=== PATIENT | male | born 1950 ===

== ENCOUNTER 2021-07-20 12:05 | Inpatient (IN) | payer MEDICARE ==
[~2021-07-20] VITALS: Ht 172.7 cm; Wt 62.9 kg
[2021-07-20] MEDS ORDERED: MELATONIN 3 MG TABLET PO PRN (14:00)
[2021-07-20] MEDS ORDERED: guaiFENesin/CODEINE (ROBITUSSIN AC) 10ML UDC PO PRN (14:00)
[2021-07-20] MEDS ORDERED: LOPERAMIDE 2 MG (IMODIUM) TABLET PO PRN (14:00)
[2021-07-20] MEDS ORDERED: ONDANSETRON 4 MG (ZOFRAN) ORAL DISSOLVE TAB PO PRN ×2 (14:00→18:30)
[2021-07-20] MEDS ORDERED: BISACODYL 10 MG SUPP (DULCOLAX) PR PRN (14:00)
[2021-07-20] MEDS ORDERED: DOCUSATE SODIUM 100 MG (COLACE) CAP PO PRN (14:00)
[2021-07-20] MEDS ORDERED: ALPRAZolam 0.25 MG (XANAX) TAB PO PRN (14:00)
[2021-07-20] MEDS ORDERED: LACTULOSE SYRUP 10GM/15ML (ENULOSE) 30ML UDC PO PRN (14:00)
[2021-07-20] MEDS ORDERED: ACETAMINOPHEN 325 MG TABLET PO PRN (14:00)
[2021-07-20] MEDS ORDERED: diphenhydrAMINE 25 MG TAB (BENADRYL) PO PRN (14:00)
[2021-07-20] MEDS ORDERED: FLEET ENEMA ADULT 1 EA BTL PR PRN (14:00)
[2021-07-20] MEDS ORDERED: ACET-2267 PO (14:21)
[2021-07-20] MEDS ORDERED: OMEG-154 PO (14:21)
[2021-07-20] MEDS ORDERED: ONDA-106 PO (14:21)
[2021-07-20] MEDS ORDERED: ASPI-1238 PO (14:21)
[2021-07-20] MEDS ORDERED: TRAM50TA3 PO (14:21)
[2021-07-20] MEDS ORDERED: ACET325C7 PO (14:21)
[2021-07-20] MEDS ORDERED: CETI10TA17 PO (14:21)
[2021-07-20] MEDS ORDERED: VIT1CAPS44 PO (14:21)
[2021-07-20] MEDS ORDERED: FAMO-119 PO (14:21)
[2021-07-20] MEDS ORDERED: LATA2.5D19 OD (14:21)
[2021-07-20] MEDS ORDERED: ATOR40TA70 PO (14:21)
[2021-07-20] MEDS ORDERED: SENN-109 PO (14:21)
[2021-07-20] MEDS ORDERED: BRIM5DRO12 OD (14:21)
[2021-07-20] MEDS ORDERED: POLY17PO6 PO (14:21)
[2021-07-20] MEDS ORDERED: ATEN50TA PO (14:21)
[2021-07-20] MEDS ORDERED: DEXA4TAB PO (14:21)
[2021-07-20] MEDS ORDERED: DORZ10DR22 OD (15:01)
[2021-07-20] MEDS ORDERED: DICY10CA12 PO (15:01)
[2021-07-20] MEDS ORDERED: PRED5DRO17 OD (15:01)
[2021-07-20] MEDS ORDERED: KETO5DRO OD (15:01)
[2021-07-20] MEDS ORDERED: NETA2.5D OU (15:04)
--- OUTSIDE RECORDS SUMMARY | 2021-07-20 15:41 | XMS REPORT | Clinical Summary ---
Author Author [facility] Organization [facility] Address Unknown Phone Unavailable Care Team Providers Care Parts Counter Representative Name Role Phone Angelo Gordon MD PCP Bartolo Cornejo MD Unavailable Source Comments Some departments are not documenting in the electronic medical record. If you d o not see the information that you expected, contact Release of Information in [facility] [employer] Information Management department at [phone] for further assistan ce in locating additional records.[facility] Allergies Comments Active Allergy Reactions Severity Noted Date Erythromycin RASH Medium 05/27/2020 Chlorhexidine Gluconate RASH Medium 2020 Tegaderm BLISTERS High 11/02/2020 Medications End Date Status Medication Sig Dispensed Refills Start Date Active atenoloL (TENORMIN) 50 mg Take 50 mg by 0 tablet mouth every 0 morning. Active brimonidine (ALPHAGAN) INSTILL 1 0 04/03/ 02 0.2 % ophthalmic solution DROP INTO 0 RIGHT EYE TWICE DAILY Active dorzolamide-timoloL INSTILL 1 0 (COSOPT) 2-0.5 % DROP INTO 0 ophthalmic solution RIGHT EYE TWICE DAILY Active latanoprost (XALATAN) INSTILL 1 0 04/29/20 2 0.005 % ophthalmic DROP INTO 0 solution RIGHT EYE AT BEDTIME Active RHOPRESSA 0.02 % drop INSTILL 1 0 04/28/20 2 INTO RIGHT 0 EYE AT BEDTIME Active aspirin EC 81 mg tablet Take 81 mg by 0 mouth at bedtime daily. Take with food. Active Miscellaneous Medical Urostomy 20 each 06/08/20 2 Supply misc supplies and 0 accessories Dispense one month of supplies Dx Bladder Cancer C67.9 Active cetirizine (ZYRTEC) 10 mg Take 5 mg by 0 tablet mouth daily as needed. Active Vit A,C,Z-Gaxg-Ozwvcn Take 2 0 (PRESERVISION AREDS) capsules by [phone] mouth daily. lbdx-zi-[id number] cap Active fish oil /omega-3 fatty Take 1 0 acids (SEA-OMEGA) capsule by 340/1000 mg capsule mouth daily. Active famotidine (PEPCID) 20 mg Take 20 mg by 0 tablet mouth twice daily as needed. Active polyethylene glycol 3350 Take one 12 each 1 1 (MIRALAX) 17 g packet packet by 1 mouth daily as needed. Active senna/docusate Take one 90 tablet 0 (SENOKOT-S) 8.6/50 mg tablet by 1 tablet mouth daily as needed. Active ketorolac (ACULAR) 0.5 % 0 ophthalmic solution 2 Active dicyclomine (BENTYL) 10 0 mg capsule 2 Active dexAMETHasone (DECADRON) Take two 30 tablet 0 0 4 mg tabletIndications: tablets by 2 Malignant neoplasm of mouth daily. overlapping sites of On Days 2-4 bladder (HCC) of each cycle. Active ondansetron HCL (ZOFRAN) Take one 30 tablet 0 0 8 mg tabletIndications: tablet by 2 Malignant neoplasm of mouth every 8 overlapping sites of hours as bladder (HCC) needed (nausea and vomiting). Active prednisoLONE (PRELONE) 15 0 mg/5 mL oral syrup Active acetaminophen (TYLENOL) Take three 40 tablet 0 325 mg tablet tablets by 2 mouth every 8 hours as needed for Pain. Active atorvastatin (LIPITOR) 40 Take one 90 tablet 3 mg tablet tablet by 2 mouth daily. Active traMADoL (ULTRAM) 50 mg Take one 20 tablet 0 tablet tablet by 2 mouth every 8 hours as needed for Pain. 07/20/2021 Discontinued acetaminophen (TYLENOL) Take one 20 tablet 0 500 mg tablet tablet by 1 mouth every 6 hours as needed for Pain. Max of 4,000 mg of acetaminophen in 24 hours. 07/13/2021 Discontinued (Removed from [facility] Med List) oxyCODONE (ROXICODONE) 5 Take one 15 tablet 0 1 mg tablet tablet by 1 mouth every 6 hours as needed for Pain 07/13/2021 Discontinued (Removed from [facility] Med List) ondansetron (ZOFRAN ODT) Dissolve one 30 tablet 1 4 mg rapid dissolve tablet by 1 tablet mouth every 6 hours as needed for Nausea or Vomiting. Place on tongue to dissolve. 07/13/2021 Discontinued (Removed from [facility] Med List) colestipoL (COLESTID) 1 0 gram tablet 2 07/13/2021 Discontinued (Removed from [facility] Med List) hydrocortisone acetate Insert or 0 (ANUSOL-HC) 25 mg rectal Apply 25 mg suppository to rectal area as directed every 12 hours. 07/20/2021 Discontinued atorvastatin (LIPITOR) 40 Take one 90 tablet 3 mg tablet tablet by 2 mouth daily. 07/20/2021 Discontinued (Reorder) acetaminophen (TYLENOL) Take three 40 tablet 0 325 mg tablet tablets by 2 mouth every 8 hours as needed for Pain. 07/20/2021 Discontinued (Reorder) traMADoL (ULTRAM) 50 mg Take one 20 tablet 0 tablet tablet by 2 mouth every 8 hours as needed for Pain. 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 From stroke Moderate malnutrition 07/15/2021 Acute ischemic stroke 07/14/2021 Overview: Formatting of this note might be differ ent from the original. 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 71 yo male with bladder cancer s/p RC/I C with newly diagnosed metastatic bladder cancer to the rectum returns fo r discussion of stone disease. Patient has not had any issues with sto thaddeus since surgery. Recent CT shows small lower pole, non-obstucting stones . Given other health challenges at this time, recommended observation of s tone with follow-up in 9 months. PLAN: - follow-up in clinic in 9 months Bladder cancer 06/04/2020 Malignant neoplasm of lateral wall of urinary bladder 05/20/2020 Overview: Formatting of this note is different fr om the original. History of Present Illness: History of kidney stones was found to h ave microscopic hematuria. Cystoscopy was completed mid Mar 2020 r evealed a 2 cm bladder tumor right lateral wall. CT scan of abd and pelvis was completed Mar 2020 and right sided bladder wall thickening was noted. 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 He denies a smoking his tory, but states he was exposed to second hand smoke quite frequently. - 04/08/2020 CT UROGRAM - Continued n onobstructive bilateral renal calculi. Suspected hepatic and right r enal cyst. There is right sided bladder wall thickening and a neoplasm cannot be excluded with follow up discussed above. No evidence of bladde r stone or ureterovesicular junction abnormality. - 04/21/2020 PATHOLOGY - Transurethral resection, bladder tumor: High grade papillary urothelial carcinoma wi th glandular differentiation, with invasion into subepithelial connective tissue and smooth muscle. - 05/04/2020 [facility] READ ON OUTSIDE PATH S LIDES: Final Diagnosis: A. Outside case "[id number]" (date radha ected 04/21/2020). 1. Transurethral resection, bladder tumor (Slide L2): P apillary urothelial carcinoma, high-grade, with micropapillary feature s, invasive into muscularis propria. No definitive lymphovascular invasion i dentified. 05/19/2020. CHEST: 1. No thoracic lymphadenopathy. 2. Small right upper lobe perifissura l favored to represent a benign lymph node or scar. A follow-up CT ches t in 3-6 months could be obtained to assess for stability. ABDOMEN AND PELVIS: 1. Persistent, asymmetric, irregular right lateral bladder wall thickening with nonvisualization of a p revious noted nodule projecting into the bladder lumen status post repo rted TURBT. The bladder wall thickening may be reactive or represent residual/infiltrative tumor. Continued attention on follow-up imagin g or cystoscopy is suggested. 2. No abdominopelvic lymphadenopathy. 3. Nonobstructive bilateral nephrolit hiasis without hydronephrosis. 06/04/2020: RC/IC: Ta+CIS N0 06/22/2020: Hgb 13.5; Cr 1.14 08/2020: Hgb 14; Cr 1.2; K/Cl wnl 05/2021: Rectal biopsy with metastatic cancer (urothelial ROXANA-3) L ast Assessment & Plan: Formatting of this note might be differ ent from the original. Continue treatment with med-onc Encounters Care Team Description Date Type Specialty 07/12/2021 Hospital Radiology Encounter 07/12/2021 Hospital Radiology Encounter Maurice Cao DO EXPLORATORY LAPAROTOMY, DIVERTING LOOP C OLOSTOMY 07/12/2021 Surgery Dallas Gaxiola MD Pozek, John-Paul J, MD 07/12/2021 Anesthesia Event Maurice Cao DO Colon obstruction (HCC) 07/12/2021 [facility] Hematology and Onco logy - Encounter 07/20/2021 07/12/2021 Travel Cody Louie MD 07/09/2021 Hospital Oncology Encounter Laina Cheney, ANTENNA SPECIALIST-COMPUTER ENGINEER Malignant neoplasm of overlapping sites of bladder (HCC) (Primary Dx) 07/09/2021 Office Visit Oncology Cody Louie MD 07/09/2021 Office Visit Oncology Cody Louie MD 07/09/2021 Hospital Lab Encounter Maurice Cao DO Malignant neoplasm of urinary bladder, u nspecified site (HCC) (Primary Dx); COVID-19 vaccine series completed 07/09/2021 Prep for Case Oncology 07/09/2021 Travel Cody Louie MD 07/07/2021 Orders Only Oncology Kvng Rm MD Nephrolithiasis 06/30/2021 Office Visit Urology Telehealth Cody Louie MD Malignant neoplasm of lateral wall of ur inary bladder (HCC) (Primary Dx); Encounter for screening laboratory testing for COVID-19 virus in asymptomatic patient 06/30/2021 Orders Only Oncology Keith Trinidad MD Malignant neoplasm of lateral wall of ur inary bladder (HCC) (Primary Dx) 06/29/2021 Office Visit Urology Telehealth Cody Louie MD Diarrhea 06/29/2021 Telephone Oncology Cynthia Villela, ADRIANA 06/29/2021 Orders Only Oncology Cody Louie MD Malignant neoplasm of overlapping sites of bladder (HCC) (Primary Dx) 06/29/2021 Orders Only Oncology Cody Louie MD Malignant neoplasm of overlapping sites of bladder (HCC) (Primary Dx) 06/25/2021 Office Visit Oncology Telehealth Cody Louie MD Appointment Request 06/25/2021 Telephone Oncology Cody Louie MD 06/25/2021 Orders Only Oncology Arrived 06/24/2021 Hospital Radiology Encounter Arrived 06/24/2021 Hospital Radiology Encounter Keith Trinidad MD Malignant neoplasm of lateral wall of ur inary bladder (HCC) (Primary Dx) 06/23/2021 Orders Only Urology Keith Trinidad MD General Question 06/22/2021 Telephone Urology Keith Trinidad MD Scheduling 06/21/2021 Telephone Urology Cody Louie MD Navigation Assessment 06/15/2021 Telephone Oncology Keith Trinidad MD Appointment (Patient calling for update) 06/14/2021 Telephone Urology Kvng Rm MD Nephrolithiasis 05/05/2021 Office Visit Urology 05/05/2021 Travel Kvng Rm MD PERCUTANEOUS NEPHROSTOLITHOTOMY/ PYELOST OLITHOTOMY - GREATER THAN 2 CM 04/29/2021 Surgery Chuyita Arroyo MD 04/29/2021 Anesthesia Event Kvng Rm MD Nephrolithiasis (Primary Dx) 04/29/2021 Orders Only Urology 04/29/2021 Travel Kvng Rm MD Kruse, Courtney, Danny Coon, RT(R)(CV),LRT Shawn Hall MD Nephrolithiasis 04/28/2021 Hospital - Encounter 04/30/2021 04/28/2021 Travel Miguel William MD 04/21/2021 Hosp Radiology Documentation Only Kvng Rm MD Follow-up Phone Call 04/21/2021 Telephone Urology Kvng Rm MD Kidney stone (Primary Dx); Anticoagulated 04/21/2021 Orders Only Urology from Last 3 Months Immunizations Name Administration Dates Next Due COVID-19 (MODERNA), mRNA 09/10/2020, 08/13/2020 vacc, 100 mcg/0.5 mL (PF) Surgical History Surgery Date Site/Laterality Comments HX APPENDECTOMY 06/19/1969 - 06/18/1970 HX VASECTOMY 06/19/1979 - 06/18/1980 CATARACT REMOVAL 06/19/2017 - Bilateral 06/18/2018 CYSTOSCOPY 03/19/2020 - 04/18/2020 TUMOR EXCISION 04/19/2020 bladder tumor excis ed - 05/18/2020 GLAUCOMA SURGERY 06/19/2017 - Bilateral 06/18/2018 LASER EYE SURGERY 06/19/2019 - Right 06/18/2020 CYSTECTOMY 06/04/2020 Abdomen/N/A Radical Cystect khoa/Prostatectomy with Ileal Conduit; BPLND performed by Radha Trinidad MD at [facility] OR KIDNEY STONE SURGERY 11/12/2020 Back/Right PERCUTANE OUS NEPHROSTOLITHOTOMY/ PYELOSTOLITHOTOMY - 2 CM OR LESS performed by Dominguez Bowman MD at [facility] OR Medical devices from this surgery are i n the Implants section. CYSTOURETHROSCOPY 02/15/2021 Ureter/Right URETEROSCOPY WITH URETERAL STENT EXCHANGE performed by Tristan Bowman MD at [facility] OR Medical devices from this surgery are i n the Implants section. KIDNEY STONE SURGERY 04/29/2021 Left PERCUTANE OUS NEPHROSTOLITHOTOMY/ PYELOSTOLITHOTOMY - GREATER THAN 2 CM performed by Kvng Rm MD at [facility] OR NEPHROSTOMY 04/29/[address] ACEMENT NEPHROSTOMY CATHETER WITH NEPHROSTOGRAM/ URETEROGRAM/ IMAGE-CHINMAY NCE performed by Kvng Rm MD at [facility] OR CYSTOURETHROSCOPY 04/29/2021 Left CYSTOURETHRO SCOPY WITH URETEROSCOPY AND/ OR PYELOSCOPY - WITH REMOVAL/ MANIPULATION CALCULUS performed by Kvng Rm MD at [facility] OR COLOSTOMY 07/12/2021 Abdomen/N/A EXPLORATORY LAP AROTOMY, DIVERTING LOOP COLOSTOMY performed by Maurice Cao DO at [facility] Medical History Medical History Date Comments Arthritis Hypertension Kidney stones Urothelial carcinoma (HCC) Arrhythmia PAF Cancer (HCC) skin Acid reflux did tx with zantac, now chemo vates pillows Social History Date Tobacco Use Types Packs/Day Years Used Never Smoker Smokeless Tobacco: Never Used Comments Alcohol Use Standard Drinks/Week Not Currently 0 (1 standard drink = 0.6 o z pure alcohol) Sex Assigned at Date Recorded Male 05/18/2020 12:22 PM CIRCULAR CLERK Date Recorded COVID-19 Exposure Response 07/12/2021 11:38 AM CIRCULAR CLERK In the last month, have you been in contact with No / Unsure someone who was confirmed or suspected to have Coronavirus / COVID-19? Last Filed Vital Signs Reading Time Taken Comments Vital Sign 128/79 07/20/2021 11:44 AM CIRCULAR CLERK Blood Pressure 80 07/20/2021 11:44 AM CIRCULAR CLERK Pulse 36.5 C (97.7 F) 07/20/2021 11:44 AM CIRCULAR CLERK Temperature 16 07/09/2021 10:06 AM CIRCULAR CLERK Respiratory Rate 93% 07/20/2021 11:44 AM CIRCULAR CLERK Oxygen Saturation - - Inhaled Oxygen Concentration 64.8 kg (142 lb 13.7 oz) 07/15/2021 9:04 AM CIRCULAR CLERK Weight 172.7 cm (5' 8") 07/15/2021 9:04 AM CIRCULAR CLERK Height 21.72 07/15/2021 9:04 AM CIRCULAR CLERK Body Mass Index Plan of Treatment Health Maintenance Due Date Last Done Comments MEDICARE ANNUAL WELLNESS 1950 VISIT DTAP/TDAP VACCINES (1 - 02/27/1966 Tdap) HEPATITIS C SCREENING 02/27/1966 PHYSICAL (COMPREHENSIVE) 02/27/1966 EXAM COLORECTAL CANCER 02/27/1998 SCREENING SHINGLES RECOMBINANT 02/27/1998 VACCINE (1 of 2) PNEUMONIA (PPSV23) 02/27/2013 VACCINE (1 of 1 - PPSV23) INFLUENZA VACCINE 01/17/2021 COVID-19 VACCINE Completed 04/22/2021, 09/10/2020, 08/13/2020, Additional history exists Goals Goal Patient Associated Recent Progress Patient-Stat Aut hor Goal Type Problems ed? Resume normal activities Hospital Yes Aracelis Schaeffer, RN Note: To become as active as I can and get use to this thing on my side and return to normal activity. Recover from illness Hospital On track (07/12/2021 Yes April Marie, 6:07 PM CIRCULAR CLERK) RN Note: "To heal and recover, and get stronger, be as healthy as I can" Implants Device Identifier Shelf Expiration Date Model / Serial / L ot Implanted Type Area Manufactur er 10/30/2023 [id number] / [id number] / [id number] Stent Ureteral 6fr 28cm Soft Tria - Right: Kidney B OSTON [id number] SCIENTIFIC Implanted: Qty: 1 on 02/15/2021 at [facility] Device Identifier Shelf Expiration Date Model / Serial / L ot Explanted Type Area Manufactur er 04/03/2023 [id number] / NA / [id number] Stent Ureteral 6fr 30cm Pigtail Right: Kidney BOSTO N Curve Taper Tip Bladder - S Na SCIENT[employer] Implanted: Qty: 1 on 11/12/2020 by UROLOGY Tristan Bowman MD at [facility] Explanted: Qty: 1 on 02/15/2021 at [facility] Procedures Comments Procedure Name Priority Date/Time Associated Diag nosis CBC Routine 07/20/2021 8:17 AM CIRCULAR CLERK HC PHOSPHOROUS, SERUM Routine 07/19/2021 2:42 AM CIRCULAR CLERK HC MAGNESIUM Routine 07/19/2021 2:42 AM CIRCULAR CLERK HC BASIC METABOLIC PANEL Routine 07/19/2021 2:42 AM CIRCULAR CLERK HC PHOSPHOROUS, SERUM Routine 07/17/2021 3:35 AM CIRCULAR CLERK HC MAGNESIUM Routine 07/17/2021 3:35 AM CIRCULAR CLERK HC BASIC METABOLIC PANEL Routine 07/17/2021 3:35 AM CIRCULAR CLERK HC PHOSPHOROUS, SERUM Routine 07/16/2021 4:40 AM CIRCULAR CLERK HC MAGNESIUM Routine 07/16/2021 4:40 AM CIRCULAR CLERK HC BASIC METABOLIC PANEL Routine 07/16/2021 4:40 AM CIRCULAR CLERK HC CBC,AUTOMATED Routine 07/16/2021 4:40 AM CIRCULAR CLERK PV CAROTID ARTERY DUPLEX Routine 07/15/2021 SCAN 9:04 AM CIRCULAR CLERK HC PHOSPHOROUS, SERUM Routine 07/15/2021 2:55 AM CIRCULAR CLERK HC MAGNESIUM Routine 07/15/2021 2:55 AM CIRCULAR CLERK HC BASIC METABOLIC PANEL Routine 07/15/2021 2:55 AM CIRCULAR CLERK HC CBC,AUTOMATED Routine 07/15/2021 2:55 AM CIRCULAR CLERK POC GLUCOSE 07/14/2021 11:04 AM CIRCULAR CLERK HC HEMOGLOBIN A1C STAT 07/14/2021 6:45 AM CIRCULAR CLERK HC STAT 07/14/2021 LIPID-5:CHOL/TRG/HDL/LDL+ 6:45 AM CIRCULAR CLERK VLDL HC TROPONIN-I Routine 07/14/2021 5:56 AM CIRCULAR CLERK HC PHOSPHOROUS, SERUM Routine 07/14/2021 3:11 AM CIRCULAR CLERK HC MAGNESIUM Routine 07/14/2021 3:11 AM CIRCULAR CLERK HC BASIC METABOLIC PANEL Routine 07/14/2021 3:11 AM CIRCULAR CLERK HC CBC,AUTOMATED Routine 07/14/2021 3:11 AM CIRCULAR CLERK TRANSFUSE RBC'S STAT 07/14/2021 12:45 AM CIRCULAR CLERK TROPONIN-I Routine 07/14/2021 12:20 AM CIRCULAR CLERK MRA HEAD WO CONTRAST STAT 07/13/2021 10:54 PM CIRCULAR CLERK MRI HEAD WO CONTRAST STAT 07/13/2021 10:35 PM CIRCULAR CLERK HC BLOOD STAT 07/13/2021 GASES;(CALCULATED 02) 9:21 PM CIRCULAR CLERK HC LACTIC ACID(LACTATE) STAT 07/13/2021 9:21 PM CIRCULAR CLERK HC CALCIUM IONIZED STAT 07/13/2021 9:21 PM CIRCULAR CLERK HC PHOSPHOROUS, SERUM STAT 07/13/2021 9:21 PM CIRCULAR CLERK HC MAGNESIUM STAT 07/13/2021 9:21 PM CIRCULAR CLERK BASIC METABOLIC PANEL STAT 07/13/2021 9:21 PM CIRCULAR CLERK HC CBC,AUTOMATED STAT 07/13/2021 9:21 PM CIRCULAR CLERK TROPONIN-I 07/13/2021 6:01 PM CIRCULAR CLERK HC TROPONIN-I Routine 07/13/2021 12:[address] HEAD WO CONTRAST STAT 07/13/2021 11:54 AM CIRCULAR CLERK 2D + DOPPLER ECHO W/ GILDA 07/13/2021 CONTRAST 8:00 AM CIRCULAR CLERK CHEST SINGLE VIEW GILDA 07/13/2021 7:13 AM CIRCULAR CLERK TROPONIN-I Routine 07/13/2021 5:52 AM CIRCULAR CLERK CHEST SINGLE VIEW STAT 07/13/2021 3:33 AM CIRCULAR CLERK HC AMMONIA Routine 07/13/2021 3:00 AM CIRCULAR CLERK CBC Routine 07/13/2021 2:42 AM CIRCULAR CLERK HC BLOOD STAT 07/13/2021 GASES;(CALCULATED 02) 2:32 AM CIRCULAR CLERK TRANSFUSE PLASMA (FFP) STAT 07/13/2021 2:18 AM CIRCULAR CLERK HC TEG W KAOLIN R Routine 07/13/2021 ACTIVATED CLOTTING TIME 1:15 AM CIRCULAR CLERK HC TROPONIN-I Add on 07/13/2021 1:15 AM CIRCULAR CLERK HC LACTIC ACID(LACTATE) GILDA 07/13/2021 1:15 AM CIRCULAR CLERK HC CALCIUM IONIZED Routine 07/13/2021 1:15 AM CIRCULAR CLERK HC PHOSPHOROUS, SERUM Routine 07/13/2021 1:15 AM CIRCULAR CLERK HC MAGNESIUM Routine 07/13/2021 1:15 AM CIRCULAR CLERK HC CBC,AUTOMATED Routine 07/13/2021 1:15 AM CIRCULAR CLERK HC BASIC METABOLIC PANEL Routine 07/13/2021 1:15 AM CIRCULAR CLERK TRANSFUSE PLASMA (FFP) STAT 07/13/2021 12:23 AM CIRCULAR CLERK PREPARE PLASMA (FFP) STAT 07/13/2021 12:11 AM CIRCULAR CLERK TRANSFUSE CRYOPRECIPITATE STAT 07/12/2021 11:18 PM CIRCULAR CLERK TRANSFUSE APHERESIS STAT 07/12/2021 PLATELETS 11:17 PM CIRCULAR CLERK TRANSFUSE RBC'S STAT 07/12/2021 11:04 PM CIRCULAR CLERK CBC STAT 07/12/2021 10:50 PM CIRCULAR CLERK PREPARE APHERESIS Routine 07/12/2021 PLATELETS 10:20 PM CIRCULAR CLERK PREPARE CRYOPRECIPITATE STAT 07/12/2021 9:55 PM CIRCULAR CLERK TRANSFUSE RBC'S STAT 07/12/2021 9:40 PM CIRCULAR CLERK HC TEG W KAOLIN R STAT 07/12/2021 ACTIVATED CLOTTING TIME 9:15 PM CIRCULAR CLERK HC CALCIUM IONIZED STAT 07/12/2021 9:15 PM CIRCULAR CLERK HC PHOSPHOROUS, SERUM STAT 07/12/2021 9:15 PM CIRCULAR CLERK HC MAGNESIUM STAT 07/12/2021 9:15 PM CIRCULAR CLERK HC COMPREHENSIVE STAT 07/12/2021 METABOLIC PANEL 9:15 PM CIRCULAR CLERK HC CBC,AUTOMATED STAT 07/12/2021 9:15 PM CIRCULAR CLERK POC GLUCOSE 07/12/2021 8:51 PM CIRCULAR CLERK HC SODIUM, POC 07/12/2021 8:50 PM CIRCULAR CLERK HC POTASSIUM, POC 07/12/2021 8:50 PM CIRCULAR CLERK HC HEMATOCRIT POC 07/12/2021 8:50 PM CIRCULAR CLERK HC BLOOD GAS, POC 07/12/2021 8:50 PM CIRCULAR CLERK COLOSTOMY/ SKIN LEVEL 07/12/2021 Malignant neopl asm of CECOSTOMY 12:29 PM CIRCULAR CLERK urinary bladder, unspecified site (HCC) HC ABO GROUP STAT 07/12/2021 11:45 AM CIRCULAR CLERK TELEMETRY STRIPS-SCAN 07/12/2021 12:00 AM CIRCULAR CLERK ECG-SCAN 07/12/2021 12:00 AM CIRCULAR CLERK ECG-SCAN 07/12/2021 12:00 AM CIRCULAR CLERK HC COMPREHENSIVE Routine 07/09/2021 Malignant barney plasm of METABOLIC PANEL 9:19 AM CIRCULAR CLERK overlapping sites o f bladder (HCC) HC CBC W/ AUTOMATED DIFF Routine 07/09/2021 Malig nant neoplasm of 9:19 AM CIRCULAR CLERK overlapping sites of bladder (HCC) CT CHEST EXTERNAL IMAGING Routine 06/24/2021 12:[address] ABD/PEL EXTERNAL Routine 06/24/2021 IMAGING 12:00 AM CIRCULAR CLERK HC MAGNESIUM Routine 04/30/2021 5:31 AM CIRCULAR CLERK HC PHOSPHOROUS, SERUM Routine 04/30/2021 5:31 AM CIRCULAR CLERK HC BASIC METABOLIC PANEL Routine 04/30/2021 5:31 AM CIRCULAR CLERK HC CBC,AUTOMATED Routine 04/30/2021 5:[address] ABD/PELV WO CONTRAST Routine 04/30/2021 3:52 AM CIRCULAR CLERK FLUORO MOBILE IN OR Routine 04/29/2021 9:33 AM CIRCULAR CLERK HC STONE ANALYSIS Routine 04/29/2021 Kidney stone (INFRARED) 9:15 AM CIRCULAR CLERK CYSTOURETHROSCOPY WITH 04/29/2021 Kidney stone URETEROSCOPY AND/ OR 7:28 AM CIRCULAR CLERK PYELOSCOPY - WITH REMOVAL/ MANIPULATION CALCULUS PERCUTANEOUS PLACEMENT 04/29/2021 Kidney stone NEPHROSTOMY CATHETER WITH 7:28 AM CIRCULAR CLERK NEPHROSTOGRAM/ URETEROGRAM/ IMAGE-GUIDANCE PERCUTANEOUS 04/29/2021 Kidney stone NEPHROSTOLITHOTOMY/ 7:28 AM CIRCULAR CLERK PYELOSTOLITHOTOMY - GREATER THAN 2 CM HC MAGNESIUM Routine 04/29/2021 3:55 AM CIRCULAR CLERK HC PHOSPHOROUS, SERUM Routine 04/29/2021 3:55 AM CIRCULAR CLERK HC BASIC METABOLIC PANEL Routine 04/29/2021 3:55 AM CIRCULAR CLERK HC CBC,AUTOMATED Routine 04/29/2021 3:55 AM CIRCULAR CLERK CULTURE-URINE STAT 04/28/2021 W/SENSITIVITY 5:40 PM CIRCULAR CLERK TYPE & CROSSMATCH Routine 04/28/2021 3:58 PM CIRCULAR CLERK HC COMPREHENSIVE STAT 04/28/2021 METABOLIC PANEL 3:58 PM CIRCULAR CLERK HC CBC W/ AUTOMATED DIFF STAT 04/28/2021 3:58 PM CIRCULAR CLERK IR NEPHROSTOMY TUBE Routine 04/28/2021 Kidney sto ne PLACEMENT 12:46 PM CIRCULAR CLERK TELEMETRY STRIPS-SCAN 04/28/2021 12:00 AM CIRCULAR CLERK TELEMETRY STRIPS-SCAN 04/28/2021 12:00 AM CIRCULAR CLERK from Last 3 Months Results * (ABNORMAL) CBC (07/20/2021 8:17 AM CIRCULAR CLERK) Only the most recent of 11 results within the time period is included. White Blood 11.0 4.5 - 11.0 [facility] Cells RBC 3.82 (L) 4.4 - 5.5 M/UL [facility] Hemoglobin 11.3 (L) 13.5 - 16.5 GM/DL [facility] Hematocrit 34.8 (L) 40 - 50 % [facility] MCV 91.1 80 - 100 FL [facility] MCH 29.5 26 - 34 PG [facility] MCHC 32.4 32.0 - 36.0 G/DL [facility] RDW 15.0 11 - 15 % [facility] Platelet Count 297 150 - 400 [facility] MPV 8.0 7 - 11 FL [facility] Specimen Blood (substance) Performing Organization Address City/[facility] Code P dg Number [facility] [address] [place] [address] * PHOSPHORUS (07/19/2021 2:42 AM CIRCULAR CLERK) Only the most recent of 10 results within the time period is included. Pathologist [facility] Phosphorus 3.4 2.0 - 4.5 MG/DL MAIN LAB Specimen Blood (substance) Performing Organization Address [facility] P dg Number [facility] [address] [place] [address] * MAGNESIUM (07/19/2021 2:42 AM CIRCULAR CLERK) Only the most recent of 10 results within the time period is included. Magnesium 1.9 1.6 - 2.6 mg/dL MAIN LAB Specimen Blood (substance) Performing Organization Address [facility] P dg Number [facility] [address] [place] [address] * (ABNORMAL) BASIC METABOLIC PANEL (07/19/2021 2:42 AM CIRCULAR CLERK) Only the most recent of 9 results within the time period is included. Pathologist [facility] Sodium 137 137 - 147 MMOL/L [facility] Potassium 4.7 3.5 - 5.1 MMOL/L [facility] Chloride 101 98 - 110 MMOL/L [facility] CO2 23 21 - 30 MMOL/L [facility] Anion Gap 13 (H) 3 - 12 [facility] Glucose 86 70 - 100 MG/DL [facility] Blood Urea 26 (H) 7 - 25 MG/DL [facility] Nitrogen Creatinine 0.96 0.4 - 1.24 MG/DL [facility] Calcium 8.3 (L) 8.5 - 10.6 MG/DL [facility] eGFR >60Comment: eGFR calculated >60 mL/min [facility] using the CKD-EPIcr_R equation Specimen Blood (substance) Performing Organization Address City/State/ZIP Code P dg Number [facility] [address] [place] [address] * PV CAROTID ARTERY DUPLEX SCAN (07/15/2021 9:04 AM CIRCULAR CLERK) LEFT CCA DIST 0.83 m/s OTHER OUTSIDE SYS LAB LEFT CCA DIST 0.21 m/s OTHER OUTSIDE ENGLE LAB LEFT CCA PROX 0.84 m/s OTHER OUTSIDE SYS LAB LEFT CCA PROX 0.14 m/s OTHER OUTSIDE ENGLE LAB LEFT ICA DIST 0.76 m/s OTHER OUTSIDE SYS LAB LEFT ICA DIST 0.26 m/s OTHER OUTSIDE ENGLE LAB LEFT ICA MID 0.58 m/s OTHER OUTSIDE SYS LAB LEFT ICA MID 0.22 m/s OTHER OUTSIDE ENGLE LAB LEFT ICA PROX 0.48 m/s OTHER OUTSIDE SYS LAB LEFT ICA PROX 0.19 m/s OTHER OUTSIDE ENGLE LAB LEFT ECA SYS 1.45 m/s OTHER OUTSIDE LAB LEFT SUBCLAVIAN 1.26 m/s OTHER OUTSIDE SYS LAB LEFT VERTEBRAL 0.47 m/s OTHER OUTSIDE SYS LAB RIGHT CCA DIST 0.85 m/s OTHER OUTSIDE SYS LAB RIGHT CCA DIST 0.24 m/s OTHER OUTSIDE ENGLE LAB RIGHT CCA PROX 0.90 m/s OTHER OUTSIDE SYS LAB RIGHT CCA PROX 0.22 m/s OTHER OUTSIDE ENGLE LAB RIGHT ICA DIST 0.81 m/s OTHER OUTSIDE SYS LAB RIGHT ICA DIST 0.28 m/s OTHER OUTSIDE ENGLE LAB RIGHT ICA MID 0.63 m/s OTHER OUTSIDE SYS LAB RIGHT ICA MID 0.19 m/s OTHER OUTSIDE ENGLE LAB RIGHT ICA PROX 0.52 m/s OTHER OUTSIDE SYS LAB RIGHT ICA PROX 0.21 m/s OTHER OUTSIDE ENGLE LAB RIGHT ECA SYS 1.06 m/s OTHER OUTSIDE LAB RIGHT 1.24 m/s OTHER OUTSIDE SUBCLAVIAN SYS LAB RIGHT VERTEBRAL 0.32 m/s OTHER OUTSIDE SYS LAB CV ECHO PV Leisa Frias, Student OTHER OUTSIDE [facility] Cardiology Sherri [employer] OTHER OUTSIDE Ultrasound LAB Machine RIGHT ICA/CCA 0.95 m/s OTHER OUTSIDE SYS LAB LEFT ICA/CCA 0.92 m/s OTHER OUTSIDE SYS LAB Modality Anatomical Region Laterality Ultrasound Specimen Narrative OTHER OUTSIDE LAB - 07/15/2021 10:14 AM CIRCULAR CLERK 1. Minimal atheromatous changes visualized in bilateral common and internal carotid arteries without hemodynamically significant (>50%) stenosis. 2. There is normal antegrade flow in tahmina ateral vertebral arteries 3. No evidence of proximal subclavian st enosis bilaterally No prior studies available for comparison. Performing Organization Address City/[facility] Code P dg Number OTHER OUTSIDE LAB * (ABNORMAL) POC GLUCOSE (07/14/2021 11:04 AM CIRCULAR CLERK) Only the most recent of 2 results within the time period is included. Glucose, POC 118 (H) 70 - 100 MG/DL [facility] Specimen Performing Organization Address City/[facility] P dg Number [facility] [address] [phone] * HEMOGLOBIN A1C (07/14/2021 6:45 AM CIRCULAR CLERK) Hemoglobin A1C 5.6 4.0 - 6.0 % [facility] Comment: The ADA recommends that most patients with type 1 and type 2 diabetes maintain an A1c level <7%. Specimen Blood (substance) Performing Organization Address [facility] P dg Number [facility] [address] [phone] * (ABNORMAL) LIPID PROFILE (07/14/2021 6:45 AM CIRCULAR CLERK) Cholesterol 87 <200 MG/DL [facility] Triglycerides 101 <150 MG/DL [facility] HDL 31 (L) >40 MG/DL [facility] LDL 34 <100 mg/dL [facility] VLDL 20 MG/DL [facility] Non HDL 56 MG/DL [facility] Cholesterol Comment: Calculated non-HDL Cholesterol (non-HDL-C) indirectly measures LDL-C, Lp(a), IDL-C, and VLDL-C. It is a surrogate marker for Apoprotein B. Goal should be less than 130 mg/dL. Specimen Blood (substance) Performing Organization Address City/State/ZIP Code P dg Number [facility] [address] [place] [address] * (ABNORMAL) TROPONIN-I (07/14/2021 5:56 AM CIRCULAR CLERK) Only the most recent of 6 results within the time period is included. Troponin-I 0.60 (H) 0.0 - 0.05 NG/ML MAIN LAB Specimen Blood (substance) Performing Organization Address City/State/ZIP Code P dg Number [facility] [address] [place] [address] * TRANSFUSE RBC'S (07/14/2021 2:52 AM CIRCULAR CLERK) Only the most recent of 3 results within the time period is included. Specimen Blood (substance) * MRA HEAD WO CONTRAST (07/13/2021 10:54 PM CIRCULAR CLERK) Modality Anatomical Region Laterality Magnetic Resonance Head Specimen Addenda Addendum by Maurice Parks MD on 07/14/2021 4:55 AM CIRCULAR CLERK Finalized by Maurice Parks M.D. on 07/14/2021 12:32 AM. Dictated by Maurice Hicks M.D. on 07/14/2021 12:08 AM.Addendum: Dr. Hicks discussed these findings with the patient's nurse Priti by telephone at 12:36 AM 07/14/2021 Approved by Maurice Hicks M.D. on 07/14/2021 12:36 AM By my electronic signature, I attest that I have personally reviewed the images for this examination and formulated the interpretations and opinions expressed in this report Finalized by Maurice Parks M.D. on 07/14/2021 4:52 AM. Dictated by Maurice Hicks M.D. on 07/14/2021 12:35 AM. Impressions [facility] RESULTS - 07/14/2021 12:32 AM CIRCULAR CLERK MR brain: 1. Redemonstration of recent multifoca l cerebral and cerebellar infarcts with a dominant large left [employer]FORMATION TECH[employer]OLOGY INSTRUCTOR territory infarct. This appears represent a combination of embolic and watershed infarcts. Gradient susceptibility within the right caudate, left parietal lobe, and left greater than right occipital lobes, compatible with petechial hemorrhagic conversion. 2. No midline shift or herniation. 3. Mild supratentorial white matter di sease that is likely related to chronic microvascular ischemic changes in a patient this age. MRA head: 1. Occlusion of the left INFORMATION TECHNOLOGY INSTRUCTOR at the leve l of the mid to distal P2 segment (corresponding to the large left [employer]FORMATION TECH[employer]OLOGY INSTRUCTOR territory infarct). 2. Otherwise patent major intracranial a rteries without focal stenosis. By my electronic signature, I attest that I have personally reviewed the images for this examination and formulated the interpretations and opinions expressed in this report Narrative [facility] RESULTS - 07/14/2021 12:32 AM CIRCULAR CLERK EXAM: MRI AND MRA BRAIN HISTORY: left INFORMATION TECH[employer]OLOGY INSTRUCTOR infarct, TECHNIQUE: Multiplanar and multisequence MR imaging of the head was performed. This was done without contrast. 3D [id number]-il-[id number] images of the [place] was performed without contrast. MRA maximum intensity projection images were obtained of the brain with image postprocessing. COMPARISON: CT head 07/13/2021 FINDINGS: Dr. Maurice Parks M.D. has personally reviewed these images and formulated the interpretations and opinions expressed in this report. MR brain: Mild generalized cerebral volume loss and prominence of the ventricles and subarachnoid spaces. There is no midline shift or mass effect. The major vascular flow-voids of the [place] and dural venous sinuses are unremarkable. Redemonstration of recent large left [employer]FORMATION TECH[employer]OLOGY IN[employer]CTOR territory infarct. There are additional multifocal smaller infarcts involving the bilateral cerebral and cerebellar hemispheres, most notably the right caudate, left thalamus, and posterior right occipital lobe and within the watershed zones of the bilateral frontal and parietal lobes. There is a subcentimeter focus of susceptibility at the left parietal lobe (series 12, image 53), corresponding to a tiny hyperdensity on CT, likely intravascular thrombus rather than hemorrhage as it is located at the anterior margin of a left parietal small area of acute infarct. 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 Some of the left occipital foci and the right caudate focus of susceptibility also show some minimal high T1 signal. There are additional small scattered foci of white matter FLAIR hyperintensity in the bilateral cerebral hemispheres without associated diffusion abnormality, favored for chronic hypervascular ischemic changes. Trace right mastoid effusion. Bilateral ocular lens replacements. MRA head: The distal internal carotid, vertebral, and basilar arteries are patent without focal narrowing or occlusion. There is occlusion/loss of flow void within the left [employer]FORMATION TECH[employer]OLOGY INSTRUCTOR at the level of the mid to distal P2 segment. Portions of the left P3 and P4 segments also show absent flow voids. The anterior, middle, and right posterior cerebral arteries are patent without focal narrowing. No aneurysm or arteriovenous malformation is identified. Procedure Note Maurice Parks MD - 07/14/2021 EXAM: MRI AND MRA BRAIN HISTORY: left INFORMATION TECH[employer]OLOGY INSTRUCTOR infarct, TECHNIQUE: Multiplanar and multisequence MR imaging of the head was performed. This was done without contrast. 3D [id number] images of the [place] was performed without contrast. MRA maximum intensity projection images were obtained of the brain with image postprocessing. COMPARISON: CT head 07/13/2021 FINDINGS: Dr. Maurice Parks M.D. has personally reviewed these images and formulated the interpretations and opinions expressed in this report. MR brain: Mild generalized cerebral volume loss and prominence of the ventricles and subarachnoid spaces. There is no midline shift or mass effect. The major vascular flow-voids of the [place] and dural venous sinuses are unremarkable. Redemonstration of recent large left INFORMATION TECH[employer]OLOGY INSTRUCTOR territory infarct. There are additional multifocal smaller infarcts involving the bilateral cerebral and cerebellar hemispheres, most notably the right caudate, left thalamus, and posterior right occipital lobe and within the watershed zones of the bilateral frontal and parietal lobes. There is a subcentimeter focus of susceptibility at the left parietal lobe (series 12, image 53), corresponding to a tiny hyperdensity on CT, likely intravascular thrombus rather than hemorrhage as it is located at the anterior margin of a left parietal small area of acute infarct. 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 Some of the left occipital foci and the right caudate focus of susceptibility also show some minimal high T1 signal. There are additional small scattered foci of white matter FLAIR hyperintensity in the bilateral cerebral hemispheres without associated diffusion abnormality, favored for chronic hypervascular ischemic changes. Trace right mastoid effusion. Bilateral ocular lens replacements. MRA head: The distal internal carotid, vertebral, and basilar arteries are patent without focal narrowing or occlusion. There is occlusion/loss of flow void within the left [employer]FORMATION TECH[employer]OLOGY INSTRUCTOR at the level of the mid to distal P2 segment. Portions of the left P3 and P4 segments also show absent flow voids. The anterior, middle, and right posterior cerebral arteries are patent without focal narrowing. No aneurysm or arteriovenous malformation is identified. IMPRESSION MR brain: 1. Redemonstration of recent multifocal cerebral and cerebellar infarcts with a dominant large left [employer]FORMATION TECH[employer]OLOGY INSTRUCTOR territory infarct. This appears represent a combination of embolic and watershed infarcts. Gradient susceptibility within the right caudate, left parietal lobe, and left greater than right occipital lobes, compatible with petechial hemorrhagic conversion. 2. No midline shift or herniation. 3. Mild supratentorial white matter dis ease that is likely related to chronic microvascular ischemic changes in a patient this age. MRA head: 1. Occlusion of the left INFORMATION TECHNOLOGY INSTRUCTOR at the leve l of the mid to distal P2 segment (corresponding to the large left [employer]FORMATION TECH[employer]OLOGY INSTRUCTOR territory infarct). 2. Otherwise patent major intracranial a rteries without focal stenosis. By my electronic signature, I attest that I have personally reviewed the images for this examination and formulated the interpretations and opinions expressed in this report Performing Organization Address City/State/ZIP Code P dg Number [facility] * MRI HEAD WO CONTRAST (07/13/2021 10:35 PM CIRCULAR CLERK) Modality Anatomical Region Laterality Magnetic Resonance Head Specimen Addenda Addendum by Maurice Parks MD on 07/14/2021 4:55 AM CIRCULAR CLERK Finalized by Maurice Parks M.D. on 07/14/2021 12:32 AM. Dictated by Maurice Hicks M.D. on 07/14/2021 12:08 AM.Addendum: Dr. Hicsk discussed these findings with the patient's nurse Priti by telephone at 12:36 AM 07/14/2021 Approved by Maurice Hicks M.D. on 07/14/2021 12:36 AM By my electronic signature, I attest that I have personally reviewed the images for this examination and formulated the interpretations and opinions expressed in this report Finalized by Maurice Parks M.D. on 07/14/2021 4:52 AM. Dictated by Maurice Hicks M.D. on 07/14/2021 12:35 AM. Impressions [facility] RESULTS - 07/14/2021 12:32 AM CIRCULAR CLERK MR brain: 1. Redemonstration of recent multifoca l cerebral and cerebellar infarcts with a dominant large left [employer]FORMATION TECH[employer]OLOGY IN[employer]CTOR territory infarct. This appears represent a combination of embolic and watershed infarcts. Gradient susceptibility within the right caudate, left parietal lobe, and left greater than right occipital lobes, compatible with petechial hemorrhagic conversion. 2. No midline shift or herniation. 3. Mild supratentorial white matter di sease that is likely related to chronic microvascular ischemic changes in a patient this age. MRA head: 1. Occlusion of the left INFORMATION TECHNOLOGY INSTRUCTOR at the leve l of the mid to distal P2 segment (corresponding to the large left INFORMATION TECHNOLOGY INSTRUCTOR territory infarct). 2. Otherwise patent major intracranial a rteries without focal stenosis. By my electronic signature, I attest that I have personally reviewed the images for this examination and formulated the interpretations and opinions expressed in this report Narrative [facility] RESULTS - 07/14/2021 12:32 AM CIRCULAR CLERK EXAM: MRI AND MRA BRAIN HISTORY: left INFORMATION TECHNOLOGY INSTRUCTOR infarct, TECHNIQUE: Multiplanar and multisequence MR imaging of the head was performed. This was done without contrast. 3D [id number] images of the [place] was performed without contrast. MRA maximum intensity projection images were obtained of the brain with image postprocessing. COMPARISON: CT head 07/13/2021 FINDINGS: Dr. Maurice Parks M.D. has personally reviewed these images and formulated the interpretations and opinions expressed in this report. MR brain: Mild generalized cerebral volume loss and prominence of the ventricles and subarachnoid spaces. There is no midline shift or mass effect. The major vascular flow-voids of the [place] and dural venous sinuses are unremarkable. Redemonstration of recent large left INFORMATION TECHNOLOGY INSTRUCTOR territory infarct. There are additional multifocal smaller infarcts involving the bilateral cerebral and cerebellar hemispheres, most notably the right caudate, left thalamus, and posterior right occipital lobe and within the watershed zones of the bilateral frontal and parietal lobes. There is a subcentimeter focus of susceptibility at the left parietal lobe (series 12, image 53), corresponding to a tiny hyperdensity on CT, likely intravascular thrombus rather than hemorrhage as it is located at the anterior margin of a left parietal small area of acute infarct. 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 Some of the left occipital foci and the right caudate focus of susceptibility also show some minimal high T1 signal. There are additional small scattered foci of white matter FLAIR hyperintensity in the bilateral cerebral hemispheres without associated diffusion abnormality, favored for chronic hypervascular ischemic changes. Trace right mastoid effusion. Bilateral ocular lens replacements. MRA head: The distal internal carotid, vertebral, and basilar arteries are patent without focal narrowing or occlusion. There is occlusion/loss of flow void within the left INFORMATION TECHNOLOGY INSTRUCTOR at the level of the mid to distal P2 segment. Portions of the left P3 and P4 segments also show absent flow voids. The anterior, middle, and right posterior cerebral arteries are patent without focal narrowing. No aneurysm or arteriovenous malformation is identified. Procedure Note Maurice Parks MD - 07/14/2021 EXAM: MRI AND MRA BRAIN HISTORY: left INFORMATION TECHNOLOGY INSTRUCTOR infarct, TECHNIQUE: Multiplanar and multisequence MR imaging of the head was performed. This was done without contrast. 3D maqf-ed-tcusvo images of the [place] was performed without contrast. MRA maximum intensity projection images were obtained of the brain with image postprocessing. COMPARISON: CT head 07/13/2021 FINDINGS: Dr. Maurice Parks M.D. has personally reviewed these images and formulated the interpretations and opinions expressed in this report. MR brain: Mild generalized cerebral volume loss and prominence of the ventricles and subarachnoid spaces. There is no midline shift or mass effect. The major vascular flow-voids of the [place] and dural venous sinuses are unremarkable. Redemonstration of recent large left INFORMATION TECHNOLOGY INSTRUCTOR territory infarct. There are additional multifocal smaller infarcts involving the bilateral cerebral and cerebellar hemispheres, most notably the right caudate, left thalamus, and posterior right occipital lobe and within the watershed zones of the bilateral frontal and parietal lobes. There is a subcentimeter focus of susceptibility at the left parietal lobe (series 12, image 53), corresponding to a tiny hyperdensity on CT, likely intravascular thrombus rather than hemorrhage as it is located at the anterior margin of a left parietal small area of acute infarct. 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 Some of the left occipital foci and the right caudate focus of susceptibility also show some minimal high T1 signal. There are additional small scattered foci of white matter FLAIR hyperintensity in the bilateral cerebral hemispheres without associated diffusion abnormality, favored for chronic hypervascular ischemic changes. Trace right mastoid effusion. Bilateral ocular lens replacements. MRA head: The distal internal carotid, vertebral, and basilar arteries are patent without focal narrowing or occlusion. There is occlusion/loss of flow void within the left INFORMATION TECHNOLOGY INSTRUCTOR at the level of the mid to distal P2 segment. Portions of the left P3 and P4 segments also show absent flow voids. The anterior, middle, and right posterior cerebral arteries are patent without focal narrowing. No aneurysm or arteriovenous malformation is identified. IMPRESSION MR brain: 1. Redemonstration of recent multifocal cerebral and cerebellar infarcts with a dominant large left INFORMATION TECHNOLOGY INSTRUCTOR territory infarct. This appears represent a combination of embolic and watershed infarcts. Gradient susceptibility within the right caudate, left parietal lobe, and left greater than right occipital lobes, compatible with petechial hemorrhagic conversion. 2. No midline shift or herniation. 3. Mild supratentorial white matter dis ease that is likely related to chronic microvascular ischemic changes in a patient this age. MRA head: 1. Occlusion of the left INFORMATION TECHNOLOGY INSTRUCTOR at the leve l of the mid to distal P2 segment (corresponding to the large left INFORMATION TECHNOLOGY INSTRUCTOR territory infarct). 2. Otherwise patent major intracranial a rteries without focal stenosis. By my electronic signature, I attest that I have personally reviewed the images for this examination and formulated the interpretations and opinions expressed in this report Performing Organization Address City/State/ZIP Code P dg Number RAD RESULTS * LACTIC ACID(LACTATE) (07/13/2021 9:21 PM CIRCULAR CLERK) Only the most recent of 2 results within the time period is included. Pathologist [facility] Lactic Acid 0.9 0.5 - 2.0 MMOL/L MAIN LAB Specimen Blood (substance) Performing Organization Address City/State/ZIP Code P dg Number MAIN LAB [address] [place] [address] * BLOOD GASES, ARTERIAL (07/13/2021 9:21 PM CIRCULAR CLERK) Only the most recent of 2 results within the time period is included. Pathologist [facility] pH-Arterial 7.43 7.35 - 7.45 [facility] pCO2-Arterial 40 35 - 45 MMHG [facility] pO2-Arterial 89 80 - 100 MMHG [facility] Base 2.1 MMOL/L [facility] Excess-Arterial O2 Sat-Arterial 97.3 95 - 99 % [facility] Bicarbonate-ART 26.3 21 - 28 MMOL/L [facility] -Daniel Specimen Blood, arterial - Blood (substance) Performing Organization Address City/State/ZIP Code P dg Number [facility] [address] [place] [address] * IONIZED CALCIUM (07/13/2021 9:21 PM CIRCULAR CLERK) Only the most recent of 3 results within the time period is included. Ionized Calcium 1.17 1.0 - 1.3 MMOL/L [facility] Specimen Blood (substance) Performing Organization Address City/State/ZIP Code P dg Number [facility] [address] [place] [address] * CT HEAD WO CONTRAST (07/13/2021 11:54 AM CIRCULAR CLERK) Modality Anatomical Region Laterality Computed Tomography Head Specimen Impressions [facility] RESULTS - 07/13/2021 12:16 PM CIRCULAR CLERK 1. Multifocal acute to subacute appear ing bilateral cerebral and cerebellar infarcts (presumably embolic in etiology) with a dominant moderate to large left INFORMATION TECHNOLOGY INSTRUCTOR territory infarct. 2. No evidence of hemorrhagic conversi on, midline shift, or herniation. Findings were discussed with Dr. Garcia by myself via telephone at 12:13 PM on 07/13/2021. Finalized by Dwaine Vo DO on 07/13/2021 12:16 PM. Dictated by Dwaine Vo DO on 07/13/2021 12:04 PM. Narrative [facility] RESULTS - 07/13/2021 12:16 PM CIRCULAR CLERK EXAM: CT HEAD HISTORY: Rule out stroke, visual difficulties. TECHNIQUE: Multiple contiguous axial images were obtained of the brain without intravenous contrast. COMPARISON: None. FINDINGS: Moderate to large focal area of parenchymal hypodensity, pardo-white matter dedifferentiation, and sulcal compression in the left posterior mesial temporal- occipital INFORMATION TECHNOLOGY INSTRUCTOR territory with additional smaller foci of parenchymal hypodensity throughout the bilateral cerebral hemispheres (notably the right caudate, left frontal and parietal cortices, and posterior right occipital lobe), compatible with acute to subacute infarcts. There are also several small age-indeterminate bilateral cerebellar infarcts, the majority of which appear recent. Localize cerebral mass effect associated with the dominant left INFORMATION TECHNOLOGY INSTRUCTOR territory infarct. No evidence of acute intracranial hemorrhage, herniation, or hydrocephalus. There is age-appropriate prominence of the ventricles and subarachnoid spaces. The basal cisterns are patent. The mastoid air cells and visualized paranasal sinuses are well-aerated. Previous ocular lens replacements are noted. Procedure Note Dwaine Vo DO - 07/13/2021 EXAM: CT HEAD HISTORY: Rule out stroke, visual difficulties. TECHNIQUE: Multiple contiguous axial images were obtained of the brain without intravenous contrast. COMPARISON: None. FINDINGS: Moderate to large focal area of parenchymal hypodensity, pardo-white matter dedifferentiation, and sulcal compression in the left posterior mesial temporal- occipital [employer] territory with additional smaller foci of parenchymal hypodensity throughout the bilateral cerebral hemispheres (notably the right caudate, left frontal and parietal cortices, and posterior right occipital lobe), compatible with acute to subacute infarcts. There are also several small age-indeterminate bilateral cerebellar infarcts, the majority of which appear recent. Localize cerebral mass effect associated with the dominant left [employer] territory infarct. No evidence of acute intracranial hemorrhage, herniation, or hydrocephalus. There is age-appropriate prominence of the ventricles and subarachnoid spaces. The basal cisterns are patent. The mastoid air cells and visualized paranasal sinuses are well-aerated. Previous ocular lens replacements are noted. IMPRESSION 1. 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 2. No evidence of hemorrhagic conversio n, midline shift, or herniation. Findings were discussed with Dr. Garcia by myself via telephone at 12:13 PM on 07/13/2021. Finalized by Dwaine Vo DO on 07/13/2021 12:16 PM. Dictated by Dwaine Vo DO on 07/13/2021 12:04 PM. Performing Organization Address City/State/ZIP Code P dg Number [facility] * 2D + DOPPLER ECHO W/ CONTRAST (07/13/2021 8:00 AM CIRCULAR CLERK) IVS 0.85 0.6 - 1.0 cm OTHER OUTSIDE LAB LVIDD 3.02 4.2 - 5.8 cm OTHER OUTSIDE LAB LVIDS 2.26 2.5 - 4.0 cm OTHER OUTSIDE LAB PW 0.81 0.6 - 1.0 cm OTHER OUTSIDE LAB Left Ventricle 105.00 62 - 150 mL OTHER OUTSIDE Diastolic LAB Volume Left Ventricle 60 34 - 74 mL OTHER OUTSIDE Diastolic LAB Volume Index Left Ventricle 30.00 21 - 61 mL OTHER OUTSIDE Systolic Volume LAB Left Ventricle 17 11 - 31 mL OTHER OUTSIDE Systolic Volume LAB Index TDI lateral e' 0.13 m/s OTHER OUTSIDE LAB Right 2.66 1.9 - 3.5 cm OTHER OUTSIDE Ventricular Mid LAB Diameter LA size 3.26 3.0 - 4.0 cm OTHER OUTSIDE LAB LA volume 47.00 18 - 58 mL OTHER OUTSIDE LAB Right Atrial 12.08 <18 cm2 OTHER OUTSIDE Area LAB Right Atrial 4.67 2.1 - 2.7 cm OTHER OUTSIDE Major Dimension LAB AV peak 1.23 m/s OTHER OUTSIDE velocity LAB MV Peak A Deshawn 0.98 m/s OTHER OUTSIDE LAB MV Peak E Deshawn 1.26 m/s OTHER OUTSIDE PW LAB Right 3.47 2.5 - 4.1 cm OTHER OUTSIDE Ventricular LAB Basal Diameter Right Heart 0.20 m/s OTHER OUTSIDE Systolic TDI S' LAB Right Heart 2.42 >1.7 cm OTHER OUTSIDE Systolic Mmode LAB TAPSE Sinus 2.88 2.8 - 4.0 cm OTHER OUTSIDE LAB BSA 1.76 m2 OTHER OUTSIDE LAB FS 25.17 28 - 44 % OTHER OUTSIDE LAB EF 42.78 % OTHER OUTSIDE LAB Proximal aorta 3.0 2.6 - 3.8 cm OTHER OUTSIDE LAB LV mass 63 88 - 224 g OTHER OUTSIDE LAB RWT 0.54 <=0.42 OTHER OUTSIDE LAB E/A ratio 1.29 OTHER OUTSIDE LAB Lateral E/E' 9.69 OTHER OUTSIDE ratio LAB Left Atrium 26.70 16 - 34 OTHER OUTSIDE Index LAB Cardiology Siemens [id number] OTHER OUTSIDE Ultrasound LAB Machine Left Ventricle 36 49 - 115 g/m2 OTHER OUTSIDE Mass Index LAB TDI Medial e' 0.090 m/s OTHER OUTSIDE LAB Medial E/E' 14.00 OTHER OUTSIDE ratio LAB TR PEAK 2.9 m/s OTHER OUTSIDE VELOCITY LAB RV SYSTOLIC 34 OTHER OUTSIDE PRESSURE LAB PUGH'S 70 % OTHER OUTSIDE BIPLANE EF LAB Modality Anatomical Region Laterality Ultrasound Specimen Narrative OTHER OUTSIDE LAB - 07/13/2021 8:28 AM CIRCULAR CLERK Left Ventricle: The left ventricular size is normal. Concentric remodeling. The left ventricular systolic function is normal. The ejection fraction by Pugh's biplane method is 70%. There are no segmental wall motion abnormalities. Normal left ventricular diastolic function. Right Ventricle: The right ventricular size is normal. The right ventricular systolic function is normal. Left Atrium: Normal size. Right Atrium: Normal size. No hemodynamically significant valvular abnormalities. The estimated pulmonary artery systolic pressure is 34mmHg + right atrial pressure. Performing Organization Address City/State/ZIP Code P dg Number OTHER OUTSIDE LAB * CHEST SINGLE VIEW (07/13/2021 7:13 AM CIRCULAR CLERK) Only the most recent of 2 results within the time period is included. Modality Anatomical Region Laterality Computed Radiography Chest Specimen Impressions [facility] RES[facility] - 07/13/2021 9:23 AM CIRCULAR CLERK 1. Persistent tiny lucency within the ri ght lung apex that is suggestive of a tiny pneumothorax. Follow-up inspiration and expiration chest x-ray 2. Unchanged small right pleural effusio n and right lung base consolidation. Finalized by Bernard Sheikh M.D. on 07/13/2021 9:23 AM. Dictated by Bernard Sheikh M.D. on 07/13/2021 9:18 AM. Narrative [facility] RES[facility] - 07/13/2021 9:23 AM CIRCULAR CLERK CHEST SINGLE VIEW Clinical Indication: R/o PTX. Comparison: Chest x-ray July 13, 2021 at 03:27 Findings: Persistent tiny lucency in the right lung apex. Unchanged small right pleural effusion and adjacent consolidation. Left lung remains clear. Heart size is normal. Procedure Note Bernard Sheikh MD - 07/13/2021 CHEST SINGLE VIEW Clinical Indication: R/o PTX. Comparison: Chest x-ray July 13, 2021 at 03:27 Findings: Persistent tiny lucency in the right lung apex. Unchanged small right pleural effusion and adjacent consolidation. Left lung remains clear. Heart size is normal. IMPRESSION 1. Persistent tiny lucency within the ri ght lung apex that is suggestive of a tiny pneumothorax. Follow-up inspiration and expiration chest x-ray 2. Unchanged small right pleural effusio n and right lung base consolidation. Finalized by Bernard Sheikh M.D. on 07/13/2021 9:23 AM. Dictated by Bernard Sheikh M.D. on 07/13/2021 9:18 AM. Performing Organization Address City/State/ZIP Code P dg Number [facility] * TRANSFUSE PLASMA (FFP) (07/13/2021 3:12 AM CIRCULAR CLERK) Only the most recent of 2 results within the time period is included. * AMMONIA (07/13/2021 3:00 AM CIRCULAR CLERK) Ammonia 34 9 - 35 MCMOL/L [facility] Specimen Blood (substance) Performing Organization Address City/[facility]/ZIP Code P dg Number [facility] [address] [phone] * TEG WITH KAOLIN (07/13/2021 1:15 AM CIRCULAR CLERK) Only the most recent of 2 results within the time period is included. MA Kaolin 60.6 >49.9 MM REFERENCE LAB R Kaolin 3.1 <9.1 MIN REFERENCE LAB RK Kaolin 4.5 <12.1 MIN REFERENCE LAB K Kaolin 1.4 <3.1 MIN REFERENCE LAB Angle Kaolin 70.2 >54.9 DEG REFERENCE LAB Lysis30 0.0 <8.1 % REFERENCE LAB Specimen Blood (substance) Performing Organization Address City/[facility]/ZIP Code P dg Number REFERENCE LAB REFERENCE LAB See results for address. * TRANSFUSE CRYOPRECIPITATE (07/13/2021 12:34 AM CIRCULAR CLERK) * PREPARE PLASMA (FFP) (07/13/2021 12:11 AM CIRCULAR CLERK) Units Ordered 2 [facility] Unit Number [id number] MAIN LAB Blood Component THAWED PLASMA [facility] Type Unit Division 00 [facility] Status OF Unit TRANSFUSED [facility] ISSUE DATE TIME [facility] PRODUCT CODE [id number] MAIN LAB BLOOD TYPE B POS MAIN LAB CODING STATUS 7300 [facility]IN LAB BLOOD [id number] [facility] EXPIRATION DATE Transfusion OK TO TRANSFUSE [facility] Status Unit Number [id number] MAIN LAB Blood Component APHERESIS PLASMA THAWED [facility] Type Unit Division 00 [facility]IN [facility] Status OF Unit TRANSFUSED [facility] MAIN LAB ISSUE DATE TIME [facility] PRODUCT CODE [id number] [facility] MAIN LAB BLOOD TYPE B POS MAIN LAB CODING STATUS 7300 [facility] BLOOD [id number] [facility] EXPIRATION DATE Transfusion OK TO TRANSFUSE [facility] Status Specimen Other (Specify) Performing Organization Address [facility]/ZIP Code P dg Number [facility] [address] [place] [address] * TRANSFUSE APHERESIS PLATELETS (07/13/2021 12:07 AM CIRCULAR CLERK) * PREPARE APHERESIS PLATELETS (07/12/2021 10:20 PM CIRCULAR CLERK) Units Ordered 1 [facility] Unit Number [id number] [facility] Blood Component APHERESIS PLT,LEUKO REDUCED, MAIN LAB Type BACTERIAL MONITOR 7D, IRRADIATED,2ND CONT Unit Division 00 [facility] Status OF Unit TRANSFUSED [facility] ISSUE DATE TIME [facility] PRODUCT CODE [id number] [facility]IN [facility] BLOOD TYPE A NEG [facility] CODING STATUS 0600 [facility] BLOOD [id number] [facility] EXPIRATION DATE Transfusion OK TO TRANSFUSE [facility] Status Specimen Other (Specify) Performing Organization Address City/[facility]/ZIP Code P dg Number [facility] [address] [place] [address] * PREPARE CRYOPRECIPITATE (07/12/2021 9:55 PM CIRCULAR CLERK) Units Ordered 1 MAIN LAB Unit Number [id number] [facility] Blood Component CRY 5 POOLED [facility] Type Unit Division 00 [facility] Status OF Unit TRANSFUSED [facility] ISSUE DATE TIME [facility] PRODUCT CODE [id number] MAIN LAB BLOOD TYPE O POS MAIN LAB CODING STATUS 5100 MAIN LAB BLOOD [id number] MAIN LAB EXPIRATION DATE Transfusion OK TO TRANSFUSE MAIN LAB Status Specimen Other (Specify) Performing Organization Address City/[facility] P dg Number [facility] [address] [place] [address] * (ABNORMAL) COMPREHENSIVE METABOLIC PANEL (07/12/2021 9:15 PM CIRCULAR CLERK) Only the most recent of 3 results within the time period is included. Sodium 141 137 - 147 MMOL/L [facility] Potassium 5.5 (H) 3.5 - 5.1 MMOL/L [facility] Chloride 106 98 - 110 MMOL/L [facility] Glucose 115 (H) 70 - 100 MG/DL [facility] Blood Urea 33 (H) 7 - 25 MG/DL [facility] Nitrogen Creatinine 1.74 (H) 0.4 - 1.24 MG/DL [facility] Calcium 8.3 (L) 8.5 - 10.6 MG/DL [facility] Total Protein 5.1 (L) 6.0 - 8.0 G/DL [facility] Total Bilirubin 0.8 0.3 - 1.2 MG/DL [facility] Albumin 2.8 (L) 3.5 - 5.0 G/DL MAIN LAB Alk Phosphatase 55 25 - 110 U/L [facility] AST (SGOT) 23 7 - 40 U/L [facility] CO2 20 (L) 21 - 30 MMOL/L MAIN LAB ALT (SGPT) 8 7 - 56 U/L [facility] Anion Gap 15 (H) 3 - 12 MAIN LAB eGFR 41 (L)Comment: eGFR calculated >60 mL/min MAIN LAB using the CKD-EPIcr_R equation Specimen Blood (substance) Performing Organization Address [facility]/ZIP Code P dg Number MAIN LAB [address] [place] [address] * (ABNORMAL) POC BLOOD GAS ARTERIAL (07/12/2021 8:50 PM CIRCULAR CLERK) PH-ART-POC 7.39 7.35 - 7.45 MAIN LAB YNA5-TEU-QDF 32 (L) 35 - 45 MMHG [facility] PO2-ART-POC 103 (H) 80 - 100 MMHG [facility]IN LAB Base 6.0 MMOL/L MAIN LAB Def-ART-POC O2 Sat-ART-POC 98.0 95 - 99 % MAIN LAB Bicarbonate-ART 19.1 (L) 21 - 28 MMOL/L MAIN LAB -POC Specimen Performing Organization Address [facility] P dg Number [facility] [address] [phone] * (ABNORMAL) POC SODIUM (07/12/2021 8:50 PM CIRCULAR CLERK) Sodium-POC 136 (L) 137 - 147 MMOL/L [facility] Specimen Performing Organization Address City/[facility]/ZIP Code P dg Number [facility] [address] [place] [address] * POC POTASSIUM (07/12/2021 8:50 PM CIRCULAR CLERK) Potassium-POC 5.0 3.5 - 5.1 MMOL/L [facility] Specimen Performing Organization Address [facility]/ZIP [facility] P dg Number [facility] [address] [place] [address] * (ABNORMAL) POC HEMATOCRIT (07/12/2021 8:50 PM CIRCULAR CLERK) Hemoglobin POC 7.8 (L) 13.5 - 16.5 GM/DL [facility] Hematocrit POC 23.0 (L) 40 - 50 % [facility] Specimen Performing Organization Address City/State/ZIP Code P dg Number [facility] [address] [place] [address] * TYPE & CROSSMATCH (07/12/2021 11:45 AM CIRCULAR CLERK) Only the most recent of 2 results within the time period is included. Units Ordered 3 [facility] Crossmatch 07/15/2021,2359 [facility] Expires Record Check FOUND [facility] ABO/RH(D) O NEG [facility] Antibody Screen NEG [facility] Electronic YES [facility] Crossmatch Unit Number [id number] [facility] Blood Component RBC,ADSOL,LEUKO REDUCED,2ND [facility] MAIN L AB Type CONT. Unit Division 00 [facility]IN LAB Status OF Unit TRANSFUSED [facility] ISSUE DATE TIME [facility]IN [facility] PRODUCT CODE [id number] [facility] MAIN LAB BLOOD TYPE O NEG [facility] CODING STATUS 9500 [facility] MAIN LAB BLOOD [id number] [facility] LAB EXPIRATION DATE Transfusion OK TO TRANSFUSE [facility] Status Crossmatch COMPATIBLE,ELECTRONIC [facility] Result Unit Number [id number] [facility] Blood Component RBC,ADSOL,LEUKO REDUCED,2ND [facility] MAIN L AB Type CONT. Unit Division 00 [facility] Status OF Unit TRANSFUSED [facility] ISSUE DATE TIME [facility] PRODUCT CODE [id number] [facility]IN [facility] BLOOD TYPE O NEG [facility] CODING STATUS 9500 [facility] BLOOD [id number] [facility] EXPIRATION DATE Transfusion OK TO TRANSFUSE [facility] Status Crossmatch COMPATIBLE,ELECTRONIC [facility] Result Unit Number [id number] [facility] Blood Component RBC,ADSOL,LEUKO REDUCED,2ND [facility] MAIN L AB Type CONT. Unit Division 00 [facility] Status OF Unit TRANSFUSED [facility] ISSUE DATE TIME [facility] PRODUCT CODE [id number] [facility] BLOOD TYPE O NEG [facility] CODING STATUS 9500 [facility] BLOOD [id number] [facility] EXPIRATION DATE Transfusion OK TO TRANSFUSE [facility] Status Crossmatch COMPATIBLE,ELECTRONIC [facility] Result Specimen Performing Organization Address City/State/ZIP Code P dg Number [facility] [address] [place] [address] * TELEMETRY STRIPS-SCAN (07/12/2021 12:00 AM CIRCULAR CLERK) Narrative 07/12/2021 12:00 AM CIRCULAR CLERK Ordered by an unspecified provider. * ECG-SCAN (07/12/2021 12:00 AM CIRCULAR CLERK) Narrative 07/12/2021 12:00 AM CIRCULAR CLERK Ordered by an unspecified provider. * ECG-SCAN (07/12/2021 12:00 AM CIRCULAR CLERK) Narrative 07/12/2021 12:00 AM CIRCULAR CLERK Ordered by an unspecified provider. * (ABNORMAL) CBC AND DIFF (07/09/2021 9:19 AM CIRCULAR CLERK) Only the most recent of 2 results within the time period is included. White Blood 9.6 4.5 - 11.0 K/UL [facility] Cells RBC 4.41 4.4 - 5.5 M/UL [facility] Hemoglobin 13.3 (L) 13.5 - 16.5 GM/DL [facility] Hematocrit 39.9 (L) 40 - 50 % [facility] MCV 90.6 80 - 100 FL [facility] MCH 30.1 26 - 34 PG [facility] MCHC 33.2 32.0 - 36.0 G/DL [facility] RDW 13.9 11 - 15 % [facility] Platelet Count 208 150 - 400 K/UL [facility] MPV 7.8 7 - 11 FL [facility] Neutrophils 85 (H) 41 - 77 % [facility] Lymphocytes 4 (L) 24 - 44 % [facility] Monocytes 9 4 - 12 % [facility] Eosinophils 1 0 - 5 % [facility] Basophils 1 0 - 2 % [facility] Absolute 8.20 (H) 1.8 - 7.0 K/UL [facility] Neutrophil Count Absolute Lymph 0.40 (L) 1.0 - 4.8 K/UL [facility] Count Absolute 0.90 (H) 0 - 0.80 K/UL [facility] Monocyte Count Absolute 0.10 0 - 0.45 K/UL [facility] Eosinophil Count Absolute 0.10 0 - 0.20 K/UL [facility] Basophil Count Specimen Blood (substance) Performing Organization Address City/State/ZIP Code P dg Number [facility] [address] [place] [address] * CT CHEST EXTERNAL IMAGING (06/24/2021 12:05 AM CIRCULAR CLERK) Modality Anatomical Region Laterality Computed Radiography Specimen Narrative Scheduling, Silent - 07/20/2021 12:35 PM CIRCULAR CLERK This order has been auto finalized and does not contain a result. * CT ABD/PEL EXTERNAL IMAGING (06/24/2021 12:00 AM CIRCULAR CLERK) Modality Anatomical Region Laterality Computed Radiography Specimen Narrative Scheduling, Silent - 07/20/2021 12:35 PM CIRCULAR CLERK This order has been auto finalized and does not contain a result. * CT ABD/PELV WO CONTRAST (04/30/2021 3:52 AM CIRCULAR CLERK) Modality Anatomical Region Laterality Computed Tomography Abdomen, Pelvis Specimen Impressions [facility] RESULTS - 04/30/2021 10:35 AM CIRCULAR CLERK 1. Development of moderate to severe pro ctitis and mild dilation of the more proximal large bowel. 2. Interval left percutaneous nephrolith otomy and percutaneous nephrostomy tube. A couple tiny residual calculi persist. 3. Removal of the right nephroureteral s tent and slight increase in mild hydronephrosis. 4. Development of a small parastomal her michelle. CRITICAL FINDINGS: The above impressions were verbally communicated by telephone to Dr. Rm by Jostin Alexander MD at 04/30/2021 10:00 AM. Approved by Neeraj Alexander MD on 04/30/2021 10:01 AM By my electronic signature, I attest that I have personally reviewed the images for this examination and formulated the interpretations and opinions expressed in this report Finalized by Bernard Sheikh M.D. on 04/30/2021 10:35 AM. Dictated by Neeraj Alexander MD on 04/30/2021 8:02 AM. Narrative [facility] RESULTS - 04/30/2021 10:[address] ABDOMEN AND PELVIS Clinical Indication: Assess for left kidney stones status post PCNL Technique: Multiple contiguous axial CT images were obtained through the abdomen and pelvis without IV contrast. Post processing coronal and sagittal reconstruction images were made from the axial images. IV contrast: None. Bowel contrast: None Comparison: CT chest abdomen pelvis December 29, 2020; CT abdomen pelvis November 12, 2020; other priors FINDINGS: Limited evaluation without the use of IV contrast which includes the viscera and vasculature. Lower Thorax: Mild coronary artery calcifications. Bibasilar scarring. Stable right upper lobe 4 mm chetan-fissural pulmonary nodule (series 3 image 1). Liver and Biliary system: Left hepatic lobe is absent. Scattered hepatic cysts and other hypodensities that are too small to characterize. No biliary ductal dilatation. No radiopaque gallstones. Spleen: Unremarkable. Adrenal Glands and Kidneys: * Adrenal glands unremarkable. * Kidneys are mildly atrophic with bilateral renal cysts. There is contrast opacification of a left renal cyst from recent intervention. * Interval left percutaneous nephrostomy tube placement with scattered foci of air in the perinephric space and minimal hematoma. Significant improvement in left renal calculi burden with a punctate residual calculus in the lower pole as well as in the renal pelvis. No hydronephrosis. * There has been removal of the right indwelling nephroureteral stent with slightly worsened mild hydroureteronephrosis. There are several tiny right nonobstructive renal calculi. Pancreas and Retroperitoneum: Pancreas is unremarkable. No retroperitoneal lymphadenopathy. Aorta and Major Vessels: Abdominal aorta is normal in caliber with minimal calcific atherosclerosis. Bowel, Mesentery and Peritoneal space: Development of moderate to severe rectal wall thickening and surrounding fat stranding. The large bowel proximal to this is gaseous, distended, and dilated up to 6 cm. Small bowel is normal in caliber. Small bowel bowel anastomosis in the central abdomen. No ascites or pneumoperitoneum. Pelvis: Prior cystoproctectomy and pelvic lymph node dissection. No recurrent mass within the resection bed. No pelvic lymphadenopathy. Abdominal wall and Osseous Structures: Right abdominal wall ostomy with development of a small bowel containing parastomal hernia. Small fat-containing left inguinal and umbilical hernias. Thoracolumbar spondylosis. Procedure Note Bernard Sheikh MD - 04/30/2021 CT ABDOMEN AND PELVIS Clinical Indication: Assess for left kidney stones status post PCNL Technique: Multiple contiguous axial CT images were obtained through the abdomen and pelvis without IV contrast. Post processing coronal and sagittal reconstruction images were made from the axial images. IV contrast: None. Bowel contrast: None Comparison: CT chest abdomen pelvis December 29, 2020; CT abdomen pelvis November 12, 2020; other priors FINDINGS: Limited evaluation without the use of IV contrast which includes the viscera and vasculature. Lower Thorax: Mild coronary artery calcifications. Bibasilar scarring. Stable right upper lobe 4 mm chetan-fissural pulmonary nodule (series 3 image 1). Liver and Biliary system: Left hepatic lobe is absent. Scattered hepatic cysts and other hypodensities that are too small to characterize. No biliary ductal dilatation. No radiopaque gallstones. Spleen: Unremarkable. Adrenal Glands and Kidneys: * Adrenal glands unremarkable. * Kidneys are mildly atrophic with bilateral renal cysts. There is contrast opacification of a left renal cyst from recent intervention. * Interval left percutaneous nephrostomy tube placement with scattered foci of air in the perinephric space and minimal hematoma. Significant improvement in left renal calculi burden with a punctate residual calculus in the lower pole as well as in the renal pelvis. No hydronephrosis. * There has been removal of the right indwelling nephroureteral stent with slightly worsened mild hydroureteronephrosis. There are several tiny right nonobstructive renal calculi. Pancreas and Retroperitoneum: Pancreas is unremarkable. No retroperitoneal lymphadenopathy. Aorta and Major Vessels: Abdominal aorta is normal in caliber with minimal calcific atherosclerosis. Bowel, Mesentery and Peritoneal space: Development of moderate to severe rectal wall thickening and surrounding fat stranding. The large bowel proximal to this is gaseous, distended, and dilated up to 6 cm. Small bowel is normal in caliber. Small bowel bowel anastomosis in the central abdomen. No ascites or pneumoperitoneum. Pelvis: Prior cystoproctectomy and pelvic lymph node dissection. No recurrent mass within the resection bed. No pelvic lymphadenopathy. Abdominal wall and Osseous Structures: Right abdominal wall ostomy with development of a small bowel containing parastomal hernia. Small fat-containing left inguinal and umbilical hernias. Thoracolumbar spondylosis. IMPRESSION 1. Development of moderate to severe pro ctitis and mild dilation of the more proximal large bowel. 2. Interval left percutaneous nephrolith otomy and percutaneous nephrostomy tube. A couple tiny residual calculi persist. 3. Removal of the right nephroureteral s tent and slight increase in mild hydronephrosis. 4. Development of a small parastomal her michelle. CRITICAL FINDINGS: The above impressions were verbally communicated by telephone to Dr. Rm by Jostin Alexander MD at 04/30/2021 10:00 AM. Approved by Neeraj Alexander MD on 04/30/2021 10:01 AM By my electronic signature, I attest that I have personally reviewed the images for this examination and formulated the interpretations and opinions expressed in this report Finalized by Bernard Sheikh M.D. on 04/30/2021 10:35 AM. Dictated by Neeraj Alexander MD on 04/30/2021 8:02 AM. Performing Organization Address City/State/ZIP Code P dg Number [facility] RESULTS * FLUORO MOBILE IN OR (04/29/2021 9:33 AM CIRCULAR CLERK) Modality Anatomical Region Laterality Radio Fluoroscopy Specimen Narrative [facility] - 04/29/2021 9:34 AM CIRCULAR CLERK This order has been auto finalized and does not contain a result. Performing Organization Address City/State/ZIP Code P dg Number [facility] * STONE ANALYSIS (04/29/2021 9:15 AM CIRCULAR CLERK) Stone Source Passed Stone REFERENCE LAB [facility], [address] [place] [address] Interpretation 90% Calcium oxalate REFERENCE LAB monohydrate 10% Calcium phosphate (apatite) [facility], [address] [place] [address] Specimen Tissue specimen (specimen) - Kidney, Left Performing Organization Address City/[facility]/ZIP [facility] P dg Number REFERENCE LAB REFERENCE LAB See results for address. * CULTURE-URINE W/SENSITIVITY (04/28/2021 5:40 PM CIRCULAR CLERK) Battery Name URINE CULTURE [facility] Report Status FINAL 04/29/2021 [facility] Specimen URINE NEPHROSTOMY [facility] Description Special No special requests [facility] Requests Culture <10,000 CFU/ml [facility] mixed contaminants Specimen Urine Performing Organization Address City/[facility]/ZIP Code P dg Number [facility] [address] [place] [address] * IR NEPHROSTOMY TUBE PLACEMENT (04/28/2021 12:46 PM CIRCULAR CLERK) Modality Anatomical Region Laterality X-Ray Angiography Specimen Impressions [facility] RESULTS - 04/28/2021 3:12 PM CIRCULAR CLERK Successful placement of left percutaneous nephrostomy tube with access to the mid pole. I, Shawn Hall M.D, the attending radiologist, was present for the critical and campo portions of the procedure with a midlevel, resident, and/or fellow participating. Overlapping portions were non campo and I was immediately available. I interpret the critical and campo portion of this procedure. @TT Approved by Martin Llanes M.D. on 04/28/2021 2:14 PM By my electronic signature, I attest that I have personally reviewed the images for this examination and formulated the interpretations and opinions expressed in this report Finalized by Shawn Hall M.D. on 04/28/2021 3:12 PM. Dictated by Martin Llanes M.D. on 04/28/2021 2:09 PM. Narrative [facility] - 04/28/2021 3:12 PM CIRCULAR CLERK 1. PERCUTANEOUS NEPHROSTOMY TUBE PLACEMENT UNDER ULTRASOUND AND FLUOROSCOPIC GUIDANCE 2. ANTEGRADE NEPHROSTOGRAM INDICATION: Needing percutaneous access to left renal collecting system for lithotripsy HITCHER: Martin Llanes M.D. and Shawn Hall M.D. MEDICATIONS: Fentanyl and Versed CATHETER: 8 Martiniquais Percuteneous Nephrostomy Tube TECHNIQUE/FINDINGS: The risks, benefits, and alternatives to the procedure and sedation were explained. The specific risks of infection and damage to the kidney were detailed and accepted. Written informed consent was obtained. The patient was placed prone on the angiography table and the left flank was prepped and draped in sterile fashion. Ultrasonographic evaluation of the left renal collecting system was carried out. Hardcopy images were stored to PACS. Lidocaine was injected at the access site. Under direct ultrasound guidance a middle and upper pole calyx were attempted to be accessed which were nondilated and ultimately was unsuccessful. At this time a 22-gauge Chiba needle was advanced into the lower pole of the kidney and stomach into the lower pole calyx renal stone. Contrast was injected with a small amount of air to delineate the collecting system and posterior calyces. The filling defect in the lower pole was noted consistent with the known calculus. Lidocaine was then injected slightly cephalad to the previous access site. A second 22-gauge Chiba needle was then advanced into the left posterior middle pole contrast injection confirmed location within the middle pole calyx. A 0.018-inch wire was placed, and the needle exchanged for a 6 Martiniquais transitional dilator which was advanced into the mid ureter. The inner portion of the dilator and wire were removed and an Amplatz wire was advanced through the catheter into the mid ureter. The catheter was removed over the wire. An 8 Martiniquais nephrostomy tube was advanced over the wire and positioned using fluoroscopy. The Monroe loop was formed and locked in the renal pelvis. Contrast was injected to confirm location. The catheter was sutured with 2-0 Ethilon to the flank and attached to gravity drainage. The procedure was well tolerated, and the patient discharged to the recovery area in satisfactory condition.. Procedure Note Shawn Hall MD - 04/28/2021 1. PERCUTANEOUS NEPHROSTOMY TUBE PLACEME NT UNDER ULTRASOUND AND FLUOROSCOPIC GUIDANCE 2. ANTEGRADE NEPHROSTOGRAM INDICATION: Needing percutaneous access to left renal collecting system for lithotripsy HITCHER: Martin Llanes M.D. and Shawn Hall M.D. MEDICATIONS: Fentanyl and Versed CATHETER: 8 Martin[place] Percuteneous Nephrostomy Tube TECHNIQUE/FINDINGS: The risks, benefits, and alternatives to the procedure and sedation were explained. The specific risks of infection and damage to the kidney were detailed and accepted. Written informed consent was obtained. The patient was placed prone on the angiography table and the left flank was prepped and draped in sterile fashion. Ultrasonographic evaluation of the left renal collecting system was carried out. Hardcopy images were stored to PACS. Lidocaine was injected at the access site. Under direct ultrasound guidance a middle and upper pole calyx were attempted to be accessed which were nondilated and ultimately was unsuccessful. At this time a 22-gauge Chiba needle was advanced into the lower pole of the kidney and stomach into the lower pole calyx renal stone. Contrast was injected with a small amount of air to delineate the collecting system and posterior calyces. The filling defect in the lower pole was noted consistent with the known calculus. Lidocaine was then injected slightly cephalad to the previous access site. A second 22-gauge Chiba needle was then advanced into the left posterior middle pole contrast injection confirmed location within the middle pole calyx. A 0.018-inch wire was placed, and the needle exchanged for a 6 Martiniqu[place] transitional dilator which was advanced into the mid ureter. The inner portion of the dilator and wire were removed and an Amplatz wire was advanced through the catheter into the mid ureter. The catheter was removed over the wire. An 8 Martiniquais nephrostomy tube was advanced over the wire and positioned using fluoroscopy. The Monroe loop was formed and locked in the renal pelvis. Contrast was injected to confirm location. The catheter was sutured with 2-0 Ethilon to the flank and attached to gravity drainage. The procedure was well tolerated, and the patient discharged to the recovery area in satisfactory condition.. IMPRESSION Successful placement of left percutaneous nephrostomy tube with access to the mid pole. I, Shawn Hall M.D, the attending radiologist, was present for the critical and campo portions of the procedure with a midlevel, resident, and/or fellow participating. Overlapping portions were non campo and I was immediately available. I interpret the critical and campo portion of this procedure. @TT Approved by Martin Llanes M.D. on 04/28/2021 2:14 PM By my electronic signature, I attest that I have personally reviewed the images for this examination and formulated the interpretations and opinions expressed in this report Finalized by Shawn Hall M.D. on 04/28/2021 3:12 PM. Dictated by Martin Llanes M.D. on 04/28/2021 2:09 PM. Performing Organization Address City/State/ZIP Code P dg Number [facility] * TELEMETRY STRIPS-SCAN (04/28/2021 12:00 AM CIRCULAR CLERK) Narrative 04/28/2021 12:00 AM CIRCULAR CLERK Ordered by an unspecified provider. * TELEMETRY STRIPS-SCAN (04/28/2021 12:00 AM CIRCULAR CLERK) Narrative 04/28/2021 12:00 AM CIRCULAR CLERK Ordered by an unspecified provider. 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 07/12/2021 10:42 PM Full Code 07/12/2021 4:38 PM Provider has discussed Code Status No, more discussi on w/Patient or Family? needed 04/30/2021 2:15 PM Full Code 04/28/2021 11:42 AM Provider has discussed Code Status No, discussion no t w/Patient or Family? necessary based on Dx 04/28/2021 11:42 AM Full Code 04/28/2021 11:37 AM Provider has discussed Code Status Yes w/Patient or Family? 04/28/2021 11:37 AM Full Code 04/28/2021 10:54 AM Provider has discussed Code Status No, discussion no t w/Patient or Family? 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
--- NOTE | 2021-07-20 15:42 | Occupational Therapy Eval ---
OT Evaluation-General/PLF Medical Diagnosis Admission Date Medical Diagnosis: CVA Onset Date: Aug 13, 2021 Therapy Diagnosis Therapy Diagnosis: decreased ADL status. Referral Physician: Lillian Referral Reason: Evaluation/Treatment Medical History Additional Medical History tumor excision, kidney stone surgery, bladder cancer 03/2020 s/p TURP, cystectomy/prostatectomy with ileal conduit 05/2020 Current History metastatic bladder cancer with invasion into rectum with colonic obstruction. exp lap 07/12 with colostomy, stroke activation 07/13 for vision changes and R side weakness. Imaging revealed CVA. Social History Home: Single Level Current Living Status: Spouse Entry Into Home: Stairs Without Railing Steps Into Home: 4 Family indicates the hallways are narrow. ADL-Prior Level of Function SCALE: Activities may be completed with or without assistive devices. 3-Sghjfyzcqm-rufzrkv completes the activity by him/herself with no assistance from a helper. 5-Set-up or Clean-up Assistance-helper sets up or cleans up; patient completes activity. [place] assists only prior to or following the activity. 4-Supervision or Touching Assistance-helper provides verbal cues and/or touching/steadying and/or contact guard assistance as patient completes activity. Assistance may be provided throughout the activity or intermittently. 3-Partial/Moderate Assistance-helper does LESS THAN HALF the effort. [place] lifts, holds or supports trunk or limbs, but provides less than half the effort. 2-Substantial/Maximal Assistance-helper does MORE THAN HALF the effort. [place] lifts or holds trunk or limbs and provides more than half the effort. 5-Hqjwxpnlw-yfiyeq does ALL the effort. Patient does none of the effort to complete the activity. Or, the assistance of 2 or more helpers is required for the patient to complete the activity. If activity was not attempted, code reason: 7-Patient Refused. 9-Not Applicable-not attempted and the patient did not perform the activity before the current illness, exacerbation or injury. 10-Not Attempted due to Environmental Limitations-(lack of equipment, weather restraints, etc.). 88-Not Attempted due to Medical Conditions or Safety Concerns. ADL PLOF Comments Pt IND with ADLs and functional mobility at PLOF, no AD/AE. He has a small walk in shower (3', unable to hold a SC). Another bathroom has a tub/shower, family able to obtain a tub transfer bench. Self Care: Independent Functional Cognition: Independent DME/Equipment: Shower, Tub/Shower OT Current Status Subjective Pt agreeable to OT tx, upon arrival to ARU, incision was bleeding, nurse present to assess incision. Mental Status/Objective Patient Orientation: Person, Confused Attachments: Colostomy/Ileostomy, Other-See Comments (urostomy) Current Upper Extremity ROM WFL, BUE shoulder flexion to approx 150. Upper Extremity Coordination Decreased R hand coordination. Upper Extremity Sensation WFL, pt reports he is able to feel light touch. When questioned, he states his R arm is "little tingly" Upper Extremity Strength RUE grossly 3+/5, LUE grossly 4/5. ADL-Treatment Eating (QC): 7 Oral Hygiene (QC): 7 Shower/Bathe Self (QC): 7 Upper Body Dressing (QC): 3 (Min A with threading RUE into shirt, assist down his back. ) Lower Body Dressing (QC): 2 (Max A with threading BLEs into pants, assist with pant hike.) On/Off Footwear (QC): 7 Toileting Hygiene (QC): 1 (total assist changing ostomy bags) Other Treatments Pt arrived to ARU via transport. Pt transferred from w/c to recliner, then recliner to bed. Pt and his family provided information about PLOF and home set up, and pt participated in UE screen. OT/PT cotreat due to skill of 2 clinicians reuqired which a rehabilitation aide/scheduler could not perform in order to coordinate UE/LEs, decrease fall risk, and due to pt's limitations in vision, strength, activity tolerance, mobility/transfers, and cues for sequencing/safety. OT focused on UE placement, cues for sequencing and ADLs, PT focused on LE placement, mobility and transfers. Pt's abdominal incision bleeding upon arrival, pt nurse present to clean up incision and change colostomy and urostomy bags. Pt transferred supine to sit EOB, then donned clothes. Pt had decreased coordination in RUE, having difficulty holding pants open, this could also be due to decreased vision in R field. Pt then used FWW to go to car transfer simulation, completing transfer, then up step, and over uneven surface. Pt required assistance guiding walker in order to locate obstacles. Pt sat on therapy mat in gym. OT tx focused on visual scanning into R field. Pt completed x3 rounds of visual scanning into R field in order to locate rings with RUE, then crossed midline to place ring on L side. Pt required frequent cues to turn head in order to scan into R field, once pt turned his head his accuracy of locating the rings increased. Pt attempted to place 1" pegs into pegboard, difficulty locating holes. OT then placed pegs into pegboard, encouraged pt to locate pegs, remove the pegs and place in bin on R side. Pt required max verbal cues for sequencing and visual scanning, only able to complete a few pegs. Pt completed ring arc, locating rings on L side and crossing midline to the R, pt required cues to visually track rings. Pt completed ring arc from R to L side, increased difficulty locating rings. Pt performed functional mobility back to his room, transferring to recliner. Post tx, pt in recliner, call light in reach and all needs met, chair alarm activated. Max cues for sequencing and visual scanning throughout tx. Rolling and supine <- > sit independent, CGA sit to stnad, min A transfers. Pt requires a lot of assistance with guiding walker and verbal and tactile cues for direction. Education OT Patient Education: Correct positioning, Energy conservation, Modified ADL techniques, Progress toward Goal/Update tx plan, Purpose of tx/functional activities, Rehab process Teaching Recipient: Patient Teaching Methods: Discussion Response to Teaching: Reinforcement Needed OT Short Term Goals Short Term Goals Time Frame: Aug 04, 2021 Toileting hygiene: 3 Shower/bathe self: 3 Lower body dressin OT Retirement Goals Hazmat Cdl Driver Goals Time Frame: Aug 20, 2021 Eating (QC): 5 Oral Hygiene (QC): 5 Toileting Hygiene (QC): 4 Shower/Bathe Self (QC): 4 Upper Body Dressing (QC): 5 Lower Body Dressing (QC): 4 On/Off Footwear (QC): 4 Additional Goals: 1-Demonstrate ADL Tasks, 2-Verbalize Understanding, 3- ImproveStrength/Stella 1=Demonstrate adherence to instructed precautions during ADL tasks. 2=Patient will verbalize/demonstrate understanding of assistive devices/modifications for ADL. 3=Patient will improve strength/tolerance for activity to enable patient to perform ADL's. OT Education/Plan Problem List/Assessment Assessment: Decreased Activ Tolerance, Decreased Safety Aware, Decreased UE Strength, Impaired Cognition, Impaired Coordination, Impaired Funct Balance, Impaired I ADL's, Impaired Self-Care Skills, Visual-Perceptual Deficit Discharge Recommendations Plan/Recommendations: Continue POC Treatment Plan/Plan of Care Patient would benefit from OT for education, treatment and training to promote independence in ADL's, mobility, safety and/or upper extremity function for ADL's. Plan of Care: ADL Retraining, Functional Mobility, Group Exercise/Act as Ind, UE Funct Exercise/Act Treatment Duration: Aug 20, 2021 Frequency: At least 5 of 7 days/Wk (IRF) Estimated Hrs Per Day: 1.5 hours per day Agreement: Yes Rehab Potential: Fair Time/GCodes Start Time: 14:40 Stop Time: 16:20 Total Time Billed (hr/min): 90 Billed Treatment Time 7187-5779 OT eval, 6429-2919 PT eval (not billed), [id number] Cotreat. 1, EVM (10'), ADL 3 (45'), FA 2 (35') PETR SAINI OT Jul 20, 2021 15:42
--- OUTSIDE RECORDS SUMMARY | 2021-07-20 15:42 | XMS REPORT | Encounter Summary ---
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. [place], [place] Oncology Referral ID Status Reason Start Date Expiration Visits Vi sits Date Requested Authorized [id number] New Request 07/20/2021 07/20/2022 1 1 PMENT SERVICE TECHNICIAN Reason for Visit * Auth/Cert Diagnoses / Procedures Referred By Contact [facility] Malignant neoplasm of urinary bladder, unspecified site (HCC) Malignant neoplasm of urinary bladder, unspecified site (HCC) [C67.9] Procedures CA COLOSTOMY/SKIN LEVEL CECOSTOMY COLOSTOMY/ SKIN LEVEL CECOSTOMY Referral ID Status Reason Start Date Expiration Visits Vi sits Date Requested Authorized [id number] 1 1 Encounter Details Care Team Description Date Type Department Maurice Cao DO [address] [employer] [place], [place] Colon obstruction (HCC) 07/12/2021 Hospital Oncology: [facility] - Encounter A 07/20/2021 [address] [facility] [address] [place] [address] Social History Date Tobacco Use Types Packs/Day Years Used Never Smoker Smokeless Tobacco: Never Used Comments Alcohol Use Standard Drinks/Week Not Currently 0 (1 standard drink = 0.6 o z pure alcohol) Sex Assigned at Date Recorded Male 05/18/2020 12:22 PM EQUIPMENT SERVICE TECHNICIAN Date Recorded COVID-19 Exposure Response 07/12/2021 11:38 AM EQUIPMENT SERVICE TECHNICIAN In the last month, have you been in contact with No / Unsure someone who was confirmed or suspected to have Coronavirus / COVID-19? documented as of this encounter Last Filed Vital Signs Reading Time Taken Comments Vital Sign 128/79 07/20/2021 11:44 AM EQUIPMENT SERVICE TECHNICIAN Blood Pressure 80 07/20/2021 11:44 AM EQUIPMENT SERVICE TECHNICIAN Pulse 36.5 C (97.7 F) 07/20/2021 11:44 AM EQUIPMENT SERVICE TECHNICIAN Temperature - - Respiratory Rate 93% 07/20/2021 11:44 AM EQUIPMENT SERVICE TECHNICIAN Oxygen Saturation - - Inhaled Oxygen Concentration 64.8 kg (142 lb 13.7 oz) 07/15/2021 9:04 AM EQUIPMENT SERVICE TECHNICIAN Weight 172.7 cm (5' 8") 07/15/2021 9:04 AM EQUIPMENT SERVICE TECHNICIAN Height 21.72 07/15/2021 9:04 AM EQUIPMENT SERVICE TECHNICIAN Body Mass Index documented in this encounter Functional Status Date of Assessment Functional Status Response 07/12/2021 Does the patient have a hearing impairment: No 04/30/2021 Does the patient have a visual impairment: Yes 04/30/2021 Does the patient have impaired ambulation: No 04/30/2021 Does the patient have an activity of daily living No (ADL) impairment: 04/30/2021 Does the patient have an instrumental activity of No daily living (IADL) impairment: Date of Assessment Cognitive Status Response 04/30/2021 Does the patient have a cognitive impairment: No documented as of this encounter Discharge Summaries * Chemo Ely - 07/20/2021 12:22 PM EQUIPMENT SERVICE TECHNICIAN Case Management Progress Note NAME:Chemo Jenkins DO B:1950 AGE: 71 y.o. ADMISSION DATE: 07/12/2021 DAYS ADMITTED: LOS: 8 days Todays Date: 07/20/2021 Plan Patient will DC to [facility] Interventions Support Info or Referral SW submitted referral for outpatient palliative care follow up at [facility] Discharge Planning Medication Needs Financial Legal Other Disposition Expected Discharge Date 07/20/2021 12:00 PM Transportation Does the Patient Need Case Management to Arrange Discharge Transport? (ex: faci lity, ambulance, wheelchair/stretcher, Medicaid, cab, other): No Will the Patient Use Family Transport?: Yes Transportation Name, Phone and Availability #1: spouse Next Level of Care (Acute Psych discharges only) Discharge Disposition Selected Continued Care - Discharged on 07/20/2021 Admission date: 07/12/2021 - Dis charge disposition: Rehab Facility (Not [facility]) Destination Coordination complete. Service Provider Selected Services Address Phone Fax Patient Preferred [facility] Inpatient Rehabilitation [address] [place] [address] [phone] Chemo Ely LMSW Voalte Pager: [phone] Office: [phone] PMENT SERVICE TECHNICIAN * Isamar Mart LMSW - 07/20/2021 10:44 AM EQUIPMENT SERVICE TECHNICIAN Case Management Progress Note NAME:Chemo Jenkins DO B:1950 AGE: 71 y.o. ADMISSION DATE: 07/12/2021 DAYS ADMITTED: LOS: 8 days Todays Date: 07/20/2021 Plan D/C [facility] via Assisted Transportation at 12pm . Interventions Support Info or Referral Discharge Planning BRITANY updated by team that the pt is medically stable to d/c today. Pt has been accepted by [facility]. They have bed availabilit y today, however the pt would have to leave here by 12pm to be at their facility by 3pm. SW received call from Dennis at [facility] - no bed availability this week, possibly next week. SW contacted the pt's , Dorie. Discussed that [facility] could mike e the pt today. Dorie is in agreement with the pt discharging to [facility] if transport can be arranged. [facility] tasked [employer] to check on transportation to [facility]. Transportation secured 12pm with [facility] for $665. Family does not have the fi nances to cover transport. Management has agreed to pay for transportation for the patient. Team placed d/c orders. SWCM reached out to pt's and discussed d/c plan for 12pm via WC transpo rt. SW updated bedside nurse with d/c plan - nurse report [phone]. [facility] delivered transfer packet. [facility] faxed d/c orders to [facility] and notified them of transport being set for 12pm. Medication Needs Financial Legal Other Disposition Expected Discharge Date 07/20/2021 12:00 PM Transportation Does the Patient Need Case Management to Arrange Discharge Transport? (ex: faci lity, ambulance, wheelchair/stretcher, Medicaid, cab, other): No Will the Patient Use Family Transport?: Yes Transportation Name, Phone and Availability #1: spouse Next Level of Care (Acute Psych discharges only) Discharge Disposition Selected Continued Care - Admitted Since 07/12/2021 [facility] Destination Coordination complete. Service Provider Selected Services Address Phone Fax Patient Preferred [facility] Inpatient Rehabilitation [address] [facility] [address] [phone] Isamar Mart LMSW Voalte - [phone] PMENT SERVICE TECHNICIAN * Miguelina Li - 07/20/2021 10:43 AM EQUIPMENT SERVICE TECHNICIAN Patient Transportation Quote Request Received request from BRITANY Juarez to check WC transport quotes - 1 liter of 02 to [facility] [address] [place], [place]: Assisted [facility]: [phone]: $665 Available 12PM TODAY. SCHEDULED. [facility] [phone]: $670 [employer] 913- $ waiitng on quote Unavailable today [employer] [phone]: $416.98 Unavailable today [employer] [phone]: $ No availability. Miguelina Li Environmental Program Manager For further assistance please contact [facility] *[phone] PMENT SERVICE TECHNICIAN * April Calderón RN - 07/19/2021 9:27 AM EQUIPMENT SERVICE TECHNICIAN 0915: Per chart review, VSS with intermittent elevated B/P. O2 @ 1L/NC; IV zofra n will need to be switched to PO at discharge. Per Isamar (FAITH), team working on in creasing patient PO tolerance. Patient needs to work with OT; otherwise medical ly stable. 09: Notified Isamar () re: chart review. Admissions liaison to follow up per u pdates and bed availability. ELEN Wahl, RN Inpatient Rehab Admission Nurse (office: [phone] or voalte: [phone]) ELEN Levine, RN PMENT SERVICE TECHNICIAN * Siria Renteria - 07/16/2021 1:07 PM EQUIPMENT SERVICE TECHNICIAN Case Management Progress Note NAME:Chemo Jenkins DO B:1950 AGE: 71 y.o. ADMISSION DATE: 07/12/2021 DAYS ADMITTED: LOS: 4 days Todays Date: 07/16/2021 Plan [facility] updated [facility] P: [phone] on plans for pt to go IPR this weekend o r monday Interventions Support Info or Referral Discharge Planning Medication Needs Financial Legal Other Disposition Expected Discharge Date 07/19/2021 12:00 PM Transportation Does the Patient Need Case Management to Arrange Discharge Transport? (ex: faci lity, ambulance, wheelchair/stretcher, Medicaid, cab, other): No Will the Patient Use Family Transport?: Yes Transportation Name, Phone and Availability #1: spouse Next Level of Care (Acute Psych discharges only) Discharge Disposition Selected Continued Care - Admitted Since 07/12/2021 No services have been selected for the patient. Stacey Renteria RN Nurse Stiff Straw Hat Washer Available on Voalte [phone] Office hours [phone] M-F PMENT SERVICE TECHNICIAN * April Calderón, ERNST - 07/16/2021 10:55 AM EQUIPMENT SERVICE TECHNICIAN 1033: Notified by Isamar CORONADO) that the patient is anticipated to be ready for disc harge possibly Monday and would prefer to stay at 's IP rehab unit as patient' s first choice is unlikely to have a bed. Per FAITH, patient will have good family support at discharge. Will add for medical review and follow up re: bed availabi lity. 1547: Per chart review, VSS; O2 @ 1L. Per Neuro note, Palliative team consulted for goal of care discussion. Otherwise appears medically stable. Admissions team to follow up Monday re: bed availability. 1550: Notified Isamar (FAITH) re: chart review. Admissions team will plan to medicall y review and follow up Monday re: bed availability. ELEN Wahl, RN Inpatient Rehab Admission Nurse (office: [phone] or voalte: [phone]) ELEN Levine, RN PMENT SERVICE TECHNICIAN * Isamar Mart LMSW - 07/16/2021 10:33 AM EQUIPMENT SERVICE TECHNICIAN Case Management Progress Note NAME:Chemo Jenkins DO B:1950 AGE: 71 y.o. ADMISSION DATE: 07/12/2021 DAYS ADMITTED: LOS: 4 days Todays Date: 07/16/2021 Plan D/C planning ongoing - IPR Pending: [facility] - likely no bed until late next week [facility] Interventions Support Info or Referral Discharge Planning [facility] updated by team. Potential d/c dates of 07-19-21. [facility] called [facility] - will likely not have a bed until late next week, if pt qualifies SW called the pt's spouse, Dorie. She reported that she would like to cons ider IPR if they can accept him as she would have to drive to other facilitie s anyway and would like to stay in the [facility]. [facility] notified [facility] of the referral. Medication Needs Financial Legal Other Disposition Expected Discharge Date 07/19/2021 12:00 PM Transportation Does the Patient Need Case Management to Arrange Discharge Transport? (ex: faci lity, ambulance, wheelchair/stretcher, Medicaid, cab, other): No Will the Patient Use Family Transport?: Yes Transportation Name, Phone and Availability #1: spouse Next Level of Care (Acute Psych discharges only) Discharge Disposition Selected Continued Care - Admitted Since 07/12/2021 No services have been selected for the patient. Isamar Mart MANAGER OF CONSTRUCTION Voalte - [phone] PMENT SERVICE TECHNICIAN * Isamar Mart LMSW - 07/15/2021 11:23 AM EQUIPMENT SERVICE TECHNICIAN Case Management Progress Note NAME:Chemo Jenkins DO B:1950 AGE: 71 y.o. ADMISSION DATE: 07/12/2021 DAYS ADMITTED: LOS: 3 days Todays Date: 07/15/2021 Plan D/C plan ongoing - Interventions Support Info or Referral Discharge Planning [facility] updated by team. Pt to be here a few more days. Will likely need rehab . [facility] met with pt and his at bedside. Discussed that rehab consult would be completed. Provided pt and his a list of IPR facilities to review. Pt and family w ould be interested in [facility] in [place], [place] as it is close to their home. [facility] reviewed EMR - Rehab Med recommends IPR. [facility] sent referral to [facility] per family request. Medication Needs Financial Legal Other Disposition Expected Discharge Date 07/17/2021 12:00 PM Transportation Does the Patient Need Case Management to Arrange Discharge Transport? (ex: faci lity, ambulance, wheelchair/stretcher, Medicaid, cab, other): No Will the Patient Use Family Transport?: Yes Transportation Name, Phone and Availability #1: spouse Next Level of Care (Acute Psych discharges only) Discharge Disposition Selected Continued Care - Admitted Since 07/12/2021 No services have been selected for the patient. Isamar Mart MANAGER OF CONSTRUCTION Voctte - [phone] PMENT SERVICE TECHNICIAN * Isamar Mart LMSW - 07/13/2021 3:27 PM EQUIPMENT SERVICE TECHNICIAN Case Management Progress Note NAME:Chemo Jenkins DO B:1950 AGE: 71 y.o. ADMISSION DATE: 07/12/2021 DAYS ADMITTED: LOS: 1 day Todays Date: 07/13/2021 Plan D/C planning ongoing Interventions Support Info or Referral Discharge Planning BRITANY attended team huddle. HEIKE 07-17-21 BRITANY reviewed EMR - PT/OT recs for inpatient at this time. BRITANY met with pt and his spouse Dorie. Discussed inpatient recs and provided list of Medicare SNF facilities for the pt and family to have to review. FAITH will con't to follow for d/c planning needs as they arise. Medication Needs Financial Legal Other Disposition Expected Discharge Date 07/14/2021 12:00 PM Transportation Does the Patient Need Case Management to Arrange Discharge Transport? (ex: faci lity, ambulance, wheelchair/stretcher, Medicaid, cab, other): No Will the Patient Use Family Transport?: Yes Transportation Name, Phone and Availability #1: spouse Next Level of Care (Acute Psych discharges only) Discharge Disposition Selected Continued Care - Admitted Since 07/12/2021 No services have been selected for the patient. Isamar Mart LMSW Voctte - [phone] PMENT SERVICE TECHNICIAN * Siria Renteria - 07/13/2021 12:32 PM EQUIPMENT SERVICE TECHNICIAN Case Management Admission Assessment NAME:Chemo Jenkins :1950 AGE: 71 y.o. ADMISSION DATE: 07/12/2021 DAYS ADMITTED: LOS: 1 day Todays Date: 07/13/2021 Source of Information: patient/ Plan Plan: Case Management Assessment NCM disussing dc planning and dispo for pt with new ostomy post dc Pt had [facility] [place], [place]. P:[phone] Fax: [phone] F: [phone] -ACCEPTED Pt saw PCP on file in Jun 08 Pt owns no DME Pt denies having been to any sub acute facilities post hospital dc in past to transport home when medically stable Dc dispo ongoing Patient Address/Phone [address] [place] [address] (home) Emergency Contact Extended Emergency Contact Information Primary Emergency Contact: Dorie Jenkins Mobile Relation: Spouse Healthcare Directive Healthcare Directive: No, patient does not have a healthcare directive Would patient like to fill out a (a new) Healthcare Directive?: No, patient decl ined Psych Advance Directive (Psych unit only): No, patient does not have a Psych Adv ance Directive Transportation Does the Patient Need Case Management to Arrange Discharge Transport? (ex: facil ity, ambulance, wheelchair/stretcher, Medicaid, cab, other): No Will the Patient Use Family Transport?: Yes Transportation Name, Phone and Availability #1: spouse Expected Discharge Date 07/14/2021 12:00 PM Living Situation Prior to Admission Living Arrangements Type of Residence: Home, independent Living Arrangements: Spouse/significant other Bathroom Shower / Tub: Walk-in Shower How many levels in the residence?: 1 Can patient live on one level if needed?: Yes Does residence have entry and/or side stairs?: Yes (3-4) Assistance needed prior to admit or anticipated on discharge: Yes Who provides assistance or could if needed?: spouse Are they in good health?: Yes Can support system provide 24/7 care if needed?: Maybe Level of Function Prior level of function: Independent Cognitive Abilities Cognitive Abilities: Alert and Oriented Financial Resources Coverage Primary Insurance: Medicare Source of Income Source Of Income: SSI Financial Assistance Needed? na Psychosocial Needs Mental Health Substance Use History Other na Current/Previous Services PCP Angelo Gordon, , [id number] - [place] [address] [place] [address] [facility] [id number] [place] [address] [place] [address] Durable Medical Equipment Durable Medical Equipment at home: None Home Health Receiving home health: In the past Agency name: [facility] Would patient use this agency again?: Yes Hemodialysis or Peritoneal Dialysis Undergoing hemodialysis or peritoneal dialysis: No Tube/Enteral Feeds Receive tube/enteral feeds: No Infusion Receive infusions: No Private Duty Private duty help used: No Home and Community Based Services Home and community based services: No [facility] Hospice: No Outpatient Therapy Halfway Facility/Long Term SNF: No NH: No Inpatient Rehab IPR: No Long-Term Acute Care Hospital LTACH: No Acute Hospital Stay Stacey Renteria RN Nurse Stiff Straw Hat Washer Available on Voctte [phone] Office hours 8-4 M-F PMENT SERVICE TECHNICIAN documented in this encounter Medications at Time of Discharge Start Date End Date Medication Sig Dispensed Refills 07/20/2021 acetaminophen (TYLENOL) Take three 40 tablet 0 325 mg tablet tablets by mouth every 8 hours as needed for Pain. aspirin EC 81 mg tablet Take 81 mg by 0 mouth at bedtime daily. Take with food. 02/20/2020 atenoloL (TENORMIN) 50 mg Take 50 mg by 0 tablet mouth every morning. 07/21/2021 atorvastatin (LIPITOR) 40 Take one 90 tablet 3 mg tablet tablet by mouth daily. 04/03/2020 brimonidine (ALPHAGAN) INSTILL 1 0 0.2 % ophthalmic solution DROP INTO RIGHT EYE TWICE DAILY cetirizine (ZYRTEC) 10 mg Take 5 mg by 0 tablet mouth daily as needed. 06/29/2021 dexAMETHasone (DECADRON) Take two 30 tablet 0 4 mg tabletIndications: tablets by Malignant neoplasm of mouth daily. overlapping sites of On Days 2-4 bladder (HCC) of each cycle. 06/22/2021 dicyclomine (BENTYL) 10 0 mg capsule 04/27/2020 dorzolamide-timoloL INSTILL 1 0 (COSOPT) 2-0.5 % DROP INTO ophthalmic solution RIGHT EYE TWICE DAILY famotidine (PEPCID) 20 mg Take 20 mg by 0 tablet mouth twice daily as needed. fish oil /omega-3 fatty Take 1 0 acids (SEA-OMEGA) capsule by 340/1000 mg capsule mouth daily. 06/24/2021 ketorolac (ACULAR) 0.5 % 0 ophthalmic solution 04/29/2020 latanoprost (XALATAN) INSTILL 1 0 0.005 % ophthalmic DROP INTO solution RIGHT EYE AT BEDTIME 06/08/2020 Miscellaneous Medical Urostomy 20 each Supply [facility] [place] [facility] Dispense one month of supplies Dx Bladder Cancer C67.9 06/29/2021 ondansetron HCL (ZOFRAN) Take one 30 tablet 0 8 mg tabletIndications: tablet by Malignant neoplasm of mouth every 8 overlapping sites of hours as bladder (HCC) needed (nausea and vomiting). 04/30/2021 polyethylene glycol 3350 Take one 12 each 1 (MIRALAX) 17 g packet packet by mouth daily as needed. prednisoLONE (PRELONE) 15 0 mg/5 mL oral syrup 04/28/2020 RHOPRESSA 0.02 % drop INSTILL 1 0 INTO RIGHT EYE AT BEDTIME 04/30/2021 senna/docusate Take one 90 tablet 0 (SENOKOT-S) 8.6/50 mg tablet by tablet mouth daily as needed. 07/20/2021 traMADoL (ULTRAM) 50 mg Take one 20 tablet 0 tablet tablet by mouth every 8 hours as needed for Pain. Vit A,C,D-Rhxf-Iqaril Take 2 0 (PRESERVISION AREDS) capsules by 14,320-226-200 mouth daily. cyzi-ju-bqce cap documented as of this encounter Ordered Prescriptions Start Date End Date Prescription Sig Dispensed Refills 07/20/2021 traMADoL (ULTRAM) 50 mg Take one 20 tablet 0 tablet tablet by mouth every 8 hours as needed for Pain. 07/21/2021 atorvastatin (LIPITOR) 40 Take one 90 tablet 3 mg tablet tablet by mouth daily. 07/20/2021 acetaminophen (TYLENOL) Take three 40 tablet 0 325 mg tablet tablets by mouth every 8 hours as needed for Pain. 07/20/2021 07/20/2021 traMADoL (ULTRAM) 50 mg Take one 20 tablet 0 tablet tablet by mouth every 8 hours as needed for Pain. 07/20/2021 07/20/2021 acetaminophen (TYLENOL) Take three 40 tablet 0 325 mg tablet tablets by mouth every 8 hours as needed for Pain. 07/21/2021 07/20/2021 atorvastatin (LIPITOR) 40 Take one 90 tablet 3 mg tablet tablet by mouth daily. documented in this encounter Discharge Disposition Code Departure Means Destination Disposition Wheelchair Rehab Facility (Not [facility]) documented in this encounter Progress Notes * Dena Cotton RN - 07/20/2021 12:22 PM EQUIPMENT SERVICE TECHNICIAN Patient discharged via medical transport to [facility] in rehab. PIV removed. Packet se nt with family. No questions at this time. PMENT SERVICE TECHNICIAN * Judy Fitzgerald, ANIVAL - 07/20/2021 10:56 AM EQUIPMENT SERVICE TECHNICIAN OCCUPATIONAL THERAPY PROGRESS NOTE Name: Chemo Jenkins : 1950 Age: 71 y.o. 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 Precautions: Falls (colstomy/urostomy) Pain / Complaints: Patient agrees to participate in therapy;Unable to rate Objective Psychosocial Status: Willing and Cooperative to Participate Persons Present: Spouse;Son Home Living Type of Home: House Home Layout: One Level;Stairs to Enter w/o Rails (2-3 LETY) Bathroom Shower / Tub: Walk-in Shower Bathroom Toilet: Standard Home Equipment: Walker Prior Function Level Of [place]: Independent with ADLs and functional transfers;Independen t with homemaking w/ ambulation Lives With: Spouse Receives Help From: None Needed Other Function Comments: Patient poor historian, spouse provides subjective info rmation. Spouse reports patient independent without AD prior to surgery. Vision Current Vision: Wears Glasses All of the Time Visual History: Macular Degeneration Visual Screen Results: (R field cut) Comment: Pt reports vision is blurrier than normal. Does not like wearing glasse s. R visual field cut. Hand/eye coordination deficit. ADL's LE Dressing Assist: Moderate Assist LE Dressing Deficits: Increased Time To Complete;Verbal Cueing;Supervision/Safet y;Steadying;Don/Doff R Sock;Don/Doff L Sock ADL Mobility Bed Mobility: Supine to Sit: Minimal assist Transfer Type: Sit to stand Transfer: Assistance Level: Moderate assist;From;Bed;Bedside chair;Minimal edith t Transfer: Assistive Device: Roller walker End of Activity Status: Up in chair;Instructed patient to request assist with mo bility;Instructed patient to use call light;Nursing notified Transfer Comments: Maximal cueing for preparing for sit>stand, motor planning difficulties. Standing Balance: Minimal assist Gait Distance: 200 feet (+100) Gait: Assistance Level: Moderate assist;of 1st person;Safety considerations;of 2 nd person (pt's son provides chair follow) Gait: Assistive Device: Roller walker Gait Comments: Pt zig zags in hallway throughout--hitting obstacles on R despite cues and then veering to L. Frequent cues to keep RW close to body-- pt sometim es hold RW too far to R side and sometimes will catch feet on RW. Activity Tolerance Endurance: 3/5 Tolerates 25-30 Minutes Exercise w/Multiple Rests Cognition Overall Cognitive Status: Confused Expression: Increased Time for Expression;Expressive Aphasia Social Interaction: Increased Time to Adjust Problem Solving: Cueing to Sequence Task;Decreased Judgment/Safety;Direction Fol lowing Assist Memory: Unable to Recall Daily Events;Unable to Provide Accurate Prior Level of Functioning History Orientation: To Person Cognition Comment: Pt presents with motor planning and sequencing deficits throu ghout. UE AROM Coordination: Moderate Delay Grasp: R Weakened Comment: Pt favoring L hand, despite being R hand dominant. Upon exam BUE appear equal despite R hand being slightly weaker, which RN says is his baseline. Assessment Assessment: Decreased ADL Status;Decreased Cognition;Decreased Safe/Judg during ADL;Decreased Endurance;Decreased Self-Care Trans;Decreased High-Level ADLs;Decr eased Fine Motor Coordination;Visual Deficit Prognosis: Good;w/Cont OT s/p Acute Discharge Goal Formulation: Patient Comments: Patient presents with post operative pain as well as cognitive, visual , sensation, and strength deficits from stroke. Patient will benefit from contin ued therapy at time of d/c to address deficits. AM-PAC 6 Clicks Daily Activity Inpatient Putting on and taking off regular lower body clothes?: Total Bathing (Including washing, rinsing, drying): Total Toileting, which includes using toilet, bedpan, or urinal: Total Putting on and taking off regular upper body clothing: A Lot Taking care of personal grooming such as brushing teeth: A Lot Eating meals?: A Lot Daily Activity Raw Score: 9 Standardized (t-scale) score: 25.33 CMS 0-100% Score: 79.59 CMS G Code Modifier: CL Plan OT Frequency: 5x/week OT Plan for Next Visit: grooming tasks at sink; LE dressing; command following ADL Goals Patient Will Perform All ADL's: w/ Stand By Assist Functional Transfer Goals Pt Will Perform All Functional Transfers: w/ Stand By Assist OT Discharge Recommendations Recommendation: Inpatient setting Therapist: SUKUMAR Sweeney/Bhupinder [id number] Date: 07/20/2021 PMENT SERVICE TECHNICIAN * Dena Cotton RN - 07/20/2021 10:33 AM EQUIPMENT SERVICE TECHNICIAN 0850: During med pass and initial assessment, patient's and daughter kennedy amos patient was having some difficulty swallowing his food. Patient took pills o ev. 0930: Paged surg-onc team. Verbal to keep patient NPO and to place a speech ther apy consult for patient. Orders placed. Patient and family updated. 1118: Case management with Surg-onc texted and said patient will be DC to [facility] in [place] around 12 pm today. Patient and family updated. PMENT SERVICE TECHNICIAN * Dena Cotton RN - 07/20/2021 7:45 AM EQUIPMENT SERVICE TECHNICIAN Breakfast ordered for patient at this time. PMENT SERVICE TECHNICIAN * Yas Avelar MD - 07/19/2021 9:34 PM EQUIPMENT SERVICE TECHNICIAN PALLIATIVE CARE INPATIENT NOTE Name: Chemo Jenkins : 8 Age: 71 y.o. Admission Date: 07/12/2021 LOS: 7 days ASSESSMENT Chemo Jenkins is a 71 y.o. male with metastatic urothelial carcinoma s/ p radical cystectomy/prostatectomy in 2019, remote history of pAF who was admitt ed on 07/12/2021 for exploratory laparotomy and diverting loop ostomy due to symp toms from suspected proctitis. Patient underwent surgery on 07/12/21 with the fin ding of peritoneal metastasis and mesenteric tethering. Postoperatively complica tions include hypotension, acute strokes. Palliative care consulted to assist wi th support/goals of care. Advance Care Planning: Code Status: Full Code - not ready to discuss this currently Identified Health Care Decision Maker: Dorie () Potential Disposition: Too soon to determine, family hoping for rehab closer to home. PLAN #Metastatic Urothelial Cancer with peritoneal carcinomatosis - more widespread t hat thought prior to surgery. #Acute bilateral CVAs #Impaired mobility #Cognitive deficits s/p CVAs Discussion: We met with and son Ector outside of patient's room today. They feel that tor rodgers is making improvements and are very pleased with this. They are hoping to get him to rehab closer to home. RECOMMENDATIONS: Code status: Full Code Continue restorative treatments with hope that he will continue to get stron elizabeth. SUBJECTIVE CC/Reason for Visit: Follow up condition check, family support. Subjective: Patient sitting in chair during our visit. Reports feeling well today. Still wit h weakness and somewhat slowed mentation, however family feels that his is mckinley puga notable improvement. ROS: Denies pain or shortness of breath OBJECTIVE Blood pressure 129/79, pulse 66, temperature 36.7 C (98.1 F), height 172.7 c m (68"), weight 64.8 kg (142 lb 13.7 oz), SpO2 97 %. Constitutional: Appears stated age, resting in chair. Alert and interactive, in no acute distress HEENT: NC/AT, EOMI, non-icteric Lungs: No increased work of breathing Neuro: Face symmetric, no tremor or myoclonus. Generalized weakness appreciated. Skin: Warm/dry Psych: Calm Ext: No edema noted Current PPS%: 40% Lab Results: CBC Lab Results Component Value Date/Time WBC 9.1 07/16/2021 04:40 AM HGB 10.1 (L) 07/16/2021 04:40 AM PLTCT 109 (L) 07/16/2021 04:40 AM Lab Results Component Value Date/Time NEUT 85 (H) 07/09/2021 09:19 AM ANC 8.20 (H) 07/09/2021 09:19 AM Chemistries Lab Results Component Value Date/Time NA 137 07/19/2021 02:42 AM K 4.7 07/19/2021 02:42 AM BUN 26 (H) 07/19/2021 02:42 AM CR 0.96 07/19/2021 02:42 AM GLU 86 07/19/2021 02:42 AM Lab Results Component Value Date/Time CA 8.3 (L) 07/19/2021 02:42 AM PO4 3.4 07/19/2021 02:42 AM ALBUMIN 2.8 (L) 07/12/2021 09:15 PM TOTPROT 5.1 (L) 07/12/2021 09:15 PM ALKPHOS 55 07/12/2021 09:15 PM AST 23 07/12/2021 09:15 PM ALT 8 07/12/2021 09:15 PM TOTBILI 0.8 07/12/2021 09:15 PM GFR 50 (L) 04/30/2021 05:31 AM GFRAA >60 04/30/2021 05:31 AM Other Pertinent Diagnostic Results: NA Yas Avelar MD Palliative Care *[id number] Team pgr *[id number] Also on [employer] and [employer] PMENT SERVICE TECHNICIAN * Ana Rosenberg, RN - 07/19/2021 8:03 PM EQUIPMENT SERVICE TECHNICIAN Report to Lisa DUKES . Transferring patient to [place] 1130. PMENT SERVICE TECHNICIAN * Latoya Pastrana, PT - 07/19/2021 3:14 PM EQUIPMENT SERVICE TECHNICIAN PHYSICAL THERAPY PROGRESS NOTE Name: Chemo Jenkins : 1950 Age: 71 y.o. Admission Date: 07/12/2021 LOS: 7 days Mobility Patient Turn/Position: Chair Progressive Mobility Level: Walk in room Distance Walked (feet): 25 ft Level of Assistance: Assist X1 Assistive Device: Hand Held Activity Limited By: Mental Status Variability;Weakness Subjective Significant hospital events: 71M with metastatic bladder cancer s/p cystectomy a nd ileal conduit with peritoneal mets and distal obstruction s/p open loop sigmo id colostomy (07/12) Mental / Cognitive Status: Alert;Cooperative;Inconsistent with Command Following Persons Present: Family Pain: Patient has no complaint of pain Pain Interventions: Patient agrees to participate in therapy Ambulation Assist: Independent Mobility in Community with Endurance Limitations Patient Owned Equipment: None Home Situation: Lives with Family Type of Home: House Entry Stairs: 1-2 Stairs In-Home Stairs: No Stairs Bed Mobility/Transfer Bed Mobility: Supine to Sit: Moderate Assist;Assist with B LE;Assist with Trunk (requires hand over hand cueing) Transfer Type: Sit to/from Stand Transfer: Assistance Level: To/From;Bed;Minimal Assist Transfer: Assistive Device: Hand Hold Assist Transfers: Type Of Assistance: Verbal Cues;For Safety Considerations;For Balance ;For Strength Deficit (on R side) Other Transfer Type: Stand to Sit Other Transfer: Assistance Level: To;Bed Side Chair;Moderate Assist Other Transfer: Assistive Device: Hand Hold Assist Other Transfer: Type Of Assistance: Verbal Cues;For Balance;For Strength Deficit ;For Safety Considerations End Of Activity Status: Up in Chair;Nursing Notified;Instructed Patient to Reque st Assist with Mobility;Instructed Patient to Use Call Light Balance Sitting Balance: Static Sitting Balance;Dynamic Sitting Balance;2 UE Support;Mod erate Assist;Minimal Assist Standing Balance: Dynamic Standing Balance;2 UE support;Moderate Assist Gait Gait Distance: 25 feet Gait: Assistance Level: Moderate Assist;Minimal Assist Gait: Assistive Device: Hand Hold Assist Gait: Descriptors: Antalgic;Decreased foot clearance RLE;Decreased foot clearanc e LLE;Forward trunk flexion;Pace: Slow;Pathway deviations;Variable step length Comments: improved gait pattern with facilitation at trunk and hand held on R si de Activity Limited By: Weakness;Complaint of Fatigue Education Persons Educated: Patient Patient Barriers To Learning: Confusion;Cognitive Deficits;Pain Interventions: Repetition of Instructions;Family Education Teaching Methods: Verbal Instruction Patient Response: More Instruction Required Topics: Plan/Goals of PT Interventions;Use of Assistive Device/Orthosis;Mobility Progression;Up with Assist Only;Importance of Increasing Activity;Recommend Con tinued Therapy Comments: ed family on manual facilitation vs verbal cueing during session and p atient's understanding of cueing Assessment/Progress Impaired Mobility Due To: Decreased Strength;Impaired Balance;Cognitive Deficits ;Safety Concerns;Decreased Activity Tolerance;Post Surgical Changes Impaired Strength Due To: Medical Status Limitation Assessment/Progress: Should Improve w/ Continued PT AM-PAC 6 Clicks Basic Mobility Inpatient Turning from your back to your side while in a flat bed without using bed rails: A lot Moving from lying on your back to sitting on the side of a flatbed without using bedrails : A Lot Moving to and from a bed to a chair (including a wheelchair): A Lot Standing up from a chair using your arms (e.g. wheelchair, or bedside chair): A Lot To walk in hospital room: A Lot Climbing 3-5 steps with a railing: Total Raw Score: 11 Standardized (T-scale) Score: 30.25 Basic Mobility CMS 0-100%: 66.76 CMS G Code Modifier for Basic Mobility: CL AM-PAC Basic Mobility Functional Stage: -11.95-33 Limited Movement Functional Stages Basic Mobility Score Interpretation 11.95 - 33 Limited Movement: Your score suggests you may have a lot of difficult y or are unable to get out of your bed, to stand for several minutes and/or to w alk short distances. You might have some difficulty completing the most basic mobility tasks including repositioning yourself in bed. Goals Goal Formulation: With Patient/Family, Patient Unable to Participate in Goal Set ting Time For Goal Achievement: 5 days Patient Will Go Supine To/From Sit: Independently Patient Will Transfer Bed/Chair: Independently Patient Will Ambulate: Greater than 200 Feet, w/ Walker, w/ Stand By Assist Patient Will Go Up / Down Stairs: 1-2 Stairs, w/ Stand By Assist Plan Treatment Interventions: Mobility Training;Strengthening;Balance Activities;Endu jose Training Plan Frequency: 5 Days per Week PT Plan for Next Visit: increase ind with bed mob, transfers, gait and stairs PT Discharge Recommendations Recommendation: Inpatient setting Patient Currently Requires Equipment: Owns what is needed Therapist: Latoya Pastrana PT, DPT, [facility] Date: 07/19/2021 PMENT SERVICE TECHNICIAN * Yaritza La, OT - 07/19/2021 10:30 AM EQUIPMENT SERVICE TECHNICIAN OCCUPATIONAL THERAPY PROGRESS NOTE Name: Chemo Jenkins : 1950 Age: 71 y.o. Admission Date: 07/12/2021 LOS: 7 days Mobility Progressive Mobility Level: Walk in hallway Distance Walked (feet): 150 ft Level of Assistance: Assist X2 Assistive Device: Walker Activity Limited By: Mental Status Variability;Weakness Subjective Pertinent Dx per Physician: 71M with metastatic bladder cancer s/p cystectomy an d ileal conduit with peritoneal mets and distal obstruction s/p open loop sigmoi d colostomy (07/12). 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 Precautions: Falls (colstomy/urostomy) Pain / Complaints: Patient agrees to participate in therapy;Unable to rate Objective Psychosocial Status: Willing and Cooperative to Participate Persons Present: RehabTechnician;Daughter;Spouse Home Living Type of Home: House Home Layout: One Level;Stairs to Enter w/o Rails (2-3 LETY) Bathroom Shower / Tub: Walk-in Shower Bathroom Toilet: Standard Home Equipment: Walker Prior Function Level Of [place]: Independent with ADLs and functional transfers;Independen t with homemaking w/ ambulation Lives With: Spouse Receives Help From: None Needed Other Function Comments: Patient poor historian, spouse provides subjective info rmation. Spouse reports patient independent without AD prior to surgery. Vision Current Vision: Wears Glasses All of the Time Visual History: Macular Degeneration Comment: Pt reports vision is blurrier than normal. Does not like wearing glasse s. R visual field cut. Hand/eye coordination deficit. ADL's Where Assessed: Edge of Bed LE Dressing Assist: Maximum Assist LE Dressing Deficits: Thread RLE Into Underwear;Thread LLE Into Underwear;Pull U p Over Hips Comment: Pt given brief while EOB, unable to hold onto brief or process how to p ut on. Step by step sequencing cues needed throughout session. ADL Mobility Bed Mobility: Supine to Sit: Minimal assist Bed Mobility: Sit to Supine: Maximum assist;x2 people Transfer Type: Sit to stand Transfer: Assistance Level: Moderate assist;From;Bed Transfer: Assistive Device: Roller walker End of Activity Status: In bed;Instructed patient to request assist with mobilit y;Instructed patient to use call light;Nursing notified Sitting Balance: Standby assist Standing Balance: Minimal assist Gait Distance: 150 feet Gait: Assistance Level: Moderate assist;of 1st person;Minimal assist;of 2nd pers on Gait: Assistive Device: Roller walker Gait Comments: Pt needs assist guiding RW to prevent veering to the left and to avoid running into things on the right. Kicks right side of walker multiple time s without noticing. Activity Tolerance Endurance: 3/ Tolerates 25-30 Minutes Exercise w/Multiple Rests Cognition Overall Cognitive Status: Confused Expression: Increased Time for Expression;Expressive Aphasia Social Interaction: Increased Time to Adjust Problem Solving: Cueing to Sequence Task;Decreased Judgment/Safety;Direction Fol lowing Assist Memory: Unable to Recall Daily Events;Unable to Provide Accurate Prior Level of Functioning History Orientation: To Person Cognition Comment: Pt presents with motor planning and sequencing deficits durin g grooming tasks. UE AROM Overall BUE AROM WNL: Yes Coordination: Moderate Delay Grasp: R Weakened Sensory Overall Sensory: R UE Decreased/Impaired UE Strength / Tone Overall Strength / Tone: /5 Assessment Assessment: Decreased ADL Status;Decreased Cognition;Decreased Safe/Judg during ADL;Decreased Endurance;Decreased Self-Care Trans;Decreased High-Level ADLs;Decr eased Fine Motor Coordination;Visual Deficit Prognosis: Good;w/Cont OT s/p Acute Discharge Goal Formulation: Patient Comments: Patient presents with post operative pain as well as cognitive, visual , sensation, and strength deficits from stroke. Patient will benefit from contin ued therapy at time of d/c to address deficits. AM-PAC 6 Clicks Daily Activity Inpatient Putting on and taking off regular lower body clothes?: Total Bathing (Including washing, rinsing, drying): Total Toileting, which includes using toilet, bedpan, or urinal: Total Putting on and taking off regular upper body clothing: A Lot Taking care of personal grooming such as brushing teeth: A Lot Eating meals?: A Lot Daily Activity Raw Score: 9 Standardized (t-scale) score: 25.33 CMS 0-100% Score: 79.59 CMS G Code Modifier: CL Plan OT Frequency: 5x/week OT Plan for Next Visit: grooming tasks at sink; LE dressing; command following ADL Goals Patient Will Perform All ADL's: w/ Stand By Assist Functional Transfer Goals Pt Will Perform All Functional Transfers: w/ Stand By Assist OT Discharge Recommendations Recommendation: Inpatient setting Therapist: SUKUMAR Randall/Bhupinder [id number] Date: 07/19/2021 PMENT SERVICE TECHNICIAN * Liliana Choe MD - 07/18/2021 10:03 AM EQUIPMENT SERVICE TECHNICIAN Daily Progress Note Today's Date: 07/18/2021 Name: Chemo Jenkins Admission Date: 07/12/2021 (LOS: 6 days) Assessment: 71M with metastatic bladder cancer s/p cystectomy and ileal conduit with peritoneal mets and distal obstruction s/p open loop sigmoid colostomy (06/20 4) Principal Problem: Colon obstruction (HCC) Active Problems: ITA (acute kidney injury) (HCC) Acute ischemic stroke (HCC) Acute right hemiparesis (HCC) Homonymous hemianopia, right Hypovolemia Encephalopathy Moderate malnutrition (HCC) Acute ischemic left [employer]ATE stroke (HCC) Coagulopathy (HCC) Hypovolemic shock (HCC) NSTEMI, initial episode of care ([facility]) Plan: S/p open loop colostomy- ERAS, regular diet + boost shakes; ostomy team GERD - Famotidine, TUMS prn Hypotension, acute blood loss anemia- resolved Elevated cardiac enzymes, resolved- cardiology consult, no acute ischemia on EKG , echo with no ischemia, EF 70%, troponin plateaud Pain- multimodal pain control Possible small apical pneumothorax- bilateral breath sounds, hypotension resolve d, no O2 requirement Acute embolic stroke- Stroke team consulted, not a candidate for tpa; started on ASA 81mg and high intensity statin, A1C/lipid panel, carotid US with no evidenc e of flow limiting disease, neurology recommending ALIYA; we recommend that he powell s NOT undergo ALIYA given his stability and need for anesthesia with procedure. Ad ditionally our treatments will be limited regardless of the ALIYA results. Cardiol ogy agrees and will hold off on ALIYA for now. Palliative care consulted for goals of care. Lines/Drains- urostomy/colostomy PPX- SCDs, ambulating when hemodynamically safe with PT/OT, chemoppx Continue inpatient management, will need rehab on discharge Liliana Choe MD [id number] Subjective: ZOILA. Denies pain. No n/v. Tolerating full liquids, but reports some gastric refl ux overnight, improved with TUMS. Objective: BP: (148-158)/(87-97) Temp: [36.6 C (97.9 F)-37.3 C (99.2 F)] Pulse: [68-78] Respirations: [17 PER MINUTE-21 PER MINUTE] SpO2: [95 %-97 %] Lab Results Component Value Date/Time NA 133 (L) 07/17/2021 03:35 AM K 4.7 07/17/2021 03:35 AM CL 104 07/17/2021 03:35 AM CO2 24 07/17/2021 03:35 AM BUN 15 07/17/2021 03:35 AM CR 0.71 07/17/2021 03:35 AM MG 1.7 07/17/2021 03:35 AM PO4 2.0 07/17/2021 03:35 AM Lab Results Component Value Date/Time HGB 10.1 (L) 07/16/2021 04:40 AM HCT 29.9 (L) 07/16/2021 04:40 AM WBC 9.1 07/16/2021 04:40 AM PLTCT 109 (L) 07/16/2021 04:40 AM INR 1.1 03/31/2021 03:24 PM Lab Results Component Value Date/Time GLUPOC 118 (H) 07/14/2021 11:04 AM GLUPOC 116 (H) 07/12/2021 08:51 PM Physical Exam Constitutional: Appearance: He is normal weight. He is ill-appearing. HENT: Head: Normocephalic. Mouth/Throat: Mouth: Mucous membranes are moist. Eyes: General: No scleral icterus. Cardiovascular: Rate and Rhythm: Normal rate. Pulses: Normal pulses. Heart sounds: Normal heart sounds. Pulmonary: Effort: Pulmonary effort is normal. Abdominal: Comments: Midline incision CDI, RLQ urostomy in place with clear urine, LLQ c olostomy in place with stool and gas; soft, nondistended, nontender Musculoskeletal: General: Normal range of motion. Cervical back: Neck supple. Skin: General: Skin is warm and dry. Neurological: Mental Status: He is alert. Mental status is at baseline. Comments: Right upper and lower extremity weakness, visual defects in right e ye; orientation questions wax/wane Psychiatric: Mood and Affect: Mood normal. Behavior: Behavior normal. Thought Content: Thought content normal. Judgment: Judgment normal. Output by Drain (mL) 07/11/21 0701 - 07/11/21 1900 07/11/21 1901 - 07/12/21 0700 07/12/21 0701 - 07/12/21 1900 07/12/21 1901 - 07/13/21 0700 07/13/21 0701 - 0707 Colostomy 07/12/21 1354 Upper Left Quadrant 80 ICD-10 code E44: Chronic illness/Moderate non-severe malnutrition Mild loss of muscle mass, Energy intake: < 75% of estimated energy requirement for 1 month or more Loss of Subcutaneous Fat: No Muscle Wasting: Yes Moderate Rastafari, Clavicle, Deltoid (did not assess lower bod y) Edema: No Malnutrition Interventions: high-kcal high-protein shakes PMENT SERVICE TECHNICIAN Associated attestation - Angelo Danielle MD - 07/19/2021 10:44 AM EQUIPMENT SERVICE TECHNICIAN ATTESTATION I personally performed the campo portions of the E/M visit, discussed case with re sident and concur with resident documentation of history, physical exam, assessm ent, and treatment plan unless otherwise noted. Staff name: Angelo Danielle MD Date: 07/19/2021 * Benton Chopra, PT - 07/18/2021 9:40 AM EQUIPMENT SERVICE TECHNICIAN PHYSICAL THERAPY PROGRESS NOTE Name: Chemo Jenkins : 1950 Age: 71 y.o. Admission Date: 07/12/2021 LOS: 6 days Mobility Patient Turn/Position: Self Progressive Mobility Level: Walk in hallway Distance Walked (feet): 220 ft Level of Assistance: Assist X1 Assistive Device: Walker Activity Limited By: Mental Status Variability;Weakness Subjective Significant hospital events: 71M with metastatic bladder cancer s/p cystectomy a nd ileal conduit with peritoneal mets and distal obstruction s/p open loop sigmo id colostomy (07/12) Mental / Cognitive Status: Alert;Cooperative;Follows Commands Persons Present: Spouse;Son Pain: Patient has no complaint of pain Pain Interventions: Patient agrees to participate in therapy with modifications to session Bed Mobility/Transfer Bed Mobility: Supine to Sit: Moderate Assist;Head of Bed Elevated;No Rail;Verbal Cues;Requires Extra Time Transfer Type: Sit to/from Stand Transfer: Assistance Level: From;Bed;To;Bed Side Chair;Moderate Assist Transfer: Assistive Device: Roller Walker Transfers: Type Of Assistance: Verbal Cues;For Safety Considerations;For Balance ;For Strength Deficit End Of Activity Status: Up in Chair;Nursing Notified;Instructed Patient to Reque st Assist with Mobility;Instructed Patient to Use Call Light (chair alarm on) Balance Standing Balance: Dynamic Standing Balance;2 UE support;Moderate Assist Gait Gait Distance: 220 feet Gait: Assistance Level: Moderate Assist;Safety Considerations;Management of Line s Gait: Assistive Device: Roller Walker Gait: Descriptors: Antalgic;Decreased foot clearance RLE;Decreased foot clearanc e LLE;Forward trunk flexion;Pace: Slow;Pathway deviations;Variable step length Activity Limited By: Patient Choice;Weakness Education Persons Educated: Patient Patient Barriers To Learning: Confusion;Cognitive Deficits;Pain Interventions: Repetition of Instructions;Family Education Teaching Methods: Verbal Instruction Patient Response: More Instruction Required Topics: Plan/Goals of PT Interventions;Use of Assistive Device/Orthosis;Mobility Progression;Up with Assist Only;Importance of Increasing Activity;Recommend Con tinued Therapy Assessment/Progress Impaired Mobility Due To: Decreased Strength;Impaired Balance;Cognitive Deficits ;Safety Concerns;Decreased Activity Tolerance;Post Surgical Changes Impaired Strength Due To: Medical Status Limitation Assessment/Progress: Should Improve w/ Continued PT Comments: Pt required assistance to guide RW due to consistent L pathway deviati on with gait. He tolerated ambulatoin distance well and will benefit from contin ued therapy to maxmize function. AM-PAC 6 Clicks Basic Mobility Inpatient Turning from your back to your side while in a flat bed without using bed rails: A lot Moving from lying on your back to sitting on the side of a flatbed without using bedrails : A Lot Moving to and from a bed to a chair (including a wheelchair): A Lot Standing up from a chair using your arms (e.g. wheelchair, or bedside chair): A Lot To walk in hospital room: A Lot Climbing 3-5 steps with a railing: Total Raw Score: 11 Standardized (T-scale) Score: 30.25 Basic Mobility CMS 0-100%: 66.76 CMS G Code Modifier for Basic Mobility: CL AM-PAC Basic Mobility Functional Stage: -11.95-33 Limited Movement Goals Goal Formulation: With Patient/Family, Patient Unable to Participate in Goal Set ting Time For Goal Achievement: 5 days Patient Will Go Supine To/From Sit: Independently Patient Will Transfer Bed/Chair: Independently Patient Will Ambulate: Greater than 200 Feet, w/ Walker, w/ Stand By Assist Patient Will Go Up / Down Stairs: 1-2 Stairs, w/ Stand By Assist Plan Treatment Interventions: Mobility Training;Strengthening;Balance Activities;Endu jose Training Plan Frequency: 5 Days per Week PT Plan for Next Visit: increase ind with bed mob, transfers, gait and stairs PT Discharge Recommendations Recommendation: Inpatient setting Patient Currently Requires Equipment: Owns what is needed Therapist: Benton Chopra PT, DPT Date: 07/18/2021 PMENT SERVICE TECHNICIAN * Nai Cheney RN - 07/17/2021 2:40 PM EQUIPMENT SERVICE TECHNICIAN Patient has had increased nausea and bilious emesis after administration of PRN antiemetic. Patient has had sips of water and boost so far this shift. Primary t eam text paged. PMENT SERVICE TECHNICIAN * Mar William MD - 07/17/2021 1:48 PM EQUIPMENT SERVICE TECHNICIAN Daily Progress Note Today's Date: 07/17/2021 Name: Chemo Jenkins Admission Date: 07/12/2021 (LOS: 5 days) Assessment: 71M with metastatic bladder cancer s/p cystectomy and ileal conduit with peritoneal mets and distal obstruction s/p open loop sigmoid colostomy (06/20 4) Principal Problem: Colon obstruction (HCC) Active Problems: ITA (acute kidney injury) (HCC) Acute ischemic stroke (HCC) Acute right hemiparesis (HCC) Homonymous hemianopia, right Hypovolemia Encephalopathy Moderate malnutrition (HCC) Acute ischemic left WORKDAY SENIOR ASSOCIATE stroke (HCC) Coagulopathy (HCC) Hypovolemic shock (HCC) NSTEMI, initial episode of care ([facility]) Plan: S/p open loop colostomy- ERAS, full liquid diet, advance as tolerated to regular diet; ostomy team Hypotension, acute blood loss anemia- resolved Elevated cardiac enzymes, resolved- cardiology consult, no acute ischemia on EKG , echo with no ischemia, EF 70%, troponin plateaud Pain- multimodal pain control Possible small apical pneumothorax- bilateral breath sounds, hypotension resolve d, no O2 requirement Acute embolic stroke- Stroke team consulted, not a candidate for tpa; started on ASA 81mg and high intensity statin, A1C/lipid panel, carotid US with no evidence of flow limiting disease, neurology recommending ALIYA; we recommend that he does NOT undergo ALIYA given his stability and need for anesthesia with procedure. Ad ditionally our treatments will be limited regardless of the ALIYA results. Cardiol home agrees and will hold off on ALIYA for now. Palliative care consulted for goals of care. Lines/Drains- urostomy/colostomy PPX- SCDs, ambulating when hemodynamically safe with PT/OT, chemoppx Continue inpatient management, will need rehab on discharge Mar William MD [id number] Subjective: ZOILA. Denies pain. No n/v. Tolerating full liquids. Objective: BP: (136-158)/(85-98) Temp: [36.4 C (97.5 F)-37.3 C (99.1 F)] Pulse: [68-83] Respirations: [15 PER MINUTE-19 PER MINUTE] SpO2: [92 %-96 %] Lab Results Component Value Date/Time NA 133 (L) 07/17/2021 03:35 AM K 4.7 07/17/2021 03:35 AM CL 104 07/17/2021 03:35 AM CO2 24 07/17/2021 03:35 AM BUN 15 07/17/2021 03:35 AM CR 0.71 07/17/2021 03:35 AM MG 1.7 07/17/2021 03:35 AM PO4 2.0 07/17/2021 03:35 AM Lab Results Component Value Date/Time HGB 10.1 (L) 07/16/2021 04:40 AM HCT 29.9 (L) 07/16/2021 04:40 AM WBC 9.1 07/16/2021 04:40 AM PLTCT 109 (L) 07/16/2021 04:40 AM INR 1.1 03/31/2021 03:24 PM Lab Results Component Value Date/Time GLUPOC 118 (H) 07/14/2021 11:04 AM GLUPOC 116 (H) 07/12/2021 08:51 PM Physical Exam Constitutional: Appearance: He is normal weight. He is ill-appearing. HENT: Head: Normocephalic. Mouth/Throat: Mouth: Mucous membranes are moist. Eyes: General: No scleral icterus. Cardiovascular: Rate and Rhythm: Normal rate. Pulses: Normal pulses. Heart sounds: Normal heart sounds. Pulmonary: Effort: Pulmonary effort is normal. Abdominal: Comments: Midline incision CDI, RLQ urostomy in place with clear urine, LLQ c olostomy in place with stool and gas; soft, nondistended, nontender Musculoskeletal: General: Normal range of motion. Cervical back: Neck supple. Skin: General: Skin is warm and dry. Neurological: Mental Status: He is alert. Mental status is at baseline. Comments: Right upper and lower extremity weakness, visual defects in right e ye; orientation questions wax/wane Psychiatric: Mood and Affect: Mood normal. Behavior: Behavior normal. Thought Content: Thought content normal. Judgment: Judgment normal. Output by Drain (mL) 07/11/21 0701 - 07/11/21 1900 07/11/21 190 - 07/12/21 0700 07/12/21 0701 - 07/12/21 1900 07/12/21 190 - 07/13/21 0700 07/13/21 0701 - 0707 Colostomy 07/12/21 1354 Upper Left Quadrant 80 ICD-10 code E44: Chronic illness/Moderate non-severe malnutrition Mild loss of muscle mass, Energy intake: < 75% of estimated energy requirement for 1 month or more Loss of Subcutaneous Fat: No Muscle Wasting: Yes Moderate Rastafari, Clavicle, Deltoid (did not assess lower bod y) Edema: No Malnutrition Interventions: high-kcal high-protein shakes PMENT SERVICE TECHNICIAN Associated attestation - Angelo Danielle MD - 07/19/2021 10:46 AM EQUIPMENT SERVICE TECHNICIAN ATTESTATION I personally performed the campo portions of the E/M visit, discussed case with re sident and concur with resident documentation of history, physical exam, assessm ent, and treatment plan unless otherwise noted. Staff name: Angelo Danielle MD Date: 07/19/2021 * Vivi Stoddard MD - 07/16/2021 4:34 PM EQUIPMENT SERVICE TECHNICIAN Staff Cardiology Progress Note Admission Date: 07/12/2021 Today's Date: 07/16/2021 LOS: 4 days Assessment & Plan Chemo Jenkins is a 71 y.o. 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 Patient underwent surgery on 07/12/21 with the finding of peritoneal metastasisandmesenteric te thering. Postoperativelyovernight, he was noted to be lethargic and hypotensiv eBP 89/50and transferred back to ICU for monitoring andmanagement. He was stroke activated on the morning of 07/13 R visual field cut and mild R s leighann weakness. CT head completed and foundmultifocal acute to subacute appearin g bilateral cerebral and cerebellar infarcts with a large left WORKDAY SENIOR ASSOCIATE territory inf arct.MRI 07/13 showed multifocal cerebral and cerebellar infarcts with a domina nt large left WORK[employer] S[employer]IOR ASSOCIATE territory infarct. NSTEMI, type II suspected in the setting of hypotension #Coronary artery calcification Troponins are trending down Patient without active symptoms of angina. Echocardiogram initially showed normal left ventricular systolic function wit h out wall motion normalities We believe that elevation in troponin is most likely secondary to hypotension episode. Continue aspirin 81 mg daily, atorvastatin 40 mg daily for primary prevention of coronary disease given that he has coronary artery calcification. Lipid esparza el today showed an LDL of 34, triglyceride 101, HDL of 31. Recommend regadenoson MPI as an outpatient. #Acute ischemic stroke MRI revealed multifocal cerebral and cerebellar infarcts and a large left WORKDAY SENIOR ASSOCIATE territory infarct which most likely represent combination of embolic and thurman hed infarcts during his a hypotension episode. He may have a remote history of atrial fibrillation but none of that has been captured on telemetry. Given the concern for watershed infarct would recommend bilateral duplex of t he carotids. Recommend 30-day monitor after discharge, pending goals of care. #Acute blood loss anemia #Postoperative hypotension #Metastatic urothelial carcinoma No evidence of atrial fibrillation on tele. I cancelled ALIYA as I do not think i t is high yield and family is having palliative care discussions. His and daughter both discussed their concerns that he would not like to go to a nursing facility. They would like to bring him home but their home is not equipped for him yet. They wanted to discuss possible hospice therapy with his metastatic d islizz. I encouraged palliative care consult. We will follow peripherally. Pl ease call with questions. Subjective Lethargic, not communicating with us Medications Scheduled Meds:aspirin EC tablet 81 mg, 81 mg, Oral, QDAY [Held by Provider] atenoloL (TENORMIN) tablet 25 mg, 25 mg, Oral, QAM8 atorvastatin (LIPITOR) tablet 40 mg, 40 mg, Oral, QDAY brimonidine (ALPHAGAN) 0.2 % ophthalmic solution 1 drop, 1 drop, Both Eyes, BID dorzolamide (TRUSOPT) 2 % ophthalmic solution 1 drop, 1 drop, Right Eye, BID And timoloL maleate (TIMOPTIC) 0.5 % ophthalmic drops 1 drop, 1 drop, Right Eye, BID famotidine (PEPCID) tablet 20 mg, 20 mg, Oral, QDAY heparin (porcine) PF syringe 5,000 Units, 5,000 Units, Subcutaneous, Q8H ketorolac (ACULAR) 0.5 % ophthalmic solution 1 drop, 1 drop, Right Eye, QID latanoprost (XALATAN) 0.005 % ophthalmic solution 1 drop, 1 drop, Right Eye, QHS naloxegoL (MOVANTIK) tablet 25 mg, 25 mg, Oral, QDAY(07) netarsudiL (RHOPRESSA) 0.02 % soln ++patient own supply++, 1 drop, Right Eye, QH S Continuous Infusions: dextrose 5 % & 0.45% NaCl with KCl 20 mEq/L infusion 50 mL/hr at 07/16/21 0243 PRN and Respiratory Meds:[Held by Provider] cetirizine QDAY PRN, ondansetron (ZO SUGAR) IV Q6H PRN, [Held by Provider] traMADoL Q6H PRN Objective Vital Signs: Last Filed Vital Signs: 24 Kwesi r Range BP: 138/85 (07/16 1600) Temp: 36.8 C (98.2 F) (07/16 1200) Pulse: 72 (07/16 1600) Respirations: 16 PER MINUTE (07/16 1600) SpO2: 93 % (07/16 1600) SpO2 Pulse: 72 (07/16 1600) BP: (115-139)/(75-88) Temp: [36.4 C (97.5 F)-36.9 C (98.5 F)] Pulse: [72-85] Respirations: [12 PER MINUTE-16 PER MINUTE] SpO2: [90 %-97 %] Vitals: 07/12/21 1146 07/13/21 0700 07/15/21 0904 Weight: 64.8 kg (142 lb 12.8 oz) 64.8 kg (142 lb 13.7 oz) 64.8 kg (142 lb 13.7 o z) Intake/Output Summary: (Last 24 hours) Intake/Output Summary (Last 24 hours) at 07/16/2021 1635 Last data filed at 07/16/2021 1600 Gross per 24 hour Intake 1640 ml Output 1160 ml Net 480 ml Physical Exam GEN: no acute distress, lethargic HEENT: unremarkable CHEST: clear to auscultation bilaterally CV: Reg rhythm, nml rate; nml S1 & S2, no S3 or S4; no rub; no murmurs ABD: soft, nontender, BS+, no masses or bruits, no organomegaly EXT: no c/c/e, 2+ distal pulses Lab Review Results for orders placed or performed during the hospital encounter of 07/12/21 (from the past 24 hour(s)) CBC Collection Time: 07/16/21 4:40 AM Result Value Ref Range White Blood Cells 9.1 4.5 - 11.0 K/UL RBC 3.30 (L) 4.4 - 5.5 M/UL Hemoglobin 10.1 (L) 13.5 - 16.5 GM/DL Hematocrit 29.9 (L) 40 - 50 % MCV 90.6 80 - 100 FL MCH 30.6 26 - 34 PG MCHC 33.8 32.0 - 36.0 G/DL RDW 15.5 (H) 11 - 15 % Platelet Count 109 (L) 150 - 400 K/UL MPV 9.3 7 - 11 FL BASIC METABOLIC PANEL Collection Time: 07/16/21 4:40 AM Result Value Ref Range Sodium 136 (L) 137 - 147 MMOL/L Potassium 5.1 3.5 - 5.1 MMOL/L Chloride 108 98 - 110 MMOL/L CO2 24 21 - 30 MMOL/L Anion Gap 4 3 - 12 Glucose 103 (H) 70 - 100 MG/DL Blood Urea Nitrogen 19 7 - 25 MG/DL Creatinine 0.77 0.4 - 1.24 MG/DL Calcium 7.4 (L) 8.5 - 10.6 MG/DL eGFR >60 >60 mL/min MAGNESIUM Collection Time: 07/16/21 4:40 AM Result Value Ref Range Magnesium 1.9 1.6 - 2.6 mg/dL PHOSPHORUS Collection Time: 07/16/21 4:40 AM Result Value Ref Range Phosphorus 1.7 (L) 2.0 - 4.5 MG/DL Tele sinus rhythym, no atrial fibrillation Vivi Stoddard MD PMENT SERVICE TECHNICIAN * Yaritza La, OT - 07/16/2021 3:21 PM EQUIPMENT SERVICE TECHNICIAN OCCUPATIONAL THERAPY NOTE Name: Chemo Jenkins : 1950 Age: 71 y.o. Admission Date: 07/12/2021 LOS: 4 days Attempted to see patient at scheduled time with rehabilitation engineer. Patient and family c urrently meeting with Palliative team. OT will continue to follow. Therapist: SUKUMAR Randall/Bhupinder [id number] Date: 07/16/2021 PMENT SERVICE TECHNICIAN * Benton Chopra, PT - 07/16/2021 1:43 PM EQUIPMENT SERVICE TECHNICIAN PHYSICAL THERAPY PROGRESS NOTE Name: Chemo Jenkins : 1950 Age: 71 y.o. Admission Date: 07/12/2021 LOS: 4 days Mobility Patient Turn/Position: Self Progressive Mobility Level: Walk in hallway Distance Walked (feet): 160 ft Level of Assistance: Assist X2 Assistive Device: Walker Activity Limited By: Mental Status Variability;Weakness Subjective Significant hospital events: 71M with metastatic bladder cancer s/p cystectomy a nd ileal conduit with peritoneal mets and distal obstruction s/p open loop sigmo id colostomy (07/12) Mental / Cognitive Status: Alert;Disoriented;To Place;To Situation;To Time;Arous able;Withdrawn;Cooperative Persons Present: RehabTechnician;Spouse;Daughter Pain: Patient complains of pain;Patient unable to rate pain Pain Location: Post-surgical Pain Interventions: Patient agrees to participate in therapy with modifications to session Comments: pt unable to be re-oriented despite multiple attempts, tulio meza nce and R side inattention Bed Mobility/Transfer Bed Mobility: Rolling: Maximum Assist;Head of Bed Elevated;Use of Rail;Log Roll Bed Mobility: Supine to Sit: Maximum Assist;Head of Bed Elevated;Use of Rail Transfer Type: Sit to/from Stand Transfer: Assistance Level: From;Bed;To;Bed Side Chair;Moderate Assist Transfer: Assistive Device: Roller Walker Transfers: Type Of Assistance: Verbal Cues;For Safety Considerations;For Balance ;For Strength Deficit End Of Activity Status: Up in Chair;Nursing Notified;Instructed Patient to Reque st Assist with Mobility;Instructed Patient to Use Call Light (chair alarm on) Balance Standing Balance: Dynamic Standing Balance;2 UE support;Minimal Assist;x2 People Gait Gait Distance: 160 feet Gait: Assistance Level: Minimal Assist;x2 People;Safety Considerations;Managemen t of Lines Gait: Assistive Device: Roller Walker Gait: Descriptors: Antalgic;Decreased foot clearance RLE;Decreased foot clearanc e LLE;Forward trunk flexion;Pace: Slow;Pathway deviations;Variable step length Comments: Second person to assist with guiding roller walker as patient tends to deviate to L Activity Limited By: Weakness Education Persons Educated: Patient Patient Barriers To Learning: Confusion;Cognitive Deficits;Pain Interventions: Repetition of Instructions;Family Education Teaching Methods: Verbal Instruction Patient Response: More Instruction Required Topics: Plan/Goals of PT Interventions;Use of Assistive Device/Orthosis;Mobility Progression;Up with Assist Only;Importance of Increasing Activity;Recommend Con tinued Therapy Assessment/Progress Impaired Mobility Due To: Decreased Strength;Impaired Balance;Cognitive Deficits ;Safety Concerns;Decreased Activity Tolerance;Post Surgical Changes Impaired Strength Due To: Medical Status Limitation Assessment/Progress: Should Improve w/ Continued PT Comments: Patient tolerated treatment well. He required Ax2 for balance and RW m anagement. He will benefit from continued therapy to maxmize function. AM-PAC 6 Clicks Basic Mobility Inpatient Turning from your back to your side while in a flat bed without using bed rails: A lot Moving from lying on your back to sitting on the side of a flatbed without using bedrails : A Lot Moving to and from a bed to a chair (including a wheelchair): A Lot Standing up from a chair using your arms (e.g. wheelchair, or bedside chair): A Lot To walk in hospital room: Total Climbing 3-5 steps with a railing: Total Raw Score: 10 Standardized (T-scale) Score: 28.13 Basic Mobility CMS 0-100%: 71.92 CMS G Code Modifier for Basic Mobility: CL AM-PAC Basic Mobility Functional Stage: -11.95-33 Limited Movement Goals Goal Formulation: With Patient/Family, Patient Unable to Participate in Goal Set ting Time For Goal Achievement: 5 days Patient Will Go Supine To/From Sit: Independently Patient Will Transfer Bed/Chair: Independently Patient Will Ambulate: Greater than 200 Feet, w/ Walker, w/ Stand By Assist Patient Will Go Up / Down Stairs: 1-2 Stairs, w/ Stand By Assist Plan Treatment Interventions: Mobility Training;Strengthening;Balance Activities;Endu jose Training Plan Frequency: 5 Days per Week PT Plan for Next Visit: increase ind with bed mob, transfers, gait and stairs PT Discharge Recommendations Recommendation: Inpatient setting Patient Currently Requires Equipment: Owns what is needed Therapist: Benton Chopra PT, DPT Date: 07/16/2021 PMENT SERVICE TECHNICIAN * Elvie Ratliff MD - 07/16/2021 11:52 AM EQUIPMENT SERVICE TECHNICIAN Neurology Progress Note Chemo Thayerles Admission Date: 07/12/2021 LOS: 4 days Assessment/Plan: Principal Problem: Colon obstruction (HCC) Active Problems: ITA (acute kidney injury) (HCC) Acute ischemic stroke (HCC) Acute right hemiparesis (HCC) Homonymous hemianopia, right Hypovolemia Encephalopathy Moderate malnutrition (HCC) Acute ischemic left WORKDAY SENIOR ASSOCIATE stroke (HCC) Encephalopathy Pt seen and examined. Family members at bedside. Chart reviewed. relevant neuro images( MRI/MRA 07/13) and labs are reviewed. 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 Patient underwent surgery on 07/12/21 w ith the finding of peritoneal metastasisandmesenteric tethering. Postoperati velyovernight, he was noted to be lethargic and hypotensiveBP 89/50and tra nsferred back to ICU for monitoring andmanagement. He was stroke activated on the morning of 07/13 R visual field cut and mild R s leighann weakness. CT head completed and foundmultifocal acute to subacute appearin g bilateral cerebral and cerebellar infarcts with a large left WORKDAY SENIOR ASSOCIATE territory inf arct.MRI 07/13 showed multifocal cerebral and cerebellar infarcts with a domina nt large left WORKDAY SENIOR ASSOCIATE territory infarct. Exam this am: Pt is awake, alert. Does not know his age. Poor short term memory. Unable to rec all I just had conversation with him. Family reported that pt was paranoid from time to time. assessment and plan; WORKDAY SENIOR ASSOCIATE and other territory stroke: d/w pt family, ALIYA will not change overall manag ement pic. Will not pursue aggressive work up. Metastatic urothelial carcinoma: on palliative tumor management. Confusion and poor short term memory: multiple factorial. Java Spring Developer stroke involving h is left temporal lobe contribute his poor short term memory and confusion signif icantly. In consideration of his over all clinical pic, recommended palliative team consu lt for goal of care discussion. Cont asa for now. Stroke respond team will sign off. Please call us with questions. Elvie Ratliff MD Vascular neurologist [place]. PMENT SERVICE TECHNICIAN * Bakari Stone PHARMD - 07/16/2021 10:25 AM EQUIPMENT SERVICE TECHNICIAN Pharmacy Note: Patients Own Med The following medications have been identified by pharmacy and placed in the [facility] medication room for storage: Netarsudil ( Rhopressa) 0.02% soln. rx [id number] Lot # [id number] exp 08/2023. The patient may use their own supply of these medications during this admission. All doses should be administered and documented per hospital policy. PMENT SERVICE TECHNICIAN * Scott Garcia MD - 07/16/2021 6:32 AM EQUIPMENT SERVICE TECHNICIAN Daily Progress Note Today's Date: 07/16/2021 Name: Chemo Jenkins Admission Date: 07/12/2021 (LOS: 4 days) Assessment: 71M with metastatic bladder cancer s/p cystectomy and ileal conduit with peritoneal mets and distal obstruction s/p open loop sigmoid colostomy (06/20 4) Principal Problem: Colon obstruction (HCC) Active Problems: ITA (acute kidney injury) (HCC) Acute ischemic stroke (HCC) Acute right hemiparesis (HCC) Homonymous hemianopia, right Hypovolemia Encephalopathy Moderate malnutrition (HCC) Acute ischemic left WORKDAY SENIOR ASSOCIATE stroke (HCC) Coagulopathy (HCC) Hypovolemic shock (HCC) NSTEMI, initial episode of care ([facility]) Plan: S/p open loop colostomy- ERAS, full liquid diet, advance as tolerated; ostomy te am Hypotension, acute blood loss anemia- resolved Elevated cardiac enzymes, resolved- cardiology consult, no acute ischemia on EKG , echo with no ischemia, EF 70%, troponin plateaud Pain- multimodal pain control Possible small apical pneumothorax- bilateral breath sounds, hypotension resolve d, no O2 requirement Acute embolic stroke- Stroke team consulted, not a candidate for tpa; started on ASA 81mg and high intensity statin, A1C/lipid panel, carotid US with no evidence of flow limiting disease, neurology recommending ALIYA; we recommend that he does NOT undergo ALIYA given his stability and need for anesthesia with procedure. Ad ditionally our treatments will be limited regardless of the ALIYA results. Will di scuss this with neurology staff and RECEIVING WEIGHER. Lines/Drains- urostomy/colostomy PPX- SCDs, ambulating when hemodynamically safe with PT/OT, chemoppx Continue inpatient management, will need rehab on discharge Scott Garcia MD [id number] Subjective: No acute events, normotensive, does not complain of pain, no bowel function yet, waxing/waning orietnation questions Objective: BP: (115-139)/(75-88) Temp: [36.4 C (97.5 F)-36.9 C (98.5 F)] Pulse: [72-85] Respirations: [12 PER MINUTE-16 PER MINUTE] SpO2: [92 %-97 %] Lab Results Component Value Date/Time NA 136 (L) 07/16/2021 04:40 AM K 5.1 07/16/2021 04:40 AM CL 108 07/16/2021 04:40 AM CO2 24 07/16/2021 04:40 AM BUN 19 07/16/2021 04:40 AM CR 0.77 07/16/2021 04:40 AM MG 1.9 07/16/2021 04:40 AM PO4 1.7 (L) 07/16/2021 04:40 AM Lab Results Component Value Date/Time HGB 10.1 (L) 07/16/2021 04:40 AM HCT 29.9 (L) 07/16/2021 04:40 AM WBC 9.1 07/16/2021 04:40 AM PLTCT 109 (L) 07/16/2021 04:40 AM INR 1.1 03/31/2021 03:24 PM Lab Results Component Value Date/Time GLUPOC 118 (H) 07/14/2021 11:04 AM GLUPOC 116 (H) 07/12/2021 08:51 PM Physical Exam Constitutional: Appearance: He is normal weight. He is ill-appearing. HENT: Head: Normocephalic. Mouth/Throat: Mouth: Mucous membranes are moist. Eyes: General: No scleral icterus. Cardiovascular: Rate and Rhythm: Normal rate. Pulses: Normal pulses. Heart sounds: Normal heart sounds. Pulmonary: Effort: Pulmonary effort is normal. Abdominal: Comments: Midline incision CDI with dressing in place, RLQ urostomy in place with clear urine, LLQ colostomy in place with mild amount of bowel sweat; soft, nondistended, nontender Musculoskeletal: General: Normal range of motion. Cervical back: Neck supple. Skin: General: Skin is warm and dry. Neurological: Mental Status: He is alert. Mental status is at baseline. Comments: Right upper and lower extremity weakness, visual defects in right e ye; orientation questions wax/wane Psychiatric: Mood and Affect: Mood normal. Behavior: Behavior normal. Thought Content: Thought content normal. Judgment: Judgment normal. Output by Drain (mL) 07/11/21 0701 - 07/11/21 1900 07/11/21 1901 - 07/12/21 0700 07/12/21 0701 - 07/12/21 1900 07/12/21 1901 - 07/13/21 0700 07/13/21 0701 - 0707 Colostomy 07/12/21 1354 Upper Left Quadrant 80 ICD-10 code E44: Chronic illness/Moderate non-severe malnutrition Mild loss of muscle mass, Energy intake: < 75% of estimated energy requirement for 1 month or more Loss of Subcutaneous Fat: No Muscle Wasting: Yes Moderate Rastafari, Clavicle, Deltoid (did not assess lower bod y) Edema: No Malnutrition Interventions: high-kcal high-protein shakes PMENT SERVICE TECHNICIAN * Laura Damon RN - 07/15/2021 3:57 PM EQUIPMENT SERVICE TECHNICIAN 1535: Surg-onc team notified of bleeding around site of colostomy. Per team, tod t is expected. No new orders at this time. Colostomy bag changed. PMENT SERVICE TECHNICIAN * Elvie Ratliff MD - 07/15/2021 3:14 PM EQUIPMENT SERVICE TECHNICIAN Images from the original note were not included. Vascular Neurology Progress Note Admission Date: 07/12/2021 LOS: 3 days Principal Problem: Colon obstruction (HCC) Active Problems: ITA (acute kidney injury) (HCC) Acute ischemic stroke (HCC) Acute right hemiparesis (HCC) Homonymous hemianopia, right Hypovolemia Encephalopathy Moderate malnutrition (HCC) Assessment: Chemo Jenkins is a 71 y.o. male with metastatic urothelial carcinoma s/p radical cystectomy/prostatectomy, remote history of pAF who was admitted on 06/20 for exploratory laparotomy and diverting loop ostomy. Patient underwent s urgery on 07/12/21 with the finding of peritoneal metastasis and mesenteric tethe ring. Postoperatively overnight, he was noted to be lethargic and hypotensive BP 89/50 and transferred back to ICU for monitoring and management. He was originally stroke activated on the morning of 07/13 R visual field cut and mild R side weakness found by primary team/therapies. CT head completed and fou nd multifocal acute to subacute appearing bilateral cerebral and cerebellar infa rcts with a large left WORKDAY S[employer]IOR [employer]OCIATE territory infarct. At that time the stroke team was a ctivated on 07/13 the NIHSS was 7 for disorientation, R side drift, R homonymous hemianopia and L side extinction deficit. Elevated Creatinine prevented us from getting CTA head and neck. 07/13 MRI head: Revealed multifocal cerebral and cerebellar infarcts with a large left WORK[employer]ATE territory infarct. This may represent a combination of embolic and ashely ershed infarcts. There is mild petechial hemorrhage within the left occipital in farct bed. Suspected Stroke Etiology: Possibly a combination of embolic and cerebral hypope rfusion in setting of hypotension. Current Exam: Alert, disoriented to time and place. He follows commands well. He has a flat affect. Gaze is midline, no nystagmus. R homonymous hemianopia. Mild L facial asymmetry. RUE 4/5 strength and RLE 4/5. LUE/LLE is 5/5. Questionable left side extinction deficit in lower extremity although this seems to fluctuate . He denies numbness at this time. 07/15 Recommendations: > Bilateral Carotid Duplex, w/ 50% stenosis in bilateral ICA's > No clear evidence to start anticoagulation at this time, however if primary team feels hypercoagulable state in setting of malignancy, may start AC as needed. > Consider ALIYA to better visualize intracardiac structures > Please discuss with Cardiology the possibility of placing an implantable cardiac loop recorder prior to discharge to monitor for arrhythmia/Afib > Stroke service to follow along Secondary Stroke Risk Optimization: - Blood Pressure Goal: <140/90 - Current BP meds: None - Echocardiogram on 07/13 was unremarkable, no intracardiac thrombus or valvular vegetation - Antiplatelet: 81mg ASA daily - Lipids: LDL is 34, at goal of <70, no indication for statin at this time - Blood Glucose: Hgb A1c is 5.6, and at goal of <7 - Tobacco abstinence - PT/OT following - Follow up appointment with Neurology clinic will be requested Otf Vines APRN-ANN Vascular Neurology Subjective: No overnight events. Patient's exam appears stable. Scheduled Meds:acetaminophen (TYLENOL EXTRA STRENGTH) tablet 1,000 mg, 1,000 mg, Oral, Q8H aspirin EC tablet 81 mg, 81 mg, Oral, QDAY [Held by Provider] atenoloL (TENORMIN) tablet 25 mg, 25 mg, Oral, QAM8 atorvastatin (LIPITOR) tablet 40 mg, 40 mg, Oral, QDAY brimonidine (ALPHAGAN) 0.2 % ophthalmic solution 1 drop, 1 drop, Both Eyes, BID dorzolamide (TRUSOPT) 2 % ophthalmic solution 1 drop, 1 drop, Right Eye, BID And timoloL maleate (TIMOPTIC) 0.5 % ophthalmic drops 1 drop, 1 drop, Right Eye, BID famotidine (PEPCID) tablet 20 mg, 20 mg, Oral, QDAY HELP MEDICATION, , Right Eye, QHS heparin (porcine) PF syringe 5,000 Units, 5,000 Units, Subcutaneous, Q8H ketorolac (ACULAR) 0.5 % ophthalmic solution 1 drop, 1 drop, Right Eye, QID latanoprost (XALATAN) 0.005 % ophthalmic solution 1 drop, 1 drop, Right Eye, QHS naloxegoL (MOVANTIK) tablet 25 mg, 25 mg, Oral, QDAY(07) Continuous Infusions: dextrose 5 % & 0.45% NaCl with KCl 20 mEq/L infusion 50 mL/hr at 07/15/21 0636 PRN and Respiratory Meds:[Held by Provider] cetirizine QDAY PRN, ondansetron (ZO SUGAR) IV Q6H PRN, [Held by Provider] traMADoL Q6H PRN Vital Signs: Last Filed in 24 hours Vital Signs: 24 hour Range BP: 105/75 (07/15 1200) Temp: 36.4 C (97.5 F) (07/15 1200) Pulse: 92 (07/15 1300) Respirations: 12 PER MINUTE (07/15 1300) SpO2: 93 % (07/15 1300) SpO2 Pulse: 96 (07/15 1200) Height: 172.7 cm (68") (07/15 0904) BP: (105-144)/(68-75) ABP: (93-143)/(44-63) Temp: [36.3 C (97.3 F)-36.7 C (98 F)] Pulse: [72-96] Respirations: [11 PER MINUTE-19 PER MINUTE] SpO2: [93 %-96 %] General physical exam: HEENT: normocephalic, eyes open with no discharge, nares patent, oropharynx is c lear with no lesions, palate intact CV: regular rate, distal pulses palpable, no dependent edema Chest: normal configuration, equal chest rise bilaterally Ab: soft, non-tender, no masses, no organomegaly Skin: no rashes or lesions Extended Neuro exam: MS: alert, flat affect, but disoriented to place/time Speech: fluent and clear CN II-XII intact, mild left lower face weakness Cerebellar exam: no ataxia, dysmetria, or nystagmus Strength: moves all 4 limbs spontaneously, 4/5 RUE/RLE and 5/5 in LUE/LLE Sensation: Reportedly intact to touch but possible extinction deficit LLE DTRs: 2/4 throughout, toes downgoing NIH Stroke Scale Item Scoring Definition Score 1a. LOC 0=alert and responsive 1=arousable to minor stimulation 2=arousable only to painful stimulation 3=reflex responses or unrousable 0 1b. LOC questions-as patients age and month. Must be exact. 0=both correct 1=one correct (or dysarthria, intubated, foreign language) 2=neither correct 2 1c. 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, hand packer and release non-paretic hand (other 1 step co mmands or mimic OK) 0=both correct (ok if impaired by weakness) 1=one correct 2=neither correct 0 2. Best Gaze-horizontal EOM by voluntary or Dolls 0=normal 1=partial gaze palsy (abnormal gaze in one or both eyes) 2=forced eye deviation or total paresis which cannot be overcome by Dolls 0 3. Visual Field-use visual threat if necessary. If monocular, score field of goo d eye 0=no visual loss 1=partial hemianopia, quadrantanopia, extinction 2=complete hemianopia 3=bilateral hemianopia or blindness 2 (R) 4. Facial Palsy-if stuporous, check symmetry of grimace to pain 0=normal 1=minor paralysis, flat NLF, asymm smile 2=partial paralysis (lower face=UMN) 3=complete paralysis (upper and lower face) 1 5. Motor Arm-arms outstretched 90 deg (sitting) or 45 deg (supine) for 10 second s. Encourage best effort. 0=no drift x 10 seconds 1=drift but doesnt hit bed 2=some antigravity effort, but cant sustain 3=no antigravity effort, but even minimal mvt counts 4=no movement at all X=unable to assess due to amputation, fusion, etc L/R 0/1 6. Motor Leg-raise leg to 30 degrees supine x 5 seconds 0=no drift x 5 seconds 1=drift but doesnt hit bed 2=some antigravity effort, but cant sustain 3=no antigravity effort, but even minimal mvt counts 4=no movement at all X=unable to assess due to amputation, fusion, etc L/R 0/1 7. Limb Ataxia-check finger-nose- finger; heel-johnson; and score only if out of pr oportion to paralysis 0=no ataxia (or aphasic, hemiplegic) 1=ataxia in upper or lower extremity 2=ataxia in upper AND lower extremity X=unable to assess due to amputation, fusion, etc L/R 0/0 8. Sensory-use safety pin. Check grimace or withdrawal if stuporous. Score only stroke- related losses 0=normal 1=mild-mod unilateral loss but patient aware of touch 9or aphasic, confused) 2=total loss, pt unaware of touch. Coma, bilateral loss 0 9. Best Language-describe cookie jar picture, name objects, read sentences. May use repeating, writing, stereognosis 0=normal 1=mild-mod aphasia (diff but partly comprehensible) 2=severe aphasia (almost no info exchanged) 3=mute, global aphasia, coma. No 1 step commands 0 10. Dysarthria-read list of words 0=normal 1=mild-mod; slurred but intelligible 2=severe; unintelligible or mute 1 11. Extinction/Neglect- simultaneously touch patient on both hands, show fingers in both visual shoemaker, ask about deficit, left hand 0=normal, none detected. ( visual loss alone) 1=neglects or extinguishes to double simult stimulation in any modality 2=profound neglect in more than one modality 0 Score 8 Lab/Radiology/Other Diagnostic Tests: Hematology: Lab Results Component Value Date HGB 9.6 07/15/2021 HCT 28.7 07/15/2021 PLTCT 100 07/15/2021 WBC 9.5 07/15/2021 NEUT 85 07/09/2021 ANC 8.20 07/09/2021 ALC 0.40 07/09/2021 MARIBELL 9 07/09/2021 AMC 0.90 07/09/2021 ABC 0.10 07/09/2021 MCV 89.3 07/15/2021 MCHC 33.4 07/15/2021 MPV 9.3 07/15/2021 RDW 15.3 07/15/2021 and General Chemistry: Lab Results Component Value Date NA 140 07/15/2021 K 4.9 07/15/2021 CL 107 07/15/2021 GAP 9 07/15/2021 BUN 30 07/15/2021 CR 0.95 07/15/2021 GLU 108 07/15/2021 CA 7.7 07/15/2021 ALBUMIN 2.8 07/12/2021 LACTIC 0.9 07/13/2021 OBSCA 1.17 07/13/2021 MG 2.3 07/15/2021 TOTBILI 0.8 07/12/2021 Pertinent radiological imaging has been reviewed by the Vascular Neurology team. MR brain: 1. 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 This appears represent a combination of embolic and watershed infarcts. Gradient susceptibility within the right cau date, left parietal lobe, and left greater than right occipital lobes, compatibl e with petechial hemorrhagic conversion. 2. No midline shift or herniation. 3. Mild supratentorial white matter disease that is likely related to chronic m icrovascular ischemic changes in a patient this age. MRA head: 1. Occlusion of the left WORK[employer] S[employer]IOR [employer]OCIATE at the level of the mid to distal P2 segment (corre sponding to the large left WORK[employer] S[employer]IOR [employer]OCIATE territory infarct). 2. Otherwise patent major intracranial arteries without focal stenosis. Otf Vines APRN-ANN Vascular Neurology [id number] or Voalte PMENT SERVICE TECHNICIAN * Vivi Stoddard MD - 07/15/2021 2:52 PM EQUIPMENT SERVICE TECHNICIAN CARDIOLOGY CONSULT PROGRESS NOTE Patient Name: Chemo Jenkins Age: 71 y.o. Sex: male Subjective: No new complaints today. There were no acute events overnight. Reviewed telemetry: NSR Review of Systems Cardiovascular: Denies chest pain, palpitations Respiratory: Denies cough or shortness of breath. Objective: Vital Signs: Most Recent Vital Signs: 24 Ho ur Range BP: 105/75 (07/15 1200) Temp: 36.4 C (97.5 F) (07/15 1200) Pulse: 92 (07/15 1300) Respirations: 12 PER MINUTE (07/15 1300) SpO2: 93 % (07/15 1300) SpO2 Pulse: 96 (07/15 1200) Height: 172.7 cm (5' 8") (07/15 0904) BP: (105-144)/(66-75) ABP: (93-143)/(44-63) Temp: [36.3 C (97.3 F)-36.7 C (98 F)] Pulse: [72-96] Respirations: [11 PER MINUTE-19 PER MINUTE] SpO2: [93 %-96 %] Vitals: 07/12/21 1146 07/13/21 0700 07/15/21 0904 Weight: 64.8 kg (142 lb 12.8 oz) 64.8 kg (142 lb 13.7 oz) 64.8 kg (142 lb 13.7 o z) Intake/Output Summary (Last 24 hours) at 07/15/2021 1452 Last data filed at 07/15/2021 1400 Gross per 24 hour Intake 1200 ml Output 1225 ml Net -25 ml Stool Occurrence: 0 Physical Exam BP 105/75 (BP Source: Arm, Right Upper) | Pulse 92 | Temp 36.4 C (97.5 F) | Ht 1.727 m (5' 8") | Wt 64.8 kg (142 lb 13.7 oz) | SpO2 93% | BMI 21.72 kg /m Physical Exam General Appearance: well developed, well nourished Neck Veins: neck veins are not distended Auscultation/Percussion: lungs clear to auscultation, no rales or rhonchi, no wh eezing Cardiac Auscultation: S1, S2 normal, no rub, no gallop, murmurs Carotid Arteries: no bruits Lower Extremity : no lower extremity edema Neurologic Exam: RUE 4/5 strength Medications Scheduled Meds:acetaminophen (TYLENOL EXTRA STRENGTH) tablet 1,000 mg, 1,000 mg, Oral, Q8H aspirin EC tablet 81 mg, 81 mg, Oral, QDAY [Held by Provider] atenoloL (TENORMIN) tablet 25 mg, 25 mg, Oral, QAM8 atorvastatin (LIPITOR) tablet 40 mg, 40 mg, Oral, QDAY brimonidine (ALPHAGAN) 0.2 % ophthalmic solution 1 drop, 1 drop, Both Eyes, BID dorzolamide (TRUSOPT) 2 % ophthalmic solution 1 drop, 1 drop, Right Eye, BID And timoloL maleate (TIMOPTIC) 0.5 % ophthalmic drops 1 drop, 1 drop, Right Eye, BID famotidine (PEPCID) tablet 20 mg, 20 mg, Oral, QDAY gabapentin (NEURONTIN) capsule 300 mg, 300 mg, Oral, TID HELP MEDICATION, , Right Eye, QHS heparin (porcine) PF syringe 5,000 Units, 5,000 Units, Subcutaneous, Q8H ketorolac (ACULAR) 0.5 % ophthalmic solution 1 drop, 1 drop, Right Eye, QID latanoprost (XALATAN) 0.005 % ophthalmic solution 1 drop, 1 drop, Right Eye, QHS naloxegoL (MOVANTIK) tablet 25 mg, 25 mg, Oral, QDAY(07) Continuous Infusions: dextrose 5 % & 0.45% NaCl with KCl 20 mEq/L infusion 50 mL/hr at 07/15/21 0636 PRN and Respiratory Meds:[Held by Provider] cetirizine QDAY PRN, ondansetron (ZO SUGAR) IV Q6H PRN, [Held by Provider] traMADoL Q6H PRN Lab/Radiology/Other Diagnostic Tests: Pertinent labs, imaging and telemetry reviewed. 24-hour labs: Hematology: Lab Results Component Value Date HGB 9.6 07/15/2021 HCT 28.7 07/15/2021 PLTCT 100 07/15/2021 WBC 9.5 07/15/2021 NEUT 85 07/09/2021 ANC 8.20 07/09/2021 ALC 0.40 07/09/2021 MARIBELL 9 07/09/2021 AMC 0.90 07/09/2021 ABC 0.10 07/09/2021 MCV 89.3 07/15/2021 MCHC 33.4 07/15/2021 MPV 9.3 07/15/2021 RDW 15.3 07/15/2021 , Coagulation: Lab Results Component Value Date INR 1.1 03/31/2021 , General Chemistry: Lab Results Component Value Date NA 140 07/15/2021 K 4.9 07/15/2021 CL 107 07/15/2021 GAP 9 07/15/2021 BUN 30 07/15/2021 CR 0.95 07/15/2021 GLU 108 07/15/2021 CA 7.7 07/15/2021 ALBUMIN 2.8 07/12/2021 LACTIC 0.9 07/13/2021 OBSCA 1.17 07/13/2021 MG 2.3 07/15/2021 TOTBILI 0.8 07/12/2021 , Enzymes: Lab Results Component Value Date AST 23 07/12/2021 ALT 8 07/12/2021 ALKPHOS 55 07/12/2021 , Cardiac markers: Lab Results Component Value Date TNI 0.60 07/14/2021 and Mg and PO4: Lab Results Component Value Date MG 2.3 07/15/2021 Assessment & Recs Principal Problem: Colon obstruction (HCC) Active Problems: ITA (acute kidney injury) (HCC) Acute ischemic stroke (HCC) Acute right hemiparesis (HCC) Homonymous hemianopia, right Hypovolemia Encephalopathy Moderate malnutrition (HCC) #NSTEMI, type II suspected in the setting of hypotension #Coronary artery calcification Troponins are trending down Patient without active symptoms of angina. Echocardiogram initially showed normal left ventricular systolic function with o ut wall motion normalities We believe that elevation in troponin is most likely secondary to hypotension ep isode. Continue aspirin 81 mg daily, atorvastatin 40 mg daily for primary prevention of coronary disease given that he has coronary artery calcification. Lipid panel today showed an LDL of 34, triglyceride 101, HDL of 31. Recommend regadenoson MPI as an outpatient. #Acute ischemic stroke MRI revealed multifocal cerebral and cerebellar infarcts and a large left WORKDAY SENIOR ASSOCIATE te rritory infarct which most likely represent combination of embolic and watershed infarcts during his a hypotension episode. He may have a remote history of atrial fibrillation but none of that has been ca ptured on telemetry. Given the concern for watershed infarct would recommend bilateral duplex of the carotids. Recommend 30-day monitor after discharge. Okay to pursue ALIYA if cardio-embolic etiology is highly suspected. #Acute blood loss anemia #Postoperative hypotension #Metastatic urothelial carcinoma Loc Trevino, Fellow, Cardiology Pager: [phone] I personally took the history, examined the patient and formulated the treatment plan. I discussed the above with the fellow. PMENT SERVICE TECHNICIAN * Yaritza La, OT - 07/15/2021 2:50 PM EQUIPMENT SERVICE TECHNICIAN OCCUPATIONAL THERAPY PROGRESS NOTE Name: Chemo Jenkins : 1950 Age: 71 y.o. Admission Date: 07/12/2021 LOS: 3 days Mobility Patient Turn/Position: Right Progressive Mobility Level: Walk in hallway Distance Walked (feet): 250 ft Level of Assistance: Assist X2 Assistive Device: Walker Activity Limited By: Mental Status Variability;Weakness Subjective Pertinent Dx per Physician: 71M with metastatic bladder cancer s/p cystectomy an d ileal conduit with peritoneal mets and distal obstruction s/p open loop sigmoi d colostomy (07/12). 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 Precautions: Falls (colstomy/urostomy) Pain / Complaints: Patient agrees to participate in therapy;Unable to rate Pain Location: Abdomen Objective Psychosocial Status: Willing and Cooperative to Participate Persons Present: RehabTechnician;Spouse;Daughter Home Living Type of Home: House Home Layout: One Level;Stairs to Enter w/o Rails (2-3 LETY) Bathroom Shower / Tub: Walk-in Shower Bathroom Toilet: Standard Home Equipment: Walker Prior Function Level Of [place]: Independent with ADLs and functional transfers;Independen t with homemaking w/ ambulation Lives With: Spouse Receives Help From: None Needed Other Function Comments: Patient poor historian, spouse provides subjective info rmation. Spouse reports patient independent without AD prior to surgery. Vision Current Vision: Wears Glasses All of the Time Visual History: Macular Degeneration Comment: Pt reports vision is blurrier than normal. R visual field cut. Hand/eye coordination deficit. ADL's Where Assessed: Edge of Bed UE Dressing Assist: Maximum Assist UE Dressing Deficits: Thread RUE;Thread LUE LE Dressing Assist: Maximum Assist LE Dressing Deficits: Thread RLE Into Underwear;Thread LLE Into Underwear;Pull U p Over Hips Toileting Assist: Total Assist Toileting Deficits: Perineal Hygiene Comment: Pt noted to have loose stool on chux and gown upon standing. Pt stands for chetan care. Sits on bed for gown change and to don brief. Pt able to follow s imple commands (kick out L foot) on every extremity, however unable to motor ariel n complex commands (put on brief). Pt ambulates lap around unit, blood dripping onto floor coming from ostomy pouch. RN notified at end of session. ADL Mobility Bed Mobility: Supine to Sit: Minimal assist Bed Mobility: Sit to Supine: Moderate assist Transfer Type: Sit to stand Transfer: Assistance Level: Minimal assist;From;Bed Transfer: Assistive Device: Roller walker End of Activity Status: In bed;Instructed patient to request assist with mobilit y;Instructed patient to use call light;Nursing notified Transfer Comments: Pt veering towards left, not safe using RW. Sitting Balance: Standby assist Standing Balance: Minimal assist Gait Distance: 250 feet Gait: Assistance Level: Moderate assist;of 1st person;Minimal assist;of 2nd pers on Gait: Assistive Device: Roller walker Activity Tolerance Endurance: 3/5 Tolerates 25-30 Minutes Exercise w/Multiple Rests Cognition Overall Cognitive Status: Confused Expression: Increased Time for Expression;Expressive Aphasia Social Interaction: Increased Time to Adjust Problem Solving: Cueing to Sequence Task;Decreased Judgment/Safety;Direction Fol lowing Assist Memory: Unable to Recall Daily Events;Unable to Provide Accurate Prior Level of Functioning History Orientation: To Person Cognition Comment: Pt presents with motor planning and sequencing deficits durin g grooming tasks. Pt still unable to remember that he had surgery despite severa l reminders throughout session. UE AROM Overall BUE AROM WNL: Yes Coordination: Moderate Delay Grasp: R Weakened Comment: Pt favoring L hand, despite being R hand dominant. Upon exam BUE appear equal despite R hand being slightly weaker, which RN says is his baseline. Assessment Assessment: Decreased ADL Status;Decreased Cognition;Decreased Safe/Judg during ADL;Decreased Endurance;Decreased Self-Care Trans;Decreased High-Level ADLs;Decr eased Fine Motor Coordination;Visual Deficit Prognosis: Good;w/Cont OT s/p Acute Discharge Goal Formulation: Patient Comments: Patient presents with post operative pain as well as cognitive, visual , sensation, and strength deficits from stroke. Patient will benefit from contin ued therapy at time of d/c to address deficits. AM-PAC 6 Clicks Daily Activity Inpatient Putting on and taking off regular lower body clothes?: Total Bathing (Including washing, rinsing, drying): Total Toileting, which includes using toilet, bedpan, or urinal: Total Putting on and taking off regular upper body clothing: A Lot Taking care of personal grooming such as brushing teeth: A Lot Eating meals?: Total Daily Activity Raw Score: 8 Standardized (t-scale) score: 22.86 CMS 0-100% Score: 85.69 CMS G Code Modifier: CM Plan OT Frequency: 5x/week OT Plan for Next Visit: grooming tasks at sink; LE dressing; command following ADL Goals Patient Will Perform All ADL's: w/ Stand By Assist Functional Transfer Goals Pt Will Perform All Functional Transfers: w/ Stand By Assist OT Discharge Recommendations Recommendation: Inpatient setting;Recommend rehab medicine consult Therapist: SUKUMAR Randall/Bhupinder [id number] Date: 07/15/2021 PMENT SERVICE TECHNICIAN * Kely Hernandez, RD - 07/15/2021 1:23 PM EQUIPMENT SERVICE TECHNICIAN CLINICAL NUTRITION Clinical Nutrition Follow-Up Assessment Name: Chemo Jenkins : 1950 Age: 71 y.o. Admission Date: 07/12/2021 LOS: 3 days Recommendation: ADAT to goal regular diet. Please encourage high-kcal high-protein unit shakes: High Protein Shake Ideas ? Vanilla 1 vanilla [place] Instant Breakfast + 2 vanilla ice creams + 1 vanil la Boost ? Very Chocolate 1 chocolate [place] Instant Breakfast + 2 chocolate ice cream s + 1 chocolate Boost ? Chocolate Raspberry 3 pkg Beneprotein + 1 raspberry sherbet + 1 chocolate Dipesh t ? Chocolate Peanut Butter 2 pkg Beneprotein + 1 chocolate milk + 2 chocolate ic e creams + 2 pkg peanut butter ? [place] Shake 3 pkg Beneprotein + 1 vanilla ice cream + 1 peach Boost Breeze ? [place] Socrates 3 pkg Beneprotein + 2 orange sherbet + 1 vanilla Boost ? Chocolate Banana 3 pkg Beneprotein+ 1 chocolate milk + 2 chocolate ice creams + 1/2 banana ? Vanilla Peanut Butter Banana 3 pkg Beneprotein + 2 vanilla ice creams + 1 pkg peanut butter + 1/2 banana + 1 vanilla Boost ? [place] 1 strawberry [place]ene Instant Breakfast + 2 vanilla ice creams + 1 strawberry Boost ? Chocolate Peanut Butter Banana 3 pkg Beneprotein + 2 chocolate ice creams + 1 pkg peanut butter + 1/2 banana + 1 chocolate Boost ? Lemon Cream 2 pkg Beneprotein + 2 [place] ice lemon (partially melted) + 1 van illa ice cream + 1 whole milk ? [place] Slush 1 pkg Prosource + 1 pkg Beneprotein + 2 [place] ice gonzalez (parti ally melted) Comments: Mr. Jenkins is a 71yoM with PMH notable for metastatic urothelial carcinoma s/p r adical cystectomy/prostatectomy with ileal conduit (06/04/20) now with distal ob struction s/p loop colostomy (07/12). Followed up with pt and family members at [facility] today. Advanced to clear liquids 07/13 PM and full liquids 07/14 AM. They r eport pt has mainly been eating ice cream, already had 2 cups today and asking f or more. No N/V, no ostomy output yet. Encouraged continued good PO intake effor ts, however suggested protein drinks/shakes, milk, or cream-based soups to incre ase protein intake. Unsure of pt comprehension as he continued to ask for ice cr eam but family members verbalized understanding and will continue to assist with meals. Will continue to follow. Nutrition Assessment of Patient: Admit Weight: 64.8 kg (07/12 standing scale); Weight Change Since Admit: no new w eights BMI (Calculated): 21.72; BMI Categories Adult: Acceptable: 18.5-24.9 Pertinent Allergies/Intolerances: none noted Pertinent Labs: Ca 7.7; Pertinent Meds: famotidine, D5-1/2NS-KCl at 50 mL/hr Unintentional Weight Loss: down 6% x2 months, 15% x1 year Oral Diet Order: Full liquid Current Oral Intake: Inadequate Estimated Calorie Needs: 1771-0693 (30-35 kcal/kg) Estimated Protein Needs: 97 (1.5 g/kg) Malnutrition Assessment: Malnutrition present on admission ICD-10 code E44: Chronic illness/Moderate non-severe malnutrition Mild loss of muscle mass, Energy intake: < 75% of estimated energy requirement for 1 month or more Malnutrition Interventions: high-kcal high-protein shakes Nutrition Focused Physical Assessment: Loss of Subcutaneous Fat: No Muscle Wasting: Yes; Severity: Moderate; Location: Rastafari, Clavicle, Deltoid (di d not assess lower body) Edema: No Pressure Injury: No Nutrition Diagnosis: Inadequate oral intake Etiology: low appetite in setting of metastatic urothelial cancer Signs & Symptoms: weight loss 6% x2 months, diet recall Intervention / Plan: Monitor PO intakes, weights, labs, meds Reviewed small frequent meals and oral supplements Goals: Prevent further weight loss Time Frame: Throughout stay Status: Ongoing Avoid prolonged NPO status Time Frame: Within 72 hours Status: Met;New goal established Patient to consume >75% of meals/supplements Time Frame: Throughout stay Kely Hernandez, , RDN, LD, CNSC Available via [employer] [id number] PMENT SERVICE TECHNICIAN * Scott Garcia MD - 07/15/2021 1:16 PM EQUIPMENT SERVICE TECHNICIAN Daily Progress Note Today's Date: 07/15/2021 Name: Chemo Jenkins Admission Date: 07/12/2021 (LOS: 3 days) Assessment: 71M with metastatic bladder cancer s/p cystectomy and ileal conduit with peritoneal mets and distal obstruction s/p open loop sigmoid colostomy (1/2 4) Principal Problem: Colon obstruction (HCC) Active Problems: ITA (acute kidney injury) (HCC) Acute ischemic stroke (HCC) Acute right hemiparesis (HCC) Homonymous hemianopia, right Hypovolemia Encephalopathy Plan: S/p open loop colostomy- ERAS, full liquid diet, advance as tolerated Hypotension, acute blood loss anemia- resolved, s/p pRBC overnight Elevated cardiac enzymes- cardiology consult, no acute ischemia on EKG, echo wit h no ischemia, EF 70%, troponin plateaud Pain- multimodal pain control Possible small apical pneumothorax- bilateral breath sounds, hypotension resolve d, no O2 requirement Acute embolic stroke- Stroke team consulted, not a candidate for tpa; started on ASA 81mg and high intensity statin, A1C/lipid panel, carotid US, potential ALIYA in future Lines/Drains- No gonzalez (urostomy bag); arterial line discontinued; urostomy/colo stomy PPX- SCDs, ambulating when hemodynamically safe with PT/OT, chemoppx Transition to med/surg status Scott Garcia MD [id number] Subjective: No acute events, normotensive, does not complain of pain, no bowel function yet Objective: BP: (92-144)/(56-75) ABP: (93-143)/(42-63) Temp: [36.3 C (97.3 F)-36.7 C (98 F)] Pulse: [72-96] Respirations: [11 PER MINUTE-19 PER MINUTE] SpO2: [93 %-97 %] Lab Results Component Value Date/Time NA 140 07/15/2021 02:55 AM K 4.9 07/15/2021 02:55 AM CL 107 07/15/2021 02:55 AM CO2 24 07/15/2021 02:55 AM BUN 30 (H) 07/15/2021 02:55 AM CR 0.95 07/15/2021 02:55 AM MG 2.3 07/15/2021 02:55 AM PO4 2.0 07/15/2021 02:55 AM Lab Results Component Value Date/Time HGB 9.6 (L) 07/15/2021 02:55 AM HCT 28.7 (L) 07/15/2021 02:55 AM WBC 9.5 07/15/2021 02:55 AM PLTCT 100 (L) 07/15/2021 02:55 AM INR 1.1 03/31/2021 03:24 PM Lab Results Component Value Date/Time GLUPOC 118 (H) 07/14/2021 11:04 AM GLUPOC 116 (H) 07/12/2021 08:51 PM Physical Exam Constitutional: Appearance: He is normal weight. He is ill-appearing. HENT: Head: Normocephalic. Mouth/Throat: Mouth: Mucous membranes are moist. Eyes: General: No scleral icterus. Cardiovascular: Rate and Rhythm: Normal rate. Pulses: Normal pulses. Heart sounds: Normal heart sounds. Pulmonary: Effort: Pulmonary effort is normal. Abdominal: Comments: Midline incision CDI with dressing in place, RLQ urostomy in place with clear urine, LLQ colostomy in place with mild amount of bowel sweat; soft, nondistended, nontender Musculoskeletal: General: Normal range of motion. Cervical back: Neck supple. Skin: General: Skin is warm and dry. Neurological: General: No focal deficit present. Mental Status: He is alert and oriented to person, place, and time. Mental st atus is at baseline. Psychiatric: Mood and Affect: Mood normal. Behavior: Behavior normal. Thought Content: Thought content normal. Judgment: Judgment normal. Output by Drain (mL) 07/11/21 0701 - 07/11/21 1900 07/11/21 1901 - 07/12/21 0700 07/12/21 0701 - 07/12/21 1900 07/12/21 190 - 07/13/21 0700 07/13/21 0701 - 0707 Colostomy 07/12/21 1354 Upper Left Quadrant 80 Edema: No PMENT SERVICE TECHNICIAN * Latoya Pastrana, PT - 07/15/2021 12:00 PM EQUIPMENT SERVICE TECHNICIAN PHYSICAL THERAPY PROGRESS NOTE Name: Chemo Jenkins : 1950 Age: 71 y.o. Admission Date: 07/12/2021 LOS: 3 days Mobility Patient Turn/Position: Chair Progressive Mobility Level: Walk in hallway Distance Walked (feet): 25 ft Level of Assistance: Assist X2 Assistive Device: Walker Activity Limited By: Weakness;Dizziness;Fatigue;Mental Status Variability;Pain Subjective Significant hospital events: 71M with metastatic bladder cancer s/p cystectomy a nd ileal conduit with peritoneal mets and distal obstruction s/p open loop sigmo id colostomy (07/12) Mental / Cognitive Status: Alert;Disoriented;To Place;To Situation;To Time;Arous able;Withdrawn;Cooperative (flat affect, follows simple one step commands) Persons Present: Daughter;Spouse;RehabTechnician;Nursing Staff Pain: Patient complains of pain;Patient unable to rate pain Pain Location: Post-surgical Pain Interventions: Patient agrees to participate in therapy with modifications to session Comments: pt unable to be re-oriented despite multiple attempts, demos L prefere nce and R side inattention Ambulation Assist: Independent Mobility in Community with Endurance Limitations Patient Owned Equipment: None Home Situation: Lives with Family Type of Home: House Entry Stairs: 1-2 Stairs In-Home Stairs: No Stairs Comments: to note- patient unable to give his home setup and had to give in formation of home setup at the bedside as pt confused and stating wrong informat ion per his 07/14 Strength Strength Comment: increase in R side weakness today and R side inattenention' Bed Mobility/Transfer Bed Mobility: Rolling: Maximum Assist;x2 People Bed Mobility: Supine to Sit: Maximum Assist;x2 People Transfer Type: Sit to/from Stand Transfer: Assistance Level: To/From;Maximal Assist;x2 People Transfer: Assistive Device: Hand Hold Assist Transfers: Type Of Assistance: For Balance;For Strength Deficit;For Safety Consi derations Other Transfer Type: Stand to Sit Other Transfer: Assistance Level: To;Bed Side Chair;Moderate Assist Other Transfer: Assistive Device: Hand Hold Assist Other Transfer: Type Of Assistance: Verbal Cues;For Balance;For Strength Deficit ;For Safety Considerations End Of Activity Status: In Bed;Nursing Notified;Instructed Patient to Request As sist with Mobility;Instructed Patient to Use Call Light Balance Sitting Balance: Static Sitting Balance;Dynamic Sitting Balance;2 UE Support;Min imal Assist;Moderate Assist Standing Balance: Static Standing Balance;Dynamic Standing Balance;2 UE support; Moderate Assist;x2 People Gait Gait Distance: 25 feet Gait: Assistance Level: Maximal Assist Gait: Assistive Device: Roller Walker Gait: Descriptors: Antalgic;Decreased foot clearance RLE;Decreased foot clearanc e LLE;Forward trunk flexion;Pace: Slow;Pathway deviations;Loss of balance;Variab le step length Comments: pt falling to the right throughout gait, unable to correct his midline orientation with facilitation, UE support or auditory cueing Comments: pt incontient of stool through rectum Education Persons Educated: Patient Patient Barriers To Learning: Confusion;Cognitive Deficits;Pain Interventions: Repetition of Instructions;Family Education Teaching Methods: Verbal Instruction Patient Response: More Instruction Required Topics: Plan/Goals of PT Interventions;Use of Assistive Device/Orthosis;Mobility Progression;Up with Assist Only;Importance of Increasing Activity;Recommend Con tinued Therapy Assessment/Progress Impaired Mobility Due To: Decreased Strength;Impaired Balance;Cognitive Deficits ;Safety Concerns;Decreased Activity Tolerance;Post Surgical Changes Assessment/Progress: Should Improve w/ Continued PT AM-PAC 6 Clicks Basic Mobility Inpatient Turning from your back to your side while in a flat bed without using bed rails: A lot Moving from lying on your back to sitting on the side of a flatbed without using bedrails : A Lot Moving to and from a bed to a chair (including a wheelchair): A Lot Standing up from a chair using your arms (e.g. wheelchair, or bedside chair): A Lot To walk in hospital room: Total Climbing 3-5 steps with a railing: Total Raw Score: 10 Standardized (T-scale) Score: 28.13 Basic Mobility CMS 0-100%: 71.92 CMS G Code Modifier for Basic Mobility: CL Functional Stages Basic Mobility Score Interpretation 34-51 Limited Mobility Indoors: Your score suggests significant difficulty in mo ving about independently and the need for assistance. You may be able to move a bout in a small area of your home that has been adapted to eliminate safety haza rds. You may have difficulty moving from a sitting to standing position, climbi ng stairs and you may have a great deal of difficulty moving about outdoors and in the community. Goals Goal Formulation: With Patient/Family, Patient Unable to Participate in Goal Set ting Time For Goal Achievement: 5 days Patient Will Go Supine To/From Sit: Independently Patient Will Transfer Bed/Chair: Independently Patient Will Ambulate: Greater than 200 Feet, w/ Walker, w/ Stand By Assist Patient Will Go Up / Down Stairs: 1-2 Stairs, w/ Stand By Assist Plan Treatment Interventions: Mobility Training;Strengthening;Balance Activities;Endu jose Training Plan Frequency: 5 Days per Week PT Plan for Next Visit: increase ind with bed mob, transfers, gait and stairs PT Discharge Recommendations Recommendation: Inpatient setting Patient Currently Requires Equipment: Owns what is needed Therapist: Latoya Pastrana PT, DPT, MHAM Date: 07/15/2021 PMENT SERVICE TECHNICIAN * Marisol Sky RN - 07/15/2021 10:00 AM EQUIPMENT SERVICE TECHNICIAN Wound Ostomy Note NAME:Chemo Jenkins :1950 AGE: 71 y.o. ADMISSION DATE: 07/12/2021 DAYS ADMITTED: LOS: 3 days Reason for Consult/Visit: ostomy education Assessment/Plan: Principal Problem: Colon obstruction (HCC) Active Problems: ITA (acute kidney injury) (HCC) Acute ischemic stroke (HCC) Acute right hemiparesis (HCC) Homonymous hemianopia, right Hypovolemia Encephalopathy Education: Pt's and daughter at bedside. Pt became tearful because he didn 't understand that he had surgery and there is a new ostomy. Pt's was trang bauer for his ostomy at home. She doesn't have any questions at this time. Pt has been enrolled in [employer]. Ostomy Care: Suggested Pouching Supplies: Urostomy - 2 piece 13895, 68395 Colostomy - 1 piece Jhoana colostomy pouch 46487 or 5048 1. Change pouch with any sign of leaking 2. Clean skin with water only - no soap or wipes 3. If skin is broken down surrounding stoma, sprinkle stoma powder and wipe away the excess. 4. [place] no sting skin prep on powdered skin and let dry completely 5. Cut new pouch leaving 1/8"-1/4" of skin showing between the stoma and pouch 6. Warm new pouch in palm of hands 7. Ensure skin is dry and apply new pouch 8. Lay warm hand over pouch once it's applied Marisol Sky RN, BSN, CWON Wound Ostomy Nursing Consult Service Available via [employer] or [employer] [facility] 4219-4659 Office number [phone] Contact Team "Emt I/85" after 4:00pm -/weekends/holidays PMENT SERVICE TECHNICIAN * Myra Heredia RN - 07/14/2021 7:00 PM EQUIPMENT SERVICE TECHNICIAN I have reviewed the notes, assessments, and/or procedures performed by Murali pacheco, and concur with her/his documentation unless otherwise noted. PMENT SERVICE TECHNICIAN * Scott Garcia MD - 07/14/2021 4:18 PM EQUIPMENT SERVICE TECHNICIAN Daily Progress Note Today's Date: 07/14/2021 Name: Chemo Jenkins Admission Date: 07/12/2021 (LOS: 2 days) Assessment: 71M with metastatic bladder cancer s/p cystectomy and ileal conduit with peritoneal mets and distal obstruction s/p open loop sigmoid colostomy (06/20 4) Principal Problem: Colon obstruction (HCC) Active Problems: Acute ischemic stroke (HCC) Acute right hemiparesis (HCC) Homonymous hemianopia, right Plan: S/p open loop colostomy- ERAS, full liquid diet, bedside speech with no aspirati on Hypotension, acute blood loss anemia- resolved, s/p pRBC overnight Elevated cardiac enzymes- cardiology consult, no acute ischemia on EKG, echo wit h no ischemia, EF 70% Pain- multimodal pain control, currently not requiring pain medication Possible small apical pneumothorax- bilateral breath sounds, hypotension resolve d, no O2 requirement Acute embolic stroke- Stroke team consulted, not a candidate for tpa; started on ASA 81mg and high intensity statin, A1C/Lipid panel drawn; potentially from car otid or aortic arch, carotid US ordered by stroke team, recommend ALIYA but unsure he would tolerate that at this time Lines/Drains- No gonzalez (urostomy bag); arterial line (keep for HD monitoring); u rostomy/colostomy PPX- SCDs, ambulating when hemodynamically safe with PT/OT, restart chemoppx Continue inpatient management in surgical ICU for close hemodynamic monitoring Scott Garcia MD [id number] Subjective: Yesterday with acute stroke given weakness on right side and visual changes, unc hanged today Objective: BP: (78-113)/(42-66) ABP: (96-125)/(36-55) Temp: [36.2 C (97.2 F)-36.7 C (98 F)] Pulse: [58-78] Respirations: [9 PER MINUTE-18 PER MINUTE] SpO2: [93 %-97 %] Lab Results Component Value Date/Time NA 139 07/14/2021 03:11 AM K 4.7 07/14/2021 03:11 AM CL 107 07/14/2021 03:11 AM CO2 24 07/14/2021 03:11 AM BUN 41 (H) 07/14/2021 03:11 AM CR 1.31 (H) 07/14/2021 03:11 AM MG 2.5 07/14/2021 03:11 AM PO4 3.0 07/14/2021 03:11 AM Lab Results Component Value Date/Time HGB 8.5 (L) 07/14/2021 03:11 AM HCT 25.3 (L) 07/14/2021 03:11 AM WBC 10.6 07/14/2021 03:11 AM PLTCT 91 (L) 07/14/2021 03:11 AM INR 1.1 03/31/2021 03:24 PM Lab Results Component Value Date/Time GLUPOC 118 (H) 07/14/2021 11:04 AM GLUPOC 116 (H) 07/12/2021 08:51 PM Physical Exam Constitutional: Appearance: He is normal weight. He is ill-appearing. HENT: Head: Normocephalic. Mouth/Throat: Mouth: Mucous membranes are moist. Eyes: General: No scleral icterus. Cardiovascular: Rate and Rhythm: Normal rate. Pulses: Normal pulses. Heart sounds: Normal heart sounds. Pulmonary: Effort: Pulmonary effort is normal. Abdominal: Comments: Midline incision CDI with dressing in place, RLQ urostomy in place with clear urine, LLQ colostomy in place with mild amount of bowel sweat; soft, nondistended, nontender Musculoskeletal: General: Normal range of motion. Cervical back: Neck supple. Skin: General: Skin is warm and dry. Neurological: General: No focal deficit present. Mental Status: He is alert and oriented to person, place, and time. Mental st atus is at baseline. Psychiatric: Mood and Affect: Mood normal. Behavior: Behavior normal. Thought Content: Thought content normal. Judgment: Judgment normal. Output by Drain (mL) 07/11/21 0701 - 07/11/21 1900 07/11/21 190 - 07/12/21 0700 07/12/21 0701 - 07/12/21 1900 07/12/21 1901 - 07/13/21 0700 07/13/21 0701 - 0707 Colostomy 07/12/21 1354 Upper Left Quadrant 80 Edema: No PMENT SERVICE TECHNICIAN Associated attestation - Maurice Cao DO - 07/15/2021 10:32 AM EQUIPMENT SERVICE TECHNICIAN ATTESTATION I personally performed the campo portions of the E/M visit, discussed case with re sident and concur with resident documentation of history, physical exam, assessm ent, and treatment plan unless otherwise noted. Staff name: Maurice Cao DO Date: 07/15/2021 Ct shows embolic stroke Will ask stroke team to eval Cannot anticoagulate with recent surgery and bleeding * Vivi Stoddard MD - 07/14/2021 3:29 PM EQUIPMENT SERVICE TECHNICIAN CARDIOLOGY CONSULT PROGRESS NOTE Patient Name: Chemo Jenkins Age: 71 y.o. Sex: male Subjective: No acute events overnight. Pt denies new complaints today. Reviewed telemetry which showed normal sinus rhythm Review of Systems Cardiovascular: denies chest pain, palpitations Respiratory:denies cough, shortness of breath GI: denies nausea, vomiting, diarrhea, constipation Musculoskeletal: denies joint pain, weakness Objective: Vital Signs: Most Recent Vital Signs: 24 Ho ur Range BP: 113/66 (07/14 1500) Temp: 36.4 C (97.5 F) (07/14 1200) Pulse: 77 (07/14 1500) Respirations: 14 PER MINUTE (07/14 1500) SpO2: 95 % (07/14 1500) SpO2 Pulse: 77 (07/14 1500) BP: (78-113)/(42-66) ABP: (96-125)/(36-55) Temp: [36.2 C (97.2 F)-36.7 C (98 F)] Pulse: [58-78] Respirations: [9 PER MINUTE-18 PER MINUTE] SpO2: [93 %-99 %] Vitals: 07/12/21 1146 07/13/21 0700 Weight: 64.8 kg (142 lb 12.8 oz) 64.8 kg (142 lb 13.7 oz) Intake/Output Summary (Last 24 hours) at 07/14/2021 1529 Last data filed at 07/14/2021 1500 Gross per 24 hour Intake 3383.33 ml Output 1000 ml Net 2383.33 ml Stool Occurrence: 0 Physical Exam BP 113/66 (BP Source: Arm, Right Upper) | Pulse 77 | Temp 36.4 C (97.5 F) | Ht 1.727 m (5' 8") | Wt 64.8 kg (142 lb 13.7 oz) | SpO2 95% | BMI 21.72 kg /m General Appearance: no acute distress, full alert and oriented Neck Veins: neck veins are flat, neck veins are not distended Chest: lungs clear to auscultation, no rales, rhonchi, or wheezing Cardiac Rhythm: regular rhythm and normal rate Cardiac Auscultation: Normal S1 & S2, no S3 or S4, no rub Murmurs: no cardiac murmurs Extremities: no lower extremity edema Abdominal Exam: soft, non-tender, no masses, bowel sounds normal Medications Scheduled Meds:acetaminophen (TYLENOL EXTRA STRENGTH) tablet 1,000 mg, 1,000 mg, Oral, Q8H aspirin EC tablet 81 mg, 81 mg, Oral, QDAY [Held by Provider] atenoloL (TENORMIN) tablet 25 mg, 25 mg, Oral, QAM8 atorvastatin (LIPITOR) tablet 40 mg, 40 mg, Oral, QDAY famotidine (PEPCID) tablet 20 mg, 20 mg, Oral, QDAY gabapentin (NEURONTIN) capsule 300 mg, 300 mg, Oral, TID heparin (porcine) PF syringe 5,000 Units, 5,000 Units, Subcutaneous, Q8H naloxegoL (MOVANTIK) tablet 25 mg, 25 mg, Oral, QDAY(07) Continuous Infusions: dextrose 5 % & 0.45% NaCl with KCl 20 mEq/L infusion 50 mL/hr at 07/14/21 1409 PRN and Respiratory Meds:[Held by Provider] cetirizine QDAY PRN, ondansetron (ZO SUGAR) IV Q6H PRN, [Held by Provider] traMADoL Q6H PRN Lab/Radiology/Other Diagnostic Tests: Pertinent labs, imaging and telemetry reviewed. 24-hour labs: Hematology: Lab Results Component Value Date HGB 8.5 07/14/2021 HCT 25.3 07/14/2021 PLTCT 91 07/14/2021 WBC 10.6 07/14/2021 NEUT 85 07/09/2021 ANC 8.20 07/09/2021 ALC 0.40 07/09/2021 MARIBELL 9 07/09/2021 AMC 0.90 07/09/2021 ABC 0.10 07/09/2021 MCV 88.5 07/14/2021 MCHC 33.6 07/14/2021 MPV 9.2 07/14/2021 RDW 15.3 07/14/2021 , Coagulation: Lab Results Component Value Date INR 1.1 03/31/2021 , General Chemistry: Lab Results Component Value Date NA 139 07/14/2021 K 4.7 07/14/2021 CL 107 07/14/2021 GAP 8 07/14/2021 BUN 41 07/14/2021 CR 1.31 07/14/2021 GLU 105 07/14/2021 CA 7.5 07/14/2021 ALBUMIN 2.8 07/12/2021 LACTIC 0.9 07/13/2021 OBSCA 1.17 07/13/2021 MG 2.5 07/14/2021 TOTBILI 0.8 07/12/2021 , Enzymes: Lab Results Component Value Date AST 23 07/12/2021 ALT 8 07/12/2021 ALKPHOS 55 07/12/2021 , Cardiac markers: Lab Results Component Value Date TNI 0.60 07/14/2021 and Mg and PO4: Lab Results Component Value Date MG 2.5 07/14/2021 Assessment & Recs Principal Problem: Colon obstruction (HCC) Active Problems: Acute ischemic stroke (HCC) Acute right hemiparesis (HCC) Homonymous hemianopia, right #NSTEMI, type II suspected in the setting of hypotension #Coronary artery calcification Troponins are trending down Patient without active symptoms of angina. Echocardiogram initially showed normal left ventricular systolic function with o ut wall motion normalities We believe that elevation in troponin is most likely secondary to hypotension ep isode. Continue aspirin 81 mg daily, atorvastatin 40 mg daily for primary prevention of coronary disease given that he has coronary artery calcification. Lipid panel today showed an LDL of 34, triglyceride 101, HDL of 31. Recommend regadenoson MPI as an outpatient. #Acute ischemic stroke MRI revealed multifocal cerebral and cerebellar infarcts and a large left [employer] te rritory infarct which most likely represent combination of embolic and watershed infarcts during his a hypotension episode. He may have a remote history of atrial fibrillation but none of that has been ca ptured on telemetry Given the concern for watershed infarct would recommend bilateral duplex of the carotids. Recommend 30-day monitor after discharge. #Acute blood loss anemia #Postoperative hypotension #Metastatic urothelial carcinoma Loc [facility], Fellow, Cardiology Pager: [phone] I personally took the history, examined the patient and formulated the treatment plan. I discussed the above with the fellow. Rec outpatient reg thall. Carotid duplex in hospital and a 30 day event monitor at discharge. Will sign off, ple ase call with questions. PMENT SERVICE TECHNICIAN * Yaritza La, OT - 07/14/2021 3:00 PM EQUIPMENT SERVICE TECHNICIAN OCCUPATIONAL THERAPY PROGRESS NOTE Name: Chemo Jenkins : 1950 Age: 71 y.o. Admission Date: 07/12/2021 LOS: 2 days Mobility Patient Turn/Position: Weight shifted (Bed);Left Progressive Mobility Level: Walk in hallway Distance Walked (feet): 80 ft Level of Assistance: Assist X2 Assistive Device: Hand Held Activity Limited By: Mental Status Variability;Weakness Subjective Pertinent Dx per Physician: 71M with metastatic bladder cancer s/p cystectomy an d ileal conduit with peritoneal mets and distal obstruction s/p open loop sigmoi d colostomy (07/12). 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 Precautions: Falls (colstomy/urostomy) Pain / Complaints: Patient agrees to participate in therapy;Unable to rate Pain Location: Abdomen Objective Psychosocial Status: Willing and Cooperative to Participate Persons Present: RehabTechnician;Spouse;Son Home Living Type of Home: House Home Layout: One Level;Stairs to Enter w/o Rails (2-3 LETY) Bathroom Shower / Tub: Walk-in Shower Bathroom Toilet: Standard Home Equipment: Walker Prior Function Level Of [place]: Independent with ADLs and functional transfers;Independen t with homemaking w/ ambulation Lives With: Spouse Receives Help From: None Needed Other Function Comments: Patient poor historian, spouse provides subjective info rmation. Spouse reports patient independent without AD prior to surgery. Vision Current Vision: Wears Glasses All of the Time Visual History: Macular Degeneration Comment: Pt reports vision blurrier than normal. Dififcult to determine if defic its are visual vs. cognition. R side visual cut observed. Pt unable to state wha t color OT's gloves are. Hand/eye coordination significantly impaired. ADL's Where Assessed: Edge of Bed Grooming Assist: Maximum Assist Grooming Deficits: Teeth Care LE Dressing Assist: Maximum Assist LE Dressing Deficits: Don/Doff L Sock;Don/Doff R Sock Toileting Assist: Total Assist Toileting Deficits: (colostomy/urostomy) Comment: Pt requires step by step cueing to sequence teeth brushing, as well as hand over hand assist to grasp tooth brush and bring to mouth. Pt demonstrates s trength to bring hand to mouth but unable to feel the tooth brush in his R hand. After brushing hand, held toothpaste tube ~12 inches away at visual midline and cued pt to grab it with R hand. Pt reaches up to touch face instead. Multiple t rials with same result, pt able to state what the command is and says he can see it. Pt also unable to reach out with his L hand on command. ADL Mobility Bed Mobility: Supine to Sit: Moderate assist;x2 people Bed Mobility: Sit to Supine: Moderate assist;x2 people Transfer Type: Sit to stand Transfer: Assistance Level: Moderate assist;From;Bed Transfer: Assistive Device: Hand hold assist End of Activity Status: In bed;Instructed patient to request assist with mobilit y;Instructed patient to use call light;Nursing notified Standing Balance: Moderate assist;x2 people Gait Distance: 80 feet Gait: Assistance Level: Moderate assist;x2 people Gait: Assistive Device: Hand hold assist Gait Comments: Pt falling to right side, scissoring and shuffling feet. Pt has t rouble following auditory directions, navigates by following his . Activity Tolerance Endurance: 3/5 Tolerates 25-30 Minutes Exercise w/Multiple Rests Cognition Overall Cognitive Status: Confused Expression: Increased Time for Expression;Expressive Aphasia Social Interaction: Increased Time to Adjust Problem Solving: Cueing to Sequence Task;Decreased Judgment/Safety;Direction Fol lowing Assist Memory: Unable to Recall Daily Events;Unable to Provide Accurate Prior Level of Functioning History Orientation: To Person Cognition Comment: Pt presents with motor planning and sequencing deficits durin g grooming tasks. Pt still unable to remember that he had surgery despite severa l reminders throughout session. UE AROM Overall BUE AROM WNL: Yes Coordination: Moderate Delay Grasp: R Weakened Edema R Hand Edema: Mild Edema Sensory Overall Sensory: R UE Decreased/Impaired UE Strength / Tone Overall Strength / Tone: 4/5 Assessment Assessment: Decreased ADL Status;Decreased Cognition;Decreased Safe/Judg during ADL;Decreased Endurance;Decreased Self-Care Trans;Decreased High-Level ADLs;Decr eased Fine Motor Coordination;Visual Deficit Prognosis: Good;w/Cont OT s/p Acute Discharge Goal Formulation: Patient Comments: Patient presents with post operative pain as well as cognitive, visual , sensation, and strength deficits from stroke. Patient will benefit from contin ued therapy at time of d/c to address deficits. AM-PAC 6 Clicks Daily Activity Inpatient Putting on and taking off regular lower body clothes?: Total Bathing (Including washing, rinsing, drying): Total Toileting, which includes using toilet, bedpan, or urinal: Total Putting on and taking off regular upper body clothing: A Lot Taking care of personal grooming such as brushing teeth: A Lot Eating meals?: Total Daily Activity Raw Score: 8 Standardized (t-scale) score: 22.86 CMS 0-100% Score: 85.69 CMS G Code Modifier: CM Plan OT Frequency: 5x/week OT Plan for Next Visit: progress mobility/ADLs when cognition improves; further assess vision ADL Goals Patient Will Perform All ADL's: w/ Stand By Assist Functional Transfer Goals Pt Will Perform All Functional Transfers: w/ Stand By Assist OT Discharge Recommendations Recommendation: Inpatient setting;Recommend rehab medicine consult Therapist: Yaritza PATINO/Bhupinder [id number] Date: 07/14/2021 PMENT SERVICE TECHNICIAN * Baylee Sherman M.Div, [facility] - 07/14/2021 12:10 PM EQUIPMENT SERVICE TECHNICIAN Interior Design Director Note: Admit Date: 07/12/2021 I received an update on patient from his RN. Interior Design Director met with patient and his family (spouse Dorie & son Ector) per request for a solder making supervisor visit. I introduced spiritual care and offered supportive presence. Pt was not sure what had happened and notes he couldn't remember the surgery. Spouse and I offered words of support to pt. I confirmed that pt is Judaism. Pt asked me to pray for him. Family and I gath ered around pt and we prayed. Pt was tearful after the prayer. We continued to offer support noting that pt will be well cared for while at [facility]. Guillotine Trimmer will remain available as neede. The spiritual care team is available as needed, 09/01, through the amboy switchb oard ([phone]). For a response within 24 hours, please submit an order in O2 fo r a solder making supervisor consult. Date/Time: User: 07/14/2021 12:10 PM Baylee Sherman M.Div, [facility] PCU 3 PCU PMENT SERVICE TECHNICIAN * Otf Vines, RECEIVING WEIGHER-APPRENTICE INSTRUMENT TECHNICIAN - 07/14/2021 8:54 AM EQUIPMENT SERVICE TECHNICIAN Images from the original note were not included. Vascular Neurology Progress Note Admission Date: 07/12/2021 LOS: 2 days Principal Problem: Colon obstruction (HCC) Active Problems: Acute ischemic stroke (HCC) Acute right hemiparesis (HCC) Homonymous hemianopia, right Assessment: Chemo Jenkins is a 71 y.o. male with metastatic urothelial carcinoma s/p radical cystectomy/prostatectomy, remote history of pAFwho was admittedon for exploratory laparotomyand diverting loopostomy. Patient underw ent surgery on 07/12/21 with the finding of peritoneal metastasisandmesenteri c tethering. Postoperatively overnight, he was noted to be lethargic and hypoten siveBP 89/50 and transferred back to ICU for monitoring and management. He was originally stroke activated on the morning of 07/13 R visual field cut and mild R side weakness found by primary team/therapies. CT head completed and fou nd multifocal acute to subacute appearing bilateral cerebral and cerebellar infa rcts with a large left WORKDAY SENIOR ASSOCIATE territory infarct. At that time the stroke team was a ctivated on 07/13 the NIHSS was 7 for disorientation, R side drift, R homonymous hemianopia and L side extinction deficit. Elevated Creatinine prevented us from getting CTA head and neck. 07/13 MRI head: Revealed multifocal cerebral and cerebellar infarcts with a large left WORKDAY SENIOR ASSOCIATE territory infarct. This may represent a combination of embolic and ashely ershed infarcts. There is mild petechial hemorrhage within the left occipital in farct bed. Suspected Stroke Etiology: Possibly a combination of embolic and cerebral hypope rfusion in setting of hypotension. Current Exam: Alert, disoriented to time and place. He follows commands well. He has a flat affect. Gaze is midline, no nystagmus. R homonymous hemianopia. Mild L facial asymmetry. RUE 4/5 strength and RLE 4/5. LUE/LLE is 5/5. Questionable left side extinction deficit in lower extremity although this seems to fluctuate . He denies numbness at this time. 07/14 Recommendations: > Please obtain Bilateral Carotid Duplex, we have concern for carotid stenosis in setting of bilateral watershed infarcts. > Avoid hypotension, maintain SBP >110 if possible > If anticoagulation is indicated from cardiology standpoint, we would recommend holding anticoagulation for 14 days due to stroke burden and petechial hemorrhag e. > Please consult Rehab Medicine to evaluate for post-stroke rehab needs > Please discuss with Cardiology the possibility of placing an implantable cardiac loop recorder prior to discharge to monitor for arrhythmia/Afib > Stroke service to follow along Secondary Stroke Risk Optimization: - Blood Pressure Goal: <140/90 - Current BP meds: None - Echocardiogram on 07/13 was unremarkable, no intracardiac thrombus or valvular vegetation - Antiplatelet: 81mg ASA daily - Lipids: LDL is 34, at goal of <70, no indication for statin at this time - Blood Glucose: Hgb A1c is pending, with goal of <7 - Tobacco abstinence - PT/OT following - Follow up appointment with Neurology clinic will be requested Patient was seen and examined by myself and Dr. Lewis who agrees with the plan. Otf Vines APRN-ANN Vascular Neurology Subjective: No overnight events. Patient's exam appears stable. Discussed plan with primary RN and Voalted primary team on request for carotid duplex. Scheduled Meds:acetaminophen (TYLENOL EXTRA STRENGTH) tablet 1,000 mg, 1,000 mg, Oral, Q8H aspirin EC tablet 81 mg, 81 mg, Oral, QDAY [Held by Provider] atenoloL (TENORMIN) tablet 25 mg, 25 mg, Oral, QAM8 atorvastatin (LIPITOR) tablet 40 mg, 40 mg, Oral, QDAY famotidine (PEPCID) tablet 20 mg, 20 mg, Oral, QDAY gabapentin (NEURONTIN) capsule 300 mg, 300 mg, Oral, TID heparin (porcine) PF syringe 5,000 Units, 5,000 Units, Subcutaneous, Q8H naloxegoL (MOVANTIK) tablet 25 mg, 25 mg, Oral, QDAY(07) Continuous Infusions: dextrose 5 % & 0.45% NaCl with KCl 20 mEq/L infusion 50 mL/hr at 07/14/21 1109 lactated ringers infusion 1,000 mL (07/13/21 0836) PRN and Respiratory Meds:[Held by Provider] cetirizine QDAY PRN, ondansetron (ZO SUGAR) IV Q6H PRN, [Held by Provider] traMADoL Q6H PRN Vital Signs: Last Filed in 24 hours Vital Signs: 24 hour Range BP: 100/62 (07/14 1100) Temp: 36.4 C (97.5 F) (07/14 0800) Pulse: 67 (07/14 1100) Respirations: 14 PER MINUTE (07/14 1100) SpO2: 94 % (07/14 1100) SpO2 Pulse: 62 (07/14 1000) BP: (78-114)/(42-74) ABP: (96-124)/(36-53) Temp: [36.2 C (97.2 F)-36.7 C (98 F)] Pulse: [58-77] Respirations: [9 PER MINUTE-18 PER MINUTE] SpO2: [93 %-99 %] General physical exam: HEENT: normocephalic, eyes open with no discharge, nares patent, oropharynx is c lear with no lesions, palate intact CV: regular rate, distal pulses palpable, no dependent edema Chest: normal configuration, equal chest rise bilaterally Ab: soft, non-tender, no masses, no organomegaly Skin: no rashes or lesions Extended Neuro exam: MS: alert, flat affect, but disoriented to place/time Speech: fluent and clear CN II-XII intact, mild left lower face weakness Cerebellar exam: no ataxia, dysmetria, or nystagmus Strength: moves all 4 limbs spontaneously, 4/5 RUE/RLE and 5/5 in LUE/LLE Sensation: Reportedly intact to touch but possible extinction deficit LLE DTRs: 2/4 throughout, toes downgoing NIH Stroke Scale Item Scoring Definition Score 1a. LOC 0=alert and responsive 1=arousable to minor stimulation 2=arousable only to painful stimulation 3=reflex responses or unrousable 0 1b. LOC questions-as patients age and month. Must be exact. 0=both correct 1=one correct (or dysarthria, intubated, foreign language) 2=neither correct 2 1c. 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, hand packer and release non-paretic hand (other 1 step co mmands or mimic OK) 0=both correct (ok if impaired by weakness) 1=one correct 2=neither correct 0 2. Best Gaze-horizontal EOM by voluntary or Dolls 0=normal 1=partial gaze palsy (abnormal gaze in one or both eyes) 2=forced eye deviation or total paresis which cannot be overcome by Dolls 0 3. Visual Field-use visual threat if necessary. If monocular, score field of goo d eye 0=no visual loss 1=partial hemianopia, quadrantanopia, extinction 2=complete hemianopia 3=bilateral hemianopia or blindness 2 (R) 4. Facial Palsy-if stuporous, check symmetry of grimace to pain 0=normal 1=minor paralysis, flat NLF, asymm smile 2=partial paralysis (lower face=UMN) 3=complete paralysis (upper and lower face) 1 5. Motor Arm-arms outstretched 90 deg (sitting) or 45 deg (supine) for 10 second s. Encourage best effort. 0=no drift x 10 seconds 1=drift but doesnt hit bed 2=some antigravity effort, but cant sustain 3=no antigravity effort, but even minimal mvt counts 4=no movement at all X=unable to assess due to amputation, fusion, etc L/R 0/1 6. Motor Leg-raise leg to 30 degrees supine x 5 seconds 0=no drift x 5 seconds 1=drift but doesnt hit bed 2=some antigravity effort, but cant sustain 3=no antigravity effort, but even minimal mvt counts 4=no movement at all X=unable to assess due to amputation, fusion, etc L/R 0/1 7. Limb Ataxia-check finger-nose- finger; heel-johnson; and score only if out of pr oportion to paralysis 0=no ataxia (or aphasic, hemiplegic) 1=ataxia in upper or lower extremity 2=ataxia in upper AND lower extremity X=unable to assess due to amputation, fusion, etc L/R 0/0 8. Sensory-use safety pin. Check grimace or withdrawal if stuporous. Score only stroke- related losses 0=normal 1=mild-mod unilateral loss but patient aware of touch 9or aphasic, confused) 2=total loss, pt unaware of touch. Coma, bilateral loss 0 9. Best Language-describe cookie jar picture, name objects, read sentences. May use repeating, writing, stereognosis 0=normal 1=mild-mod aphasia (diff but partly comprehensible) 2=severe aphasia (almost no info exchanged) 3=mute, global aphasia, coma. No 1 step commands 0 10. Dysarthria-read list of words 0=normal 1=mild-mod; slurred but intelligible 2=severe; unintelligible or mute 1 11. Extinction/Neglect- simultaneously touch patient on both hands, show fingers in both visual shoemaker, ask about deficit, left hand 0=normal, none detected. ( visual loss alone) 1=neglects or extinguishes to double simult stimulation in any modality 2=profound neglect in more than one modality 0 Score 8 Lab/Radiology/Other Diagnostic Tests: Hematology: Lab Results Component Value Date HGB 8.5 07/14/2021 HCT 25.3 07/14/2021 PLTCT 91 07/14/2021 WBC 10.6 07/14/2021 NEUT 85 07/09/2021 ANC 8.20 07/09/2021 ALC 0.40 07/09/2021 MARIBELL 9 07/09/2021 AMC 0.90 07/09/2021 ABC 0.10 07/09/2021 MCV 88.5 07/14/2021 MCHC 33.6 07/14/2021 MPV 9.2 07/14/2021 RDW 15.3 07/14/2021 and General Chemistry: Lab Results Component Value Date NA 139 07/14/2021 K 4.7 07/14/2021 CL 107 07/14/2021 GAP 8 07/14/2021 BUN 41 07/14/2021 CR 1.31 07/14/2021 GLU 105 07/14/2021 CA 7.5 07/14/2021 ALBUMIN 2.8 07/12/2021 LACTIC 0.9 07/13/2021 OBSCA 1.17 07/13/2021 MG 2.5 07/14/2021 TOTBILI 0.8 07/12/2021 Pertinent radiological imaging has been reviewed by the Vascular Neurology team. MR brain: 1. 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 This appears represent a combinatio n of embolic and watershed infarcts. Gradient susceptibility within the right ca udate, left parietal lobe, and left greater than right occipital lobes, compatib le with petechial hemorrhagic conversion. 2. No midline shift or herniation. 3. Mild supratentorial white matter disease that is likely related to chronic microvascular ischemic changes in a patient this age. MRA head: 1. Occlusion of the left WORKDAY SENIOR ASSOCIATE at the level of the mid to distal P2 segment (corre sponding to the large left WORKDAY SENIOR ASSOCIATE territory infarct). 2. Otherwise patent major intracranial arteries without focal stenosis. Otf Vines APRN-APPRENTICE INSTRUMENT TECHNICIAN Vascular Neurology [id number] or Voalte PMENT SERVICE TECHNICIAN Associated attestation - Angela Lewis MD - 07/14/2021 12:08 PM EQUIPMENT SERVICE TECHNICIAN ATTESTATION I personally interviewed and examined the patient. I have reviewed the history, physical, impression and plan outlined by the Nurse Practitioner. Exam unchanged from yesterday, although he is more alert and interactive. He has right homonomous hemianopia, drift RUE and RLE. -MRI/MRA reviewed: MRI shows multifocal cerebral and cerebellar infarcts with a dominant left WORKDAY SENIOR ASSOCIATE infarct. Pattern looks both embolic and watershed. Gradient susceptibility in right caudate, left parietal, occipital lobes consistent with petechial hemorrhage. MRA iwht occluded left WORKDAY SENIOR ASSOCIATE at P2 segment. -Echo: technically difficult study, LVH, normal EF, no segmental wall abnormalit ies, normal size LA and RA My impression is embolic and watershed strokes. He has had periods of hypotensi on during this hospitalization. Remote hx of a fib but none on tele. He may be hypercoagulable from cancer. -order carotid dopplers to assess for stenosis since he has bilateral watershed infarcts. -aspirin -ALIYA when stable to look for embolic source. ALIYA was poor quality -avoid hypotension -would hold on anticoagulation for now if that is planned since he has petechial hemorrhage. He may benefit from anticoagulation in future if he is hypercoagul able from cancer. -consider loop recorder on dc. Staff name: Angela Lewis MD Date: 07/14/2021 * Latoya Pastrana, PT - 07/14/2021 8:20 AM EQUIPMENT SERVICE TECHNICIAN PHYSICAL THERAPY NOTE Name: Chemo Jenkins : 1950 Age: 71 y.o. Admission Date: 07/12/2021 LOS: 2 days Patient seen at the bedside. Demonstrates increased R side weakness from yester day, now with RLE weakness, R side sensory changes, RUE drift, R side tongue dev iation and ongoing aphasia and confusion. RN present, discussed concerns and fi ndings. RN discussing care and management with primary team. Will hold PT at t his time. Therapist: Latoya Pastrana PT, DPT, MHAM Date: 07/14/2021 PMENT SERVICE TECHNICIAN * Dwaine Lanier, RT - 07/13/2021 10:21 PM EQUIPMENT SERVICE TECHNICIAN RT Adult Assessment Note NAME:Chemo Jenkins :1950 AGE: 71 y.o. ADMISSION DATE: 07/12/2021 DAYS ADMITTED: LOS: 1 day RT Treatment Plan: Protocol Plan: Procedures PEP Therapy: Q4h while awake & PRN (lobar infiltrates on CXR) PAP: Q4h while awake & PRN Oxygen/Humidity: O2 to keep SpO2 > 92%, if not on any RT modality, D/C protocol if greater than 24 hours on room air SpO2: BID & PRN Vital Signs: Pulse: 77 RR: 16 PER MINUTE SpO2: 97 % O2 Device: Liter Flow: 1 Lpm O2%: Breath Sounds: clear and diminished Respiratory Effort: non labored PMENT SERVICE TECHNICIAN * Lilian Haque RN - 07/13/2021 9:52 PM EQUIPMENT SERVICE TECHNICIAN 2100: Dr. Shepherd notified of hypotension. BP sustained 80/30. 500cc bolus of LR given. Labs drawn. 2144: BP marked improvement. Pt to MRI with resource nurse x2. 2299: Pt returned to floor with RNx2, no acute events while in MRI, VSS. 0030: Dr. Shepherd notified of persistent hypotension. 1u PRBC ordered. 0215: 1u PRBC completed without any adverse events. BP improved PMENT SERVICE TECHNICIAN * Jenifer Flores RN - 07/13/2021 9:44 PM EQUIPMENT SERVICE TECHNICIAN Patient taken to MRI via bed on monitor with 2 Rn's. Patient monitored by Kiya leavitt RN during scan. PMENT SERVICE TECHNICIAN * Keanu Shepherd DO - 07/13/2021 9:26 PM EQUIPMENT SERVICE TECHNICIAN Brief Surgical Oncology Note Discussed elevated troponin with cardiology. Will continue to trend. No hep gtt at this time especially in the setting of an acute CVA. Will continue with ASA 8 1 mg. Atorvastatin added per cardiology recommendations Keanu Shepherd DO [id number] PMENT SERVICE TECHNICIAN * Lavern Lucas RN - 07/13/2021 12:59 PM EQUIPMENT SERVICE TECHNICIAN 0800: initial assessment, no acute changes from throughout the night. Patient pope d no complaint of pain, vision changes, or abnormal feeling in any extremities. 1100: at bedside verbally reported to PT and OT that her had a rosa ge in strength and vision. I went in to reassess the patient to check for any ch anges in extremity strength and the patient seemed to be better about moving arm s and legs. 1130: primary team paged to come and assess the patient at the bedside. 1830: MD notified of increasing size of colostomy PMENT SERVICE TECHNICIAN * Latoya Pastrana, PT - 07/13/2021 12:12 PM EQUIPMENT SERVICE TECHNICIAN PHYSICAL THERAPY ASSESSMENT Name: Chemo Jenkins : 1950 Age: 71 y.o. Admission Date: 07/12/2021 LOS: 1 day Mobility Patient Turn/Position: Supine Progressive Mobility Level: Walk in hallway Distance Walked (feet): 60 ft Level of Assistance: Assist X2 Assistive Device: Hand Held Activity Limited By: Lethargy;Mental Status Variability;Weakness Subjective Significant hospital events: 71M with metastatic bladder cancer s/p cystectomy a nd ileal conduit with peritoneal mets and distal obstruction s/p open loop sigmo id colostomy (07/12) Mental / Cognitive Status: Alert;Disoriented;To Place;To Situation;To Time;Coope rative;Inconsistent with Command Following;Confused (unable to re-orient) Persons Present: Spouse;Son;Occupational Therapist Pain: Patient complains of pain;Patient unable to rate pain Pain Location: Post-surgical Pain Interventions: Patient agrees to participate in therapy with modifications to session Comments: pt unable to be re-oriented despite multiple attempts, pt demos diffic ulty understanding simple one step commands and automatic commands inconsistentl y and demonstrates increased confusion today since sx from his baseline per his and son. The patient also states that his vision is worse, and demonstrate s L side preference when he is R handed. Shared information with bedside RN who relayed to the team. Ambulation Assist: Independent Mobility in Community with Endurance Limitations Patient Owned Equipment: None ( has a walker) Home Situation: Lives with Family Type of Home: House Entry Stairs: 1-2 Stairs In-Home Stairs: No Stairs Comments: to note- patient unable to give his home setup and had to give in formation of home setup at the bedside as pt confused and stating wrong informat ion per his ROM UE ROM WFL: Yes LE ROM WFL: Yes Strength Overall Strength: Generalized Weakness (R side hand packer weaker than the L) Posture/Neurological Posture/Neuro Comments: pt reports equal sensation and denies numbness or tingli ng Bed Mobility/Transfer Bed Mobility: Supine to Sit: Moderate Assist;x2 People Bed Mobility: Sit to Supine: Maximum Assist;x2 People Transfer Type: Sit to/from Stand Transfer: Assistance Level: To/From;Bed;Minimal Assist;x2 People Transfer: Assistive Device: Hand Hold Assist Transfers: Type Of Assistance: For Balance;For Strength Deficit;For Safety Consi derations End Of Activity Status: In Bed;Nursing Notified;Instructed Patient to Request As sist with Mobility;Instructed Patient to Use Call Light Balance Sitting Balance: Static Sitting Balance;Dynamic Sitting Balance;2 UE Support;Min imal Assist;Moderate Assist Standing Balance: Static Standing Balance;Dynamic Standing Balance;2 UE support; Moderate Assist;x2 People Gait Gait Distance: 60 feet Gait: Assistance Level: Moderate Assist;x2 People Gait: Assistive Device: Hand Hold Assist Gait: Descriptors: Antalgic;Decreased foot clearance RLE;Decreased foot clearanc e LLE;Forward trunk flexion;Pace: Slow;Pathway deviations;Loss of balance;Variab le step length Comments: pt falling to the right throughout gait, unable to correct his midline orientation with facilitation, UE support or auditory cueing Education Persons Educated: Patient Patient Barriers To Learning: Confusion;Cognitive Deficits;Pain Interventions: Repetition of Instructions;Family Education Teaching Methods: Verbal Instruction Patient Response: More Instruction Required Topics: Plan/Goals of PT Interventions;Use of Assistive Device/Orthosis;Mobility Progression;Up with Assist Only;Importance of Increasing Activity;Recommend Con tinued Therapy Assessment/Progress Impaired Mobility Due To: Decreased Strength;Impaired Balance;Cognitive Deficits ;Safety Concerns;Decreased Activity Tolerance;Post Surgical Changes Assessment/Progress: Should Improve w/ Continued PT AM-PAC 6 Clicks Basic Mobility Inpatient Turning from your back to your side while in a flat bed without using bed rails: A lot Moving from lying on your back to sitting on the side of a flatbed without using bedrails : A Lot Moving to and from a bed to a chair (including a wheelchair): A Lot Standing up from a chair using your arms (e.g. wheelchair, or bedside chair): A Lot To walk in hospital room: Total Climbing 3-5 steps with a railing: Total Raw Score: 10 Standardized (T-scale) Score: 28.13 Basic Mobility CMS 0-100%: 71.92 CMS G Code Modifier for Basic Mobility: CL Functional Stages Basic Mobility Score Interpretation 11.95 - 33 Limited Movement: Your score suggests you may have a lot of difficult y or are unable to get out of your bed, to stand for several minutes and/or to w alk short distances. You might have some difficulty completing the most basic mobility tasks including repositioning yourself in bed. Goals Goal Formulation: With Patient/Family, Patient Unable to Participate in Goal Set ting Time For Goal Achievement: 5 days Patient Will Go Supine To/From Sit: Independently Patient Will Transfer Bed/Chair: Independently Patient Will Ambulate: Greater than 200 Feet, w/ Walker, w/ Stand By Assist Patient Will Go Up / Down Stairs: 1-2 Stairs, w/ Stand By Assist Plan Treatment Interventions: Mobility Training;Strengthening;Balance Activities;Endu jose Training Plan Frequency: 5 Days per Week PT Plan for Next Visit: increase ind with bed mob, transfers, gait and stairs PT Discharge Recommendations Recommendation: Inpatient setting Patient Currently Requires Equipment: Owns what is needed Comments: if mentation improves back to baseline, pt may be able to progress to home Therapist Latoya Pastrana PT, DPT, [facility] Date 07/13/2021 PMENT SERVICE TECHNICIAN * Yaritza La, ANIVAL - 07/13/2021 10:33 AM EQUIPMENT SERVICE TECHNICIAN OCCUPATIONAL THERAPY ASSESSMENT NOTE Name: Cheom Jenkins : 1950 Age: 71 y.o. Admission Date: 07/12/2021 LOS: 1 day Mobility Patient Turn/Position: Supine Progressive Mobility Level: Walk in hallway Distance Walked (feet): 60 ft Level of Assistance: Assist X2 Assistive Device: Hand Held Activity Limited By: Lethargy;Mental Status Variability;Weakness Subjective Pertinent Dx per Physician: 71M with metastatic bladder cancer s/p cystectomy an d ileal conduit with peritoneal mets and distal obstruction s/p open loop sigmoi d colostomy (07/12) Precautions: Falls (colstomy/urostomy) Pain / Complaints: Patient agrees to participate in therapy;Unable to rate Objective Psychosocial Status: Willing and Cooperative to Participate Persons Present: Physical Therapist;Spouse;Son Home Living Type of Home: House Home Layout: One Level;Stairs to Enter w/o Rails (2-3 LETY) Bathroom Shower / Tub: Walk-in Shower Bathroom Toilet: Standard Home Equipment: Walker Prior Function Level Of [place]: Independent with ADLs and functional transfers;Independen t with homemaking w/ ambulation Lives With: Spouse Receives Help From: None Needed Other Function Comments: Patient poor historian, spouse provides subjective info rmation. Spouse reports patient independent without AD prior to surgery. Vision Current Vision: Wears Glasses Only for Reading Comment: Spouse reports patient has macular degeneration and wears glasses for r eading. Patient reports his vision appears worse today, however his confusion li mits his vision assessment. Spouse reports she feels like patient has only been able to follow her voice today instead of visually scanning, which is new. ADL's Where Assessed: Edge of Bed Eating Deficits: NPO LE Dressing Assist: Total Assist LE Dressing Deficits: Don/Doff R Sock;Don/Doff L Sock Toileting Assist: Total Assist Toileting Deficits: (colsotomy/urostomy) Comment: Pt with command following and processing deficits. Pt has trouble follo wing one step commands (touch therapist hand, take your glasses off). Pt does no t remember that he had surgery despite multiple reminders, keeps asking why his stomach hurts. ADL Mobility Bed Mobility: Supine to Sit: Moderate assist;x2 people Bed Mobility: Sit to Supine: Maximum assist;x2 people Transfer Type: Sit to stand Transfer: Assistance Level: Minimal assist;x2 people;From;Bed Transfer: Assistive Device: Hand hold assist End of Activity Status: In bed;Instructed patient to request assist with mobilit y;Instructed patient to use call light;Nursing notified Standing Balance: Moderate assist;x2 people Gait Distance: 60 feet Gait: Assistance Level: Moderate assist;x2 people Gait: Assistive Device: Hand hold assist Gait Comments: Pt falling to right side, scissoring and shuffling feet. Activity Tolerance Endurance: 3/5 Tolerates 25-30 Minutes Exercise w/Multiple Rests Cognition Overall Cognitive Status: Confused Expression: Increased Time for Expression Social Interaction: Increased Time to Adjust Problem Solving: Cueing to Sequence Task;Decreased Judgment/Safety;Direction Fol lowing Assist Memory: Unable to Recall Daily Events;Unable to Provide Accurate Prior Level of Functioning History Orientation: To Person;To Place (Thinks it's March of 1983) UE AROM Coordination: Moderate Delay Grasp: R Weakened Comment: Pt favoring L hand, despite being R hand dominant. Upon exam BUE appear equal despite R hand being slightly weaker, which RN says is his baseline. UE Strength / Tone Overall Strength / Tone: 4/5 Education Persons Educated: Patient/Family Topics: Role of OT, Goals for Therapy Goal Formulation: With Patient/Family;Patient Unable to Participate in Goal Sett ing Assessment Assessment: Decreased ADL Status;Decreased Cognition;Decreased Safe/Judg during ADL;Decreased Endurance;Decreased Self-Care Trans;Decreased High-Level ADLs;Decr eased Fine Motor Coordination;Visual Deficit Prognosis: Good;w/Cont OT s/p Acute Discharge Goal Formulation: Patient AM-PAC 6 Clicks Daily Activity Inpatient Putting on and taking off regular lower body clothes?: Total Bathing (Including washing, rinsing, drying): Total Toileting, which includes using toilet, bedpan, or urinal: Total Putting on and taking off regular upper body clothing: A Lot Taking care of personal grooming such as brushing teeth: A Lot Eating meals?: Total Daily Activity Raw Score: 8 Standardized (t-scale) score: 22.86 CMS 0-100% Score: 85.69 CMS G Code Modifier: CM Plan OT Frequency: 5x/week OT Plan for Next Visit: progress mobility/ADLs when cognition improves; further assess vision ADL Goals Patient Will Perform All ADL's: w/ Stand By Assist Functional Transfer Goals Pt Will Perform All Functional Transfers: w/ Stand By Assist OT Discharge Recommendations Recommendation: Inpatient setting Therapist: SUKUMAR Randall/Bhupinder [id number] Date: 07/13/2021 PMENT SERVICE TECHNICIAN * Indu Garcia MD - 07/13/2021 8:33 AM EQUIPMENT SERVICE TECHNICIAN Anesthesia Follow-Up Evaluation: Post-Procedure Day One Name: Chemo Jenkins : 1950 Age: 71 y.o. Sex: male Procedure Date: 07/12/2021 Procedure: Procedure(s) with comments: EXPLORATORY LAPAROTOMY, DIVERTING LOOP COLOSTOMY - 1 hr, REQUEST 1300 START Physical Assessment Height: 172.7 cm (68") Weight: 64.8 kg (142 lb 13.7 oz) Vital Signs (Last Filed in 24 hours) BP: 101/40 (07/13 699) Temp: 36.4 C (97.6 F) (07/13 0400) Pulse: 67 (07/13 699) Respirations: 12 PER MINUTE (07/13 699) SpO2: 99 % (07/13 699) SpO2 Pulse: 67 (07/13 699) Height: 172.7 cm (68") (07/13 699) Patient History Allergies Allergies Allergen Reactions Tegaderm BLISTERS Erythromycin RASH Readyprep Chg [Chlorhexidine Gluconate] RASH Medications Scheduled Meds:acetaminophen (TYLENOL EXTRA STRENGTH) tablet 1,000 mg, 1,000 mg, Oral, Q8H [Held by Provider] atenoloL (TENORMIN) tablet 25 mg, 25 mg, Oral, QAM8 ceFAZolin (ANCEF) IVP 2 g, 2 g, Intravenous, Q8H* famotidine (PEPCID) tablet 20 mg, 20 mg, Oral, QDAY gabapentin (NEURONTIN) capsule 300 mg, 300 mg, Oral, TID naloxegoL (MOVANTIK) tablet 25 mg, 25 mg, Oral, QDAY(07) Continuous Infusions: dextrose 5 % & 0.45% NaCl with KCl 20 mEq/L infusion lactated ringers infusion 1,000 mL (07/13/21 0551) PRN and Respiratory Meds:[Held by Provider] cetirizine QDAY PRN, ondansetron (ZO SUGAR) IV Q6H PRN, [Held by Provider] traMADoL Q6H PRN Diagnostic Tests Hematology: Lab Results Component Value Date HGB 8.6 07/13/2021 HCT 25.3 07/13/2021 PLTCT 122 07/13/2021 WBC 16.1 07/13/2021 NEUT 85 07/09/2021 ANC 8.20 07/09/2021 ALC 0.40 07/09/2021 MARIBELL 9 07/09/2021 AMC 0.90 07/09/2021 EOSA 1 07/09/2021 ABC 0.10 07/09/2021 MCV 88.9 07/13/2021 MCH 30.2 07/13/2021 MCHC 34.0 07/13/2021 MPV 8.5 07/13/2021 RDW 14.2 07/13/2021 General Chemistry: Lab Results Component Value Date NA 141 07/13/2021 K 4.9 07/13/2021 CL 105 07/13/2021 CO2 22 07/13/2021 GAP 14 07/13/2021 BUN 36 07/13/2021 CR 1.81 07/13/2021 GLU 126 07/13/2021 CA 8.4 07/13/2021 ALBUMIN 2.8 07/12/2021 LACTIC 1.3 07/13/2021 OBSCA 1.09 07/13/2021 MG 2.5 07/13/2021 TOTBILI 0.8 07/12/2021 PO4 5.7 07/13/2021 Coagulation: Lab Results Component Value Date INR 1.1 03/31/2021 Follow-Up Assessment Patient location during evaluation: floor Anesthetic Complications: Anesthetic complications: The patient did not experience any anesthestic complic ations. Pain: Score: 0 Management:adequate Level of Consciousness: sleepy but conscious Hydration:acceptable Airway Patency: patent Respiratory Status: acceptable and room air Cardiovascular Status:acceptable Regional/Neuroaxial: PMENT SERVICE TECHNICIAN * Scott Garcia MD - 07/13/2021 7:07 AM EQUIPMENT SERVICE TECHNICIAN Daily Progress Note Today's Date: 07/13/2021 Name: Chemo Jenkins Admission Date: 07/12/2021 (LOS: 1 day) Assessment: 71M with metastatic bladder cancer s/p cystectomy and ileal conduit with peritoneal mets and distal obstruction s/p open loop sigmoid colostomy (06/20 4) Principal Problem: Colon obstruction (HCC) Plan: S/p open loop colostomy- will continue NPO during resuscitation, sips w/ meds an d ice chips OK; ERAS protocol aside from diet; ostomy nursing for pouching; mova ntik until better ostomy output Hypotension, acute blood loss anemia- s/p TEG based blood product resuscitation overnight with , hypotension resolved this AM, arterial line monitoring i n place, strict I/O with urostomy bag, abdomen soft, nontender, nondistended, NC VF Elevated cardiac enzymes- cardiology consult, no acute ischemia on EKG, will obt ain troponin levels q6 to plateau, echo this AM; potential need for heparin gtt if believed to be from cardiac ischemia Pain- multimodal pain control, currently not requiring pain medication Possible small apical pneumothorax- bilateral breath sounds, hypotension resolve d, only 2L O2 requirement, will get follow up CXR this AM Lines/Drains- No gonzalez (urostomy bag); arterial line (keep for HD monitoring); u rostomy/colostomy PPX- SCDs, ambulating when hemodynamically safe with PT/OT, will hold chemoppx g iven blood loss anemia Continue inpatient management in surgical ICU for close hemodynamic monitoring Scott Garcia MD [id number] Subjective: Hypotensive and lethargic overnight, workup consistent with anemia and elevated cardiac enzymes, transferred to SICU for close HD monitoring via arteria line, T EG based product resuscitation (hypotension resolved), cardiology consult for en zymes; lethargy resolved this AM Objective: BP: (70-155)/(43-91) ABP: (84-118)/(38-49) Temp: [36.3 C (97.4 F)-37.1 C (98.8 F)] Pulse: [57-85] Respirations: [10 PER MINUTE-27 PER MINUTE] SpO2: [84 %-100 %] Lab Results Component Value Date/Time NA 141 07/13/2021 01:15 AM K 4.9 07/13/2021 01:15 AM CL 105 07/13/2021 01:15 AM CO2 22 07/13/2021 01:15 AM BUN 36 (H) 07/13/2021 01:15 AM CR 1.81 (H) 07/13/2021 01:15 AM MG 2.5 07/13/2021 01:15 AM PO4 5.7 (H) 07/13/2021 01:15 AM Lab Results Component Value Date/Time HGB 8.6 (L) 07/13/2021 02:42 AM HCT 25.3 (L) 07/13/2021 02:42 AM WBC 16.1 (H) 07/13/2021 02:42 AM PLTCT 122 (L) 07/13/2021 02:42 AM INR 1.1 03/31/2021 03:24 PM Lab Results Component Value Date/Time GLUPOC 116 (H) 07/12/2021 08:51 PM Physical Exam Constitutional: Appearance: He is normal weight. He is ill-appearing. HENT: Head: Normocephalic. Mouth/Throat: Mouth: Mucous membranes are moist. Eyes: General: No scleral icterus. Cardiovascular: Rate and Rhythm: Normal rate. Pulses: Normal pulses. Heart sounds: Normal heart sounds. Pulmonary: Effort: Pulmonary effort is normal. Abdominal: Comments: Midline incision CDI with dressing in place, RLQ urostomy in place with clear urine, LLQ colostomy in place with mild amount of bowel sweat; soft, nondistended, nontender Musculoskeletal: General: Normal range of motion. Cervical back: Neck supple. Skin: General: Skin is warm and dry. Neurological: General: No focal deficit present. Mental Status: He is alert and oriented to person, place, and time. Mental st atus is at baseline. Psychiatric: Mood and Affect: Mood normal. Behavior: Behavior normal. Thought Content: Thought content normal. Judgment: Judgment normal. Output by Drain (mL) 07/11/21 0701 - 07/11/21 1900 07/11/21 1901 - 07/12/21 0700 07/12/21 0701 - 07/12/21 1900 07/12/21 190 - 07/13/21 0700 07/13/21 0701 - 0707 Colostomy 07/12/21 1354 Upper Left Quadrant 80 PMENT SERVICE TECHNICIAN Associated attestation - Maurice Cao DO - 07/15/2021 10:32 AM EQUIPMENT SERVICE TECHNICIAN ATTESTATION I personally performed the campo portions of the E/M visit, discussed case with re sident and concur with resident documentation of history, physical exam, assessm ent, and treatment plan unless otherwise noted. Staff name: Maurice Cao DO Date: 07/15/2021 Bleeding overnight Given units * Lilian Haque, ERNST - 07/13/2021 1:27 AM EQUIPMENT SERVICE TECHNICIAN 2242: pt arrived on unit. LR infusing. Orders placed for cryo, 1u PRBC & platelets. CBC sent. Pt lethargic upon arrival, disoriented x3. Art line placed. 0000: pt hypotensive after products infused, orders placed for 1u FFP. Low UOP. Dr. Shepherd notified. 0100 labs placed. 0130: Dr. Shepherd notified of sustained hypotension. Orders placed for albumin. 0200: Sustained hypotension. Orders placed for 1u FFP. 0330: BP improved. Pt denies pain overnight. 2L NC placed after occasional desat episodes. Pt very lethargic overnight. Disoriented x3-4. Sleeping between cares PMENT SERVICE TECHNICIAN * Mae Mishra, ERNST - 07/12/2021 10:32 PM EQUIPMENT SERVICE TECHNICIAN Rapid Response called to transfer pt to SICU per Dr Shepherd .BP's remain to range 80-88/49-56. HR mid 70's-lower 80's. Pt just completed 1 unit of PRBC's. PMENT SERVICE TECHNICIAN * Mae Mishra RN - 07/12/2021 8:35 PM EQUIPMENT SERVICE TECHNICIAN Pt's BP at 2023 89/54, HR 80, RR 14, O2 sat [address] Bradford paged and upd ate on vitals. Pt lethargic, difficult to arouse. Stated that she would be up to see pt. At this time, BP 81/50. Rapid response was called. Dr Bradford at [facility]. PMENT SERVICE TECHNICIAN * Leny Bradford MD - 07/12/2021 8:30 PM EQUIPMENT SERVICE TECHNICIAN Brief Surgery Note: Patient seen and examined at 2033 for lethargy and hypotension. Surgery was notified at 2028 that patient was lethargic with BP 89/50 HR 75, O2 Sat 95% on RA. Patient seen and examined and found to be responsive with verbal stimuli and oriented to self but would only open eyes to painful stimuli. Denied pain, N/V, dizziness, headache. A rapid response had been called and arrived af ter surgery team to assist. Labs were drawn, POC glucose was 116, 1L LR bolus wa s administered and iStat ABG and Hgb were drawn. ABG was normal and iStat Hgb wa s 7.8. 1 URBC was administered without improvement in patient's mental status or BP. A TEG was drawn and the decision was made to move the patient to the SICU f or close monitoring and administration of further blood products. Physical Exam Constitutional: General: He is not in acute distress. Appearance: Normal appearance. HENT: Head: Normocephalic. Nose: Nose normal. Eyes: General: No scleral icterus. Cardiovascular: Rate and Rhythm: Normal rate and regular rhythm. Pulmonary: Effort: Pulmonary effort is normal. No respiratory distress. Abdominal: General: Abdomen is flat. There is no distension. Palpations: Abdomen is soft. Tenderness: There is no abdominal tenderness. There is no guarding or rebound . Comments: Ostomy appliance with stool and minimal blood. Ostomy patent, mucos a red with minimal mucosal bleeding. Incision with postop dressing in place, no strike through. Abdomen non distended. Musculoskeletal: General: Normal range of motion. Cervical back: Normal range of motion. Skin: General: Skin is warm and dry. Coloration: Skin is not jaundiced. Neurological: General: No focal deficit present. Mental Status: He is alert. Comments: Patient lethargic but arousable and opens eyes to verbal and painfu l stimuli. Oriented to self. Follows commands. Plan: Patient transported to SICU for invasive BP monitoring and administration of fur ther blood products. Patient with significant drop in Hgb from 13.3 to 7.8 on iS tat Hgb draw. 2 URBCs, 1FFP, 1 Platelets, 1 Cryoprecipitate administered to caleb ect TEG, 1.5 L LR, and 25g @ 25% albumin administered. EKG, CXR ordered. No foca l neurological deficit to warrant head CT. Abdomen soft, incisions without drain age, no sign of ongoing bleeding on exam. Patient continues to have 95% Sat O2 o n RA. Will CTM. Leny Bradford MD General Surgery Resident, PGY1 PMENT SERVICE TECHNICIAN * Tamika Ramires RN - 07/12/2021 6:40 PM EQUIPMENT SERVICE TECHNICIAN Pt colostomy bag is found to be erupting stool from the edge of the wafer onto t he incision dressing down the abdomen at approximately 1755, colostomy stoma is noted to have a bridge in place, fecal matter had saturated the dressing and loo sened the wafer for both the colostomy and urostomy at this time. Carefully rem rekha the secured portion of the colostomy ensuring not to damage, pull or dislod ge the bridge device, cleansed the skin, removed the gauze and tape from the dominick gical incision under the dressing a pool of liquid fecal matter is noted, cleans ed with mild soap and water, to remove all fecal matter, then cleansed with CHG wipes, trimmed the edge of a new colostomy wafer to prevent it from being over t he top of the incision site and adrianna. Secured colostomy and applied to outer bag portion of the appliance. Fecal matter had saturated the pt brief as well as the urostomy appliance, removed the urostomy and cleansed the area, reapplied a 2 piece urostomy appliance after trimmed to fit the stoma. Covered the incision with guaze and secured with hypafix tape, carefully to not occlude any part of the appliance to allow for changing and removal when needed. Pt denies pain at t his time, rates pain 0/10. PMENT SERVICE TECHNICIAN * Mike Avila RN - 07/12/2021 12:05 PM EQUIPMENT SERVICE TECHNICIAN Wound Ostomy Note NAME:Chemo Jenkins :1950 AGE: 71 y.o. ADMISSION DATE: 07/12/2021 DAYS ADMITTED: LOS: 0 days Reason for Consult/Visit: ostomy marking Assessment/Plan: Active Problems: * No active hospital problems. * Planned Procedure: Colostomy Surgeon: Nash Abdomen remains smooth in supine and seated positions. Sites x 1 marking with " * " in LUQ quadrant. Urostomy at RUQ Stoma red moist protrudes. [place] two piece flat #[id number] on no w. Our service will plan to follow up with patient post operatively and implement o stomy education if warranted. Brief discussion with patient about stoma and futu re inpatient stoma/pouch care. All questions from patient answered at this time. Will continue to follow. Mike Avila RN, BSN Wound/ Ostomy Nursing Consult Service Office: [phone] Pager: [phone] Wound/ Ostomy Team pager (after hours/ weekends): [phone] PMENT SERVICE TECHNICIAN documented in this encounter H&P Notes * Scott Garcia MD - 07/12/2021 12:12 PM EQUIPMENT SERVICE TECHNICIAN History and Physical Update Note Allergies: Tegaderm, Erythromycin, and Readyprep chg [chlorhexidine gluconate] Lab/Radiology/Other Diagnostic Tests: No pertinent labs Point of Care Testing: (Last 24 hours): Nutrition: No Dietitian Consult Wound: No Wound Consult Only change to plan is operative exposure. Will proceed with exploratory laparot khoa, colostomy creation, possible bowel resection Scott Garcia MD Pager [phone] PMENT SERVICE TECHNICIAN * Laina Cheney APRN-APPRENTICE INSTRUMENT TECHNICIAN - 07/09/2021 9:30 AM EQUIPMENT SERVICE TECHNICIAN Images from the original note were not included. Name: Chemo Jenkins : 1950 AGE: 71 y.o. DATE OF SERVICE: 07/09/2021 Subjective: Reason for Visit: New CA Pt Chemo Jenkins is a 71 y.o. male. Cancer Staging No matching staging information was found for the patient. History of Present Illness Chemo is a 71-year-old gentleman who was found to have bladder cancer in March 2020. 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 He underwent a rad ical cystectomy/prostatectomy with ileal conduit on 06/04/2020. He was followed with surveillance after this. He presented to an outside emergency room in mid March with abdominal pain and constipation. He underwent a CT scan at that time which showed severe rectal w all thickening with severe proctitis likely. He followed this up with a flexibl e sigmoidoscopy on 05/21/2021. The distal 10 cm of the rectum was very nodular, hard, and inflammatory but it did not look like true proctitis. This was biops ied and returned consistent with metastatic urothelial carcinoma. He met with m edical oncology here and plan to start chemotherapy. Unfortunately, over the 2 months he has had worsening ability to control bowel movements. He reports sudden urgency to go and very frequently he is unable to control this. On bad days this can occur all day. When he has bowel movements he sometimes can be sc reaming in pain. There are also days when he hardly has any bowel movements and he feels like he is backed up. For example, today he feels like he "ate a cow." When he does have bowel movements there are goo-like. He has avoided eating foods as this increases the frequency of having bowel movements. He has been us ing A&D or Vaseline on his perianal skin to help with the burning and pain. He does have some perianal bleeding. He has lost approximately 14 pounds in the last 2 months. Albumin from today was 4.2. His prior colonoscopy was "very clean" and this was in January 2021. He does very well with his urostomy. He has been unable to start chemotherapy due to continued fecal leakage and incontinence as this is worsening his weakness. Abnormal surgical history is an appendectomy. They live in [facility]. They have a daughter coming into town on . They will be here for 9 days as he was planning on getting chemotherapy today. 06/24/2021 - CT Chest: Small right pleural effusion associated with consolidation in the right lower lo be and underlying 7 mm subpleural nodule. Differential diagnosis includes infec tious and neoplastic etiologies. Please correlate clinically. Consider diagnos tic thoracentesis, PET/CT scan or follow-up in 3 months. 06/24/2021 - CT abd/pelv: 1. Postoperative radical cystectomy with ileal conduit urinary diversion surger y. The anatomy of the ureters is not well seen by this examination. 2. Thickening of the rectal wall consistent with documented metastasis. 3. Mild pelvic fluid in the pelvis. 4. Prominent 1 cm right deep pelvic lymph node. 05/21/2021 - Colonoscopy: A digital examination was performed which showed a thickened abnormal area in th e rectum. The scope was introduced and advanced to 60 cm and withdrawn. The di stal 10 cm of the rectum was very nodular, hard, and inflammatory, did not look like a true proctitis. It was more of an endoscopic appearance to be in my opin ion of an infiltrative mass. I will be concerned about the infiltrative prostat e or bladder cancer. The patient does have a history of bladder cancer just 1 y ear ago. In my opinion, this is a metastatic bladder cancer until proven otherw ise. Pathology: Interpretation: Metastatic carcinoma, staining suggesting urothelial carcinoma. 06/04/2020 - Radical Cystectomy/Prostatectomy with Ileal Conduit; BPLND Findings: 1. Bladder and prostate removed en bloc. Bilateral pelvic lymph node dissection 2. Watertight ureteroenteric anastomoses Pathology: A. Bladder and prostate, cystoprostatectomy: Residual high-grade papillary urothelial carcinoma, non-invasive. Adjacent urothelial carcinoma in-situ. Prostate and margins uninvolved. B. Lymph nodes (9), "Right pelvic lymph node", dissection: Negative for malignancy in 9 lymph nodes (0/9) C. Lymph nodes(11), "Left pelvic lymph node", dissection: Negative for malignancy in 11 lymph nodes (0/11) D. Lymph nodes (9), "Common lymph node", dissection: Negative for malignancy in 9 lymph nodes (0/9) Comment: URINARY BLADDER: Cystectomy and Anterior Exenteration CAP Version: 4.0.1.1 Procedure Radical cystoprostatectomy Tumor Site Right lateral wall, per clinical history Tumor Size Greatest dimension: 0.2 cm Histologic Type Papillary urothelial carcinoma, noninvasive Associated Epithelial Lesions None identified Histologic Grade Urothelial carcinoma, other variants, or divergent differentiation High-grade Tumor Configuration Papillary Tumor Extension Noninvasive papillary carcinoma Urothelial carcinoma in situ Margins Uninvolved by invasive carcinoma and carcinoma in situ/ noninvasive urothelial carcinoma Lymph-Vascular Invasion Not identified Pathologic Staging (pTNM) Primary Tumor (pT) pT2: Tumor invades muscularis propria (detrusor muscle) (based on prior biopsy [id number]) Regional Lymph Nodes (pN) pN0: No lymph node metastasis Number of Lymph Nodes Examined Specify: 29 Number of Lymph Nodes Involved (any size) Specify: 0 Extranodal Extension Not identified Distant Metastasis (pM) Not applicable Additional Pathologic Findings (select all that apply) Inflammation/regenerative changes The pathologic stage assigned here should be regarded as provisional, as it reflects only current pathologic data and does not incorporate full knowledge of the patient's clinical status and/or prior pathology. Medical History: Diagnosis Date Acid reflux did tx with zantac, now elevates pillows Arrhythmia PAF Arthritis Cancer (HCC) skin Hypertension Kidney stones Urothelial carcinoma (HCC) Surgical History: Procedure Laterality Date HX APPENDECTOMY 1970 HX VASECTOMY 1980 CATARACT REMOVAL Bilateral 2018 GLAUCOMA SURGERY Bilateral 2018 LASER EYE SURGERY Right 2020 CYSTOSCOPY 03/2020 TUMOR EXCISION 04/2020 bladder tumor excised Radical Cystectomy/Prostatectomy with Ileal Conduit; BPLND N/A 06/04/2020 Performed by Keith Trinidad MD at [facility] OR PERCUTANEOUS NEPHROSTOLITHOTOMY/ PYELOSTOLITHOTOMY - 2 CM OR LESS Right 11/12 Performed by Tristan Bowman MD at [facility] OR URETEROSCOPY WITH URETERAL STENT EXCHANGE Right 02/15/2021 Performed by Tristan Bowman MD at [facility] OR PERCUTANEOUS NEPHROSTOLITHOTOMY/ PYELOSTOLITHOTOMY - GREATER THAN 2 CM Left 04/29/2021 Performed by Kvng Rm MD at [facility] OR PERCUTANEOUS PLACEMENT NEPHROSTOMY CATHETER WITH NEPHROSTOGRAM/ URETEROGRAM/ IMAGE-GUIDANCE Left 04/29/2021 Performed by Kvng Rm MD at [facility] OR CYSTOURETHROSCOPY WITH URETEROSCOPY AND/ OR PYELOSCOPY - WITH REMOVAL/ MANIP ULATION CALCULUS Left 04/29/2021 Performed by Kvng Rm MD at [facility] OR No family history on file. Social History Socioeconomic History Marital status: Spouse name: Not on file Number of children: Not on file Years of education: Not on file Highest education level: Not on file Occupational History Not on file Tobacco Use Smoking status: Never Smoker Smokeless tobacco: Never Used Vaping Use Vaping Use: Never used Substance and Sexual Activity Alcohol use: Not Currently Drug use: Not Currently Sexual activity: Not on file Other Topics Concern Not on file Social History Narrative Not on file Vaping/E-liquid Use Vaping Use Never User Vaping/E-liquid Substances CBD No Nicotine No Flavored No THC No Review of Systems Constitutional: Negative for activity change, chills, fatigue, fever and unexpec donnell weight change. Gastrointestinal: Positive for constipation, diarrhea and rectal pain. Negative for abdominal distention, abdominal pain, anal bleeding, blood in stool, nausea and vomiting. Skin: Negative for color change. Neurological: Positive for weakness. Negative for dizziness and headaches. Psychiatric/Behavioral: Negative for agitation, behavioral problems and confusio n. The patient is not nervous/anxious. All other systems reviewed and are negative. Objective: acetaminophen (TYLENOL) 500 mg tablet Take one tablet by mouth every 6 hours as needed for Pain. Max of 4,000 mg of acetaminophen in 24 hours. (Patient shayy bauer differently: Take 500-1,000 mg by mouth every 6 hours as needed for Pain. Max of 4,000 mg of acetaminophen in 24 hours.) aspirin EC 81 mg tablet Take 81 mg by mouth at bedtime daily. Take with food . atenoloL (TENORMIN) 50 mg tablet Take 50 mg by mouth every morning. brimonidine (ALPHAGAN) 0.2 % ophthalmic solution INSTILL 1 DROP INTO RIGHT E YE TWICE DAILY cetirizine (ZYRTEC) 10 mg tablet Take 5 mg by mouth daily as needed. colestipoL (COLESTID) 1 gram tablet dexAMETHasone (DECADRON) 4 mg tablet Take two tablets by mouth daily. On Day s 2-4 of each cycle. dicyclomine (BENTYL) 10 mg capsule dorzolamide-timoloL (COSOPT) 2-0.5 % ophthalmic solution INSTILL 1 DROP INTO RIGHT EYE TWICE DAILY famotidine (PEPCID) 20 mg tablet Take 20 mg by mouth twice daily as needed. fish oil /omega-3 fatty acids (SEA-OMEGA) 340/1000 mg capsule Take 1 capsule by mouth daily. hydrocortisone acetate (ANUSOL-HC) 25 mg rectal suppository Insert or Apply 25 mg to rectal area as directed every 12 hours. ketorolac (ACULAR) 0.5 % ophthalmic solution latanoprost (XALATAN) 0.005 % ophthalmic solution INSTILL 1 DROP INTO RIGHT EYE AT BEDTIME [employer] [facility] [place] Dispense one month of supplies Dx Bladder Cancer C67.9 ondansetron (ZOFRAN ODT) 4 mg rapid dissolve tablet Dissolve one tablet by m outh every 6 hours as needed for Nausea or Vomiting. Place on tongue to dissolve . ondansetron HCL (ZOFRAN) 8 mg tablet Take one tablet by mouth every 8 hours as needed (nausea and vomiting). oxyCODONE (ROXICODONE) 5 mg tablet Take one tablet by mouth every 6 hours as needed for Pain polyethylene glycol 3350 (MIRALAX) 17 g packet Take one packet by mouth ky y as needed. prednisoLONE (PRELONE) 15 mg/5 mL oral syrup RHOPRESSA 0.02 % drop INSTILL 1 INTO RIGHT EYE AT BEDTIME senna/docusate (SENOKOT-S) 8.6/50 mg tablet Take one tablet by mouth daily a s needed. Vit A,C,G-Edbn-Kscivc (PRESERVISION AREDS) 14,320226-200 [id number] cap Take 2 capsules by mouth daily. Vitals: 07/09/21 1006 07/09/21 1007 BP: 132/75 Pulse: 63 Resp: 16 Temp: 36.4 C (97.5 F) SpO2: 99% Weight: 62.8 kg (138 lb 6.4 oz) PainSc: Zero Body mass index is 21.04 kg/m. Pain Score: Zero Fatigue Scale: 4 Pain Addressed: N/A Patient Evaluated for a Clinical Trial: No treatment clinical trial available fo r this patient. Eastern Cooperative Oncology Group performance status is 1, Restricted in physic ally strenuous activity but ambulatory and able to carry out work of a light or sedentary nature, e.g., light house work, office work. Physical Exam Vitals reviewed. Constitutional: General: He is not in acute distress. Appearance: He is well-developed. HENT: Head: Normocephalic and atraumatic. Nose: Nose normal. Eyes: General: Lids are normal. Conjunctiva/sclera: Conjunctivae normal. Pulmonary: Effort: Pulmonary effort is normal. No respiratory distress. Abdominal: Musculoskeletal: Cervical back: Normal range of motion. Neurological: Mental Status: He is alert and oriented to person, place, and time. Psychiatric: Speech: Speech normal. Behavior: Behavior normal. Thought Content: Thought content normal. Judgment: Judgment normal. Assessment and Plan: 71yo male with metastatic bladder cancer with invasion into the rectum causing f ecal incontinence, perianal excoriation, with mild obstructive symptoms. Metastatic Bladder Cancer with Invasion into the Rectum: - Discussed proceeding with a diverting colostomy. - We reviewed that this would not solve all of his symptoms but would drasticall y improve his symptoms. - We discussed that this area of invasion is likely driving his leakage, liquid stools, and feeling backed up. - Advised he use Calmoseptine/Desitin on his perianal skin. - His prior surgeries will complicate this. Will plan for LLQ or LUQ for ostomy creation. - Plan to proceed with laparoscopic colostomy. Dr. Cao discussed this with the patient today. - CONSENT DAY OF SURGERY. Weight Loss: - He is frail however, his Albumin is normal. - We are hopeful that a colostomy will allow him to eat more and regain strength . Plan: - RTC post operatively. The patient and family were allowed to ask questions and voice concerns; these w ere addressed to the best of our ability. They expressed understanding of what w as explained to them, and they agreed with the present plan. Patient has the frieda ne numbers for the [facility] and was instructed on how to contact us with an y questions or concerns. This patient was seen and dicussed with my collaborating provider Dr. Maurice Díaz aft DO. Laina Cheney MSN, RECEIVING WEIGHER, AGCNS-, AGPCNP- Advanced Practice Provider Colon and Rectal Surgery Surgical Oncology [place] for Dr. Cao, Dr. Morel and Dr. Danielle Pager: [phone] Available via [email or web address] Electronically signed by Laina Cheney, RECEIVING WEIGHER-APPRENTICE INSTRUMENT TECHNICIAN at 07/09/2021 11:59 AM EQUIPMENT SERVICE TECHNICIAN documented in this encounter Procedure Notes * Simba Gonzalez MD - 07/12/2021 11:14 PM EQUIPMENT SERVICE TECHNICIAN Brief Procedure Note Date: 07/12/20 Procedure: radial arterial line insertion Primary Surgeon: Dr. Cao Pressure Control Supervisor: Simba Gonzalez MD Indications: Need for hemodynamic monitoring and/or frequent arterial blood elieser bethel Description: The patient's left wrist and hand were prepped with chloroprep. A 1 6 Gauge arterial catheter was inserted into the radial artery. One needle stick was required. Appropriate position was confirmed with the presence of pulsatile, bright red blood return and appropriate wave form on the monitor. A sterile liset ssing was placed over the arterial line and the procedure was concluded. MD Simba Pope MD Department of Emergency Medicine Voalte preferred | Callback [phone] PMENT SERVICE TECHNICIAN * Scott Garcia MD - 07/12/2021 2:10 PM EQUIPMENT SERVICE TECHNICIAN Brief Operative Note Name: Chemo Jenkins is a 71 y.o. 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] Procedure(s): EXPLORATORY LAPAROTOMY, DIVERTING LOOP COLOSTOMY Surgeon(s) and Role: * Maurice Cao DO - Primary * Scott Garcia MD - Resident - Assisting Findings: Peritoneal metastasis, mesenteric tethering Estimated Blood Loss: 20ml Specimen(s) Removed/Disposition: * No specimens in log * Complications: None Implants: ostomy bridge Drains: colostomy, urostomy Disposition: PACU - stable Scott Garcia MD Pager [phone] PMENT SERVICE TECHNICIAN documented in this encounter Consult Notes * Anju Mcgowan MD - 07/16/2021 3:26 PM EQUIPMENT SERVICE TECHNICIAN Associated Order(s): CONSULT ADULT PALLIATIVE CARE PROVIDER PALLIATIVE CARE INPATIENT NOTE Name: Chemo Jenkins : Age: 71 y.o. Admission Date: 07/12/2021 LOS: 4 days ASSESSMENT Chemo Jenkins is a 71 y.o. male with metastatic urothelial carcinoma s/ p radical cystectomy/prostatectomy in 2019, remote history of pAF who was admitt ed on 07/12/2021 for exploratory laparotomy and diverting loop ostomy due to symp toms from suspected proctitis, to try to help patient feel better/control bowel function/improve appetite and energy level in order to try to do better with eva atment.. Patient underwent surgery on 07/12/21 with the finding of peritoneal met astasis and mesenteric tethering. Postoperatively overnight, he was noted to be lethargic and hypotensive BP 89/50 and transferred back to ICU for monitoring an d management. He was stroke activated on the morning of 07/13 R visual field cut and mild R side weakness. CT head completed and found multifocal acute to subac graciela appearing bilateral cerebral and cerebellar infarcts with a large left WORKDAY SENIOR ASSOCIATE t erritory infarct. MRI 07/13 showed multifocal cerebral and cerebellar infarcts wi th a dominant large left WORKDAY SENIOR ASSOCIATE territory infarct. He sees Dr Louie as his oncologist and was discussing treatment with chemothera py just prior to his admission. Advance Care Planning: Code Status: Full Code - tried to discuss, Dorie stopped me in the middle o f the sentence when she realized what I was about to ask and told us she does no t wish to discuss code status at this time-- "Im not ready to go there yet. Im n ot ready to give up." tried to reframe but it was clear that was going to be too stressful to try to handle right now. This will need to be sensitively and comp assionately readdressed as able, patient would be highly likely to in the nd dst of the trauma of a code- we dont want to do anything that would contribute t o such suffering, but also dont want to traumatize the family with these discuss ions when they are not ready for them. Identified Health Care Decision Maker: Dorie () Potential Disposition: Too soon to determine PLAN #Metastatic Urothelial Cancer with peritoneal carcinomatosis- the cancer has pro gressed more than oncology had understood it to be prior to the surgery #Acute bilateral CVAs #Impaired mobility #Cognitive deficits s/p CVAs - poor short term memory, discussed not repeatedly telling patient about his condition and prognosis as he wont remember and will s uffer it as new information each time we tell him. Discussion: We met with Chemo, his Dorie, and his son Ector at the bedside. We introdu evelyn the concept of palliative care and the role that we will play in his care te am. We discussed that we will help with symptoms as well as facilitate communic ation with his physicians to assist with creating a plan of care that fits his g oals. Chemo has gone through some significant changes over the past couple of m onths since the proctitis which turned out to be metastatic urothelial cancer an d now peritoneal carcinomatosis and surgery complicated by multiple CVAs. Just a couple of weeks ago, they saw Dr. Louie and were planning for chemotherapy. He had the diverting colostomy to help with symptoms. Dr. Louie called while w e were in the room so we could discuss the situation all together-- We discussed possible treatment options including rehab, possibly further chemotherapy IF he is able to regain functional status, or focusing our efforts on his comfort if treatment options would shorten his life or cause him to be more ill with what t abel he has left. Need more time to see if patient is able to make functional imp rovements, they would like the rehab assessment to continue, to see if he would be a candidate for that, to see how much improvement he may be able to make. The y understand that may not be possible but need his body to tell us over the comi ng several days to few weeks. /son appreciative of Liban's call and our sup port in the communication We offered our support and will continue to assist Chemo and his family during t his hospitalization. RECOMMENDATIONS: Code status: Full Code Continue current ICU level of care pending further input from oncology team regarding treatment options SUBJECTIVE CC/Reason for Visit: Goals of Care History of Present Illness: Chemo Jenkins is a 71 y.o. male with a history of urothelial cancer s/p resection with recent recurrence and peritoneal carcinomatosis that was diagnose d this hospitalization. He initially presented for a scheduled exploratory lapa roscopy with plan for diverting colostomy secondary to what was thought to be pr octitis but was found to be metastatic urothelial cancer. Postoperatively he nixon ffered multiple strokes including a sizable WORKDAY SENIOR ASSOCIATE stroke. Chemo denies any curren t symptoms including abdominal pain, chest pain, shortness of air, nausea, or vo miting. He is resting during most of our visit with his family but did wake up briefly. He is able to answer simple questions with short answers. His family states that he has poor memory at this time after the strokes. We spoke with Dr Miguelina Louie on speaker phone with the patient's family members regarding treatment options that would be remaining. Given the patient's current debility and statu s, it is unlikely that he will be a candidate for further treatment for his urot helial cancer. Medical History: Diagnosis Date Acid reflux did tx with zantac, now elevates pillows Arrhythmia PAF Arthritis Cancer (HCC) skin Hypertension Kidney stones Urothelial carcinoma (HCC) Surgical History: Procedure Laterality Date HX APPENDECTOMY 1970 HX VASECTOMY 1980 CATARACT REMOVAL Bilateral 2018 GLAUCOMA SURGERY Bilateral 2018 LASER EYE SURGERY Right 2020 CYSTOSCOPY 03/2020 TUMOR EXCISION 04/2020 bladder tumor excised Radical Cystectomy/Prostatectomy with Ileal Conduit; BPLND N/A 06/04/2020 Performed by Keith Trinidad MD at [facility] OR PERCUTANEOUS NEPHROSTOLITHOTOMY/ PYELOSTOLITHOTOMY - 2 CM OR LESS Right 11/12 Performed by Tristan Bowman MD at [facility] OR URETEROSCOPY WITH URETERAL STENT EXCHANGE Right 02/15/2021 Performed by Tristan Bowman MD at [facility] OR PERCUTANEOUS NEPHROSTOLITHOTOMY/ PYELOSTOLITHOTOMY - GREATER THAN 2 CM Left 04/29/2021 Performed by Kvng Rm MD at [facility] OR PERCUTANEOUS PLACEMENT NEPHROSTOMY CATHETER WITH NEPHROSTOGRAM/ URETEROGRAM/ IMAGE-GUIDANCE Left 04/29/2021 Performed by Kvng Rm MD at [facility] OR CYSTOURETHROSCOPY WITH URETEROSCOPY AND/ OR PYELOSCOPY - WITH REMOVAL/ MANIP ULATION CALCULUS Left 04/29/2021 Performed by Kvng Rm MD at [facility] OR EXPLORATORY LAPAROTOMY, DIVERTING LOOP COLOSTOMY N/A 07/12/2021 Performed by Maurice Cao DO at [facility] OR Social History Tobacco Use Smoking status: Never Smoker Smokeless tobacco: Never Used Vaping Use Vaping Use: Never used Substance Use Topics Alcohol use: Not Currently Drug use: Not Currently Social History Social History Narrative Not on file 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 No pertinent family history. No family status information on file. No family history of malignancies ROS: Review of Systems Cardiovascular: Negative for chest pain. Gastrointestinal: Negative for abdominal pain, nausea and vomiting. Musculoskeletal: Negative for back pain. All 12 systems otherwise negative. OBJECTIVE Blood pressure 130/88, pulse 78, temperature 36.8 C (98.2 F), height 172.7 c m (68"), weight 64.8 kg (142 lb 13.7 oz), SpO2 95 %. Physical Exam Constitutional: General: He is not in acute distress. Appearance: He is ill-appearing. HENT: Head: Normocephalic and atraumatic. Nose: Nose normal. Mouth/Throat: Mouth: Mucous membranes are dry. Eyes: General: No scleral icterus. Conjunctiva/sclera: Conjunctivae normal. Cardiovascular: Rate and Rhythm: Normal rate and regular rhythm. Pulses: Normal pulses. Pulmonary: Effort: Pulmonary effort is normal. Breath sounds: Normal breath sounds. Abdominal: General: Abdomen is flat. Palpations: Abdomen is soft. Comments: Urostomy and colostomy in place Surgical site C/D/I Musculoskeletal: Right lower leg: No edema. Left lower leg: No edema. Skin: General: Skin is warm and dry. Capillary Refill: Capillary refill takes less than 2 seconds. Neurological: Mental Status: He is alert. Comments: Alert, slowed speech, answers simple questions appopriately Psychiatric: Mood and Affect: Mood normal. Behavior: Behavior normal. Current PPS%: 50% Lab Results: CBC Lab Results Component Value Date/Time WBC 9.1 07/16/2021 04:40 AM HGB 10.1 (L) 07/16/2021 04:40 AM PLTCT 109 (L) 07/16/2021 04:40 AM Lab Results Component Value Date/Time NEUT 85 (H) 07/09/2021 09:19 AM ANC 8.20 (H) 07/09/2021 09:19 AM Chemistries Lab Results Component Value Date/Time NA 136 (L) 07/16/2021 04:40 AM K 5.1 07/16/2021 04:40 AM BUN 19 07/16/2021 04:40 AM CR 0.77 07/16/2021 04:40 AM GLU 103 (H) 07/16/2021 04:40 AM Lab Results Component Value Date/Time CA 7.4 (L) 07/16/2021 04:40 AM PO4 1.7 (L) 07/16/2021 04:40 AM ALBUMIN 2.8 (L) 07/12/2021 09:15 PM TOTPROT 5.1 (L) 07/12/2021 09:15 PM ALKPHOS 55 07/12/2021 09:15 PM AST 23 07/12/2021 09:15 PM ALT 8 07/12/2021 09:15 PM TOTBILI 0.8 07/12/2021 09:15 PM GFR 50 (L) 04/30/2021 05:31 AM GFRAA >60 04/30/2021 05:31 AM Other Pertinent Diagnostic Results: MRI/MRA Head WO Contrast 07/13/21 IMPRESSION MR brain: 1. 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 This appears represent a combination of embolic and watershed infarcts. Gradient susceptibility within the right caudate, left parietal lobe, and left greater than right occipital lobes, compatible with petechial hemorrhagic conversion. 2. No midline shift or herniation. 3. Mild supratentorial white matter disease that is likely related to chronic microvascular ischemic changes in a patient this age. MRA head: 1. Occlusion of the left WORKDAY SENIOR ASSOCIATE at the level of the mid to distal P2 segment (corresponding to the large left WORKDAY SENIOR ASSOCIATE territory infarct). 2. Otherwise patent major intracranial arteries without focal stenosis. By my electronic signature, I attest that I have personally reviewed the images for this examination and formulated the interpretations and opinions expressed in this report Vivi Pisano HPM Fellow Available on [employer] ATTESTATION I personally performed the campo portions of the E/M visit, discussed case with re sident and concur with resident documentation of history, physical exam, assessm ent, and treatment plan unless otherwise noted. total time in pt assessment, dis cussion and coordination with surg onc team, patient//son, Dr. Louie re: pt condition, goals of care and treatment options 70 minutes >50% enrollment counselor and coordination of care Staff name: Anju Mcgowan MD Date: 07/16/2021 C Danyel Guerin MD - 07/15/2021 9:45 AM EQUIPMENT SERVICE TECHNICIAN Associated Order(s): CONSULT REHABILITATION MEDICINE PHYSICIAN Physical Medicine & Rehabilitation Consult Service Date of Service: 07/15/2021 Chemo Jenkins is a 71 y.o.. : 1950 Financial Class: Payor: MEDICARE / Plan: MEDICARE PART A AND B / Product Type: M edicare / Date of Admission: 07/12/2021 Referring Physician: Muarice Cao DO Reason for Consult: evaluate for Post-Acute Rehab/Placement Precautions: Fall Assessment & Plan: Principal Problem: Colon obstruction (HCC) Active Problems: ITA (acute kidney injury) (HCC) Acute ischemic stroke (HCC) Acute right hemiparesis (HCC) Homonymous hemianopia, right Hypovolemia Encephalopathy Multifocal embolic strokes Left WORKDAY SENIOR ASSOCIATE stroke Gait abnormality Impaired mobility/ADLs Impaired transfers Cognitive Deficits Chemo Jenkins is a 71 y.o. year old male admitted to [facility] on 07/12/2021 with the following issues: Multifocal embolic and left WORKDAY SENIOR ASSOCIATE strokes with right hemiparesis, cognitive defici ts Impairments: aphasia, cognitive impairments, communication deficits, dysphagia, sensory loss and weakness Activity Limitations: eating, grooming, bathing, dressing - upper, dressing - l ower, toileting, transfers and ambulation Participation Restrictions: unable to return home safely Family / Patient Dispositional Goals: return home with family assistance Overall Functional Goals Gait and mobility supervision to standby assist Transfers standby assist to assist of 1 Upper body dressing standby assist Lower body dressing standby assist assist of 1 Toileting standby assist Bathing standby assist Cognition / Communication Overall goal is Setup or clean-up assistance and Speec h therapy will evaluate and treat cognition and communication deficits and asses s for safe swallow Recommendations: Post-acute care rehabilitation needs: acute inpatient rehabilitation Patient s medical complexity warrants daily physician oversight and functional goals con sistent with intensive rehabilitation in acute inpatient rehabilitation. The patient certainly has significant medical complexity in the setting of multi focal embolic and left WORKDAY SENIOR ASSOCIATE stroke with associated aphasia, cognitive deficits, d ysphagia, right-sided hemiparesis to warrant specialized stroke rehabilitation a t an acute inpatient rehab facility. Barriers/Facilitators: Barriers: High burden of care Facilitators: good family / social support, patient motivation and improving str ength / endurance Rehabilitation Prognosis: Good Tolerance for three hours of therapy a day: Good Impaired gait/mobility/transfers: The patient will benefit from continued work with PT to address mobility deficit s Impaired ADLs: The patient will benefit from ongoing OT to address functional deficits Thank you for this consultation. Please contact the Rehab Medicine consultation service with questions or concerns. Danyel Sosa MD History of Present Illness: Hospital Course: Mr. Jenkins is a 71 y.o. male with PMH of bladder cancer diagnos ed in March 2020 status post TURP, status post radical cystectomy/prostatectom y with ileal conduit in May 2020, complicating metastatic bladder cancer wi th invasion into the rectum with colonic obstruction presenting to [facility] on 07/12 for scheduled exploratory laparotomy with diverting loo p colostomy with findings of peritoneal metastasis and mesenteric tethering. Pa sloan had complicating postoperative hypotension and cardiology was consulted fo r concern for NSTEMI ACS versus demand ischemia with elevated cardiac enzymes. Patient was stroke activated in 07/13 for vision changes and right-sided weakness , CT and MRI head performed revealing multifocal acute to subacute bilateral cer ebellar and cerebral infarcts with large left WORKDAY SENIOR ASSOCIATE territory infarct likely embol ic in nature and complicating cerebral hyperperfusion in the setting of postoper ative hypotension. The primary team has consulted PT and OT, and will continue working with therapi es to address functional and mobility deficits, rehab is now consulted for post- acute rehab/placement recommendations. The patient's family/social support consists of: Patient was previously independ ent for commute distance mobility and self-cares though with endurance limitatio ns, living in a home with 3 steps to enter and 1 level thereafter. He lives wit h a spouse who can provide consistent supervision, however limited functional as sistance. Medical History: Diagnosis Date Acid reflux did tx with zantac, now elevates pillows Arrhythmia PAF Arthritis Cancer (HCC) skin Hypertension Kidney stones Urothelial carcinoma (HCC) Surgical History: Procedure Laterality Date HX APPENDECTOMY 1970 HX VASECTOMY 1979 CATARACT REMOVAL Bilateral 2018 GLAUCOMA SURGERY Bilateral 2018 LASER EYE SURGERY Right 2020 CYSTOSCOPY 03/2020 TUMOR EXCISION 04/2020 bladder tumor excised Radical Cystectomy/Prostatectomy with Ileal Conduit; BPLND N/A 06/04/2020 Performed by Keith Trinidad MD at [facility] OR PERCUTANEOUS NEPHROSTOLITHOTOMY/ PYELOSTOLITHOTOMY - 2 CM OR LESS Right 11/12 Performed by Tristan Bowman MD at [facility] OR URETEROSCOPY WITH URETERAL STENT EXCHANGE Right 02/15/2021 Performed by Tristan Bowman MD at [facility] OR PERCUTANEOUS NEPHROSTOLITHOTOMY/ PYELOSTOLITHOTOMY - GREATER THAN 2 CM Left 04/29/2021 Performed by Kvng Rm MD at [facility] OR PERCUTANEOUS PLACEMENT NEPHROSTOMY CATHETER WITH NEPHROSTOGRAM/ URETEROGRAM/ IMAGE-GUIDANCE Left 04/29/2021 Performed by Kvng Rm MD at [facility] OR CYSTOURETHROSCOPY WITH URETEROSCOPY AND/ OR PYELOSCOPY - WITH REMOVAL/ MANIP ULATION CALCULUS Left 04/29/2021 Performed by Kvng Rm MD at [facility] OR EXPLORATORY LAPAROTOMY, DIVERTING LOOP COLOSTOMY N/A 07/12/2021 Performed by Maurice Cao DO at [facility] OR Social History Socioeconomic History Marital status: Spouse name: Not on file Number of children: Not on file Years of education: Not on file Highest education level: Not on file Occupational History Not on file Tobacco Use Smoking status: Never Smoker Smokeless tobacco: Never Used Vaping Use Vaping Use: Never used Substance and Sexual Activity Alcohol use: Not Currently Drug use: Not Currently Sexual activity: Not on file Other Topics Concern Not on file Social History Narrative Not on file History reviewed. No pertinent family history. Scheduled Meds:acetaminophen (TYLENOL EXTRA STRENGTH) tablet 1,000 mg, 1,000 mg, Oral, Q8H aspirin EC tablet 81 mg, 81 mg, Oral, QDAY [Held by Provider] atenoloL (TENORMIN) tablet 25 mg, 25 mg, Oral, QAM8 atorvastatin (LIPITOR) tablet 40 mg, 40 mg, Oral, QDAY famotidine (PEPCID) tablet 20 mg, 20 mg, Oral, QDAY gabapentin (NEURONTIN) capsule 300 mg, 300 mg, Oral, TID heparin (porcine) PF syringe 5,000 Units, 5,000 Units, Subcutaneous, Q8H naloxegoL (MOVANTIK) tablet 25 mg, 25 mg, Oral, QDAY(07) Continuous Infusions: dextrose 5 % & 0.45% NaCl with KCl 20 mEq/L infusion 50 mL/hr at 07/15/21 0636 PRN and Respiratory Meds:[Held by Provider] cetirizine QDAY PRN, ondansetron (ZO SUGAR) IV Q6H PRN, [Held by Provider] traMADoL Q6H PRN Allergies Allergen Reactions Tegaderm BLISTERS Erythromycin RASH Readyprep Chg [Chlorhexidine Gluconate] RASH Home Environment: Home Situation: Lives with Family (07/13/2021 12:00 PM) Patient Owned Equipment: None ( has a walker) (07/13/2021 12:00 PM) Type of Home: House (07/14/2021 4:00 PM) Entry Stairs: 1-2 Stairs (07/13/2021 12:00 PM) In-Home Stairs: No Stairs (07/13/2021 12:00 PM) Comments: to note- patient unable to give his home setup and had to give in formation of home setup at the bedside as pt confused and stating wrong informat ion per his (07/13/2021 12:00 PM) No data recorded @ADDRESSFULL@ Current Level Of Function: PT Gait:Gait Distance: 60 feet Gait: Assistance Level: Moderate Assist, x2 Peopl e Gait: Assistive Device: Hand Hold Assist Bed Mobility/Transfers Bed Mobility: Supine to Sit: Moderate Assist, x2 People Bed Mobility: Sit to Supine: Maximum Assist, x2 People Transfer Type: Sit to/from Stand Transfer: Assistance Level: To/From, Bed, Minimal Assist, x2 People Transfer: Assistive Device: Hand Hold Assist Transfers: Type Of Assistance: For Balance, For Strength Deficit, For Safety Con siderations End Of Activity Status: In Bed, Nursing Notified, Instructed Patient to Request Assist with Mobility, Instructed Patient to Use Call Light OT ADL's Where Assessed: Edge of Bed Eating Deficits: NPO Grooming Assist: Maximum Assist Grooming Deficits: Teeth Care LE Dressing Assist: Maximum Assist LE Dressing Deficits: Don/Doff L Sock, Don/Doff R Sock Toileting Assist: Total Assist Toileting Deficits: (colostomy/urostomy) Comment: Pt requires step by step cueing to sequence teeth brushing, as well as hand over hand assist to grasp tooth brush and bring to mouth. Pt demonstrates s trength to bring hand to mouth but unable to feel the tooth brush in his R hand. After brushing hand, held toothpaste tube ~12 inches away at visual midline and cued pt to grab it with R hand. Pt reaches up to touch face instead. Multiple t rials with same result, pt able to state what the command is and says he can see it. Pt also unable to reach out with his L hand on command. SENIOR ADMINISTRATIVE SERVICES OFFICER COGNITIVE EVALUATION SUMMARY PRAGMATICS: BEHAVIOR: AUDITORY COMPREHENSION: ORIENTATION: AUDITORY ATTENTION/WORKING MEMORY: AUDITORY MEMORY/SUSTAINED ATTENTION: NEW LEARNING: SEQUENCING/ORGANIZATION: PROBLEM SOLVING: REASONING: MATH/MONEY SKILLS: VISUAL PERCEPTUAL: SWALLOW EVALUATION SUMMARY Review of Systems: A 14 point review of systems was negative except for: that noted in the HPI Physical Exam: BP: 144/68 (07/15 903) Temp: 36.7 C (98 F) (07/15 799) Pulse: 76 (07/15 799) Respirations: 11 PER MINUTE (07/15 799) SpO2: 94 % (07/15 799) SpO2 Pulse: 76 (07/15 799) Height: 172.7 cm (68") (07/15 903) Body mass index is 21.72 kg/m. Gen: Alert & Oriented X 1 HEENT: EOMI Neck: Supple, Heart: Extremities well perfused Lungs: non labored breathing Abdomen: Soft, non-tender, non-distended Skin: no gross lesions appreciated Ext: No significant BLE edema MS: Root Right Left Shoulder Abduction C5 4 5 Elbow Flexion C5 4+ 5 Elbow Extension C7 4+ 5 Wrist Extension C6 5 5 Finger Flexion C8 5 5 Finger Abduction T1 4 5 Hip Flexion L2 4 4+ Knee Flexion L5/S1 4+ 5 Knee Extension L3 4+ 5 Dorsiflexion L4 5 5 Plantarflexion S1 5 5 Neuro: Cranial Nerves Cranial Nerves 2-12 are grossly intact DTR's 1+ throughout Babinski Plantar Reflex is Downgoing Bilaterally Upper Extremity Tone Normal Lower Extremity Tone Normal Upper Extremity Sensation Intact to light touch bilaterally Lower Extremity Sensation Intact to light touch bilaterally Clonus Negative Bilaterally Memory/Cognition/Speech Alert to person, not place or date. participative in con versation and follows commands with repetition. Intake/Output Summary (Last 24 hours) at 07/15/2021 0945 Last data filed at 07/15/2021 0900 Gross per 24 hour Intake 1812.5 ml Output 1225 ml Net 587.5 ml Hematology: Lab Results Component Value Date HGB 9.6 07/15/2021 HCT 28.7 07/15/2021 PLTCT 100 07/15/2021 WBC 9.5 07/15/2021 NEUT 85 07/09/2021 ANC 8.20 07/09/2021 ALC 0.40 07/09/2021 MARIBELL 9 07/09/2021 AMC 0.90 07/09/2021 ABC 0.10 07/09/2021 MCV 89.3 07/15/2021 MCHC 33.4 07/15/2021 MPV 9.3 07/15/2021 RDW 15.3 07/15/2021 , Coagulation: Lab Results Component Value Date INR 1.1 03/31/2021 and General Chemistry: Lab Results Component Value Date NA 140 07/15/2021 K 4.9 07/15/2021 CL 107 07/15/2021 GAP 9 07/15/2021 BUN 30 07/15/2021 CR 0.95 07/15/2021 GLU 108 07/15/2021 CA 7.7 07/15/2021 ALBUMIN 2.8 07/12/2021 LACTIC 0.9 07/13/2021 OBSCA 1.17 07/13/2021 MG 2.3 07/15/2021 TOTBILI 0.8 07/12/2021 Radiology: Reviewed Danyel Sosa MD PMENT SERVICE TECHNICIAN * Kely Hernandez, RD - 07/13/2021 1:33 PM EQUIPMENT SERVICE TECHNICIAN Associated Order(s): CONSULT DIETITIAN CLINICAL NUTRITION Clinical Nutrition Initial Assessment Name: Chemo Jenkins : 1950 Age: 71 y.o. Admission Date: 07/12/2021 LOS: 1 day Recommendation: ADAT to goal regular diet. Please encourage high-kcal high-protein unit shakes: High Protein Shake Ideas ? Vanilla 1 vanilla [place] Instant Breakfast + 2 vanilla ice creams + 1 vanil la Boost ? Very Chocolate 1 chocolate [place] Instant Breakfast + 2 chocolate ice cream s + 1 chocolate Boost ? Chocolate Raspberry 3 pkg Beneprotein + 1 raspberry sherbet + 1 chocolate Dipesh t ? Chocolate Peanut Butter 2 pkg Beneprotein + 1 chocolate milk + 2 chocolate ic e creams + 2 pkg peanut butter ? [place] Shake 3 pkg Beneprotein + 1 vanilla ice cream + 1 peach Boost Breeze ? [place] Socrates 3 pkg Beneprotein + 2 orange sherbet + 1 vanilla Boost ? Chocolate Banana 3 pkg Beneprotein+ 1 chocolate milk + 2 chocolate ice creams + 1/2 banana ? Vanilla Peanut Butter Banana 3 pkg Beneprotein + 2 vanilla ice creams + 1 pkg peanut butter + 1/2 banana + 1 vanilla Boost ? [place] 1 strawberry Keene Instant Breakfast + 2 vanilla ice creams + 1 strawberry Boost ? Chocolate Peanut Butter Banana 3 pkg Beneprotein + 2 chocolate ice creams + 1 pkg peanut butter + 1/2 banana + 1 chocolate Boost ? Lemon Cream 2 pkg Beneprotein + 2 [place] ice lemon (partially melted) + 1 van illa ice cream + 1 whole milk ? Gonzalez Slush 1 pkg Prosource + 1 pkg Beneprotein + 2 [place] ice gonzalez (parti ally melted) Comments: Mr. Jenkins is a 71yoM with PMH notable for metastatic urothelial carcinoma s/p r adical cystectomy/prostatectomy with ileal conduit (06/04/20) now with distal ob struction s/p loop colostomy (07/12). Currently NPO. RN reports pt had sips with meds this morning and tolerated well. He was sleeping at time of visit but spoke with and son at bedside. They report pt has had low appetite for past 3 mo nths at least due to painful bowel function and fear around eating. reports that he tolerates PO alright and has no issues feeding himself, but he avoids e ating in order to avoid pain. Sometimes will go an entire day without eating. Wh en he is willing to have something, usually only eats once/day or has Ensure dri nk. Did not complete ERAS pre-op Impact drinks. estimates 15lb weight loss x2 months- corroborated by 152lb (04/29/21) to mel 138lb (07/09/21). Using admi t weight, is down 6% x2 months and 15% x1 year from UBW (168lb prior to cystecto my). Son asks how to encourage pt to eat more when diet advances. Discussed stra tegies to optimize intake in setting of low appetite, encouraged small frequent meals including preferred foods for appetite stimulation. As pt likes ice cream, encouraged use of homemade shakes, potentially using oral supplement as base wi th additions of ice cream, nut butter, coconut oil, avocado, fruit, protein powd er, etc. Suggested using timer or cues to remind pt to attempt eating q2-3hr, pr esenting variety of options in small portions sizes, and maximizing intake when appetite is present. Discussed started with soft foods with new ostomy but overa ll goal to return to regular diet. Will set short follow-up to monitor diet adva ncement and complete malnutrition assessment. Nutrition Assessment of Patient: Admit Weight: 64.8 kg (07/12 standing scale); Usual Weight: 76.2 kg (06/04/20) BMI (Calculated): 21.72; BMI Categories Adult: Acceptable: 18.5-24.9; Appearance : Thin Pertinent Allergies/Intolerances: none noted Pertinent Labs: BUN 36/Cr 1.81, phos 5.7; Pertinent Meds: famotidine, zofran Unintentional Weight Loss: down 6% x2 months, 15% x1 year Oral Diet Order: Regular Current Oral Intake: NPO Estimated Calorie Needs: 4353-8097 (30-35 kcal/kg) Estimated Protein Needs: 97 (1.5 g/kg) Malnutrition Assessment: Evaluation pending (physical exam) Nutrition Focused Physical Assessment: Deferred evaluation of muscle/fat wasting while pt asleep Edema: No Pressure Injury: No Nutrition Diagnosis: Inadequate oral intake Etiology: low appetite in setting of metastatic urothelial cancer Signs & Symptoms: weight loss 6% x2 months, diet recall Intervention / Plan: Monitor PO intakes, weights, labs, meds Reviewed small frequent meals and oral supplements Goals: Prevent further weight loss Time Frame: Throughout stay Avoid prolonged NPO status Time Frame: Within 72 hours Kely Hernandez, MS, RDN, LD, CNSC Available via Voalte [id number] PMENT SERVICE TECHNICIAN * Marisol Sky RN - 07/13/2021 10:00 AM EQUIPMENT SERVICE TECHNICIAN Associated Order(s): CONSULT WOUND/OSTOMY TEAM NURSE Images from the original note were not included. Wound Ostomy Note NAME:Chemo Jenkins :1950 AGE: 71 y.o. ADMISSION DATE: 07/12/2021 DAYS ADMITTED: LOS: 1 day Reason for Consult/Visit: ostomy education Assessment/Plan: Principal Problem: Colon obstruction (HCC) s/p: EXPLORATORY LAPAROTOMY, DIVERTING LOOP COLOSTOMY on 07/12/20 Education: Pt's at bedside. Pt has a urostomy that his cares for at h ome. He gets adequate wear time. The current colostomy pouch was leaking so I demonstrated how to change it. Demonstrated how to empty/change pouch. Topics d iscussed: frequency of emptying/changing pouch, how to empty/change pouch, stoma /peristomal skin care, pouch options, how to cut pouch, how to obtain pouches. Q uestions answered. Ostomy Care: Suggested Pouching Supplies: Urostomy - 2 piece 06545, 63422 Colostomy - 1 piece Jhoana colostomy pouch 65009 or 8901 1. Change pouch with any sign of leaking 2. Clean skin with water only - no soap or wipes 3. If skin is broken down surrounding stoma, sprinkle stoma powder and wipe aw ay the excess. 4. [place] no sting skin prep on powdered skin and let dry completely 5. Cut new pouch leaving 1/8"-1/4" of skin showing between the stoma and pouch 6. Warm new pouch in palm of hands 7. Ensure skin is dry and apply new pouch 8. Lay warm hand over pouch once it's applied Ileal Conduit 06/04/20 0550 Lower Right Quadrant (Active) 06/04/20 0550 Lower Right Quadrant Agree With My Assessment? 07/13/21 1200 Stoma Assessment [place] Ii, round, protruding 07/13/21 1000 Peristomal Skin Assessment Unable to Assess 07/13/21 1000 Dressing Status Intact 07/13/21 1000 Urine Color Yellow 07/13/21 1000 Urine Appearance Mucous 07/13/21 1000 Urine Output (ml) 30 milliliters 07/13/21 1200 Colostomy 07/12/21 1354 Upper Left Quadrant (Active) 07/12/21 1354 Upper Left Quadrant Wound Image 07/13/21 1000 Agree With My Assessment? 07/13/21 1200 Stoma Assessment Red, swollen, protruding 07/13/21 1000 Drainage Description Brown 07/13/21 1000 Peristomal Skin Assessment Intact 07/13/21 1000 Dressing Status Changed/New 07/13/21 1000 Stoma Miscellaneous Bridge in Place 07/13/21 1000 Drain Output (ml) 50 ml 07/13/21 0800 Marisol Sky RN, BSN, CWON Wound Ostomy Nursing Consult Service Available via VoalSuperb Text or [employer] [facility] 4422-2824 Office number [phone] Contact Team "Emt I/85" after 4:00pm M-F/weekends/holidays PMENT SERVICE TECHNICIAN * Vivi Stoddard MD - 07/13/2021 5:00 AM EQUIPMENT SERVICE TECHNICIAN Associated Order(s): CONSULT CARDIOLOGY PHYSICIAN CARDIOLOGY CONSULT NOTE Reason for Consult: "Troponemia in the setting of hypotension" History of Present Illness Chmeo Jenkins is a 71 y.o. male with PMH significant for metastatic urot helial carcinoma s/p radical cystectomy/prostatectomy, remote history of pAF who was admitted 07/12/2021 for exploratory laparotomy and diverting loop ostomy. Harrison lisa underwent surgery on 07/12/21 with the finding of peritoneal metastasis and mesenteric tethering. Postoperatively, he was noted to be lethargic and hypoten sive BP 89/50 HR 75, O2 Sat 95% on RA. He was given IVFs and blood products. EKG sinus rhythm with PACs, HR 65 bpm. Troponin 0.37. Cardiology consulted for r ecommendations. Patient seen and examined at bedside. Somnolent but easily arousable. Oriented o nly to person. Denies any complaints at this time including chest pain, shortnes s of breath, palpitations, lower extremity edema. Reports some lightheadedness. Denies tobacco, alcohol or recreational drug use. Stress echocardiogram 12/03/2019: Final impressions/recommendations 1. Normal left ventricular systolic function at rest with an ejection fraction of 56% with global increase in left ventricular systolic function after exercise . 2. Total exercise time 4:00 and stage I METS 4.6 3. Target heart rate 126 bpm. 4. Max heart rate achieved 105 bpm = 70% of target. 5. Normal EKG response to exercise without evidence of ischemia. 6. Normal blood pressure response to exercise. 7. Patient did not experience chest pain during the test. 8. Negative stress echo achieved level of exercise and heart rate which did not meet minimum criteria of 85% of maximum predicted heart rate. The submaximal n ature of this test reduces the overall sensitivity of the findings. 9. Mild mitral and tricuspid regurgitation. 10. Mitral inflow Doppler and tissue Doppler indicated stage I diastolic dysfunc tion. Most recent left heart catheterization: N/A Telemetry findings: sinus rhythm Chest X-Ray 07/13/21 IMPRESSION 1. Mildly low right lung volume with right mid to lower lung opacities, which may represent pneumonia and/or atelectasis. A small right pleural effusion is also suspected. 2. Suspected small right apical pneumothorax. A short-term follow-up exam in 2 to 4 hours (or sooner if clinically indicated) is recommended to see if this persists or worsens. Assessment & Recs Chemo Perkins Liam Jenkins is a 71 y.o. patient with the following problems: Principal Problem: Colon obstruction (HCC) NSTEMI - ACS vs demand ischemia Acute anemia Postoperative hypotension Metastatic urothelial carcinoma H/O pAF - Stress echocardiogram 11/2019 was submaximal and is thus, inconclusive - Trend troponin x 3 or until downtrends - Obtain formal echocardiogram in the am - Resume aspirin: 324 mg x 1 -> 81 mg daily - Will need to discuss anticoagulation with heparin gtt if troponin continues to trend up significantly - Avoid stressors such as hypotension, anemia, hypoxia - Recommend goals of care discussion with family Thank you for allowing us to participate in the care of this patient. Discussed with Dr. Connolly who agrees with plan above. After 5PM please call Cardiology deb hicks superintendent recreation. Monday - Monday 8AM-5PM please call Cardiology consult pager. Valentina Venegas Fellow, Cardiovascular Medicine Pager: [phone] I personally took the history, examined the patient and formulated the treatment plan. I discussed the above with the fellow. Mr. Jenkins is a 71 year old male with a PMH of PAF, who presented with peritoneal metastasis and underwent a expl oratory laparotomy and diverting loop ostomy. Postoperatively he developed hypo tension and mildly elevated troponin. Overnight, no atrial fibrillation was not ed by anesthesia staff or fellows or on telemetry. Today, when I saw him, he wa s confused, lethargic, had left sided hemianopsia, and right arm and leg weaknes s all of which were new according to his and son. We discussed with madhav puga staff to ask for stat neuro evaluation for possible CVA . Echocardiogram today showed normal LVEF. Hypotension was likely hypovolemic and responded to fluids and blood. ?watershed CVA due to hypotension vs cardioembo lic CVA. Please continue tele monitoring. Add atorvastatin. Check Carotid dupl ex study. He has evidence of coronary arter calcification on CT - with elevated troponin due to supply demand mismatch, rec reg thall MPI prior to discharge. If he develops atrial fibrillation over night, start amiodarone. Home Medications Medications Prior to Admission Medication Sig acetaminophen (TYLENOL) 500 mg tablet Take one tablet by mouth every 6 hours as needed for Pain. Max of 4,000 mg of acetaminophen in 24 hours. (Patient shayy ng differently: Take 500-1,000 mg by mouth every 6 hours as needed for Pain. Max of 4,000 mg of acetaminophen in 24 hours.) aspirin EC 81 mg tablet Take 81 mg by mouth at bedtime daily. Take with food . atenoloL (TENORMIN) 50 mg tablet Take 50 mg by mouth every morning. brimonidine (ALPHAGAN) 0.2 % ophthalmic solution INSTILL 1 DROP INTO RIGHT E YE TWICE DAILY cetirizine (ZYRTEC) 10 mg tablet Take 5 mg by mouth daily as needed. colestipoL (COLESTID) 1 gram tablet dexAMETHasone (DECADRON) 4 mg tablet Take two tablets by mouth daily. On Day s 2-4 of each cycle. dicyclomine (BENTYL) 10 mg capsule dorzolamide-timoloL (COSOPT) 2-0.5 % ophthalmic solution INSTILL 1 DROP INTO RIGHT EYE TWICE DAILY famotidine (PEPCID) 20 mg tablet Take 20 mg by mouth twice daily as needed. fish oil /omega-3 fatty acids (SEA-OMEGA) 340/1000 mg capsule Take 1 capsule by mouth daily. hydrocortisone acetate (ANUSOL-HC) 25 mg rectal suppository Insert or Apply 25 mg to rectal area as directed every 12 hours. ketorolac (ACULAR) 0.5 % ophthalmic solution latanoprost (XALATAN) 0.005 % ophthalmic solution INSTILL 1 DROP INTO RIGHT EYE AT BEDTIME [facility] [place] Dispense one month of supplies Dx Bladder Cancer C67.9 ondansetron (ZOFRAN ODT) 4 mg rapid dissolve tablet Dissolve one tablet by m outh every 6 hours as needed for Nausea or Vomiting. Place on tongue to dissolve . ondansetron HCL (ZOFRAN) 8 mg tablet Take one tablet by mouth every 8 hours as needed (nausea and vomiting). oxyCODONE (ROXICODONE) 5 mg tablet Take one tablet by mouth every 6 hours as needed for Pain polyethylene glycol 3350 (MIRALAX) 17 g packet Take one packet by mouth ky y as needed. prednisoLONE (PRELONE) 15 mg/5 mL oral syrup RHOPRESSA 0.02 % drop INSTILL 1 INTO RIGHT EYE AT BEDTIME senna/docusate (SENOKOT-S) 8.6/50 mg tablet Take one tablet by mouth daily a s needed. Vit A,C,X-Saqo-Jthnjf (PRESERVISION AREDS) 14,320-226-200 naum-ca-nazp cap Take 2 capsules by mouth daily. Current Medications Scheduled Meds:acetaminophen (TYLENOL EXTRA STRENGTH) tablet 1,000 mg, 1,000 mg, Oral, Q8H [Held by Provider] atenoloL (TENORMIN) tablet 25 mg, 25 mg, Oral, QAM8 ceFAZolin (ANCEF) IVP 2 g, 2 g, Intravenous, Q8H* famotidine (PEPCID) tablet 20 mg, 20 mg, Oral, QDAY gabapentin (NEURONTIN) capsule 300 mg, 300 mg, Oral, TID naloxegoL (MOVANTIK) tablet 25 mg, 25 mg, Oral, QDAY(07) Continuous Infusions: dextrose 5 % & 0.45% NaCl with KCl 20 mEq/L infusion PRN and Respiratory Meds:[Held by Provider] cetirizine QDAY PRN, ondansetron (ZO SUGAR) IV Q6H PRN, [Held by Provider] traMADoL Q6H PRN Allergies Allergies Allergen Reactions Tegaderm BLISTERS Erythromycin RASH Readyprep Chg [Chlorhexidine Gluconate] RASH Past Medical History Medical History: Diagnosis Date Acid reflux did tx with zantac, now elevates pillows Arrhythmia PAF Arthritis Cancer (HCC) skin Hypertension Kidney stones Urothelial carcinoma (HCC) Past Surgical History Surgical History: Procedure Laterality Date HX APPENDECTOMY 1970 HX VASECTOMY 1980 CATARACT REMOVAL Bilateral 2018 GLAUCOMA SURGERY Bilateral 2018 LASER EYE SURGERY Right 2020 CYSTOSCOPY 03/2020 TUMOR EXCISION 04/2020 bladder tumor excised Radical Cystectomy/Prostatectomy with Ileal Conduit; BPLND N/A 06/04/2020 Performed by Keith Trinidad MD at [facility] OR PERCUTANEOUS NEPHROSTOLITHOTOMY/ PYELOSTOLITHOTOMY - 2 CM OR LESS Right 11/12 Performed by Tristan Bowman MD at [facility] OR URETEROSCOPY WITH URETERAL STENT EXCHANGE Right 02/15/2021 Performed by Tristan Bowman MD at [facility] OR PERCUTANEOUS NEPHROSTOLITHOTOMY/ PYELOSTOLITHOTOMY - GREATER THAN 2 CM Left 04/29/2021 Performed by Kvng Rm MD at [facility] OR PERCUTANEOUS PLACEMENT NEPHROSTOMY CATHETER WITH NEPHROSTOGRAM/ URETEROGRAM/ IMAGE-GUIDANCE Left 04/29/2021 Performed by Kvng Rm MD at [facility] OR CYSTOURETHROSCOPY WITH URETEROSCOPY AND/ OR PYELOSCOPY - WITH REMOVAL/ MANIP ULATION CALCULUS Left 04/29/2021 Performed by Kvng Rm MD at [facility] OR Social History Social History Socioeconomic History Marital status: Spouse name: Not on file Number of children: Not on file Years of education: Not on file Highest education level: Not on file Occupational History Not on file Tobacco Use Smoking status: Never Smoker Smokeless tobacco: Never Used Vaping Use Vaping Use: Never used Substance and Sexual Activity Alcohol use: Not Currently Drug use: Not Currently Sexual activity: Not on file Other Topics Concern Not on file Social History Narrative Not on file Family History Patient denies FH of cardiac disease Review of Systems 10 point ROS completed and negative except as noted per HPI. Vital Signs: Most Recent Vital Signs: 24 Ho ur Range BP: 99/43 (07/13 0218) Temp: 36.4 C (97.6 F) (07/13 0400) Pulse: 69 (07/13 0416) Respirations: 12 PER MINUTE (07/13 041) SpO2: 99 % (07/13 0416) SpO2 Pulse: 69 (07/13 0416) Height: 172.7 cm (5' 8") (07/12 1146) BP: (70-155)/(43-91) ABP: (84-118)/(38-49) Temp: [36.3 C (97.4 F)-37.1 C (98.8 F)] Pulse: [57-85] Respirations: [10 PER MINUTE-27 PER MINUTE] SpO2: [84 %-100 %] Vitals: 07/12/21 1146 Weight: 64.8 kg (142 lb 12.8 oz) Intake/Output Summary (Last 24 hours) at 07/13/2021 0500 Last data filed at 07/13/2021 0400 Gross per 24 hour Intake 2278.6 ml Output 230 ml Net 2048.6 ml Stool Occurrence: 0 Physical Exam General Appearance: thin male, calm, no acute distress Eyes: conjunctivae and lids normal, EOMI Neck: no JVP, no thyromegaly Cardiovascular system: regular, S1 S2 heard, systolic murmur+ Respiratory system: CTAB, unlabored breathing, on RA Extremities: no peripheral edema, peripheral pulses intact Abdomen: soft, ostomy+ Neurologic: somnolent but easily arousable, oriented only to person, no focal de ficits noted Lab/Radiology/Other Diagnostic Tests: 24-hour labs: Results for orders placed or performed during the hospital encounter of 07/12/21 (from the past 24 hour(s)) TYPE & CROSSMATCH Collection Time: 07/12/21 11:45 AM Result Value Ref Range Units Ordered 3 Crossmatch Expires 07/15/2021,2359 Record Check FOUND ABO/RH(D) O NEG Antibody Screen NEG Electronic Crossmatch YES Unit Number [id number] Blood Component Type RBC,ADSOL,LEUKO REDUCED,2ND CONT. Unit Division 00 Status OF Unit TRANSFUSED ISSUE DATE TIME PRODUCT CODE R4975I09 BLOOD TYPE O NEG CODING STATUS 9500 BLOOD EXPIRATION DATE Transfusion Status OK TO TRANSFUSE Crossmatch Result COMPATIBLE,ELECTRONIC Unit Number [id number] Blood Component Type RBC,ADSOL,LEUKO REDUCED,2ND CONT. Unit Division 00 Status OF Unit TRANSFUSED ISSUE DATE TIME PRODUCT CODE [id number] BLOOD TYPE O NEG CODING STATUS 9500 BLOOD EXPIRATION DATE Transfusion Status OK TO TRANSFUSE Crossmatch Result COMPATIBLE,ELECTRONIC POC BLOOD GAS ARTERIAL Collection Time: 07/12/21 8:50 PM Result Value Ref Range PH-ART-POC 7.39 7.35 - 7.45 JFH8-DIW-PYM 32 (L) 35 - 45 MMHG PO2-ART-POC 103 (H) 80 - 100 MMHG Base Def-ART-POC 6.0 MMOL/L O2 Sat-ART-POC 98.0 95 - 99 % Bkbidqcpsei-NLO-RYU 19.1 (L) 21 - 28 MMOL/L POC HEMATOCRIT Collection Time: 07/12/21 8:50 PM Result Value Ref Range Hemoglobin POC 7.8 (L) 13.5 - 16.5 GM/DL Hematocrit POC 23.0 (L) 40 - 50 % POC POTASSIUM Collection Time: 07/12/21 8:50 PM Result Value Ref Range Potassium-POC 5.0 3.5 - 5.1 MMOL/L POC SODIUM Collection Time: 07/12/21 8:50 PM Result Value Ref Range Sodium-POC 136 (L) 137 - 147 MMOL/L POC GLUCOSE Collection Time: 07/12/21 8:51 PM Result Value Ref Range Glucose, POC 116 (H) 70 - 100 MG/DL CBC Collection Time: 07/12/21 9:15 PM Result Value Ref Range White Blood Cells 21.4 (H) 4.5 - 11.0 K/UL RBC 3.01 (L) 4.4 - 5.5 M/UL Hemoglobin 9.0 (L) 13.5 - 16.5 GM/DL Hematocrit 27.5 (L) 40 - 50 % MCV 91.4 80 - 100 FL MCH 29.8 26 - 34 PG MCHC 32.6 32.0 - 36.0 G/DL RDW 14.2 11 - 15 % Platelet Count 135 (L) 150 - 400 K/UL MPV 9.2 7 - 11 FL COMPREHENSIVE METABOLIC PANEL Collection Time: 07/12/21 9:15 PM Result Value Ref Range Sodium 141 137 - 147 MMOL/L Potassium 5.5 (H) 3.5 - 5.1 MMOL/L Chloride 106 98 - 110 MMOL/L Glucose 115 (H) 70 - 100 MG/DL Blood Urea Nitrogen 33 (H) 7 - 25 MG/DL Creatinine 1.74 (H) 0.4 - 1.24 MG/DL Calcium 8.3 (L) 8.5 - 10.6 MG/DL Total Protein 5.1 (L) 6.0 - 8.0 G/DL Total Bilirubin 0.8 0.3 - 1.2 MG/DL Albumin 2.8 (L) 3.5 - 5.0 G/DL Alk Phosphatase 55 25 - 110 U/L AST (SGOT) 23 7 - 40 U/L CO2 20 (L) 21 - 30 MMOL/L ALT (SGPT) 8 7 - 56 U/L Anion Gap 15 (H) 3 - 12 eGFR 41 (L) >60 mL/min MAGNESIUM Collection Time: 07/12/21 9:15 PM Result Value Ref Range Magnesium 2.5 1.6 - 2.6 mg/dL PHOSPHORUS Collection Time: 07/12/21 9:15 PM Result Value Ref Range Phosphorus 5.6 (H) 2.0 - 4.5 MG/DL IONIZED CALCIUM Collection Time: 07/12/21 9:15 PM Result Value Ref Range Ionized Calcium 1.02 1.0 - 1.3 MMOL/L TEG WITH KAOLIN Collection Time: 07/12/21 9:15 PM Result Value Ref Range MA Kaolin 44.2 (L) >49.9 MM R Kaolin 3.2 <9.1 MIN RK Kaolin 7.4 <12.1 MIN K Kaolin 4.2 (H) <3.1 MIN Angle Kaolin 48.0 (L) >54.9 DEG Lysis30 0.0 <8.1 % PREPARE CRYOPRECIPITATE Collection Time: 07/12/21 9:55 PM Result Value Ref Range Units Ordered 1 Unit Number [id number] Blood Component Type CRY 5 POOLED Unit Division 00 Status OF Unit TRANSFUSED ISSUE DATE TIME PRODUCT CODE [id number] BLOOD TYPE O POS CODING STATUS 5100 BLOOD EXPIRATION DATE Transfusion Status OK TO TRANSFUSE PREPARE APHERESIS PLATELETS Collection Time: 07/12/21 10:20 PM Result Value Ref Range Units Ordered 1 Unit Number [id number] Blood Component Type APHERESIS PLT,LEUKO REDUCED, BACTERIAL MONITOR 7D, IRRADIATED,2ND CONT Unit Division 00 Status OF Unit TRANSFUSED ISSUE DATE TIME PRODUCT CODE [id number] BLOOD TYPE A NEG CODING STATUS 0600 BLOOD EXPIRATION DATE Transfusion Status OK TO TRANSFUSE CBC Collection Time: 07/12/21 10:50 PM Result Value Ref Range White Blood Cells 22.2 (H) 4.5 - 11.0 K/UL RBC 3.34 (L) 4.4 - 5.5 M/UL Hemoglobin 10.2 (L) 13.5 - 16.5 GM/DL Hematocrit 30.3 (L) 40 - 50 % MCV 90.5 80 - 100 FL MCH 30.4 26 - 34 PG MCHC 33.6 32.0 - 36.0 G/DL RDW 14.0 11 - 15 % Platelet Count 111 (L) 150 - 400 K/UL MPV 8.5 7 - 11 FL PREPARE PLASMA (FFP) Collection Time: 07/13/21 12:11 AM Result Value Ref Range Units Ordered 2 Unit Number [id number] Blood Component Type THAWED PLASMA Unit Division 00 Status OF Unit ISSUED ISSUE DATE TIME [id number] PRODUCT CODE [id number] BLOOD TYPE B POS CODING STATUS 7300 BLOOD EXPIRATION DATE Transfusion Status OK TO TRANSFUSE Unit Number [id number] Blood Component Type APHERESIS PLASMA THAWED Unit Division 00 Status OF Unit ISSUED ISSUE DATE TIME [id number] PRODUCT CODE [id number] BLOOD TYPE B POS CODING STATUS 7300 BLOOD EXPIRATION DATE Transfusion Status OK TO TRANSFUSE BASIC METABOLIC PANEL Collection Time: 07/13/21 1:15 AM Result Value Ref Range Sodium 141 137 - 147 MMOL/L Potassium 4.9 3.5 - 5.1 MMOL/L Chloride 105 98 - 110 MMOL/L CO2 22 21 - 30 MMOL/L Anion Gap 14 (H) 3 - 12 Glucose 126 (H) 70 - 100 MG/DL Blood Urea Nitrogen 36 (H) 7 - 25 MG/DL Creatinine 1.81 (H) 0.4 - 1.24 MG/DL Calcium 8.4 (L) 8.5 - 10.6 MG/DL eGFR 39 (L) >60 mL/min CBC Collection Time: 07/13/21 1:15 AM Result Value Ref Range White Blood Cells 18.3 (H) 4.5 - 11.0 K/UL RBC 3.16 (L) 4.4 - 5.5 M/UL Hemoglobin 9.4 (L) 13.5 - 16.5 GM/DL Hematocrit 28.3 (L) 40 - 50 % MCV 89.6 80 - 100 FL MCH 29.8 26 - 34 PG MCHC 33.3 32.0 - 36.0 G/DL RDW 14.2 11 - 15 % Platelet Count 143 (L) 150 - 400 K/UL MPV 9.1 7 - 11 FL MAGNESIUM Collection Time: 07/13/21 1:15 AM Result Value Ref Range Magnesium 2.5 1.6 - 2.6 mg/dL PHOSPHORUS Collection Time: 07/13/21 1:15 AM Result Value Ref Range Phosphorus 5.7 (H) 2.0 - 4.5 MG/DL IONIZED CALCIUM Collection Time: 07/13/21 1:15 AM Result Value Ref Range Ionized Calcium 1.09 1.0 - 1.3 MMOL/L TEG WITH KAOLIN Collection Time: 07/13/21 1:15 AM Result Value Ref Range MA Kaolin 60.6 >49.9 MM R Kaolin 3.1 <9.1 MIN RK Kaolin 4.5 <12.1 MIN K Kaolin 1.4 <3.1 MIN Angle Kaolin 70.2 >54.9 DEG Lysis30 0.0 <8.1 % LACTIC ACID(LACTATE) Collection Time: 07/13/21 1:15 AM Result Value Ref Range Lactic Acid 1.3 0.5 - 2.0 MMOL/L TROPONIN-I Collection Time: 07/13/21 1:15 AM Result Value Ref Range Troponin-I 0.37 (H) 0.0 - 0.05 NG/ML BLOOD GASES, ARTERIAL Collection Time: 07/13/21 2:32 AM Result Value Ref Range pH-Arterial 7.40 7.35 - 7.45 pCO2-Arterial 38 35 - 45 MMHG pO2-Arterial 72 (L) 80 - 100 MMHG Base Deficit-Arterial 0.6 MMOL/L O2 Sat-Arterial 94.9 (L) 95 - 99 % Cjjgpeduvdu-YBJ-Uup 23.9 21 - 28 MMOL/L CBC Collection Time: 07/13/21 2:42 AM Result Value Ref Range White Blood Cells 16.1 (H) 4.5 - 11.0 K/UL RBC 2.85 (L) 4.4 - 5.5 M/UL Hemoglobin 8.6 (L) 13.5 - 16.5 GM/DL Hematocrit 25.3 (L) 40 - 50 % MCV 88.9 80 - 100 FL MCH 30.2 26 - 34 PG MCHC 34.0 32.0 - 36.0 G/DL RDW 14.2 11 - 15 % Platelet Count 122 (L) 150 - 400 K/UL MPV 8.5 7 - 11 FL AMMONIA Collection Time: 07/13/21 3:00 AM Result Value Ref Range Ammonia 34 9 - 35 MCMOL/L Glucose: (!) 126 (07/13/21 011) POC Glucose (Download): (!) 116 (07/12/212050) PMENT SERVICE TECHNICIAN documented in this encounter OR Notes * Operative Report (Direct Entry) - Maurice Cao DO - 07/12/2021 12:53 PM EQUIPMENT SERVICE TECHNICIAN OPERATIVE REPORT Name: Chemo Jenkins is a 71 y.o. male : 1950 DATE OF OPERATION: 07/12/2021 Surgeon(s) and Role: * Maurice Cao DO - Primary * Scott Garcia MD - Resident - Assisting Preoperative Diagnosis: Malignant neoplasm of urinary bladder, unspecified site (HCC) [C67.9] Post-op Diagnosis * Malignant neoplasm of urinary bladder, unspecified site (HCC) [C67.9] Procedure(s): EXPLORATORY LAPAROTOMY, DIVERTING LOOP COLOSTOMY 22 modifier for abnormal anatomy, obliteration of planes and carcinomatosis Indication: 71 year old male with metastatic bladder cancer with rectal invasion causing obstructive symptoms. Findings: peritoneal metastases with mesenteric tethering, distal sigmoid obstru ction. Operative Procedure: Informed consent was obtained. Patient was taken from the preoperative holding area to the operating room and underwent general anesthesia without complication. Patient was placed in the supine position. The abdomen was prepped and draped in the typical sterile fashion. Perioperative antibiotic s were given and SCDs were on and functioning prior to induction. Preoperative timeout was performed indicating the correct patient, procedure, staff, and equi pment. An upper midline laparotomy incision was created in dissected down to the level of the fascia. The abdomen was entered without complication the fascia was open ed the length of the incision. Immediately there was noted to be a large amount of malignant ascites. There was peritoneal metastasis to the colon, pelvis, an d small bowel. This caused a significant amount of mesenteric tethering and the re was difficulty mobilizing the sigmoid colon. The sigmoid colon was identifie d and mobilized in a lateral to medial fashion. It was densely adhered to the l eft colon via adhesions from the metastases. Once adequately mobilized attentio n was turned to the loop colostomy creation. A circular defect was created in t he left upper quadrant of the skin and dissected down the level of the fascia. The fascia was incised in a cruciate fashion and a muscle splitting technique wa s used to enter the abdomen from the colostomy site. The loop colostomy was bro ught up through the defect using a [place] drain. The midline fascia was then c losed using a #1 looped PDS in a bidirectional fashion. The subcutaneous tissue s were irrigated and the skin was closed with adrianna. The loop colostomy was t hen matured using interrupted 3-0 Vicryl in a brooked fashion. A bridge was ariel evelyn under the loop. Sterile dressing was placed over the incision and ostomy ap pliance was replaced to the newly formed colostomy and old urostomy. Overall, patient tolerated the procedure well. All instrument, needle, sponge c ounts were correct at the end of the case. Dr. Cao was present for the ent robert case. Patient was awoken from anesthesia and taken to the postanesthesia ca re unit in stable condition. Estimated Blood Loss: 20mL Specimen(s) Removed/Disposition: * No specimens in log * Complications: None Implants: ostomy bridge Drains: colostomy, urostomy Disposition: PACU - stable Scott Garcia MD Pager [phone] ATTESTATION I performed this procedure with a resident. and I was present for the entire pro cedure. Staff name: Maurice Cao DO Date: 07/14/2021 PMENT SERVICE TECHNICIAN documented in this encounter Miscellaneous Notes * Care Plan - Joseph Hawkins RN - 07/17/2021 6:42 PM EQUIPMENT SERVICE TECHNICIAN Problem: Skin Integrity Goal: Skin integrity intact Flowsheets (Taken 07/17/2021 1840) Skin integrity intact: Monitor skin integrity Assure position change Promote nutrition Assess nutrition Provide skin care interventions Goal: Healing of skin (Wound & Incision) Flowsheets (Taken 07/17/2021 1840) Healing of wound (wounds and Incisions): Implement wound/incision care as ordered Assess wound site healing Goal: Healing of skin (Pressure Injury) Flowsheets (Taken 07/17/2021 1840) Healing of skin (Pressure Injury): Assess pressure injury Use the National Pressure Injury Advisory Panel Staging System for grading pres sure injuries Assess for signs and symptoms of pressure injury infection Problem: Mobility/Activity Intolerance Goal: Maximize functional ADL's and mobility outcomes Flowsheets (Taken 07/17/2021 1840) Maximize functional ADLs and mobility outcomes: Maintain body position Physical thrapy evaluation and treatment Consider consult for mobility/activity intolerance Manage energy conservation for mobility/activity intolerance Occupational therapy evaulation and treatment Problem: Neurological Status, Impaired/Altered Goal: Cognitive status restored to baseline Flowsheets (Taken 07/17/2021 1840) Cognitive status restored to baseline: Home patient to reality Promote rest Complete delirium assessment scale Assess patient history Reduce delirium risk Problem: Nutrition Deficit Goal: Adequate nutritional intake Flowsheets (Taken 07/17/2021 1840) Adequate nutritional intake: Promote oral fluid intake Assess dietary preferences PMENT SERVICE TECHNICIAN * Response Teams - Farzana Ambriz RN - 07/14/2021 10:23 AM EQUIPMENT SERVICE TECHNICIAN Patient stroke activated for increased right sided weakness, deviation and extin ction. On arrival with neuro team, patient improved from yesterday. Stroke activ ation cancelled per Otf Vines APRN. PMENT SERVICE TECHNICIAN * Acute Stroke Response - Liliana Low RN - 07/13/2021 1:13 PM EQUIPMENT SERVICE TECHNICIAN RN Stroke Activation Summary Date of Service: 07/13/2021 Chemo Jenkins is a 71 y.o. male. : 1950 MR N#: [id number] Allergies: Tegaderm, Erythromycin, and Readyprep chg [chlorhexidine gluconate] ASRT Arrival: 1232 Location of Response : 5057 Page Received: 1220 Clinical Presentation: Ataxia, Right sided weakness, Visual changes Total Stroke Scale Score: 8 Signs & Symptoms: Unknown Dysphagia screen: Did Patient Pass The Swallow Screen Part I?: Yes Did Patient Pass The Swallow Screen Part II: Yes Did Patient Pass The Swallow Screen: Yes Assessment & Plan Summary: Patient noted to be experiencing right sided weakness and a right sided visual field cut while working with therapy. CTH obtained by primary team where a left WORKDAY SENIOR ASSOCIATE infarct was found. Patient had surgery yesterday and is not a candid ate for acute stroke intervention at this time per stroke team. Due to patient's current ITA, stroke team will order a routine MRI head instead of a CTA. Radiology/Interventional Delay N/A Plan: routine MRI head Call Completion: 1256 RN handoff: ERNST Puckett History of Present Illness Medical History: Diagnosis Date Acid reflux did tx with zantac, now elevates pillows Arrhythmia PAF Arthritis Cancer (HCC) skin Hypertension Kidney stones Urothelial carcinoma (HCC) Surgical History: Procedure Laterality Date HX APPENDECTOMY 1970 HX VASECTOMY 1980 CATARACT REMOVAL Bilateral 2018 GLAUCOMA SURGERY Bilateral 2018 LASER EYE SURGERY Right 2020 CYSTOSCOPY 03/2020 TUMOR EXCISION 04/2020 bladder tumor excised Radical Cystectomy/Prostatectomy with Ileal Conduit; BPLND N/A 06/04/2020 Performed by Keith Trinidad MD at [facility] OR PERCUTANEOUS NEPHROSTOLITHOTOMY/ PYELOSTOLITHOTOMY - 2 CM OR LESS Right 11/12 Performed by Tristan Bowman MD at [facility] OR URETEROSCOPY WITH URETERAL STENT EXCHANGE Right 02/15/2021 Performed by Tristan Bowman MD at [facility] OR PERCUTANEOUS NEPHROSTOLITHOTOMY/ PYELOSTOLITHOTOMY - GREATER THAN 2 CM Left 04/29/2021 Performed by Kvng Rm MD at [facility] OR PERCUTANEOUS PLACEMENT NEPHROSTOMY CATHETER WITH NEPHROSTOGRAM/ URETEROGRAM/ IMAGE-GUIDANCE Left 04/29/2021 Performed by Kvng Rm MD at [facility] OR CYSTOURETHROSCOPY WITH URETEROSCOPY AND/ OR PYELOSCOPY - WITH REMOVAL/ MANIP ULATION CALCULUS Left 04/29/2021 Performed by Kvng Rm MD at [facility] OR Social History Socioeconomic History Marital status: Spouse name: Not on file Number of children: Not on file Years of education: Not on file Highest education level: Not on file Occupational History Not on file Tobacco Use Smoking status: Never Smoker Smokeless tobacco: Never Used Vaping Use Vaping Use: Never used Substance and Sexual Activity Alcohol use: Not Currently Drug use: Not Currently Sexual activity: Not on file Other Topics Concern Not on file Social History Narrative Not on file Liliana Low RN PMENT SERVICE TECHNICIAN * Acute Stroke Response - Otf Vines APRN-APPRENTICE INSTRUMENT TECHNICIAN - 07/13/2021 1:07 PM EQUIPMENT SERVICE TECHNICIAN NAME:Chemo Jenkins :1950 AGE: 71 y.o. ADMISSION DATE: 07/12/2021 DAYS ADMITTED: LOS: 1 day Date of Service: 07/13/2021 Allergies: Tegaderm, Erythromycin, and Readyprep chg [chlorhexidine gluconate] Type of Acute Stroke Response Team note: Consult Stroke Activation Tier: Tier 1 Assessment & Plan Chief Complaint: R side vision loss Assessment: Chemo Jenkins is a 71 y.o. male with metastatic urothelial c arcinoma s/p radical cystectomy/prostatectomy, remote history of pAF who was adm itted on 07/12/2021 for exploratory laparotomy and diverting loop ostomy. Patient underwent surgery on 07/12/21 with the finding of peritoneal metastasis and mese nteric tethering. Postoperatively overnight, he was noted to be lethargic and hy potensive BP 89/50 and transferred back to ICU for monitoring and management. The morning of 07/13 R visual field cut and mild R side weakness found by primary team/therapies. CT head completed and found Multifocal acute to subacute appea ring bilateral cerebral and cerebellar infarcts with a dominant moderate to larg e left WORKDAY SENIOR ASSOCIATE territory infarct. At that time the stroke team was activated. NIHSS on arrival was 7 for disorientation, R side drift, R homonymous hemianopia and L side extinction deficit. Elevated Creatinine prevented us from getting CTA head and neck. Impression: Likely Subacute ischemic stroke, likely embolic due to multiple vasc ular territory involvement Suspected localization of Stroke Sx: Left WORKDAY SENIOR ASSOCIATE territory Suspected etiology: Cardio Embolism Pre-event mRS: 0 - No symptoms at all Plan: - No acute stroke intervention - MRI head without contrast - Stroke risk factor assessment Labs to include FLP, A1c Echocardiogram completed in AM of 07/13 and was unremarkable Vascular Imaging: Obtain MRA head and neck w/o Telemetry to monitor for arrhythmia Evaluation of smoking history and smoking cessation consult if tobaccoism prese nt Antiplt therapy: We recommend 81mg ASA daily - CBC, BMP routine - PT/OT/SENIOR ADMINISTRATIVE SERVICES OFFICER consult eval and treat - Rehab consult for assessment of post stroke care The patient was seen and discussed with Dr. Joshua Vines, RECEIVING WEIGHER-APPRENTICE INSTRUMENT TECHNICIAN Vascular Neurology History of Present Ilness History of Present Illness: Mr. Jenkins is a 71 y.o. male with metastatic urothelial carcinoma s/p radical cy stectomy/prostatectomy, remote history of pAF who was admitted on 07/12/2021 for exploratory laparotomy and diverting loop ostomy. Patient underwent surgery on with the finding of peritoneal metastasis and mesenteric tethering. Posto peratively overnight, he was noted to be lethargic and hypotensive BP 89/50 and transferred back to ICU for monitoring and management. On the morning of 07/13 he was found to have R sided vision disturbance as report ed by the . Later in the morning therapies noted right side weakness. The pr imary team obtained a CT head and found scattered acute to subacute infarcts tahmina aterally with the largest infarct being in the L occipital lobe. His last known well was the evening of 07/12. The patients review of systems was negative with e xception of current neurological complaints. Review of Systems A 14 point review of systems was negative except for: Neurological: positive for weakness Eyes: positive for vision disturbance Constitutional: negative Ears, nose, mouth, throat, and face: negative Respiratory: negative Cardiovascular: negative Gastrointestinal: negative Genitourinary: negative Integument/breast: negative Hematologic/lymphatic: negative Musculoskeletal: negative Behavioral/Psych: negative Endocrine: negative Allergic/Immunologic: negative Stroke Activation Summary ASRT Arrival: 1232 Location of Response : 5664 Page Received: 0699 CT/CTP/CTA: BP: 108/65 (07/13 1200) Temp: 36.6 C (97.8 F) (07/13 1200) Pulse: 70 (07/13 1232) Respirations: 13 PER MINUTE (07/13 1232) SpO2: 98 % (07/13 1232) SpO2 Pulse: 68 (07/13 1200) Height: 172.7 cm (68") (01/25 0700) NIHSS Completed at: 1240 NIH Stroke Scale Item Scoring Definition Score 1a. LOC 0=alert and responsive 1=arousable to minor stimulation 2=arousable only to painful stimulation 3=reflex responses or unrousable 0 1b. LOC questions-as patients age and month. Must be exact. 0=both correct 1=one correct (or dysarthria, intubated, foreign language) 2=neither correct 2 1c. 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, hand packer and release non-paretic hand (other 1 step co mmands or mimic OK) 0=both correct (ok if impaired by weakness) 1=one correct 2=neither correct 0 2. Best Gaze-horizontal EOM by voluntary or Dolls 0=normal 1=partial gaze palsy (abnormal gaze in one or both eyes) 2=forced eye deviation or total paresis which cannot be overcome by Dolls 0 3. Visual Field-use visual threat if necessary. If monocular, score field of goo d eye 0=no visual loss 1=partial hemianopia, quadrantanopia, extinction 2=complete hemianopia 3=bilateral hemianopia or blindness 2 4. Facial Palsy-if stuporous, check symmetry of grimace to pain 0=normal 1=minor paralysis, flat NLF, asymm smile 2=partial paralysis (lower face=UMN) 3=complete paralysis (upper and lower face) 0 5. Motor Arm-arms outstretched 90 deg (sitting) or 45 deg (supine) for 10 second s. Encourage best effort. 0=no drift x 10 seconds 1=drift but doesnt hit bed 2=some antigravity effort, but cant sustain 3=no antigravity effort, but even minimal mvt counts 4=no movement at all X=unable to assess due to amputation, fusion, etc L/R 0/1 6. Motor Leg-raise leg to 30 degrees supine x 5 seconds 0=no drift x 5 seconds 1=drift but doesnt hit bed 2=some antigravity effort, but cant sustain 3=no antigravity effort, but even minimal mvt counts 4=no movement at all X=unable to assess due to amputation, fusion, etc L/R 0/1 7. Limb Ataxia-check finger-nose- finger; heel-johnson; and score only if out of pr oportion to paralysis 0=no ataxia (or aphasic, hemiplegic) 1=ataxia in upper or lower extremity 2=ataxia in upper AND lower extremity X=unable to assess due to amputation, fusion, etc 0 8. Sensory-use safety pin. Check grimace or withdrawal if stuporous. Score only stroke- related losses 0=normal 1=mild-mod unilateral loss but patient aware of touch 9or aphasic, confused) 2=total loss, pt unaware of touch. Coma, bilateral loss 0 9. Best Language-describe cookie jar picture, name objects, read sentences. May use repeating, writing, stereognosis 0=normal 1=mild-mod aphasia (diff but partly comprehensible) 2=severe aphasia (almost no info exchanged) 3=mute, global aphasia, coma. No 1 step commands 0 10. Dysarthria-read list of words 0=normal 1=mild-mod; slurred but intelligible 2=severe; unintelligible or mute 0 11. Extinction/Neglect- simultaneously touch patient on both hands, show fingers in both visual shoemaker, ask about deficit, left hand 0=normal, none detected. ( visual loss alone) 1=neglects or extinguishes to double simult stimulation in any modality 2=profound neglect in more than one modality 1 extinction Score 7 Was IV tPA given? No The patient was not a tPA candidate due to recent abdominal surgery Dysphagia screen: Performed by nursing staff and passed Cardiac rhythm on presentation: SR Health History Medical History: Diagnosis Date Acid reflux did tx with zantac, now elevates pillows Arrhythmia PAF Arthritis Cancer (HCC) skin Hypertension Kidney stones Urothelial carcinoma (HCC) Surgical History: Procedure Laterality Date HX APPENDECTOMY 1969 HX VASECTOMY 1980 CATARACT REMOVAL Bilateral 2018 GLAUCOMA SURGERY Bilateral 2018 LASER EYE SURGERY Right 2019 CYSTOSCOPY 03/2020 TUMOR EXCISION 04/2020 bladder tumor excised Radical Cystectomy/Prostatectomy with Ileal Conduit; BPLND N/A 06/04/2020 Performed by Keith Trinidad MD at [facility] OR PERCUTANEOUS NEPHROSTOLITHOTOMY/ PYELOSTOLITHOTOMY - 2 CM OR LESS Right 11/12 Performed by Tristan Bowman MD at [facility] OR URETEROSCOPY WITH URETERAL STENT EXCHANGE Right 02/15/2021 Performed by Tristan Bowman MD at [facility] OR PERCUTANEOUS NEPHROSTOLITHOTOMY/ PYELOSTOLITHOTOMY - GREATER THAN 2 CM Left 04/29/2021 Performed by Kvng Rm MD at [facility] OR PERCUTANEOUS PLACEMENT NEPHROSTOMY CATHETER WITH NEPHROSTOGRAM/ URETEROGRAM/ IMAGE-GUIDANCE Left 04/29/2021 Performed by Kvng Rm MD at [facility] OR CYSTOURETHROSCOPY WITH URETEROSCOPY AND/ OR PYELOSCOPY - WITH REMOVAL/ MANIP ULATION CALCULUS Left 04/29/2021 Performed by Kvng Rm MD at [facility] OR History reviewed. No pertinent family history. Social History Socioeconomic History Marital status: Spouse name: Not on file Number of children: Not on file Years of education: Not on file Highest education level: Not on file Occupational History Not on file Tobacco Use Smoking status: Never Smoker Smokeless tobacco: Never Used Vaping Use Vaping Use: Never used Substance and Sexual Activity Alcohol use: Not Currently Drug use: Not Currently Sexual activity: Not on file Other Topics Concern Not on file Social History Narrative Not on file Medications: acetaminophen (TYLENOL EXTRA STRENGTH) tablet 1,000 mg, 1,000 mg, Oral, Q8H [Held by Provider] atenoloL (TENORMIN) tablet 25 mg, 25 mg, Oral, QAM8 famotidine (PEPCID) tablet 20 mg, 20 mg, Oral, QDAY gabapentin (NEURONTIN) capsule 300 mg, 300 mg, Oral, TID naloxegoL (MOVANTIK) tablet 25 mg, 25 mg, Oral, QDAY(07) PRN Medications: [Held by Provider] cetirizine QDAY PRN, ondansetron (ZOFRAN) IV Q6H PRN, [Held b y Provider] traMADoL Q6H PRN Physical Exam HEENT: normocephalic, eyes open with no discharge, nares patent, oropharynx is c lear with no lesions, palate intact CV: regular rate, distal pulses palpable Chest: normal configuration, equal chest rise bilaterally Ab: soft, non-tender, no masses, no organomegaly Skin: no rashes or lesions Extended Neuro Exam: Mental status: alert, disoriented to place/time Speech: Normal Abnormal Fluency x Comprehension x Articulation x Repetition x Naming x Cranial Nerves: Normal Abnormal II x III, IV, x V x VII x VIII x IX, X x XI x XII x Muscle/motor: Tone: nml Bulk: nml Fasciculations: none Pronator drift: RUE NF NE SA EF EE WE WF FF FE FA TA HF POPE HE KF KE DF PF R 4 4 4 4 4 4+ 4+ 4+ 4+ 4+ L 5 5 5 5 5 5 5 5 5 5 Sensation: Normal RUE LUE RLE LLE Light Touch x Pin Prick x Temperature x Vibration Proprioception Coordination: Normal Abnormal Right Abnormal Left Finger to Nose x Rapid alternating x Heel to Johnson x Finger tap Foot tap Gait and Sation: Deferred due to hypotension Reflexes: Right Left Triceps Biceps 2 2 Brachioradialis 2 2 Patella 2 2 Ankle 2 2 Plantar down down Lab/Radiology/Other Diagnostic Tests: Hematology: Lab Results Component Value Date HGB 8.5 07/14/2021 HCT 25.3 07/14/2021 PLTCT 91 07/14/2021 WBC 10.6 07/14/2021 NEUT 85 07/09/2021 ANC 8.20 07/09/2021 ALC 0.40 07/09/2021 MARIBELL 9 07/09/2021 AMC 0.90 07/09/2021 ABC 0.10 07/09/2021 MCV 88.5 07/14/2021 MCHC 33.6 07/14/2021 MPV 9.2 07/14/2021 RDW 15.3 07/14/2021 and General Chemistry: Lab Results Component Value Date NA 139 07/14/2021 K 4.7 07/14/2021 CL 107 07/14/2021 GAP 8 07/14/2021 BUN 41 07/14/2021 CR 1.31 07/14/2021 GLU 105 07/14/2021 CA 7.5 07/14/2021 ALBUMIN 2.8 07/12/2021 LACTIC 0.9 07/13/2021 OBSCA 1.17 07/13/2021 MG 2.5 07/14/2021 TOTBILI 0.8 07/12/2021 Glucose: (!) 126 (07/13/21114) POC Glucose (Download): (!) 116 (07/12/212050) Pertinent radiology reviewed. PMENT SERVICE TECHNICIAN Associated attestation - Angela Lewis MD - 07/14/2021 10:35 AM EQUIPMENT SERVICE TECHNICIAN ATTESTATION I personally interviewed and examined the patient. I have reviewed the history, physical, impression and plan outlined by the Nurse Practitioner. The patient was stroke activated for visual alteration. 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 On examination there is lethargy, right homonomous hemianopia, drift RUE and RLE . My impression is embolic strokes. Remote hx of a fib but none on tele My plan is MRI head, mra head, carotid dopplers, continue aspirin. Staff name: Angela Lewis MD Date: 07/14/2021 * Response Teams - Dacia Yusuf RN - 07/12/2021 8:52 PM EQUIPMENT SERVICE TECHNICIAN Rapid Response Team Progress Note Date: 07/12/2021 Time: 9:22 PM Patient: Chemo Jenkins Attending: Maurice Cao DO Service: Surgery-Oncology - 72 Admission Date: 07/12/2021 LOS: 0 days A Code/Rapid Response Timeline Event Report has been created for this patient on 07/12 at 2033 for AMS. ABG & labs obtained, Narcan administered. LR bolus ordered and administered. Surgery team at bedside for evaluation.VSS stabilized. TABLET MAKING MACHINE OPERATOR HELPER dismissed. TABLET MAKING MACHINE OPERATOR HELPER to follow up per protocol. Dacia Yusuf RN PMENT SERVICE TECHNICIAN * Care Plan - Alec Franklin RT - 07/12/2021 6:05 PM EQUIPMENT SERVICE TECHNICIAN RT Adult Assessment Note NAME:Chemo Jenkins :1950 AGE: 71 y.o. ADMISSION DATE: 07/12/2021 DAYS ADMITTED: LOS: 0 days RT Treatment Plan: Protocol Plan: Procedures PAP: Place a nursing order for "IS Q1h While Awake" for any of Lung Expansion in dicators Oxygen/Humidity: O2 to keep SpO2 > 95%, if less than 24 hours post op, then keep SpO2 greater than 92%;Colorectal SSI prevention bundle SpO2: BID & PRN Additional Comments: Impressions of the patient: no resp distress Vital Signs: Pulse: 77 RR: 16 PER MINUTE SpO2: 92 % O2 Device: Liter Flow: Other (Comment) (RA) O2%: Breath Sounds: Clear (Implies normal) Respiratory Effort: Non-Labored PMENT SERVICE TECHNICIAN documented in this encounter Plan of Treatment Date/Time Name Type Priority Associated Diag noses 07/12/2021 2:03 PM EQUIPMENT SERVICE TECHNICIAN POC ANES US GUIDED NERVE Imaging Routine BLOCK 07/12/2021 2:05 PM EQUIPMENT SERVICE TECHNICIAN POC ANES US GUIDED NERVE Imaging Routine BLOCK documented as of this encounter Goals Goal Patient Associated Recent Progress Patient-Stat Aut hor Goal Type Problems ed? Resume normal activities Hospital Yes Aracelis Schaeffer, RN Note: To become as active as I can and get use to this thing on my side and return to normal activity. Recover from illness Hospital On track (07/12/2021 Yes April Marie, 6:07 PM EQUIPMENT SERVICE TECHNICIAN) RN Note: "To heal and recover, and get stronger, be as healthy as I can" documented as of this encounter Procedures Comments Procedure Name Priority Date/Time Associated Diag nosis CBC Routine 07/20/2021 8:17 AM EQUIPMENT SERVICE TECHNICIAN HC PHOSPHOROUS, SERUM Routine 07/19/2021 2:42 AM EQUIPMENT SERVICE TECHNICIAN HC MAGNESIUM Routine 07/19/2021 2:42 AM EQUIPMENT SERVICE TECHNICIAN HC BASIC METABOLIC PANEL Routine 07/19/2021 2:42 AM EQUIPMENT SERVICE TECHNICIAN HC PHOSPHOROUS, SERUM Routine 07/17/2021 3:35 AM EQUIPMENT SERVICE TECHNICIAN HC MAGNESIUM Routine 07/17/2021 3:35 AM EQUIPMENT SERVICE TECHNICIAN HC BASIC METABOLIC PANEL Routine 07/17/2021 3:35 AM EQUIPMENT SERVICE TECHNICIAN HC CBC,AUTOMATED Routine 07/16/2021 4:40 AM EQUIPMENT SERVICE TECHNICIAN HC PHOSPHOROUS, SERUM Routine 07/16/2021 4:40 AM EQUIPMENT SERVICE TECHNICIAN HC MAGNESIUM Routine 07/16/2021 4:40 AM EQUIPMENT SERVICE TECHNICIAN HC BASIC METABOLIC PANEL Routine 07/16/2021 4:40 AM EQUIPMENT SERVICE TECHNICIAN PV CAROTID ARTERY DUPLEX Routine 07/15/2021 SCAN 9:04 AM EQUIPMENT SERVICE TECHNICIAN HC CBC,AUTOMATED Routine 07/15/2021 2:55 AM EQUIPMENT SERVICE TECHNICIAN HC PHOSPHOROUS, SERUM Routine 07/15/2021 2:55 AM EQUIPMENT SERVICE TECHNICIAN HC MAGNESIUM Routine 07/15/2021 2:55 AM EQUIPMENT SERVICE TECHNICIAN HC BASIC METABOLIC PANEL Routine 07/15/2021 2:55 AM EQUIPMENT SERVICE TECHNICIAN POC GLUCOSE 07/14/2021 11:04 AM EQUIPMENT SERVICE TECHNICIAN HC HEMOGLOBIN A1C STAT 07/14/2021 6:45 AM EQUIPMENT SERVICE TECHNICIAN HC STAT 07/14/2021 LIPID-5:CHOL/TRG/HDL/LDL+ 6:45 AM EQUIPMENT SERVICE TECHNICIAN VLDL HC TROPONIN-I Routine 07/14/2021 5:56 AM EQUIPMENT SERVICE TECHNICIAN HC CBC,AUTOMATED Routine 07/14/2021 3:11 AM EQUIPMENT SERVICE TECHNICIAN HC PHOSPHOROUS, SERUM Routine 07/14/2021 3:11 AM EQUIPMENT SERVICE TECHNICIAN HC MAGNESIUM Routine 07/14/2021 3:11 AM EQUIPMENT SERVICE TECHNICIAN HC BASIC METABOLIC PANEL Routine 07/14/2021 3:11 AM EQUIPMENT SERVICE TECHNICIAN TRANSFUSE RBC'S STAT 07/14/2021 12:45 AM EQUIPMENT SERVICE TECHNICIAN TROPONIN-I Routine 07/14/2021 12:20 AM EQUIPMENT SERVICE TECHNICIAN MRA HEAD WO CONTRAST STAT 07/13/2021 10:54 PM EQUIPMENT SERVICE TECHNICIAN MRI HEAD WO CONTRAST STAT 07/13/2021 10:35 PM EQUIPMENT SERVICE TECHNICIAN HC CBC,AUTOMATED STAT 07/13/2021 9:21 PM EQUIPMENT SERVICE TECHNICIAN HC PHOSPHOROUS, SERUM STAT 07/13/2021 9:21 PM EQUIPMENT SERVICE TECHNICIAN HC MAGNESIUM STAT 07/13/2021 9:21 PM EQUIPMENT SERVICE TECHNICIAN HC LACTIC ACID(LACTATE) STAT 07/13/2021 9:21 PM EQUIPMENT SERVICE TECHNICIAN HC BLOOD STAT 07/13/2021 GASES;(CALCULATED 02) 9:21 PM EQUIPMENT SERVICE TECHNICIAN HC CALCIUM IONIZED STAT 07/13/2021 9:21 PM EQUIPMENT SERVICE TECHNICIAN BASIC METABOLIC PANEL STAT 07/13/2021 9:21 PM EQUIPMENT SERVICE TECHNICIAN TROPONIN-I 07/13/2021 6:01 PM EQUIPMENT SERVICE TECHNICIAN HC TROPONIN-I Routine 07/13/2021 12:17 PM EQUIPMENT SERVICE TECHNICIAN CT HEAD WO CONTRAST STAT 07/13/2021 11:54 AM EQUIPMENT SERVICE TECHNICIAN 2D + DOPPLER ECHO W/ GILDA 07/13/2021 CONTRAST 8:00 AM EQUIPMENT SERVICE TECHNICIAN CHEST SINGLE VIEW GILDA 07/13/2021 7:13 AM EQUIPMENT SERVICE TECHNICIAN TROPONIN-I Routine 07/13/2021 5:52 AM EQUIPMENT SERVICE TECHNICIAN CHEST SINGLE VIEW STAT 07/13/2021 3:33 AM EQUIPMENT SERVICE TECHNICIAN HC AMMONIA Routine 07/13/2021 3:00 AM EQUIPMENT SERVICE TECHNICIAN CBC Routine 07/13/2021 2:42 AM EQUIPMENT SERVICE TECHNICIAN HC BLOOD STAT 07/13/2021 GASES;(CALCULATED 02) 2:32 AM EQUIPMENT SERVICE TECHNICIAN TRANSFUSE PLASMA (FFP) STAT 07/13/2021 2:18 AM EQUIPMENT SERVICE TECHNICIAN HC TEG W KAOLIN R Routine 07/13/2021 ACTIVATED CLOTTING TIME 1:15 AM EQUIPMENT SERVICE TECHNICIAN HC TROPONIN-I Add on 07/13/2021 1:15 AM EQUIPMENT SERVICE TECHNICIAN HC CBC,AUTOMATED Routine 07/13/2021 1:15 AM EQUIPMENT SERVICE TECHNICIAN HC PHOSPHOROUS, SERUM Routine 07/13/2021 1:15 AM EQUIPMENT SERVICE TECHNICIAN HC MAGNESIUM Routine 07/13/2021 1:15 AM EQUIPMENT SERVICE TECHNICIAN HC LACTIC ACID(LACTATE) GILDA 07/13/2021 1:15 AM EQUIPMENT SERVICE TECHNICIAN HC CALCIUM IONIZED Routine 07/13/2021 1:15 AM EQUIPMENT SERVICE TECHNICIAN HC BASIC METABOLIC PANEL Routine 07/13/2021 1:15 AM EQUIPMENT SERVICE TECHNICIAN TRANSFUSE PLASMA (FFP) STAT 07/13/2021 12:23 AM EQUIPMENT SERVICE TECHNICIAN PREPARE PLASMA (FFP) STAT 07/13/2021 12:11 AM EQUIPMENT SERVICE TECHNICIAN TRANSFUSE CRYOPRECIPITATE STAT 07/12/2021 11:18 PM EQUIPMENT SERVICE TECHNICIAN TRANSFUSE APHERESIS STAT 07/12/2021 PLATELETS 11:17 PM EQUIPMENT SERVICE TECHNICIAN TRANSFUSE RBC'S STAT 07/12/2021 11:04 PM EQUIPMENT SERVICE TECHNICIAN CBC STAT 07/12/2021 10:50 PM EQUIPMENT SERVICE TECHNICIAN PREPARE APHERESIS Routine 07/12/2021 PLATELETS 10:20 PM EQUIPMENT SERVICE TECHNICIAN PREPARE CRYOPRECIPITATE STAT 07/12/2021 9:55 PM EQUIPMENT SERVICE TECHNICIAN TRANSFUSE RBC'S STAT 07/12/2021 9:40 PM EQUIPMENT SERVICE TECHNICIAN HC TEG W KAOLIN R STAT 07/12/2021 ACTIVATED CLOTTING TIME 9:15 PM EQUIPMENT SERVICE TECHNICIAN HC CBC,AUTOMATED STAT 07/12/2021 9:15 PM EQUIPMENT SERVICE TECHNICIAN HC PHOSPHOROUS, SERUM STAT 07/12/2021 9:15 PM EQUIPMENT SERVICE TECHNICIAN HC MAGNESIUM STAT 07/12/2021 9:15 PM EQUIPMENT SERVICE TECHNICIAN HC CALCIUM IONIZED STAT 07/12/2021 9:15 PM EQUIPMENT SERVICE TECHNICIAN HC COMPREHENSIVE STAT 07/12/2021 METABOLIC PANEL 9:15 PM EQUIPMENT SERVICE TECHNICIAN POC GLUCOSE 07/12/2021 8:51 PM EQUIPMENT SERVICE TECHNICIAN HC BLOOD GAS, POC 07/12/2021 8:50 PM EQUIPMENT SERVICE TECHNICIAN HC SODIUM, POC 07/12/2021 8:50 PM EQUIPMENT SERVICE TECHNICIAN HC POTASSIUM, POC 07/12/2021 8:50 PM EQUIPMENT SERVICE TECHNICIAN HC HEMATOCRIT POC 07/12/2021 8:50 PM EQUIPMENT SERVICE TECHNICIAN COLOSTOMY/ SKIN LEVEL 07/12/2021 Malignant neopl asm of CECOSTOMY 12:29 PM EQUIPMENT SERVICE TECHNICIAN urinary bladder, unspecified site (HCC) HC ABO GROUP STAT 07/12/2021 11:45 AM EQUIPMENT SERVICE TECHNICIAN TELEMETRY STRIPS-SCAN 07/12/2021 12:00 AM EQUIPMENT SERVICE TECHNICIAN ECG-SCAN 07/12/2021 12:00 AM EQUIPMENT SERVICE TECHNICIAN ECG-SCAN 07/12/2021 12:00 AM EQUIPMENT SERVICE TECHNICIAN documented in this encounter Results * (ABNORMAL) CBC (07/20/2021 8:17 AM EQUIPMENT SERVICE TECHNICIAN) White Blood 11.0 4.5 - 11.0 K/UL [facility] Cells RBC 3.82 (L) 4.4 [...] Platelet Count 297 150 - 400 K/UL [facility] MPV 8.0 7 - 11 FL [facility] Specimen Blood (substance) Performing Organization Address City/State/ZIP Code P dg Number [facility] [address] [place] [address] * PHOSPHORUS (07/19/2021 2:42 AM EQUIPMENT SERVICE TECHNICIAN) Phosphorus 3.4 2.0 - 4.5 MG/DL [facility] Specimen Blood (substance) Performing Organization Address [facility] P dg Number [facility] [address] [place] [address] * MAGNESIUM (07/19/2021 2:42 AM EQUIPMENT SERVICE TECHNICIAN) Magnesium 1.9 1.6 - 2.6 mg/dL [facility] Specimen Blood (substance) Performing Organization Address [facility] P dg Number [facility] [address] [place] [address] * (ABNORMAL) BASIC METABOLIC PANEL (07/19/2021 2:42 AM EQUIPMENT SERVICE TECHNICIAN) Sodium 137 137 - 147 MMOL/L [facility] [...] equation Specimen Blood (substance) Performing Organization Address [facility] P dg Number [facility] [address] [place] [address] * PHOSPHORUS (07/17/2021 3:35 AM EQUIPMENT SERVICE TECHNICIAN) Phosphorus 2.0 2.0 - 4.5 MG/DL [facility] Specimen Blood (substance) Performing Organization Address [facility] P dg Number [facility] [address] [place] [address] * MAGNESIUM (07/17/2021 3:35 AM EQUIPMENT SERVICE TECHNICIAN) Magnesium 1.7 1.6 - 2.6 mg/dL [facility] Specimen Blood (substance) Performing Organization Address [facility] P dg Number [facility] [address] [place] [address] * (ABNORMAL) BASIC METABOLIC PANEL (07/17/2021 3:35 AM EQUIPMENT SERVICE TECHNICIAN) Sodium 133 (L) 137 - 147 MMOL/L [facility] Potassium 4.7 3.5 - 5.1 MMOL/L [facility] Chloride 104 98 - 110 MMOL/L [facility] CO2 24 21 - 30 MMOL/L [facility] Anion Gap 5 3 - 12 [facility] Glucose 111 (H) 70 - 100 MG/DL [facility] Blood Urea 15 7 - 25 MG/DL [facility] Nitrogen Creatinine 0.71 0.4 - 1.24 MG/DL [facility] Calcium 7.7 (L) 8.5 - 10.6 MG/DL [facility] eGFR >60Comment: eGFR calculated >60 mL/min [facility] using the CKD-EPIcr_R equation Specimen Blood (substance) Performing Organization Address City/[facility]/ZIP Code P dg Number [facility] [address] [place] [address] * (ABNORMAL) PHOSPHORUS (07/16/2021 4:40 AM EQUIPMENT SERVICE TECHNICIAN) Phosphorus 1.7 (L) 2.0 - 4.5 MG/DL [facility] Specimen Blood (substance) Performing Organization Address [facility]/ZIP Code P dg Number [facility] [address] [place] [address] * MAGNESIUM (07/16/2021 4:40 AM EQUIPMENT SERVICE TECHNICIAN) Magnesium 1.9 1.6 - 2.6 mg/dL [facility] Specimen Blood (substance) Performing Organization Address [facility]/ZIP Code P dg Number [facility] [address] [place] [address] * (ABNORMAL) BASIC METABOLIC PANEL (07/16/2021 4:40 AM EQUIPMENT SERVICE TECHNICIAN) Sodium 136 (L) 137 - 147 MMOL/L [facility] Potassium 5.1 3.5 - 5.1 MMOL/L [facility] Chloride 108 98 - 110 MMOL/L [facility] CO2 24 21 - 30 MMOL/L [facility] Anion Gap 4 3 - 12 [facility] Glucose 103 (H) 70 - 100 MG/DL [facility] Blood Urea 19 7 - 25 MG/DL [facility] Nitrogen Creatinine 0.77 0.4 - 1.24 MG/DL [facility] Calcium 7.4 (L) 8.5 - 10.6 MG/DL [facility] eGFR >60Comment: eGFR calculated >60 mL/min [facility] using the CKD-EPIcr_R equation Specimen Blood (substance) Performing Organization Address City/[facility]/ZIP Code P dg Number [facility] [address] [place] [address] * (ABNORMAL) CBC (07/16/2021 4:40 AM EQUIPMENT SERVICE TECHNICIAN) White Blood 9.1 4.5 - 11.0 K/UL [facility] Cells RBC 3.30 (L) 4.4 - 5.5 M/UL [facility] Hemoglobin 10.1 (L) 13.5 - 16.5 GM/DL [facility] Hematocrit 29.9 (L) 40 - 50 % [facility] MCV 90.6 80 - 100 FL [facility] MCH 30.6 26 - 34 PG [facility] MCHC 33.8 32.0 - 36.0 G/DL [facility] RDW 15.5 (H) 11 - 15 % [facility] Platelet Count 109 (L) 150 - 400 K/UL [facility] MPV 9.3 7 - 11 [facility] Specimen Blood (substance) Performing Organization Address City/[facility]/ZIP Code P dg Number [facility] [address] [place] [address] * PV CAROTID ARTERY DUPLEX SCAN (07/15/2021 9:04 AM EQUIPMENT SERVICE TECHNICIAN) LEFT CCA DIST 0.83 m/s OTHER OUTSIDE [...] ECHO PV Leisa Frias, Student OTHER OUTSIDE DOOR TO DOOR SALES REPRESENTATIVE LAB Cardiology Sherri [employer] OTHER OUTSIDE Ultrasound LAB Machine RIGHT ICA/CCA 0.95 m/s OTHER OUTSIDE SYS LAB LEFT ICA/CCA 0.92 m/s OTHER OUTSIDE SYS LAB Modality Anatomical Region Laterality Ultrasound Specimen Narrative OTHER OUTSIDE LAB - 07/15/2021 10:14 AM EQUIPMENT SERVICE TECHNICIAN 1. Minimal atheromatous changes visualized in bilateral common and internal carotid arteries without hemodynamically significant (>50%) stenosis. 2. There is normal antegrade flow in tahmina ateral vertebral arteries 3. No evidence of proximal subclavian st enosis bilaterally No prior studies available for comparison. Performing Organization Address City/[facility]/ZIP Code P dg Number OTHER OUTSIDE LAB * PHOSPHORUS (07/15/2021 2:55 AM EQUIPMENT SERVICE TECHNICIAN) Phosphorus 2.0 2.0 - 4.5 MG/DL [facility] Specimen Blood (substance) Performing Organization Address City/[facility] P dg Number [facility] [address] [place] [address] * MAGNESIUM (07/15/2021 2:55 AM EQUIPMENT SERVICE TECHNICIAN) Magnesium 2.3 1.6 - 2.6 mg/dL [facility] Specimen Blood (substance) Performing Organization Address [facility] P dg Number [facility] [address] [place] [address] * (ABNORMAL) BASIC METABOLIC PANEL (07/15/2021 2:55 AM EQUIPMENT SERVICE TECHNICIAN) Sodium 140 137 - 147 MMOL/L [facility] Potassium 4.9 3.5 - 5.1 MMOL/L [facility] Chloride 107 98 - 110 MMOL/L [facility] CO2 24 21 - 30 MMOL/L [facility] Anion Gap 9 3 - 12 [facility] Glucose 108 (H) 70 - 100 MG/DL [facility] Blood Urea 30 (H) 7 - 25 MG/DL [facility] Nitrogen Creatinine 0.95 0.4 - 1.24 MG/DL [facility] Calcium 7.7 (L) 8.5 - 10.6 MG/DL [facility] eGFR >60Comment: eGFR calculated >60 mL/min [facility] using the CKD-EPIcr_R equation Specimen Blood (substance) Performing Organization Address City/[facility] Code P dg Number [facility] [address] [place] [address] * (ABNORMAL) CBC (07/15/2021 2:55 AM EQUIPMENT SERVICE TECHNICIAN) White Blood 9.5 4.5 - 11.0 K/UL [facility] Cells RBC 3.21 (L) 4.4 - 5.5 M/UL [facility] Hemoglobin 9.6 (L) 13.5 - 16.5 GM/DL [facility] Hematocrit 28.7 (L) 40 - 50 % [facility] MCV 89.3 80 - 100 FL [facility] MCH 29.8 26 - 34 PG [facility] MCHC 33.4 32.0 - 36.0 G/DL [facility] RDW 15.3 (H) 11 - 15 % [facility] Platelet Count 100 (L) 150 - 400 K/[facility] MPV 9.3 7 - 11 FL [facility] Specimen Blood (substance) Performing Organization Address City/[facility]/ZIP Code P dg Number [facility] [address] [place] [address] * (ABNORMAL) POC GLUCOSE (07/14/2021 11:04 AM EQUIPMENT SERVICE TECHNICIAN) Glucose, POC 118 (H) 70 - 100 MG/DL [facility] Specimen Performing Organization Address City/[facility] Code P dg Number [facility] [address] [place] [address] * HEMOGLOBIN A1C (07/14/2021 6:45 AM EQUIPMENT SERVICE TECHNICIAN) Hemoglobin A1C 5.6 4.0 - 6.0 % [facility] Comment: The ADA recommends that most patients with type 1 and type 2 diabetes maintain an A1c level <7%. Specimen Blood (substance) Performing Organization Address [facility] P dg Number [facility] [address] [place] [address] * (ABNORMAL) LIPID PROFILE (07/14/2021 6:45 AM EQUIPMENT SERVICE TECHNICIAN) Cholesterol 87 <200 MG/DL [facility] [...] mg/dL. Specimen Blood (substance) Performing Organization Address [facility] P dg Number [facility] [address] [place] [address] * (ABNORMAL) TROPONIN-I (07/14/2021 5:56 AM EQUIPMENT SERVICE TECHNICIAN) Troponin-I 0.60 (H) 0.0 - 0.05 NG/ML [facility] Specimen Blood (substance) Performing Organization Address [facility] P dg Number [facility] [address] [place] [address] * PHOSPHORUS (07/14/2021 3:11 AM EQUIPMENT SERVICE TECHNICIAN) Phosphorus 3.0 2.0 - 4.5 MG/DL [facility] Specimen Blood (substance) Performing Organization Address [facility] P dg Number [facility] [address] [place] [address] * MAGNESIUM (07/14/2021 3:11 AM EQUIPMENT SERVICE TECHNICIAN) Magnesium 2.5 1.6 - 2.6 mg/dL [facility] Specimen Blood (substance) Performing Organization Address [facility] Code P dg Number [facility] [address] [place] [address] * (ABNORMAL) BASIC METABOLIC PANEL (07/14/2021 3:11 AM EQUIPMENT SERVICE TECHNICIAN) Pathologist [facility] Sodium 139 137 - 147 MMOL/L [facility] Potassium 4.7 3.5 - 5.1 MMOL/L [facility] Chloride 107 98 - 110 MMOL/L [facility] CO2 24 21 - 30 MMOL/L [facility] Anion Gap 8 3 - 12 [facility] Glucose 105 (H) 70 - 100 MG/DL [facility] Blood Urea 41 (H) 7 - 25 MG/DL [facility] Nitrogen Creatinine 1.31 (H) 0.4 - 1.24 MG/DL [facility] Calcium 7.5 (L) 8.5 - 10.6 MG/DL [facility] eGFR 57 (L)Comment: eGFR calculated >60 mL/min [facility] using the CKD-EPIcr_R equation Specimen Blood (substance) Performing Organization Address City/[facility]/ZIP Code P dg Number [facility] [address] [place] [address] * (ABNORMAL) CBC (07/14/2021 3:11 AM EQUIPMENT SERVICE TECHNICIAN) Pathologist [facility] White Blood 10.6 4.5 - 11.0 K/UL [facility] Cells RBC 2.86 (L) 4.4 - 5.5 M/UL [facility] Hemoglobin 8.5 (L) 13.5 - 16.5 GM/DL [facility] Hematocrit 25.3 (L) 40 - 50 % [facility] MCV 88.5 80 - 100 FL [facility] MCH 29.7 26 - 34 PG [facility] MCHC 33.6 32.0 - 36.0 G/DL [facility] RDW 15.3 (H) 11 - 15 % [facility] Platelet Count 91 (L) 150 - 400 K/UL [facility] MPV 9.2 7 - 11 FL [facility] Specimen Blood (substance) Performing Organization Address City/State/ZIP Code P dg Number [facility] [address] [place] [address] * TRANSFUSE RBC'S (07/14/2021 2:52 AM EQUIPMENT SERVICE TECHNICIAN) Specimen Blood (substance) * TRANSFUSE RBC'S (07/14/2021 2:52 AM EQUIPMENT SERVICE TECHNICIAN) Specimen Blood (substance) * (ABNORMAL) TROPONIN-I (07/14/2021 12:20 AM EQUIPMENT SERVICE TECHNICIAN) Troponin-I 0.73 (H) 0.0 - 0.05 NG/ML MAIN LAB Specimen Blood (substance) Performing Organization Address City/State/ZIP Code P dg Number MAIN LAB [address] [place] [address] * MRA HEAD WO CONTRAST (07/13/2021 10:54 PM EQUIPMENT SERVICE TECHNICIAN) Modality Anatomical Region Laterality Magnetic Resonance Head Specimen Addenda Addendum by Maurice Parks MD on 07/14/2021 4:55 AM EQUIPMENT SERVICE TECHNICIAN Finalized by Maurice Parks M.D. on 07/14/2021 [...] Hicks M.D. on 07/14/2021 12:35 AM. Impressions RAD RESULTS - 07/14/2021 12:32 AM EQUIPMENT SERVICE TECHNICIAN MR brain: 1. Redemonstration of recent multifoca l cerebral and cerebellar infarcts with a dominant large left [employer] territory infarct. This appears represent a combination [...] MRA head: 1. Occlusion of the left [employer] at the leve l of the mid to distal P2 segment (corresponding to the large left [employer] territory infarct). 2. Otherwise patent major intracranial a rteries without focal stenosis. By my electronic signature, I attest that I have personally reviewed the images for this examination and formulated the interpretations and opinions expressed in this report Narrative [facility] RAD RESULTS - 07/14/2021 12:32 AM EQUIPMENT SERVICE TECHNICIAN EXAM: MRI AND MRA BRAIN HISTORY: left [employer] infarct, TECHNIQUE: Multiplanar and multisequence MR imaging of the head was performed. This was done without contrast. 3D ssyu-zq-jjwsxq images of the [place] was performed without contrast. MRA [...] effect. The major vascular flow-voids of the [place] and dural venous sinuses are unremarkable. Redemonstration of recent large left [employer] territory infarct. There are additional multifocal smaller [...] occlusion/loss of flow void within the left [employer] at the level of the mid to distal P2 segment. Portions of the left P3 and P4 segments also show absent flow voids. The anterior, middle, and right posterior cerebral arteries are patent without focal narrowing. No aneurysm or arteriovenous malformation is identified. Procedure Note Maurice Parks MD - 07/14/2021 EXAM: MRI AND MRA BRAIN HISTORY: left [employer] infarct, TECHNIQUE: Multiplanar and multisequence MR imaging of the head was performed. This was done without contrast. 3D euha-qz-nyhzkq images of the [place] was performed without contrast. MRA [...] effect. The major vascular flow-voids of the [place] and dural venous sinuses are unremarkable. Redemonstration of recent large left [employer] territory infarct. There are additional multifocal smaller [...] occlusion/loss of flow void within the left [employer] at the level of the mid to distal P2 segment. Portions of the left P3 and P4 segments also show absent flow voids. The anterior, middle, and right posterior cerebral arteries are patent without focal narrowing. No aneurysm or arteriovenous malformation is identified. IMPRESSION MR brain: 1. 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 This appears represent a combination [...] MRA head: 1. Occlusion of the left [employer] at the leve l of the mid to distal P2 segment (corresponding to the large left [employer] territory infarct). 2. Otherwise patent major intracranial a rteries without focal stenosis. By my electronic signature, I attest that I have personally reviewed the images for this examination and formulated the interpretations and opinions expressed in this report Performing Organization Address City/State/ZIP Code P dg Number [facility] RAD RESULTS * MRI HEAD WO CONTRAST (07/13/2021 10:35 PM EQUIPMENT SERVICE TECHNICIAN) Modality Anatomical Region Laterality Magnetic Resonance Head Specimen Addenda Addendum by Maurice Parks MD on 07/14/2021 4:55 AM EQUIPMENT SERVICE TECHNICIAN Finalized by Maurice Parks M.D. on 07/14/2021 [...] [facility] RAD RESULTS - 07/14/2021 12:32 AM EQUIPMENT SERVICE TECHNICIAN MR brain: 1. Redemonstration of recent multifoca l cerebral and cerebellar infarcts with a dominant large left [employer] territory infarct. This appears represent a combination [...] MRA head: 1. Occlusion of the left [employer] at the leve l of the mid to distal P2 segment (corresponding to the large left [employer] territory infarct). 2. Otherwise patent major intracranial a rteries without focal stenosis. By my electronic signature, I attest that I have personally reviewed the images for this examination and formulated the interpretations and opinions expressed in this report Narrative [facility] RAD RESULTS - 07/14/2021 12:32 AM EQUIPMENT SERVICE TECHNICIAN EXAM: MRI AND MRA BRAIN HISTORY: left [employer] infarct, TECHNIQUE: Multiplanar and multisequence MR imaging of the head was performed. This was done without contrast. 3D ofyg-ev-qzyimx images of the [place] was performed without contrast. MRA [...] effect. The major vascular flow-voids of the [place] and dural venous sinuses are unremarkable. Redemonstration of recent large left [employer] territory infarct. There are additional multifocal smaller [...] occlusion/loss of flow void within the left [employer] at the level of the mid to distal P2 segment. Portions of the left P3 and P4 segments also show absent flow voids. The anterior, middle, and right posterior cerebral arteries are patent without focal narrowing. No aneurysm or arteriovenous malformation is identified. Procedure Note Maurice Parks MD - 07/14/2021 EXAM: MRI AND MRA BRAIN HISTORY: left [employer] infarct, TECHNIQUE: Multiplanar and multisequence MR imaging of the head was performed. This was done without contrast. 3D mufh-nb-qprgfn images of the [place] was performed without contrast. MRA [...] effect. The major vascular flow-voids of the [place] and dural venous sinuses are unremarkable. Redemonstration of recent large left [employer] territory infarct. There are additional multifocal smaller [...] occlusion/loss of flow void within the left [employer] at the level of the mid to distal P2 segment. Portions of the left P3 and P4 segments also show absent flow voids. The anterior, middle, and right posterior cerebral arteries are patent without focal narrowing. No aneurysm or arteriovenous malformation is identified. IMPRESSION MR brain: 1. 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 This appears represent a combination [...] MRA head: 1. Occlusion of the left [employer] at the leve l of the mid to distal P2 segment (corresponding to the large left [employer] territory infarct). 2. Otherwise patent major intracranial a rteries without focal stenosis. By my electronic signature, I attest that I have personally reviewed the images for this examination and formulated the interpretations and opinions expressed in this report Performing Organization Address [facility] P dg Number [facility] RAD RESULTS * BLOOD GASES, ARTERIAL (07/13/2021 9:21 PM EQUIPMENT SERVICE TECHNICIAN) Pathologist [facility] pH-Arterial 7.43 7.35 - 7.45 MAIN LAB pCO2-Arterial 40 35 - 45 MMHG [facility] pO2-Arterial 89 80 - 100 MMHG [facility] Base 2.1 MMOL/L [facility] Excess-Arterial O2 Sat-Arterial 97.3 95 - 99 % [facility] Bicarbonate-ART 26.3 21 - 28 MMOL/L MAIN LAB -Daniel Specimen Blood, arterial - Blood (substance) Performing Organization Address [facility] P dg Number [facility] [address] [place] [address] * LACTIC ACID(LACTATE) (07/13/2021 9:21 PM EQUIPMENT SERVICE TECHNICIAN) Pathologist [facility] Lactic Acid 0.9 0.5 - 2.0 MMOL/L MAIN LAB Specimen Blood (substance) Performing Organization Address [facility] P dg Number [facility] [address] [place] [address] * IONIZED CALCIUM (07/13/2021 9:21 PM EQUIPMENT SERVICE TECHNICIAN) Pathologist [facility] Ionized Calcium 1.17 1.0 - 1.3 MMOL/L MAIN LAB Specimen Blood (substance) Performing Organization Address [facility] P dg Number [facility] [address] [place] [address] * PHOSPHORUS (07/13/2021 9:21 PM EQUIPMENT SERVICE TECHNICIAN) Phosphorus 3.1 2.0 - 4.5 MG/DL [facility] Specimen Blood (substance) Performing Organization Address [facility] Code P dg Number [facility] [address] [place] [address] * MAGNESIUM (07/13/2021 9:21 PM EQUIPMENT SERVICE TECHNICIAN) Magnesium 2.5 1.6 - 2.6 mg/dL [facility] Specimen Blood (substance) Performing Organization Address [facility] P dg Number [facility] [address] [place] [address] * (ABNORMAL) BASIC METABOLIC PANEL (07/13/2021 9:21 PM EQUIPMENT SERVICE TECHNICIAN) Sodium 139 137 - 147 MMOL/L [facility] Potassium 4.5 3.5 - 5.1 MMOL/L [facility] Chloride 106 98 - 110 MMOL/L [facility] CO2 27 21 - 30 MMOL/L [facility] Anion Gap 6 3 - 12 [facility] Glucose 110 (H) 70 - 100 MG/DL [facility] Blood Urea 41 (H) 7 - 25 MG/DL [facility] Nitrogen Creatinine 1.43 (H) 0.4 - 1.24 MG/DL [facility] Calcium 8.0 (L) 8.5 - 10.6 MG/DL [facility] eGFR 52 (L)Comment: eGFR calculated >60 mL/min [facility] using the CKD-EPIcr_R equation Specimen Blood (substance) Performing Organization Address [facility] Code P dg Number [facility] [address] [place] [address] * (ABNORMAL) CBC (07/13/2021 9:21 PM EQUIPMENT SERVICE TECHNICIAN) White Blood 10.4 4.5 - 11.0 K/UL [facility] Cells RBC 2.46 (L) 4.4 - 5.5 M/UL [facility] Hemoglobin 7.6 (L) 13.5 - 16.5 GM/DL [facility] Hematocrit 21.7 (L) 40 - 50 % [facility] MCV 88.3 80 - 100 FL [facility] MCH 30.7 26 - 34 PG [facility] MCHC 34.8 32.0 - 36.0 G/DL [facility] RDW 14.7 11 - 15 % [facility] Platelet Count 87 (L) 150 - 400 K/UL [facility] MPV 9.0 7 - 11 FL [facility] Specimen Blood (substance) Performing Organization Address City/[facility]/ZIP Code P dg Number [facility] [address] [place] [address] * (ABNORMAL) TROPONIN-I (07/13/2021 6:01 PM EQUIPMENT SERVICE TECHNICIAN) Troponin-I 0.84 (H) 0.0 - 0.05 NG/ML [facility] Specimen Performing Organization Address City/[facility]/ZIP Code P dg Number [facility] [address] [place] [address] * (ABNORMAL) TROPONIN-I (07/13/2021 12:17 PM EQUIPMENT SERVICE TECHNICIAN) Troponin-I 0.67 (H) 0.0 - 0.05 NG/ML [facility] Specimen Blood (substance) Performing Organization Address City/[facility] P dg Number [facility] [address] [place] [address] * CT HEAD WO CONTRAST (07/13/2021 11:54 AM EQUIPMENT SERVICE TECHNICIAN) Modality Anatomical Region Laterality Computed Tomography Head Specimen Impressions [facility] RAD RESULTS - 07/13/2021 12:16 PM EQUIPMENT SERVICE TECHNICIAN 1. 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 2. No evidence of hemorrhagic conversi on, midline shift, or herniation. Findings were discussed with Dr. Garcia by myself via telephone at 12:13 PM on 07/13/2021. Finalized by Dwaine Vo DO on 07/13/2021 12:16 PM. Dictated by Dwaine Vo DO on 07/13/2021 12:04 PM. Narrative [facility] RAD RESULTS - 07/13/2021 12:16 PM EQUIPMENT SERVICE TECHNICIAN EXAM: CT HEAD HISTORY: Rule out stroke, visual difficulties. TECHNIQUE: Multiple contiguous axial images were obtained of the brain without intravenous contrast. COMPARISON: None. FINDINGS: Moderate to large focal area of parenchymal hypodensity, pardo-white matter dedifferentiation, and sulcal compression in the left posterior mesial temporal- occipital [employer] territory with additional smaller foci of parenchymal hypodensity throughout the bilateral cerebral hemispheres (notably the right caudate, left frontal and parietal cortices, and posterior right occipital lobe), compatible with acute to subacute infarcts. There are also several small age-indeterminate bilateral cerebellar infarcts, the majority of which appear recent. Localize cerebral mass effect associated with the dominant left [employer] territory infarct. No evidence of acute intracranial [...] in the left posterior mesial temporal- occipital [employer] territory with additional smaller foci of parenchymal hypodensity throughout the bilateral cerebral hemispheres (notably the right caudate, left frontal and parietal cortices, and posterior right occipital lobe), compatible with acute to subacute infarcts. There are also several small age-indeterminate bilateral cerebellar infarcts, the majority of which appear recent. Localize cerebral mass effect associated with the dominant left [employer] territory infarct. No evidence of acute intracranial [...] with a dominant moderate to large left [employer] territory infarct. 2. No evidence of hemorrhagic [...] DOPPLER ECHO W/ CONTRAST (07/13/2021 8:00 AM EQUIPMENT SERVICE TECHNICIAN) IVS 0.85 0.6 - 1.0 cm OTHER [...] 34 OTHER OUTSIDE Index LAB Cardiology Siemens [id number] OTHER OUTSIDE Ultrasound LAB Machine Left Ventricle 36 49 - 115 g/m2 OTHER OUTSIDE Mass Index LAB TDI Medial e' 0.090 m/s OTHER OUTSIDE LAB Medial E/E' 14.00 OTHER OUTSIDE ratio LAB TR PEAK 2.9 m/s OTHER OUTSIDE VELOCITY LAB RV SYSTOLIC 34 OTHER OUTSIDE PRESSURE LAB BECKER'S 70 % OTHER OUTSIDE BIPLANE EF LAB Modality Anatomical Region Laterality Ultrasound Specimen Narrative OTHER OUTSIDE LAB - 07/13/2021 8:28 AM EQUIPMENT SERVICE TECHNICIAN Left Ventricle: The left ventricular size is normal. Concentric remodeling. The left ventricular systolic function is normal. The ejection fraction by Becker's biplane method is 70%. There are no [...] * CHEST SINGLE VIEW (07/13/2021 7:13 AM EQUIPMENT SERVICE TECHNICIAN) Modality Anatomical Region Laterality Computed Radiography Chest Specimen Impressions [facility] RAD RESULTS - 07/13/2021 9:23 AM EQUIPMENT SERVICE TECHNICIAN 1. Persistent tiny lucency within the ri ght lung apex that is suggestive of a tiny pneumothorax. Follow-up inspiration and expiration chest x-ray 2. Unchanged small right pleural effusio n and right lung base consolidation. Finalized by Bernard Sheikh M.D. on 07/13/2021 9:23 AM. Dictated by Bernard Sheihk M.D. on 07/13/2021 9:18 AM. Narrative [facility] RAD RESULTS - 07/13/2021 9:23 AM EQUIPMENT SERVICE TECHNICIAN CHEST SINGLE VIEW Clinical Indication: R/o PTX. [...] P dg Number [facility] RAD RESULTS * (ABNORMAL) TROPONIN-I (07/13/2021 5:52 AM EQUIPMENT SERVICE TECHNICIAN) Troponin-I 0.49 (H) 0.0 - 0.05 NG/ML [facility] Specimen Blood (substance) Performing Organization Address City/State/ZIP Code P dg Number [facility]IN [facility] [address] [address] * CHEST SINGLE VIEW (07/13/2021 3:33 AM EQUIPMENT SERVICE TECHNICIAN) Modality Anatomical Region Laterality Computed Radiography Chest Specimen Addenda Addendum by Maurice Parks MD on 07/13/2021 5:18 AM EQUIPMENT SERVICE TECHNICIAN Finalized by Maurice Parks M.D. on 07/13/2021 4:25 AM. Dictated by Maurice Hicks M.D. on 07/13/2021 4:07 AM.Addendum: Dr. Hicks discussed these findings with the patient's nurse Priti by telephone at 4:27 AM 07/13/2021 Approved by Maurice Hicks M.D. on 07/13/2021 4:28 AM By my electronic signature, I attest that I have personally reviewed the images for this examination and formulated the interpretations and opinions expressed in this report Finalized by Maurice Parks M.D. on 07/13/2021 5:15 AM. Dictated by Maurice Hicks M.D. on 07/13/2021 4:26 AM. Impressions [facility] RAD RESULTS - 07/13/2021 4:25 AM EQUIPMENT SERVICE TECHNICIAN 1. Mildly low right lung volume with r ight mid to lower lung opacities, which may represent pneumonia and/or atelectasis. A small right pleural effusion is also suspected. 2. Suspected small right apical pneumo thorax. A short-term follow-up exam in 2 to 4 hours (or sooner if clinically indicated) is recommended to see if this persists or worsens. By my electronic signature, I attest that I have personally reviewed the images for this examination and formulated the interpretations and opinions expressed in this report Narrative [facility] RAD RESULTS - 07/13/2021 4:25 AM EQUIPMENT SERVICE TECHNICIAN CHEST SINGLE VIEW INDICATION: Altered mental status. COMPARISON STUDY: CT chest 12/29/2020 FINDINGS: Lungs/Pleura: Mildly low right lung volume with hazy right midlung opacity and more dense right lower lung opacity with obscuration of the right diaphragm. Suspected small right apical pneumothorax with possible pleural line between the right third and fourth posterior ribs. Poor delineation of the right costophrenic angle, suspect for a small right pleural effusion. No pulmonary venous congestion. Heart and Mediastinum: Heart size is normal with unremarkable mediastinal contours. Procedure Note Maurice Parks MD - 07/13/2021 CHEST SINGLE VIEW INDICATION: Altered mental status. COMPARISON STUDY: CT chest 12/29/2020 FINDINGS: Lungs/Pleura: Mildly low right lung volume with hazy right midlung opacity and more dense right lower lung opacity with obscuration of the right diaphragm. Suspected small right apical pneumothorax with possible pleural line between the right third and fourth posterior ribs. Poor delineation of the right costophrenic angle, suspect for a small right pleural effusion. No pulmonary venous congestion. Heart and Mediastinum: Heart size is normal with unremarkable mediastinal contours. IMPRESSION 1. Mildly low right lung volume with ri ght mid to lower lung opacities, which may represent pneumonia and/or atelectasis. A small right pleural effusion is also suspected. 2. Suspected small right apical pneumot horax. A short-term follow-up exam in 2 to 4 hours (or sooner if clinically indicated) is recommended to see if this persists or worsens. By my electronic signature, I attest that I have personally reviewed the images for this examination and formulated the interpretations and opinions expressed in this report Performing Organization Address City/State/ZIP Code P dg Number [facility] RAD RESULTS * TRANSFUSE PLASMA (FFP) (07/13/2021 3:12 AM EQUIPMENT SERVICE TECHNICIAN) * TRANSFUSE PLASMA (FFP) (07/13/2021 3:12 AM EQUIPMENT SERVICE TECHNICIAN) * AMMONIA (07/13/2021 3:00 AM EQUIPMENT SERVICE TECHNICIAN) Ammonia 34 9 - 35 MCMOL/L [facility] Specimen Blood (substance) Performing Organization Address City/State/ZIP Code P dg Number [facility] [address] [address] * (ABNORMAL) CBC (07/13/2021 2:42 AM EQUIPMENT SERVICE TECHNICIAN) White Blood 16.1 (H) 4.5 - 11.0 K/UL MAIN LAB Cells RBC 2.85 (L) 4.4 - 5.5 M/UL MAIN LAB Hemoglobin 8.6 (L) 13.5 - 16.5 GM/DL MAIN LAB Hematocrit 25.3 (L) 40 - 50 % MAIN LAB MCV 88.9 80 - 100 FL MAIN LAB MCH 30.2 26 - 34 PG MAIN LAB MCHC 34.0 32.0 - 36.0 G/DL MAIN LAB RDW 14.2 11 - 15 % [facility]IN [facility] Platelet Count 122 (L) 150 - 400 K/UL MAIN LAB MPV 8.5 7 - 11 FL MAIN LAB Specimen Blood (substance) Performing Organization Address [facility] P dg Number MAIN LAB [address] [place] [address] * (ABNORMAL) BLOOD GASES, ARTERIAL (07/13/2021 2:32 AM EQUIPMENT SERVICE TECHNICIAN) pH-Arterial 7.40 7.35 - 7.45 MAIN LAB pCO2-Arterial 38 35 - 45 MMHG MAIN LAB pO2-Arterial 72 (L) 80 - 100 MMHG MAIN LAB Base 0.6 MMOL/L MAIN LAB Deficit-Arteria l O2 Sat-Arterial 94.9 (L) 95 - 99 % [facility]IN [facility] Bicarbonate-ART 23.9 21 - 28 MMOL/L MAIN LAB -Daniel Specimen Blood, arterial - Blood (substance) Performing Organization Address [facility] Code P dg Number MAIN LAB [address] [place] [address] * (ABNORMAL) TROPONIN-I (07/13/2021 1:15 AM EQUIPMENT SERVICE TECHNICIAN) Pathologist [facility] Troponin-I 0.37 (H) 0.0 - 0.05 NG/ML MAIN LAB Specimen Performing Organization Address [facility] Code P dg Number MAIN LAB [address] [place] [address] * LACTIC ACID(LACTATE) (07/13/2021 1:15 AM EQUIPMENT SERVICE TECHNICIAN) Pathologist [facility] Lactic Acid 1.3 0.5 - 2.0 MMOL/L [facility] MAIN [facility] Specimen Blood (substance) Performing Organization Address [facility] Code P dg Number [facility] MAIN [facility] [address] [place] [phone] * (ABNORMAL) PHOSPHORUS (07/13/2021 1:15 AM EQUIPMENT SERVICE TECHNICIAN) Phosphorus 5.7 (H) 2.0 - 4.5 MG/DL [facility] MAIN [facility] Specimen Blood (substance) Performing Organization Address [facility] P dg Number [facility]IN [facility] [address] [place] [address] * MAGNESIUM (07/13/2021 1:15 AM EQUIPMENT SERVICE TECHNICIAN) Magnesium 2.5 1.6 - 2.6 mg/dL [facility]IN [facility] Specimen Blood (substance) Performing Organization Address [facility] P dg Number [facility]IN [facility] [address] [place] [phone] * (ABNORMAL) CBC (07/13/2021 1:15 AM EQUIPMENT SERVICE TECHNICIAN) White Blood 18.3 (H) 4.5 - 11.0 K/UL [facility] MAIN [facility] Cells RBC 3.16 (L) 4.4 - 5.5 M/UL [facility]IN [facility] Hemoglobin 9.4 (L) 13.5 - 16.5 GM/DL [facility] MAIN LAB Hematocrit 28.3 (L) 40 - 50 % [facility] MAIN LAB MCV 89.6 80 - 100 FL [facility] MAIN LAB MCH 29.8 26 - 34 PG [facility] MAIN LAB MCHC 33.3 32.0 - 36.0 G/DL [facility] MAIN LAB RDW 14.2 11 - 15 % [facility] MAIN LAB Platelet Count 143 (L) 150 - 400 K/UL [facility]IN [facility] MPV 9.1 7 - 11 FL [facility] MAIN [facility] Specimen Blood (substance) Performing Organization Address [facility] P dg Number [facility] MAIN [facility] [address] [place] [phone] * (ABNORMAL) BASIC METABOLIC PANEL (07/13/2021 1:15 AM EQUIPMENT SERVICE TECHNICIAN) Sodium 141 137 - 147 MMOL/L [facility] MAIN LAB Potassium 4.9 3.5 - 5.1 MMOL/L [facility] MAIN [facility] Chloride 105 98 - 110 MMOL/L [facility] MAIN [facility] CO2 22 21 - 30 MMOL/L [facility]IN [facility] Anion Gap 14 (H) 3 - 12 [facility] MAIN [facility] Glucose 126 (H) 70 - 100 MG/DL [facility] MAIN [facility] Blood Urea 36 (H) 7 - 25 MG/DL [facility] MAIN [facility] Nitrogen Creatinine 1.81 (H) 0.4 - 1.24 MG/DL [facility] MAIN [facility] Calcium 8.4 (L) 8.5 - 10.6 MG/DL [facility] MAIN [facility] eGFR 39 (L)Comment: eGFR calculated >60 mL/min [facility] MAIN [facility] using the CKD-EPIcr_R equation Specimen Blood (substance) Performing Organization Address [facility]/ZIP [facility] P dg Number [facility] MAIN [facility] [address] [place] [phone] * TEG WITH KAOLIN (07/13/2021 1:15 AM EQUIPMENT SERVICE TECHNICIAN) MA Kaolin 60.6 >49.9 MM REFERENCE LAB R Kaolin 3.1 <9.1 MIN REFERENCE LAB RK Kaolin 4.5 <12.1 MIN REFERENCE LAB K Kaolin 1.4 <3.1 MIN REFERENCE LAB Angle Kaolin 70.2 >54.9 DEG REFERENCE LAB Lysis30 0.0 <8.1 % REFERENCE LAB Specimen Blood (substance) Performing Organization Address [facility] P dg Number REFERENCE LAB REFERENCE LAB See results for address. * IONIZED CALCIUM (07/13/2021 1:15 AM EQUIPMENT SERVICE TECHNICIAN) Ionized Calcium 1.09 1.0 - 1.3 MMOL/L MAIN LAB Specimen Blood (substance) Performing Organization Address [facility] P dg Number KU MAIN LAB [address] [place] [address] * TRANSFUSE PLASMA (FFP) (07/13/2021 12:51 AM EQUIPMENT SERVICE TECHNICIAN) * TRANSFUSE PLASMA (FFP) (07/13/2021 12:51 AM EQUIPMENT SERVICE TECHNICIAN) * TRANSFUSE CRYOPRECIPITATE (07/13/2021 12:34 AM EQUIPMENT SERVICE TECHNICIAN) * TRANSFUSE CRYOPRECIPITATE (07/13/2021 12:34 AM EQUIPMENT SERVICE TECHNICIAN) * PREPARE PLASMA (FFP) (07/13/2021 12:11 AM EQUIPMENT SERVICE TECHNICIAN) Units Ordered 2 KU MAIN LAB Unit Number [id number] KU MAIN LAB Blood Component THAWED PLASMA KU MAIN LAB Type Unit Division 00 KU MAIN LAB Status OF Unit TRANSFUSED KU MAIN LAB ISSUE DATE TIME KU MAIN LAB PRODUCT CODE Y2859R87 KU MAIN LAB BLOOD TYPE B POS KU MAIN LAB CODING STATUS 7300 KU MAIN LAB BLOOD KU MAIN LAB EXPIRATION DATE Transfusion OK TO TRANSFUSE KU MAIN LAB Status Unit Number [id number] KU MAIN LAB Blood Component APHERESIS PLASMA THAWED KU MAIN LAB Type Unit Division 00 KU MAIN LAB Status OF Unit TRANSFUSED KU MAIN LAB ISSUE DATE TIME KU MAIN LAB PRODUCT CODE S4449P78 KU MAIN LAB BLOOD TYPE B POS KU MAIN LAB CODING STATUS 7300 KU MAIN LAB BLOOD KU MAIN LAB EXPIRATION DATE Transfusion OK TO TRANSFUSE KU MAIN LAB Status Specimen Other (Specify) Performing Organization Address City/State/[facility] Code P dg Number MAIN LAB [address] [place] [address] * TRANSFUSE APHERESIS PLATELETS (07/13/2021 12:07 AM EQUIPMENT SERVICE TECHNICIAN) * TRANSFUSE APHERESIS PLATELETS (07/13/2021 12:07 AM EQUIPMENT SERVICE TECHNICIAN) * TRANSFUSE RBC'S (07/12/2021 11:29 PM EQUIPMENT SERVICE TECHNICIAN) Specimen Blood (substance) * TRANSFUSE RBC'S (07/12/2021 11:29 PM EQUIPMENT SERVICE TECHNICIAN) Specimen Blood (substance) * TRANSFUSE RBC'S (07/12/2021 11:28 PM EQUIPMENT SERVICE TECHNICIAN) Specimen Blood (substance) * TRANSFUSE RBC'S (07/12/2021 11:28 PM EQUIPMENT SERVICE TECHNICIAN) Specimen Blood (substance) * (ABNORMAL) CBC (07/12/2021 10:50 PM EQUIPMENT SERVICE TECHNICIAN) White Blood 22.2 (H) 4.5 - 11.0 K/UL KU MAIN LAB Cells RBC 3.34 (L) 4.4 - 5.5 M/UL KU MAIN LAB Hemoglobin 10.2 (L) 13.5 - 16.5 GM/DL KU MAIN LAB Hematocrit 30.3 (L) 40 - 50 % KU MAIN LAB MCV 90.5 80 - 100 FL KU MAIN LAB MCH 30.4 26 - 34 PG KU MAIN LAB MCHC 33.6 32.0 - 36.0 G/DL KU MAIN LAB RDW 14.0 11 - 15 % KU MAIN LAB Platelet Count 111 (L) 150 - 400 K/UL KU MAIN LAB MPV 8.5 7 - 11 FL KU MAIN LAB Specimen Blood (substance) Performing Organization Address City/State/ZIP Code P dg Number KU MAIN LAB [address] [place] [address] * PREPARE APHERESIS PLATELETS (07/12/2021 10:20 PM EQUIPMENT SERVICE TECHNICIAN) Units Ordered 1 KU MAIN LAB Unit Number [id number] KU MAIN LAB Blood Component APHERESIS PLT,LEUKO REDUCED, KU MAIN LAB Type BACTERIAL MONITOR 7D, IRRADIATED,2ND CONT Unit Division 00 KU MAIN LAB Status OF Unit TRANSFUSED KU MAIN LAB ISSUE DATE TIME KU MAIN LAB PRODUCT CODE [id number] KU MAIN LAB BLOOD TYPE A NEG KU MAIN LAB CODING STATUS 0600 KU MAIN LAB BLOOD [id number] KU MAIN LAB EXPIRATION DATE Transfusion OK TO TRANSFUSE KU MAIN LAB Status Specimen Other (Specify) Performing Organization Address [facility] P dg Number KU MAIN LAB [address] [place] [address] * PREPARE CRYOPRECIPITATE (07/12/2021 9:55 PM EQUIPMENT SERVICE TECHNICIAN) Units Ordered 1 MAIN LAB Unit Number [id number] KU MAIN LAB Blood Component CRY 5 POOLED KU MAIN LAB Type Unit Division 00 KU MAIN LAB Status OF Unit TRANSFUSED KU MAIN LAB ISSUE DATE TIME KU MAIN LAB PRODUCT CODE [id number] KU MAIN LAB BLOOD TYPE O POS MAIN LAB CODING STATUS 5100 KU MAIN LAB BLOOD [id number] MAIN LAB EXPIRATION DATE Transfusion OK TO TRANSFUSE KU MAIN LAB Status Specimen Other (Specify) Performing Organization Address [facility]/ZIP [facility] P dg Number KU MAIN LAB [address] [place] [address] * (ABNORMAL) TEG WITH KAOLIN (07/12/2021 9:15 PM EQUIPMENT SERVICE TECHNICIAN) MA Kaolin 44.2 (L) >49.9 MM REFERENCE LAB R Kaolin 3.2 <9.1 MIN REFERENCE LAB RK Kaolin 7.4 <12.1 MIN REFERENCE LAB K Kaolin 4.2 (H) <3.1 MIN REFERENCE LAB Angle Kaolin 48.0 (L) >54.9 DEG REFERENCE LAB Lysis30 0.0 <8.1 % REFERENCE LAB Specimen Blood (substance) Performing Organization Address City/[facility]/ZIP Code P dg Number REFERENCE LAB REFERENCE LAB See results for address. * IONIZED CALCIUM (07/12/2021 9:15 PM EQUIPMENT SERVICE TECHNICIAN) Ionized Calcium 1.02 1.0 - 1.3 MMOL/L KU MAIN LAB Specimen Blood (substance) Performing Organization Address [facility] P dg Number KU MAIN LAB [address] [place] [address] * (ABNORMAL) PHOSPHORUS (07/12/2021 9:15 PM EQUIPMENT SERVICE TECHNICIAN) Phosphorus 5.6 (H) 2.0 - 4.5 MG/DL KU MAIN LAB Specimen Blood (substance) Performing Organization Address [facility] P dg Number KU MAIN LAB [address] [place] [address] * MAGNESIUM (07/12/2021 9:15 PM EQUIPMENT SERVICE TECHNICIAN) Magnesium 2.5 1.6 - 2.6 mg/dL KU MAIN LAB Specimen Blood (substance) Performing Organization Address [facility] P dg Number KU MAIN LAB [address] [place] [address] * (ABNORMAL) COMPREHENSIVE METABOLIC PANEL (07/12/2021 9:15 PM EQUIPMENT SERVICE TECHNICIAN) Sodium 141 137 - 147 MMOL/L KU [...] Albumin 2.8 (L) 3.5 - 5.0 G/DL KU MAIN LAB Alk Phosphatase 55 25 - 110 U/L KU MAIN LAB AST (SGOT) 23 7 - 40 U/L KU MAIN LAB CO2 20 (L) 21 - 30 MMOL/L KU MAIN LAB ALT (SGPT) 8 7 - 56 U/L KU MAIN LAB Anion Gap 15 (H) 3 - 12 KU MAIN LAB eGFR 41 (L)Comment: eGFR calculated >60 mL/min MAIN LAB using the CKD-EPIcr_R equation Specimen Blood (substance) Performing Organization Address [facility] Code P dg Number MAIN LAB [address] [place] [address] * (ABNORMAL) CBC (07/12/2021 9:15 PM EQUIPMENT SERVICE TECHNICIAN) [facility] White Blood 21.4 (H) 4.5 - 11.0 K/UL MAIN LAB Cells RBC 3.01 (L) 4.4 - 5.5 M/UL MAIN LAB Hemoglobin 9.0 (L) 13.5 - 16.5 GM/DL MAIN LAB Hematocrit 27.5 (L) 40 - 50 % MAIN LAB MCV 91.4 80 - 100 FL MAIN LAB MCH 29.8 26 - 34 PG MAIN LAB MCHC 32.6 32.0 - 36.0 G/DL MAIN LAB RDW 14.2 11 - 15 % MAIN LAB Platelet Count 135 (L) 150 - 400 K/UL MAIN LAB MPV 9.2 7 - 11 FL MAIN LAB Specimen Blood (substance) Performing Organization Address [facility] P dg Number MAIN LAB [address] [place] [address] * (ABNORMAL) POC GLUCOSE (07/12/2021 8:51 PM EQUIPMENT SERVICE TECHNICIAN) [facility] Glucose, POC 116 (H) 70 - 100 MG/DL MAIN LAB Specimen Performing Organization Address [facility] Code P dg Number MAIN LAB [address] [place] [address] * (ABNORMAL) POC SODIUM (07/12/2021 8:50 PM EQUIPMENT SERVICE TECHNICIAN) [facility] Sodium-POC 136 (L) 137 - 147 MMOL/L MAIN LAB Specimen Performing Organization Address [facility]/ZIP Code P dg Number MAIN LAB [address] [place] [address] * POC POTASSIUM (07/12/2021 8:50 PM EQUIPMENT SERVICE TECHNICIAN) [facility] Potassium-POC 5.0 3.5 - 5.1 MMOL/L MAIN LAB Specimen Performing Organization Address [facility] Code P dg Number MAIN LAB [address] [place] [address] * (ABNORMAL) POC HEMATOCRIT (07/12/2021 8:50 PM EQUIPMENT SERVICE TECHNICIAN) Hemoglobin POC 7.8 (L) 13.5 - 16.5 GM/DL KU MAIN LAB Hematocrit POC 23.0 (L) 40 - 50 % KU MAIN LAB Specimen Performing Organization Address City/State/ZIP Code P dg Number KU MAIN LAB [address] [place] [address] * (ABNORMAL) POC BLOOD GAS ARTERIAL (07/12/2021 8:50 PM EQUIPMENT SERVICE TECHNICIAN) PH-ART-POC 7.39 7.35 - 7.45 KU MAIN LAB YAU7-YKC-DEV 32 (L) 35 - 45 MMHG KU MAIN LAB PO2-ART-POC 103 (H) 80 - 100 MMHG KU MAIN LAB Base 6.0 MMOL/L KU MAIN LAB Def-ART-POC O2 Sat-ART-POC 98.0 95 - 99 % KU MAIN LAB Bicarbonate-ART 19.1 (L) 21 - 28 MMOL/L KU MAIN LAB -POC Specimen Performing Organization Address City/[facility] P dg Number MAIN LAB [address] [place] [address] * TYPE & CROSSMATCH (07/12/2021 11:45 AM EQUIPMENT SERVICE TECHNICIAN) Pathologist [facility] Units Ordered 3 KU MAIN LAB Crossmatch 07/15/2021,2359 KU MAIN LAB Expires Record Check FOUND KU MAIN LAB ABO/RH(D) O NEG MAIN LAB Antibody Screen NEG MAIN LAB Electronic YES MAIN LAB Crossmatch Unit Number [id number] MAIN LAB Blood Component RBC,ADSOL,LEUKO REDUCED,2ND KU MAIN L AB Type CONT. Unit Division 00 KU MAIN LAB Status OF Unit TRANSFUSED KU MAIN LAB ISSUE DATE TIME KU MAIN LAB PRODUCT CODE [id number] KU MAIN LAB BLOOD TYPE O NEG MAIN LAB CODING STATUS 9500 KU MAIN LAB BLOOD [id number] KU MAIN LAB EXPIRATION DATE Transfusion OK TO TRANSFUSE KU MAIN LAB Status Crossmatch COMPATIBLE,ELECTRONIC KU MAIN LAB Result Unit Number [id number] MAIN LAB Blood Component RBC,ADSOL,LEUKO REDUCED,2ND KU MAIN L AB Type CONT. Unit Division 00 MAIN LAB Status OF Unit TRANSFUSED KU MAIN LAB ISSUE DATE TIME MAIN LAB PRODUCT CODE [id number] KU MAIN LAB BLOOD TYPE O NEG KU MAIN LAB CODING STATUS 9500 KU MAIN LAB BLOOD [id number] KU MAIN LAB EXPIRATION DATE Transfusion OK TO TRANSFUSE KU MAIN LAB Status Crossmatch COMPATIBLE,ELECTRONIC KU MAIN LAB Result Unit Number [id number] KU MAIN LAB Blood Component RBC,ADSOL,LEUKO REDUCED,2ND KU MAIN L AB Type CONT. Unit Division 00 KU MAIN LAB Status OF Unit TRANSFUSED KU MAIN LAB ISSUE DATE TIME KU MAIN LAB PRODUCT CODE [id number] KU MAIN LAB BLOOD TYPE O NEG KU MAIN LAB CODING STATUS 9500 KU MAIN LAB BLOOD [id number] KU MAIN LAB EXPIRATION DATE Transfusion OK TO TRANSFUSE KU MAIN LAB Status Crossmatch COMPATIBLE,ELECTRONIC KU MAIN LAB Result Specimen Performing Organization Address City/State/ZIP Code P dg Number MAIN LAB [address] [place] [address] * TELEMETRY STRIPS-SCAN (07/12/2021 12:00 AM EQUIPMENT SERVICE TECHNICIAN) Narrative 07/12/2021 12:00 AM EQUIPMENT SERVICE TECHNICIAN Ordered by an unspecified provider. * ECG-SCAN (07/12/2021 12:00 AM EQUIPMENT SERVICE TECHNICIAN) Narrative 07/12/2021 12:00 AM EQUIPMENT SERVICE TECHNICIAN Ordered by an unspecified provider. * ECG-SCAN (07/12/2021 12:00 AM EQUIPMENT SERVICE TECHNICIAN) Narrative 07/12/2021 12:00 AM EQUIPMENT SERVICE TECHNICIAN Ordered by an unspecified provider. 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 Acute ischemic stroke (HCC) Unspecified cerebral artery occlusion w ith cerebral infarction Acute right hemiparesis (HCC) Hemiplegia, unspecified, affecting unsp ecified side Homonymous hemianopia, right ITA (acute kidney injury) (HCC) Acute kidney failure, unspecified Hypovolemia Encephalopathy Encephalopathy, unspecified Moderate malnutrition (HCC) Malnutrition of moderate degree Acute ischemic left [employer] stroke (HCC) Unspecified cerebral artery occlusion w ith cerebral infarction Coagulopathy (HCC) Other and unspecified coagulation defec ts Hypovolemic shock (HCC) Other shock without mention of trauma NSTEMI, initial episode of care (HCC) Acute myocardial infarction, subendocar dial infarction, initial episode of care * Advanced Care Planning/Resuscitation Status - Keanu Shepherd DO - 07/12/2021 10:40 PM EQUIPMENT SERVICE TECHNICIAN Advance Care Planning/Resuscitation Status Conversation Individuals present for advance care planning conversation: resident/fellow [place] child Pertinent details of conversation (including direct quotes from patient or surro gate): Discussed case with patient's . She expressed that Chemo would want everythi ng done to safe his life including chest compressions Outcome of conversation: Full Code Documents completed as a result of this conversation: None Other documents present, which outline patient/surrogate wishes: None Keanu Shepherd DO [id number] PMENT SERVICE TECHNICIAN documented in this encounter Admitting Diagnoses Diagnosis Colon obstruction (HCC) Unspecified intestinal obstruction documented in this encounter Administered Medications Action Date Dose Rate Site Medication Order MAR Action 07/12/2021 12:00 PM EQUIPMENT SERVICE TECHNICIAN 1,000 mg acetaminophen (TYLENOL EXTRA STRENGTH) Given tablet 1,000 mg 1,000 mg, Oral, ONCE, 1 dose, On Mon07/12/21 at 1130, TOTAL ACETAMINOPHEN DOSE NOT TO EXCEED 4GM DAILY, Pre-Op 07/15/2021 1:49 PM EQUIPMENT SERVICE TECHNICIAN 1,000 mg acetaminophen (TYLENOL EXTRA STRENGTH) Given tablet 1,000 mg 1,000 mg, Oral, EVERY 8 HOURS, 9 doses , First dose on Mon07/12/21 at 2000, Last dose on Mon07/15/21 at 1400, Total acetaminophen dose not to exceed 4 gm/day 1,000 mg Given 07/15/2021 6:38 AM EQUIPMENT SERVICE TECHNICIAN 1,000 mg Given 07/14/2021 9:00 PM EQUIPMENT SERVICE TECHNICIAN 1,000 mg Given 07/14/2021 2:06 PM EQUIPMENT SERVICE TECHNICIAN 1,000 mg Given 07/14/2021 5:47 AM EQUIPMENT SERVICE TECHNICIAN 1,000 mg Given 07/13/2021 9:23 PM EQUIPMENT SERVICE TECHNICIAN 1,000 mg Given 07/13/2021 1:59 PM EQUIPMENT SERVICE TECHNICIAN 07/13/2021 1:45 AM EQUIPMENT SERVICE TECHNICIAN 25 g 120 mL/hr albumin 25% injection 25 g Given - New 100 mL, 25 g, Intravenous, at 120 mL/hr, Bag ONCE, 1 dose, On Mon07/13/21 at 0230 07/20/2021 8:53 AM EQUIPMENT SERVICE TECHNICIAN 81 mg aspirin EC tablet 81 mg Given 81 mg, Oral, DAILY, First dose on Mon07/13/21 at 1845, Until Discontinued 81 mg Given 07/19/2021 8:07 AM EQUIPMENT SERVICE TECHNICIAN 81 mg Given 07/18/2021 8:25 AM EQUIPMENT SERVICE TECHNICIAN 81 mg Given 07/17/2021 9:12 AM EQUIPMENT SERVICE TECHNICIAN 81 mg Given 07/16/2021 8:00 AM EQUIPMENT SERVICE TECHNICIAN 81 mg Given 07/15/2021 8:19 AM EQUIPMENT SERVICE TECHNICIAN 81 mg Given 07/14/2021 8:49 AM EQUIPMENT SERVICE TECHNICIAN 81 mg Given 07/13/2021 6:12 PM EQUIPMENT SERVICE TECHNICIAN 07/20/2021 8:50 AM EQUIPMENT SERVICE TECHNICIAN 25 mg atenoloL (TENORMIN) tablet 25 mg Given 25 mg, Oral, EVERY MORNING, First dose on Mon07/13/21 at 0800, Until Discontinued, Hold for heart rate < 60 bpm or SBP <100 25 mg Given 07/19/2021 8:07 AM EQUIPMENT SERVICE TECHNICIAN 25 mg Given 07/18/2021 8:25 AM EQUIPMENT SERVICE TECHNICIAN 07/20/2021 8:50 AM EQUIPMENT SERVICE TECHNICIAN 40 mg atorvastatin (LIPITOR) tablet 40 mg Given 40 mg, Oral, DAILY, First dose on Mon07/13/21 at 2130, Until Discontinued 40 mg Given 07/19/2021 8:07 AM EQUIPMENT SERVICE TECHNICIAN 40 mg Given 07/18/2021 8:25 AM EQUIPMENT SERVICE TECHNICIAN 40 mg Given 07/17/2021 9:12 AM EQUIPMENT SERVICE TECHNICIAN 40 mg Given 07/16/2021 8:00 AM EQUIPMENT SERVICE TECHNICIAN 40 mg Given 07/15/2021 8:19 AM EQUIPMENT SERVICE TECHNICIAN 40 mg Given 07/14/2021 8:49 AM EQUIPMENT SERVICE TECHNICIAN 40 mg Given 07/13/2021 9:37 PM EQUIPMENT SERVICE TECHNICIAN 07/20/2021 8:52 AM EQUIPMENT SERVICE TECHNICIAN 1 drop brimonidine (ALPHAGAN) 0.2 % ophthalmic Given solution 1 drop 1 drop, Both Eyes, TWICE DAILY, First dose on Mon07/15/21 at 1100, Until Discontinued 1 drop Given 07/19/2021 9:28 PM EQUIPMENT SERVICE TECHNICIAN 1 drop Given 07/19/2021 8:08 AM EQUIPMENT SERVICE TECHNICIAN 1 drop Given 07/18/2021 8:43 PM EQUIPMENT SERVICE TECHNICIAN 1 drop Given 07/18/2021 8:31 AM EQUIPMENT SERVICE TECHNICIAN 1 drop Given 07/17/2021 9:18 PM EQUIPMENT SERVICE TECHNICIAN 1 drop Given 07/17/2021 9:13 AM EQUIPMENT SERVICE TECHNICIAN 1 drop Given 07/16/2021 8:22 PM EQUIPMENT SERVICE TECHNICIAN 1 drop Given 07/16/2021 8:00 AM EQUIPMENT SERVICE TECHNICIAN 1 drop Given 07/15/2021 9:10 PM EQUIPMENT SERVICE TECHNICIAN 1 drop Given 07/15/2021 11:10 AM EQUIPMENT SERVICE TECHNICIAN 07/20/2021 11:33 AM EQUIPMENT SERVICE TECHNICIAN 500 mg calcium carbonate (TUMS) chew tablet 500 Given mg 500 mg, Oral, EVERY 4 HOURS PRN, Starting on 07/17/21 at 2055, Until Mon07/20/21 at 1235, Indigestion/Heartburn, Each 500 mg tab delivers 200 mg elemental calcium 500 mg Given 07/19/2021 3:37 PM EQUIPMENT SERVICE TECHNICIAN 500 mg Given 07/18/2021 2:34 PM EQUIPMENT SERVICE TECHNICIAN 500 mg Given 07/18/2021 10:37 AM EQUIPMENT SERVICE TECHNICIAN 500 mg Given 07/18/2021 3:12 AM EQUIPMENT SERVICE TECHNICIAN 500 mg Given 07/17/2021 9:16 PM EQUIPMENT SERVICE TECHNICIAN 07/13/2021 12:09 PM EQUIPMENT SERVICE TECHNICIAN 2 g ceFAZolin (ANCEF) IVP 2 g Given 2 g, Intravenous, EVERY 8 HOURS, 3 doses, First dose on Mon07/12/21 at 2030, Last dose on Mon07/13/21 at 1230, IV PUSH -- RECONSTITUTE each 1 g vial b y adding 10 mLs of STERILE WATER (SW), fo r patients < 120 kg 2 g Given 07/13/2021 3:30 AM EQUIPMENT SERVICE TECHNICIAN 2 g Given 07/12/2021 9:55 PM EQUIPMENT SERVICE TECHNICIAN 07/12/2021 12:00 PM EQUIPMENT SERVICE TECHNICIAN 200 mg celecoxib (CeleBREX) capsule 200 mg Given 200 mg, Oral, ONCE, 1 dose, On Mon07/12/21 at 1130, Pre-Op 07/16/2021 10:31 PM EQUIPMENT SERVICE TECHNICIAN 50 mL/hr dextrose 5 % & 0.45% NaCl with KCl 20 Given - New mEq/L infusion Bag 1,000 mL, Intravenous, at 50 mL/hr, CONTINUOUS, Starting on Mon07/13/21 at 1415, Until Mon07/17/21 at 0938, May discontinue when PO intake is adequate. 50 mL/hr Given - New Bag 07/16/2021 2:43 AM EQUIPMENT SERVICE TECHNICIAN 50 mL/hr Given - New Bag 07/15/2021 6:36 AM EQUIPMENT SERVICE TECHNICIAN 50 mL/hr Given - New Bag 07/14/2021 2:09 PM EQUIPMENT SERVICE TECHNICIAN 50 mL/hr Infusion Restarted 07/14/2021 11:09 AM EQUIPMENT SERVICE TECHNICIAN 50 mL/hr Given - New Bag 07/13/2021 1:59 PM EQUIPMENT SERVICE TECHNICIAN 07/20/2021 8:53 AM EQUIPMENT SERVICE TECHNICIAN 1 drop dorzolamide (TRUSOPT) 2 % ophthalmic Given solution 1 drop 1 drop, Right Eye, TWICE DAILY, First dose on Mon07/15/21 at 1115, Until Discontinued, Give with timolol to equa l Cosopt. 1 drop Given 07/19/2021 9:29 PM EQUIPMENT SERVICE TECHNICIAN 1 drop Given 07/19/2021 8:08 AM EQUIPMENT SERVICE TECHNICIAN 1 drop Given 07/18/2021 8:45 PM EQUIPMENT SERVICE TECHNICIAN 1 drop Given 07/18/2021 8:31 AM EQUIPMENT SERVICE TECHNICIAN 1 drop Given 07/17/2021 9:18 PM EQUIPMENT SERVICE TECHNICIAN 1 drop Given 07/17/2021 9:13 AM EQUIPMENT SERVICE TECHNICIAN 1 drop Given 07/16/2021 8:22 PM EQUIPMENT SERVICE TECHNICIAN 1 drop Given 07/16/2021 8:00 AM EQUIPMENT SERVICE TECHNICIAN 1 drop Given 07/15/2021 9:10 PM EQUIPMENT SERVICE TECHNICIAN 1 drop Given 07/15/2021 11:16 AM EQUIPMENT SERVICE TECHNICIAN 07/20/2021 8:49 AM EQUIPMENT SERVICE TECHNICIAN 20 mg famotidine (PEPCID) tablet 20 mg Given 20 mg, Oral, DAILY, First dose on Mon07/12/21 at 1645, Until Discontinued 20 mg Given 07/19/2021 8:07 AM EQUIPMENT SERVICE TECHNICIAN 20 mg Given 07/18/2021 8:25 AM EQUIPMENT SERVICE TECHNICIAN 20 mg Given 07/17/2021 9:12 AM EQUIPMENT SERVICE TECHNICIAN 20 mg Given 07/16/2021 8:00 AM EQUIPMENT SERVICE TECHNICIAN 20 mg Given 07/15/2021 8:19 AM EQUIPMENT SERVICE TECHNICIAN 20 mg Given 07/14/2021 8:50 AM EQUIPMENT SERVICE TECHNICIAN 20 mg Given 07/13/2021 8:32 AM EQUIPMENT SERVICE TECHNICIAN 07/15/2021 8:19 AM EQUIPMENT SERVICE TECHNICIAN 300 mg gabapentin (NEURONTIN) capsule 300 mg Given 300 mg, Oral, THREE TIMES DAILY, 9 doses, First dose on Mon07/12/21 at 1645, Last dose on Mon07/15/21 at 0900 300 mg Given 07/14/2021 9:00 PM EQUIPMENT SERVICE TECHNICIAN 300 mg Given 07/14/2021 2:06 PM EQUIPMENT SERVICE TECHNICIAN 300 mg Given 07/14/2021 8:49 AM EQUIPMENT SERVICE TECHNICIAN 300 mg Given 07/13/2021 8:28 PM EQUIPMENT SERVICE TECHNICIAN 300 mg Given 07/13/2021 2:00 PM EQUIPMENT SERVICE TECHNICIAN 300 mg Given 07/13/2021 8:32 AM EQUIPMENT SERVICE TECHNICIAN 07/12/2021 12:01 PM EQUIPMENT SERVICE TECHNICIAN 600 mg gabapentin (NEURONTIN) capsule 600 mg Given 600 mg, Oral, ONCE, 1 dose, On Mon07/12/21 at 1130, Pre-Op 07/20/2021 6:07 AM EQUIPMENT SERVICE TECHNICIAN 5,000 Units Abdomina l Tissue heparin (porcine) PF syringe 5,000 Units Given 5,000 Units, Subcutaneous, EVERY 8 HOURS, First dose on Mon07/13/21 at 1745, Until Discontinued, NOTE: This is a HIGH ALERT Medication. 5,000 Units Abdomen:LLQ Given 07/19/2021 9:32 PM EQUIPMENT SERVICE TECHNICIAN 5,000 Units Arm, Right Given 07/19/2021 2:08 PM EQUIPMENT SERVICE TECHNICIAN 5,000 Units Abdominal Tissue Given 07/19/2021 6:30 AM EQUIPMENT SERVICE TECHNICIAN 5,000 Units Arm, Right Given 07/18/2021 8:48 PM EQUIPMENT SERVICE TECHNICIAN 5,000 Units Arm, Right Given 07/18/2021 2:34 PM EQUIPMENT SERVICE TECHNICIAN 5,000 Units Arm, Right Given 07/18/2021 6:53 AM EQUIPMENT SERVICE TECHNICIAN 5,000 Units Arm, Right Given 07/17/2021 9:16 PM EQUIPMENT SERVICE TECHNICIAN 5,000 Units Abdominal Tissue Given 07/17/2021 1:14 PM EQUIPMENT SERVICE TECHNICIAN 5,000 Units Abdomen:RLQ Given 07/17/2021 6:34 AM EQUIPMENT SERVICE TECHNICIAN 5,000 Units Arm, Left Given 07/16/2021 9:28 PM EQUIPMENT SERVICE TECHNICIAN 5,000 Units Abdominal Tissue Given 07/16/2021 1:59 PM EQUIPMENT SERVICE TECHNICIAN 5,000 Units Abdomen:RLQ Given 07/16/2021 6:22 AM EQUIPMENT SERVICE TECHNICIAN 5,000 Units Abdomen:RLQ Given 07/15/2021 9:10 PM EQUIPMENT SERVICE TECHNICIAN 5,000 Units Abdominal Tissue Given 07/15/2021 1:49 PM EQUIPMENT SERVICE TECHNICIAN 5,000 Units Abdominal Tissue Given 07/15/2021 6:38 AM EQUIPMENT SERVICE TECHNICIAN 5,000 Units Abdominal Tissue Given 07/14/2021 9:00 PM EQUIPMENT SERVICE TECHNICIAN 5,000 Units Abdomen:RLQ Given 07/14/2021 2:07 PM EQUIPMENT SERVICE TECHNICIAN 5,000 Units Arm, Left Given 07/14/2021 5:47 AM EQUIPMENT SERVICE TECHNICIAN 5,000 Units Abdominal Tissue Given 07/13/2021 9:26 PM EQUIPMENT SERVICE TECHNICIAN 5,000 Units Abdominal Tissue Given 07/13/2021 6:12 PM EQUIPMENT SERVICE TECHNICIAN 07/12/2021 3:09 PM EQUIPMENT SERVICE TECHNICIAN 0.5 mg HYDROmorphone injection (DILAUDID) 0.5 Given mg 0.5 mg, Intravenous, EVERY 10 MIN PRN, Starting on 07/12/21 at 1404, Until Mon07/12/21 at 1637, Pain Injectable, For Pain Score 4-6, For Pain Score 4-6 Maximum total dose of 2 mg Hold for RR < 10, PACU (only) 07/20/2021 8:53 AM EQUIPMENT SERVICE TECHNICIAN 1 drop ketorolac (ACULAR) 0.5 % ophthalmic Given solution 1 drop 1 drop, Right Eye, FOUR TIMES DAILY, First dose on Kim 07/15/21 at 1300, Unti l Discontinued 1 drop Given 07/19/2021 9:00 PM EQUIPMENT SERVICE TECHNICIAN 1 drop Given 07/19/2021 4:52 PM EQUIPMENT SERVICE TECHNICIAN 1 drop Given 07/19/2021 12:38 PM EQUIPMENT SERVICE TECHNICIAN 1 drop Given 07/19/2021 8:40 AM EQUIPMENT SERVICE TECHNICIAN 1 drop Given 07/18/2021 8:42 PM EQUIPMENT SERVICE TECHNICIAN 1 drop Given 07/18/2021 5:00 PM EQUIPMENT SERVICE TECHNICIAN 1 drop Given 07/18/2021 2:34 PM EQUIPMENT SERVICE TECHNICIAN 1 drop Given 07/18/2021 8:41 AM EQUIPMENT SERVICE TECHNICIAN 1 drop Given 07/17/2021 9:17 PM EQUIPMENT SERVICE TECHNICIAN 1 drop Given 07/17/2021 6:00 PM EQUIPMENT SERVICE TECHNICIAN 1 drop Given 07/17/2021 1:13 PM EQUIPMENT SERVICE TECHNICIAN 1 drop Given 07/17/2021 9:15 AM EQUIPMENT SERVICE TECHNICIAN 1 drop Given 07/16/2021 8:23 PM EQUIPMENT SERVICE TECHNICIAN 1 drop Given 07/16/2021 4:48 PM EQUIPMENT SERVICE TECHNICIAN 1 drop Given 07/16/2021 12:25 PM EQUIPMENT SERVICE TECHNICIAN 1 drop Given 07/16/2021 8:00 AM EQUIPMENT SERVICE TECHNICIAN 1 drop Given 07/15/2021 9:10 PM EQUIPMENT SERVICE TECHNICIAN 1 drop Given 07/15/2021 4:02 PM EQUIPMENT SERVICE TECHNICIAN 1 drop Given 07/15/2021 1:49 PM EQUIPMENT SERVICE TECHNICIAN 07/12/2021 10:06 PM EQUIPMENT SERVICE TECHNICIAN 100 mL/hr lactated ringers infusion Dose/Rate 1,000 mL, Intravenous, at 100 mL/hr, Change CONTINUOUS, Starting on Mon07/12/21 at 1430, Until Mon07/13/21 at 0258 500 mL/hr Given - New Bag 07/12/2021 8:50 PM EQUIPMENT SERVICE TECHNICIAN 100 mL/hr Given - New Bag 07/12/2021 2:37 PM EQUIPMENT SERVICE TECHNICIAN 07/12/2021 8:40 PM EQUIPMENT SERVICE TECHNICIAN 500 mL 3000 mL/hr lactated ringers infusion Given - New 1,000 mL, 500 mL, Intravenous, at 3,000 Bag mL/hr, BOLUS, 1 dose, On Mon07/12/21 at 2100 07/13/2021 8:36 AM EQUIPMENT SERVICE TECHNICIAN 1,000 mL 100 mL/hr lactated ringers infusion Given - New 1,000 mL, 1,000 mL, Intravenous, at 100 Bag mL/hr, CONTINUOUS, Starting on Mon07/13/21 at 0545, Until Mon07/14/21 at 1112 1,000 mL 100 mL/hr Given - New Bag 07/13/2021 5:51 AM EQUIPMENT SERVICE TECHNICIAN 07/13/2021 9:20 PM EQUIPMENT SERVICE TECHNICIAN 500 mL 999 mL/hr lactated ringers infusion Given - New 500 mL, 500 mL, Intravenous, at 999 Bag mL/hr, BOLUS, 1 dose, On Mon07/13/21 at 2115 07/19/2021 9:30 PM EQUIPMENT SERVICE TECHNICIAN 1 drop latanoprost (XALATAN) 0.005 % ophthalmic Given solution 1 drop 1 drop, Right Eye, AT BEDTIME DAILY, First dose on Mon07/15/21 at 2100, Unti l Discontinued, AFTER BREAKING TAMPER EVIDENT SEAL [CLEAR LID], THROW AWAY TH E CLEAR LID LEAVING THE COLORED LID. DO NOT PUT THE CLEAR LID BACK OVER THE COLORED LID. 1 drop Given 07/18/2021 8:44 PM EQUIPMENT SERVICE TECHNICIAN 1 drop Given 07/17/2021 9:20 PM EQUIPMENT SERVICE TECHNICIAN 1 drop Given 07/16/2021 8:23 PM EQUIPMENT SERVICE TECHNICIAN 1 drop Given 07/15/2021 9:10 PM EQUIPMENT SERVICE TECHNICIAN 07/20/2021 8:56 AM EQUIPMENT SERVICE TECHNICIAN 200 mg megestroL (MEGACE) oral suspension 200 Given mg 200 mg, Oral, DAILY, First dose on Mon07/19/21 at 0915, Until Discontinued, NOTE: This is a HIGH ALERT Medication. 200 mg Given 07/19/2021 10:08 AM EQUIPMENT SERVICE TECHNICIAN 07/12/2021 12:01 PM EQUIPMENT SERVICE TECHNICIAN 500 mg metroNIDAZOLE (FLAGYL) 500 mg IVPB 100 Given - New mL Bag 500 mg, Intravenous, 100 mL, Administer over 30 Minutes, ONCE, 1 dose, On Mon07/12/21 at 1130, Administer upon arriva l to Pre/Post., Pre-Op 07/13/2021 3:28 AM EQUIPMENT SERVICE TECHNICIAN 500 mg metroNIDAZOLE (FLAGYL) 500 mg IVPB 100 Given - New mL Bag 500 mg, 100 mL, Intravenous, Administer over 60 Minutes, EVERY 8 HOURS, 2 doses, First dose on Mon07/12/21 at 2000, Last dose on Mon07/13/21 at 0400 500 mg Given - New Bag 07/12/2021 10:00 PM EQUIPMENT SERVICE TECHNICIAN 07/18/2021 6:58 AM EQUIPMENT SERVICE TECHNICIAN 25 mg naloxegoL (MOVANTIK) tablet 25 mg Given 25 mg, Oral, DAILY, First dose on Mon07/13/21 at 0700, Until Discontinued, Give once daily until return of bowel flatus. 25 mg Given 07/16/2021 6:22 AM EQUIPMENT SERVICE TECHNICIAN 25 mg Given 07/15/2021 6:38 AM EQUIPMENT SERVICE TECHNICIAN 25 mg Given 07/14/2021 6:21 AM EQUIPMENT SERVICE TECHNICIAN 25 mg Given 07/13/2021 8:32 AM EQUIPMENT SERVICE TECHNICIAN 07/12/2021 8:49 PM EQUIPMENT SERVICE TECHNICIAN 0.4 mg nalOXone (NARCAN) injection 0.4 mg Given 0.4 mg, Intravenous, ONCE, 1 dose, On Mon07/12/21 at 2145, Dilute one ampule of naloxone 0.4 mg (1mL) with 9 mL NS for injection (for a total of 10 mL of dilution). PROTECT FROM LIGHT 07/19/2021 9:28 PM EQUIPMENT SERVICE TECHNICIAN 1 drop netarsudiL (RHOPRESSA) 0.02 % soln Given ++patient own supply++ 1 drop, Right Eye, AT BEDTIME DAILY, First dose on Mon07/16/21 at 2100, Unti l Discontinued, ++patient own supply++ 1 drop Given 07/18/2021 8:45 PM EQUIPMENT SERVICE TECHNICIAN 1 drop Given 07/17/2021 9:17 PM EQUIPMENT SERVICE TECHNICIAN 1 drop Given 07/16/2021 8:22 PM EQUIPMENT SERVICE TECHNICIAN 07/19/2021 9:32 PM EQUIPMENT SERVICE TECHNICIAN 8 mg ondansetron (ZOFRAN) injection 8 mg Given 8 mg, Intravenous, EVERY 6 HOURS PRN, Starting on Mon07/14/21 at 1111, Until Mon07/20/21 at 1235, Nausea/Vomiting Injectable 8 mg Given 07/19/2021 8:17 AM EQUIPMENT SERVICE TECHNICIAN 8 mg Given 07/18/2021 7:29 PM EQUIPMENT SERVICE TECHNICIAN 8 mg Given 07/17/2021 10:58 AM EQUIPMENT SERVICE TECHNICIAN 07/13/2021 8:00 AM EQUIPMENT SERVICE TECHNICIAN 2 Diluted mL perflutren lipid microspheres (DEFINITY) Given injection 1-20 Diluted mL 1-20 Diluted mL, Intravenous, ONCE PRN, 1 dose, Starting on Mon07/13/21 at 0640 , Until Mon07/13/21 at 0800, For Procedure, A cigarette maker may only administer Definity through a saline lock. If IV is in use or a port, PICC, or central line is being used a nurse must administer. NOTE: This is a HIGH ALERT Medication., MAC Procedure Area Only - Medications 07/12/2021 1:05 PM EQUIPMENT SERVICE TECHNICIAN sodium chloride 0.9 % infusion Given - New 250 mL, 250 mL, Intravenous, at 10 Bag mL/hr, CONTINUOUS, Starting on Mon07/12/21 at 1130, Until Mon07/12/21 at 2318, Hang bag in Preop 250 mL 10 mL/hr Given - New Bag 07/12/2021 12:02 PM EQUIPMENT SERVICE TECHNICIAN SODIUM CHLORIDE 0.9 % IV SOLP (Cabinet Override) NOW, 1 dose, On Mon07/12/21 at 1130, Created by cabinet override, Created by cabinet override 07/16/2021 7:59 AM EQUIPMENT SERVICE TECHNICIAN 15 mmol 63 mL/hr sodium phosphate 15 mmol in dextrose 5% Given - New (D5W) 250 mL IVPB Bag 15 mmol, Intravenous, 250 mL, Administe r over 4 Hours, ONCE, 1 dose, On Mon07/16/21 at 0730 07/20/2021 8:52 AM EQUIPMENT SERVICE TECHNICIAN 1 drop timoloL maleate (TIMOPTIC) 0.5 % Given ophthalmic drops 1 drop 1 drop, Right Eye, TWICE DAILY, First dose on Kim 07/15/21 at 1115, Until Discontinued, Give with dorzolamide to equal Cosopt 1 drop Given 07/19/2021 9:30 PM EQUIPMENT SERVICE TECHNICIAN 1 drop Given 07/19/2021 8:08 AM EQUIPMENT SERVICE TECHNICIAN 1 drop Given 07/18/2021 8:44 PM EQUIPMENT SERVICE TECHNICIAN 1 drop Given 07/18/2021 8:31 AM EQUIPMENT SERVICE TECHNICIAN 1 drop Given 07/17/2021 9:18 PM EQUIPMENT SERVICE TECHNICIAN 1 drop Given 07/17/2021 9:13 AM EQUIPMENT SERVICE TECHNICIAN 1 drop Given 07/16/2021 8:23 PM EQUIPMENT SERVICE TECHNICIAN 1 drop Given 07/16/2021 8:00 AM EQUIPMENT SERVICE TECHNICIAN 1 drop Given 07/15/2021 9:10 PM EQUIPMENT SERVICE TECHNICIAN 1 drop Given 07/15/2021 11:21 AM EQUIPMENT SERVICE TECHNICIAN 07/13/2021 3:28 AM EQUIPMENT SERVICE TECHNICIAN 20 mL WATER FOR INJECTION, STERILE IJ SOLN Given (Cabinet Override) NOW, 1 dose, On Mon07/13/21 at 0330, Created by cabinet override, Created by cabinet override documented in this encounter Discontinued Medications Start Date End Date Medication Sig Discontinue Reason 06/22/2021 07/13/2021 colestipoL (COLESTID) 1 Removed from gram tablet DIAMOND EXPERT Med List 07/13/2021 hydrocortisone acetate Insert or Removed from (ANUSOL-HC) 25 mg rectal Apply 25 mg DIAMOND EXPERT Med List suppository to rectal area as directed every 12 hours. 04/30/2021 07/13/2021 ondansetron (ZOFRAN ODT) Dissolve one Removed from 4 mg rapid dissolve tablet by DIAMOND EXPERT Med List tablet mouth every 6 hours as needed for Nausea or Vomiting. Place on tongue to dissolve. 04/30/2021 07/13/2021 oxyCODONE (ROXICODONE) 5 Take one Removed from mg tablet tablet by DIAMOND EXPERT Med List mouth every 6 hours as needed for Pain 11/13/2020 07/20/2021 acetaminophen (TYLENOL) Take one 500 mg tablet tablet by mouth every 6 hours as needed for Pain. Max of 4,000 mg of acetaminophe n in 24 hours. 07/21/2021 07/20/2021 atorvastatin (LIPITOR) 40 Take one mg tablet tablet by mouth daily. 07/20/2021 07/20/2021 acetaminophen (TYLENOL) Take three Reorder 325 mg tablet tablets by mouth every 8 hours as needed for Pain. 07/20/2021 07/20/2021 traMADoL (ULTRAM) 50 mg Take one Reorder tablet tablet by mouth every 8 hours as needed for Pain. documented as of this encounter Active and Recently Administered Medications Times are shown in EQUIPMENT SERVICE TECHNICIAN. 07/19/2021 07/20/2021 Medication Order 07/18/2021 0807 (Given - Provider: Zack Eugene RN ) 0853 (Given - Provider: Dena Cotton RN ) aspirin EC tablet 81 mg 0825 (Given - 81 mg, Oral, DAILY, First dose on Mon Provider: Avelina knight 07/13/21 at 1845, Until Discontinued ERNST Aguirre) 0807 (Given - Provider: Zack Eugene RN ) 0850 (Given - Provider: Dena Cotton RN ) atenoloL (TENORMIN) tablet 25 mg 0711 (Unheld by 25 mg, Oral, EVERY MORNING, First dose Provider - Pr ovider: on Mon07/13/21 at 0800, Until Mar William, Discontinued, Hold for heart rate < 60 MD)0825 (Give n - bpm or SBP <100 Provider: Humberto Aguirre RN) 0807 (Given - Provider: Zack Eugene RN ) 0850 (Given - Provider: Dena Cotton RN ) atorvastatin (LIPITOR) tablet 40 mg 0825 (Given - 40 mg, Oral, DAILY, First dose on Mon Provider: Avelina knight 07/13/21 at 2130, Until Discontinued ERNST Aguirre) 0808 (Given - Provider: Zack Eugene RN )2127 (Given - Provider: Ana Rosenberg RN) 0852 (Given - Provider: Dena Cotton RN ) brimonidine (ALPHAGAN) 0.2 % ophthalmic 0831 (Given - solution 1 drop Provider: Humberto 1 drop, Both Eyes, TWICE DAILY, First Carla RN)2042 (Given dose on Mon07/15/21 at 1100, Until - Provider: Francine Morales RN) 0808 (Given - Provider: Zack Eugene RN )2128 (Given - Provider: Ana Rosenberg RN) 0853 (Given - Provider: Dena Cotton RN ) dorzolamide (TRUSOPT) 2 % ophthalmic 0831 (Given - solution 1 drop(Linked Group 1) Provider: Humberto 1 drop, Right Eye, TWICE DAILY, First Carla RN)2044 (Given dose on Mon07/15/21 at 1115, Until - Provider: Randa rodgers Discontinued, Give with timolol to equal ERNST Morales) Cosopt. 0807 (Given - Provider: Zack Eugene RN ) 0849 (Given - Provider: Dena Cotton, RN ) famotidine (PEPCID) tablet 20 mg 0825 (Given - 20 mg, Oral, DAILY, First dose on Mon Provider: Avelina knight 07/12/21 at 1645, Until Discontinued ERNST Aguirre) 0630 (Given - Provider: Matt Cox , ERNST)1408 (Given - Provider: Victoria Gutierrez, RN)2132 (Given - Provider: Ana Rosenberg, RN) 0607 (Given - Provider: Saadia Mirza, ERNST) heparin (porcine) PF syringe 5,000 Units 0653 (Given - 5,000 Units, Subcutaneous, EVERY 8 Provider: Simon Covarrubias, First dose on Mon07/13/21 at ERNST [place])1434 (G iven 1745, Until Discontinued, NOTE: This is - Provider: Humberto gates HIGH ALERT Medication. ERNST Aguirre)204 (Given - Provider: Sierra Morales RN)214 (Planned Hold - Provider: Sierra Morales RN) 0840 (Given - Provider: Zack Eugene RN )1238 (Given - Provider: Zack Eugene RN)1652 (Given - Provider: Zack Eugene RN)2100 (Given - Provider: Ana Rosenberg, ERNST) 0853 (Given - Provider: Dena Cotton, RN ) ketorolac (ACULAR) 0.5 % ophthalmic 0841 (Given - solution 1 drop Provider: Humberto 1 drop, Right Eye, FOUR TIMES DAILY, ERNST Aguirre)1434 ( Given First dose on Mon07/15/21 at 1300, Until - Provider: Humberto Aguirre RN)1700 (Given - Provider: Humberto Aguirre RN)204 (Given - Provider: Sierra Morales RN) 2130 (Given - Provider: Ana Rosenberg, ERNST ) latanoprost (XALATAN) 0.005 % ophthalmic 204 (Given - solution 1 drop Provider: Sierra 1 drop, Right Eye, AT BEDTIME DAILY, ERNST Morales) First dose on Mon07/15/21 at 2100, Unti l Discontinued, AFTER BREAKING TAMPER EVIDENT SEAL [CLEAR LID], THROW AWAY TH E CLEAR LID LEAVING THE COLORED LID. DO NOT PUT THE CLEAR LID BACK OVER THE COLORED LID. 1008 (Given - Provider: Zack Eugene RN ) 0856 (Given - Provider: Dena Cotton, ERNST ) megestroL (MEGACE) oral suspension 200 mg 200 mg, Oral, DAILY, First dose on 07/19/21 at 0915, Until Discontinued, NOTE: This is a HIGH ALERT Medication. naloxegoL (MOVANTIK) tablet 25 mg 0658 (Given - (CANCELED) Provider: Simon St 25 mg, Oral, DAILY, First dose on Mon ERNST [place]) 07/13/21 at 0700, Until Discontinued, Give once daily until return of bowel flatus. 2127 (Given - Provider: Ana Rosenberg, ERNST ) netarsudiL (RHOPRESSA) 0.02 % soln 2044 (Given - ++patient own supply++ Provider: Sierra 1 drop, Right Eye, AT BEDTIME DAILY, ERNST Morales) First dose on Mon07/16/21 at 2100, Unti l Discontinued, ++patient own supply++ 0808 (Given - Provider: Zack Eugene RN )2129 (Given - Provider: Ana Rosenberg, ERNST) 0852 (Given - Provider: Dena Cotton, ERNST ) timoloL maleate (TIMOPTIC) 0.5 % 0831 (Given - ophthalmic drops 1 drop(Linked Group 1) Provider: Br wiliam 1 drop, Right Eye, TWICE DAILY, First ERNST Aguirre)2043 (Given dose on Kim 07/15/21 at 1115, Until - Provider: Randa e Discontinued, Give with dorzolamide to ERNST Morales) equal Cosopt 07/19/2021 07/20/2021 Medication Order 07/18/2021 1537 (Given - Provider: Aly Link RN) 1133 (Given - Provider: Dena Cotton, ERNST ) calcium carbonate (TUMS) chew tablet 500 0312 (Given - mg Provider: Simon St 500 mg, Oral, EVERY 4 HOURS PRNHerminio RN)1037 (Giv en Starting on 07/17/21 at 2055, Until - Provider: Sarmad matthews Mon07/20/21 at 1235, ERNST Aguirre)1434 (Given Indigestion/Heartburn, Each 500 mg tab - Provider: Sarmad matthews delivers 200 mg elemental calcium ERNST Aguirre) 1235 (Unheld by Provider - Provider: Jose, Orders Discontinue) cetirizine (ZyrTEC) tablet 5 mg 5 mg, Oral, DAILY PRN, Starting on Mon07/12/21 at 1638, Until Mon07/20/21 at 1235, Allergy symptoms 08 (Given - Provider: Zack Eugene RN )2131 (Given - Provider: Ana Rosenberg RN) ondansetron (ZOFRAN) injection 8 mg 1928 (Given - 8 mg, Intravenous, EVERY 6 HOURS PRN, Provider: Manjinder mora Starting on Mon07/14/21 at 1111, Until Andrew, RN) Mon07/20/21 at 1235, Nausea/Vomiting Injectable 1235 (Unheld by Provider - Provider: Jose, Orders Discontinue) traMADoL (ULTRAM) tablet 50 mg 50 mg, Oral, EVERY 6 HOURS PRN, Starting on Mon07/12/21 at 1638, Until Mon07/20/21 at 1235, Pain PO Order Group 1: dorzolamide (TRUSOPT) 2 % ophthalmic so lution 1 dropJump to med 1 drop, Right Eye, TWICE DAILY, First d ose on Mon07/15/21 at 1115, Until Discontinued
Give with timolol to equal Cosopt.
And timoloL maleate (TIMOPTIC) 0.5 % ophtha lmic drops 1 dropJump to med 1 drop, Right Eye, TWICE DAILY, First d ose on Mon07/15/21 at 1115, Until Discontinued
Give with dorzolamide to equal Cosopt
documented in this encounter Orders First Ordered Date Medications Ordered That Might Not Have Count Last Ordered Date Been Administered HELP MEDICATION 2 07/15/2021 ceFAZolin 2 g IVPB 110 mL 1 07/12/2021 cetirizine (ZyrTEC) tablet 5 mg 1 2021 fentaNYL citrate PF (SUBLIMAZE) 1 2021 injection 25-50 mcg ondansetron (ZOFRAN) injection 4 mg 1 phenoL (CHLORASEPTIC) spray 2 spray 1 SODIUM CHLORIDE 0.9 % IV SOLP (Cabinet 1 07/12/2021 Override) traMADoL (ULTRAM) tablet 50 mg 1 022 First Ordered Date Lab Orders Without Results Count Last Ordere d Date 07/12/2021 PREPARE RBC'S 2 07/14/2021 First Ordered Date Diet Count Last Ordered Date DISCHARGE DIET REGULAR 1 07/20/2021 First Ordered Date Nursing Count Last Ordered Date DISCHARGE ACTIVITY DRIVING 1 07/20/2021 DISCHARGE ACTIVITY LIFTING 1 07/20/2021 DISCHARGE ACTIVITY NORMAL 1 07/20/2021 DISCHARGE ACTIVITY SEXUAL 1 07/20/2021 DISCHARGE CONTACT 1 07/20/2021 DISCHARGE SIGNS/SYMPTOMS 1 07/20/2021 DISCHARGE WOUND CARE 1 07/20/2021 LINE/DRAIN COMMUNICATION 1 07/15/2021 NPO PRIOR TO PROCEDURE 1 07/15/2021 07/12/2021 VITAL SIGNS FOR TRANSFUSION 4 07/14/2021 First Ordered Date Consult Count Last Ordered Date CONSULT ADULT PALLIATIVE CARE PROVIDER 1 07/16/2021 CONSULT REHABILITATION MEDICINE 1 2021 PHYSICIAN CONSULT CARDIOLOGY PHYSICIAN 1 CONSULT DIETITIAN 1 07/12/2021 CONSULT WOUND/OSTOMY TEAM NURSE 1 2021 First Ordered Date OT Count Last Ordered Date OT CONSULT OCCUPATIONAL THERAPY 1 2021 First Ordered Date PT Count Last Ordered Date PT CONSULT PHYSICAL THERAPY 1 07/12/2021 First Ordered Date Admission Count Last Ordered Date ADMIT TO INPATIENT 1 07/12/2021 CLARIFICATION ORDER - FOR ADT ADMIN USE 1 07/09/2021 ONLY First Ordered Date Transfer Count Last Ordered Date 07/12/2021 TRANSFER PATIENT (BED REQUEST) 2 022 First Ordered Date Discharge Count Last Ordered Date DISCHARGE PATIENT NOW 1 07/20/2021 First Ordered Date Equipment Count Last Ordered Date COMPRESSION DEVICE, LEG 1 07/14/2021 PUMP IV CONTROL UNIT W/MODULES 1 022 First Ordered Date Vital Signs Count Last Ordered Date VITAL SIGNS 1 07/12/2021 First Ordered Date Activity Count Last Ordered Date MOBILITY 1 07/12/2021 First Ordered Date Order Set Communication Count Last Ordered D ate PATIENT HAS: 1 07/15/2021 VTE DRUG PROPHYLAXIS CONTRAINDICATED 1 0 07/12/2021 First Ordered Date Appointment Request Count Last Ordered Date [facility]MENT RE[facility] 07/20/2021 ([facility]) First Ordered Date Intake & Output Count Last Ordered Date INTAKE AND OUTPUT 1 07/12/[address] & Maintain Count Last Ordered Date PLACE AND MAINTAIN SCD 1 07/12/2021 First Ordered Date ADT Patient Update Count Last Ordered Date 07/12/2021 CHANGE SERVICE / LEVEL OF CARE (NO BED 2 07/15/2021 REQUEST) documented in this encounter Additional Health Concerns Noted Time Assessment 07/20/2021 8:48 AM EQUIPMENT SERVICE TECHNICIAN A fall risk assessment has been complet ed for the patient documented as of this encounter Care Teams Start Date End Date Belt Knife Feeder Relationship Specialty 05/17/20 Angelo Gordon MD PCP - General Internal [address] [facility] [address] [place] [id number] 05/17/20 Bartolo Cornejo MD Internal [address] [facility] [address] [place] [id number] documented as of this encounter
--- OUTSIDE RECORDS SUMMARY | 2021-07-20 15:42 | XMS REPORT | Encounter Summary ---
Author Author [facility] Organization [facility] Address Unknown Phone Unavailable Care Team Providers Care Probation And Patrol Agent Name Role Phone Angelo Gordon MD PCP Bartolo Cornejo MD Unavailable Encounter Details Care Team Description Date Type Department 07/12/2021 Travel Social History Date Tobacco Use Types Packs/Day Years Used Never Smoker Smokeless Tobacco: Never Used Comments Alcohol Use Standard Drinks/Week Not Currently 0 (1 standard drink = 0.6 o z pure alcohol) Sex Assigned at Date Recorded Male 05/18/2020 12:22 PM PARBOILER Date Recorded COVID-19 Exposure Response 07/12/2021 11:38 AM PARBOILER In the last month, have you been in contact with No / Unsure someone who was confirmed or suspected to have Coronavirus / COVID-19? documented as of this encounter Functional Status Date of Assessment Functional Status Response 04/30/2021 Does the patient have a hearing impairment: [...] impairment: No documented as of this encounter Plan of Treatment Not on filedocumented as of this encounter Goals Goal Patient Associated Recent Progress Patient-Stat Aut hor Goal Type Problems ed? Resume normal activities Hospital Yes Aracelis Schaeffer, RN Note: To become as active as I can and get use to this thing on my side and return to normal activity. Recover from illness Hospital On track (07/12/2021 Yes April Marie, 6:07 PM PARBOILER) RN Note: "To heal and recover, and get stronger, be as healthy as I can" documented as of this encounter Visit Diagnoses Not on filedocumented in this encounter Additional Health Concerns Noted Time Assessment 07/12/2021 10:42 PM PARBOILER A fall risk assessment has been complet ed for the patient documented as of this encounter Care Teams Start Date End Date Probation And Patrol Agent Relationship Specialty 05/17/20 Angelo Gordon MD PCP - General Internal [address] [facility] [address] [place] [id number] 05/17/20 Bartolo Cornejo MD Internal [address] [facility] [address] [place] [address] documented as of this encounter
--- OUTSIDE RECORDS SUMMARY | 2021-07-20 15:42 | XMS REPORT | Encounter Summary ---
Author Author [facility] Organization [facility] Address Unknown Phone Unavailable Care Team Providers Care Business Specialist Name Role Phone Angelo Gordon MD PCP Bartolo Cornejo MD Unavailable Encounter Details Care Team Description Date Type Department 07/12/2021 Hospital Imaging: Main Camp[place], Encounter [facility] [address] 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 Vit A,C,D-Qfen-Zwwlmm Take 2 0 (PRESERVISION AREDS) capsules by [id number] mouth daily. [id number] cap 07/20/2021 07/20/2021 acetaminophen (TYLENOL) Take three 40 tablet 0 325 mg tablet tablets by mouth every 8 hours as needed for Pain. 11/13/2020 07/20/2021 acetaminophen (TYLENOL) Take one 20 tablet 0 500 mg tablet tablet by mouth every 6 hours as needed for Pain. Max of 4,000 mg of acetaminophen in 24 hours. 07/21/2021 07/20/2021 atorvastatin (LIPITOR) 40 Take one 90 tablet 3 mg tablet tablet by mouth daily. 06/22/2021 07/13/2021 colestipoL (COLESTID) 1 0 gram tablet 07/13/2021 hydrocortisone acetate Insert or 0 (ANUSOL-HC) 25 mg rectal Apply 25 mg suppository to rectal area as directed every 12 hours. 04/30/2021 07/13/2021 ondansetron (ZOFRAN ODT) Dissolve one 30 tablet 1 4 mg rapid dissolve tablet by tablet mouth every 6 hours as needed for Nausea or Vomiting. Place on tongue to dissolve. 04/30/2021 07/13/2021 oxyCODONE (ROXICODONE) 5 Take one 15 tablet 0 mg tablet tablet by mouth every 6 hours as needed for Pain 07/20/2021 07/20/2021 traMADoL (ULTRAM) 50 mg Take one 20 tablet 0 tablet tablet by mouth every 8 hours as needed for Pain. documented as of this encounter Discharge Disposition Code Departure Means Destination Disposition Home Home or Self Care documented in this encounter Plan of Treatment Date/Time Name Type Priority Associated Diag noses 07/12/2021 2:05 PM FULL STACK WEB DEVELOPER POC ANES US GUIDED NERVE Imaging Routine [...] track (07/12/2021 Yes April Marie, 6:07 PM FULL STACK WEB DEVELOPER) RN Note: "To heal and recover, and get stronger, be as healthy as I can" documented as of this encounter Visit Diagnoses Not on filedocumented in this encounter Additional Health Concerns Noted Time Assessment 07/12/2021 10:42 PM FULL STACK WEB DEVELOPER A fall risk assessment has been complet ed for the patient documented as of this encounter Care Teams Start Date End Date Business Specialist Relationship Specialty 05/17/20 Angelo Gordon MD PCP - General Internal [address] [facility] [address] [place] [id number] 05/17/20 Bartolo Cornejo MD Internal [address] [facility] [address] [place] [address] documented as of this encounter
--- OUTSIDE RECORDS SUMMARY | 2021-07-20 15:42 | XMS REPORT | Encounter Summary ---
Author Author [facility] Organization [facility] Address Unknown Phone Unavailable Care Team Providers Care Detailer Pharmaceuticals Name Role Phone Angelo Gordon MD PCP Bartolo Cornejo MD Unavailable Encounter Details Care Team Description Date Type Department 07/12/2021 Hospital Imaging: Main [facility], Encounter [facility] [address] [facility]. 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 Vit A,C,A-Sfvx-Akwewb Take 2 0 (PRESERVISION AREDS) capsules by 14,320-226-200 mouth daily. [id number] cap 07/20/2021 07/20/2021 acetaminophen (TYLENOL) Take three [...] Priority Associated Diag noses 07/12/2021 2:03 PM FRONT DESK ASSISTANT POC ANES US GUIDED NERVE Imaging Routine [...] track (07/12/2021 Yes April Marie, 6:07 PM FRONT DESK ASSISTANT) RN Note: "To heal and recover, and get stronger, be as healthy as I can" documented as of this encounter Visit Diagnoses Not on filedocumented in this encounter Additional Health Concerns Noted Time Assessment 07/12/2021 10:42 PM FRONT DESK ASSISTANT A fall risk assessment has been complet ed for the patient documented as of this encounter Care Teams Start Date End Date Detailer Pharmaceuticals Relationship Specialty 05/17/20 Angelo Gordon MD PCP - General Internal [address] [facility] [address] [place] [id number] 05/17/20 Bartolo Cornejo MD Internal [address] [facility] [address] [place] [address] documented as of this encounter
--- OUTSIDE RECORDS SUMMARY | 2021-07-20 15:43 | XMS REPORT | Encounter Summary ---
Author Author [facility] Organization [facility] Address Unknown Phone Unavailable Care Team Providers Care Conservation Technician Name Role Phone Angelo Gordon MD PCP Bartolo Cornejo MD Unavailable Encounter Details Care Team Description Date Type Department Maurice Cao DO [address] [place], [place] Malignant neoplasm of urinary bladder, u nspecified site (HCC) (Primary Dx); COVID-19 vaccine series completed 07/09/2021 Prep for Case Oncology: [facility] [address] [place] [address]. [place], [place] [phone] Social History Date Tobacco Use Types Packs/Day Years Used Never Smoker Smokeless Tobacco: Never Used Comments Alcohol Use Standard Drinks/Week Not Currently 0 (1 standard drink = 0.6 o z pure alcohol) Sex Assigned at Date Recorded Male 05/18/2020 12:22 PM ACCOUNT INFORMATION CLERK Date Recorded COVID-19 Exposure Response 07/12/2021 11:38 AM ACCOUNT INFORMATION CLERK In the last month, have you [...] track (07/12/2021 Yes April Marie, 6:07 PM ACCOUNT INFORMATION CLERK) RN Note: "To heal and recover, and get stronger, be as healthy as I can" documented as of this encounter Visit Diagnoses Diagnosis Malignant neoplasm of urinary bladder, unspecified site (HCC) - Primary COVID-19 vaccine series completed documented in this encounter Orders First Ordered Date Nursing Count Last Ordered Date COVID-19 TESTING NOT REQUIRED 1 07/09/19 22 First Ordered Date Case Request Count Last Ordered Date CASE REQUEST 1 07/09/2021 documented in this encounter Additional Health Concerns Noted Time Assessment 07/09/2021 9:37 AM ACCOUNT INFORMATION CLERK A fall risk assessment has been complet ed for the patient documented as of this encounter Care Teams Start Date End Date Conservation Technician Relationship Specialty 05/17/20 Angelo Gordon MD PCP - General Internal [address]23 [facility] [address] [place] [id number] 05/17/20 Bartolo Cornejo MD Internal [address] [facility] [address] [place] [address] documented as of this encounter
--- OUTSIDE RECORDS SUMMARY | 2021-07-20 15:43 | XMS REPORT | Encounter Summary ---
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 documented as of this encounter Visit Diagnoses Not on filedocumented in this encounter Additional Health Concerns Noted Time Assessment 07/09/2021 9:37 AM PACKING TRACTOR MACHINE OPERATOR A fall risk assessment has been complet ed for the patient documented as of this encounter Care Teams Start Date End Date Package Winder Relationship Specialty 05/17/20 Angelo Gordon MD PCP - General Internal 2023 [facility] [address] [place] [id number] 05/17/20 Bartolo Cornejo MD Internal [address] [facility] [address] [place] [address] documented as of this encounter
--- OUTSIDE RECORDS SUMMARY | 2021-07-20 15:43 | XMS REPORT | Encounter Summary ---
Author Author [facility] Organization [facility] Address Unknown Phone Unavailable Care Team Providers Care Spray Rig Operator Name Role Phone Angelo Gordon MD PCP Bartolo Cornejo MD Unavailable Encounter Details Care Team Description Date Type Department Cody Louie MD [address] [place] [address] 07/07/2021 Orders Only Oncology: [facility] [address] [facility]. [place], [place] [phone] Social History Date Tobacco Use Types Packs/Day Years Used Never Smoker Smokeless Tobacco: Never Used Comments Alcohol Use Standard Drinks/Week Not Currently 0 (1 standard drink = 0.6 o z pure alcohol) Sex Assigned at Date Recorded Male 05/18/2020 12:22 PM HAT BLOCKING OPERATOR Date Recorded COVID-19 Exposure Response 07/09/2021 9:00 AM HAT BLOCKING OPERATOR In the last month, have you [...] track (07/12/2021 Yes April Marie, 6:07 PM HAT BLOCKING OPERATOR) RN Note: "To heal and recover, and get stronger, be as healthy as I can" documented as of this encounter Visit Diagnoses Not on filedocumented in this encounter Additional Health Concerns Noted Time Assessment 06/25/2021 8:18 AM HAT BLOCKING OPERATOR A fall risk assessment has been complet ed for the patient documented as of this encounter Care Teams Start Date End Date Spray Rig Operator Relationship Specialty 05/17/20 Angelo Gordon MD PCP - General Internal [address] [facility] [address] [place] [id number] 05/17/20 Bartolo Cornejo MD Internal [address] [facility] [address] [place] [address] documented as of this encounter
--- OUTSIDE RECORDS SUMMARY | 2021-07-20 15:43 | XMS REPORT | Encounter Summary ---
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 [place] [address] Referral ID Status Reason Start Date Expiration Visits Vi sits Date Requested Authorized [id number] Authorized 06/25/2021 06/18/2022 99 99 Encounter Details Care Team Description Date Type Department Cody Louie MD [address] [place] [address] 07/09/2021 Hospital Oncology: [facility] [address] [place] [address]. [address] [place] [phone] Social History Date Tobacco Use Types Packs/Day Years Used Never Smoker Smokeless Tobacco: Never Used Comments Alcohol Use Standard Drinks/Week Not Currently 0 (1 standard drink = 0.6 o z pure alcohol) Sex Assigned at Date Recorded Male 05/18/2020 12:22 PM WELL PULLER Date Recorded COVID-19 Exposure Response 07/12/2021 11:38 AM WELL PULLER In the last month, have you been [...] 06/08/2020 Miscellaneous Medical Urostomy 20 each Supply [facility] supplies and accessories Dispense one month of [...] 8 hours as needed for Pain. Vit A,C,B-Pnzo-Tosfzl Take 2 0 (PRESERVISION AREDS) capsules by 14,320-226-200 mouth daily. [id number] cap 07/20/2021 07/20/2021 acetaminophen (TYLENOL) Take three [...] or Self Care documented in this encounter Progress Notes * Sharonda Lincoln, ERNST - 07/09/2021 2:47 PM WELL PULLER Pt had follow up appointment with Dr. Tripathi prior to treatment. Pt has no yulissa rns at this time. PIV flushed and positive blood return noted. Pt received IVF a s ordered without incident. PIV removed and pt discharged from treatment ambulat ory. 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) - Primary Malignant neoplasm of lateral wall of u rinary bladder * Addendum Note - Johanna Almanzar - 07/09/2021 12:15 PM WELL PULLER Encounter addended by: Johanna Almanzar on: 07/13/2021 11:36 AM Actions taken: Charge Capture section accepted PULLER documented in this encounter Administered Medications Action Date Dose Rate Site Medication Order MAR Action 07/09/2021 12:42 PM WELL PULLER 1,000 mL 500 mL/hr sodium chloride 0.9 % infusion Given - New 1,000 mL, 1,000 mL, Intravenous, at 500 Bag mL/hr, ONCE, 1 dose, On Mon07/09/21 at 1245 documented in this encounter Orders First Ordered Date Medications Ordered That Might Not Have Count Last Ordered Date Been Administered sodium chloride 0.9 % infusion 1 07/09 First Ordered Date Nursing Count Last Ordered Date [facility] PATIENT CARE 1 0 07/09/2021 PROTOCOLS documented in this encounter Additional Health Concerns Noted Time Assessment 07/09/2021 9:37 AM WELL PULLER A fall risk assessment has been complet ed for the patient documented as of this encounter Care Teams Start Date End Date Clam Bed Worker Relationship Specialty 05/17/20 Angelo Gordon MD PCP - General Internal 2023 [facility] [address] [place] [id number] 05/17/20 Bartolo Cornejo MD Internal [address] [facility] [address] [place] [address] documented as of this encounter
--- OUTSIDE RECORDS SUMMARY | 2021-07-20 15:43 | XMS REPORT | Encounter Summary ---
Author Author [facility] Organization [facility] Address Unknown Phone Unavailable Care Team Providers Care Welding Inspector Name Role Phone Angelo Gordon MD PCP Bartolo Cornejo MD Unavailable Encounter Details Care Team Description Date Type Department Cody Louie MD [address] [place] [address] 06/25/2021 Orders Only Oncology: [facility] [place] [address] [place] [address]. [place], [place] [phone] Social History Date Tobacco Use Types Packs/Day Years Used Never Smoker Smokeless Tobacco: Never Used Comments Alcohol Use Standard Drinks/Week Not Currently 0 (1 standard drink = 0.6 o z pure alcohol) Sex Assigned at Date Recorded Male 05/18/2020 12:22 PM SHAKE SAWYER documented as of this encounter Functional Status [...] Concerns Noted Time Assessment 06/25/2021 8:18 AM SHAKE SAWYER A fall risk assessment has been complet ed for the patient documented as of this encounter Care Teams Start Date End Date Welding Inspector Relationship Specialty 05/17/20 Angelo Gordon MD PCP - General Internal [address]23 [facility] Medicine [facility] [address] [place] [id number] 05/17/20 Bartolo Cornejo MD Internal [address] [facility] [address] [place] [address] documented as of this encounter
--- OUTSIDE RECORDS SUMMARY | 2021-07-20 15:43 | XMS REPORT | Encounter Summary ---
Author Author [facility] Organization [facility] Address Unknown Phone Unavailable Care Team Providers Care Marriage And Family Counselor Name Role Phone Angelo Gordon MD PCP Bartolo Cornejo MD Unavailable Reason for Visit * Reason Onset Date Comments Appointment Request 06/25/2021 Encounter Details Care Team Description Date Type Department Cody Louie MD [address] [place] [address] Appointment Request 06/25/2021 Telephone Oncology: [facility] [place] [address] [facility]. [place], [place] [phone] Social History Date Tobacco Use Types Packs/Day Years Used Never Smoker Smokeless Tobacco: Never Used Comments Alcohol Use Standard Drinks/Week Not Currently 0 (1 standard drink = 0.6 o z pure alcohol) Sex Assigned at Date Recorded Male 05/18/2020 12:22 PM PORCELAIN FINISHER documented as of this encounter Functional Status [...] impairment: No documented as of this encounter Miscellaneous Notes * Telephone Encounter - Mickey Perez - 06/25/2021 11:43 AM PORCELAIN FINISHER Called Pt, left message to check [employer] and sent message via [employer] ELAIN FINISHER documented in this encounter Plan of Treatment [...] Concerns Noted Time Assessment 06/25/2021 8:18 AM PORCELAIN FINISHER A fall risk assessment has been complet ed for the patient documented as of this encounter Care Teams Start Date End Date Marriage And Family Counselor Relationship Specialty 05/17/20 Angelo Gordon MD PCP - General Internal 2023 [facility] [address] [place] [id number] 05/17/20 Bartolo Cornejo MD Internal [address] [facility] [address] [place] [address] documented as of this encounter
--- OUTSIDE RECORDS SUMMARY | 2021-07-20 15:43 | XMS REPORT | Encounter Summary ---
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, [facility] [address] [place] [address]. [place] [address] Social History Date Tobacco Use Types Packs/Day Years Used Never Smoker Smokeless Tobacco: Never Used Comments Alcohol Use Standard Drinks/Week Not Currently 0 (1 standard drink = 0.6 o z pure alcohol) Sex Assigned at Date Recorded Male 05/18/2020 12:22 PM APPLICATION PROGRAMMER ANALYST Date Recorded COVID-19 Exposure Response 07/09/2021 9:00 AM APPLICATION PROGRAMMER ANALYST In the last month, have you been [...] impairment: No documented as of this encounter Progress Notes * Cody Louie MD - 06/25/2021 9:00 AM APPLICATION PROGRAMMER ANALYST Name: Chemo Jenkins : 1950 AGE: 71 y.o. DATE OF SERVICE: 06/25/2021 Subjective: Reason for Visit: New Patient Chemo Jenkins is a 71 y.o. male. Cancer Staging No matching staging information was found for the patient. History of Present Illness 70 y/o male with history of kidney stones was found to have microscopic hematuri a. Cystoscopy was completed mid Mar 2020 revealed a 2 cm bladder tumor right la teral wall. CT scan of abd and pelvis was completed Mar 2020 and right sided bl adder wall thickening was noted. 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 He denies a smoking history, but states he was exposed to second hand smoke quite frequentl y. - 04/08/2020 CT UROGRAM - Continued nonobstructive bilateral renal calculi. S uspected hepatic and right renal cyst. There is right sided bladder wall thicke anastacio and a neoplasm cannot be excluded with follow up discussed above. No evide nce of bladder stone or ureterovesicular junction abnormality. - 04/21/2020 PATHOLOGY - Transurethral resection, bladder tumor: High grade pa pillary urothelial carcinoma with glandular differentiation, with invasion into subepithelial connective tissue and smooth muscle. - 05/04/2020 [facility] READ ON OUTSIDE PATH SLIDES: Final Diagnosis: A. Outside walter e "[id number]" (date collected 04/21/2020). 1. Transurethral resection, araseli r tumor (Slide L2): Papillary urothelial carcinoma, high-grade, with micropapil eulogio features, invasive into muscularis propria. No definitive lymphovascular in vasion identified. 06/04/20- radical cystectomy/prostatectomy with ileal conduit. Staged [id number]. P athology: A. Bladder and prostate, cystoprostatectomy: Residual high-grade [...] for malignancy in 9 lymph nodes (0/9) 04/03/21- CT A/P WO, IMPRESSION: 1. Severe rectal wall thickening with severe proctitis likely. This should be fo llowed up. No definite abscess or free air. No small bowel obstruction. 2. Advanced constipation 3. Possible right lower quadrant urostomy with a large parastomal bowel hernia. 4. Left greater than right nephrolithiasis. 04/30/21- CT A/P WO, IMPRESSION: 1. Development of moderate to severe proctitis and mild dilation of the more pro ximal large bowel. 2. Interval left percutaneous nephrolithotomy and percutaneous nephrostomy tube. A couple tiny residual calculi persist. 3. Removal of the right nephroureteral stent and slight increase in mild hydrone phrosis. 4. Development of a small parastomal hernia. 05/21/21- Colonoscopy, pathology: Glandular mucosa with atypical cellular proliferation of lamina propria. Addendum: Metastatic carcinoma ROXANA-3 immunopositivity suggests urothelial carcinoma. Interval History: Patient presents today to establish care for his recently diagnosed metastatic b ladder cancer. He has been having loose, frequent stools. Denies any abdominal p ain, nausea, fever, chills, difficulty urinating, hematuria. Review of Systems Constitutional: Negative for diaphoresis, fatigue, fever and unexpected weight c hange. HENT: Negative for congestion, mouth sores, postnasal drip, rhinorrhea and sore throat. Eyes: Negative for photophobia and visual disturbance. Respiratory: Negative for apnea, cough, choking, chest tightness, shortness of b reath, wheezing and stridor. Cardiovascular: Negative for chest pain, palpitations and leg swelling. Gastrointestinal: Positive for diarrhea. Negative for abdominal distention, abdo malcolm pain, constipation, nausea and vomiting. Genitourinary: Negative for hematuria and urgency. Musculoskeletal: Negative for back pain, gait problem and joint swelling. Skin: Negative for pallor and rash. Neurological: Negative for tremors, weakness and numbness. Hematological: Negative for adenopathy. Does not bruise/bleed easily. Psychiatric/Behavioral: Negative for agitation. The patient is not nervous/anxio us. Objective: acetaminophen (TYLENOL) 500 mg tablet Take [...] 5 mg by mouth daily as needed. dorzolamide-timoloL (COSOPT) 2-0.5 % ophthalmic solution INSTILL 1 DROP INTO RIGHT EYE TWICE DAILY famotidine (PEPCID) 20 mg tablet Take 20 mg by mouth twice daily as needed. fish oil /omega-3 fatty acids (SEA-OMEGA) 340/1000 mg capsule Take 1 capsule by mouth daily. latanoprost (XALATAN) 0.005 % ophthalmic solution INSTILL 1 DROP INTO RIGHT EYE AT BEDTIME [facility] Urostomy supplies and accessories Dispense one month of supplies Dx Bladder Cancer C67.9 ondansetron (ZOFRAN ODT) 4 mg rapid dissolve tablet Dissolve one tablet by m outh every 6 hours as needed for Nausea or Vomiting. Place on tongue to dissolve . oxyCODONE (ROXICODONE) 5 mg tablet Take one tablet by mouth every 6 hours as needed for Pain polyethylene glycol 3350 (MIRALAX) 17 g packet Take one packet by mouth ky y as needed. RHOPRESSA 0.02 % drop INSTILL 1 INTO RIGHT EYE AT BEDTIME senna/docusate (SENOKOT-S) 8.6/50 mg tablet Take one tablet by mouth daily a s needed. Vit A,C,I-Fdit-Momljo (PRESERVISION AREDS) 14,320-226-200 xqkm-sw-cwvf cap Take 2 capsules by mouth daily. Vitals: 06/25/21 0818 PainSc: Zero There is no height or weight on file to calculate BMI. Pain Addressed: N/A Patient Evaluated for a Clinical Trial: No treatment clinical trial available fo r this patient. Eastern Cooperative Oncology Group performance status is 1, Restricted in physic ally strenuous activity but ambulatory and able to carry out work of a light or sedentary nature, e.g., light house work, office work. Physical Exam Constitutional: General: He is not in acute distress. Appearance: Normal appearance. He is normal weight. He is not ill-appearing, toxic-appearing or diaphoretic. HENT: Head: Normocephalic. Eyes: General: No scleral icterus. Right eye: No discharge. Left eye: No discharge. Conjunctiva/sclera: Conjunctivae normal. Cardiovascular: Rate and Rhythm: Normal rate and regular rhythm. Pulses: Normal pulses. Heart sounds: Normal heart sounds. No murmur heard. No friction rub. No gallop. Pulmonary: Effort: Pulmonary effort is normal. No respiratory distress. Breath sounds: Normal breath sounds. No stridor. No wheezing, rhonchi or rale s. Chest: Chest wall: No tenderness. Abdominal: General: Abdomen is flat. There is no distension. Palpations: There is no mass. Tenderness: There is no abdominal tenderness. Skin: General: Skin is warm. Neurological: General: No focal deficit present. Mental Status: He is alert. Psychiatric: Mood and Affect: Mood normal. Assessment and Plan: # Stage II Bladder Cancer - found to have microscopic hematuria with history of kiedney stones - cystoscopy March 2020 demonstrated a 2 cm bladder tumor right bladder wall - CT Urogram without evidence of metastatic disease - 04/21/20 TURBT - High grade papillary urothelial carcinoma with glandular diffe rentiation, with invasion into subepithelial connective tissue and smooth muscle . - 05/04/20: [facility] path: Transurethral resection, bladder tumor (Slide L2): Papilla ry urothelial carcinoma, high-grade, with micropapillary features, invasive into muscularis propria. No definitive lymphovascular invasion identified. - 06/04/20 - radical cystectomy/prostatectomy with ileal conduit. Staged [id number] . - pathology consistent with residual high-grade papillary urothelial carcinoma, non-invasive - 04/03/21- CT A/P - severe rectal wall thickening with severe proctitis - antic ipated constipation, possible right lower quadrant urostomy with a large parasto mal bowel hernia. Left greater than right nephrolithiasis - 04/30/21 - CT A/P - moderate to severe proctitis, Interval left percutaneous n ephrolithotomy and percutaneous nephrostomy tube. A couple tiny residual calculi persist. Removal of the right nephroureteral stent and slight increase in mild hydronephrosis. Development of a small parastomal hernia. - 05/21/21- Colonoscopy, pathology: Glandular mucosa with atypical cellular proli feration of lamina propria. Addendum: Metastatic carcinoma: ROXANA-3 immunopositiv ity suggests urothelial carcinoma. Mr. Jenkins is a 70 year old male with recently diagnosed metastatic urothelial c arcinoma. Initially presented with microscopic hematuria in March 2020, at the time was found to have a T2 bladder mass, underwent a radical prostatectomy / c ystectomy without evidence of metastatic disease. He has been followed by urolog y for symptomatic urolithiasis, ultimately underwent a percutaneous nephrolithot khoa and nephrostomy tube placement. Workup at this time found thickening of the rectum - a colonoscopy on 05/21/21 demonstrated a hard, nodular rectum, biopsy wa s consistent with metastatic carcinoma, suggestive of urothelial carcinoma with positive ROXANA-3. He is symptomatic, with incontinence, loose, frequent stools li jaylin due to his rectal disease. Unfortunately this represents metastatic bladder cancer, we discussed this diagn osis with the patient and treatment options at this time. We discussed overall p rognosis, and treatment options based on Len 100, which evaluated unresectab le locally advanced or metastatic urothelial cancer to receive 4-6 cycles of gem citabine + cisplatin or carboplatin followed by maintenance avelumab if patients did not have progression. With the following regimen: Days 1,8: Gemcitabine 1,000mg/m2 IV over 30 minutes Day 1: Carboplatin AUC 5 IV over 30 minutes. Repeat cycle every for 4-6 cycles, conditionally followed by maintenance therapy with: Day 1: Avelumab 800mg IV over 60 minutes. Repeat cycle every 2 weeks. We discussed obtaining next generation sequencing on tissue, in consideration of subsequent lines of therapy. I discussed the potential benefits and risks associated with chemotherapy includ ing, but not limited to myelosuppression, (with risks of infection and need for transfusions or epo), alopecia, N/V, stomatitis, diarrhea, peripheral neuropathy , renal injury, dehydration, electrolyte abnormalities, increased risks of throm bosis, lung and cardiac injury and as a complication of any of these side effects. I also discussed the potential risks associated with the transfusion o f blood products, if needed. Will obtain baseline labs today: CBC, CMP. And plan to start chemotherapy in the next 1-2 weeks. Will refer patient to GI to help manage diarrhea. Hopefully with response this will improve. I had a follow-up discussion with the patient regarding their diagnosis of metas tatic urothelial carcinoma and his or her recommended treatment via telephone. I have recommended treatment with the following chemotherapy/biotherapy drugs: c arboplatin + gemcitabine. The goals and duration of treatment have been discusse d in detail. I explained alternative ways of treating the condition, including no treatment, and the risks and benefits of the alternatives. I offered the analy ent a chance to ask questions. Any questions asked have been answered. The analy ent has agreed to the recommended treatment. The patient also understands they will need to sign a form documenting our conversation and his or her agreement t he next time they are in clinic. Cody Louie MD Ob Scrub Tech of Oncology Early Phase Clinical Trials [facility] | | [email or web address], [place] [address] ICATION PROGRAMMER ANALYST documented in this encounter Plan of Treatment Order Schedule Name Type Priority Associated Diag noses Expected: 09/23/2021 (Approximate), Expi res: 06/25/2022 CBC AND DIFF Lab Routine Malignant neopl asm of overlapping sites of bladder (HCC) Expected: 09/23/2021 (Approximate), Expi res: 06/25/2022 COMPREHENSIVE METABOLIC Lab Routine Malign ant neoplasm of PANEL overlapping sites of bladder (HCC) Expected: 06/25/2021 (Approximate), Expi res: 06/25/2022 MAGNESIUM Lab Routine Malignant neopl asm of overlapping sites of bladder (HCC) documented as of this encounter Goals Goal Patient Associated Recent Progress Patient-Stat Aut hor Goal Type Problems ed? Resume normal activities Hospital Yes Aracelis Schaeffer, RN Note: To become as active as I can and get use to this thing on my side and return to normal activity. documented as of this encounter Visit Diagnoses Diagnosis Malignant neoplasm of overlapping sites of bladder (HCC) - Primary Malignant neoplasm of other specified s ites of bladder documented in this encounter Historical Medications * This list may reflect changes made after this encounter. Start Date End Date Medication Sig Dispensed Refills 06/22/2021 dicyclomine (BENTYL) 10 0 mg capsule 06/24/2021 ketorolac (ACULAR) 0.5 % 0 ophthalmic solution 06/22/2021 07/13/2021 colestipoL (COLESTID) 1 0 gram tablet added in this encounter Additional Health Concerns Noted Time Assessment 06/25/2021 8:18 AM APPLICATION PROGRAMMER ANALYST A fall risk assessment has been complet ed for the patient documented as of this encounter Care Teams Start Date End Date Bird Cage Assembler Relationship Specialty 05/17/20 Angelo Gordon MD PCP - General Internal [address] [facility] [address] [place] [id number] 05/17/20 Bartolo Cornejo MD Internal [address] [facility] [address] [place] [address] documented as of this encounter
--- OUTSIDE RECORDS SUMMARY | 2021-07-20 15:43 | XMS REPORT | Encounter Summary ---
Author Author [facility] Organization [facility] Address Unknown Phone Unavailable Care Team Providers Care Promotional Marketing Agent Name Role Phone Angelo Gordon MD PCP Bartolo Cornejo MD Unavailable Reason for Visit * Reason Comments Follow Up Encounter Details Care Team Description Date Type Department Cody Louie MD [address] [place] [address] 07/09/2021 Office Visit Oncology: [facility] [address] [facility]. [place], [place] [phone] Social History Date Tobacco Use Types Packs/Day Years Used Never Smoker Smokeless Tobacco: Never Used Comments Alcohol Use Standard Drinks/Week Not Currently 0 (1 standard drink = 0.6 o z pure alcohol) Sex Assigned at Date Recorded Male 05/18/2020 12:22 PM BEAUTY SALES CONSULTANT Date Recorded COVID-19 Exposure Response 07/12/2021 11:38 AM BEAUTY SALES CONSULTANT In the last month, have you been in contact with No / Unsure someone who was confirmed or suspected to have Coronavirus / COVID-19? documented as of this encounter Last Filed Vital Signs Reading Time Taken Comments Vital Sign 132/75 07/09/2021 9:36 AM BEAUTY SALES CONSULTANT Blood Pressure 63 07/09/2021 9:36 AM BEAUTY SALES CONSULTANT Pulse 36.4 C (97.5 F) 07/09/2021 9:36 AM BEAUTY SALES CONSULTANT Temperature 16 07/09/2021 9:36 AM BEAUTY SALES CONSULTANT Respiratory Rate 99% 07/09/2021 9:36 AM BEAUTY SALES CONSULTANT Oxygen Saturation - - Inhaled Oxygen Concentration 62.8 kg (138 lb 6.4 oz) 07/09/2021 9:36 AM BEAUTY SALES CONSULTANT Weight - - Height 21.04 06/30/2021 3:23 PM BEAUTY SALES CONSULTANT Body Mass Index documented in this encounter [...] track (07/12/2021 Yes April Marie, 6:07 PM BEAUTY SALES CONSULTANT) RN Note: "To heal and recover, and get stronger, be as healthy as I can" documented as of this encounter Visit Diagnoses Not on filedocumented in this encounter Historical Medications * This list may reflect changes made after this encounter. Start Date End Date Medication Sig Dispensed Refills prednisoLONE (PRELONE) 15 0 mg/5 mL oral syrup added in this encounter Additional Health Concerns Noted Time Assessment 07/09/2021 9:37 AM BEAUTY SALES CONSULTANT A fall risk assessment has been complet ed for the patient documented as of this encounter Care Teams Start Date End Date Promotional Marketing Agent Relationship Specialty 05/17/20 Angelo Gordon MD PCP - General Internal [address] [facility] [address] [place] [id number] 05/17/20 Bartolo Cornejo MD Internal [address] [facility] [address] [place] [address] documented as of this encounter
--- OUTSIDE RECORDS SUMMARY | 2021-07-20 15:43 | XMS REPORT | Encounter Summary ---
Author Author [facility] Organization [facility] Address Unknown Phone Unavailable Care Team Providers Care Commodities Manager Name Role Phone Angelo Gordon MD PCP Bartolo Cornejo MD Unavailable Reason for Visit * Reason Onset Date Comments Scheduling 06/21/2021 Encounter Details Care Team Description Date Type Department Keith Trinidad MD [address] [facility] [address] [place] [address] Scheduling 06/21/2021 Telephone Urology: [facility] [address], [place] [address] Social History Date Tobacco Use Types Packs/Day Years Used Never Smoker Smokeless Tobacco: Never Used Comments Alcohol Use Standard Drinks/Week Not Currently 0 (1 standard drink = 0.6 o z pure alcohol) Sex Assigned at Date Recorded Male 05/18/2020 12:22 PM CHASSIS ENGINEER documented as of this encounter Functional Status [...] encounter Miscellaneous Notes * Telephone Encounter - Haily Foley RN - 06/21/2021 10:07 AM CHASSIS ENGINEER Spoke with Mr. Jenkins who would like to do his imaging done in [place] as well as do his next appt as telehealth. I let him know [facility] in [place], [place] and that I would forward his telehealth request to Dr. Trinidad's team. He also inquired if Dr. Trinidad had received his biopsy results from his sigmoidos copy. No other questions or concerns at this time. SIS ENGINEER documented in this encounter Plan of Treatment [...] encounter Additional Health Concerns Noted Time Assessment 04/30/2021 9:50 AM CHASSIS ENGINEER A fall risk assessment has been complet ed for the patient documented as of this encounter Care Teams Start Date End Date Commodities Manager Relationship Specialty 05/17/20 Angelo Gordon MD PCP - General Internal [address] [facility] [address] [place] [id number] 05/17/20 Bartolo Cornejo MD Internal [address] [facility] [address] [place] [address] documented as of this encounter
--- OUTSIDE RECORDS SUMMARY | 2021-07-20 15:43 | XMS REPORT | Encounter Summary ---
Author Author [facility] Organization [facility] Address Unknown Phone Unavailable Care Team Providers Care Circuit Design Engineer Name Role Phone Angelo Gordon MD PCP Bartolo Cornejo MD Unavailable Reason for Visit * Reason Onset Date Comments Diarrhea 06/29/2021 Encounter Details Care Team Description Date Type Department Cody Louie MD [address] [place], [place] Diarrhea 06/29/2021 Telephone Oncology: [facility] [address] [facility]. [place], [place] [phone] Social History Date Tobacco Use Types Packs/Day Years Used Never Smoker Smokeless Tobacco: Never Used Comments Alcohol Use Standard Drinks/Week Not Currently 0 (1 standard drink = 0.6 o z pure alcohol) Sex Assigned at Date Recorded Male 05/18/2020 12:22 PM LEGAL OPERATIONS MANAGER documented as of this encounter Functional Status [...] encounter Miscellaneous Notes * Telephone Encounter - Rachel Truong RN - 06/29/2021 3:27 PM LEGAL OPERATIONS MANAGER Pt reports he is spending 75% of his day on the toilet as he has continual oozin g of stool despite Bentyl and Colestid. he reports his rectum is sore and even I mmodium did not really make a difference. dr Louie updated. Asked pt to reach o ut to his local GI team to see about any further suggestions and discussed we tia e working on trying to move tx sooner. Pt verbalizes understanding and will upda te us . L OPERATIONS MANAGER documented in this encounter Plan of Treatment Not on filedocumented as of this encounter Goals Goal Patient Associated Recent Progress Patient-Stat Aut hor Goal Type Problems ed? Resume normal activities Hospital Yes Aracelis Schaeffer, ERNST Note: To become as active as I can and get use to this thing on my side and return to normal activity. documented as of this encounter Visit Diagnoses Not on filedocumented in this encounter Additional Health Concerns Noted Time Assessment 06/25/2021 8:18 AM LEGAL OPERATIONS MANAGER A fall risk assessment has been complet ed for the patient documented as of this encounter Care Teams Start Date End Date Circuit Design Engineer Relationship Specialty 05/17/20 Angelo Gordon MD PCP - General Internal [address] [facility] [address] [place] [id number] 05/17/20 Bartolo Cornejo MD Internal [address] [facility] [address] [place] [address] documented as of this encounter
--- OUTSIDE RECORDS SUMMARY | 2021-07-20 15:43 | XMS REPORT | Encounter Summary ---
Author Author [facility] Organization [facility] Address Unknown Phone Unavailable Care Team Providers Care Senior Safety Support Manager Name Role Phone Angelo Gordon MD PCP Bartolo Cornejo MD Unavailable Encounter Details Care Team Description Date Type Department Cynthia Villela, ADRIANA 06/29/2021 Orders Only Oncology: [address] [phone] Social History Date Tobacco Use Types Packs/Day Years Used Never Smoker Smokeless Tobacco: Never Used Comments Alcohol Use Standard Drinks/Week Not Currently 0 (1 standard drink = 0.6 o z pure alcohol) Sex Assigned at Date Recorded Male 05/18/2020 12:22 PM CLOTH LAYER documented as of this encounter Functional Status [...] Concerns Noted Time Assessment 06/25/2021 8:18 AM CLOTH LAYER A fall risk assessment has been complet ed for the patient documented as of this encounter Care Teams Start Date End Date Senior Safety Support Manager Relationship Specialty 05/17/20 Angelo Gordon MD PCP - General Internal [address] [facility] [address] [place] [id number] 05/17/20 Bartolo Cornejo MD Internal [address] [facility] [address] [place] [address] documented as of this encounter
--- OUTSIDE RECORDS SUMMARY | 2021-07-20 15:43 | XMS REPORT | Encounter Summary ---
Author Author [facility] Organization [facility] Address Unknown Phone Unavailable Care Team Providers Care Senior Reservations Agent Name Role Phone Angelo Gordon MD PCP Bartolo Cornejo MD Unavailable Reason for Visit * Reason Comments Kidney Stone Encounter Details Care Team Description Date Type Department Kvng Rm MD [address] [facility] [address] [place] [address] Nephrolithiasis 06/30/2021 Office Visit Urology: [facility] [address], [place] [address] Social History Date Tobacco Use Types Packs/Day Years Used Never Smoker Smokeless Tobacco: Never Used Comments Alcohol Use Standard Drinks/Week Not Currently 0 (1 standard drink = 0.6 o z pure alcohol) Sex Assigned at Date Recorded Male 05/18/2020 12:22 PM STITCH WELDER Date Recorded COVID-19 Exposure Response 07/12/2021 11:38 AM STITCH WELDER In the last month, have you been in contact with No / Unsure someone who was confirmed or suspected to have Coronavirus / COVID-19? documented as of this encounter Last Filed Vital Signs Reading Time Taken Comments Vital Sign - - Blood Pressure - - Pulse - - Temperature - - Respiratory Rate - - Oxygen Saturation - - Inhaled Oxygen Concentration 63.5 kg (140 lb) 06/30/2021 3:23 PM STITCH WELDER Weight 172.7 cm (5' 8") 06/30/2021 3:23 PM STITCH WELDER Height 21.29 06/30/2021 3:23 PM STITCH WELDER Body Mass Index documented in this encounter [...] as of this encounter Progress Notes * Kvng Rm MD - 06/30/2021 4:00 PM STITCH WELDER Date of Service: 06/30/2021 Subjective: Chemo Jenkins is a 71 y.o. male who presents for follow-up of nephrolith iasis. History of Present Illness Chemo Jenkins is a 71 y.o. male with history of bladder cancer and recen t evidence of metastatic diease to the rectum and nepholithiasis who presents fo stone follow-up. The patient underwent antegrade access and retrograde ureteroscopy on 04/29/21. Post-op CT showed minimal residual stone. His left nephrostomy tube was removed 05/05/21. The patient saw Dr Trinidad yesterday and had a CT scan done at an outside hospital . This showed bilateral moderate non-obstructing nephrolithiasis. He denies flan k pain or hematuria. Medical History: Diagnosis Date Acid reflux did tx with zantac, now elevates pillows Arrhythmia PAF Arthritis Cancer (HCC) skin Hypertension Kidney stones Urothelial carcinoma (HCC) Surgical History: Procedure Laterality Date HX APPENDECTOMY 1969 HX VASECTOMY 1979 CATARACT REMOVAL Bilateral 2018 GLAUCOMA SURGERY Bilateral 2018 LASER EYE SURGERY Right 2019 CYSTOSCOPY 03/2020 TUMOR EXCISION 04/2020 bladder tumor excised Radical Cystectomy/Prostatectomy with Ileal Conduit; BPLND N/A 06/04/2020 Performed by Keith Trinidad MD at [facility] OR PERCUTANEOUS NEPHROSTOLITHOTOMY/ PYELOSTOLITHOTOMY - 2 CM OR LESS Right 11/12 Performed by Tristan Bowman MD at [facility] OR URETEROSCOPY WITH URETERAL STENT EXCHANGE Right 02/15/2021 Performed by Tristan Bowman MD at [facility] OR PERCUTANEOUS NEPHROSTOLITHOTOMY/ PYELOSTOLITHOTOMY - GREATER THAN 2 CM Left 04/29/2021 Performed by Kvng Rm MD at [facility] OR PERCUTANEOUS PLACEMENT NEPHROSTOMY CATHETER WITH NEPHROSTOGRAM/ URETEROGRAM/ IMAGE-GUIDANCE Left 04/29/2021 Performed by Kvng Rm MD at [facility] OR CYSTOURETHROSCOPY WITH URETEROSCOPY AND/ OR PYELOSCOPY - WITH REMOVAL/ MANIP ULATION CALCULUS Left 04/29/2021 Performed by Kvng Rm MD at [facility] OR Immunization History Administered Date(s) Administered COVID-19 (MODERNA), mRNA vacc, 100 mcg/0.5 mL (PF) 08/13/2020, 09/10/2020 No family history on file. Current Outpatient Medications Medication Sig Dispense Refill acetaminophen (TYLENOL) 500 mg tablet Take one tablet by mouth every 6 hours as needed for Pain. Max of 4,000 mg of acetaminophen in 24 hours. (Patient shayy ng differently: Take 500-1,000 mg by mouth every 6 hours as needed for Pain. Max of 4,000 mg of acetaminophen in 24 hours.) 20 tablet 0 aspirin EC 81 mg tablet Take 81 [...] On Day s 2-4 of each cycle. 30 tablet 0 dicyclomine (BENTYL) 10 mg capsule dorzolamide-timoloL (COSOPT) [...] RIGHT EYE AT BEDTIME Miscellaneous [facility] supplies and accessories Dispense one month of supplies Dx Bladder Cancer C67.9 20 each 99 ondansetron (ZOFRAN ODT) 4 mg rapid dissolve tablet Dissolve one tablet by m outh every 6 hours as needed for Nausea or Vomiting. Place on tongue to dissolve . 30 tablet 1 ondansetron HCL (ZOFRAN) 8 mg tablet Take one tablet by mouth every 8 hours as needed (nausea and vomiting). 30 tablet 0 oxyCODONE (ROXICODONE) 5 mg tablet Take one tablet by mouth every 6 hours as needed for Pain 15 tablet 0 polyethylene glycol 3350 (MIRALAX) 17 g packet Take one packet by mouth ky y as needed. 12 each 1 RHOPRESSA 0.02 % drop INSTILL 1 INTO RIGHT EYE AT BEDTIME senna/docusate (SENOKOT-S) 8.6/50 mg tablet Take one tablet by mouth daily a s needed. 90 tablet 0 Vit A,C,R-Khcs-Rbnadj (PRESERVISION AREDS) 14,320-226-200 abzi-pr-birs cap Take 2 capsules by mouth daily. No current facility-administered medications for this visit. Allergies Allergen Reactions Tegaderm BLISTERS Erythromycin RASH Readyprep Chg [Chlorhexidine Gluconate] RASH Social History Socioeconomic History Marital status: Spouse [...] file Social History Narrative Not on file Review of Systems Constitutional: Negative for fatigue, fever and unexpected weight change. HENT: Negative. Eyes: Negative for photophobia and visual disturbance. Respiratory: Negative for shortness of breath. Cardiovascular: Negative for chest pain. Gastrointestinal: Negative for abdominal pain, blood in stool, diarrhea, nausea and vomiting. Endocrine: Negative. Genitourinary: Negative. Musculoskeletal: Negative. Skin: Negative for color change, pallor, rash and wound. Neurological: Negative for weakness, light-headedness and numbness. Hematological: Negative for adenopathy. Psychiatric/Behavioral: Negative. Objective: acetaminophen (TYLENOL) 500 mg tablet Take [...] RIGHT EYE AT BEDTIME Miscellaneous [facility] supplies and accessories Dispense one month [...] by mouth daily a s needed. Vit A,C,D-Icoi-Eitriv (PRESERVISION AREDS) 14,320-226-200 tyfn-su-apgq cap Take 2 capsules by mouth daily. Vitals: 06/30/21 1523 Weight: 63.5 kg (140 lb) Height: 172.7 cm (68") PainSc: Zero Body mass index is 21.29 kg/m. Physical Exam Constitutional: General: He is not in acute distress. Appearance: He is well-developed. He is not diaphoretic. HENT: Head: Normocephalic and atraumatic. Eyes: General: No scleral icterus. Conjunctiva/sclera: Conjunctivae normal. Cardiovascular: Rate and Rhythm: Normal rate and regular rhythm. Pulmonary: Effort: Pulmonary effort is normal. No respiratory distress. Breath sounds: No stridor. Abdominal: General: There is no distension. Palpations: Abdomen is soft. There is no mass. Tenderness: There is no abdominal tenderness. There is no guarding or rebound . Musculoskeletal: General: Normal range of motion. Cervical back: Normal range of motion. Skin: General: Skin is warm and dry. Neurological: Mental Status: He is alert and oriented to person, place, and time. Psychiatric: Behavior: Behavior normal. Assessment and Plan: Problem Nephrolithiasis Nephrolithiasis 71 yo male with bladder cancer s/p RC/IC with newly diagnosed metastatic bladder cancer to the rectum returns for discussion of stone disease. Patient has not h ad any issues with stones since surgery. Recent CT shows small lower pole, non-o bstucting stones. Given other health challenges at this time, recommended observ ation of stone with follow-up in 9 months. PLAN: - follow-up in clinic in 9 months Patient seen and discussed with Dr. Rm, who directed plan of care. Miguel Vargas MD PGY-3 Urology ATTESTATION I personally performed the campo portions of the E/M visit, discussed case with re sident and concur with resident documentation of history, physical exam, assessm ent, and treatment plan unless otherwise noted. Staff name: Kvng Rm MD Date: 07/04/2021 CH WELDER documented in this encounter Plan of Treatment [...] track (07/12/2021 Yes April Marie, 6:07 PM STITCH WELDER) RN Note: "To heal and recover, and get stronger, be as healthy as I can" documented as of this encounter Visit Diagnoses Diagnosis Nephrolithiasis Calculus of kidney * Assessment & Plan Note - Miguel Vargas MD - 06/30/2021 4:01 PM STITCH WELDER Associated Problem(s): Nephrolithiasis 71 yo male with bladder cancer s/p RC/IC with newly diagnosed metastatic bladder cancer to the rectum returns for discussion of stone disease. Patient has not h ad any issues with stones since surgery. Recent CT shows small lower pole, non-o bstucting stones. Given other health challenges at this time, recommended observ ation of stone with follow-up in 9 months. PLAN: - follow-up in clinic in 9 months CH WELDER documented in this encounter Historical Medications * This list may reflect changes made after this encounter. Start Date End Date Medication Sig Dispensed Refills 07/13/2021 hydrocortisone acetate Insert or 0 (ANUSOL-HC) 25 mg rectal Apply 25 mg suppository to rectal area as directed every 12 hours. added in this encounter Additional Health Concerns Noted Time Assessment 06/25/2021 8:18 AM STITCH WELDER A fall risk assessment has been complet ed for the patient documented as of this encounter Care Teams Start Date End Date Senior Reservations Agent Relationship Specialty 05/17/20 Angelo Gordon MD PCP - General Internal [address] [facility] Medicine [facility] [address] [place] [id number] 05/17/20 Bartolo Cornejo MD Internal [address] [facility] [address] [place] [address] documented as of this encounter
--- OUTSIDE RECORDS SUMMARY | 2021-07-20 15:43 | XMS REPORT | Encounter Summary ---
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 [place], [place] [phone] Social History Date Tobacco Use Types Packs/Day Years Used Never Smoker Smokeless Tobacco: Never Used Comments Alcohol Use Standard Drinks/Week Not Currently 0 (1 standard drink = 0.6 o z pure alcohol) Sex Assigned at Date Recorded Male 05/18/2020 12:22 PM PASSENGER CAR UPHOLSTERER APPRENTICE documented as of this encounter Functional Status [...] as of this encounter Progress Notes * Rachel Truong, RN - 06/30/2021 10:36 AM PASSENGER CAR UPHOLSTERER APPRENTICE Pt reports he contacted GI and they ordered Anusol supp and mentioned pt rashaun vuong temporary colostomy. Discussed with pt that may be correct and we can discuss further at his appt on 07/09. Updated pt on appt times and need for COVID testing locally every 3 weeks prior to his chemotherapy. Orders faxed to Health system [phone] and pt informed he will need to go 72 hours prior t o D1 of each treatment. Also discussed Decadron and Zofran usage post chemo days will be discussed in detail at appt on 07/09. 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) documented as of this encounter [...] of lateral wall of u rinary bladder Encounter for screening laboratory test ing for COVID-19 virus in asymptomatic patient documented in this encounter Additional Health Concerns Noted Time Assessment 06/25/2021 8:18 AM PASSENGER CAR UPHOLSTERER APPRENTICE A fall risk assessment has been complet ed for the patient documented as of this encounter Care Teams Start Date End Date Technology Education Teacher Relationship Specialty 05/17/20 Angelo Gordon MD PCP - General Internal [address] [facility] [address] [id number] 05/17/20 Bartolo Cornejo MD Internal [address] [facility] [address] [place] [address] documented as of this encounter
--- OUTSIDE RECORDS SUMMARY | 2021-07-20 15:43 | XMS REPORT | Encounter Summary ---
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, [place] [id number] Social History Date Tobacco Use Types Packs/Day Years Used Never Smoker Smokeless Tobacco: Never Used Comments Alcohol Use Standard Drinks/Week Not Currently 0 (1 standard drink = 0.6 o z pure alcohol) Sex Assigned at Date Recorded Male 05/18/2020 12:22 PM IMPORT AND EXPORT CLERK documented as of this encounter Functional Status [...] as of this encounter Plan of Treatment Order Schedule Name Type Priority Associated Diag noses Expected: 06/23/2021 (Approximate), Expi res: 06/23/2022 CT ABD/PELV W CONTRAST Imaging Routine Maligna nt neoplasm of lateral wall of urinary bladder (HCC) Expected: 06/23/2021 (Approximate), Expi res: 07/23/2021 BASIC METABOLIC PANEL Lab Routine Malignan t neoplasm of lateral wall of urinary bladder [...] of lateral wall of u rinary bladder documented in this encounter Additional Health Concerns Noted Time Assessment 04/30/2021 9:50 AM IMPORT AND EXPORT CLERK A fall risk assessment has been complet ed for the patient documented as of this encounter Care Teams Start Date End Date Toggle Press Operator Relationship Specialty 05/17/20 Angelo Gordon MD PCP - General Internal [address] [facility] [address] [id number] 05/17/20 Bartolo Cornejo MD Internal [address] [facility] [address] [place] [address] documented as of this encounter
--- OUTSIDE RECORDS SUMMARY | 2021-07-20 15:43 | XMS REPORT | Encounter Summary ---
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 documented as of this encounter Last Filed Vital Signs Reading Time Taken Comments Vital Sign - - Blood Pressure - - Pulse - - Temperature - - Respiratory Rate - - Oxygen Saturation - - Inhaled Oxygen Concentration 63.5 kg (140 lb) 06/29/2021 9:17 AM MARINE PIPEFITTER HELPER Weight 172.7 cm (5' 8") 06/29/2021 9:17 AM MARINE PIPEFITTER HELPER Height 21.29 06/29/2021 9:17 AM MARINE PIPEFITTER HELPER Body Mass Index documented in this encounter [...] as of this encounter Progress Notes * Keith Trinidad MD - 06/29/2021 9:30 AM MARINE PIPEFITTER HELPER Date of Service: 06/29/2021 Subjective: Chemo Jenkins is a 71 y.o. male. Obtained patient's verbal consent to treat them and their agreement to [facility] policy and NPP via this telehealth visit during [facility] History of Present Illness Here for follow up of bladder cancer 06/04/2020: RC/IC: Ta+CIS N0 Recently he had rectal wall thickening He is pouching well His activity and energy levels are decreased He is not eating well He also is having a hard time coping Review of Systems Objective: acetaminophen (TYLENOL) 500 mg tablet Take [...] capsule Take 1 capsule by mouth daily. ketorolac (ACULAR) 0.5 % ophthalmic solution latanoprost (XALATAN) 0.005 % ophthalmic solution INSTILL 1 DROP INTO RIGHT EYE AT BEDTIME Miscellaneous Medical [employer] [facility] Urostomy supplies and accessories Dispense [...] by mouth daily a s needed. Vit A,C,J-Hnsp-Qwmtmf (PRESERVISION AREDS) 14,320-226-200 utlo-qq-iyjj cap Take 2 capsules by mouth daily. Vitals: 06/29/21 0917 Weight: 63.5 kg (140 lb) Height: 172.7 cm (68") PainSc: Seven Body mass index is 21.29 kg/m. Physical Exam NAD Assessment and Plan: Problem Malignant Neoplasm of Lateral Wall of Urinary Bladder (Hcc) History of Present Illness: History of kidney stones was found to have microscopic hematuria. Cystoscopy was completed mid Mar 2020 revealed a 2 cm bladder tumor right latera l wall. CT scan of abd and pelvis was completed Mar 2020 and right sided bladder wall th ickening was noted. 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 He denies a smoking hist ory, but states he was exposed to second hand smoke quite frequently. - 04/08/2020 CT UROGRAM - Continued nonobstructive [...] SLIDES: Final Diagnosis: A. Outside walter e "[id number]" (date collected 04/21/2020). 1. Transurethral resection, bladde r tumor (Slide L2): Papillary urothelial carcinoma, high-grade, with micropapil eulogio features, invasive into muscularis propria. No definitive lymphovascular in vasion identified. 05/19/2020. CHEST: 1. No thoracic lymphadenopathy. 2. Small right upper lobe perifissural favored to represent a benign lymph node or scar. A follow-up CT chest in 3-6 months could be obtained to assess for stability. ABDOMEN AND PELVIS: 1. Persistent, asymmetric, irregular right lateral bladder wall thickening with nonvisualization of a previous noted nodule projecting into the bladder lumen status post reported TURBT. The bladder wall thickening may be reactive or represent residual/infiltrative tumor. Continued attention on follow-up imaging or cystoscopy is suggested. 2. No abdominopelvic lymphadenopathy. 3. Nonobstructive bilateral nephrolithiasis without hydronephrosis. 06/04/2020: RC/IC: Ta+CIS N0 06/22/2020: Hgb 13.5; Cr 1.14 08/2020: Hgb 14; Cr 1.2; K/Cl wnl 05/2021: Rectal biopsy with metastatic cancer (urothelial ROXANA-3) Malignant neoplasm of lateral wall of urinary bladder (HCC) Continue treatment with med-onc Keith Trinidad MD I spent 20 minutes in discussion with the patient. NE PIPEFITTER HELPER documented in this encounter Plan of Treatment [...] lateral wall of u rinary bladder * Assessment & Plan Note - Keith Trinidad MD - 06/29/2021 3:54 PM MARINE PIPEFITTER HELPER Associated Problem(s): Malignant neoplasm of lateral wall of urinary bladder (HC C) Continue treatment with med-onc NE PIPEFITTER HELPER documented in this encounter Additional Health Concerns Noted Time Assessment 06/25/2021 8:18 AM MARINE PIPEFITTER HELPER A fall risk assessment has been complet ed for the patient documented as of this encounter Care Teams Start Date End Date Senior Fire Protection Engineer Relationship Specialty 05/17/20 Angelo Gordon MD PCP - General Internal [address] [facility] [address] [place] [id number] 05/17/20 Bartolo Cornejo MD Internal [address] [facility] [address] [place] [id number] documented as of this encounter
--- OUTSIDE RECORDS SUMMARY | 2021-07-20 15:43 | XMS REPORT | Encounter Summary ---
Author Author [facility] Organization [facility] Address Unknown Phone Unavailable Care Team Providers Care Drier Helper Name Role Phone Angelo Gordon MD PCP Bartolo Cornejo MD Unavailable Reason for Visit * Reason Comments Heme/Onc Care Encounter Details Care Team Description Date Type Department Cody Louie MD [address] [place] [address] 07/09/2021 Hospital Laboratory: [facility] 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 Vit A,C,B-Iwqv-Tnkkgw Take 2 0 (PRESERVISION AREDS) capsules by [id number] mouth daily. vjps-jw-alip cap 07/20/2021 07/20/2021 acetaminophen (TYLENOL) Take three [...] normal activity. documented as of this encounter Procedures Comments Procedure Name Priority Date/Time Associated Diag nosis HC CBC W/ AUTOMATED DIFF Routine 07/09/2021 Malig nant neoplasm of 9:19 AM HARMONIC ANALYST overlapping sites of bladder (HCC) HC COMPREHENSIVE Routine 07/09/2021 Malignant barney plasm of METABOLIC PANEL 9:19 AM HARMONIC ANALYST overlapping sites o f bladder (HCC) documented in this encounter Results * (ABNORMAL) COMPREHENSIVE METABOLIC PANEL (07/09/2021 9:19 AM HARMONIC ANALYST) Pathologist [facility] Sodium 137 137 - 147 MMOL/L [facility] Potassium 3.4 (L) 3.5 - 5.1 MMOL/L [facility] Chloride 101 98 - 110 MMOL/L [facility] Glucose 96 70 - 100 MG/DL [facility] Blood Urea 24 7 - 25 MG/DL [facility] Nitrogen Creatinine 1.16 0.4 - 1.24 MG/DL [facility] Calcium 9.3 8.5 - 10.6 MG/DL [facility] Total Protein 7.3 6.0 - 8.0 G/DL [facility] Total Bilirubin 0.7 0.3 - 1.2 MG/DL [facility] Albumin 4.2 3.5 - 5.0 G/DL [facility] Alk Phosphatase 85 25 - 110 U/L [facility] AST (SGOT) 25 7 - 40 U/L [facility] CO2 26 21 - 30 MMOL/L [facility] ALT (SGPT) 12 7 - 56 U/L [facility] Anion Gap 10 3 - 12 [facility] eGFR >60Comment: eGFR calculated >60 mL/min [facility] using the CKD-EPIcr_R equation Specimen Blood (substance) Performing Organization Address City/State/ZIP Code P dg Number [facility] [address] [place] [address] * (ABNORMAL) CBC AND DIFF (07/09/2021 9:19 AM HARMONIC ANALYST) Pathologist [facility] White Blood 9.6 4.5 - 11.0 K/UL [...] Address City/State/ZIP Code P dg Number [facility] [address] [place] [address] documented in this encounter Visit Diagnoses Diagnosis Malignant neoplasm of overlapping sites of bladder (HCC) - Primary Malignant neoplasm of other specified s ites of bladder documented in this encounter Additional Health Concerns Noted Time Assessment 07/09/2021 9:37 AM HARMONIC ANALYST A fall risk assessment has been complet ed for the patient documented as of this encounter Care Teams Start Date End Date Drier Helper Relationship Specialty 05/17/20 Angelo Gordon MD PCP - General Internal [address] [facility] [address] [place] [id number] 05/17/20 Bartolo Cornejo MD Internal [address] [facility] [address] [place] [id number] documented as of this encounter
--- OUTSIDE RECORDS SUMMARY | 2021-07-20 15:43 | XMS REPORT | Encounter Summary ---
Author Author [facility] Organization [facility] Address Unknown Phone Unavailable Care Team Providers Care Bracelet Form Coverer Name Role Phone Angelo Gordon MD PCP Bartolo Cornejo MD Unavailable Encounter Details Care Team Description Date Type Department Arrived 06/24/2021 Hospital Imaging: [facility], Encounter [facility] [address] [facility] [address] [facility] [address] [place] [address] Social History Date Tobacco Use Types Packs/Day Years Used Never Smoker Smokeless Tobacco: Never Used Comments Alcohol Use Standard Drinks/Week Not Currently 0 (1 standard drink = 0.6 o z pure alcohol) Sex Assigned at Date Recorded Male 05/18/2020 12:22 PM MARKETING PLANNER Date Recorded COVID-19 Exposure Response 07/12/2021 11:38 AM MARKETING PLANNER In the last month, have you been [...] track (07/12/2021 Yes April Marie, 6:07 PM MARKETING PLANNER) RN Note: "To heal and recover, and get stronger, be as healthy as I can" documented as of this encounter Procedures Comments Procedure Name Priority Date/Time Associated Diag nosis CT ABD/PEL EXTERNAL Routine 06/24/2021 IMAGING 12:00 AM MARKETING PLANNER documented in this encounter Results * CT ABD/PEL EXTERNAL IMAGING (06/24/2021 12:00 AM MARKETING PLANNER) Modality Anatomical Region Laterality Computed Radiography Specimen Narrative Scheduling, Silent - 07/20/2021 12:35 PM MARKETING PLANNER This order has been auto finalized and does not contain a result. documented in this encounter Visit Diagnoses Not on filedocumented in this encounter Additional Health Concerns Noted Time Assessment 04/30/2021 9:50 AM MARKETING PLANNER A fall risk assessment has been complet ed for the patient documented as of this encounter Care Teams Start Date End Date Bracelet Form Coverer Relationship Specialty 05/17/20 Angelo Gordon MD PCP - General Internal [address] [facility] [address] [place] [id number] 05/17/20 Bartolo Cornejo MD Internal [address] [facility] [address] [place] [id number] documented as of this encounter
--- OUTSIDE RECORDS SUMMARY | 2021-07-20 15:43 | XMS REPORT | Encounter Summary ---
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 [place], [place] [phone] Social History Date Tobacco Use Types Packs/Day Years Used Never Smoker Smokeless Tobacco: Never Used Comments Alcohol Use Standard Drinks/Week Not Currently 0 (1 standard drink = 0.6 o z pure alcohol) Sex Assigned at Date Recorded Male 05/18/2020 12:22 PM AUTO CLEANER Date Recorded COVID-19 Exposure Response 07/09/2021 9:00 AM AUTO CLEANER In the last month, have you been in contact with No / Unsure someone who was confirmed or suspected to have Coronavirus / COVID-19? documented as of this encounter Last Filed Vital Signs Reading Time Taken Comments Vital Sign 132/75 07/09/2021 10:06 AM AUTO CLEANER Blood Pressure 63 07/09/2021 10:06 AM AUTO CLEANER Pulse 36.4 C (97.5 F) 07/09/2021 10:06 AM AUTO CLEANER Temperature 16 07/09/2021 10:06 AM AUTO CLEANER Respiratory Rate 99% 07/09/2021 10:06 AM AUTO CLEANER Oxygen Saturation - - Inhaled Oxygen Concentration 62.8 kg (138 lb 6.4 oz) 07/09/2021 10:06 AM AUTO CLEANER Weight - - Height 21.04 06/30/2021 3:23 PM AUTO CLEANER Body Mass Index documented in this encounter [...] as of this encounter Progress Notes * Laina Cheney, SPRING FORMER MACHINE-OPHTHALMIC MEDICAL ASSISTANT - 07/09/2021 9:30 AM AUTO CLEANER Images from the original note were not [...] with metastatic urothelial carcinoma. He met with edical oncology here and plan to start chemotherapy. Unfortunately, over the la st 2 months he has had worsening ability [...] history is an appendectomy. They live in [facility]. They have a daughter coming into town [...] propria (detrusor muscle) (based on prior biopsy [id number]) Regional Lymph Nodes (pN) pN0: No lymph [...] 06/04/2020 Performed by Keith Trinidad MD at [facility] OR PERCUTANEOUS NEPHROSTOLITHOTOMY/ PYELOSTOLITHOTOMY - 2 CM OR LESS Right 11/12 Performed by Tristan Bowman MD at [facility] OR URETEROSCOPY WITH URETERAL STENT EXCHANGE Right 02/15/2021 Performed by Tristan Bowman MD at [facility] OR PERCUTANEOUS NEPHROSTOLITHOTOMY/ PYELOSTOLITHOTOMY - GREATER THAN 2 CM Left 04/29/2021 Performed by Kvng Rm MD at [facility] OR PERCUTANEOUS PLACEMENT NEPHROSTOMY CATHETER WITH NEPHROSTOGRAM/ URETEROGRAM/ IMAGE-GUIDANCE Left 04/29/2021 Performed by Kvng Rm MD at [facility] OR CYSTOURETHROSCOPY WITH URETEROSCOPY AND/ OR PYELOSCOPY - WITH REMOVAL/ MANIP ULATION CALCULUS Left 04/29/2021 Performed by Kvng Rm MD at [facility] OR No family history on file. Social [...] RIGHT EYE AT BEDTIME Miscellaneous Medical Supply [facility] Urostomy supplies and accessories Dispense one month [...] by mouth daily a s needed. Vit A,C,A-Wddo-Stbaab (PRESERVISION AREDS) 14,320226-200 fqup-cf-aies cap Take 2 capsules by mouth daily. [...] with the present plan. Patient has the [facility] ne numbers for the Cancer Center and was instructed on how to contact us with an y questions or concerns. This patient was seen and dicussed with my collaborating provider Dr. Maurice Díaz aft DO. Laina Cheney MSN, SPRING FORMER MACHINE, AGCNS-BC, AGPCNP-BC Advanced Practice Provider Colon and Rectal Surgery Surgical Oncology [place] for Dr. Cao, Dr. Morel and Dr. Danielle Pager: [phone] Available via LOAG CLEANER documented in this encounter Miscellaneous Notes * Patient Instructions - Mariya Ayala RN - 07/09/2021 9:30 AM AUTO CLEANER Images from the original note were not included. The [facility] Surgery Instructions Surgery Date: 07/12/21 (Please be aware that this appointment for your surgery will not be visible in [email or web address] portal.) Location: Your surgery will be held at The [facility] ([address] [place] [id number].) Where to park on the day of surgery: [address] (located just north of [address] on [facility]) Where to check in on the day of surgery: In the Admitting office (located on Level 1 of hospital at the main entrance. Arrival Time: The OR scheduling office must finalize the OR schedule before we can provide a t abel for your surgery. Your surgery start time and arrive times will be called ou t to you the day before your procedure between 2pm-4:30pm. If you have not heard from the hospital regarding our surgery time by 4:30PM the business day before your surgery, please call [phone]. The day of the procedure, if you cannot keep your appointment, or are delayed, augustus fontanez contact the surgery center immediately at [phone]. COVID-19 Testing: If you have been vaccinated for COVID-19, you do not need to complete COVID-19 s wab testing prior to surgery. With this being said, if you develop any COVID-19 Symptoms prior to surgery, please contact your physicians nurse GILDA. Eating and drinking: You must be on a clear liquid diet the entire day prior to surgery. Sips or small amounts of water and clear liquids may be consumed after 11pm, but must be stopped 2 hours before you need to arrive to the hospital the day of your surgery. Bowel Prep: MIRALAX BOWEL PREP for Procedure This will be completed the day prior to your surgery/procedure. Shopping List: (Purchase these over the counter supplies at least a day or two b efore the prep) 1) 64 ounces of a clear liquid (Gatorade Ice, Gingerale, Sprite, etc. Avoid Red , Bland & Purple) 2) 238g sized bottle of Miralax Powder 3) 1 bottle of Magnesium Citrate ([id number])- (do not take if you have kidney failure) 4) 4 tablets of Dulcolax The entire day before the procedure, beginning with your first meal of the day , drink a clear liquid diet only: DO NOT EAT ANY SOLID or CREAMED FOODS. o Clear liquids include: - Coffee (no creamers or milk), Tea, Water - flavored drinks, Gatorade, juices (No RED ORANGE or PURPLE in color) - broth, bouillon, jello (No RED, ORANGE or PURPLE in color) At 12 noon, drink the entire bottle of Magnesium Citrate. At 3 PM, take 4 tablets of Dulcolax by mouth. At 5 PM mix the entire bottle (238g) of Miralax with all 64oz of clear liqui d of choice. Try to finish drinking the entire 64 ounces of Miralax mixture in about 2 ho urs- this equates to drinking an 8oz glass every ten minutes. If you need more time, take it. We would prefer you to finish the entire prep than to stop part w ay through. Continue to drink lots of clear liquids to stay well hydrated and protect your k idneys. Your urine should be light yellow. If your urine becomes dark yellow y ou are not drinking enough. STOP drinking EVERYTHING 2 hours prior to your arriv al to the hospital the day of surgery/procedure. Hygiene: Shower the night before and the morning of your procedure with Hibicle ns (you can purchase this over the counter from any pharmacy or you may obtain a free bottle of this from the Pre-Anesthesia Testing clinics located at the [facility] in [place], [place] or [facility] in [facility]) - Please see instructions for shower below. Chlorhexidine gluconate (CHG) Pre-Surgery Shower Bathe with a chlorhexidine gluconate (CHG) liquid soap only if told to do so by a health care provider. Shower with this soap the DAY DEFORE and the MORNING OF your surgery. You should use 1/2 of the bottle with each shower. This mild soap reduces th e amount of germs on your skin that could cause an infection. Do not use the chlorhexidine soap if you are allergic to this product. Instea d, you should use Dial Anti-bacterial soap. Do not apply soap to any open wound. 1. Shampoo your hair, wash your face, and clean your genital area with the soap you normally use. 2. From the neck down, apply the chlorhexidine soap with a clean washcloth. Do not apply this soap near eyes, ears, or on genital area. This product can cause blindness or hearing loss if used on eyes or ears. 3. Do not shave surgical area. 4. Turn water off to prevent rinsing the chlorhexidine soap off too soon. Wash your body gently for 2 minutes. Pay special attention to the area where you will have your surgery. Do not wash with your regular soap after the chlorhexidine soap is used. 5. After this soap has been on your skin for 2 minutes, rinse your body thoroug hly. 6. Pat yourself dry with a clean, soft towel. 7. Do not put products such as lotion, deodorant, powder, or perfume/aftershave on your hair, face or skin after your shower. 8. Put on freshly laundered clothes and sleep on freshly laundered linens. 9. Wear freshly laundered clothes to the hospital the day of surgery. You can obtain a bottle of this from the pre-anesthesia clinic located in the [facility] ([address] [place] [address] - Ground floor of the [facility] just off the main entrance). If you are scheduled an appointment to yariel lester with the anesthesia team in this clinic, they will provide you a bottle duri ng your appointment. If you desire, you can purchase the liquid chlorhexidine soap over the counter a t most large drugstores including [employer], [employer] and [employer]. A prescription is not needed, but you may ask your pharmacist for assistance locating it in the [place]. A common brand name for this soap is Hibiclens, but any brand is acceptabl e to use. Personal Items: Do not wear makeup, fingernail eritrean, lotion, deodorant, or perfume Remove all metal jewelry and piercings. Bring a storage container for your glasses, contacts, hearing aids, dentures , etc. Thing to Bring: Personal identification (ID) Insurance card Medications: You will be given medication instructions by the Pre-Operative Assessment Cl inic (PAC). If you have NOT been scheduled a Pre-Operative Assessment appointmen t, you will receive a phone call to be triaged by the anesthesia team. Ple ase be sure to speak with the anesthesia team or attend your PAC appointment if setup for you. If you do not, this may result in cancellation or delay of your s urgery. If you did not receive medication instructions, or have questions about any of your current medications, as it relates to the day of your surgery, please [facility] [phone]. Transportation/Visitor Policy: During the COVID-19 crisis, They will allow 2 visitors during the time of the nixon rgery. You are to be admitted into the hospital following surgery. If you are in a priv ate room following surgery, two visitors will be allowed to see you at the same time. Only a maximum of 2 different people can see you per day. A visitor will b e allowed to stay the night with you once you have been admitted into a hospital room. When you are ready to be discharged, if no visitor is present, they will call your friend/family to notify them when to pick you up from the hospital. Exceptions include: No visitors allowed for patients with active COVID-19 infections. No visitors under the age of 12 are allowed for patients admitted to the [facility]. Only one visitor is allowed in perioperative and procedural waiting rooms du ring the time of surgery; no visitors allowed in pre/post areas until a patient is transferred to a patient room. Adult inpatients in semiprivate rooms may only have 2 visitor at a time, but may only have up to 2 different visitors in a single day. Due to space limitati on, if you are in a shared room with another patient, this is to be sure that th e other room occupant is allowed to have a visitor as well. All visitors will be screened upon entry and must: Wear a mask at all times until further notice. Maintain physical distancing of at least six feet from others. Wash hands or use hand back office medical assistant when entering or exiting patient rooms. Any visitors who have a fever or other cold- or flu-like symptoms will not be al lowed in [facility] facilities. We will continue to evaluate our recommendations and keep you updated on revisions based on our [facility] guidance. FMLA: If you have any FMLA or Short Term Disability Paperwork needs, you may have thes e faxed to [phone]- Attention to Mariya Ayala RN. Be sure your name and birthday are on the forms, along with a return fax number for this office to ret urn them to once completed. Please allow up to 7-10 business days for completion of paperwork. Billing Questions: A member of the business office will verify your medical benefits with your Swift[employer](TM) by [employer] company prior to your surgery. If you have questions about understanding t he cost of your care please call the Financial Customer Service at [phone]. You have been enrolled in a special program called Enhanced Recover After Surger y. This Program uses interventions that have been shown to reduce complications like blood clots, pneumonia and infection. It also helps to get you home sooner. Hill points are to do the presurgical exercises and walking program (which you w ill ready about below), drink your nutrition shakes before and after surgery as instructed, get up and walk as much as possible after surgery and follow your [facility] nurse's instructions about bathing and gum chewing after surgery. Presurgical Kits: You will be ordered a presurgical kit. This Presurgical Kit will include pro ducts designed to prepare you for surgery and assist in your recovery. If pre-operative antibiotics are indicated for your surgery, these will be i ncluded within the kit. There is a small fee for antibiotics included in this ki t. Your insurance should help cover the cost of these antibiotics, but whatever is not covered by your insurance, will be your responsibility to pay. Payment me thod for these antibiotics must be on file before the kit will be shipped to you r home. If you receive a call from the [facility], it is likel y a they need to enter a payment method in your account before they can ship thi s kit.) If you have not received this kit and it is 1.5 weeks prior to the date o f your procedure, please call the [facility] at phone number to inquire about the status of this kit. PreSurgical Dietary Consultation: You may receive a call from a enterprise application administrator prior to surgery. They may schedule a raoul shabazz call with you to discuss pre-surgical nutrition. Be aware, not every pat ient will receive a call. Enhanced Recovery After Surgery Education and Ostomy Videos 1. ERAS overview (colorectal only) Click here to be routed to video or visit htt [email or web address] 2. Home exercises before your surgery: Click here or visit [email or web address] 3. Exercises before your surgery #2: Click here or visit [email or web address] 4. Your epidural catheter after surgery: Click here or visit [email or web address] 5. What is an epidural?: Click here or visit [email or web address] 6. How to get out of bed after your surgery: Click here or visit [email or web address] 7. Activity after your surgery: Click here or visit [email or web address] 8. What is an ostomy: Click here or visit [email or web address] 9. Choosing your ostomy bag: Click Here to be routed to video or visit [email or web address] 10. Emptying your ostomy pouch: Click here or visit [email or web address] 11. Bathing with your stoma: Click here or visit [email or web address] 12. Managing ostomy complications: Click here or visit [email or web address] [facility] Before Surgery Walking Program: Your healthcare team would like you to participate in a walking program prior to your upcoming abdominal surgery. This will help to increase your endurance and strength before undergoing dominick irena. It is recommended that you make time to walk 5 days out of every week. Beginner Program Week 1: Begin with a 15-minute walk 5 minute warm up, 5 minute brisk walk, 5 minute cool down Walk at a light to moderate intensity. You should be able to talk when walking Add an additional 5 minutes or more every week as able to tolerate Week 2: 20 minutes 5 minute warm up, 10 minute walk, 5 minute cool down Week 3: 25 minutes 5 minute warm up, 10 minute walk, 5 minute cool down Week 4:30 minutes 5 minute warm up, 15 minute walk, 5 minute cool down You may break you walks up throughout the day if necessary. Remember to always rest as necessary and you should discontinue walking if you e xperience increased pain or dizziness. Where to walk: You can start with your neighborhood, a park, track, mall, living room, or gym. If you have peripheral neuropathy or are unable to walk, a stationary bike may be more appropropriate. Patients undergoing chemotherapy or radiation may have lower tolerance to exercise. A walking program is still recommended however you may want to lower frequency and intensity of the program Your healthcare team would like you to participate in a walking program prior to your upcoming abdominal surgery. This will help to increase your endurance and strength before undergoing dominick irena. It is recommended that you make time to walk 5 days out of very week. Advanced Program Week 1: Begin with a 30-minute walk 5 minute warm up, 20 minute walk, 5 minute cool down Walk at a brisk or vigorous speed if able Add an additional 10 or more minutes every week as able to tolerate Week 2: 40 minute walk 5 minute warm up, 30 minute walk, 5 minute cool down Week 3: 50 minute walk 5 minute warm up, 40 minute walk, 5 minute cool down Week 4: 60 minute walk 5 minute warm up, 40 minute walk, 5 minute cool down You may break you walks up multiple times throughout the day if needed. Remember to always rest as necessary you should discontinue walking if you exper ience increased pain or dizziness. [employer] is 14-17 RPE (rate of perceived exertion) Where to walk: You can start with your neighborhood, a park, track, mall, living room, or gym. AbdominalSurgery Prehab Exercises: Lower Extremity Strengthening Complete each exercise 5 times, then increase your repetitions as tolerated. SIT TO STAND Start seated in a chair. Without using your arms, slowly rise to full standing position. ? You can use your arms if you are unable to complete this exercise without th em. Slowly return to sitting. SIDE KICK Hold onto table, counter or sturdy chair for balance. Keep knee straight, toes pointed forward, move one leg outward. Return to start position. Repeat with other leg. BRIDGING Lie on your back with your knees bent and feet on the bed. Squeeze your buttocks muscles and slowly lift your hips off the bed to create a bridge with your body. Hold for 3 seconds and then lower yourself back to bed. Please refer to the Getting into and out of bed after abdominal surgery handout for further education. Back Safety: Getting Into and Out of Bed Safety Tip: After you stand up, wait a moment before walking to be sure youre not dizzy. Good posture protects your back when you sit, stand, and walk. It is also import ant while getting into and out of bed. Follow the steps below to get out of bed. Reverse them to get into bed. Roll Onto Your Side 1. Roll Onto Your Side Bend your knees up and keep them together. Reach your opposite arm across your body towards the direction of the roll. Roll your shoulders and hips at the same time, like a log, to avoid twisting. Raise Your Body 2. Raise Your Body Place hands on the bed in front of you. Bring your legs off the edge of the bed, as you push your upper body up with your arms. Allow the weight of your legs to help you move. Stand Up 3. Stand Up Lean forward from your hip and roll onto the balls of your feet. Flatten your stomach muscles to keep your back from arching. Using your arm and leg muscles, push yourself to a standing position. If you have questions, please call [phone]. Ask to be connected to Mariya dubose (Nurse for Dr. Cao). If your needs are URGENT and its after hours please call [phone] and have provider construction specialist paged. CLEANER documented in this encounter Plan of Treatment [...] Concerns Noted Time Assessment 07/09/2021 9:37 AM AUTO CLEANER A fall risk assessment has been complet ed for the patient documented as of this encounter Care Teams Start Date End Date Chief Nuclear Medicine Technologist Relationship Specialty 05/17/20 Angelo Gordon MD PCP - General Internal [address] [facility] [address] [place] [id number] 05/17/20 Bartolo Cornejo MD Internal [address] [place] [id number] documented as of this encounter
--- OUTSIDE RECORDS SUMMARY | 2021-07-20 15:43 | XMS REPORT | Encounter Summary ---
Author Author [facility] Organization [facility] Address Unknown Phone Unavailable Care Team Providers Care Butcher Apprentice Name Role Phone Angelo Gordon MD PCP Bartolo Cornejo MD Unavailable Reason for Visit * Auth/Cert Diagnoses / Procedures Referred By Contact Referred To Conta ct Specialty Diagnoses Malignant neoplasm of urinary bladder, unspecified site (HCC) Malignant neoplasm of urinary bladder, unspecified site (HCC) [C67.9] Procedures TN COLOSTOMY/SKIN LEVEL CECOSTOMY COLOSTOMY/ SKIN LEVEL CECOSTOMY Referral ID Status Reason Start Date Expiration Visits Vi sits Date Requested Authorized [id number] 1 1 Encounter Details Care Team Description Date Type Department Dallas Gaxiola MD [address] [address] Venkata Lindsey MD [address] [address] 07/12/2021 Anesthesia Operating Room: Cam bridge Event [facility] [address] [place] [address] Anesthesia Record Responsible Anesthesiologist Anesthesia Start Time Anesthesi a Stop Time Procedure Name Dallas Gaxiola MD 07/12/21 1231 07/12/21 1424 EXPLORATORY LAPAROTOMY, DIVERTING LOOP COLOSTOMY (N/A Abdomen) Date Time Event Comment 1038 AN Equip Check 2021 1211 1229 In Room 1231 Anes Start 1231 An Start Data 1231 Antibiotic Given 1238 An Induction The patient was ree valuated immediately before moderate or deep sedation use and before anesthesia induction. 1239 An Intubation 1244 Anesthesia Ready 1253 Proc Start 1414 An Extubation 1417 an stop data 1424 Handoff to RN I completed my SBAR handoff to the receiving nurse. 1424 An Stop Meds Name Total fentaNYL PF (SUBLIMAZE) injection 300 mcg lidocaine (2%) 200 mg/10mL Injection 80 mg syringe propofol (DIPRIVAN) 200 mg/ 20 mL 120 mg injection (VIAL) rocuronium (ZEMURON) injection 50 mg ondansetron (ZOFRAN) injection 4 mg dexamethasone (DECADRON) 4 mg/mL 4 mg injection phenylephrine (KATLYN-SYNEPHRINE) 0.1 mg/mL 200 mcg injection syr sugammadex (BRIDION) 100 mg/mL iv soln 140 mg artificial tears (dextran 2 drop 70/hypromellose) ophthalmic drops famotidine (PEPCID) inj 20 mg ceFAZolin (ANCEF) 2 g sodium chloride 0.9 % infusion 450 mL * Name O2 N2O Inspired Sevoflurane Inspired Sevoflurane * No blood administrations on file. Removal Type Details Placement Ileal 06/04/20; 0550; Lower Right Quadrant 1 08/05/19 0550 by Sarah Campos RN NEPHROSTOM 04/28/21; 1245; Flank, Left Lower 04/19 1245 by Arabella Y TUBE Lateral; 8 FR ERNST [place] Colostomy 07/12/21; 1354; Upper Left Quadrant 1354 by Radha Patino, ERNST 07/20/21 1223 by Jose Customs Director Wounds Medial; Abdomen; 07/20/21; 1223 1303 by 07/20/21 1230 by Dena Cotton RN Peripheral 07/12/21; 1157; RN; L; Lower; Forearm; 07/12/21 1157 by Antonino IV 18 G; 07/20/21; 1230 ERNST [place] 07/12/21 1414 by Emi Srivastava CR NA ETT 07/12/21; 1239; Ventilated by mask (1); 07/12/21 1239 by Direct laryngoscopy; Single-Lumen; ETT Emi Srivastava CRNA Size: 7.5mm; Mac; Blade Size: 3; Cricoi d Pressure: Yes; Oral; 1-Full view of the glottis; Auscultation, ETCO2 Detector; Taped at Gums: 24 centimeters; Atraumatic dentition unchanged pre to post DL; 07/12/21; 1414 07/12/21 1425 by Shari Trujillo RN Indwelling 07/12/21; 1250; 16 FR; Regular (Two-way ) 07/12/21 1250 by Urinary (In Illeal conduit); 07/12/21; 1425 (no Radha Ruano RN Catheter present upon arrival to pac u) documented in this encounter Social History Date Tobacco Use Types Packs/Day Years Used Never Smoker Smokeless Tobacco: Never Used Comments Alcohol Use Standard Drinks/Week Not Currently 0 (1 standard drink = 0.6 o z pure alcohol) Sex Assigned at Date Recorded Male 05/18/2020 12:22 PM YEAST DISTILLER Date Recorded COVID-19 Exposure Response 07/12/2021 11:38 AM YEAST DISTILLER In the last month, have you been [...] impairment: No documented as of this encounter OR Notes * Anesthesia Postprocedure Evaluation - Dallas Gaxiola MD - 07/12/2021 4:36 PM YEAST DISTILLER Post-Anesthesia Evaluation Name: Chemo Jenkins : 1950 Age: 71 y.o . Sex: male Procedure Information Anesthesia Start Date/Time: 07/12/21 1231 Procedure: EXPLORATORY LAPAROTOMY, DIVERTING LOOP COLOSTOMY (N/A Abdomen) - 1 h r, REQUEST 1300 START Location: [place] [address] / [facility] OR/Periop Surgeons: Maurice Cao DO Post-Anesthesia Vitals BP: 100/71 (07/12 1615) Pulse: 77 (07/12 1615) Respirations: 16 PER MINUTE (07/12 161) SpO2: 92 % (07/12 161) SpO2 Pulse: 76 (07/12 161) Vitals Value Taken Time BP 100/71 07/12/21 1615 Temp 36.8 C (98.2 F) 07/12/21 1423 Pulse 77 07/12/21 1615 Respirations 16 PER MINUTE 07/12/21 1615 SpO2 92 % 07/12/21 1615 ABP ART BP Post Anesthesia Evaluation Note Evaluation location: Pre/Post Patient participation: recovered; patient participated in evaluation Level of consciousness: alert Pain score: 4 Pain management: adequate Hydration: normovolemia Temperature: 36.0C - 38.4C Airway patency: adequate Perioperative Events Postoperative Status Cardiovascular status: hemodynamically stable Respiratory status: spontaneous ventilation Perioperative Events Perioperative Event: No Emergency Case Activation: No T DISTILLER * Anesthesia Preprocedure Evaluation - Emi Srivastava CRNA - 07/12/2021 11:31 AM YEAST DISTILLER Anesthesia Pre-Procedure Evaluation Name: Chemo Jenkins : 1950 Age: 71 y.o . Sex: male Procedure Info: Procedure Information Date/Time: 07/12/21 1300 Procedure: COLOSTOMY/ SKIN LEVEL CECOSTOMY (N/A ) - 1 hr, REQUEST 1300 START Location: [facility] OR08 / [facility] OR/Periop Surgeons: Maurice Cao DO Physical Assessment Vital Signs (last filed in past 24 hours): Patient History Medical History: Diagnosis Date Acid reflux [...] 06/04/2020 Performed by Keith Trinidad MD at [facility] OR PERCUTANEOUS NEPHROSTOLITHOTOMY/ PYELOSTOLITHOTOMY - 2 CM OR LESS Right 11/12 Performed by Tristan Bowman MD at [facility] OR URETEROSCOPY WITH URETERAL STENT EXCHANGE Right 02/15/2021 Performed by Tristan Bowman MD at [facility] OR PERCUTANEOUS NEPHROSTOLITHOTOMY/ PYELOSTOLITHOTOMY - GREATER THAN 2 CM Left 04/29/2021 Performed by Kvng Rm MD at [facility] OR PERCUTANEOUS PLACEMENT NEPHROSTOMY CATHETER WITH NEPHROSTOGRAM/ URETEROGRAM/ IMAGE-GUIDANCE Left 04/29/2021 Performed by Kvng Rm MD at [facility] OR CYSTOURETHROSCOPY WITH URETEROSCOPY AND/ OR PYELOSCOPY - WITH REMOVAL/ MANIP ULATION CALCULUS Left 04/29/2021 Performed by Kvng Rm MD at [facility] OR Allergies Allergen Reactions Tegaderm BLISTERS Erythromycin RASH Readyprep Chg [Chlorhexidine Gluconate] RASH Current Medications Medication Directions acetaminophen (TYLENOL) 500 mg tablet Take one tablet by mouth every 6 hours as needed for Pain. Max of 4,000 mg of acetaminophen in 24 hours. Patient taking differently: Take 500-1,000 mg by mouth every 6 hours as needed f or Pain. Max of 4,000 mg of acetaminophen in 24 hours. aspirin EC 81 mg tablet Take 81 mg by mouth at bedtime daily. Take with food. atenoloL (TENORMIN) 50 mg tablet Take 50 mg by mouth every morning. brimonidine (ALPHAGAN) 0.2 % ophthalmic solution INSTILL 1 DROP INTO RIGHT EYE T WICE DAILY cetirizine (ZYRTEC) 10 mg tablet Take 5 mg by mouth daily as needed. colestipoL (COLESTID) 1 gram tablet dexAMETHasone (DECADRON) 4 mg tablet Take two tablets by mouth daily. On Days 2- 4 of each cycle. dicyclomine (BENTYL) 10 mg capsule dorzolamide-timoloL (COSOPT) 2-0.5 % ophthalmic solution INSTILL 1 DROP INTO RIG HT EYE TWICE DAILY famotidine (PEPCID) 20 mg tablet Take 20 mg by mouth twice daily as needed. fish oil /omega-3 fatty acids (SEA-OMEGA) 340/1000 mg capsule Take 1 capsule by mouth daily. hydrocortisone acetate (ANUSOL-HC) 25 mg rectal suppository Insert or Apply 25 m g to rectal area as directed every 12 hours. ketorolac (ACULAR) 0.5 % ophthalmic solution latanoprost (XALATAN) 0.005 % ophthalmic solution INSTILL 1 DROP INTO RIGHT EYE AT BEDTIME [facility] Dispense one month of supplies Dx Bladder Cancer C67.9 ondansetron (ZOFRAN ODT) 4 mg rapid dissolve tablet Dissolve one tablet by mouth every 6 hours as needed for Nausea or Vomiting. Place on tongue to dissolve. ondansetron HCL (ZOFRAN) 8 mg tablet Take one tablet by mouth every 8 hours as n eeded (nausea and vomiting). oxyCODONE (ROXICODONE) 5 mg tablet Take one tablet by mouth every 6 hours as nee ded for Pain polyethylene glycol 3350 (MIRALAX) 17 g packet Take one packet by mouth daily as needed. prednisoLONE (PRELONE) 15 mg/5 mL oral syrup RHOPRESSA 0.02 % drop INSTILL 1 INTO RIGHT EYE AT BEDTIME senna/docusate (SENOKOT-S) 8.6/50 mg tablet Take one tablet by mouth daily as ne eded. Vit A,C,F-Xyxy-Fmikhl (PRESERVISION AREDS) 14,320-226-200 lsip-sq-dtyt cap Take 2 capsules by mouth daily. Review of Systems/Medical History Patient summary reviewed Nursing notes reviewed Pertinent labs reviewed PONV Screening: Non-smoker and Postoperative opioids No history of anesthetic complications (after last surgery; pt developed rash on abdomen (unsure if 2/2 to meds or betadine wash)) No family history of anesthetic complications Airway - negative Previous intubation grade 1 view with Mac 3, maskable Pulmonary - negative Not a current smoker No indications/hx of pneumonia No sleep apnea Cardiovascular Exercise tolerance: >4 METS (can ascend 3-4 flights without angina/dyspnea) Beta Francia therapy: Yes Beta francia within 24 hours: unsure when last dose was usually takes in a.m . Hypertension, well controlled No past NE, No hx of coronary artery disease No PTCA (November with PVC) Palpitations Dysrhythmias (PAF; treated with meds; no watermelon inspector anticoagulant; none since 2013) No angina No indications/hx of PVD No orthopnea No syncope Previously treated for a fib and symptoms resolved; then November 2019 pt noted palpitations; EKG and stress test WNL per pt GI/Hepatic/Renal GERD (using OTC), well controlled No peptic ulcer disease No hx of liver disease No renal disease (stones; cr - 1.2) Neuro/Psych - negative Musculoskeletal Arthritis Endocrine/Other No diabetes No autoimmune disease Malignancy (bladder cancer s/p cystectomy) Constitution - negative Physical Exam Airway Findings Mallampati: II TM distance: >3 FB Neck ROM: full Mouth opening: good Airway patency: adequate Dental Findings: Negative Cardiovascular Findings: Rhythm: regular Rate: normal Pulmonary Findings: Breath sounds clear to auscultation. Abdominal Findings: Abdominal exam deferred Neurological Findings: Alert and oriented x 3 Constitutional findings: No acute distress Diagnostic Tests Hematology: Lab Results Component Value Date HGB 13.3 07/09/2021 HCT 39.9 07/09/2021 PLTCT 208 07/09/2021 WBC 9.6 07/09/2021 NEUT 85 07/09/2021 ANC 8.20 07/09/2021 ALC 0.40 07/09/2021 MARIBELL 9 07/09/2021 AMC 0.90 07/09/2021 EOSA 1 07/09/2021 ABC 0.10 07/09/2021 MCV 90.6 07/09/2021 MCH 30.1 07/09/2021 MCHC 33.2 07/09/2021 MPV 7.8 07/09/2021 RDW 13.9 07/09/2021 General Chemistry: Lab Results Component Value Date NA 137 07/09/2021 K 3.4 07/09/2021 CL 101 07/09/2021 CO2 26 07/09/2021 GAP 10 07/09/2021 BUN 24 07/09/2021 CR 1.16 07/09/2021 GLU 96 07/09/2021 CA 9.3 07/09/2021 ALBUMIN 4.2 07/09/2021 OBSCA 1.17 06/04/2020 MG 1.8 04/30/2021 TOTBILI 0.7 07/09/2021 PO4 2.8 04/30/2021 Coagulation: Lab Results Component Value Date INR 1.1 03/31/2021 Anesthesia Plan ASA score: 3 Plan: general NPO status: acceptable Informed Consent Anesthetic plan and risks discussed with patient. Use of blood products discussed with patient Plan discussed with: anesthesiologist and [facility]. T DISTILLER documented in this encounter Plan of Treatment [...] illness Hospital On track (07/12/2021 Yes April aMrie, 6:07 PM YEAST DISTILLER) RN Note: "To heal and recover, and get stronger, be as healthy as I can" documented as of this encounter Visit Diagnoses Not on filedocumented in this encounter Administered Medications Action Date Dose Rate Site Medication Order MAR Action 07/12/2021 12:40 PM YEAST DISTILLER 2 drops artificial tears single dose ophthalmic Given solution Both Eyes, INTRA-PROCEDURE MED, Startin g on Mon07/12/21 at 1240, Until Mon07/12/21 at 1424, Anesthesia Intra-op 07/12/2021 12:31 PM YEAST DISTILLER 2 g ceFAZolin (ANCEF) injection Given Intravenous, INTRA-PROCEDURE MED, Starting on Mon07/12/21 at 1231, Until Mon07/12/21 at 1424, Anesthesia Intra-o p 07/12/2021 12:56 PM YEAST DISTILLER 4 mg dexamethasone (DECADRON) injection Given Intravenous, INTRA-PROCEDURE MED, Starting on Mon07/12/21 at 1256, Until Mon07/12/21 at 1424, Anesthesia Intra-o p 07/12/2021 12:06 PM YEAST DISTILLER 20 mg famotidine (PEPCID) injection Given Intravenous, INTRA-PROCEDURE MED, Starting on Mon07/12/21 at 1206, Until Mon07/12/21 at 1424, Anesthesia Intra-o p 07/12/2021 1:46 PM YEAST DISTILLER 50 mcg fentaNYL citrate PF (SUBLIMAZE) Given injection Intravenous, INTRA-PROCEDURE MED, Starting on Mon07/12/21 at 1238, Until Mon07/12/21 at 1424, Anesthesia Intra-o p 50 mcg Given 07/12/2021 1:19 PM YEAST DISTILLER 100 mcg Given 07/12/2021 12:56 PM YEAST DISTILLER 100 mcg Given 07/12/2021 12:38 PM YEAST DISTILLER 07/12/2021 12:38 PM YEAST DISTILLER 80 mg lidocaine (PF) injection Given Intravenous, INTRA-PROCEDURE MED, Starting on Mon07/12/21 at 1238, Until Mon07/12/21 at 1424, Anesthesia Intra-o p 07/12/2021 12:56 PM YEAST DISTILLER 4 mg ondansetron (ZOFRAN) injection Given Intravenous, INTRA-PROCEDURE MED, Starting on Mon07/12/21 at 1256, Until Mon07/12/21 at 1424, Anesthesia Intra-o p 07/12/2021 1:58 PM YEAST DISTILLER 100 mcg phenylephrine (KATLYN-SYNEPHRINE) injection Given syringe Intravenous, INTRA-PROCEDURE MED, Starting on Mon07/12/21 at 1340, Until Mon07/12/21 at 1424, Anesthesia Intra-o p 100 mcg Given 07/12/2021 1:40 PM YEAST DISTILLER 07/12/2021 12:57 PM YEAST DISTILLER 20 mg propofol (DIPRIVAN) injection Given Intravenous, INTRA-PROCEDURE MED, Starting on Mon07/12/21 at 1238, Until Mon07/12/21 at 1424, Anesthesia Intra-o p 100 mg Given 07/12/2021 12:38 PM YEAST DISTILLER 07/12/2021 1:33 PM YEAST DISTILLER 10 mg rocuronium injection Given Intravenous, INTRA-PROCEDURE MED, Starting on Mon07/12/21 at 1238, Until Mon07/12/21 at 1424, Anesthesia Intra-o p 5 mg Given 07/12/2021 1:05 PM YEAST DISTILLER 5 mg Given 07/12/2021 12:56 PM YEAST DISTILLER 30 mg Given 07/12/2021 12:38 PM YEAST DISTILLER 07/12/2021 1:05 PM YEAST DISTILLER sodium chloride 0.9 % infusion Given - New 250 mL, 250 mL, Intravenous, at 10 Bag mL/hr, CONTINUOUS, Starting on Mon07/12/21 at 1130, Until Mon07/12/21 at 2318, Hang bag in Preop 250 mL 10 mL/hr Given - New Bag 07/12/2021 12:02 PM YEAST DISTILLER 07/12/2021 2:00 PM YEAST DISTILLER 140 mg sugammadex (BRIDION) injection Given Intravenous, INTRA-PROCEDURE MED, Starting on Mon07/12/21 at 1400, Until Mon07/12/21 at 1424, Anesthesia Intra-o p documented in this encounter Additional Health Concerns Noted Time Assessment 07/12/2021 10:42 PM YEAST DISTILLER A fall risk assessment has been complet ed for the patient documented as of this encounter Care Teams Start Date End Date Butcher Apprentice Relationship Specialty 05/17/20 Angelo Gordon MD PCP - General Internal [address] [facility] Medicine [address] [place] [id number] 05/17/20 Bartolo Cornejo MD Internal [address] [facility] [address] [place] [id number] documented as of this encounter
--- OUTSIDE RECORDS SUMMARY | 2021-07-20 15:43 | XMS REPORT | Encounter Summary ---
Author Author [facility] Organization [facility] Address Unknown Phone Unavailable Care Team Providers Care Hard Rock Miner Blasting Name Role Phone Angelo Gordon MD PCP Bartolo Cornejo MD Unavailable Reason for Visit * Reason Onset Date Comments General Question 06/22/2021 Encounter Details Care Team Description Date Type Department Keith Trinidad MD [address] Ortho[facility] [address] [place] [address] General Question 06/22/2021 Telephone Urology: Nilesh brandon, [facility] [address], [address] [place] [address] Social History Date Tobacco Use Types Packs/Day Years Used Never Smoker Smokeless Tobacco: Never Used Comments Alcohol Use Standard Drinks/Week Not Currently 0 (1 standard drink = 0.6 o z pure alcohol) Sex Assigned at Date Recorded Male 05/18/2020 12:22 PM SENIOR UX DESIGNER documented as of this encounter Functional Status [...] encounter Miscellaneous Notes * Telephone Encounter - Siria Parekh LPN - 06/22/2021 11:45 AM SENIOR UX DESIGNER Alison from [facility] is [employer] is calling because she needs a recent BU N/Weatherization Administrator and orders for a CT of chest with contrast. I talked to Latoya DUKES who reque sted I give the call to Dinora for clarification since was supposed to do imagin g here. I gave her the info and she said she already had it. She states she will call the pt. OR UX DESIGNER documented in this encounter Plan of Treatment [...] Concerns Noted Time Assessment 04/30/2021 9:50 AM SENIOR UX DESIGNER A fall risk assessment has been complet ed for the patient documented as of this encounter Care Teams Start Date End Date Hard Rock Miner Blasting Relationship Specialty 05/17/20 Angelo Gordon MD PCP - General Internal [address] [facility] [address] [place] [id number] 05/17/20 Bartolo Cornejo MD Internal [address] [facility] Medicine [address] [place] [id number] documented as of this encounter
--- OUTSIDE RECORDS SUMMARY | 2021-07-20 15:43 | XMS REPORT | Encounter Summary ---
Author Author [facility] Organization [facility] Address Unknown Phone Unavailable Care Team Providers Care Microstrategy Developer Name Role Phone Angelo Gordon MD PCP Bartolo Cornejo MD Unavailable Reason for Visit * Auth/Cert Diagnoses / Procedures Referred By Contact Referred To Conta ct Specialty Diagnoses Malignant neoplasm of urinary bladder, unspecified site (HCC) Malignant neoplasm of urinary bladder, unspecified site (HCC) [C67.9] Procedures KS COLOSTOMY/SKIN LEVEL CECOSTOMY COLOSTOMY/ SKIN LEVEL CECOSTOMY Referral ID Status Reason Start Date Expiration Visits Vi sits Date Requested Authorized [id number] 1 1 Encounter Details Care Team Description Date Type Department Maurice Cao DO [address] [place] [address] EXPLORATORY LAPAROTOMY, DIVERTING LOOP C OLOSTOMY 07/12/2021 Surgery Operating Room: [address] [place] [address] Surgery Details Trauma Case? Date/Time Status Location OR Service Patient Class Case Class Case Type 07/12/21 Posted CA3 OR CA3 OR08 Surgery Planned Elective - 1:00 PM Oncology Inpatient Treating conditions that are not life or limb threatenin g Panel 1 Procedure LRB Anes Op Region Wound Class Com ments EXPLORATORY LAPAROTOMY, N/A Defer to Abdomen Clean 1 hr, REQUEST 1300 START DIVERTING LOOP COLOSTOMY Anesthesia Contaminated Panel Surgeon Surgeon Role Service 1 Maurice Cao DO Primary Surgery Oncology 1 Scott Garcia MD Resident - Assisting Surgery Oncology Social History Date Tobacco Use Types Packs/Day Years Used Never Smoker Smokeless Tobacco: Never Used Comments Alcohol Use Standard Drinks/Week Not Currently 0 (1 standard drink = 0.6 o z pure alcohol) Sex Assigned at Date Recorded Male 05/18/2020 12:22 PM FIRE DEPARTMENT MARINE ENGINEER Date Recorded COVID-19 Exposure Response 07/12/2021 11:38 AM FIRE DEPARTMENT MARINE ENGINEER In the last month, have you been in contact with No / Unsure someone who was confirmed or suspected to have Coronavirus / COVID-19? documented as of this encounter Last Filed Vital Signs Reading Time Taken Comments Vital Sign 145/91 07/12/2021 3:00 PM FIRE DEPARTMENT MARINE ENGINEER Blood Pressure 57 07/12/2021 3:00 PM FIRE DEPARTMENT MARINE ENGINEER Pulse 36.8 C (98.2 F) 07/12/2021 2:23 PM FIRE DEPARTMENT MARINE ENGINEER Temperature - - Respiratory Rate 99% 07/12/2021 3:00 PM FIRE DEPARTMENT MARINE ENGINEER Oxygen Saturation - - Inhaled Oxygen Concentration 64.8 kg (142 lb 12.8 oz) 07/12/2021 11:46 AM FIRE DEPARTMENT MARINE ENGINEER Weight 172.7 cm (5' 8") 07/12/2021 11:46 AM FIRE DEPARTMENT MARINE ENGINEER Height 21.72 07/15/2021 9:04 AM FIRE DEPARTMENT MARINE ENGINEER Body Mass Index documented in this encounter [...] * Chemo Ely - 07/20/2021 12:22 PM FIRE DEPARTMENT MARINE ENGINEER Case Management Progress Note NAME:Chemo Jenkins DO B:1950 AGE: 71 y.o. ADMISSION DATE: 07/12/2021 DAYS ADMITTED: LOS: 8 days Todays Date: 07/20/2021 Plan Patient will DC to [facility] Interventions Support Info or Referral SW submitted referral for outpatient palliative care follow up at [facility] Discharge Planning Medication Needs Financial Legal Other [...] - Dis charge disposition: Rehab Facility (Not [facility]) [facility] Destination Coordination complete. Service Provider Selected Services Address Phone Fax Patient Preferred [facility] Inpatient Rehabilitation [address] [facility] [address] [phone] Chemo Ely LMSW Voalte Pager: [phone] Office: [phone] DEPARTMENT MARINE ENGINEER * Isamar Mart LMSW - 07/20/2021 10:44 AM FIRE DEPARTMENT MARINE ENGINEER Case Management Progress Note NAME:Chemohugo Jenkins DO B:1950 AGE: 71 y.o. ADMISSION DATE: 07/12/2021 DAYS ADMITTED: LOS: 8 days Todays Date: 07/20/2021 Plan D/C [facility] via [facility] at 12pm . Interventions Support Info or Referral Discharge Planning [facility] updated by team that the pt is medically stable to d/c today. Pt has been accepted by [facility]. They have bed availabilit y today, however the pt would have to leave here by 12pm to be at their facility by 3pm. [facility] received call from Dennis at [facility] - no bed availability this week, possibly next week. [facility] contacted the pt's , Dorie. Discussed that [facility] could mike e the pt today. Dorie is in agreement with the pt discharging to [facility] if transport can be arranged. [facility] tasked OXYGEN EQUIPMENT AIDE to check on transportation to [facility]. Transportation secured 12pm with [facility] for $665. Family does not have the [employer] to cover transport. Management has agreed to pay for transportation for the patient. Team placed d/c orders. SW reached out to pt's and discussed d/c plan for 12pm via transpo rt. [facility] updated bedside nurse with d/c plan - nurse report [phone]. [facility] delivered transfer packet. [facility] faxed d/c orders to [facility] and notified them of transport being [...] Services Address Phone Fax Patient Preferred [facility] In[facility] Rehabilitation [address] [place] [address] [phone] Isamar Mart LMSW Voalte - [phone] DEPARTMENT MARINE ENGINEER * Miguelina Li - 07/20/2021 10:43 AM FIRE DEPARTMENT MARINE ENGINEER Patient Transportation Quote Request Received request from BRITANY Juarez to check transport quotes - 1 liter of 02 to [facility], [place]: [facility]: [phone]: $665 Available 12PM TODAY. SCHEDULED. [facility] [phone]: $670 [facility] 913- $ waiitng on quote Unavailable today [facility] [phone]: $416.98 Unavailable today [facility] [phone]: $ No availability. Miguelina Li Childcare Aide For further assistance please contact [facility] *[phone] DEPARTMENT MARINE ENGINEER * April Calderón RN - 07/19/2021 9:27 AM FIRE DEPARTMENT MARINE ENGINEER 0915: Per chart review, VSS with intermittent elevated B/P. O2 @ 1L/NC; IV zofra n will need to be switched to PO at discharge. Per Isamar CORONADO), team working on in creasing patient PO tolerance. Patient needs to work with OT; otherwise medical ly stable. 0927: Notified Isamar (FAITH) re: chart review. Admissions liaison to follow up per u pdates and bed availability. ELEN Wahl, RN Inpatient Rehab Admission Nurse (office: [phone] or voalte: [phone]) ELEN Levine, RN DEPARTMENT MARINE ENGINEER * Siria Renteria - 07/16/2021 1:07 PM FIRE DEPARTMENT MARINE ENGINEER Case Management Progress Note NAME:Chemo Jenkins DO B:1950 AGE: 71 y.o. ADMISSION DATE: 07/12/2021 DAYS ADMITTED: LOS: 4 days Todays Date: 07/16/2021 Plan [facility] updated [facility] P: [phone] on plans for pt to go IPR [...] for the patient. Stacey Renteria RN Nurse Music Video Director Available on Voalte [phone] *[phone] Office hours 8-4 M-F DEPARTMENT MARINE ENGINEER * April Calderón, ERNST - 07/16/2021 10:55 AM FIRE DEPARTMENT MARINE ENGINEER 1033: Notified by Isamar CORONADO) that the patient is anticipated to be ready for disc harge possibly Monday and would prefer to stay at 's IP rehab unit as patient' s first choice is unlikely to have a bed. Per , patient will have good family support at discharge. Will add for medical review and follow up re: bed availabi y. 1547: Per chart review, VSS; O2 @ 1L. Per Neuro note, Palliative team consulted for goal of care discussion. Otherwise appears medically stable. Admissions team to follow up Monday re: bed availability. 1550: Notified Isamar () re: chart review. Admissions team will plan to medicall y review and follow up Monday re: bed availability. ELEN Wahl, RN Inpatient Rehab Admission Nurse (office: [phone] or voalte: [phone]) ELEN Levine, RN DEPARTMENT MARINE ENGINEER * Isamar Mart, [facility] - 07/16/2021 10:33 AM FIRE DEPARTMENT MARINE ENGINEER Case Management Progress Note NAME:Chemo Jenkins DO B:1950 AGE: 71 y.o. ADMISSION DATE: 07/12/2021 DAYS ADMITTED: LOS: 4 days Todays Date: 07/16/2021 Plan D/C planning ongoing - IPR Pending: [facility] - likely no bed until late next week [facility] Interventions Support Info or Referral Discharge Planning [facility] updated by team. Potential d/c dates of 07-19-21. [facility] called [facility] - will likely not have a bed until late next week, if pt qualifies [facility] called the pt's spouse, Dorie. She reported that she would like to cons ider [facility] if they can accept him as she would have to drive to other facilitie s anyway and would like to stay in the area. [facility] notified [facility] of the referral. Medication Needs Financial Legal [...] selected for the patient. Isamar Mart LMSW Voalte - [phone] DEPARTMENT MARINE ENGINEER * Isamar Mart LMSW - 07/15/2021 11:23 AM FIRE DEPARTMENT MARINE ENGINEER Case Management Progress Note NAME:Chemo Jenkins DO B:1950 AGE: 71 y.o. ADMISSION DATE: 07/12/2021 DAYS ADMITTED: LOS: 3 days Todays Date: 07/15/2021 Plan D/C plan ongoing - Interventions Support Info or Referral Discharge Planning SW updated by team. Pt to be here a few more days. Will likely need rehab . SW met with pt and his at bedside. Discussed that rehab consult would be completed. Provided pt and his a list of IPR facilities to review. Pt and family w ould be interested in [facility] in [place], [place] as it is close to their home. SWCM reviewed EMR - Rehab Med recommends IPR. [facility] sent referral to [facility] per family request. Medication Needs Financial Legal [...] selected for the patient. Isamar Mart LMSW Voalte - [phone] DEPARTMENT MARINE ENGINEER * Isamar Mart LMSW - 07/13/2021 3:27 PM FIRE DEPARTMENT MARINE ENGINEER Case Management Progress Note NAME:Chemo Jenkins DO B:1950 AGE: 71 y.o. ADMISSION DATE: 07/12/2021 DAYS ADMITTED: LOS: 1 day Todays Date: 07/13/2021 Plan D/C planning ongoing Interventions Support Info or Referral Discharge Planning BRITANY attended team huddle. HEIKE 07-17-21 BRITANY reviewed EMR - PT/OT recs for inpatient at this time. FAITH met with pt and his spouse Dorie. [...] selected for the patient. Isamar Mart LMSW Voalte - [phone] DEPARTMENT MARINE ENGINEER * Siria Renteria - 07/13/2021 12:32 PM FIRE DEPARTMENT MARINE ENGINEER Case Management Admission Assessment NAME:Chemo Jenkins :1950 AGE: 71 y.o. ADMISSION DATE: 07/12/2021 DAYS ADMITTED: LOS: 1 day Todays Date: 07/13/2021 Source of Information: patient/ Plan Plan: Case Management Assessment NCM disussing dc planning and dispo for pt with new ostomy post dc Pt had Tu [facility]. P:[phone] Fax: [phone] F: [phone] -ACCEPTED Pt saw PCP on file in Jun 08 Pt owns no DME Pt denies having been to any sub acute facilities post hospital dc in past to transport home when medically stable Dc dispo ongoing Patient Address/Phone [address] [place] [address] (home) Emergency Contact Extended Emergency Contact [...] Current/Previous Services PCP Angelo Gordon, , Pharmacy [id number] - [place] - [address] [place] [phone] [facility] [address] [place] [address] Durable Medical Equipment Durable Medical Equipment at home: None Home Health Receiving home health: In the past Agency name[facility] Would patient use this agency again?: Yes Hemodialysis or Peritoneal Dialysis Undergoing hemodialysis or peritoneal dialysis: No Tube/Enteral Feeds Receive tube/enteral feeds: No Infusion Receive infusions: No Private Duty Private duty help used: No Home and Community Based Services Home and community based services: No [facility] Hospice: No Outpatient Therapy Custodial Facility/Shelter SNF: No NH: No Inpatient Rehab IPR: No Long-Term Acute Care Hospital LTACH: No Acute Hospital Stay Stacey Renteria RN Nurse Music Video Director Available on Voalte [phone] Office hours 8-4 M-F DEPARTMENT MARINE ENGINEER documented in this encounter Medications at Time [...] 06/08/2020 Miscellaneous Medical Urostomy 20 each Supply [facility] [place] supplies and accessories Dispense one month of [...] 8 hours as needed for Pain. Vit A,C,Y-Tyrk-Ustyop Take 2 0 (PRESERVISION AREDS) capsules by 14,320-226-200 mouth daily. rsmv-fm-lizd cap documented as of this encounter Ordered [...] in this encounter Progress Notes * Dena Cotton, ERNST - 07/20/2021 12:22 PM FIRE DEPARTMENT MARINE ENGINEER Patient discharged via medical transport to [facility] in rehab. PIV removed. Packet se nt with family. No questions at this time. DEPARTMENT MARINE ENGINEER * Judy Fitzgerald, OT - 07/20/2021 10:56 AM FIRE DEPARTMENT MARINE ENGINEER OCCUPATIONAL THERAPY PROGRESS NOTE Name: Chemo Jenkins [...] ce rebellar infarcts with a dominant left ROTARY HELPER infarct. Precautions: Falls (colstomy/urostomy) Pain / Complaints: Patient agrees to participate in therapy;Unable to rate Objective Psychosocial Status: Willing and Cooperative to Participate Persons Present: Spouse;Son Home Living Type of Home: House Home Layout: One Level;Stairs to Enter w/o Rails (2-3 LETY) Bathroom Shower / Tub: Walk-in Shower Bathroom Toilet: Standard Home Equipment: Walker Prior Function Level Of [facility] [facility]: Independent with ADLs and functional transfers;Independen t [...] Discharge Recommendations Recommendation: Inpatient setting Therapist: SUKUMAR Sweeney/Miguel [id number] Date: 07/20/2021 DEPARTMENT MARINE ENGINEER * Dena Cotton RN - 07/20/2021 10:33 AM FIRE DEPARTMENT MARINE ENGINEER 0850: During med pass and initial assessment, patient's and daughter kennedy amos patient was having some difficulty swallowing his food. Patient took pills o ev. 0930: Paged surg-onc team. Verbal to keep patient NPO and to place a speech ther apy consult for patient. Orders placed. Patient and family updated. 1118: Case management with Surg-onc texted and said patient will be DC to [facility] in [place] around 12 pm today. Patient and family updated. DEPARTMENT MARINE ENGINEER * Dena Cotton RN - 07/20/2021 7:45 AM FIRE DEPARTMENT MARINE ENGINEER Breakfast ordered for patient at this time. DEPARTMENT MARINE ENGINEER * Yas Avelar MD - 07/19/2021 9:34 PM FIRE DEPARTMENT MARINE ENGINEER PALLIATIVE CARE INPATIENT NOTE Name: Chemo Jenkins [...] pgr *[phone] Also on Voalte and [employer]MS[employer] DEPARTMENT MARINE ENGINEER * Ana Rosenberg RN - 07/19/2021 8:03 PM FIRE DEPARTMENT MARINE ENGINEER Report to Lisa DUKES . Transferring patient to [place] 1130. DEPARTMENT MARINE ENGINEER * Latoya Pastrana PT - 07/19/2021 3:14 PM FIRE DEPARTMENT MARINE ENGINEER PHYSICAL THERAPY PROGRESS NOTE Name: Chemo Jenkins [...] is needed Therapist: Latoya Pastrana PT, DPT, AM Date: 07/19/2021 DEPARTMENT MARINE ENGINEER * Yaritza La, OT - 07/19/2021 10:30 AM FIRE DEPARTMENT MARINE ENGINEER OCCUPATIONAL THERAPY PROGRESS NOTE Name: Chemo Jenkins [...] ce rebellar infarcts with a dominant left ROTARY HELPER infarct. Precautions: Falls (colstomy/urostomy) Pain / Complaints: Patient agrees to participate in therapy;Unable to rate Objective Psychosocial Status: Willing and Cooperative to Participate Persons Present: RehabTechnician;Daughter;Spouse Home Living Type of Home: House Home Layout: One Level;Stairs to Enter w/o Rails (2-3 LETY) Bathroom Shower / Tub: Walk-in Shower Bathroom Toilet: Standard Home Equipment: Walker Prior Function Level Of [facility]: Independent with ADLs and functional transfers;Independen t [...] time s without noticing. Activity Tolerance Endurance: 3/5 Tolerates 25-30 Minutes [...] presents with motor planning and sequencing deficits gela g grooming tasks. UE AROM Overall BUE [...] OT Discharge Recommendations Recommendation: Inpatient setting Therapist: Yaritza La OTR/Miguel [id number] Date: 07/19/2021 DEPARTMENT MARINE ENGINEER * Liliana Choe MD - 07/18/2021 10:03 AM FIRE DEPARTMENT MARINE ENGINEER Daily Progress Note Today's Date: 07/18/2021 Name: [...] Encephalopathy Moderate malnutrition (HCC) Acute ischemic left ROTARY HELPER stroke (HCC) Coagulopathy (HCC) Hypovolemic shock (HCC) NSTEMI, initial episode of care ([facility]) Plan: S/p open loop colostomy- ERAS, regular [...] limited regardless of the ALIYA results. Cardiol barryy agrees and will hold off on ALIYA for now. Palliative care consulted for goals of care. Lines/Drains- urostomy/colostomy PPX- SCDs, ambulating when hemodynamically safe with PT/OT, chemoppx Continue inpatient management, will need rehab on discharge Liliana Choe MD [id number] Subjective: ZOILA. Denies pain. No n/v. Tolerating [...] Subcutaneous Fat: No Muscle Wasting: Yes Moderate [place], Clavicle, Deltoid (did not assess lower bod y) Edema: No Malnutrition Interventions: high-kcal high-protein shakes DEPARTMENT MARINE ENGINEER Associated attestation - Angelo Danielle MD - 07/19/2021 10:44 AM FIRE DEPARTMENT MARINE ENGINEER ATTESTATION I personally performed the campo portions of the E/M visit, discussed case with re sident and concur with resident documentation of history, physical exam, assessm ent, and treatment plan unless otherwise noted. Staff name: Angelo Danielle MD Date: 07/19/2021 * Benton Chopra, PT - 07/18/2021 9:40 AM FIRE DEPARTMENT MARINE ENGINEER PHYSICAL THERAPY PROGRESS NOTE Name: Chemo Jenkins [...] Therapist: Benton Chopra PT, DPT Date: 07/18/2021 DEPARTMENT MARINE ENGINEER * Nai Cheney RN - 07/17/2021 2:40 PM FIRE DEPARTMENT MARINE ENGINEER Patient has had increased nausea and bilious emesis after administration of PRN antiemetic. Patient has had sips of water and boost so far this shift. Primary t eam text paged. DEPARTMENT MARINE ENGINEER * Mar William MD - 07/17/2021 1:48 PM FIRE DEPARTMENT MARINE ENGINEER Daily Progress Note Today's Date: 07/17/2021 Name: [...] Encephalopathy Moderate malnutrition (HCC) Acute ischemic left ROTARY HELPER stroke (HCC) Coagulopathy (HCC) Hypovolemic shock (HCC) NSTEMI, initial episode of care ([facility]) Plan: S/p open loop colostomy- ERAS, full [...] be limited regardless of the ALIYA results. Cardiomiguel bhat agrees and will hold off on ALIYA for now. Palliative care consulted for goals of care. Lines/Drains- urostomy/colostomy PPX- SCDs, ambulating when hemodynamically safe with PT/OT, chemoppx Continue inpatient management, will need rehab on discharge Mar William MD [id number] Subjective: ZOILA. Denies pain. No n/v. Tolerating [...] Subcutaneous Fat: No Muscle Wasting: Yes Moderate [place], Clavicle, Deltoid (did not assess lower bod y) Edema: No Malnutrition Interventions: high-kcal high-protein shakes DEPARTMENT MARINE ENGINEER Associated attestation - Angelo Danielle MD - 07/19/2021 10:46 AM FIRE DEPARTMENT MARINE ENGINEER ATTESTATION I personally performed the campo portions of the E/M visit, discussed case with re sident and concur with resident documentation of history, physical exam, assessm ent, and treatment plan unless otherwise noted. Staff name: Angelo Danielle MD Date: 07/19/2021 * Vivi Stoddard MD - 07/16/2021 4:34 PM FIRE DEPARTMENT MARINE ENGINEER Staff Cardiology Progress Note Admission Date: 07/12/2021 Today's Date: 07/16/2021 LOS: 4 days Assessment & Plan Chemo Jenkins is a 71 y.o. patient with the following problems: Principal Problem: Colon obstruction (HCC) Active Problems: ITA (acute kidney injury) (HCC) Acute ischemic stroke (HCC) Acute right hemiparesis (HCC) Homonymous hemianopia, right Hypovolemia Encephalopathy Moderate malnutrition (HCC) Acute ischemic left ROTARY HELPER stroke (HCC) Coagulopathy (HCC) Hypovolemic shock (HCC) [...] and cerebellar infarcts with a large left ROTARY HELPER territory inf arct.MRI 07/13 showed multifocal cerebral and cerebellar infarcts with a domina nt large left ROTARY HELPER territory infarct. NSTEMI, type II suspected in [...] and cerebellar infarcts and a large left ROTARY HELPER territory infarct which most likely represent combination [...] possible hospice therapy with his metastatic d boogie. I encouraged palliative care consult. We will [...] rhythym, no atrial fibrillation Vivi Stoddard MD DEPARTMENT MARINE ENGINEER * Yaritza La, OT - 07/16/2021 3:21 PM FIRE DEPARTMENT MARINE ENGINEER OCCUPATIONAL THERAPY NOTE Name: Chemo Jenkins : 1950 Age: 71 y.o. Admission Date: 07/12/2021 LOS: 4 days Attempted to see patient at scheduled time with resource technician. Patient and family c urrently meeting with Palliative team. OT will continue to follow. Therapist: SUKUMAR Randall/Miguel [id number] Date: 07/16/2021 DEPARTMENT MARINE ENGINEER * Benton Chopra, PT - 07/16/2021 1:43 PM FIRE DEPARTMENT MARINE ENGINEER PHYSICAL THERAPY PROGRESS NOTE Name: hCemo Jenkins : 1950 Age: 71 y.o. Admission [...] L prefere nce and R side inattention Bed Mobility/Transfer [...] Therapist: Benton Chopra PT, DPT Date: 07/16/2021 DEPARTMENT MARINE ENGINEER * Elvie Ratliff MD - 07/16/2021 11:52 AM FIRE DEPARTMENT MARINE ENGINEER Neurology Progress Note Chemo Wheeler [facility] Admission Date: 07/12/2021 LOS: 4 days Assessment/Plan: Principal Problem: Colon obstruction (HCC) Active Problems: ITA (acute kidney injury) (HCC) Acute ischemic stroke (HCC) Acute right hemiparesis (HCC) Homonymous hemianopia, right Hypovolemia Encephalopathy Moderate malnutrition (HCC) Acute ischemic left ROTARY HELPER stroke (HCC) Encephalopathy Pt seen and examined. Family members at bedside. Chart reviewed. relevant neuro images( MRI/MRA 07/13) and labs are reviewed. 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 Exam this am: Pt is awake, alert. Does not know his age. Poor short term memory. Unable to rec all I just had conversation with him. Family reported that pt was paranoid from time to time. assessment and plan; ROTARY HELPER and other territory stroke: d/w pt family, ALIYA will not change overall manag ement pic. Will not pursue aggressive work up. Metastatic urothelial carcinoma: on palliative tumor management. Confusion and poor short term memory: multiple factorial. Manager Film stroke involving h is left temporal lobe contribute his poor short term memory and confusion signif icantly. In consideration of his over all clinical pic, recommended palliative team consu lt for goal of care discussion. Cont asa for now. Stroke respond team will sign off. Please call us with questions. Elvie Ratliff MD Vascular neurologist On [employer]. DEPARTMENT MARINE ENGINEER * Bakari Stone, ADRIANA - 07/16/2021 10:25 AM FIRE DEPARTMENT MARINE ENGINEER Pharmacy Note: Patients Own Med The following medications have been identified by pharmacy and placed in the [facility] medication room for storage: Netarsudil ( Rhopressa) 0.02% soln. rx [id number] Lot # [id number] exp 08/2023. The patient may use their own supply of these medications during this admission. All doses should be administered and documented per hospital policy. DEPARTMENT MARINE ENGINEER * Scott Garcia MD - 07/16/2021 6:32 AM FIRE DEPARTMENT MARINE ENGINEER Daily Progress Note Today's Date: 07/16/2021 Name: [...] Encephalopathy Moderate malnutrition (HCC) Acute ischemic left ROTARY HELPER stroke (HCC) Coagulopathy ([facility]) Hypovolemic shock ([facility]) NSTEMI, initial episode of care ([facility]) Plan: S/p open loop colostomy- ERAS, full [...] di scuss this with neurology staff and TUNNEL KILN REPAIRER. Lines/Drains- urostomy/colostomy PPX- SCDs, ambulating when hemodynamically safe with PT/OT, chemoppx Continue inpatient management, will need rehab on discharge Scott Garcia MD [id number] Subjective: No acute events, normotensive, does not [...] Subcutaneous Fat: No Muscle Wasting: Yes Moderate [place], Clavicle, Deltoid (did not assess lower bod y) Edema: No Malnutrition Interventions: high-kcal high-protein shakes DEPARTMENT MARINE ENGINEER * Laura Damon RN - 07/15/2021 3:57 PM FIRE DEPARTMENT MARINE ENGINEER 1535: Surg-onc team notified of bleeding around site of colostomy. Per team, tod t is expected. No new orders at this time. Colostomy bag changed. DEPARTMENT MARINE ENGINEER * Elvie Ratliff MD - 07/15/2021 3:14 PM FIRE DEPARTMENT MARINE ENGINEER Images from the original note were not [...] cerebellar infa rcts with a large left ROTARY HELPER territory infarct. At that time the stroke team was a ctivated on 07/13 the NIHSS was 7 for disorientation, R side drift, R homonymous hemianopia and L side extinction deficit. Elevated Creatinine prevented us from getting CTA head and neck. 07/13 MRI head: Revealed multifocal cerebral and cerebellar infarcts with a large left ROTARY HELPER territory infarct. This may represent a combination [...] language) 2=neither correct 2 1c. 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, kosher butcher and release non-paretic hand (other 1 step [...] cerebellar infarcts with a dominant large left ROTARY HELPER territory infarct. This appears represent a combination [...] MRA head: 1. Occlusion of the left ROTARY HELPER at the level of the mid to distal P2 segment (corre sponding to the large left ROTARY HELPER territory infarct). 2. Otherwise patent major intracranial arteries without focal stenosis. Otf Vines APRN-ANN Vascular Neurology [id number] or Voalte DEPARTMENT MARINE ENGINEER * Vivi Stoddard MD - 07/15/2021 2:52 PM FIRE DEPARTMENT MARINE ENGINEER CARDIOLOGY CONSULT PROGRESS NOTE Patient Name: Chemo [...] and cerebellar infarcts and a large left ROTARY HELPER te rritory infarct which most likely represent [...] urothelial carcinoma Loc Trevino, Fellow, Cardiology Pager: [phone] I personally took the history, examined the patient and formulated the treatment plan. I discussed the above with the fellow. DEPARTMENT MARINE ENGINEER * Yaritza La OT - 07/15/2021 2:50 PM FIRE DEPARTMENT MARINE ENGINEER OCCUPATIONAL THERAPY PROGRESS NOTE Name: Chemo Jenkins [...] ce rebellar infarcts with a dominant left ROTARY HELPER infarct. Precautions: Falls (colstomy/urostomy) Pain / Complaints: Patient agrees to participate in therapy;Unable to rate Pain Location: Abdomen Objective Psychosocial Status: Willing and Cooperative to Participate Persons Present: RehabTechnician;Spouse;Daughter Home Living Type of Home: House Home Layout: One Level;Stairs to Enter w/o Rails (2-3 LETY) Bathroom Shower / Tub: Walk-in Shower Bathroom Toilet: Standard Home Equipment: Walker Prior Function Level Of [place]: Independent with ADLs and functional transfers;Independen t [...] Inpatient setting;Recommend rehab medicine consult Therapist: SUKUMAR Randall/Miguel [id number] Date: 07/15/2021 DEPARTMENT MARINE ENGINEER * Kely Hernandez, RD - 07/15/2021 1:23 PM FIRE DEPARTMENT MARINE ENGINEER CLINICAL NUTRITION Clinical Nutrition Follow-Up Assessment Name: Chemo Jenkins : 1950 Age: 71 y.o. Admission Date: 07/12/2021 LOS: 3 days Recommendation: ADAT to goal regular diet. Please encourage high-kcal high-protein unit shakes: High Protein Shake Ideas ? Vanilla 1 vanilla Atlantic Instant Breakfast + 2 vanilla ice creams + 1 vanil la Boost ? Very Chocolate 1 chocolate Atlantic Instant Breakfast + 2 chocolate ice cream s + 1 chocolate Boost ? Chocolate Raspberry 3 pkg Beneprotein + 1 raspberry sherbet + 1 chocolate Dipesh t ? Chocolate Peanut Butter 2 pkg Beneprotein + 1 chocolate milk + 2 chocolate ic e creams + 2 pkg peanut butter ? Mesa Shake 3 pkg Beneprotein + 1 vanilla ice cream + 1 peach Boost Breeze ? Grandin Socrates 3 pkg Beneprotein + 2 orange sherbet + 1 vanilla Boost ? Chocolate Banana 3 pkg Beneprotein+ 1 chocolate milk + 2 chocolate ice creams + 1/2 banana ? Vanilla Peanut Butter Banana 3 pkg Beneprotein + 2 vanilla ice creams + 1 pkg peanut butter + 1/2 banana + 1 vanilla Boost ? [place] 1 strawberry Atlantic Instant Breakfast + 2 vanilla ice creams + 1 strawberry Boost ? Chocolate Peanut Butter Banana 3 pkg Beneprotein + 2 chocolate ice creams + 1 pkg peanut butter + 1/2 banana + 1 chocolate Boost ? Lemon Cream 2 pkg Beneprotein + 2 Indian ice lemon (partially melted) + 1 van illa ice cream + 1 whole milk ? Gonzalez Slush 1 pkg Prosource + 1 pkg Beneprotein + 2 Indian ice gonzalez (parti ally melted) Comments: Mr. Jenkins is a 71yoM with PMH notable for metastatic urothelial carcinoma s/p r adical cystectomy/prostatectomy with ileal conduit (06/04/20) now with distal ob struction s/p loop colostomy (07/12). Followed up with pt and family members at [facility] today. Advanced to clear liquids 07/13 PM [...] Current Oral Intake: Inadequate Estimated Calorie Needs: 3660-1992 (30-35 kcal/kg) Estimated Protein Needs: 97 (1.5 g/kg) Malnutrition Assessment: Malnutrition present on admission ICD-10 code E44: Chronic illness/Moderate non-severe malnutrition Mild loss of muscle mass, Energy intake: < 75% of estimated energy requirement for 1 month or more Malnutrition Interventions: high-kcal high-protein shakes Nutrition Focused Physical Assessment: Loss of Subcutaneous Fat: No Muscle Wasting: Yes; Severity: Moderate; Location: [place], Clavicle, Deltoid (di d not assess lower [...] , RDN, LD, CNSC Available via Voalte [id number] DEPARTMENT MARINE ENGINEER * Scott Garcia MD - 07/15/2021 1:16 PM FIRE DEPARTMENT MARINE ENGINEER Daily Progress Note Today's Date: 07/15/2021 Name: Chemo Jenkins Admission Date: 07/12/2021 (LOS: 3 days) Assessment: 71M with metastatic bladder cancer s/p cystectomy and ileal conduit with peritoneal mets and distal obstruction s/p open loop sigmoid colostomy (2 4) Principal Problem: Colon obstruction (HCC) Active [...] Transition to med/surg status Scott Garcia MD [id number] Subjective: No acute events, normotensive, does not [...] 1354 Upper Left Quadrant 80 Edema: No DEPARTMENT MARINE ENGINEER * Latoya Pastrana, PT - 07/15/2021 12:00 PM FIRE DEPARTMENT MARINE ENGINEER PHYSICAL THERAPY PROGRESS NOTE Name: Chemo Jenkins [...] is needed Therapist: Latoya Pastrana PT, DPT, AM Date: 07/15/2021 DEPARTMENT MARINE ENGINEER * Marisol Sky RN - 07/15/2021 10:00 AM FIRE DEPARTMENT MARINE ENGINEER Wound Ostomy Note NAME:Chemo Jenkins :1950 AGE: [...] this time. Pt has been enrolled in [employer]. Ostomy Care: Suggested Pouching Supplies: Urostomy - 2 piece 42453, 89434 Colostomy - 1 piece Jhoana colostomy pouch 26049 or 8139 1. Change pouch with any sign of leaking 2. Clean skin with water only - no soap or wipes 3. If skin is broken down surrounding stoma, sprinkle stoma powder and wipe away the excess. 4. [place] no sting skin prep on powdered skin and let dry completely 5. Cut new pouch leaving /8"-1/4" of skin showing between the stoma and pouch 6. Warm new pouch in palm of hands 7. Ensure skin is dry and apply new pouch 8. Lay warm hand over pouch once it's applied Marisol Sky RN, BSN, ON Wound Ostomy Nursing Consult Service Available via ASSIA or [employer] [facility] [phone] Office number [phone] Contact Team "Jukebox Coin Collector" after 4:00pm -/weekends/holidays DEPARTMENT MARINE ENGINEER * Myra Heredia RN - 07/14/2021 7:00 PM FIRE DEPARTMENT MARINE ENGINEER I have reviewed the notes, assessments, and/or procedures performed by Murali pacheco, and concur with her/his documentation unless otherwise noted. DEPARTMENT MARINE ENGINEER * Scott Garcia MD - 07/14/2021 4:18 PM FIRE DEPARTMENT MARINE ENGINEER Daily Progress Note Today's Date: 07/14/2021 Name: [...] 1354 Upper Left Quadrant 80 Edema: No DEPARTMENT MARINE ENGINEER Associated attestation - Maurice Cao DO - 07/15/2021 10:32 AM FIRE DEPARTMENT MARINE ENGINEER ATTESTATION I personally performed the acmpo portions of the E/M visit, discussed case with re sident and concur with resident documentation of history, physical exam, assessm ent, and treatment plan unless otherwise noted. Staff name: Maurice Cao DO Date: 07/15/2021 Ct shows embolic stroke Will ask stroke team to eval Cannot anticoagulate with recent surgery and bleeding * Vivi Stoddard MD - 07/14/2021 3:29 PM FIRE DEPARTMENT MARINE ENGINEER CARDIOLOGY CONSULT PROGRESS NOTE Patient Name: Chemo [...] and cerebellar infarcts and a large left ROTARY HELPER te rritory infarct which most likely represent [...] urothelial carcinoma Loc Trevino, Fellow, Cardiology Pager: [phone] I personally took the history, examined the patient and formulated the treatment plan. I discussed the above with the fellow. Rec outpatient reg thall. Carotid duplex in hospital and a 30 day event monitor at discharge. Will sign off, ple ase call with questions. DEPARTMENT MARINE ENGINEER * Yaritza La, OT - 07/14/2021 3:00 PM FIRE DEPARTMENT MARINE ENGINEER OCCUPATIONAL THERAPY PROGRESS NOTE Name: Chemo Jenkins [...] ce rebellar infarcts with a dominant left ROTARY HELPER infarct. Precautions: Falls (colstomy/urostomy) Pain / Complaints: Patient agrees to participate in therapy;Unable to rate Pain Location: Abdomen Objective Psychosocial Status: Willing and Cooperative to Participate Persons Present: RehabTechnician;Spouse;Son Home Living Type of Home: House Home Layout: One Level;Stairs to Enter w/o Rails (2-3 LETY) Bathroom Shower / Tub: Walk-in Shower Bathroom Toilet: Standard Home Equipment: Walker Prior Function Level Of [place]: Independent with ADLs and functional transfers;Independen t [...] Inpatient setting;Recommend rehab medicine consult Therapist: Yaritza PATINO/Miguel [id number] Date: 07/14/2021 DEPARTMENT MARINE ENGINEER * Baylee Sherman M.Div, [facility] - 07/14/2021 12:10 PM FIRE DEPARTMENT MARINE ENGINEER Tractor Technician Note: Admit Date: 07/12/2021 I received an update on patient from his RN. Tractor Technician met with patient and his family (spouse Dorie & son Ector) per request for a chemistry technical officer visit. I introduced spiritual care and offered supportive presence. Pt was not sure what had happened and notes he couldn't remember the surgery. Spouse and I offered words of support to pt. I confirmed that pt is Latter-Day. Pt asked me to pray for him. Family and I gath ered around pt and we prayed. Pt was tearful after the prayer. We continued to offer support noting that pt will be well cared for while at [facility]. Renewable Energy Trader will remain available as neede. The spiritual care team is available as needed, 09/01, through the pace [employer] ([phone]). For a response within 24 hours, please submit an order in O2 fo r a chemistry technical officer consult. Date/Time: User: 07/14/2021 12:10 PM Baylee Sherman M.Div, [facility] PCU 3 PCU DEPARTMENT MARINE ENGINEER * Otf Vines, TUNNEL KILN REPAIRER-PORT SURVEYOR - 07/14/2021 8:54 AM FIRE DEPARTMENT MARINE ENGINEER Images from the original note were not [...] cerebellar infa rcts with a large left ROTARY HELPER territory infarct. At that time the stroke team was a ctivated on 07/13 the NIHSS was 7 for disorientation, R side drift, R homonymous hemianopia and L side extinction deficit. Elevated Creatinine prevented us from getting CTA head and neck. 07/13 MRI head: Revealed multifocal cerebral and cerebellar infarcts with a large left ROTARY HELPER territory infarct. This may represent a combination [...] language) 2=neither correct 2 1c. 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, kosher butcher and release non-paretic hand (other 1 step [...] cerebellar infarcts with a dominant large left ROTARY HELPER territory infarct. This appears represent a combinatio [...] MRA head: 1. Occlusion of the left ROTARY HELPER at the level of the mid to distal P2 segment (corre sponding to the large left ROTARY HELPER territory infarct). 2. Otherwise patent major intracranial arteries without focal stenosis. Otf Vines APRN-PORT SURVEYOR Vascular Neurology [id number] or Voalte DEPARTMENT MARINE ENGINEER Associated attestation - Angela Lewis MD - 07/14/2021 12:08 PM FIRE DEPARTMENT MARINE ENGINEER ATTESTATION I personally interviewed and examined the patient. I have reviewed the history, physical, impression and plan outlined by the Nurse Practitioner. Exam unchanged from yesterday, although he is more alert and interactive. He has right homonomous hemianopia, drift RUE and RLE. -MRI/MRA reviewed: MRI shows multifocal cerebral and cerebellar infarcts with a dominant left ROTARY HELPER infarct. Pattern looks both embolic and watershed. Gradient susceptibility in right caudate, left parietal, occipital lobes consistent with petechial hemorrhage. MRA iwht occluded left ROTARY HELPER at P2 segment. -Echo: technically difficult study, [...] Latoya Pastrana, PT - 07/14/2021 8:20 AM FIRE DEPARTMENT MARINE ENGINEER PHYSICAL THERAPY NOTE Name: Chemo Jenkins : [...] Latoya Pastrana PT, DPT, MHAM Date: 07/14/2021 DEPARTMENT MARINE ENGINEER * Dwaine Lanier RT - 07/13/2021 10:21 PM FIRE DEPARTMENT MARINE ENGINEER RT Adult Assessment Note NAME:Chemo Jenkins :1950 [...] clear and diminished Respiratory Effort: non labored DEPARTMENT MARINE ENGINEER * Lilian Haque RN - 07/13/2021 9:52 PM FIRE DEPARTMENT MARINE ENGINEER 2100: Dr. Shepherd notified of hypotension. BP sustained 80/30. 500cc bolus of LR given. Labs drawn. 2144: BP marked improvement. Pt to MRI with resource nurse x2. 2300: Pt returned to floor with RNx2, no acute events while in MRI, VSS. 0030: Dr. Shepherd notified of persistent hypotension. 1u PRBC ordered. 0215: 1u PRBC completed without any adverse events. BP improved DEPARTMENT MARINE ENGINEER * Jenifer Flores RN - 07/13/2021 9:44 PM FIRE DEPARTMENT MARINE ENGINEER Patient taken to MRI via bed on monitor with 2 Rn's. Patient monitored by Kiya leavitt RN during scan. DEPARTMENT MARINE ENGINEER * Keanu Shepherd DO - 07/13/2021 9:26 PM FIRE DEPARTMENT MARINE ENGINEER Brief Surgical Oncology Note Discussed elevated troponin with cardiology. Will continue to trend. No hep gtt at this time especially in the setting of an acute CVA. Will continue with ASA 8 1 mg. Atorvastatin added per cardiology recommendations Keanu Shepherd DO [id number] DEPARTMENT MARINE ENGINEER * Lavern Lucas RN - 07/13/2021 12:59 PM FIRE DEPARTMENT MARINE ENGINEER 0800: initial assessment, no acute changes from [...] assess the patient at the bedside. 1830: notified of increasing size of colostomy DEPARTMENT MARINE ENGINEER * Latoya Pastrana, PT - 07/13/2021 12:12 PM FIRE DEPARTMENT MARINE ENGINEER PHYSICAL THERAPY ASSESSMENT Name: Chemo Jenkins : [...] Strength Overall Strength: Generalized Weakness (R side kosher butcher weaker than the L) Posture/Neurological Posture/Neuro Comments: [...] to home Therapist Latoya Pastrana PT, DPT, AM Date 07/13/2021 DEPARTMENT MARINE ENGINEER * Yaritza La, OT - 07/13/2021 10:33 AM FIRE DEPARTMENT MARINE ENGINEER OCCUPATIONAL THERAPY ASSESSMENT NOTE Name: Chemo Jenkins : 1950 Age: [...] Home Equipment: Walker Prior Function Level Of [place]: Independent with ADLs and functional transfers;Independen t [...] Discharge Recommendations Recommendation: Inpatient setting Therapist: SUKUMAR Randall/Miguel [id number] Date: 07/13/2021 DEPARTMENT MARINE ENGINEER * Indu Garcia MD - 07/13/2021 8:33 AM FIRE DEPARTMENT MARINE ENGINEER Anesthesia Follow-Up Evaluation: Post-Procedure Day One Name: [...] acceptable and room air Cardiovascular Status:acceptable Regional/Neuroaxial: DEPARTMENT MARINE ENGINEER * Scott Garcia MD - 07/13/2021 7:07 AM FIRE DEPARTMENT MARINE ENGINEER Daily Progress Note Today's Date: 07/13/2021 Name: Chemo Jenkins Admission Date: 07/12/2021 (LOS: 1 day) Assessment: 71M with metastatic bladder cancer s/p cystectomy and ileal conduit with peritoneal mets and distal obstruction s/p open loop sigmoid colostomy (1/2 4) Principal Problem: Colon obstruction (HCC) Plan: [...] with urostomy bag, abdomen soft, nontender, nondistended, [place] VF Elevated cardiac enzymes- cardiology consult, no [...] Colostomy 07/12/21 1354 Upper Left Quadrant 80 DEPARTMENT MARINE ENGINEER Associated attestation - Maurice CaoDO - 07/15/2021 10:32 AM FIRE DEPARTMENT MARINE ENGINEER ATTESTATION I personally performed the campo portions of the E/M visit, discussed case with re sident and concur with resident documentation of history, physical exam, assessm ent, and treatment plan unless otherwise noted. Staff name: Maurice Nñuez DO Nash Date: 07/15/2021 Bleeding overnight Given units * Lilian Haque RN - 07/13/2021 1:27 AM FIRE DEPARTMENT MARINE ENGINEER 2241: pt arrived on unit. LR infusing. Orders [...] lethargic overnight. Disoriented x3-4. Sleeping between cares DEPARTMENT MARINE ENGINEER * Mae Mishra RN - 07/12/2021 10:32 PM FIRE DEPARTMENT MARINE ENGINEER Rapid Response called to transfer pt to SICU per Dr Shepherd .BP's remain to range 80-88/49-56. HR mid 70's-lower 80's. Pt just completed 1 unit of PRBC's. DEPARTMENT MARINE ENGINEER * Mae Mishra RN - 07/12/2021 8:35 PM FIRE DEPARTMENT MARINE ENGINEER Pt's BP at 2023 89/54, HR 80, RR 14, O2 sat [address] Bradford paged and upd ate on vitals. Pt lethargic, difficult to arouse. Stated that she would be up to see pt. At this time, BP 81/50. Rapid response was called. Dr Bradford at [facility]. DEPARTMENT MARINE ENGINEER * Leny Bradford MD - 07/12/2021 8:30 PM FIRE DEPARTMENT MARINE ENGINEER Brief Surgery Note: Patient seen and examined [...] Leny Bradford MD General Surgery Resident, PGY1 DEPARTMENT MARINE ENGINEER * Tamika Ramires RN - 07/12/2021 6:40 PM FIRE DEPARTMENT MARINE ENGINEER Pt colostomy bag is found to be [...] at t his time, rates pain 0/10. DEPARTMENT MARINE ENGINEER * Mike Avila RN - 07/12/2021 12:05 PM FIRE DEPARTMENT MARINE ENGINEER Wound Ostomy Note NAME:Chemo Jenkins :1950 AGE: 71 y.o. ADMISSION DATE: 07/12/2021 DAYS ADMITTED: LOS: 0 days Reason for Consult/Visit: ostomy marking Assessment/Plan: Active Problems: * No active hospital problems. * Planned Procedure: Colostomy Surgeon: Nash Abdomen remains smooth in supine and seated positions. Sites x 1 marking with " * " in LUQ quadrant. Urostomy at RUQ Stoma red moist protrudes. [place] two piece flat #[id number] on no w. Our service will plan to follow up with patient post operatively and implement o stomy education if warranted. Brief discussion with patient about stoma and futu re inpatient stoma/pouch care. All questions from patient answered at this time. Will continue to follow. Mike Avila RN, BSN Wound/ Ostomy Nursing Consult Service Office: [phone] Pager: [phone] Wound/ Ostomy Team pager (after hours/ weekends): [phone] DEPARTMENT MARINE ENGINEER documented in this encounter H&P Notes * Scott Garcia MD - 07/12/2021 12:12 PM FIRE DEPARTMENT MARINE ENGINEER History and Physical Update Note Allergies: Tegaderm, Erythromycin, and Readyprep chg [chlorhexidine gluconate] Lab/Radiology/Other Diagnostic Tests: No pertinent labs Point of Care Testing: (Last 24 hours): Nutrition: No Dietitian Consult Wound: No Wound Consult Only change to plan is operative exposure. Will proceed with exploratory laparot khoa, colostomy creation, possible bowel resection Scott Garcia MD Pager [phone] DEPARTMENT MARINE ENGINEER * Laina Cheney APRN-PORT SURVEYOR - 07/09/2021 9:30 AM FIRE DEPARTMENT MARINE ENGINEER Images from the original note were not [...] history is an appendectomy. They live in [facility]. They have a daughter coming [...] propria (detrusor muscle) (based on prior biopsy [id number]) Regional Lymph Nodes (pN) pN0: No lymph [...] 06/04/2020 Performed by Keith Trinidad MD at [facility] OR PERCUTANEOUS NEPHROSTOLITHOTOMY/ PYELOSTOLITHOTOMY - 2 CM OR LESS Right 11/12 Performed by Tristan Bowman MD at [facility] OR URETEROSCOPY WITH URETERAL STENT EXCHANGE Right 02/15/2021 Performed by Tristan Bowman MD at [facility] OR PERCUTANEOUS NEPHROSTOLITHOTOMY/ PYELOSTOLITHOTOMY - GREATER THAN 2 CM Left 04/29/2021 Performed by Kvng Rm MD at [facility] OR PERCUTANEOUS PLACEMENT NEPHROSTOMY CATHETER WITH NEPHROSTOGRAM/ URETEROGRAM/ IMAGE-GUIDANCE Left 04/29/2021 Performed by Kvng Rm MD at [facility] OR CYSTOURETHROSCOPY WITH URETEROSCOPY AND/ OR PYELOSCOPY - WITH REMOVAL/ MANIP ULATION CALCULUS Left 04/29/2021 Performed by Kvng Rm MD at [facility] OR No family history on file. [...] mg of acetaminophen in 24 hours. (Patient taki ng differently: Take 500-1,000 mg by mouth [...] 1 DROP INTO RIGHT EYE AT BEDTIME [facility] [place] Urostomy supplies and accessories [...] by mouth daily a s needed. Vit A,C,K-Mixp-Bzxgxo (PRESERVISION AREDS) 14,320-226-200 skid-ih-lvyq cap Take 2 capsules by mouth daily. [...] Maurice Díaz aft DO. Laina Cheney MSN, TUNNEL KILN REPAIRER, [facility]- Advanced Practice Provider Colon and Rectal Surgery Surgical Oncology [place] for Dr. Cao, Dr. Morel and Dr. Danielle Pager: [phone] Available via Voalte and [employer] DEPARTMENT MARINE ENGINEER documented in this encounter Procedure Notes * Simba Gonzalez MD - 07/12/2021 11:14 PM FIRE DEPARTMENT MARINE ENGINEER Brief Procedure Note Date: 07/12/20 Procedure: radial arterial line insertion Primary Surgeon: Dr. Cao Tire And Lube Technician: Simba Gonzalez MD Indications: Need for hemodynamic monitoring and/or frequent arterial blood elieser ws Description: The patient's left wrist and hand [...] of Emergency Medicine Voalte preferred | Callback [phone] DEPARTMENT MARINE ENGINEER * Scott Garcia MD - 07/12/2021 2:10 PM FIRE DEPARTMENT MARINE ENGINEER Brief Operative Note Name: Chemo Jenkins is [...] PACU - stable Scott Garcia MD Pager [phone] DEPARTMENT MARINE ENGINEER documented in this encounter Consult Notes * Anju Mcgowan MD - 07/16/2021 3:26 PM FIRE DEPARTMENT MARINE ENGINEER Associated Order(s): CONSULT ADULT PALLIATIVE CARE PROVIDER [...] completed and found multifocal acute to subac [place] appearing bilateral cerebral and cerebellar infarcts with a large left ROTARY HELPER t erritory infarct. MRI 07/13 showed multifocal cerebral and cerebellar infarcts wi th a dominant large left ROTARY HELPER territory infarct. He sees Dr Louie as his oncologist and was discussing treatment with chemotherkody py just prior to his admission. Advance [...] would be highly likely to in the ar dst of the trauma of a code- [...] changes over the past couple of m [facility] since the proctitis which turned out to [...] nixon ffered multiple strokes including a sizable ROTARY HELPER stroke. Chemo denies any curren t symptoms [...] 06/04/2020 Performed by Keith Trinidad MD at [facility] OR PERCUTANEOUS NEPHROSTOLITHOTOMY/ PYELOSTOLITHOTOMY - 2 CM OR LESS Right 11/12 Performed by Tristan Bowman MD at [facility] OR URETEROSCOPY WITH URETERAL STENT EXCHANGE Right 02/15/2021 Performed by Tristan Bowman MD at [facility] OR PERCUTANEOUS NEPHROSTOLITHOTOMY/ PYELOSTOLITHOTOMY - GREATER THAN 2 CM Left 04/29/2021 Performed by Kvng Rm MD at [facility] OR PERCUTANEOUS PLACEMENT NEPHROSTOMY CATHETER WITH NEPHROSTOGRAM/ URETEROGRAM/ IMAGE-GUIDANCE Left 04/29/2021 Performed by Kvng Rm MD at [facility] OR CYSTOURETHROSCOPY WITH URETEROSCOPY AND/ OR PYELOSCOPY - WITH REMOVAL/ MANIP ULATION CALCULUS Left 04/29/2021 Performed by Kvng Rm MD at [facility] OR EXPLORATORY LAPAROTOMY, DIVERTING LOOP COLOSTOMY N/A 07/12/2021 Performed by Maurice Cao DO at [facility] OR Social History Tobacco Use Smoking status: Never Smoker Smokeless tobacco: Never Used Vaping Use Vaping Use: Never used Substance Use Topics Alcohol use: Not Currently Drug use: Not Currently Social History Social History Narrative Not on file 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 No [...] cerebellar infarcts with a dominant large left ROTARY HELPER territory infarct. This appears represent a combination [...] MRA head: 1. Occlusion of the left ROTARY HELPER at the level of the mid to distal P2 segment (corresponding to the large left ROTARY HELPER territory infarct). 2. Otherwise patent major intracranial [...] care and treatment options 70 minutes >50% guidance counselor and coordination of care Staff name: Anju Mcgowan MD Date: 07/16/2021 C Danyel Guerin MD - 07/15/2021 9:45 AM FIRE DEPARTMENT MARINE ENGINEER Associated Order(s): CONSULT REHABILITATION MEDICINE PHYSICIAN Physical Medicine & Rehabilitation Consult Service Date of Service: 07/15/2021 Chemo Jenkins is a 71 y.o.. : 1950 Financial Class: Payor: MEDICARE / Plan: MEDICARE PART A AND B / Product Type: M edicare / Date of Admission: 07/12/2021 Referring Physician: Maurice Cao DO Reason for Consult: evaluate for Post-Acute Rehab/Placement Precautions: Fall Assessment & Plan: Principal Problem: Colon obstruction (HCC) Active Problems: ITA (acute kidney injury) (HCC) Acute ischemic stroke (HCC) Acute right hemiparesis (HCC) Homonymous hemianopia, right Hypovolemia Encephalopathy Multifocal embolic strokes Left ROTARY HELPER stroke Gait abnormality Impaired mobility/ADLs Impaired transfers Cognitive Deficits Chemo Perkins Liam Jenkins is a 71 y.o. 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 Harrison lisa had complicating postoperative hypotension and cardiology was consulted fo r concern for NSTEMI ACS versus demand ischemia with elevated cardiac enzymes. Patient was stroke activated in 07/13 for vision changes and right-sided weakness , CT and MRI head performed revealing multifocal acute to subacute bilateral cer ebellar and cerebral infarcts with large left ROTARY HELPER territory infarct likely embol ic in nature [...] 06/04/2020 Performed by Keith Trinidad MD at [facility] OR PERCUTANEOUS NEPHROSTOLITHOTOMY/ PYELOSTOLITHOTOMY - 2 CM OR LESS Right 11/12 Performed by Tristan Bowman MD at [facility] OR URETEROSCOPY WITH URETERAL STENT EXCHANGE Right 02/15/2021 Performed by Tristan Bowman MD at [facility] OR PERCUTANEOUS NEPHROSTOLITHOTOMY/ PYELOSTOLITHOTOMY - GREATER THAN 2 CM Left 04/29/2021 Performed by Kvng Rm MD at [facility] OR PERCUTANEOUS PLACEMENT NEPHROSTOMY CATHETER WITH NEPHROSTOGRAM/ URETEROGRAM/ IMAGE-GUIDANCE Left 04/29/2021 Performed by Kvng Rm MD at [facility] OR CYSTOURETHROSCOPY WITH URETEROSCOPY AND/ OR PYELOSCOPY - WITH REMOVAL/ MANIP ULATION CALCULUS Left 04/29/2021 Performed by Kvng Rm MD at [facility] OR EXPLORATORY LAPAROTOMY, DIVERTING LOOP COLOSTOMY N/A 07/12/2021 Performed by Maurice Cao DO at [facility] OR Social History Socioeconomic History Marital [...] out with his L hand on command. DIRECTOR OF CHILD WELFARE SERVICES COGNITIVE EVALUATION SUMMARY PRAGMATICS: BEHAVIOR: AUDITORY COMPREHENSION: ORIENTATION: AUDITORY ATTENTION/WORKING MEMORY: AUDITORY MEMORY/SUSTAINED ATTENTION: NEW LEARNING: SEQUENCING/ORGANIZATION: PROBLEM SOLVING: REASONING: MATH/MONEY SKILLS: VISUAL PERCEPTUAL: SWALLOW EVALUATION SUMMARY Review of Systems: A 14 point review of systems was negative except for: that noted in the HPI Physical Exam: BP: 144/68 (07/15 0904) Temp: 36.7 C (98 F) (07/15 0800) Pulse: 76 (07/15 0800) Respirations: 11 PER MINUTE (07/15 799) SpO2: [...] 0.8 07/12/2021 Radiology: Reviewed Danyel Sosa MD DEPARTMENT MARINE ENGINEER * Kely Hernandez, RD - 07/13/2021 1:33 PM FIRE DEPARTMENT MARINE ENGINEER Associated Order(s): CONSULT DIETITIAN CLINICAL NUTRITION Clinical Nutrition Initial Assessment Name: Chemo Jenkins : 1950 Age: 71 y.o. Admission Date: 07/12/2021 LOS: 1 day Recommendation: ADAT to goal regular diet. Please encourage high-kcal high-protein unit shakes: High Protein Shake Ideas ? Vanilla 1 vanilla Atlantic Instant Breakfast + 2 vanilla ice creams + 1 vanil la Boost ? Very Chocolate 1 chocolate Atlantic Instant Breakfast + 2 chocolate ice cream s + 1 chocolate Boost ? Chocolate Raspberry 3 pkg Beneprotein + 1 raspberry sherbet + 1 chocolate Dipesh t ? Chocolate Peanut Butter 2 pkg Beneprotein + 1 chocolate milk + 2 chocolate ic e creams + 2 pkg peanut butter ? [place]a Shake 3 pkg Beneprotein + 1 vanilla ice cream + 1 peach Boost Breeze ? Grandin Socrates 3 pkg Beneprotein + 2 orange sherbet + 1 vanilla Boost ? Chocolate Banana 3 pkg Beneprotein+ 1 chocolate milk + 2 chocolate ice creams + 1/2 banana ? Vanilla Peanut Butter Banana 3 pkg Beneprotein + 2 vanilla ice creams + 1 pkg peanut butter + 1/2 banana + 1 vanilla Boost ? [place] 1 strawberry Atlantic Instant Breakfast + 2 vanilla ice creams + 1 strawberry Boost ? Chocolate Peanut Butter Banana 3 pkg Beneprotein + 2 chocolate ice creams + 1 pkg peanut butter + 1/2 banana + 1 chocolate Boost ? Lemon Cream 2 pkg Beneprotein + 2 Indian ice lemon (partially melted) + 1 van illa ice cream + 1 whole milk ? Gonzalez Slush 1 pkg Prosource + 1 pkg Beneprotein + 2 Indian ice gonzalez (parti ally melted) Comments: Mr. [...] Current Oral Intake: NPO Estimated Calorie Needs: 3398-4743 (30-35 kcal/kg) Estimated Protein Needs: 97 (1.5 [...] status Time Frame: Within 72 hours Kely Hernandez MS, RDN, LD, CNSC Available via Voalte [id number] DEPARTMENT MARINE ENGINEER * Marisol Sky RN - 07/13/2021 10:00 AM FIRE DEPARTMENT MARINE ENGINEER Associated Order(s): CONSULT WOUND/OSTOMY TEAM NURSE Images [...] Suggested Pouching Supplies: Urostomy - 2 piece 50712, 82518 Colostomy - 1 piece [place] colostomy pouch 33803 or 8901 1. Change pouch with any sign of leaking 2. Clean skin with water only - no soap or wipes 3. If skin is broken down surrounding stoma, sprinkle stoma powder and wipe aw ay the excess. 4. [place] no sting skin prep on powdered skin [...] With My Assessment? 07/13/21 1200 Stoma Assessment [place], round, protruding 07/13/21 1000 Peristomal Skin Assessment [...] Output (ml) 50 ml 07/13/21 0800 Marisol Sky, RN, BSN, CWON Wound Ostomy Nursing Consult Service Available via GearBox Text or SumZero M-F [phone] Office number [phone] Contact Team "Jukebox Coin Collector" after 4:00pm M-F/weekends/holidays DEPARTMENT MARINE ENGINEER * Vivi Stoddard MD - 07/13/2021 5:00 AM FIRE DEPARTMENT MARINE ENGINEER Associated Order(s): CONSULT CARDIOLOGY PHYSICIAN CARDIOLOGY CONSULT NOTE Reason for Consult: "Troponemia in the setting of hypotension" History of Present Illness Chemo Jenkins is [...] persists or worsens. Assessment & Recs Chemo S S Liam Jenkins is a 71 y.o. patient [...] plan above. After 5PM please call Cardiology fel low personal banking assistant. Monday - Monday 8AM-5PM please call Cardiology consult pager. Valentina Venegas Fellow, Cardiovascular Medicine Pager: [phone] I personally took the history, examined the [...] to his and son. [facility] [...] RIGHT EYE AT BEDTIME [employer] [facility] [place] Urostomy supplies and accessories [...] by mouth daily a s needed. Vit A,C,A-Xtpg-Atjfvd (PRESERVISION AREDS) 14,320-515-200 msek-bv-peos cap Take 2 capsules by mouth daily. [...] 06/04/2020 Performed by Keith Trinidad MD at [facility] OR PERCUTANEOUS NEPHROSTOLITHOTOMY/ PYELOSTOLITHOTOMY - 2 CM OR LESS Right 11/12 Performed by Tristan Bowman MD at [facility] OR URETEROSCOPY WITH URETERAL STENT EXCHANGE Right 02/15/2021 Performed by Tristan Bowman MD at [facility] OR PERCUTANEOUS NEPHROSTOLITHOTOMY/ PYELOSTOLITHOTOMY - GREATER THAN 2 CM Left 04/29/2021 Performed by Kvng Rm MD at [facility] OR PERCUTANEOUS PLACEMENT NEPHROSTOMY CATHETER WITH NEPHROSTOGRAM/ URETEROGRAM/ IMAGE-GUIDANCE Left 04/29/2021 Performed by Kvng Rm MD at [facility] OR CYSTOURETHROSCOPY WITH URETEROSCOPY AND/ OR PYELOSCOPY - WITH REMOVAL/ MANIP ULATION CALCULUS Left 04/29/2021 Performed by Kvng Rm MD at [facility] OR Social History Social History Socioeconomic [...] (97.6 F) (07/13 0400) Pulse: 69 (07/13 041) Respirations: 12 PER MINUTE (07/13 041) SpO2: [...] Screen NEG Electronic Crossmatch YES Unit Number [id number] Blood Component Type RBC,ADSOL,LEUKO REDUCED,2ND CONT. Unit Division 00 Status OF Unit TRANSFUSED ISSUE DATE TIME PRODUCT CODE D2348C63 BLOOD TYPE O NEG CODING STATUS 9500 BLOOD EXPIRATION DATE Transfusion Status OK TO TRANSFUSE Crossmatch Result COMPATIBLE,ELECTRONIC Unit Number [id number] Blood Component Type RBC,ADSOL,LEUKO REDUCED,2ND CONT. Unit Division 00 Status OF Unit TRANSFUSED ISSUE DATE TIME PRODUCT CODE T4630A64 BLOOD TYPE O NEG CODING STATUS 9500 BLOOD EXPIRATION DATE Transfusion Status OK TO TRANSFUSE Crossmatch Result COMPATIBLE,ELECTRONIC POC BLOOD GAS ARTERIAL Collection Time: 07/12/21 8:50 PM Result Value Ref Range PH-ART-POC 7.39 7.35 - 7.45 ULA0-XWE-NMF 32 (L) 35 - 45 MMHG PO2-ART-POC 103 (H) 80 - 100 MMHG Base Def-ART-POC 6.0 MMOL/L O2 Sat-ART-POC 98.0 95 - 99 % Jhcusmezgeo-ARA-DXL 19.1 (L) 21 - 28 MMOL/L POC [...] Ref Range Units Ordered 1 Unit Number [id number] Blood Component Type CRY 5 POOLED Unit Division 00 Status OF Unit TRANSFUSED ISSUE DATE TIME PRODUCT CODE F7613X84 BLOOD TYPE O POS CODING STATUS 5100 BLOOD EXPIRATION DATE Transfusion Status OK TO TRANSFUSE PREPARE APHERESIS PLATELETS Collection Time: 07/12/21 10:20 PM Result Value Ref Range Units Ordered 1 Unit Number [id number] Blood Component Type APHERESIS PLT,LEUKO REDUCED, BACTERIAL MONITOR 7D, IRRADIATED,2ND CONT Unit Division 00 Status OF Unit TRANSFUSED ISSUE DATE TIME PRODUCT CODE X0534Q00 BLOOD TYPE A NEG CODING STATUS 0600 [...] Ref Range Units Ordered 2 Unit Number [id number] Blood Component Type THAWED PLASMA Unit Division 00 Status OF Unit ISSUED ISSUE DATE TIME PRODUCT CODE E8499T52 BLOOD TYPE B POS CODING STATUS 73 BLOOD EXPIRATION DATE Transfusion Status OK TO TRANSFUSE Unit Number [id number] Blood Component Type APHERESIS PLASMA THAWED Unit Division 00 Status OF Unit ISSUED ISSUE DATE TIME PRODUCT CODE N3720N42 BLOOD TYPE B POS CODING STATUS 7299 BLOOD EXPIRATION DATE Transfusion Status OK TO [...] Sat-Arterial 94.9 (L) 95 - 99 % Wmxjnbpjpcg-VPT-Tyh 23.9 21 - 28 MMOL/L CBC Collection [...] - 35 MCMOL/L Glucose: (!) 126 (07/13/21 3615) POC Glucose (Download): (!) 116 (07/12/212050) DEPARTMENT MARINE ENGINEER documented in this encounter OR Notes * Operative Report (Direct Entry) - Maurice Cao DO - 07/12/2021 12:53 PM FIRE DEPARTMENT MARINE ENGINEER OPERATIVE REPORT Name: Chemo Jenkins is a [...] ught up through the defect using a Pallavi drain. The midline fascia was then c [...] PACU - stable Scott Garcia MD Pager [phone] ATTESTATION I performed this procedure with a resident. and I was present for the entire pro cedure. Staff name: Maurice Cao DO Date: 07/14/2021 DEPARTMENT MARINE ENGINEER documented in this encounter Miscellaneous Notes * Care Plan - Joseph Hawkins RN - 07/17/2021 6:42 PM FIRE DEPARTMENT MARINE ENGINEER Problem: Skin Integrity Goal: Skin integrity intact [...] 07/17/2021 1840) Cognitive status restored to baseline: [place] patient to reality Promote rest Complete delirium assessment scale Assess patient history Reduce delirium risk Problem: Nutrition Deficit Goal: Adequate nutritional intake Flowsheets (Taken 07/17/2021 1840) Adequate nutritional intake: Promote oral fluid intake Assess dietary preferences DEPARTMENT MARINE ENGINEER * Response Teams - Farzana Ambriz RN - 07/14/2021 10:23 AM FIRE DEPARTMENT MARINE ENGINEER Patient stroke activated for increased right sided weakness, deviation and extin ction. On arrival with neuro team, patient improved from yesterday. Stroke activ ation cancelled per Otf Vines APRN. DEPARTMENT MARINE ENGINEER * Acute Stroke Response - Liliana Low RN - 07/13/2021 1:13 PM FIRE DEPARTMENT MARINE ENGINEER RN Stroke Activation Summary Date of Service: 07/13/2021 Chemo Jenkins is a 71 y.o. male. : 1950 MR N#: [id number] Allergies: Tegaderm, Erythromycin, and Readyprep chg [chlorhexidine gluconate] ASRT Arrival: 1232 Location of Response : 0023 Page Received: 1220 Clinical Presentation: Ataxia, Right [...] obtained by primary team where a left ROTARY HELPER infarct was found. Patient had surgery yesterday [...] 06/04/2020 Performed by Keith Trinidad MD at [facility] OR PERCUTANEOUS NEPHROSTOLITHOTOMY/ PYELOSTOLITHOTOMY - 2 CM OR LESS Right 11/12 Performed by Tristan Bowman MD at [facility] OR URETEROSCOPY WITH URETERAL STENT EXCHANGE Right 02/15/2021 Performed by Tristan Bowman MD at [facility] OR PERCUTANEOUS NEPHROSTOLITHOTOMY/ PYELOSTOLITHOTOMY - GREATER THAN 2 CM Left 04/29/2021 Performed by Kvng Rm MD at [facility] OR PERCUTANEOUS PLACEMENT NEPHROSTOMY CATHETER WITH NEPHROSTOGRAM/ URETEROGRAM/ IMAGE-GUIDANCE Left 04/29/2021 Performed by Kvng Rm MD at [facility] OR CYSTOURETHROSCOPY WITH URETEROSCOPY AND/ OR PYELOSCOPY - WITH REMOVAL/ MANIP ULATION CALCULUS Left 04/29/2021 Performed by Kvng Rm MD at [facility] OR Social History Socioeconomic History Marital [...] Narrative Not on file Liliana Low RN DEPARTMENT MARINE ENGINEER * Acute Stroke Response - Otf Vines APRN-ANN - 07/13/2021 1:07 PM FIRE DEPARTMENT MARINE ENGINEER NAME:Chemo Jenkins :1950 AGE: 71 y.o. ADMISSION [...] a dominant moderate to larg e left ROTARY HELPER territory infarct. At that time the stroke team was activated. NIHSS on arrival was 7 for disorientation, R side drift, R homonymous hemianopia and L side extinction deficit. Elevated Creatinine prevented us from getting CTA head and neck. Impression: Likely Subacute ischemic stroke, likely embolic due to multiple vasc ular territory involvement Suspected localization of Stroke Sx: Left ROTARY HELPER territory Suspected etiology: Cardio Embolism Pre-event mRS: [...] ASA daily - CBC, BMP routine - PT/OT/DIRECTOR OF CHILD WELFARE SERVICES consult eval and treat - Rehab consult for assessment of post stroke care The patient was seen and discussed with Dr. Joshua Vines, TUNNEL KILN REPAIRER-PORT SURVEYOR Vascular Neurology History of Present Ilness History [...] ASRT Arrival: 1232 Location of Response : 6408 Page Received: 0654 CT/CTP/CTA: BP: 108/65 (07/13 1200) Temp: 36.6 C (97.8 F) (07/13 1200) Pulse: 70 (07/13 1232) Respirations: 13 PER MINUTE (07/13 1232) SpO2: 98 % (07/13 1232) SpO2 Pulse: 68 (07/13 1200) Height: 172.7 cm (68") (07/13 0700) NIHSS Completed at: 1240 NIH Stroke Scale Item Scoring Definition Score 1a. LOC 0=alert and responsive 1=arousable to minor stimulation 2=arousable only to painful stimulation 3=reflex responses or unrousable 0 1b. LOC questions-as patients age and month. Must be exact. 0=both correct 1=one correct (or dysarthria, intubated, foreign language) 2=neither correct 2 1c. 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, kosher butcher and release non-paretic hand (other 1 step [...] 06/04/2020 Performed by Keith Trinidad MD at [facility] OR PERCUTANEOUS NEPHROSTOLITHOTOMY/ PYELOSTOLITHOTOMY - 2 CM OR LESS Right 11/12 Performed by Tristan Bowman MD at [facility] OR URETEROSCOPY WITH URETERAL STENT EXCHANGE Right 02/15/2021 Performed by Tristan Bowman MD at [facility] OR PERCUTANEOUS NEPHROSTOLITHOTOMY/ PYELOSTOLITHOTOMY - GREATER THAN 2 CM Left 04/29/2021 Performed by Kvng Rm MD at [facility] OR PERCUTANEOUS PLACEMENT NEPHROSTOMY CATHETER WITH NEPHROSTOGRAM/ URETEROGRAM/ IMAGE-GUIDANCE Left 04/29/2021 Performed by Kvng Rm MD at [facility] OR CYSTOURETHROSCOPY WITH URETEROSCOPY AND/ OR PYELOSCOPY - WITH REMOVAL/ MANIP ULATION CALCULUS Left 04/29/2021 Performed by Kvng Rm MD at [facility] OR History reviewed. No pertinent family [...] (Download): (!) 116 (07/12/212050) Pertinent radiology reviewed. DEPARTMENT MARINE ENGINEER Associated attestation - Angela Lewis MD - 07/14/2021 10:35 AM FIRE DEPARTMENT MARINE ENGINEER ATTESTATION I personally interviewed and examined the patient. I have reviewed the history, physical, impression and plan outlined by the Nurse Practitioner. The patient was stroke activated for visual alteration. CT head shows completed left band head saw operator stroke, smaller cerebellar strokes. On examination there is lethargy, right homonomous hemianopia, drift RUE and RLE . My impression is embolic strokes. Remote hx of a fib but none on tele My plan is MRI head, mra head, carotid dopplers, continue aspirin. Staff name: Angela Lewis MD Date: 07/14/2021 * Response Teams - Dacia Yusuf RN - 07/12/2021 8:52 PM FIRE DEPARTMENT MARINE ENGINEER Rapid Response Team Progress Note Date: 07/12/2021 Time: 9:22 PM Patient: Chemo Jenkins Attending: Maurice Cao DO Service: Surgery-Oncology - 7496 Admission Date: 07/12/2021 LOS: 0 days A Code/Rapid Response Timeline Event Report has been created for this patient on 07/12 at 2033 for AMS. ABG & labs obtained, Narcan administered. LR bolus ordered and administered. Surgery team at bedside for evaluation.VSS stabilized. KILN HEAD HOUSE OPERATOR dismissed. KILN HEAD HOUSE OPERATOR to follow up per protocol. Dacia Yusuf RN DEPARTMENT MARINE ENGINEER * Care Plan - Alec Franklin RT - 07/12/2021 6:05 PM FIRE DEPARTMENT MARINE ENGINEER RT Adult Assessment Note NAME:Chemo Jenkins :1950 [...] Sounds: Clear (Implies normal) Respiratory Effort: Non-Labored DEPARTMENT MARINE ENGINEER documented in this encounter Plan of Treatment Date/Time Name Type Priority Associated Diag noses 07/12/2021 2:03 PM FIRE DEPARTMENT MARINE ENGINEER POC ANES US GUIDED NERVE Imaging Routine BLOCK 07/12/2021 2:05 PM FIRE DEPARTMENT MARINE ENGINEER POC ANES US GUIDED NERVE Imaging Routine [...] track (07/12/2021 Yes April Marie, 6:07 PM FIRE DEPARTMENT MARINE ENGINEER) RN Note: "To heal and recover, and get stronger, be as healthy as I can" documented as of this encounter Procedures Comments Procedure Name Priority Date/Time Associated Diag nosis CBC Routine 07/20/2021 8:17 AM FIRE DEPARTMENT MARINE ENGINEER HC PHOSPHOROUS, SERUM Routine 07/19/2021 2:42 AM FIRE DEPARTMENT MARINE ENGINEER HC MAGNESIUM Routine 07/19/2021 2:42 AM FIRE DEPARTMENT MARINE ENGINEER HC BASIC METABOLIC PANEL Routine 07/19/2021 2:42 AM FIRE DEPARTMENT MARINE ENGINEER HC PHOSPHOROUS, SERUM Routine 07/17/2021 3:35 AM FIRE DEPARTMENT MARINE ENGINEER HC MAGNESIUM Routine 07/17/2021 3:35 AM FIRE DEPARTMENT MARINE ENGINEER HC BASIC METABOLIC PANEL Routine 07/17/2021 3:35 AM FIRE DEPARTMENT MARINE ENGINEER HC CBC,AUTOMATED Routine 07/16/2021 4:40 AM FIRE DEPARTMENT MARINE ENGINEER HC PHOSPHOROUS, SERUM Routine 07/16/2021 4:40 AM FIRE DEPARTMENT MARINE ENGINEER HC MAGNESIUM Routine 07/16/2021 4:40 AM FIRE DEPARTMENT MARINE ENGINEER HC BASIC METABOLIC PANEL Routine 07/16/2021 4:40 AM FIRE DEPARTMENT MARINE ENGINEER PV CAROTID ARTERY DUPLEX Routine 07/15/2021 SCAN 9:04 AM FIRE DEPARTMENT MARINE ENGINEER HC CBC,AUTOMATED Routine 07/15/2021 2:55 AM FIRE DEPARTMENT MARINE ENGINEER HC PHOSPHOROUS, SERUM Routine 07/15/2021 2:55 AM FIRE DEPARTMENT MARINE ENGINEER HC MAGNESIUM Routine 07/15/2021 2:55 AM FIRE DEPARTMENT MARINE ENGINEER HC BASIC METABOLIC PANEL Routine 07/15/2021 2:55 AM FIRE DEPARTMENT MARINE ENGINEER POC GLUCOSE 07/14/2021 11:04 AM FIRE DEPARTMENT MARINE ENGINEER HC HEMOGLOBIN A1C STAT 07/14/2021 6:45 AM FIRE DEPARTMENT MARINE ENGINEER HC STAT 07/14/2021 LIPID-5:CHOL/TRG/HDL/LDL+ 6:45 AM FIRE DEPARTMENT MARINE ENGINEER VLDL HC TROPONIN-I Routine 07/14/2021 5:56 AM FIRE DEPARTMENT MARINE ENGINEER HC CBC,AUTOMATED Routine 07/14/2021 3:11 AM FIRE DEPARTMENT MARINE ENGINEER HC PHOSPHOROUS, SERUM Routine 07/14/2021 3:11 AM FIRE DEPARTMENT MARINE ENGINEER HC MAGNESIUM Routine 07/14/2021 3:11 AM FIRE DEPARTMENT MARINE ENGINEER HC BASIC METABOLIC PANEL Routine 07/14/2021 3:11 AM FIRE DEPARTMENT MARINE ENGINEER TRANSFUSE RBC'S STAT 07/14/2021 12:45 AM FIRE DEPARTMENT MARINE ENGINEER TROPONIN-I Routine 07/14/2021 12:20 AM FIRE DEPARTMENT MARINE ENGINEER MRA HEAD WO CONTRAST STAT 07/13/2021 10:54 PM FIRE DEPARTMENT MARINE ENGINEER MRI HEAD WO CONTRAST STAT 07/13/2021 10:35 PM FIRE DEPARTMENT MARINE ENGINEER HC CBC,AUTOMATED STAT 07/13/2021 9:21 PM FIRE DEPARTMENT MARINE ENGINEER HC PHOSPHOROUS, SERUM STAT 07/13/2021 9:21 PM FIRE DEPARTMENT MARINE ENGINEER HC MAGNESIUM STAT 07/13/2021 9:21 PM FIRE DEPARTMENT MARINE ENGINEER HC LACTIC ACID(LACTATE) STAT 07/13/2021 9:21 PM FIRE DEPARTMENT MARINE ENGINEER HC BLOOD STAT 07/13/2021 GASES;(CALCULATED 02) 9:21 PM FIRE DEPARTMENT MARINE ENGINEER HC CALCIUM IONIZED STAT 07/13/2021 9:21 PM FIRE DEPARTMENT MARINE ENGINEER BASIC METABOLIC PANEL STAT 07/13/2021 9:21 PM FIRE DEPARTMENT MARINE ENGINEER TROPONIN-I 07/13/2021 6:01 PM FIRE DEPARTMENT MARINE ENGINEER HC TROPONIN-I Routine 07/13/2021 12:17 PM FIRE DEPARTMENT MARINE ENGINEER CT HEAD WO CONTRAST STAT 07/13/2021 11:54 AM FIRE DEPARTMENT MARINE ENGINEER 2D + DOPPLER ECHO W/ GILDA 07/13/2021 CONTRAST 8:00 AM FIRE DEPARTMENT MARINE ENGINEER CHEST SINGLE VIEW GILDA 07/13/2021 7:13 AM FIRE DEPARTMENT MARINE ENGINEER TROPONIN-I Routine 07/13/2021 5:52 AM FIRE DEPARTMENT MARINE ENGINEER CHEST SINGLE VIEW STAT 07/13/2021 3:33 AM FIRE DEPARTMENT MARINE ENGINEER HC AMMONIA Routine 07/13/2021 3:00 AM FIRE DEPARTMENT MARINE ENGINEER CBC Routine 07/13/2021 2:42 AM FIRE DEPARTMENT MARINE ENGINEER HC BLOOD STAT 07/13/2021 GASES;(CALCULATED 02) 2:32 AM FIRE DEPARTMENT MARINE ENGINEER TRANSFUSE PLASMA (FFP) STAT 07/13/2021 2:18 AM FIRE DEPARTMENT MARINE ENGINEER HC TEG W KAOLIN R Routine 07/13/2021 ACTIVATED CLOTTING TIME 1:15 AM FIRE DEPARTMENT MARINE ENGINEER HC TROPONIN-I Add on 07/13/2021 1:15 AM FIRE DEPARTMENT MARINE ENGINEER HC CBC,AUTOMATED Routine 07/13/2021 1:15 AM FIRE DEPARTMENT MARINE ENGINEER HC PHOSPHOROUS, SERUM Routine 07/13/2021 1:15 AM FIRE DEPARTMENT MARINE ENGINEER HC MAGNESIUM Routine 07/13/2021 1:15 AM FIRE DEPARTMENT MARINE ENGINEER HC LACTIC ACID(LACTATE) GILDA 07/13/2021 1:15 AM FIRE DEPARTMENT MARINE ENGINEER HC CALCIUM IONIZED Routine 07/13/2021 1:15 AM FIRE DEPARTMENT MARINE ENGINEER HC BASIC METABOLIC PANEL Routine 07/13/2021 1:15 AM FIRE DEPARTMENT MARINE ENGINEER TRANSFUSE PLASMA (FFP) STAT 07/13/2021 12:23 AM FIRE DEPARTMENT MARINE ENGINEER PREPARE PLASMA (FFP) STAT 07/13/2021 12:11 AM FIRE DEPARTMENT MARINE ENGINEER TRANSFUSE CRYOPRECIPITATE STAT 07/12/2021 11:18 PM FIRE DEPARTMENT MARINE ENGINEER TRANSFUSE APHERESIS STAT 07/12/2021 PLATELETS 11:17 PM FIRE DEPARTMENT MARINE ENGINEER TRANSFUSE RBC'S STAT 07/12/2021 11:04 PM FIRE DEPARTMENT MARINE ENGINEER CBC STAT 07/12/2021 10:50 PM FIRE DEPARTMENT MARINE ENGINEER PREPARE APHERESIS Routine 07/12/2021 PLATELETS 10:20 PM FIRE DEPARTMENT MARINE ENGINEER PREPARE CRYOPRECIPITATE STAT 07/12/2021 9:55 PM FIRE DEPARTMENT MARINE ENGINEER TRANSFUSE RBC'S STAT 07/12/2021 9:40 PM FIRE DEPARTMENT MARINE ENGINEER HC TEG W KAOLIN R STAT 07/12/2021 ACTIVATED CLOTTING TIME 9:15 PM FIRE DEPARTMENT MARINE ENGINEER HC CBC,AUTOMATED STAT 07/12/2021 9:15 PM FIRE DEPARTMENT MARINE ENGINEER HC PHOSPHOROUS, SERUM STAT 07/12/2021 9:15 PM FIRE DEPARTMENT MARINE ENGINEER HC MAGNESIUM STAT 07/12/2021 9:15 PM FIRE DEPARTMENT MARINE ENGINEER HC CALCIUM IONIZED STAT 07/12/2021 9:15 PM FIRE DEPARTMENT MARINE ENGINEER HC COMPREHENSIVE STAT 07/12/2021 METABOLIC PANEL 9:15 PM FIRE DEPARTMENT MARINE ENGINEER POC GLUCOSE 07/12/2021 8:51 PM FIRE DEPARTMENT MARINE ENGINEER HC BLOOD GAS, POC 07/12/2021 8:50 PM FIRE DEPARTMENT MARINE ENGINEER HC SODIUM, POC 07/12/2021 8:50 PM FIRE DEPARTMENT MARINE ENGINEER HC POTASSIUM, POC 07/12/2021 8:50 PM FIRE DEPARTMENT MARINE ENGINEER HC HEMATOCRIT POC 07/12/2021 8:50 PM FIRE DEPARTMENT MARINE ENGINEER COLOSTOMY/ SKIN LEVEL 07/12/2021 Malignant neopl asm of CECOSTOMY 12:29 PM FIRE DEPARTMENT MARINE ENGINEER urinary bladder, unspecified site (HCC) HC ABO GROUP STAT 07/12/2021 11:45 AM FIRE DEPARTMENT MARINE ENGINEER TELEMETRY STRIPS-SCAN 07/12/2021 12:00 AM FIRE DEPARTMENT MARINE ENGINEER ECG-SCAN 07/12/2021 12:00 AM FIRE DEPARTMENT MARINE ENGINEER ECG-SCAN 07/12/2021 12:00 AM FIRE DEPARTMENT MARINE ENGINEER documented in this encounter Results * (ABNORMAL) CBC (07/20/2021 8:17 AM FIRE DEPARTMENT MARINE ENGINEER) White Blood 11.0 4.5 - 11.0 K/UL [...] LAB Specimen Blood (substance) Performing Organization Address City/[facility]/ZIP Code P dg Number [facility] [address] [place] [address] * PHOSPHORUS (07/19/2021 2:42 AM FIRE DEPARTMENT MARINE ENGINEER) Phosphorus 3.4 2.0 - 4.5 MG/DL [facility] Specimen Blood (substance) Performing Organization Address City/[facility]/ZIP Code P dg Number [facility] [address] [place] [address] * MAGNESIUM (07/19/2021 2:42 AM FIRE DEPARTMENT MARINE ENGINEER) Magnesium 1.9 1.6 - 2.6 mg/dL [facility] Specimen Blood (substance) Performing Organization Address [facility]/ZIP Code P dg Number [facility] [address] [place] [phone] * (ABNORMAL) BASIC METABOLIC PANEL (07/19/2021 2:42 AM FIRE DEPARTMENT MARINE ENGINEER) Sodium 137 137 - 147 MMOL/L KU [...] equation Specimen Blood (substance) Performing Organization Address [facility] Code P dg Number [facility] [address] [place] [address] * PHOSPHORUS (07/17/2021 3:35 AM FIRE DEPARTMENT MARINE ENGINEER) Phosphorus 2.0 2.0 - 4.5 MG/DL [facility] Specimen Blood (substance) Performing Organization Address [facility] Code P dg Number [facility] [address] [place] [address] * MAGNESIUM (07/17/2021 3:35 AM FIRE DEPARTMENT MARINE ENGINEER) Magnesium 1.7 1.6 - 2.6 mg/dL [facility] Specimen Blood (substance) Performing Organization Address [facility] Code P dg Number [facility] [address] [place] [address] * (ABNORMAL) BASIC METABOLIC PANEL (07/17/2021 3:35 AM FIRE DEPARTMENT MARINE ENGINEER) Sodium 133 (L) 137 - 147 MMOL/L [...] equation Specimen Blood (substance) Performing Organization Address [facility] Code P dg Number [facility] [address] [place] [phone] * (ABNORMAL) PHOSPHORUS (07/16/2021 4:40 AM FIRE DEPARTMENT MARINE ENGINEER) Phosphorus 1.7 (L) 2.0 - 4.5 MG/DL [facility] Specimen Blood (substance) Performing Organization Address [facility] P dg Number [facility] [address] [place] [phone] * MAGNESIUM (07/16/2021 4:40 AM FIRE DEPARTMENT MARINE ENGINEER) Magnesium 1.9 1.6 - 2.6 mg/dL [facility] Specimen Blood (substance) Performing Organization Address [facility] P dg Number [facility] [address] [place] [phone] * (ABNORMAL) BASIC METABOLIC PANEL (07/16/2021 4:40 AM FIRE DEPARTMENT MARINE ENGINEER) Sodium 136 (L) 137 - 147 MMOL/L [...] equation Specimen Blood (substance) Performing Organization Address [facility] P dg Number [facility] [address] [place] [phone] * (ABNORMAL) CBC (07/16/2021 4:40 AM FIRE DEPARTMENT MARINE ENGINEER) White Blood 9.1 4.5 - 11.0 K/UL [...] Code P dg Number MAIN LAB [address] [place] [address] * PV CAROTID ARTERY DUPLEX SCAN (07/15/2021 9:04 AM FIRE DEPARTMENT MARINE ENGINEER) LEFT CCA DIST 0.83 m/s OTHER OUTSIDE [...] ECHO PV Leisa Frias, Student OTHER OUTSIDE TUBE LASER OPERATOR LAB Cardiology Sherri Epiq OTHER OUTSIDE Ultrasound LAB Machine RIGHT ICA/CCA 0.95 m/s OTHER OUTSIDE SYS LAB LEFT ICA/CCA 0.92 m/s OTHER OUTSIDE SYS LAB Modality Anatomical Region Laterality Ultrasound Specimen Narrative OTHER OUTSIDE LAB - 07/15/2021 10:14 AM FIRE DEPARTMENT MARINE ENGINEER 1. Minimal atheromatous changes visualized in bilateral common and internal carotid arteries without hemodynamically significant (>50%) stenosis. 2. There is normal antegrade flow in tahmina ateral vertebral arteries 3. No evidence of proximal subclavian st enosis bilaterally No prior studies available for comparison. Performing Organization Address City/State/ZIP Code P dg Number OTHER OUTSIDE LAB * PHOSPHORUS (07/15/2021 2:55 AM FIRE DEPARTMENT MARINE ENGINEER) Phosphorus 2.0 2.0 - 4.5 MG/DL [facility] Specimen Blood (substance) Performing Organization Address City/[facility] Code P dg Number [facility] [address] [place] [address] * MAGNESIUM (07/15/2021 2:55 AM FIRE DEPARTMENT MARINE ENGINEER) Magnesium 2.3 1.6 - 2.6 mg/dL [facility] Specimen Blood (substance) Performing Organization Address [facility] P dg Number [facility] [address] [place] [address] * (ABNORMAL) BASIC METABOLIC PANEL (07/15/2021 2:55 AM FIRE DEPARTMENT MARINE ENGINEER) Sodium 140 137 - 147 MMOL/L KU [...] equation Specimen Blood (substance) Performing Organization Address City/[facility] Code P dg Number [facility] [address] [place] [phone] * (ABNORMAL) CBC (07/15/2021 2:55 AM FIRE DEPARTMENT MARINE ENGINEER) White Blood 9.5 4.5 - 11.0 K/UL [...] LAB Specimen Blood (substance) Performing Organization Address [facility] P dg Number [facility] [address] [place] [address] * (ABNORMAL) POC GLUCOSE (07/14/2021 11:04 AM FIRE DEPARTMENT MARINE ENGINEER) Glucose, POC 118 (H) 70 - 100 MG/DL MAIN LAB Specimen Performing Organization Address [facility] P dg Number [facility] [address] [place] [address] * HEMOGLOBIN A1C (07/14/2021 6:45 AM FIRE DEPARTMENT MARINE ENGINEER) Hemoglobin A1C 5.6 4.0 - 6.0 % [facility] Comment: The ADA recommends that most patients with type 1 and type 2 diabetes maintain an A1c level <7%. Specimen Blood (substance) Performing Organization Address [facility] Code P dg Number [facility] [address] [place] [address] * (ABNORMAL) LIPID PROFILE (07/14/2021 6:45 AM FIRE DEPARTMENT MARINE ENGINEER) Cholesterol 87 <200 MG/DL [facility]IN [facility] [...] mg/dL. Specimen Blood (substance) Performing Organization Address City/[facility]/ZIP Code P dg Number MAIN LAB [address] [place] [address] * (ABNORMAL) TROPONIN-I (07/14/2021 5:56 AM FIRE DEPARTMENT MARINE ENGINEER) Troponin-I 0.60 (H) 0.0 - 0.05 NG/ML [facility] Specimen Blood (substance) Performing Organization Address City/[facility]/ZIP Code P dg Number MAIN LAB [address] [place] [address] * PHOSPHORUS (07/14/2021 3:11 AM FIRE DEPARTMENT MARINE ENGINEER) Phosphorus 3.0 2.0 - 4.5 MG/DL [facility] Specimen Blood (substance) Performing Organization Address [facility]/ZIP Code P dg Number MAIN LAB [address] [place] [address] * MAGNESIUM (07/14/2021 3:11 AM FIRE DEPARTMENT MARINE ENGINEER) Magnesium 2.5 1.6 - 2.6 mg/dL [facility] Specimen Blood (substance) Performing Organization Address [facility]/ZIP Code P dg Number [facility] [address] [place] [address] * (ABNORMAL) BASIC METABOLIC PANEL (07/14/2021 3:11 AM FIRE DEPARTMENT MARINE ENGINEER) Sodium 139 137 - 147 MMOL/L K[facility] [...] equation Specimen Blood (substance) Performing Organization Address City/[facility] P dg Number [facility] [address] [place] [address] * (ABNORMAL) CBC (07/14/2021 3:11 AM FIRE DEPARTMENT MARINE ENGINEER) White Blood 10.6 4.5 - 11.0 K/UL [...] LAB Specimen Blood (substance) Performing Organization Address [facility] P dg Number [facility] [address] [place] [address] * TRANSFUSE RBC'S (07/14/2021 2:52 AM FIRE DEPARTMENT MARINE ENGINEER) Specimen Blood (substance) * TRANSFUSE RBC'S (07/14/2021 2:52 AM FIRE DEPARTMENT MARINE ENGINEER) Specimen Blood (substance) * (ABNORMAL) TROPONIN-I (07/14/2021 12:20 AM FIRE DEPARTMENT MARINE ENGINEER) Troponin-I 0.73 (H) 0.0 - 0.05 NG/ML MAIN LAB Specimen Blood (substance) Performing Organization Address [facility] Code P dg Number MAIN LAB [address] [place] [address] * MRA HEAD WO CONTRAST (07/13/2021 10:54 PM FIRE DEPARTMENT MARINE ENGINEER) Modality Anatomical Region Laterality Magnetic Resonance Head Specimen Addenda Addendum by Maurice Parks MD on 07/14/2021 4:55 AM FIRE DEPARTMENT MARINE ENGINEER Finalized by Maurice Parks M.D. on 07/14/2021 [...] [facility] RAD RESULTS - 07/14/2021 12:32 AM FIRE DEPARTMENT MARINE ENGINEER MR brain: 1. Redemonstration of recent multifoca l cerebral and cerebellar infarcts with a dominant large left ROTARY HELPER territory infarct. This appears represent a combination [...] MRA head: 1. Occlusion of the left ROTARY HELPER at the leve l of the mid to distal P2 segment (corresponding to the large left ROTARY HELPER territory infarct). 2. Otherwise patent major intracranial a rteries without focal stenosis. By my electronic signature, I attest that I have personally reviewed the images for this examination and formulated the interpretations and opinions expressed in this report Narrative [facility] RAD RESULTS - 07/14/2021 12:32 AM FIRE DEPARTMENT MARINE ENGINEER EXAM: MRI AND MRA BRAIN HISTORY: left ROTARY HELPER infarct, TECHNIQUE: Multiplanar and multisequence MR imaging of the head was performed. This was done without contrast. 3D uzdr-[id number]-ycnrzv images of the [place] was [...] are unremarkable. Redemonstration of recent large left ROTARY HELPER territory infarct. There are additional multifocal smaller [...] occlusion/loss of flow void within the left ROTARY HELPER at the level of the mid to distal P2 segment. Portions of the left P3 and P4 segments also show absent flow voids. The anterior, middle, and right posterior cerebral arteries are patent without focal narrowing. No aneurysm or arteriovenous malformation is identified. Procedure Note Maurice Parks MD - 07/14/2021 EXAM: MRI AND MRA BRAIN HISTORY: left ROTARY HELPER infarct, TECHNIQUE: Multiplanar and multisequence MR imaging of the head was performed. This was done without contrast. 3D dfqg-[id number] images of the [place] was [...] are unremarkable. Redemonstration of recent large left ROTARY HELPER territory infarct. There are additional multifocal smaller [...] occlusion/loss of flow void within the left ROTARY HELPER at the level of the mid to distal P2 segment. Portions of the left P3 and P4 segments also show absent flow voids. The anterior, middle, and right posterior cerebral arteries are patent without focal narrowing. No aneurysm or arteriovenous malformation is identified. IMPRESSION MR brain: 1. Redemonstration of recent multifocal cerebral and cerebellar infarcts with a dominant large left ROTARY HELPER territory infarct. This appears represent a combination [...] MRA head: 1. Occlusion of the left ROTARY HELPER at the leve l of the mid to distal P2 segment (corresponding to the large left ROTARY HELPER territory infarct). 2. Otherwise patent major intracranial a rteries without focal stenosis. By my electronic signature, I attest that I have personally reviewed the images for this examination and formulated the interpretations and opinions expressed in this report Performing Organization Address City/State/ZIP Code P dg Number [facility] RAD RESULTS * MRI HEAD WO CONTRAST (07/13/2021 10:35 PM FIRE DEPARTMENT MARINE ENGINEER) Modality Anatomical Region Laterality Magnetic Resonance Head Specimen Addenda Addendum by Maurice Parks MD on 07/14/2021 4:55 AM FIRE DEPARTMENT MARINE ENGINEER Finalized by Maurice Parks M.D. on 07/14/2021 [...] [facility] RAD RESULTS - 07/14/2021 12:32 AM FIRE DEPARTMENT MARINE ENGINEER MR brain: 1. Redemonstration of recent multifoca l cerebral and cerebellar infarcts with a dominant large left ROTARY HELPER territory infarct. This appears represent a combination [...] MRA head: 1. Occlusion of the left ROTARY HELPER at the leve l of the mid to distal P2 segment (corresponding to the large left ROTARY HELPER territory infarct). 2. Otherwise patent major intracranial a rteries without focal stenosis. By my electronic signature, I attest that I have personally reviewed the images for this examination and formulated the interpretations and opinions expressed in this report Narrative [facility] RAD RESULTS - 07/14/2021 12:32 AM FIRE DEPARTMENT MARINE ENGINEER EXAM: MRI AND MRA BRAIN HISTORY: left ROTARY HELPER infarct, TECHNIQUE: Multiplanar and multisequence MR imaging of the head was performed. This was done without contrast. 3D cjno-sx-txycrh images of the [place] was [...] are unremarkable. Redemonstration of recent large left ROTARY HELPER territory infarct. There are additional multifocal smaller [...] occlusion/loss of flow void within the left ROTARY HELPER at the level of the mid to distal P2 segment. Portions of the left P3 and P4 segments also show absent flow voids. The anterior, middle, and right posterior cerebral arteries are patent without focal narrowing. No aneurysm or arteriovenous malformation is identified. Procedure Note Maurice Parks MD - 07/14/2021 EXAM: MRI AND MRA BRAIN HISTORY: left ROTARY HELPER infarct, TECHNIQUE: Multiplanar and multisequence MR imaging of the head was performed. This was done without contrast. 3D qtst-ws-hzchrj images of the [place] was [...] are unremarkable. Redemonstration of recent large left ROTARY HELPER territory infarct. There are additional multifocal smaller [...] occlusion/loss of flow void within the left ROTARY HELPER at the level of the mid to distal P2 segment. Portions of the left P3 and P4 segments also show absent flow voids. The anterior, middle, and right posterior cerebral arteries are patent without focal narrowing. No aneurysm or arteriovenous malformation is identified. IMPRESSION MR brain: 1. Redemonstration of recent multifocal cerebral and cerebellar infarcts with a dominant large left ROTARY HELPER territory infarct. This appears represent a combination [...] MRA head: 1. Occlusion of the left ROTARY HELPER at the leve l of the mid to distal P2 segment (corresponding to the large left ROTARY HELPER territory infarct). 2. Otherwise patent major intracranial a rteries without focal stenosis. By my electronic signature, I attest that I have personally reviewed the images for this examination and formulated the interpretations and opinions expressed in this report Performing Organization Address [facility] P dg Number [facility] RAD RESULTS * BLOOD GASES, ARTERIAL (07/13/2021 9:21 PM FIRE DEPARTMENT MARINE ENGINEER) pH-Arterial 7.43 7.35 - 7.45 [facility] pCO2-Arterial 40 35 - 45 MMHG [facility] pO2-Arterial 89 80 - 100 MMHG [facility] Base 2.1 MMOL/L [facility] Excess-Arterial O2 Sat-Arterial 97.3 95 - 99 % [facility] Bicarbonate-ART 26.3 21 - 28 MMOL/L [facility] -Daniel Specimen Blood, arterial - Blood (substance) Performing Organization Address [facility] P dg Number [facility] [address] [place] [address] * LACTIC ACID(LACTATE) (07/13/2021 9:21 PM FIRE DEPARTMENT MARINE ENGINEER) Lactic Acid 0.9 0.5 - 2.0 MMOL/L MAIN LAB Specimen Blood (substance) Performing Organization Address [facility] P dg Number [facility] [address] [place] [address] * IONIZED CALCIUM (07/13/2021 9:21 PM FIRE DEPARTMENT MARINE ENGINEER) Ionized Calcium 1.17 1.0 - 1.3 MMOL/L [facility] Specimen Blood (substance) Performing Organization Address [facility] P dg Number [facility] [address] [place] [address] * PHOSPHORUS (07/13/2021 9:21 PM FIRE DEPARTMENT MARINE ENGINEER) Phosphorus 3.1 2.0 - 4.5 MG/DL [facility] Specimen Blood (substance) Performing Organization Address [facility] P dg Number [facility] [address] [place] [address] * MAGNESIUM (07/13/2021 9:21 PM FIRE DEPARTMENT MARINE ENGINEER) Magnesium 2.5 1.6 - 2.6 mg/dL [facility] Specimen Blood (substance) Performing Organization Address [facility] P dg Number [facility] [address] [place] [address] * (ABNORMAL) BASIC METABOLIC PANEL (07/13/2021 9:21 PM FIRE DEPARTMENT MARINE ENGINEER) Pathologist [facility] Sodium 139 137 - 147 MMOL/L K[facility] [...] equation Specimen Blood (substance) Performing Organization Address [facility] P dg Number [facility] [address] [place] [address] * (ABNORMAL) CBC (07/13/2021 9:21 PM FIRE DEPARTMENT MARINE ENGINEER) Pathologist [facility] White Blood 10.4 4.5 - 11.0 K/UL [...] LAB Specimen Blood (substance) Performing Organization Address [facility] Code P dg Number [facility] [address] [place] [address] * (ABNORMAL) TROPONIN-I (07/13/2021 6:01 PM FIRE DEPARTMENT MARINE ENGINEER) Troponin-I 0.84 (H) 0.0 - 0.05 NG/ML [facility] Specimen Performing Organization Address City/State/ZIP Code P dg Number [facility] [address] [place] [address] * (ABNORMAL) TROPONIN-I (07/13/2021 12:17 PM FIRE DEPARTMENT MARINE ENGINEER) Troponin-I 0.67 (H) 0.0 - 0.05 NG/ML [facility] Specimen Blood (substance) Performing Organization Address City/State/ZIP Code P dg Number [facility] [address] [place] [address] * CT HEAD WO CONTRAST (07/13/2021 11:54 AM FIRE DEPARTMENT MARINE ENGINEER) Modality Anatomical Region Laterality Computed Tomography Head Specimen Impressions [facility] RAD RESULTS - 07/13/2021 12:16 PM FIRE DEPARTMENT MARINE ENGINEER 1. Multifocal acute to subacute appear ing bilateral cerebral and cerebellar infarcts (presumably embolic in etiology) with a dominant moderate to large left ROTARY HELPER territory infarct. 2. No evidence of hemorrhagic conversi on, midline shift, or herniation. Findings were discussed with Dr. Garcia by myself via telephone at 12:13 PM on 07/13/2021. Finalized by Dwaine Vo DO on 07/13/2021 12:16 PM. Dictated by Dwaine Vo DO on 07/13/2021 12:04 PM. Narrative [facility] RESULTS - 07/13/2021 12:16 PM FIRE DEPARTMENT MARINE ENGINEER EXAM: CT HEAD HISTORY: Rule out stroke, visual difficulties. TECHNIQUE: Multiple contiguous axial images were obtained of the brain without intravenous contrast. COMPARISON: None. FINDINGS: Moderate to large focal area of parenchymal hypodensity, pardo-white matter dedifferentiation, and sulcal compression in the left posterior mesial temporal- occipital ROTARY HELPER territory with additional smaller foci of parenchymal hypodensity throughout the bilateral cerebral hemispheres (notably the right caudate, left frontal and parietal cortices, and posterior right occipital lobe), compatible with acute to subacute infarcts. There are also several small age-indeterminate bilateral cerebellar infarcts, the majority of which appear recent. Localize cerebral mass effect associated with the dominant left ROTARY HELPER territory infarct. No evidence of acute intracranial [...] in the left posterior mesial temporal- occipital ROTARY HELPER territory with additional smaller foci of parenchymal hypodensity throughout the bilateral cerebral hemispheres (notably the right caudate, left frontal and parietal cortices, and posterior right occipital lobe), compatible with acute to subacute infarcts. There are also several small age-indeterminate bilateral cerebellar infarcts, the majority of which appear recent. Localize cerebral mass effect associated with the dominant left ROTARY HELPER territory infarct. No evidence of acute intracranial [...] with a dominant moderate to large left ROTARY HELPER territory infarct. 2. No evidence of hemorrhagic [...] DOPPLER ECHO W/ CONTRAST (07/13/2021 8:00 AM FIRE DEPARTMENT MARINE ENGINEER) IVS 0.85 0.6 - 1.0 cm OTHER [...] 34 OTHER OUTSIDE Index LAB Cardiology Siemens [id number] OTHER OUTSIDE Ultrasound LAB Machine Left Ventricle [...] OTHER OUTSIDE LAB - 07/13/2021 8:28 AM FIRE DEPARTMENT MARINE ENGINEER Left Ventricle: The left ventricular size is [...] * CHEST SINGLE VIEW (07/13/2021 7:13 AM FIRE DEPARTMENT MARINE ENGINEER) Modality Anatomical Region Laterality Computed Radiography Chest Specimen Impressions [facility] RESULTS - 07/13/2021 9:23 AM FIRE DEPARTMENT MARINE ENGINEER 1. Persistent tiny lucency within the ri ght lung apex that is suggestive of a tiny pneumothorax. Follow-up inspiration and expiration chest x-ray 2. Unchanged small right pleural effusio n and right lung base consolidation. Finalized by Bernard Sheikh M.D. on 07/13/2021 9:23 AM. Dictated by Bernard Sheikh M.D. on 07/13/2021 9:18 AM. Narrative [facility] RESULTS - 07/13/2021 9:23 AM FIRE DEPARTMENT MARINE ENGINEER CHEST SINGLE VIEW Clinical Indication: R/o PTX. [...] RESULTS * (ABNORMAL) TROPONIN-I (07/13/2021 5:52 AM FIRE DEPARTMENT MARINE ENGINEER) Troponin-I 0.49 (H) 0.0 - 0.05 NG/ML [facility] Specimen Blood (substance) Performing Organization Address City/State/ZIP Code P dg Number MAIN LAB [address] [place] [address] * CHEST SINGLE VIEW (07/13/2021 3:33 AM FIRE DEPARTMENT MARINE ENGINEER) Modality Anatomical Region Laterality Computed Radiography Chest Specimen Addenda Addendum by Maurice Parks MD on 07/13/2021 5:18 AM FIRE DEPARTMENT MARINE ENGINEER Finalized by Maurice Parks M.D. on 07/13/2021 [...] [facility] RAD RESULTS - 07/13/2021 4:25 AM FIRE DEPARTMENT MARINE ENGINEER 1. Mildly low right lung volume with [...] [facility] RAD RESULTS - 07/13/2021 4:25 AM FIRE DEPARTMENT MARINE ENGINEER CHEST SINGLE VIEW INDICATION: Altered mental status. [...] * TRANSFUSE PLASMA (FFP) (07/13/2021 3:12 AM FIRE DEPARTMENT MARINE ENGINEER) * TRANSFUSE PLASMA (FFP) (07/13/2021 3:12 AM FIRE DEPARTMENT MARINE ENGINEER) * AMMONIA (07/13/2021 3:00 AM FIRE DEPARTMENT MARINE ENGINEER) Ammonia 34 9 - 35 MCMOL/L [facility]IN [facility] Specimen Blood (substance) Performing Organization Address City/State/ZIP Code P dg Number [facility]IN [facility] [address] [place] [address] * (ABNORMAL) CBC (07/13/2021 2:42 AM FIRE DEPARTMENT MARINE ENGINEER) White Blood 16.1 (H) 4.5 - 11.0 K/UL [facility]IN [facility] Cells RBC 2.85 (L) 4.4 - 5.5 M/UL [facility] Hemoglobin 8.6 (L) 13.5 - 16.5 GM/DL [facility]IN [facility] Hematocrit 25.3 (L) 40 - 50 % [facility] MCV 88.9 80 - 100 FL [facility] MCH 30.2 26 - 34 PG [facility] MCHC 34.0 32.0 - 36.0 G/DL [facility] RDW 14.2 11 - 15 % [facility] Platelet Count 122 (L) 150 - 400 K/UL [facility] MPV 8.5 7 - 11 FL [facility]IN [facility] Specimen Blood (substance) Performing Organization Address [facility] [facility] P dg Number KU MAIN LAB [address] [phone] * (ABNORMAL) BLOOD GASES, ARTERIAL (07/13/2021 2:32 AM FIRE DEPARTMENT MARINE ENGINEER) pH-Arterial 7.40 7.35 - 7.45 [facility] MAIN LAB pCO2-Arterial 38 35 - 45 MMHG MAIN LAB pO2-Arterial 72 (L) 80 - 100 MMHG KU MAIN LAB Base 0.6 MMOL/L [facility]U MAIN LAB Deficit-Arteria l O2 Sat-Arterial 94.9 (L) 95 - 99 % [facility] MAIN LAB Bicarbonate-ART 23.9 21 - 28 MMOL/L MAIN LAB -Daniel Specimen Blood, arterial - Blood (substance) Performing Organization Address [facility] P dg Number [facility] MAIN [facility] [address] [place] [address] * (ABNORMAL) TROPONIN-I (07/13/2021 1:15 AM FIRE DEPARTMENT MARINE ENGINEER) Troponin-I 0.37 (H) 0.0 - 0.05 NG/ML MAIN LAB Specimen Performing Organization Address [facility] P dg Number [facility] MAIN [facility] [address] [place] [address] * LACTIC ACID(LACTATE) (07/13/2021 1:15 AM FIRE DEPARTMENT MARINE ENGINEER) Lactic Acid 1.3 0.5 - 2.0 MMOL/L MAIN LAB Specimen Blood (substance) Performing Organization Address [facility] P dg Number [facility] MAIN [facility] [address] [phone] * (ABNORMAL) PHOSPHORUS (07/13/2021 1:15 AM FIRE DEPARTMENT MARINE ENGINEER) Phosphorus 5.7 (H) 2.0 - 4.5 MG/DL MAIN LAB Specimen Blood (substance) Performing Organization Address [facility]/ZIP Code P dg Number [facility] MAIN [facility] [address] [place] [address] * MAGNESIUM (07/13/2021 1:15 AM FIRE DEPARTMENT MARINE ENGINEER) Pathologist [facility] Magnesium 2.5 1.6 - 2.6 mg/dL [facility] MAIN LAB Specimen Blood (substance) Performing Organization Address [facility] P dg Number [facility] MAIN [facility] [address] [place] [address] * (ABNORMAL) CBC (07/13/2021 1:15 AM FIRE DEPARTMENT MARINE ENGINEER) White Blood 18.3 (H) 4.5 - 11.0 [...] LAB Specimen Blood (substance) Performing Organization Address [facility] P dg Number [facility] MAIN [facility] [address] [place] [address] * (ABNORMAL) BASIC METABOLIC PANEL (07/13/2021 1:15 AM FIRE DEPARTMENT MARINE ENGINEER) Pathologist [facility] Sodium 141 137 - 147 MMOL/L KU [...] equation Specimen Blood (substance) Performing Organization Address [facility]/ZIP Code P dg Number [facility] MAIN [facility] [address] [place] [address] * TEG WITH KAOLIN (07/13/2021 1:15 AM FIRE DEPARTMENT MARINE ENGINEER) MA Kaolin 60.6 >49.9 MM REFERENCE LAB R Kaolin 3.1 <9.1 MIN REFERENCE LAB RK Kaolin 4.5 <12.1 MIN REFERENCE LAB K Kaolin 1.4 <3.1 MIN REFERENCE LAB Angle Kaolin 70.2 >54.9 DEG REFERENCE LAB Lysis30 0.0 <8.1 % REFERENCE LAB Specimen Blood (substance) Performing Organization Address [facility] P dg Number REFERENCE LAB REFERENCE LAB See results for address. * IONIZED CALCIUM (07/13/2021 1:15 AM FIRE DEPARTMENT MARINE ENGINEER) Ionized Calcium 1.09 1.0 - 1.3 MMOL/L [facility] MAIN [facility] Specimen Blood (substance) Performing Organization Address [facility] P dg Number [facility] MAIN [facility] [address] [place] [address] * TRANSFUSE PLASMA (FFP) (07/13/2021 12:51 AM FIRE DEPARTMENT MARINE ENGINEER) * TRANSFUSE PLASMA (FFP) (07/13/2021 12:51 AM FIRE DEPARTMENT MARINE ENGINEER) * TRANSFUSE CRYOPRECIPITATE (07/13/2021 12:34 AM FIRE DEPARTMENT MARINE ENGINEER) * TRANSFUSE CRYOPRECIPITATE (07/13/2021 12:34 AM FIRE DEPARTMENT MARINE ENGINEER) * PREPARE PLASMA (FFP) (07/13/2021 12:11 AM FIRE DEPARTMENT MARINE ENGINEER) Pathologist [facility] Units Ordered 2 [facility] MAIN LAB Unit Number [id number] [facility] MAIN [facility] Blood Component THAWED PLASMA [facility] MAIN [facility] Type Unit Division 00 [facility] MAIN LAB Status OF Unit TRANSFUSED KU MAIN LAB ISSUE DATE TIME KU MAIN LAB PRODUCT CODE U8912Y44 [facility] MAIN LAB BLOOD TYPE B POS [facility]U MAIN [facility] CODING STATUS 7300 KU MAIN LAB BLOOD [id number] KU MAIN LAB EXPIRATION DATE Transfusion OK TO TRANSFUSE KU MAIN LAB Status Unit Number [id number] [facility] MAIN [facility] Blood Component APHERESIS PLASMA THAWED [facility] MAIN [facility] Type Unit Division 00 [facility]U MAIN LAB Status OF Unit TRANSFUSED KU MAIN LAB ISSUE DATE TIME KU MAIN LAB PRODUCT CODE [id number] [facility] MAIN LAB BLOOD TYPE B POS [facility]U MAIN LAB CODING STATUS 7300 K[facility] MAIN LAB BLOOD [id number] MAIN LAB EXPIRATION DATE Transfusion OK TO TRANSFUSE [facility]U MAIN LAB Status Specimen Other (Specify) Performing Organization Address [facility]/ZIP Code P dg Number [facility] MAIN [facility] [address] [place] [address] * TRANSFUSE APHERESIS PLATELETS (07/13/2021 12:07 AM FIRE DEPARTMENT MARINE ENGINEER) * TRANSFUSE APHERESIS PLATELETS (07/13/2021 12:07 AM FIRE DEPARTMENT MARINE ENGINEER) * TRANSFUSE RBC'S (07/12/2021 11:29 PM FIRE DEPARTMENT MARINE ENGINEER) Specimen Blood (substance) * TRANSFUSE RBC'S (07/12/2021 11:29 PM FIRE DEPARTMENT MARINE ENGINEER) Specimen Blood (substance) * TRANSFUSE RBC'S (07/12/2021 11:28 PM FIRE DEPARTMENT MARINE ENGINEER) Specimen Blood (substance) * TRANSFUSE RBC'S (07/12/2021 11:28 PM FIRE DEPARTMENT MARINE ENGINEER) Specimen Blood (substance) * (ABNORMAL) CBC (07/12/2021 10:50 PM FIRE DEPARTMENT MARINE ENGINEER) White Blood 22.2 (H) 4.5 - 11.0 K/UL MAIN LAB Cells RBC 3.34 (L) 4.4 - 5.5 M/UL MAIN LAB Hemoglobin 10.2 (L) 13.5 - 16.5 GM/DL MAIN LAB Hematocrit 30.3 (L) 40 - 50 % MAIN LAB MCV 90.5 80 - 100 FL MAIN LAB MCH 30.4 26 - 34 PG MAIN LAB MCHC 33.6 32.0 - 36.0 G/DL MAIN LAB RDW 14.0 11 - 15 % MAIN LAB Platelet Count 111 (L) 150 - 400 K/UL MAIN LAB MPV 8.5 7 - 11 FL MAIN LAB Specimen Blood (substance) Performing Organization Address City/State/ZIP Code P dg Number MAIN LAB [address] [place] [address] * PREPARE APHERESIS PLATELETS (07/12/2021 10:20 PM FIRE DEPARTMENT MARINE ENGINEER) Units Ordered 1 MAIN LAB Unit Number [id number] MAIN LAB Blood Component APHERESIS PLT,LEUKO REDUCED, [facility] MAIN LAB Type BACTERIAL MONITOR 7D, IRRADIATED,2ND CONT Unit Division 00 MAIN LAB Status OF Unit TRANSFUSED MAIN LAB ISSUE DATE TIME KU MAIN LAB PRODUCT CODE [id number] [facility] MAIN LAB BLOOD TYPE A NEG [facility] MAIN [facility] CODING STATUS 0600 [facility] MAIN [facility] BLOOD [id number] [facility] MAIN LAB EXPIRATION DATE Transfusion OK TO TRANSFUSE MAIN LAB Status Specimen Other (Specify) Performing Organization Address [facility] P dg Number MAIN LAB [address] [place] [address] * PREPARE CRYOPRECIPITATE (07/12/2021 9:55 PM FIRE DEPARTMENT MARINE ENGINEER) Units Ordered 1 MAIN LAB Unit Number [id number] [facility] MAIN LAB Blood Component CRY 5 POOLED [facility] MAIN LAB Type Unit Division 00 MAIN LAB Status OF Unit TRANSFUSED MAIN LAB ISSUE DATE TIME MAIN LAB PRODUCT CODE [id number] MAIN LAB BLOOD TYPE O POS MAIN LAB CODING STATUS 5100 MAIN LAB BLOOD [id number] MAIN LAB EXPIRATION DATE Transfusion OK TO TRANSFUSE MAIN LAB Status Specimen Other (Specify) Performing Organization Address [facility] P dg Number MAIN LAB [address] [place] [address] * (ABNORMAL) TEG WITH KAOLIN (07/12/2021 9:15 PM FIRE DEPARTMENT MARINE ENGINEER) MA Kaolin 44.2 (L) >49.9 MM REFERENCE LAB R Kaolin 3.2 <9.1 MIN REFERENCE LAB RK Kaolin 7.4 <12.1 MIN REFERENCE LAB K Kaolin 4.2 (H) <3.1 MIN REFERENCE LAB Angle Kaolin 48.0 (L) >54.9 DEG REFERENCE LAB Lysis30 0.0 <8.1 % REFERENCE LAB Specimen Blood (substance) Performing Organization Address [facility]/ZIP [facility] P dg Number REFERENCE LAB REFERENCE LAB See results for address. * IONIZED CALCIUM (07/12/2021 9:15 PM FIRE DEPARTMENT MARINE ENGINEER) Ionized Calcium 1.02 1.0 - 1.3 MMOL/L MAIN LAB Specimen Blood (substance) Performing Organization Address [facility] P dg Number MAIN LAB [address] [place] [address] * (ABNORMAL) PHOSPHORUS (07/12/2021 9:15 PM FIRE DEPARTMENT MARINE ENGINEER) Phosphorus 5.6 (H) 2.0 - 4.5 MG/DL [facility] MAIN LAB Specimen Blood (substance) Performing Organization Address City/[facility] Code P dg Number [facility] MAIN [facility] [address] [place] [address] * MAGNESIUM (07/12/2021 9:15 PM FIRE DEPARTMENT MARINE ENGINEER) Magnesium 2.5 1.6 - 2.6 mg/dL [facility] MAIN LAB Specimen Blood (substance) Performing Organization Address [facility] Code P dg Number [facility] MAIN [facility] [address] [phone] * (ABNORMAL) COMPREHENSIVE METABOLIC PANEL (07/12/2021 9:15 PM FIRE DEPARTMENT MARINE ENGINEER) Sodium 141 137 - 147 MMOL/L KU [...] eGFR 41 (L)Comment: eGFR calculated >60 mL/min [facility] MAIN [facility] using the CKD-EPIcr_R equation Specimen Blood (substance) Performing Organization Address [facility] Code P dg Number [facility] MAIN [facility] [address] [phone] * (ABNORMAL) CBC (07/12/2021 9:15 PM FIRE DEPARTMENT MARINE ENGINEER) White Blood 21.4 (H) 4.5 - 11.0 [...] LAB Specimen Blood (substance) Performing Organization Address City/[facility]/ZIP Code P dg Number MAIN LAB [address] [phone] * (ABNORMAL) POC GLUCOSE (07/12/2021 8:51 PM FIRE DEPARTMENT MARINE ENGINEER) Glucose, POC 116 (H) 70 - 100 MG/DL MAIN LAB Specimen Performing Organization Address [facility] Code P dg Number MAIN LAB [address] [phone] * (ABNORMAL) POC SODIUM (07/12/2021 8:50 PM FIRE DEPARTMENT MARINE ENGINEER) Sodium-POC 136 (L) 137 - 147 MMOL/L MAIN LAB Specimen Performing Organization Address [facility] Code P dg Number MAIN LAB [address] [place] [address] * POC POTASSIUM (07/12/2021 8:50 PM FIRE DEPARTMENT MARINE ENGINEER) Potassium-POC 5.0 3.5 - 5.1 MMOL/L MAIN LAB Specimen Performing Organization Address [facility] Code P dg Number MAIN LAB [address] [place] [address] * (ABNORMAL) POC HEMATOCRIT (07/12/2021 8:50 PM FIRE DEPARTMENT MARINE ENGINEER) Hemoglobin POC 7.8 (L) 13.5 - 16.5 GM/DL MAIN LAB Hematocrit POC 23.0 (L) 40 - 50 % [facility] MAIN LAB Specimen Performing Organization Address [facility] Code P dg Number MAIN LAB [address] [place] [address] * (ABNORMAL) POC BLOOD GAS ARTERIAL (07/12/2021 8:50 PM FIRE DEPARTMENT MARINE ENGINEER) PH-ART-POC 7.39 7.35 - 7.45 K[facility] MAIN LAB AXX0-LRJ-RKP 32 (L) 35 - 45 MMHG [facility] MAIN [facility] PO2-ART-POC 103 (H) 80 - 100 MMHG K[facility] MAIN LAB Base 6.0 MMOL/L [facility] MAIN [facility] Def-ART-POC O2 Sat-ART-POC 98.0 95 - 99 % [facility] MAIN [facility] Bicarbonate-ART 19.1 (L) 21 - 28 MMOL/L [facility] MAIN LAB -POC Specimen Performing Organization Address City/State/ZIP Code P dg Number MAIN LAB [address] [place] [address] * TYPE & CROSSMATCH (07/12/2021 11:45 AM FIRE DEPARTMENT MARINE ENGINEER) Units Ordered 3 [facility] MAIN LAB Crossmatch 07/15/2021,2359 [facility] MAIN [facility] Expires Record Check FOUND [facility] MAIN LAB ABO/RH(D) O NEG MAIN LAB Antibody Screen NEG [facility] MAIN [facility] Electronic YES [facility] MAIN LAB Crossmatch Unit Number [id number] MAIN LAB Blood Component RBC,ADSOL,LEUKO REDUCED,2ND KU MAIN L AB Type CONT. Unit Division 00 KU MAIN LAB Status OF Unit TRANSFUSED [facility]U MAIN LAB ISSUE DATE TIME KU MAIN LAB PRODUCT CODE [id number] [facility] MAIN LAB BLOOD TYPE O NEG MAIN LAB CODING STATUS 9500 KU MAIN LAB BLOOD [id number] K[facility] MAIN LAB EXPIRATION DATE Transfusion OK TO TRANSFUSE [facility]U MAIN LAB Status Crossmatch COMPATIBLE,ELECTRONIC [facility] MAIN LAB Result Unit Number [id number] MAIN LAB Blood Component RBC,ADSOL,LEUKO REDUCED,2ND KU MAIN L AB Type CONT. Unit Division 00 KU MAIN LAB Status OF Unit TRANSFUSED [facility]U MAIN LAB ISSUE DATE TIME KU MAIN LAB PRODUCT CODE [id number] [facility] MAIN LAB BLOOD TYPE O NEG KU MAIN LAB CODING STATUS 9500 KU MAIN LAB BLOOD 921200222180 MAIN LAB EXPIRATION DATE Transfusion OK TO TRANSFUSE [facility]U MAIN LAB Status Crossmatch COMPATIBLE,ELECTRONIC MAIN LAB Result Unit Number [id number] MAIN LAB Blood Component RBC,ADSOL,LEUKO REDUCED,2ND KU MAIN L AB Type CONT. Unit Division 00 MAIN LAB Status OF Unit TRANSFUSED MAIN LAB ISSUE DATE TIME [facility]U MAIN LAB PRODUCT CODE [id number] [facility] MAIN LAB BLOOD TYPE O NEG KU MAIN LAB CODING STATUS 9500 KU MAIN LAB BLOOD [id number] KU MAIN LAB EXPIRATION DATE Transfusion OK TO TRANSFUSE KU MAIN LAB Status Crossmatch COMPATIBLE,ELECTRONIC [facility] MAIN LAB Result Specimen Performing Organization Address City/State/ZIP Code P gd Number MAIN LAB [address] [place] [address] * TELEMETRY STRIPS-SCAN (07/12/2021 12:00 AM FIRE DEPARTMENT MARINE ENGINEER) Narrative 07/12/2021 12:00 AM FIRE DEPARTMENT MARINE ENGINEER Ordered by an unspecified provider. * ECG-SCAN (07/12/2021 12:00 AM FIRE DEPARTMENT MARINE ENGINEER) Narrative 07/12/2021 12:00 AM FIRE DEPARTMENT MARINE ENGINEER Ordered by an unspecified provider. * ECG-SCAN (07/12/2021 12:00 AM FIRE DEPARTMENT MARINE ENGINEER) Narrative 07/12/2021 12:00 AM FIRE DEPARTMENT MARINE ENGINEER Ordered by an unspecified provider. 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 Malignant neoplasm of urinary bladder, unspecified site (HCC) * Advanced Care Planning/Resuscitation Status - Keanu Shepherd DO - 07/12/2021 10:40 PM FIRE DEPARTMENT MARINE ENGINEER Advance Care Planning/Resuscitation Status Conversation Individuals present [...] patient/surrogate wishes: None Keanu Shepherd DO [id number] DEPARTMENT MARINE ENGINEER documented in this encounter Admitting Diagnoses Diagnosis Colon obstruction (HCC) Unspecified intestinal obstruction documented in this encounter Administered Medications Action Date Dose Rate Site Medication Order MAR Action 07/20/2021 8:53 AM FIRE DEPARTMENT MARINE ENGINEER 81 mg aspirin EC tablet 81 mg Given 81 mg, Oral, DAILY, First dose on Mon07/13/21 at 1845, Until Discontinued 81 mg Given 07/19/2021 8:07 AM FIRE DEPARTMENT MARINE ENGINEER 81 mg Given 07/18/2021 8:25 AM FIRE DEPARTMENT MARINE ENGINEER 81 mg Given 07/17/2021 9:12 AM FIRE DEPARTMENT MARINE ENGINEER 81 mg Given 07/16/2021 8:00 AM FIRE DEPARTMENT MARINE ENGINEER 81 mg Given 07/15/2021 8:19 AM FIRE DEPARTMENT MARINE ENGINEER 81 mg Given 07/14/2021 8:49 AM FIRE DEPARTMENT MARINE ENGINEER 81 mg Given 07/13/2021 6:12 PM FIRE DEPARTMENT MARINE ENGINEER 07/20/2021 8:50 AM FIRE DEPARTMENT MARINE ENGINEER 25 mg atenoloL (TENORMIN) tablet 25 mg Given 25 mg, Oral, EVERY MORNING, First dose on Mon07/13/21 at 0800, Until Discontinued, Hold for heart rate < 60 bpm or SBP <100 25 mg Given 07/19/2021 8:07 AM FIRE DEPARTMENT MARINE ENGINEER 25 mg Given 07/18/2021 8:25 AM FIRE DEPARTMENT MARINE ENGINEER 07/20/2021 8:50 AM FIRE DEPARTMENT MARINE ENGINEER 40 mg atorvastatin (LIPITOR) tablet 40 mg Given 40 mg, Oral, DAILY, First dose on Mon07/13/21 at 2130, Until Discontinued 40 mg Given 07/19/2021 8:07 AM FIRE DEPARTMENT MARINE ENGINEER 40 mg Given 07/18/2021 8:25 AM FIRE DEPARTMENT MARINE ENGINEER 40 mg Given 07/17/2021 9:12 AM FIRE DEPARTMENT MARINE ENGINEER 40 mg Given 07/16/2021 8:00 AM FIRE DEPARTMENT MARINE ENGINEER 40 mg Given 07/15/2021 8:19 AM FIRE DEPARTMENT MARINE ENGINEER 40 mg Given 07/14/2021 8:49 AM FIRE DEPARTMENT MARINE ENGINEER 40 mg Given 07/13/2021 9:37 PM FIRE DEPARTMENT MARINE ENGINEER 07/20/2021 8:52 AM FIRE DEPARTMENT MARINE ENGINEER 1 drop brimonidine (ALPHAGAN) 0.2 % ophthalmic Given solution 1 drop 1 drop, Both Eyes, TWICE DAILY, First dose on Mon07/15/21 at 1100, Until Discontinued 1 drop Given 07/19/2021 9:28 PM FIRE DEPARTMENT MARINE ENGINEER 1 drop Given 07/19/2021 8:08 AM FIRE DEPARTMENT MARINE ENGINEER 1 drop Given 07/18/2021 8:43 PM FIRE DEPARTMENT MARINE ENGINEER 1 drop Given 07/18/2021 8:31 AM FIRE DEPARTMENT MARINE ENGINEER 1 drop Given 07/17/2021 9:18 PM FIRE DEPARTMENT MARINE ENGINEER 1 drop Given 07/17/2021 9:13 AM FIRE DEPARTMENT MARINE ENGINEER 1 drop Given 07/16/2021 8:22 PM FIRE DEPARTMENT MARINE ENGINEER 1 drop Given 07/16/2021 8:00 AM FIRE DEPARTMENT MARINE ENGINEER 1 drop Given 07/15/2021 9:10 PM FIRE DEPARTMENT MARINE ENGINEER 1 drop Given 07/15/2021 11:10 AM FIRE DEPARTMENT MARINE ENGINEER 07/20/2021 11:33 AM FIRE DEPARTMENT MARINE ENGINEER 500 mg calcium carbonate (TUMS) chew tablet 500 Given mg 500 mg, Oral, EVERY 4 HOURS PRN, Starting on 07/17/21 at 2055, Until 07/20/21 at 1235, Indigestion/Heartburn, Each 500 mg tab delivers 200 mg elemental calcium 500 mg Given 07/19/2021 3:37 PM FIRE DEPARTMENT MARINE ENGINEER 500 mg Given 07/18/2021 2:34 PM FIRE DEPARTMENT MARINE ENGINEER 500 mg Given 07/18/2021 10:37 AM FIRE DEPARTMENT MARINE ENGINEER 500 mg Given 07/18/2021 3:12 AM FIRE DEPARTMENT MARINE ENGINEER 500 mg Given 07/17/2021 9:16 PM FIRE DEPARTMENT MARINE ENGINEER 07/20/2021 8:53 AM FIRE DEPARTMENT MARINE ENGINEER 1 drop dorzolamide (TRUSOPT) 2 % ophthalmic Given solution 1 drop 1 drop, Right Eye, TWICE DAILY, First dose on Kim 07/15/21 at 1115, Until Discontinued, Give with timolol to equa l Cosopt. 1 drop Given 07/19/2021 9:29 PM FIRE DEPARTMENT MARINE ENGINEER 1 drop Given 07/19/2021 8:08 AM FIRE DEPARTMENT MARINE ENGINEER 1 drop Given 07/18/2021 8:45 PM FIRE DEPARTMENT MARINE ENGINEER 1 drop Given 07/18/2021 8:31 AM FIRE DEPARTMENT MARINE ENGINEER 1 drop Given 07/17/2021 9:18 PM FIRE DEPARTMENT MARINE ENGINEER 1 drop Given 07/17/2021 9:13 AM FIRE DEPARTMENT MARINE ENGINEER 1 drop Given 07/16/2021 8:22 PM FIRE DEPARTMENT MARINE ENGINEER 1 drop Given 07/16/2021 8:00 AM FIRE DEPARTMENT MARINE ENGINEER 1 drop Given 07/15/2021 9:10 PM FIRE DEPARTMENT MARINE ENGINEER 1 drop Given 07/15/2021 11:16 AM FIRE DEPARTMENT MARINE ENGINEER 07/20/2021 8:49 AM FIRE DEPARTMENT MARINE ENGINEER 20 mg famotidine (PEPCID) tablet 20 mg Given 20 mg, Oral, DAILY, First dose on Mon07/12/21 at 1645, Until Discontinued 20 mg Given 07/19/2021 8:07 AM FIRE DEPARTMENT MARINE ENGINEER 20 mg Given 07/18/2021 8:25 AM FIRE DEPARTMENT MARINE ENGINEER 20 mg Given 07/17/2021 9:12 AM FIRE DEPARTMENT MARINE ENGINEER 20 mg Given 07/16/2021 8:00 AM FIRE DEPARTMENT MARINE ENGINEER 20 mg Given 07/15/2021 8:19 AM FIRE DEPARTMENT MARINE ENGINEER 20 mg Given 07/14/2021 8:50 AM FIRE DEPARTMENT MARINE ENGINEER 20 mg Given 07/13/2021 8:32 AM FIRE DEPARTMENT MARINE ENGINEER 07/20/2021 6:07 AM FIRE DEPARTMENT MARINE ENGINEER 5,000 Units Abdomina l Tissue heparin (porcine) PF syringe 5,000 Units Given 5,000 Units, Subcutaneous, EVERY 8 HOURS, First dose on Mon07/13/21 at 1745, Until Discontinued, NOTE: This is a HIGH ALERT Medication. 5,000 Units Abdomen:LLQ Given 07/19/2021 9:32 PM FIRE DEPARTMENT MARINE ENGINEER 5,000 Units Arm, Right Given 07/19/2021 2:08 PM FIRE DEPARTMENT MARINE ENGINEER 5,000 Units Abdominal Tissue Given 07/19/2021 6:30 AM FIRE DEPARTMENT MARINE ENGINEER 5,000 Units Arm, Right Given 07/18/2021 8:48 PM FIRE DEPARTMENT MARINE ENGINEER 5,000 Units Arm, Right Given 07/18/2021 2:34 PM FIRE DEPARTMENT MARINE ENGINEER 5,000 Units Arm, Right Given 07/18/2021 6:53 AM FIRE DEPARTMENT MARINE ENGINEER 5,000 Units Arm, Right Given 07/17/2021 9:16 PM FIRE DEPARTMENT MARINE ENGINEER 5,000 Units Abdominal Tissue Given 07/17/2021 1:14 PM FIRE DEPARTMENT MARINE ENGINEER 5,000 Units Abdomen:RLQ Given 07/17/2021 6:34 AM FIRE DEPARTMENT MARINE ENGINEER 5,000 Units Arm, Left Given 07/16/2021 9:28 PM FIRE DEPARTMENT MARINE ENGINEER 5,000 Units Abdominal Tissue Given 07/16/2021 1:59 PM FIRE DEPARTMENT MARINE ENGINEER 5,000 Units Abdomen:RLQ Given 07/16/2021 6:22 AM FIRE DEPARTMENT MARINE ENGINEER 5,000 Units Abdomen:RLQ Given 07/15/2021 9:10 PM FIRE DEPARTMENT MARINE ENGINEER 5,000 Units Abdominal Tissue Given 07/15/2021 1:49 PM FIRE DEPARTMENT MARINE ENGINEER 5,000 Units Abdominal Tissue Given 07/15/2021 6:38 AM FIRE DEPARTMENT MARINE ENGINEER 5,000 Units Abdominal Tissue Given 07/14/2021 9:00 PM FIRE DEPARTMENT MARINE ENGINEER 5,000 Units Abdomen:RLQ Given 07/14/2021 2:07 PM FIRE DEPARTMENT MARINE ENGINEER 5,000 Units Arm, Left Given 07/14/2021 5:47 AM FIRE DEPARTMENT MARINE ENGINEER 5,000 Units Abdominal Tissue Given 07/13/2021 9:26 PM FIRE DEPARTMENT MARINE ENGINEER 5,000 Units Abdominal Tissue Given 07/13/2021 6:12 PM FIRE DEPARTMENT MARINE ENGINEER 07/20/2021 8:53 AM FIRE DEPARTMENT MARINE ENGINEER 1 drop ketorolac (ACULAR) 0.5 % ophthalmic Given solution 1 drop 1 drop, Right Eye, FOUR TIMES DAILY, First dose on Mon07/15/21 at 1300, Unti l Discontinued 1 drop Given 07/19/2021 9:00 PM FIRE DEPARTMENT MARINE ENGINEER 1 drop Given 07/19/2021 4:52 PM FIRE DEPARTMENT MARINE ENGINEER 1 drop Given 07/19/2021 12:38 PM FIRE DEPARTMENT MARINE ENGINEER 1 drop Given 07/19/2021 8:40 AM FIRE DEPARTMENT MARINE ENGINEER 1 drop Given 07/18/2021 8:42 PM FIRE DEPARTMENT MARINE ENGINEER 1 drop Given 07/18/2021 5:00 PM FIRE DEPARTMENT MARINE ENGINEER 1 drop Given 07/18/2021 2:34 PM FIRE DEPARTMENT MARINE ENGINEER 1 drop Given 07/18/2021 8:41 AM FIRE DEPARTMENT MARINE ENGINEER 1 drop Given 07/17/2021 9:17 PM FIRE DEPARTMENT MARINE ENGINEER 1 drop Given 07/17/2021 6:00 PM FIRE DEPARTMENT MARINE ENGINEER 1 drop Given 07/17/2021 1:13 PM FIRE DEPARTMENT MARINE ENGINEER 1 drop Given 07/17/2021 9:15 AM FIRE DEPARTMENT MARINE ENGINEER 1 drop Given 07/16/2021 8:23 PM FIRE DEPARTMENT MARINE ENGINEER 1 drop Given 07/16/2021 4:48 PM FIRE DEPARTMENT MARINE ENGINEER 1 drop Given 07/16/2021 12:25 PM FIRE DEPARTMENT MARINE ENGINEER 1 drop Given 07/16/2021 8:00 AM FIRE DEPARTMENT MARINE ENGINEER 1 drop Given 07/15/2021 9:10 PM FIRE DEPARTMENT MARINE ENGINEER 1 drop Given 07/15/2021 4:02 PM FIRE DEPARTMENT MARINE ENGINEER 1 drop Given 07/15/2021 1:49 PM FIRE DEPARTMENT MARINE ENGINEER 07/19/2021 9:30 PM FIRE DEPARTMENT MARINE ENGINEER 1 drop latanoprost (XALATAN) 0.005 % ophthalmic Given solution 1 drop 1 drop, Right Eye, AT BEDTIME DAILY, First dose on Mon07/15/21 at 2100, Unti l Discontinued, AFTER BREAKING TAMPER EVIDENT SEAL [CLEAR LID], THROW AWAY TH E CLEAR LID LEAVING THE COLORED LID. DO NOT PUT THE CLEAR LID BACK OVER THE COLORED LID. 1 drop Given 07/18/2021 8:44 PM FIRE DEPARTMENT MARINE ENGINEER 1 drop Given 07/17/2021 9:20 PM FIRE DEPARTMENT MARINE ENGINEER 1 drop Given 07/16/2021 8:23 PM FIRE DEPARTMENT MARINE ENGINEER 1 drop Given 07/15/2021 9:10 PM FIRE DEPARTMENT MARINE ENGINEER 07/20/2021 8:56 AM FIRE DEPARTMENT MARINE ENGINEER 200 mg megestroL (MEGACE) oral suspension 200 Given mg 200 mg, Oral, DAILY, First dose on 07/19/21 at 0915, Until Discontinued, NOTE: This is a HIGH ALERT Medication. 200 mg Given 07/19/2021 10:08 AM FIRE DEPARTMENT MARINE ENGINEER 07/19/2021 9:28 PM FIRE DEPARTMENT MARINE ENGINEER 1 drop netarsudiL (RHOPRESSA) 0.02 % soln Given ++patient own supply++ 1 drop, Right Eye, AT BEDTIME DAILY, First dose on Mon07/16/21 at 2100, Unti l Discontinued, ++patient own supply++ 1 drop Given 07/18/2021 8:45 PM FIRE DEPARTMENT MARINE ENGINEER 1 drop Given 07/17/2021 9:17 PM FIRE DEPARTMENT MARINE ENGINEER 1 drop Given 07/16/2021 8:22 PM FIRE DEPARTMENT MARINE ENGINEER 07/19/2021 9:32 PM FIRE DEPARTMENT MARINE ENGINEER 8 mg ondansetron (ZOFRAN) injection 8 mg Given 8 mg, Intravenous, EVERY 6 HOURS PRN, Starting on Mon07/14/21 at 1111, Until Mon07/20/21 at 1235, Nausea/Vomiting Injectable 8 mg Given 07/19/2021 8:17 AM FIRE DEPARTMENT MARINE ENGINEER 8 mg Given 07/18/2021 7:29 PM FIRE DEPARTMENT MARINE ENGINEER 8 mg Given 07/17/2021 10:58 AM FIRE DEPARTMENT MARINE ENGINEER 07/20/2021 8:52 AM FIRE DEPARTMENT MARINE ENGINEER 1 drop timoloL maleate (TIMOPTIC) 0.5 % Given ophthalmic drops 1 drop 1 drop, Right Eye, TWICE DAILY, First dose on Mon07/15/21 at 1115, Until Discontinued, Give with dorzolamide to equal Cosopt 1 drop Given 07/19/2021 9:30 PM FIRE DEPARTMENT MARINE ENGINEER 1 drop Given 07/19/2021 8:08 AM FIRE DEPARTMENT MARINE ENGINEER 1 drop Given 07/18/2021 8:44 PM FIRE DEPARTMENT MARINE ENGINEER 1 drop Given 07/18/2021 8:31 AM FIRE DEPARTMENT MARINE ENGINEER 1 drop Given 07/17/2021 9:18 PM FIRE DEPARTMENT MARINE ENGINEER 1 drop Given 07/17/2021 9:13 AM FIRE DEPARTMENT MARINE ENGINEER 1 drop Given 07/16/2021 8:23 PM FIRE DEPARTMENT MARINE ENGINEER 1 drop Given 07/16/2021 8:00 AM FIRE DEPARTMENT MARINE ENGINEER 1 drop Given 07/15/2021 9:10 PM FIRE DEPARTMENT MARINE ENGINEER 1 drop Given 07/15/2021 11:21 AM FIRE DEPARTMENT MARINE ENGINEER documented in this encounter Discontinued Medications Start Date End Date Medication Sig Discontinue Reason 06/22/2021 07/13/2021 colestipoL (COLESTID) 1 Removed from gram tablet MANAGER PMO Med List 07/13/2021 hydrocortisone acetate Insert or Removed from (ANUSOL-HC) 25 mg rectal Apply 25 mg MANAGER PMO Med List suppository to rectal area as directed every 12 hours. 04/30/2021 07/13/2021 ondansetron (ZOFRAN ODT) Dissolve one Removed from 4 mg rapid dissolve tablet by MANAGER PMO Med List tablet mouth every 6 hours as needed for Nausea or Vomiting. Place on tongue to dissolve. 04/30/2021 07/13/2021 oxyCODONE (ROXICODONE) 5 Take one Removed from mg tablet tablet by MANAGER PMO Med List mouth every 6 hours as [...] Recently Administered Medications Times are shown in FIRE DEPARTMENT MARINE ENGINEER. 07/19/2021 07/20/2021 Medication Order 07/18/2021 0807 (Given - Provider: Zack Eugene RN ) 0853 (Given - Provider: Dena Cotton, RN ) aspirin EC tablet 81 mg 0825 (Given - 81 mg, Oral, DAILY, First dose on Mon Provider: Avelina knight 07/13/21 at 1845, Until Discontinued ERNST Aguirre) 0807 (Given - Provider: Zack Eugene RN ) 0850 (Given - Provider: Dena Cotton, ERNST ) atenoloL (TENORMIN) tablet 25 mg 0711 (Unheld by 25 mg, Oral, EVERY MORNING, First dose Provider - Pr ovider: on Mon07/13/21 at 0800, Until Mar William, Discontinued, Hold for heart rate < 60 MD)0825 (Give n - bpm or SBP <100 Provider: Humberto Aguirre RN) 0807 (Given - Provider: Zack Eugene RN ) 0850 (Given - Provider: Dena Cotton, ERNST ) atorvastatin (LIPITOR) tablet 40 mg 0825 [...] 1 drop, Both Eyes, TWICE DAILY, First ERNST Aguirre)2042 (Given dose on Mon07/15/21 at 1100, Until - Provider: Randa e Discontinued Early, RN) 0808 (Given - Provider: Zack Eugene RN )2128 (Given - Provider: Ana Rosenberg RN) 0853 (Given - Provider: Dena Cotton RN ) dorzolamide (TRUSOPT) 2 % ophthalmic 0831 (Given - solution 1 drop(Linked Group 1) Provider: Humberto 1 drop, Right Eye, TWICE DAILY, First ERNST Aguirre)2044 (Given dose on Mon07/15/21 at 1115, Until - Provider: Randa e Discontinued, Give with timolol to equal Early, RN) Cosopt. 0807 (Given - Provider: Zack Eugene RN ) 0849 (Given - Provider: Dena Cotton RN ) famotidine (PEPCID) tablet 20 mg 0825 (Given - 20 mg, Oral, DAILY, First dose on Mon Provider: Avelina knight 07/12/21 at 1645, Until Discontinued ERNST Aguirre) 0630 (Given - Provider: Matt Cox , ERNST)1408 (Given - Provider: Victoria Gutierrez RN)213 (Given - Provider: Ana Rosenberg, ERNST) 06 (Given - Provider: Saadia Mirza RN) heparin (porcine) PF syringe 5,000 Units 0653 (Given - 5,000 Units, Subcutaneous, EVERY 8 Provider: Simon Covarrubias, First dose on Mon07/13/21 at ERNST Durham)1434 (G iven 1745, Until Discontinued, NOTE: This is - Provider: Humberto a HIGH ALERT Medication. ERNST Aguirre)2048 (Given - Provider: Sierra Morales RN)2142 (Planned Hold - Provider: Sierra Mroales RN) 0840 (Given - Provider: Zack Eugene [...] Aguirre RN)1700 (Given - Provider: Humberto Aguirre RN)2042 (Given - Provider: Sierra Morales RN) 2130 (Given - Provider: Ana Rosenberg, ERNST ) latanoprost (XALATAN) 0.005 % ophthalmic 2044 (Given - solution 1 drop Provider: Sierra 1 drop, Right Eye, AT BEDTIME DAILY, Andrew, RN) First dose on Kim 07/15/21 at 2100, Unti l Discontinued, AFTER BREAKING TAMPER EVIDENT SEAL [CLEAR LID], THROW AWAY TH E CLEAR LID LEAVING THE COLORED LID. DO NOT PUT THE CLEAR LID BACK OVER THE COLORED LID. 1008 (Given - Provider: Zack Eugene RN ) 0856 (Given - Provider: Dena Cotton, RN ) megestroL (MEGACE) oral suspension 200 mg 200 mg, Oral, DAILY, First dose on 07/19/21 at 0915, Until Discontinued, NOTE: This is a HIGH ALERT Medication. naloxegoL (MOVANTIK) tablet 25 mg 0658 (Given - (CANCELED) Provider: Smion St 25 mg, Oral, DAILY, First dose on Mon Herminio, ERNST) 07/13/21 at 0700, Until Discontinued, Give once daily until return of bowel flatus. 2127 (Given - Provider: Ana Rosenberg, RN ) netarsudiL (RHOPRESSA) 0.02 % soln 2044 (Given - ++patient own supply++ Provider: Sierra 1 drop, Right Eye, AT BEDTIME DAILY, Andrew, RN) First dose on Mon07/16/21 at 2100, Unti l Discontinued, ++patient own supply++ 0808 (Given - Provider: Zack Eugene, RN )2129 (Given - Provider: Ana Rosenberg, RN) 0852 (Given - Provider: Dena Cotton, RN ) timoloL maleate (TIMOPTIC) 0.5 % 0831 (Given - ophthalmic drops 1 drop(Linked Group 1) Provider: Yoselin wiliam 1 drop, Right Eye, TWICE DAILY, First Carla RN)2043 (Given dose on Kim 07/15/21 at 1115, Until - Provider: Randa e Discontinued, Give with dorzolamide to Andrew, RN) equal Cosopt 07/19/2021 07/20/2021 Medication Order 07/18/2021 1537 (Given - Provider: Aly Link, ERNST) 1133 (Given - Provider: Dena Cotton RN ) calcium carbonate (TUMS) chew tablet 500 0312 (Given - mg Provider: Simon St 500 mg, Oral, EVERY 4 HOURS PRN, ERNST Durham)1037 (Giv en Starting on Mon07/17/21 at 2055, Until - Provider: Sarmad matthews Mon07/20/21 at 1235, ERNST Aguirre)1434 (Given Indigestion/Heartburn, Each 500 mg tab - Provider: Sarmad matthews delivers 200 mg elemental calcium ERNST Aguirre) 1235 (Unheld by Provider - Provider: Jose, Orders Discontinue) cetirizine (ZyrTEC) tablet 5 mg 5 mg, Oral, DAILY PRN, Starting on Mon07/12/21 at 1638, Until Mon07/20/21 at 1235, Allergy symptoms 0817 (Given - Provider: Zack Eugene, ERNST )2131 (Given - Provider: Ana Rosenberg, RN) ondansetron (ZOFRAN) injection 8 mg 1929 (Given - 8 mg, Intravenous, EVERY 6 HOURS PRN, Provider: Manjinder ole Starting on Mon07/14/21 at 1111, Until Andrew, RN) Mon07/20/21 at 1235, Nausea/Vomiting Injectable 1235 (Unheld by Provider - Provider: Ku, Orders Discontinue) traMADoL (ULTRAM) tablet 50 mg 50 mg, Oral, EVERY 6 HOURS PRN, Starting on 07/12/21 at 1638, Until Tu07/20/21 at 1235, Pain PO Order Group 1: dorzolamide (TRUSOPT) 2 % ophthalmic so lution 1 dropJump to med 1 drop, Right Eye, TWICE DAILY, First d ose on Kim 07/15/21 at 1115, Until Discontinued
Give with timolol to equal Cosopt.
And timoloL maleate (TIMOPTIC) 0.5 % ophtha lmic drops 1 dropJump to med 1 drop, Right Eye, TWICE DAILY, First d ose on Kim 07/15/21 at 1115, Until Discontinued
Give with dorzolamide to equal Cosopt
documented in this encounter Orders First Ordered Date Medications Ordered That Might Not Have Count Last Ordered Date Been Administered megestroL (MEGACE) oral suspension 200 1 07/19/2021 mg calcium carbonate (TUMS) chew tablet 500 1 07/17/2021 mg netarsudiL (RHOPRESSA) 0.02 % soln 1 ++patient own supply++ sodium phosphate 15 mmol in dextrose 5% 1 07/16/2021 (D5W) 250 mL IVPB brimonidine (ALPHAGAN) 0.2 % ophthalmic 1 07/15/2021 solution 1 drop dorzolamide (TRUSOPT) 2 % ophthalmic 1 0 07/15/2021 solution 1 drop HELP MEDICATION 2 07/15/2021 ketorolac (ACULAR) 0.5 % ophthalmic 1 solution 1 drop latanoprost (XALATAN) 0.005 % ophthalmic 1 07/15/2021 solution 1 drop timoloL maleate (TIMOPTIC) 0.5 % 1 07/15 ophthalmic drops 1 drop ondansetron (ZOFRAN) injection 8 mg 1 albumin 25% injection 25 g 1 07/13/2021 aspirin EC tablet 81 mg 1 07/13/2021 atorvastatin (LIPITOR) tablet 40 mg 1 heparin (porcine) PF syringe 5,000 Units 1 07/13/2021 07/12/2021 lactated ringers infusion 4 07/13/2021 perflutren lipid microspheres (DEFINITY) 1 07/13/2021 injection 1-20 Diluted mL WATER FOR INJECTION, STERILE IJ SOLN 1 0 07/13/2021 (Cabinet Override) acetaminophen (TYLENOL EXTRA STRENGTH) 2 07/12/2021 tablet 1,000 mg atenoloL (TENORMIN) tablet 25 mg 1 07/12 ceFAZolin (ANCEF) IVP 2 g 1 07/12/2021 ceFAZolin 2 g IVPB 110 mL 1 07/12/2021 celecoxib (CeleBREX) capsule 200 mg 1 cetirizine (ZyrTEC) tablet 5 mg 1 2021 dextrose 5 % & 0.45% NaCl with KCl 20 1 07/12/2021 mEq/L infusion famotidine (PEPCID) tablet 20 mg 1 07/12 fentaNYL citrate PF (SUBLIMAZE) 1 2021 injection 25-50 mcg gabapentin (NEURONTIN) capsule 300 mg 1 07/12/2021 gabapentin (NEURONTIN) capsule 600 mg 1 07/12/2021 HYDROmorphone injection (DILAUDID) 0.5 1 07/12/2021 mg metroNIDAZOLE (FLAGYL) 500 mg IVPB 100 2 07/12/2021 mL naloxegoL (MOVANTIK) tablet 25 mg 1 06/20 nalOXone (NARCAN) injection 0.4 mg 1 ondansetron (ZOFRAN) injection 4 mg 1 phenoL (CHLORASEPTIC) spray 2 spray 1 sodium chloride 0.9 % infusion 1 07/12 SODIUM CHLORIDE 0.9 % IV SOLP (Cabinet [...] 1 2021 PHYSICIAN CONSULT CARDIOLOGY PHYSICIAN 1 2 CONSULT DIETITIAN 1 07/12/2021 CONSULT WOUND/OSTOMY TEAM [...] Date APPOINTMENT REQUEST: [facility] 07/20/2021 ([place]) First Ordered Date Intake & Output Count [...] Concerns Noted Time Assessment 07/20/2021 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 [address] [place] [id number] documented as of this encounter
--- OUTSIDE RECORDS SUMMARY | 2021-07-20 15:43 | XMS REPORT | Encounter Summary ---
Author Author [facility] Organization [facility] Address Unknown Phone Unavailable Care Team Providers Care Catering Barista Name Role Phone Angelo Gordon MD PCP Bartolo Cornejo MD Unavailable Encounter Details Care Team Description Date Type Department Arrived 06/24/2021 Hospital Imaging: Main [facility], Encounter Main [facility] [address] [facility] [address] [place] [address] Social History Date Tobacco Use Types Packs/Day Years Used Never Smoker Smokeless Tobacco: Never Used Comments Alcohol Use Standard Drinks/Week Not Currently 0 (1 standard drink = 0.6 o z pure alcohol) Sex Assigned at Date Recorded Male 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 Date Recorded COVID-19 Exposure Response 07/12/2021 11:38 AM ACID ETCH OPERATOR In the last month, have you [...] track (07/12/2021 Yes April Marie, 6:07 PM ACID ETCH OPERATOR) RN Note: "To heal and recover, and get stronger, be as healthy as I can" documented as of this encounter Procedures Comments Procedure Name Priority Date/Time Associated Diag nosis CT CHEST EXTERNAL IMAGING Routine 06/24/2021 12:05 AM ACID ETCH OPERATOR documented in this encounter Results * CT CHEST EXTERNAL IMAGING (06/24/2021 12:05 AM ACID ETCH OPERATOR) Modality Anatomical Region Laterality Computed Radiography Specimen Narrative Scheduling, Silent - 07/20/2021 12:35 PM ACID ETCH OPERATOR This order has been auto finalized and does not contain a result. documented in this encounter Visit Diagnoses Not on filedocumented in this encounter Additional Health Concerns Noted Time Assessment 04/30/2021 9:50 AM ACID ETCH OPERATOR A fall risk assessment has been complet ed for the patient documented as of this encounter Care Teams Start Date End Date Catering Barista Relationship Specialty 05/17/20 Angelo Gordon MD PCP - General Internal [address] [facility] Medicine [facility] [address] [id number] 05/17/20 Bartolo Cornejo MD Internal [address] [facility] Medicine [address] [place] [id number] documented as of this encounter
--- OUTSIDE RECORDS SUMMARY | 2021-07-20 15:43 | XMS REPORT | Encounter Summary ---
Author Author [facility] Address Unknown Phone Unavailable Care Team Providers Care Director Market Research Name Role Phone Angelo Gordon MD PCP Bartolo Cornejo MD Unavailable Encounter Details Care Team Description Date Type Department Cody Louie MD [address] [place] [address] Malignant neoplasm of overlapping sites of bladder (HCC) (Primary Dx) 06/29/2021 Orders Only Oncology: [facility] [address] [place] [address]. 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 06/29/2021 dexAMETHasone (DECADRON) Take two 30 tablet 0 4 mg tabletIndications: tablets by Malignant neoplasm of mouth daily. overlapping sites of On Days 2-4 bladder (HCC) of each cycle. 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
--- OUTSIDE RECORDS SUMMARY | 2021-07-20 15:44 | XMS REPORT | Encounter Summary ---
Author Author [facility] Organization [facility] Address Unknown Phone Unavailable Care Team Providers Care General Pediatrician Name Role Phone Angelo Gordon MD PCP Bartolo Cornejo MD Unavailable Reason for Visit * Reason Onset Date Comments Appointment 06/14/2021 Patient calling for update Encounter Details Care Team Description Date Type Department Keith Trinidad MD [address] Ortho[facility] [address] [place] [address] Appointment (Patient calling for update) 06/14/2021 Telephone Urology: [facility] 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 He states he spoke with someone last week and was told a nurse navigator would be following up with him. He states he has been having colon problems and was told it may be metastasis from the urinary tract. He has not heard from them and wanted to get an update. He thought one of the covering providers was going to review his records? Let him know I will follow up on where we are in getting his records reviewed. H e is scheduled with Dr. Trinidad on 06/29 which is the soonest availability for Dr. Trinidad. He thanked me for the call. Spoke with navigation, they have not started or called for records. Spoke with Gregorio soni, she will request records for Dr. Obrien to review in Dr. Trinidad's absence and will follow up with the patient. F GLUER documented in this encounter Plan of Treatment [...] Concerns Noted Time Assessment 04/30/2021 9:50 AM SCARF GLUER A fall risk assessment has been complet ed for the patient documented as of this encounter Care Teams Start Date End Date General Pediatrician Relationship Specialty 05/17/20 Angelo Gordon MD PCP - General Internal 2023 [facility] [address] [id number] 05/17/20 Bartolo Cornejo MD Internal [address] [facility] [address] [place] [id number] documented as of this encounter
--- OUTSIDE RECORDS SUMMARY | 2021-07-20 15:44 | XMS REPORT | Encounter Summary ---
Author Author [facility] Organization [facility] Address Unknown Phone Unavailable Care Team Providers Care Claims Specialist Name Role Phone Angelo Gordon MD PCP Bartolo Cornejo MD Unavailable Reason for Visit * Reason Onset Date Comments Navigation Assessment 06/15/2021 Encounter Details Care Team Description Date Type Department Cody Louie MD [address] [place] [address] Navigation Assessment 06/15/2021 Telephone Oncology: [facility] [address] [facility] 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 Louie - telehealth Diagnosis & Reason for Visit: Metastatic bladder cancer, discuss treatment options Physician Info: Referring: self Surgeon: Dr. Keith Trinidad, urology PCP: Dr. Angelo Gordon Other: Dr. Kvng Rm, urology. Location of Films: IN HOUSE and PACS Location of Pathology: [facility] and IN HOUSE History of Present Illness/Treatment Timeline: RE-Navigation the following reflects updated information since original navigati on note dated 05/17/20 06/04/20- radical cystectomy/prostatectomy with ileal conduit. Staged [id number]. P athology: A. Bladder and prostate, cystoprostatectomy: [...] Metastatic carcinoma ROXANA-3 immunopositivity suggests urothelial carcinoma. Comments: Patient lives in [place], [place]. Requesting telehealth consult if possibl e; states he has frequent diarrhea and needs to be near a restroom at all times. States he can travel to [facility] if needed for future treatments. He was informed of patient telehealth instructions and expectations. He denied further questions or concerns at this time. Has navigator contact info. SIT SURVEY WORKER documented in this encounter Plan of Treatment [...] Concerns Noted Time Assessment 04/30/2021 9:50 AM TRANSIT SURVEY WORKER A fall risk assessment has been complet ed for the patient documented as of this encounter Care Teams Start Date End Date Claims Specialist Relationship Specialty 05/17/20 Angelo Gordon MD PCP - General Internal 2023 [facility] [address] [id number] 05/17/20 Bartolo Cornejo MD Internal [address] [facility] [address] [place] [address] documented as of this encounter
--- NOTE | 2021-07-20 16:07 | Physical Therapy Evaluation ---
PT Evaluation-General Medical Diagnosis Admission Date Jul 20, 2021 at 14:35 Medical Diagnosis: CVA Onset Date: Jul 13, 2021 Therapy Diagnosis Therapy Diagnosis: impaired mobility, strength, endurance Referral Physician: Catrachita Snyder DO Reason for Referral: Evaluation/Treatment Medical History Additional Medical History tumor excision, kidney stone surgery, bladder cancer 03/2020 s/p TURP, cystectomy/prostatectomy with ileal conduit 05/2020 Current History metastatic bladder cancer with invasion into rectum with colonic obstruction. exp lap 07/12 with colostomy, stroke activation 07/13 for vision changes and R side weakness. Imaging revealed CVA. Reviewed History: Yes Social History Home: Single Level Current Living Status: Spouse Entry Into Home: Stairs Without Railing PT Steps Into Home: 4 Prior Prior Level of Function SCALE: Activities may be completed with or without assistive devices. 6-Fghirfawju-inhggjx completes the activity by him/herself with no assistance from a helper. 5-Set-up or Clean-up Assistance-helper sets up or cleans up; patient completes activity. [place] assists only prior to or following the activity. 4-Supervision or Touching Assistance-helper provides verbal cues and/or touching/steadying and/or contact guard assistance as patient completes activity. Assistance may be provided throughout the activity or intermittently. 3-Partial/Moderate Assistance-helper does LESS THAN HALF the effort. [place] lifts, holds or supports trunk or limbs, but provides less than half the effort. 2-Substantial/Maximal Assistance-helper does MORE THAN HALF the effort. [place] lifts or holds trunk or limbs and provides more than half the effort. 8-Ddhzoteeh-uxkubk does ALL the effort. Patient does none of the effort to complete the activity. Or, the assistance of 2 or more helpers is required for the patient to complete the activity. If activity was not attempted, code reason: 7-Patient Refused. 9-Not Applicable-not attempted and the patient did not perform the activity before the current illness, exacerbation or injury. 10-Not Attempted due to Environmental Limitations-(lack of equipment, weather restraints, etc.). 88-Not Attempted due to Medical Conditions or Safety Concerns. Bed Mobility: 6 Transfers (B,C,W/C): 6 Gait: 6 Stairs: 6 Indoor Mobility (Ambulation): Independent Stairs: Independent PT Evaluation-Current Subjective Patient in bed pre tx, agrees to PT, no complaints of pain. Will be co-treating with OT due to poor patient mobility, strength, endurance, poor safety, coordinate UE and LE during activity, safety and reduce risk of falls. Pt/Family Goals to be independent at home Objective Patient Orientation: Person, Confused Attachments: Colostomy/Ileostomy urostomy ROM/Strength ROM Lower Extremities WNL Strength Lower Extremities LLE (hip flexion 3+/5, knee flexion 4/5, knee extension 4/5, dorsiflexion 4/5), RLE (hip flexion 3+/5, knee flexion 4/5, knee extension 4/5, dorsiflexion 4/5) Neuromuscular (Tone, Coordination, Reflexes) Patient has impaired peripheral vision on the right side, poor tracking bilaterally Sensory Hearing: Functional Sensation Right Lower Extremit: Intact Sensation Left Lower Extremity: Intact Transfers Roll Left & Right (QC): 6 Sit to Lying (QC): 6 Lying to Sitting/Side of Bed(Q: 6 Sit to Stand (QC): 4 Chair/Ooz-zx-Ppdpq Xfer(QC): 3 Toilet Transfer (QC): 3 Car Transfer (QC): 3 Patient performs rolling and supine <-> sit with independence, sit <-> stand CGA, transfers min assist, car transfer min assist. Patient needs a lot of assist with guiding his walker and cues for direction, he also needs tactile cues for direction. Gait Does the Patient Walk?: Yes Mode of Locomotion: Walk Anticipated Mode of Locomotion: Walk Walk 10 feet (QC): 3 Walk 50 ft with 2 Turns(QC): 3 Walk 150 ft (QC): 88 Walking 10ft/uneven surface-QC: 3 Distance: 100'x2 Gait Assistive Device: FWW Comments/Gait Description Patient can ambulate 100' with a rolling walker with min assist, patient needs assist with guiding his walker Wheelchair Training Does the Pt Use a Wheelchair?: No Wheel 50 ft with 2 turns (QC): 9 Wheel 150 ft (QC): 9 Stairs #of Steps: 1 1 Step (curb) (QC): 3 4 Steps (QC): 88 12 Steps (QC): 88 Walking Assistive Device: Walker Patient can go up and down 1 step using a rolling walker with min assist Balance Sitting Static: Normal Sitting Dynamic: Normal Standing Static: Fair Standing Dynamic: Fair Picking up an Object (QC): 4 Treatment worked on balance and scanning with ring and peg activity. PT worked on bed mobility and transfers, ambulation, stair training, gait training, balance and safety, OT worked on dressing, UE positioning and safety during activity, ring and peg activity Assessment/Needs Patient in recliner post tx with nurse call, phone, tray, all needs met, chair alarm on. Patient has impaired mobility, strength, endurance. Patient needs verbal and tactile cues for direction due to his visual impairments, he also has significant right neglect. Rehab Potential: Guarded PT Short Term Goals Short Term Goals Time Frame: Jul 27, 2021 Roll Left & Right: 6 Sit to lyin Lying to sitting on side of be: 6 Sit to stand: 4 (SBA) Chair/wlw-ev-ojwov transfer: 4 (CGA) Walk 10 feet: 4 (CGA) Walk 50 feet with two turns: 4 (CA) Walk 150 feet: 4 (CGA) PT Critical Care Nurse Goals Critical Care Nurse Goals PT Mcfp Goals Time Frame: Aug 10, 2021 Roll Left & Right (QC): 6 Sit to Lying (QC): 6 Lying-Sitting on Side/Bed(QC): 6 Sit to Stand (QC): 5 Chair/Bpx-sl-Rrdgn Xfer(QC): 4 (SBA) Toilet Transfer (QC): 4 (SBA) Car Transfer (QC): 4 (SBA) Does the Patient Walk: Yes Walk 10 feet (QC): 4 (SBA) Walk 50ft with 2 Turns (QC): 4 (SBA) Walk 150 ft (QC): 4 (SBA) Walking 10ft on Uneven Surface: 4 (SBA) 1 Step (curb) (QC): 4 (SBA) 4 Steps (QC): 4 (SBA) 12 Steps (QC): 88 Picking up an Object (QC): 4 (SBA) Wheel 50 feet with 2 turns (QC: 9 Wheel 150 feet: 9 PT Plan Problem List Problem List: Activity Tolerance, Functional Strength, Safety, Balance, Gait, Transfer, Bed Mobility, ROM Treatment/Plan Treatment Plan: Continue Plan of Care Treatment Plan: Bed Mobility, Education, Functional Activity Stella, Functional Strength, Group Therapy, Gait, Safety, Therapeutic Exercise, Transfers Treatment Duration: Aug 10, 2021 Frequency: At least 5 of 7 days/Wk (IRF) Estimated Hrs Per Day: 1.5 hours per day Patient and/or Family Agrees t: Yes Safety Risks/Education Patient Education: Gait Training, Transfer Techniques, Steps, Correct Positioning, Safety Issues Teaching Recipient: Patient Teaching Methods: Demonstration, Discussion Response to Teaching: Reinforcement Needed Discharge Recommendations Plan Patient will perform bed mobility and transfer training, balance and endurance training, functional strengthening, stair training, gait training, and education, to improve functional mobility and independence at home. Therapy Discharge Recommendati: Scheduled Assistance, Home & Family, Post Acute PT Time/GCodes Time In: 1450 Time Out: 1620 Total Billed Treatment Time: 90 Total Billed Treatment 1 visit EVM 10' EX 30' FA 50' PT eval [id number], co-treat from [id number] DEVAUGHN ROJAS PT Jul 20, 2021 16:07
--- NOTE | 2021-07-20 16:26 | Progress Note ---
ELIO REYES 07/20/21 1626: Progress Note Subjective: Chemo is a 71yo M being transferred to [facility] from [facility]. Him and his acted as historians during this patient interview. Patient was supposed to have chemotherapy done at [facility] on 07/09/21 for metastatic bladder cancer with peritoneal mets and distal obstructions but was deemed too weak for treatment and was told he had to have a colostomy done before they could start chemotherapy. He was admitted to [facility] on 07/12/21 to have a loop sigmoid colostomy done. While the patient was being hospitalized for his surgery he had an acute ischemic left E COMMERCE ANALYST stroke that resulted in right hemiparesis. Patient was very weak and confused after the stroke and was transferred to [facility] to work on physical therapy. Past medical history includes urothelial carcinoma, acute kidney injury, kidney stones, paroxysmal atrial fibrillation, hypertension, GERD, colon obstruction, encephalopathy, homonymous hemianopia, hypovolemic shock, NSTEMI, skin cancer. Past surgical history includes appendectomy, vasectomy, cataract removal, cystoscopy, bladder tumor excision, glaucoma surgery, laser eye surgery, cystectomy/prastectomy, kidney stone surgery, cystourethroscopy, nephrostomy, colostomy. Pertinent labs from included Hgb 10.1, platelets 109,000. Patient is and living with his . He does not drink alcohol and has never been a smoker. He was receiving physical therapy while at [facility] and was able to ambulate 220 ft with a walker and can transfer from bed to chair independently. Needs total assistance for dressing and toileting. Allergies- Tegaderm, Erythromycin, Chlorhexidine gluconate Current medications- Tylenol, Aspirin, Atenolol, Atorvastatin, Brimonidine, Ceterizine, Dexamethasone, Dicyclomine, Dorzolamide, Famotidine, Ketorolac, Latanoprost, Netarsudil, Ondansetron, Prednisolone, Polyethylene glycol, Docusate, Tramadol, Multivitamin Objective: ROS- Patient reports fatigue, stomach pain, vomiting (occurred 3 days ago). Denies being in any pain. Denies chills, fever, headache, blurry vision, chest pain, shortness of breath, cough, joint stiffness, muscle pain. Patient denies being anxious and says he feels calm about being here. Exam- Regular rate and rhythm heard with auscultation of heart, lungs were clear with auscultation, 2+ right radial pulse, 2 second capillary refill, no edema of lower extremities Patient oriented to self only. Believes he is in the year 1992 and that he is still at [facility]. Assessment/ Plan: 1) Colostomy/ Urostomy Proper emptying and cleaning will be done Patient can eat a regular diet 2) Acute embolic stroke Taking Aspirin and Atorvastatin Was not a candidate for tPa 3) Physical debility Patient will be meeting with physical therapy and occupational therapy Will work on improving strength in his right side 4) GERD Restart home medications including Famotidine CATRACHITA COLVIN DO 07/21/21 0736: Supervisory-Addendum Brief Verification & Attestation Participated in pt care: history, MDM, physical Personally performed: exam, history, MDM, supervision of care Care discussed with: Medical Student Procedures: n/a Results interpretation: Verified all documentation Verification and Attestation of Medical Student E/M Service A medical student performed and documented this service in my presence. I reviewed and verified all information documented by the medical student and made modifications to such information, when appropriate. I personally performed the physical exam and medical decision making. Catrachita Colvin, Jul 21, 2021,07:34 ELIO REYES Jul 20, 2021 16:26 CATRACHITA COLVIN DO Jul 21, 2021 07:36
[2021-07-20] MEDS: CALCIUM CARBONATE 500 MG (TUMS) TAB.CHEW PO PRN (16:33)
[2021-07-20 17:15] VITALS: BP 131/83
--- NOTE | 2021-07-20 18:05 | PM&R Post Admission Assessment ---
PM&R HP Date of Visit: Jul 20, 2021 Time of Visit: 18:30 History of Present Illness Chief complaint: CVA History of present illness: 71 year old WM who lives in [place] with spouse who can provide 24 hour supervision but limited functional assistance who presents to in-patient rehab due to severe debility following procedure at for bladder cancer management. He has a past medical history of bladder cancer diagnosed at March 2020 status post TUR cystectomy with prostatectomy with ileal conduit 05/2020. Pt was found to have invasion into the rectum with colonic obstruction. Went to on 07/12/21 scheduled exploratory lap with colostomy and a stroke was activated on 07/13/21 for vision changes and right sided weakness. CT and MRI showed multifocal acute subacute bilateral cerebellar and cerebral infarcts with large left REVENUE OFFICER territory infarct. His prior level of function was independent with endurance limitations currently he is max lower body dressing, moderate transfer, minimum gait of 150 feet, and confusion is improving. Subjective: Chemo is a 71yo M being transferred to [facility] from [facility]. Him and his acted as historians during this patient interview. Patient was supposed to have chemotherapy done at [facility] on 07/09/21 for metastatic bladder cancer with peritoneal mets and distal obstructions but was deemed too weak for treatment and was told he had to have a colostomy done before they could start chemotherapy. He was admitted to [facility] on 07/12/21 to have a loop sigmoid colostomy done. 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 Patient was very weak and confused after the stroke and was transferred to [facility] to work on physical therapy. Past medical history includes urothelial carcinoma, acute kidney injury, kidney stones, paroxysmal atrial fibrillation, hypertension, GERD, colon obstruction, encephalopathy, homonymous hemianopia, hypovolemic shock, NSTEMI, skin cancer. Past surgical history includes appendectomy, vasectomy, cataract removal, cystoscopy, bladder tumor excision, glaucoma surgery, laser eye surgery, cyst ectomy/prastectomy, kidney stone surgery, cystourethroscopy, nephrostomy, colostomy. Pertinent labs from included Hgb 10.1, platelets 109,000. Patient is and living with his . He does not drink alcohol and has never been a smoker. He was receiving physical therapy while at [facility] and was able to ambulate 220 ft with a walker and can transfer from bed to chair in dependently. Needs total assistance for dressing and toileting. Allergies- Tegaderm, Erythromycin, Chlorhexidine gluconate Current medications- Tylenol, Aspirin, Atenolol, Atorvastatin, Brimonidine, Ceterizine, Dexamethasone, Dicyclomine, Dorzolamide, Famotidine, Ketorolac, Latanoprost, Netarsudil, Ondansetron, Prednisolone, Polyethylene glycol, Docusate, Tramadol, Multivitamin Objective: ROS- Patient reports fatigue, stomach pain, vomiting (occurred 3 days ago). Denies being in any pain. Denies chills, fever, headache, blurry vision, chest pain, shortness of breath, cough, joint stiffness, muscle pain. Patient denies being anxious and says he feels calm about being here. Exam- Regular rate and rhythm heard with auscultation of heart, lungs were clear with auscultation, 2+ right radial pulse, 2 second capillary refill, no edema of lower extremities Patient oriented to self only. Believes he is in the year 1992 and that he is still at [facility]. Assessment/ Plan: 1) Colostomy/ Urostomy Proper emptying and cleaning will be done Patient can eat a regular diet 2) Acute embolic stroke Taking Aspirin and Atorvastatin Was not a candidate for tPa 3) Physical debility Patient will be meeting with physical therapy and occupational therapy Will work on improving strength in his right side 4) GERD Restart home medications including Famotidine ELIO REYES Jul 20, 2021 16:26 <Created by ELIO REYES > Past Chodyge-Oewfey-Kxyghh Hx Past Med/Social Hx: Reviewed Nursing Past Med/Soc Hx, Reviewed and Corrections made Patient Social History Marrital Status: Employed/Student: retired Alcohol Use: Denies Use Smoking Status: Never a Smoker Past Medical History Surgeries: Abdominal Cardiac: Atrial Fibrillation, Coronary Artery Disease, High Cholesterol, Hypertension Neurological: Stroke Genitourinary: Benign Prostatic Hyperpl, Bladder Infection Gastrointestinal: Gastroesophageal Reflux Musculoskeletal: Arthritis Cancer: Bladder Did You Recieve Any Treatments: Yes What Type of Treatment Did You: Chemotherapy, Surgical Intervention Prior Level of Function Bed Mobility: 6 Transfers: 6 Gait: 6 Stairs: 6 Indoor Mobility (Ambulation): Independent Stairs: Independent Self Care: Independent Functional Cognition: Independent Current Level of Fuctioning Roll Left to Right: 6 Sit to Lyin Lying to Sitting/Side of Bed: 6 Sit to Stand: 4 Chair/Cik-ft-Uwnbz Xfer: 3 Car Transfer: 3 Does the Patient Walk: Yes Mode of Locomotion: Walk Anticipated Mode of Locomotion: Walk Walk 10 feet: 3 Walk 50 ft with 2 Turns: 3 Walk 150 ft: 88 Walking 10ft on uneven surface: 3 Gait Assistive Device: FWW Does the Pt Use a Wheelchair: No Wheel 50 ft with 2 turns: 9 Wheel 150 ft: 9 #of Steps: 1 1 Step (curb): 3 4 Steps: 88 Walking Assistive Device: Walker 12 Steps: 88 Picking up an Object: 4 Eatin Oral Hygiene: 7 Shower/Bathe Self: 7 Upper Body Dressin (Min A with threading RUE into shirt, assist down his back. ) Lower Body Dressin (Max A with threading BLEs into pants, assist with pant hike.) On/Off Footwear: 7 Toileting Hygiene: 1 (total assist changing ostomy bags) PM&R Allergy/Meds/Data Review Allergies Coded Allergies: chlorhexidine (Verified Allergy, Unknown, 07/20/21) erythromycin base (Verified Allergy, Unknown, 07/20/21) silver (Verified Allergy, Unknown, 07/20/21) Uncoded Allergies: tegaderm (Allergy, Unknown, 07/20/21) Home Medications Scheduled Aspirin (Aspirin EC), 81 MG PO HS, (Reported) Atenolol (Atenolol), 50 MG PO DAILY, (Reported) Atorvastatin Calcium (Atorvastatin Calcium), 40 MG PO DAILY, (Reported) Brimonidine Tartrate (Alphagan P), 1 DROP OD BID, (Reported) Dicyclomine HCl (Dicyclomine HCl), 10 MG PO ACHS, (Reported) Dorzolamide HCl/Timolol Maleat (Cosopt Eye Drops), 1 DROP OD BID, (Reported) Ketorolac Tromethamine (Acular), 1 DROP OD QID, (Reported) Latanoprost (Xalatan), 1 DROP OD HS, (Reported) Netarsudil Mesylate (Rhopressa), 1 DROP OU HS, (Reported) Merna-3S/Dha/Epa/Fish Oil (Fish Oil Merna-3 Softgel), 1 EACH PO DAILY, (Reported) Prednisolone Acetate (Prednisolone Acetate), 1 DROP OD QID, (Reported) Vit C/E/Zn/Coppr/Lutein/Zeaxan (Preservision Areds 2 Softgel), 2 EACH PO DAILY, (Reported) Scheduled PRN Acetaminophen (Tylenol), 975 MG PO Q8H PRN for PAIN-MILD (1-4), (Reported) Acetaminophen (Tylenol Extra Strength), 500 MG PO Q6H PRN for PAIN-MILD (1-4), (Reported) Cetirizine HCl (Cetirizine HCl), 5 MG PO DAILY PRN for ALLERGY SYMPTOMS, (Repo rted) Dexamethasone (Dexamethasone), 8 MG PO DAILY PRN for ON DAYS 2-4 OF CYCLE, (Reported) Famotidine (Pepcid), 20 MG PO BID PRN for HEARTBURN, (Reported) Ondansetron HCl (Ondansetron HCl), 8 MG PO Q8H PRN for NAUSEA/VOMITING-1ST LINE, (Reported) Polyethylene Glycol 3350 (Miralax), 17 GM PO DAILY PRN for CONSTIPATION-2ND LINE, (Reported) Sennosides/Docusate Sodium (Senna-S Tablet), 1 EACH PO DAILY PRN for CONSTIPATION-6TH LINE, (Reported) Tramadol HCl (Tramadol HCl), 50 MG PO Q8H PRN for PAIN-MODERATE (5-7), (Reported) Current Medications Current Medications Reviewed Review of Systems Constitutional: see HPI, malaise, weakness EENTM: no symptoms reported Respiratory: dyspnea on exertion Cardiovascular: no symptoms reported Gastrointestinal: abdominal pain, other (Blood from colostomy) Genitourinary: see HPI Musculoskeletal: back pain Skin: no symptoms reported Psychiatric/Neurological: Anxiety, Depressed All Other Systems Reviewed Negative Unless Noted: Yes Physical Exam Physical Exam Vital Signs Capillary Refill : Height, Weight, BMI Height: '" Weight: lbs. oz. kg; BMI Method: General Appearance: No Apparent Distress, WD/WN, Chronically ill, Thin, Other (Very debilitated) Eyes: Bilateral Eye Normal Inspection, Bilateral Eye PERRL HEENT: PERRL/EOMI, Normal ENT Inspection, Pharynx Normal Neck: Full Range of Motion, Normal Inspection, Non Tender, Supple, Carotid Bruit Respiratory: Chest Non Tender, Lungs Clear, Normal Breath Sounds, No Accessory Muscle Use, No Respiratory Distress Cardiovascular: Regular Rate, Rhythm, No Edema, No Gallop, No JVD, No Murmur, Normal Peripheral Pulses Gastrointestinal: Normal Bowel Sounds, No Organomegaly, No Pulsatile Mass, Non Tender, Soft Back: Normal Inspection, No CVA Tenderness, No Vertebral Tenderness Extremity: Normal Capillary Refill, Normal Inspection, Normal Range of Motion, Non Tender, No Calf Tenderness, No Pedal Edema Neurologic/Psychiatric: Alert, Oriented x3, No Motor/Sensory Deficits, electroformer II- XII Norm as Tested, Abnormal Gait, Depressed Affect, Motor Weakness (Right- sided) Skin: Normal Color, Warm/Dry Lymphatic: No Adenopathy PM&R Medical Assessment & Plan REHAB/MEDICAL ASSESSMENT AND PLAN: REHAB IMPAIRMENT GROUP: [ ] ETIOLOGIC DIAGNOSIS: [ (condition that led to rehab admission) ] The comorbidities that impact the patients function and/or functional outcome by: [ ] REHAB PLAN: The patient is being admitted to our comprehensive inpatient rehabilitation facility and can tolerate the intensity of service consisting of at least: 180 minutes of therapy a day, 5 out of 7 days a week Rehab treatment will consist of: [ (write brief focus that includes physician, rehab nursing and therapies/modalitiesIPOC will have more specifics) ] The patient/family has a good understanding of our discharge process and will benefit from an interdisciplinary inpatient rehabilitation program. The patient has potential to make improvement and is in need of at least two of the following multidisciplinary therapies including but not limited to physical, occupational, speech, and prosthetics and orthotics. Additionally the patient will need services from respiratory, nutritional services, wound care, psychology, etc. (Customize this to each patient). Given the patients complex condition and risk of further medical complications, rehabilitation services cannot be safely or effectively provided at a lower level of care such as a usp facility. BARRIERS TO DISCHARGE: [ ] ESTIMATED LOS: [ ] DISPOSITION: [ ] RELEVANT CHANGES SINCE PREADMISSION SCREENING: I have compared the patients medical and functional status at the time of the preadmission screening and there are: [no changes] [changes as follows: (if there is a discrepancy between the IGC/Etiologic stated on the PAS, address/clarify this as well) ] PROGNOSIS: [ ] REHABILITATION GOALS: 1. [ (specific to the patient) ] All the above goals were reviewed with the patient and he/she is in agreement. By signing this document, I acknowledge that I have personally performed a full physical examination on this patient within 24 hours of admission to this inpatient rehabilitation facility and have determined the patient to be able to tolerate the above course of treatment at an intensive level for a reasonable period of time. I will be completing a detailed individualized Plan of Care for this patient by day #4 of the patients stay based upon the Preadmission Screen, the Post-Admission Evaluation, and the therapy evaluations. Admission Dx/Comorbidities: (1) Bladder cancer ICD Codes: C67.9 - Malignant neoplasm of bladder, unspecified (2) Colostomy in place ICD Codes: Z93.3 - Colostomy status (3) CVA (cerebral vascular accident) ICD Codes: I63.9 - Cerebral infarction, unspecified Assessment/Plan Assessment and Plan Assess & Plan/Chief Complaint Assessment: 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 Acute kidney injury Kidney stones Paroxysmal atrial fibrillation Hypertension GERD Colon obstruction Encephalopathy Homonymous hemianopia s/p hypovolemic shock Recent NSTEMI Skin cancer Past surgical history includes appendectomy, vasectomy, cataract removal, cystoscopy, bladder tumor excision, glaucoma surgery, laser eye surgery, cystectomy/prastectomy, kidney stone surgery, cystourethroscopy, nephrostomy, colostomy Plan: General surgery consult Cardiology consult Rehab protocol Supportive care MANPREET COLVIN DO Jul 20, 2021 18:05
[2021-07-20] MEDS ORDERED: SENNA W/DOCUSATE (SENOKOT S) TABLET PO PRN (18:15)
[2021-07-20] MEDS ORDERED: NON-FORMULARY MEDICATION 1 EA EA (Cetirizine HCl 5 MG) PO PRN (18:15)
[2021-07-20] MEDS ORDERED: ACETAMINOPHEN PO PRN (18:15)
[2021-07-20] MEDS ORDERED: polyethylene glycoL POWDER 17 GM (MIRALAX) PACK PO PRN (18:15)
[2021-07-20] MEDS ORDERED: ACETAMINOPHEN 500 MG TAB (TYLENOL) PO PRN (18:15)
[2021-07-20] MEDS ORDERED: NON-FORMULARY MEDICATION 1 EA EA (Ondansetron HCl 8 MG) PO PRN (18:15)
[2021-07-20] MEDS ORDERED: LORATADINE (CLARITIN) 10 MG TAB PO PRN (18:30)
[2021-07-20 19:38] VITALS: BP 120/78
[2021-07-20] MEDS ORDERED: NETARSUDIL MESYLATE OU SCH (21:00)
[2021-07-20] MEDS ORDERED: NON-FORMULARY MEDICATION 1 EA EA (Brimonidine Tartrate (Alphagan P) 1 DROP) OD SCH (21:00)
[2021-07-20] MEDS: BRIMONIDINE 0.2% (ALPHAGAN) OPHTH SOLN 5 ML BTL OD SCH (21:54)
[2021-07-20] MEDS: ASPIRIN E.C. 81 MG (ECOTRIN) TAB PO SCH (21:55)
[2021-07-20] MEDS: LATANOPROST 0.005% (XALATAN) OPHTH SOLN 2.5 ML OD SCH (21:55)
[2021-07-20] MEDS: DOCUSATE SODIUM 100 MG (COLACE) CAP PO SCH (21:56)
[2021-07-20] MEDS: DICYCLOMINE 10 MG (BENTYL) CAP PO SCH (21:57)
[2021-07-20] MEDS: DORZOLAMIDE/TIMOLOL (COSOPT) 2-0.68% 10 ML BTL OD SCH (21:57)
[2021-07-20] MEDS: polyethylene glycoL POWDER 17 GM (MIRALAX) PACK PO SCH (21:58)
[2021-07-20] MEDS: SENNA W/DOCUSATE (SENOKOT S) TABLET PO SCH (21:58)
[2021-07-20] MEDS: prednisoLONE 1% OPTH (PRED FORTE) 5 ML BTL OD SCH (21:58)
[2021-07-21 05:45] LABS: BASOPHILS % (AUTO) 0 % (0-10); EOSINOPHILS # (AUTO) 0.2 10^3/uL (0.0-0.3); EOSINOPHILS % (AUTO) 2 % (0-10); HEMATOCRIT 37 % (40-54); LYMPHOCYTES # (AUTO) 0.4 10^3/uL (1.0-4.0); LYMPHOCYTES % (AUTO) 4 % (12-44); MEAN CORPUSCULAR HEMOGLOBIN 30 pg (25-34); MEAN CORPUSCULAR HGB CONC 33 g/dL (32-36); MEAN CORPUSCULAR VOLUME 91 fL (80-99); MEAN PLATELET VOLUME 10.7 fL (9.0-12.2); MONOCYTES # (AUTO) 0.9 10^3/uL (0.0-1.0); MONOCYTES % (AUTO) 8 % (0-12); NEUTROPHILS # (AUTO) 8.8 10^3/uL (1.8-7.8); NEUTROPHILS % (AUTO) 85 % (42-75); PLATELET COUNT 242 10^3/uL (130-400); WHITE BLOOD COUNT 10.4 10^3/uL (4.3-11.0)
[2021-07-21] MEDS: DICYCLOMINE 10 MG (BENTYL) CAP PO SCH ×5 (06:00→21:39)
[2021-07-21 06:08] LABS: ALBUMIN 3.2 GM/DL (3.2-4.5); POTASSIUM 4.1 MMOL/L (3.6-5.0)
[2021-07-21 06:09] LABS: CALCIUM 8.4 MG/DL (8.5-10.1)
[2021-07-21 06:10] LABS: TOTAL PROTEIN 5.8 GM/DL (6.4-8.2)
[2021-07-21 06:12] LABS: BILIRUBIN,TOTAL 0.9 MG/DL (0.1-1.0)
[2021-07-21 06:14] LABS: CREATININE SERUM 0.94 MG/DL (0.60-1.30)
[2021-07-21 07:35] VITALS: BP 147/96
[2021-07-21] MEDS: OMEGA 3 (FISH OIL) 1000 MG CAP PO SCH (08:04)
[2021-07-21] MEDS: DOCUSATE SODIUM 100 MG (COLACE) CAP PO SCH ×2 (08:04→21:37)
[2021-07-21] MEDS: MULTIVIT W/MINERALS TAB (THERAGRAN M) PO SCH (08:04)
--- NOTE | 2021-07-21 08:06 | PM&R Progress Note ---
Subjective HPI/CC On Admission Date Seen by Provider: Jul 21, 2021 Time Seen by Provider: 11:00 Subjective/Events-last exam Pt doing pretty well and son are at the bedside O2 is off now Speech therapy will do a swallow eval and allow him to eat pizza that he is requesting Ostomy is flowing well Pt is low vision Left flank has a bruise Prognosis is very guarded per [facility] reviewed Dr. Scott will be consulted Review of Systems General: Fatigue, Malaise Neurological: Weakness, Incoordination, Confusion Objective Exam Vital Signs Vital Signs Date Time Temp Pulse Resp B/P (MAP) Pulse Ox O2 Delivery O2 Flow Rate FiO2 07/21/21 21:40 91 Room Air 07/21/21 20:16 36.4 64 18 130/78 (95) 07/21/21 07:35 1.50 Capillary Refill : General Appearance: No Apparent Distress, WD/WN, Chronically ill, Thin, Other (Very debilitated) HEENT: PERRL/EOMI, Normal ENT Inspection, Pharynx Normal Neck: Full Range of Motion, Normal Inspection, Non Tender, Supple, Carotid Bruit Respiratory: Chest Non Tender, Lungs Clear, Normal Breath Sounds, No Accessory Muscle Use, No Respiratory Distress Cardiovascular: Regular Rate, Rhythm, No Edema, No Gallop, No JVD, No Murmur, Normal Peripheral Pulses Gastrointestinal: Normal Bowel Sounds, No Organomegaly, No Pulsatile Mass, Non Tender, Soft Back: Normal Inspection, No CVA Tenderness, No Vertebral Tenderness Extremity: Normal Capillary Refill, Normal Inspection, Normal Range of Motion, Non Tender, No Calf Tenderness, No Pedal Edema Neurologic/Psychiatric: Alert, Oriented x3, No Motor/Sensory Deficits, 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 FIM Transfers Therapy Code Descriptions/Definitions Functional [place] Measure: 0=Not Assessed/NA 4=Minimal Assistance 1=Total Assistance 5=Supervision or Setup 2=Maximal Assistance 6=Modified [place] 3=Moderate Assistance 7=Complete IndependenceSCALE: Activities may be completed with or without assistive devices. 0-Qapyukqeuu-meqexfl completes the activity by him/herself with no assistance from a helper. 5-Set-up or Clean-up Assistance-helper sets up or cleans up; patient completes activity. [place] assists only prior to or following the activity. 4-Supervision or Touching Assistance-helper provides verbal cues and/or touching/steadying and/or contact guard assistance as patient completes activity. Assistance may be provided throughout the activity or intermittently. 3-Partial/Moderate Assistance-helper does LESS THAN HALF the effort. [place] lifts, holds or supports trunk or limbs, but provides less than half the effort. 2-Substantial/Maximal Assistance-helper does MORE THAN HALF the effort. [place] lifts or holds trunk or limbs and provides more than half the effort. 7-Wxaivknpe-lxkjkm does ALL the effort. Patient does none of the effort to complete the activity. Or, the assistance of 2 or more helpers is required for the patient to complete the activity. If activity was not attempted, code reason: 7-Patient Refused. 9-Not Applicable-not attempted and the patient did not perform the activity before the current illness, exacerbation or injury. 10-Not Attempted due to Environmental Limitations-(lack of equipment, weather restraints, etc.). 88-Not Attempted due to Medical Conditions or Safety Concerns. Roll Left to Right (QC): 6 Sit to Lying (QC): 6 Sit to Stand (QC): 4 Chair/Izt-aq-Cqzfe Xfer(QC): 3 Car Transfer (QC): 3 Gait Training Does the Patient Walk?: Yes Walk 10 feet (QC): 3 Walk 50 ft with 2 Turns(QC): 3 Walk 150 ft (QC): 88 Walking 10ft/uneven surface-QC: 3 Gait Assistive Device: FWW Wheelchair Training Does the Pt Use a Wheelchair?: No Wheel 50 ft with 2 turns (QC): 9 Wheel 150 ft (QC): 9 Stair Training #of Steps: 1 1 Step (curb) (QC): 3 4 Steps (QC): 88 12 Steps (QC): 88 Balance Picking up an Object (QC): 4 ADL-Treatment Eating (QC): 7 Oral Hygiene (QC): 7 Shower/Bathe Self (QC): 7 Upper Body Dressing (QC): 3 (Min A with threading RUE into shirt, assist down h is back. ) Lower Body Dressing (QC): 2 (Max A with threading BLEs into pants, assist with pant hike.) On/Off Footwear (QC): 7 Toileting Hygiene (QC): 1 (total assist changing ostomy bags) Assessment/Plan Assessment and Plan Assess & Plan/Chief Complaint Assessment: 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 Acute kidney injury Kidney stones Paroxysmal atrial fibrillation Hypertension GERD Colon obstruction Encephalopathy Homonymous hemianopia s/p hypovolemic shock Recent NSTEMI Skin cancer Past surgical history includes appendectomy, vasectomy, cataract removal, cystoscopy, bladder tumor excision, glaucoma surgery, laser eye surgery, cystectomy/prastectomy, kidney stone surgery, cystourethroscopy, nephrostomy, colostomy Plan: General surgery consult Cardiology consult Rehab protocol Supportive care 07/21/2021: Supportive care Advance diet Family at bedside Continue cognitive improvement management (1) Bladder cancer (2) Colostomy in place (3) CVA (cerebral vascular accident) MANPREET COLVIN DO Jul 21, 2021 08:06
[2021-07-21] MEDS: ACETAMINOPHEN 325 MG TABLET PO PRN ×2 (08:11→21:38)
[2021-07-21] MEDS: ATENOLOL 50 MG (TENORMIN) TAB PO SCH (08:15)
[2021-07-21] MEDS: prednisoLONE 1% OPTH (PRED FORTE) 5 ML BTL OD SCH ×4 (08:21→21:36)
[2021-07-21] MEDS ORDERED: FISH OIL E PO SCH (09:00)
[2021-07-21] MEDS ORDERED: EPA PO SCH (09:00)
[2021-07-21] MEDS ORDERED: OMEGA PO SCH (09:00)
[2021-07-21] MEDS ORDERED: DHA PO SCH (09:00)
[2021-07-21] MEDS ORDERED: [UNRECOGNIZED DRUG - OTHER] PO SCH (09:00)
--- NOTE | 2021-07-21 09:12 | Physical Therapy Daily Note ---
PT Daily Note-Current Subjective Pt sitting in recliner upon arrival. Pt agrees to PT. Pt reports abdominal discomfort, Nurse is advised & pain pill given. Pain Location: Incisional Location Body Site: Abdomen Mental Status Patient Orientation: Person, Confused Attachments: Colostomy/Ileostomy, Gonzalez Catheter Nursing advised to monitor O2 during tx. O2 was 99% to start tx and 95% after amb. Transfers SCALE: Activities may be completed with or without assistive devices. 9-Xjvshtnvok-gltymxx completes the activity by him/herself with no assistance from a helper. 5-Set-up or Clean-up Assistance-helper sets up or cleans up; patient completes activity. [place] assists only prior to or following the activity. 4-Supervision or Touching Assistance-helper provides verbal cues and/or touching/steadying and/or contact guard assistance as patient completes activity. Assistance may be provided throughout the activity or intermittently. 3-Partial/Moderate Assistance-helper does LESS THAN HALF the effort. [place] lifts, holds or supports trunk or limbs, but provides less than half the effort. 2-Substantial/Maximal Assistance-helper does MORE THAN HALF the effort. [place] lifts or holds trunk or limbs and provides more than half the effort. 5-Vckjwkehk-nvcefy does ALL the effort. Patient does none of the effort to complete the activity. Or, the assistance of 2 or more helpers is required for the patient to complete the activity. If activity was not attempted, code reason: 7-Patient Refused. 9-Not Applicable-not attempted and the patient did not perform the activity b efore the current illness, exacerbation or injury. 10-Not Attempted due to Environmental Limitations-(lack of equipment, weather restraints, etc.). 88-Not Attempted due to Medical Conditions or Safety Concerns. Sit to Stand (QC): 4 Weight Bearing Full Weight Bearing Full Weight Bearing Gait Training Does the Patient Walk?: Yes Distance: 250' Walk 10 feet (QC): 3 Walk 50 ft with 2 Turns(QC): 3 Walk 150 ft (QC): 3 Gait Persons Needed: 1 Gait Assistive Device: FWW A lot of VC & TC to prevent drifting and running into item during amb. Exercises Seated Therapy Exercises: Ankle pumps, Long arc quads, Hip flexion, Hip abd/add Seated Reps: 10 (2 sets of 10 reps) Treatments Pt sitting in recliner upon arrival. Nurse present and gives morning meds including pain med. Pt dons pants and completes 2 sit to stands. Pt amb. in hallway taking RB as needed for fatigue. Pt returns to room to rest in recliner then completes 2 sets of Seated Ex. Pt is repositioned in recliner and resting at end of tx, call light in lap. Assessment Current Status: Fair Progress A lot of VC & TC for drifting & prevention of running into items during amb. PT Short Term Goals Short Term Goals Time Frame: Jul 27, 2021 Roll Left & Right: 6 Sit to lyin Lying to sitting on side of be: 6 Sit to stand: 4 (SBA) Chair/qwe-ri-xcbmr transfer: 4 (CGA) Walk 10 feet: 4 (CGA) Walk 50 feet with two turns: 4 (CA) Walk 150 feet: 4 (CGA) PT Pneumatic Tester Mechanic Goals Pneumatic Tester Mechanic Goals PT Pneumatic Tester Mechanic Goals Time Frame: Aug 10, 2021 Roll Left & Right (QC): 6 Sit to Lying (QC): 6 Lying-Sitting on Side/Bed(QC): 6 Sit to Stand (QC): 5 Chair/Kmt-ox-Jvlcf Xfer(QC): 4 (SBA) Toilet Transfer (QC): 4 (SBA) Car Transfer (QC): 4 (SBA) Does the Patient Walk: Yes Walk 10 feet (QC): 4 (SBA) Walk 50ft with 2 Turns (QC): 4 (SBA) Walk 150 ft (QC): 4 (SBA) Walking 10ft on Uneven Surface: 4 (SBA) 1 Step (curb) (QC): 4 (SBA) 4 Steps (QC): 4 (SBA) 12 Steps (QC): 88 Picking up an Object (QC): 4 (SBA) Wheel 50 feet with 2 turns (QC: 9 Wheel 150 feet: 9 PT Plan Problem List Problem List: Activity Tolerance, Functional Strength, Safety, Gait Treatment/Plan Treatment Plan: Continue Plan of Care Treatment Plan: Bed Mobility, Education, Functional Activity Stella, Functional Strength, Group Therapy, Gait, Safety, Therapeutic Exercise, Transfers Treatment Duration: Aug 10, 2021 Frequency: At least 5 of 7 days/Wk (IRF) Estimated Hrs Per Day: 1.5 hours per day Patient and/or Family Agrees t: Yes Safety Risks/Education Patient Education: Gait Training, Correct Positioning, Safety Issues Teaching Recipient: Patient Teaching Methods: Discussion Response to Teaching: Reinforcement Needed Time/GCodes Time In: 800 Time Out: 915 Total Billed Treatment Time: 75 Total Billed Treatment 1,GT x2 (25m), FA (20m) & EX x2 (30m) JALEEL CRANDALL PTA Jul 21, 2021 09:12
[2021-07-21] MEDS: BRIMONIDINE 0.2% (ALPHAGAN) OPHTH SOLN 5 ML BTL OD SCH ×2 (09:34→21:45)
[2021-07-21] MEDS: DORZOLAMIDE/TIMOLOL (COSOPT) 2-0.68% 10 ML BTL OD SCH ×2 (09:47→21:48)
[2021-07-21] MEDS: polyethylene glycoL POWDER 17 GM (MIRALAX) PACK PO SCH ×3 (09:47→21:53)
[2021-07-21] MEDS: SENNA W/DOCUSATE (SENOKOT S) TABLET PO SCH ×2 (09:51→21:53)
--- NOTE | 2021-07-21 10:56 | Occupational Ther Daily Note ---
OT Current Status-Daily Note Subjective Pt in recliner. Pt agreeable to OT tx. Mental Status/Objective Patient Orientation: Person Attachments: Colostomy/Ileostomy (colostomy and urostomy) ADL-Treatment Therapy Code Descriptions/Definitions Functional [place] Measure: 0=Not Assessed/NA 4=Minimal Assistance 1=Total Assistance 5=Supervision or Setup 2=Maximal Assistance 6=Modified [place] 3=Moderate Assistance 7=Complete IndependenceSCALE: Activities may be completed with or without assistive devices. 3-Pycypflyps-fjoeanh completes the activity by him/herself with no assistance from a helper. 5-Set-up or Clean-up Assistance-helper sets up or cleans up; patient completes activity. [place] assists only prior to or following the activity. 4-Supervision or Touching Assistance-helper provides verbal cues and/or touching/steadying and/or contact guard assistance as patient completes activity. Assistance may be provided throughout the activity or intermittently. 3-Partial/Moderate Assistance-helper does LESS THAN HALF the effort. [place] lifts, holds or supports trunk or limbs, but provides less than half the effort. 2-Substantial/Maximal Assistance-helper does MORE THAN HALF the effort. [place] lifts or holds trunk or limbs and provides more than half the effort. 2-Ouvruiodh-rvynvo does ALL the effort. Patient does none of the effort to complete the activity. Or, the assistance of 2 or more helpers is required for the patient to complete the activity. If activity was not attempted, code reason: 7-Patient Refused. 9-Not Applicable-not attempted and the patient did not perform the activity before the current illness, exacerbation or injury. 10-Not Attempted due to Environmental Limitations-(lack of equipment, weather restraints, etc.). 88-Not Attempted due to Medical Conditions or Safety Concerns. Eating (QC): 5 (setup) Oral Hygiene (QC): 5 (setup) Bathing Location: L Arm, R Arm, L Upper Leg, R Upper Leg, L Lower Leg (including foot), R Lower Leg (including foot), Chest, Abdomen, Buttocks, Perineal Area Shower/Bathe Self (QC): 2 (max A to wash entire body besides face) Upper Body Dressing (QC): 3 (mod A to locate/place arms in sleeves and to pull shirt down in the back) Lower Body Dressing (QC): 2 (max A needed to thread pants over BLE and to pull them up.) On/Off Footwear: 1 (total assist ) Toileting Hygiene (QC): 1 (colostomy and urostomy bag) Toilet Transfer (QC): 1 (colostomy and urostomy bag) Other Treatment Pt in recliner. Pt transitioned from recliner to FWW, min A to stand, functional mobility to sc in bathroom. Pt doffed sweatshirt and tshirt, no assistance needed. Pt doffed pants, underwear socks and rome hose, max A needed. Pt completed showering, max A needed to clean entire body besides his face, verbal cues were given to initiate washing body, but Pt didn't initiate any movement. Pt transitioned from sc to chair in bathroom, min A for transfer. Pt donned shirt, sweatshirt, mod A needed to locate arm holes and to thread BUE through, assistance needed to fully pull shirt down. Pt donned underwear and pants, max A needed to thread BLE through and to pull up. Total assistance needed donned [place] hose and socks, . Pt put deodorant on, assistance needed to flip it the correct way and to pull the lid off. Pt transitioned from chair using FWW back to recliner in room, min A. Pt was educated on correct hand placement when locating a chair to sit in. Cue to scan toward R side required for ambulation and transfers. Pt in recliner, call light in reach, chair alarm on and all needs met. Education OT Patient Education: Correct positioning, Energy conservation, Modified ADL techniques, Progress toward Goal/Update tx plan, Purpose of tx/functional activities, Rehab process Teaching Recipient: Patient Teaching Methods: Demonstration, Discussion Response to Teaching: Verbalize Understanding, Return Demonstration, Reinforcement Needed OT Short Term Goals Short Term Goals Time Frame: Aug 04, 2021 Toileting hygiene: 3 Shower/bathe self: 3 Lower body dressin OT Correction Goals Correction Goals Time Frame: Aug 20, 2021 Eating (QC): 5 Oral Hygiene (QC): 5 Toileting Hygiene (QC): 4 Shower/Bathe Self (QC): 4 Upper Body Dressing (QC): 5 Lower Body Dressing (QC): 4 On/Off Footwear (QC): 4 Additional Goals: 1-Demonstrate ADL Tasks, 2-Verbalize Understanding, 3- ImproveStrength/Stella 1=Demonstrate adherence to instructed precautions during ADL tasks. 2=Patient will verbalize/demonstrate understanding of assistive devices/modifications for ADL. 3=Patient will improve strength/tolerance for activity to enable patient to perform ADL's. OT Education/Plan Problem List/Assessment Assessment: Decreased Activ Tolerance, Decreased UE Strength, Impaired Coordination, Impaired Funct Balance, Impaired I ADL's, Impaired Self-Care Skills, Visual-Perceptual Deficit Discharge Recommendations Plan/Recommendations: Continue POC Treatment Plan/Plan of Care Patient would benefit from OT for education, treatment and training to promote independence in ADL's, mobility, safety and/or upper extremity function for ADL's. Plan of Care: ADL Retraining, Functional Mobility, Group Exercise/Act as Ind, UE Funct Exercise/Act Treatment Duration: Aug 20, 2021 Frequency: At least 5 of 7 days/Wk (IRF) Estimated Hrs Per Day: 1.5 hours per day Agreement: Yes Rehab Potential: Guarded Time/GCodes Start Time: 10:15 Stop Time: 11:00 Total Time Billed (hr/min): 45 Billed Treatment Time 1, ADL 3 (45) LUCRETIA LAU Jul 21, 2021 10:56
--- NOTE | 2021-07-21 11:12 | ST Cognitive Linguistic Eval ---
Speech Evaluation-General Medical Diagnosis CVA Onset Date: Jul 13, 2021 Therapy Diagnosis Therapy Diagnosis: Suspected Cognitive Linguistic Impairment Precautions Precautions: Fall Precautions/Isolations: Standard Precautions Referral Referring Physician: Dr. Catrachita Snyder Reason for Referral: Evaluation/Treatment Medical History Current History The patient is a 71 year old male with a past medical history of bladder cancer, atrial fibrillation, CAD, HTN, high cholesterol, and GERD, who presented to [facility] with a diagnosis of severe debility following a procedure at for bladder cancer management. In March 2020 the patient underwent a TUR cystectomy with prostatectomy. In May 2020, the patient underwent a ileal conduit. The patient was found to have invasion into the rectum with colonic obstruction. On 07/12/21 the patient underwent a scheduled exploratory lap with colostomy and a stroke was activated on 07/13/21. The patient was found to have experienced a multifocal acute subacute bilateral cerebellar and cerebral infarcts with large left FERMENTOLOGIST territory infarct. To note, the overseer kosher kitchen contacted this clinician regarded the patient's modified diet consistency. To this clinician's knowledge, the diet consistency is secondary to recent medical procedures as prior speech language pathology documentation has not been received. If a concern is present for diet consistency due to an oropharyngeal swallowing dysfunction, please notify speech pathology for a formal swallowing evaluation. Reviewed History: Yes Social History Current Living Status: Spouse Speech PLF-Current Status Subjective The patient was seated upright in his recliner, eyes closed upon entrance by the clinician. The clinician and RN re-positioned the patient for improved comfort with the patient participating in limited verbal communication exchanges. Maximum, consistent verbal encouragement was required for limited participation and cooperation. The clinician verbally provided the rationale for a rehabilitation stay on multiple times to the patient. Language Eval: Auditory Comprehends Simple Yes/No Ques: Functional Indent/Objects Multiple Gamez: Functional Ident/Pics in Multiple Gamez: Functional Follows 1-Step Commands: Functional Language Eval: Verbal Language Completes Spontaneous Greeting: Functional Produces Auto, Serial Info: Functional Imitates Simple Words/Phrases: Functional The patient does not attempt response to word-finding questions or participation in complex conversation. Cognitive Patient Orientation The patient is not oriented to month, year, day of week, or date. Objective Cognitive Domain Attention: Severe Memory: Severe Problem Solving: Severe Objective Formal/Standardized Tests [facility] Mental Status ([facility]) Results The patient displayed results of +0/30 on the SLUMS. The patient's results appear secondary to reduced participation and cooperation rather than a true indication of cognitive linguistic function. Impression The clinician suspects a cognitive linguistic impairment, however, true measurement was unable to be obtained secondary to limited participation and cooperation. The clinician will continue attempts at standardized assessment completion. Speech Patient Assess Expression of Ideas/Wants: Frequently (2) Understanding Verbal Content: Sometimes Understands(2) Brief Interview-Mental Status: Yes Repetition of Three Words: Three (3) Temporal Orientation: Year: No answer (0) Temporal Orientation: Month: Missed by 6 days-1 month (1) Temporal Orientation: Day: Incorrect or No Answer(0) Recall : Wear to say "Sock": No, could not recall (0) Recall : Color: No, could not recall (0) Recall : Bed: No, could not recall (0) Memory/Recall Ability: None of the above were recalled Speech Short Term Goals Short Term Goals Short Term Goals 1. The patient will demonstrate increased attention to task, displaying appropriate attention for three minutes with moderate clinician verbal cueing. Speech Assisted Goals Technical Information Specialist Goals 1. The patient will demonstrate improved functional cognition for a safe return to the least restrictive environment. Speech-Plan Treatment Plan Speech Therapy Treatment Plan: Continue Plan of Care Treatment Duration: Aug 04, 2021 Frequency: 4 times per week (Four to five times per week. ) Estimated Hrs Per Day: .5 hour per day Rehab Potential: Guarded Pt/Family Agrees to Plan: Yes Safety Risks/Education Teaching Recipient: Patient Teaching Methods: Discussion Response to Teaching: Unable to Comprehend, Reinforcement Needed Education Topics Provided: Plan of Care, Rationale for Rehabilitation Time Speech Therapy Time In: 09:45 Speech Therapy Time Out: 10:15 Total Billed Time: 30 Billed Treatment Time 1, MADELINE HOUSTONMATTHEW BlancoNE[address] Jul 21, 2021 11:12
--- NOTE | 2021-07-21 12:23 | ST Dysphagia Evaluation ---
Speech Evaluation-General Medical Diagnosis CVA Onset Date: Jul 13, 2021 Therapy Diagnosis Therapy Diagnosis: Mild Oropharyngeal Dysphagia Precautions Precautions: Fall, Aspiration Precautions/Isolations: Standard Precautions Referral Referring Physician: Dr. Catrachita Snyder Reason for Referral: Evaluation/Treatment Medical History Current History The patient is a 71 year old male with a past medical history of bladder cancer, atrial fibrillation, CAD, HTN, high cholesterol, and GERD, who presented to [facility] with a diagnosis of severe debility following a procedure at for bladder cancer management. In March 2020 the patient underwent a TUR cystectomy with prostatectomy. In May 2020, the patient underwent a ileal conduit. The patient was found to have invasion into the rectum with colonic obstruction. On 07/12/21 the patient underwent a scheduled exploratory lap with colostomy and a stroke was activated on 07/13/21. The patient was found to have experienced a multifocal acute subacute bilateral cerebellar and cerebral infarcts with large left BARREL BUILDER territory infarct. To note, the real estate closing coordinator contacted this clinician regarded the patient's modified diet consistency. To this clinician's knowledge, the diet consistency is secondary to recent medical procedures as prior speech language pathology documentation has not been received. If a concern is present for diet consistency due to an oropharyngeal swallowing dysfunction, please notify speech pathology for a formal swallowing evaluation. Following the above note, the physician provided approval for a clinical bedside swallowing evaluation. Due to this, the clinician will perform one at this time. Reviewed History: Yes Social History Current Living Status: Spouse Speech PLF/Current-Dysphagia Prior Level of Function Per patient, he was consuming regular consistencies with thin liquids prior to hospitalization. Per visit with RN, the patient's family does report crushing of medication in puree for increased safety and ease. Subjective The patient was seated upright in his recliner upon entrance. The patient's lunch tray was present and the patient returned the clinician's verbal greeting. The patient was agreeable to participation in the clinical bedside swallowing evaluation. Cognitive Status Patient Orientation: Person, Confused Oral Motor Skills Dentition: Natural Current Food Consistancy: Dysphagia Soft, Thin Liquids Ability to Follow Directions: Good Oral Expression Ability: Moderate Impairment Voice Voice Phonatory-Based Quality: Weak Voice Loudness: Moderately Soft/Quiet Face Facial Symmetry: Symmetrical Oral-Facial Assessment Oral-Facial Dentition: Normal Labial Seal Description: Weak Smile: Normal Puff Cheeks: Reduced Strength Lingual Protrusion: Normal Lingual ROM: Normal Lingual Strength: Abnormal Volitional Dry Swallow: Yes Voluntary Cough: Yes Can Clear Throat Volitionally: Yes Productive Cough: Yes Productive Throat Clear: Yes Dysphagia Evaluation Consistencies Presented: Regular, Thin Liquid, Mechanical Soft, Pureed Oral Phase: Reduced Oral Transit Pharyngeal Phase: Delayed Swallow Dietary Recommendations: Regular Liquid Recommendations: Thin Recommendations: - Regular consistency diet with thin liquids, as tolerated. - Fully upright and alert for PO intake. - Set up assistance with meals due to vision difficulties. - Small bites and sips (consistently, independently demonstrated throughout the evaluation). - Alternate solids and liquids on a 1:1 ratio, as necessary. - Crush medication and place in puree for administration. - Cease PO intake with fatigue. - Monitor for s/s of suspected aspiration with PO intake. If demonstrated, contact speech pathology. - Speech pathology to continue dysphagia therapy four times per week. The results and recommendations were discussed with the patient and the RN. Both verbalized comprehension and denied additional questions for the clinician at this time. Swallowing Precautions: Alternate Liquids/Solids, Small Bites and Sips, Sitting 90 Degrees 30 Post Intake Dysphagia Evaluation Summary The patient was provided straw drinks of water and iced tea, teaspoons of ice cream, teaspoons of puree, pieces of kit cracker with puree, and pieces of kit cracker in isolation. The patient accepted the bolus from the straw and spoon appropriately. Prolonged bolus manipulation, mastication, and formation were appreciated, however, achieved. Delayed posterior transfer of bolus material was visualized with a suspected delayed pharyngeal swallow onset. The patient does display an intermittent facial grimace upon the swallow but continued to deny a globus sensation or odynophagia. The patient independently requests an alternating liquid bolus to solid consistencies to aid in oral cavity clearance. Overt s/s of suspected aspiration were not demonstrated with any consistency provided. Barriers to Learning Fatigue Speech Short Term Goals Short Term Goals Short Term Goals 1. The patient will demonstrate increased attention to task, displaying appropriate attention for three minutes with moderate clinician verbal cueing. 2. The patient will display compliance with safe swallowing practices with 90% accuracy, independently. Speech Business Operations Specialist Goals Fpc Goals 1. The patient will demonstrate improved functional cognition for a safe return to the least restrictive environment. 2. The patient will tolerate the least restrictive diet without s/s of suspected aspiration with 90% accuracy, independently. Speech-Plan Treatment Plan Speech Therapy Treatment Plan: Continue Plan of Care Treatment Duration: Aug 04, 2021 Frequency: 4 times per week (Four to five times per week. ) Estimated Hrs Per Day: .5 hour per day Rehab Potential: Guarded Pt/Family Agrees to Plan: Yes Safety Risks/Education Teaching Recipient: Patient Teaching Methods: Discussion Response to Teaching: Verbalize Understanding, Reinforcement Needed Education Topics Provided: Results and Recommendations of the Swallow Evaluation, Safe Swallowing Protocols Time Speech Therapy Time In: 11:56 Speech Therapy Time Out: 12:26 Total Billed Time: 30 Billed Treatment Time 1, JANE RAMIREZ [facility] ST Jul 21, 2021 12:22
[2021-07-21] MEDS: CALCIUM CARBONATE 500 MG (TUMS) TAB.CHEW PO PRN (13:25)
[2021-07-21] MEDS: FAMOTIDINE 20 MG (PEPCID) TABLET PO PRN (16:30)
--- NOTE | 2021-07-21 17:06 | Consultation - Surgery ---
DENISHA MARQUES 07/21/21 1706: History of Present Illness History of Present Illness Patient Consulted On(barry/time) 07/21/21 16:59 Date Seen by Provider: Jul 21, 2021 Time Seen by Provider: 01:00 Reason for Visit: Bright red blood in colostomy History of Present Illness Consult requested by internal medicine due to 50mL of bright red blood found in colostomy bag. Most of hx reported by and son. Pt was diagnosed with bladder carcinoma on 04/07/20, after which he underwent TURP and cystectomy/pros tatectomy with ileal conduit. It was discovered that the carcinoma had invaded the rectum and caused colon obstruction. He was scheduled on 07/12/21 for an exploratory lap w/ colostomy at . 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 The pt was transferred to [facility] [place] [facility] for therapy. We were consulted for the bright red blood that was first noticed in his colostomy bag yesterday. His Lovenox has been held. Similar bleeding occurred 4-5 days ago. The pt does not report any pain. He is drinking regularly, but lacks appetite. His is concerned that he seems to have trouble swallowing, often swallowing twice while eating. Pt has a very large bruise on the right side of his torso, reportedly from his stay at . Allergies and Home Medications Allergies Coded Allergies: chlorhexidine (Verified Allergy, Unknown, 07/20/21) erythromycin base (Verified Allergy, Unknown, 07/20/21) silver (Verified Allergy, Unknown, 07/20/21) Uncoded Allergies: tegaderm (Allergy, Unknown, 07/20/21) Patient Home Medication List Acetaminophen (Tylenol) 325 Mg Capsule, 975 MG PO Q8H PRN for PAIN-MILD (1-4), (Reported) Entered as Reported by: KEVIN GUIDO on 07/20/211420 Last Action: Converted Acetaminophen (Tylenol Extra Strength) 500 Mg Tablet, 500 MG PO Q6H PRN for PAIN-MILD (1-4), (Reported) Entered as Reported by: KEVIN GUIDO on 07/20/21 142 Last Action: Continued Aspirin (Aspirin EC) 81 Mg Tablet.dr, 81 MG PO HS, (Reported) Entered as Reported by: KEVIN GUIDO on 07/20/211420 Last Action: Continued Atenolol (Atenolol) 50 Mg Tablet, 50 MG PO DAILY, (Reported) Entered as Reported by: KEVIN GUIDO on 07/20/211420 Last Action: Continued Atorvastatin Calcium (Atorvastatin Calcium) 40 Mg Tablet, 40 MG PO DAILY, (Reported) Entered as Reported by: KEVIN GUIDO on 07/20/211420 Last Action: Continued Brimonidine Tartrate (Alphagan P) 5 Ml Drops, 1 DROP OD BID, (Reported) Entered as Reported by: KEVIN GUIDO on 07/20/211420 Last Action: Converted Cetirizine HCl (Cetirizine HCl) 10 Mg Tablet, 5 MG PO DAILY PRN for ALLERGY SYMPTOMS, (Reported) Entered as Reported by: KEVIN GUIDO on 07/20/211420 Last Action: Converted Dexamethasone (Dexamethasone) 4 Mg Tablet, 8 MG PO DAILY PRN for ON DAYS 2-4 OF CYCLE, (Reported) Entered as Reported by: KEVIN GUIDO on 07/20/211420 Last Action: Continued Dicyclomine HCl (Dicyclomine HCl) 10 Mg Capsule, 10 MG PO ACHS, (Reported) Entered as Reported by: KEVIN GUIDO on 07/20/211500 Last Action: Continued Dorzolamide HCl/Timolol Maleat (Cosopt Eye Drops) 10 Ml Drops, 1 DROP OD BID, (Reported) Entered as Reported by: KEVIN GUIDO on 07/20/211500 Last Action: Continued Famotidine (Pepcid) 20 Mg Tablet, 20 MG PO BID PRN for HEARTBURN, (Reported) Entered as Reported by: KEVIN GUIDO on 07/20/211420 Last Action: Continued Ketorolac Tromethamine (Acular) 5 Ml Drops, 1 DROP OD QID, (Reported) Entered as Reported by: KEVIN GUIDO on 07/20/211500 Last Action: Converted Latanoprost (Xalatan) 2.5 Ml Drops, 1 DROP OD HS, (Reported) Entered as Reported by: KEVIN GUIDO on 07/20/211420 Last Action: Continued Netarsudil Mesylate (Rhopressa) 2.5 Ml Drops, 1 DROP OU HS, (Reported) Entered as Reported by: KEVIN GUIDO on 07/20/21 150 Last Action: Converted Durham-3S/Dha/Epa/Fish Oil (Fish Oil Durham-3 Softgel) 1 Each Capsule.dr, 1 EACH PO DAILY, (Reported) Entered as Reported by: KEVIN GUIDO on 07/20/211420 Last Action: Converted Ondansetron HCl (Ondansetron HCl) 8 Mg Tablet, 8 MG PO Q8H PRN for NAUSEA/VOMITING-1ST LINE, (Reported) Entered as Reported by: KEVIN GUIDO on 07/20/211420 Last Action: Converted Polyethylene Glycol 3350 (Miralax) 17 Gm Powd.pack, 17 GM PO DAILY PRN for CONSTIPATION-2ND LINE, (Reported) Entered as Reported by: KEVIN GUIDO on 07/20/211420 Last Action: Continued Prednisolone Acetate (Prednisolone Acetate) 5 Ml Drops.susp, 1 DROP OD QID, (Reported) Entered as Reported by: KEVIN GUIDO on 07/20/211500 Last Action: Continued Sennosides/Docusate Sodium (Senna-S Tablet) 1 Each Tablet, 1 EACH PO DAILY PRN for CONSTIPATION-6TH LINE, (Reported) Entered as Reported by: KEVIN GUIDO on 07/20/211420 Last Action: Continued Tramadol HCl (Tramadol HCl) 50 Mg Tablet, 50 MG PO Q8H PRN for PAIN-MODERATE (5- 7), (Reported) Entered as Reported by: KEVIN GUIDO on 07/20/211420 Last Action: Continued Vit C/E/Zn/Coppr/Lutein/Zeaxan (Preservision Areds 2 Softgel) 1 Each Capsule, 2 EACH PO DAILY, (Reported) Entered as Reported by: KEVIN GUIDO on 07/20/211420 Last Action: Converted Past [id number]-Mgvmkq-Xregqv Hx Patient Social History Smoking Status: Never a Smoker Have you traveled recently?: No Immunizations Up To Date Date of Influenza Vaccine: Mar 19, 2021 Surgeries Surgeries: Abdominal Cardiovascular Cardiac Disorders: Atrial Fibrillation, Coronary Artery Disease, High Cholesterol, Hypertension Neurological Neurological Disorders: Stroke Genitourinary Genitourinary Disorders: Benign Prostatic Hyperpl, Bladder Infection Gastrointestinal Gastrointestinal Disorders: Gastroesophageal Reflux Musculoskeletal Musculoskeletal Disorders: Arthritis Cancer Cancer: Bladder Review of Systems-General Constitutional: No chills, No fever EENTM: vision loss (Right side); No hearing loss Respiratory: No cough, No short of breath Cardiovascular: No chest pain, No palpitations Gastrointestinal: No abdominal pain; loss of appetite, other (Blood in colostomy) Genitourinary: see HPI; No pain; other (had a cystectomy/prostatectomy) Musculoskeletal: joint pain (occasionally), muscle pain (occasionally) Skin: No dryness; other (large bruise on left torso) Psychiatric/Neurological: Denies Headache; Weakness (R side weakness, especially hand) Physical Exam-General Problems Physical Exam Vital Signs Vital Signs - First Documented 07/20/21 07/20/21 16:35 17:15 Temp 36.8 Pulse 68 Resp 18 B/P (MAP) 131/83 (99) Pulse Ox 95 O2 Delivery Room Air O2 Flow Rate 2.00 Capillary Refill : General Appearance: no apparent distress, thin Respiratory: lungs clear, normal breath sounds, no respiratory distress Cardiovascular: regular rate, rhythm, no murmur Gastrointestinal: other (BRB observed in colostomy) Neurologic/Psychiatric: alert, normal mood/affect, motor weakness, other (Requires help answering questions) Skin: other (Bruise L Torso) Data Review Labs Laboratory Tests 07/21/21 05:11: White Blood Count 10.4, Red Blood Count 4.05L, Hemoglobin 12.0L, Hematocrit 37L, Mean Corpuscular Volume 91, Mean Corpuscular Hemoglobin 30, Mean Corpuscular Hemoglobin Concent 33, Red Cell Distribution Width 15.3H, Platelet Count 242, Mean Platelet Volume 10.7, Immature Granulocyte % (Auto) 1, Neutrophils (%) (Auto) 85H, Lymphocytes (%) (Auto) 4L, Monocytes (%) (Auto) 8, Eosinophils (%) (Auto) 2, Basophils (%) (Auto) 0, Neutrophils # (Auto) 8.8H, Lymphocytes # (Auto) 0.4L, Monocytes # (Auto) 0.9, Eosinophils # (Auto) 0.2, Basophils # (Auto) 0.0, Immature Granulocyte # (Auto) 0.1, Sodium Level 137, Potassium Level 4.1, Chloride Level 106, Carbon Dioxide Level 19L, Anion Gap 12, Blood Urea Nitrogen 32H, Creatinine 0.94, Estimat Glomerular Filtration Rate 86, BUN/Creatinine Ratio 34, Glucose Level 97, Calcium Level 8.4L, Corrected Calcium 9.0, Total Bilirubin 0.9, Aspartate Amino Transf (AST/SGOT) 46H, Alanine Aminotransferase (ALT/SGPT) 26, Alkaline Phosphatase 76, Total Protein 5.8L, Albumin 3.2 07/21/21 11:12: Glucometer 100 Assessment/Plan Assessment/Plan Assessment/Plan GI bleed Gastritis Decreased appetite Metastatic bladder carcinoma Left ACCOUNTS RECEIVABLE EXECUTIVE infarct Bruising Swallowing issues Conservative management, started Protonix Continue to hold Lovenox Continue to monitor blood loss SARAH LANE DO 07/21/212049: History of Present Illness History of Present Illness History of Present Illness Consult requested by Dr. Snyder for bright red blood per colostomy. Patient is a 71-year-old male with history of bladder cancer. He has previously undergone cystectomy with ileal conduit. Patient recently underwent a diverting loop colostomy due to colonic obstruction. Patient with stroke during last admission. He was transferred to [place] for rehabilitation. Patient yesterday began having bright red blood through the colostomy. His family notes that during his last admission that he was having nausea and emesis. That the emesis was coffee-ground in nature. Patient currently is on Pepcid. He has no appetite. He has a lot of reflux complaints. Patient family notes that the output from the colostomy is not so much bright red any longer however is more darker in nature now. Patient on occasion will have some difficulty swallowing. Is also noted that he has a large bruise on the left flank. Hemoglobin is currently 12 Allergies and Home Medications Allergies Coded Allergies: chlorhexidine (Verified Allergy, Unknown, 07/20/21) erythromycin base (Verified Allergy, Unknown, 07/20/21) silver (Verified Allergy, Unknown, 07/20/21) Uncoded Allergies: tegaderm (Allergy, Unknown, 07/20/21) Patient Home Medication List Home Medication List Reviewed: Yes Acetaminophen (Tylenol) 325 Mg Capsule, 975 MG PO Q8H PRN for PAIN-MILD (1-4), (Reported) Entered as Reported by: KEVIN GUIDO on 07/20/21 7111 Last Action: Converted Acetaminophen (Tylenol Extra Strength) 500 Mg Tablet, 500 MG PO Q6H PRN for PAIN-MILD (1-4), (Reported) Entered as Reported by: KEVIN GUIDO on 07/20/211420 Last Action: Continued Aspirin (Aspirin EC) 81 Mg Tablet.dr, 81 MG PO HS, (Reported) Entered as Reported by: KEVIN GUIDO on 07/20/211420 Last Action: Continued Atenolol (Atenolol) 50 Mg Tablet, 50 MG PO DAILY, (Reported) Entered as Reported by: KEVIN GUIDO on 07/20/211420 Last Action: Continued Atorvastatin Calcium (Atorvastatin Calcium) 40 Mg Tablet, 40 MG PO DAILY, (Reported) Entered as Reported by: KEVIN GUIDO on 07/20/211420 Last Action: Continued Brimonidine Tartrate (Alphagan P) 5 Ml Drops, 1 DROP OD BID, (Reported) Entered as Reported by: KEVIN GUIDO on 07/20/211420 Last Action: Converted Cetirizine HCl (Cetirizine HCl) 10 Mg Tablet, 5 MG PO DAILY PRN for ALLERGY SYMPTOMS, (Reported) Entered as Reported by: KEVIN GUIDO on 07/20/211420 Last Action: Converted Dexamethasone (Dexamethasone) 4 Mg Tablet, 8 MG PO DAILY PRN for ON DAYS 2-4 OF CYCLE, (Reported) Entered as Reported by: KEVIN GUIDO on 07/20/211420 Last Action: Continued Dicyclomine HCl (Dicyclomine HCl) 10 Mg Capsule, 10 MG PO ACHS, (Reported) Entered as Reported by: KEVIN GUIDO on 07/20/211500 Last Action: Continued Dorzolamide HCl/Timolol Maleat (Cosopt Eye Drops) 10 Ml Drops, 1 DROP OD BID, (Reported) Entered as Reported by: KEVIN GUIDO on 07/20/211500 Last Action: Continued Famotidine (Pepcid) 20 Mg Tablet, 20 MG PO BID PRN for HEARTBURN, (Reported) Entered as Reported by: KEVIN GUIDO on 07/20/211420 Last Action: Continued Ketorolac Tromethamine (Acular) 5 Ml Drops, 1 DROP OD QID, (Reported) Entered as Reported by: KEVIN GUIDO on 07/20/211500 Last Action: Converted Latanoprost (Xalatan) 2.5 Ml Drops, 1 DROP OD HS, (Reported) Entered as Reported by: KEVIN GUIDO on 07/20/211420 Last Action: Continued Netarsudil Mesylate (Rhopressa) 2.5 Ml Drops, 1 DROP OU HS, (Reported) Entered as Reported by: KEVIN GUIDO on 07/20/21 1504 Last Action: Converted Durham-3S/Dha/Epa/Fish Oil (Fish Oil Durham-3 Softgel) 1 Each Capsule.dr, 1 EACH PO DAILY, (Reported) Entered as Reported by: KEVIN GUIDO on 07/20/211420 Last Action: Converted Ondansetron HCl (Ondansetron HCl) 8 Mg Tablet, 8 MG PO Q8H PRN for NAUSEA/VOMITING-1ST LINE, (Reported) Entered as Reported by: KEVIN GUIDO on 07/20/211420 Last Action: Converted Polyethylene Glycol 3350 (Miralax) 17 Gm Powd.pack, 17 GM PO DAILY PRN for CONSTIPATION-2ND LINE, (Reported) Entered as Reported by: KEVIN GUIDO on 07/20/211420 Last Action: Continued Prednisolone Acetate (Prednisolone Acetate) 5 Ml Drops.susp, 1 DROP OD QID, (Reported) Entered as Reported by: KEVIN GUIDO on 07/20/21 150 Last Action: Continued Sennosides/Docusate Sodium (Senna-S Tablet) 1 Each Tablet, 1 EACH PO DAILY PRN for CONSTIPATION-6TH LINE, (Reported) Entered as Reported by: KEVIN GUIDO on 07/20/211420 Last Action: Continued Tramadol HCl (Tramadol HCl) 50 Mg Tablet, 50 MG PO Q8H PRN for PAIN-MODERATE (5- 7), (Reported) Entered as Reported by: KEVIN GUIDO on 07/20/211420 Last Action: Continued Vit C/E/Zn/Coppr/Lutein/Zeaxan (Preservision Areds 2 Softgel) 1 Each Capsule, 2 EACH PO DAILY, (Reported) Entered as Reported by: KEVIN GUIDO on 07/20/211420 Last Action: Converted Past Bksckup-Mscfyq-Enrucb Hx Surgeries History of Surgeries: Yes Surgeries: Bladder Surgery, Bowel Surgery Reviewed Nursing Assessment Reviewed/Agree w Nursing PMH: Yes Family Medical History Significant Family History: No Pertinent Family Hx Review of Systems-General Constitutional: No chills, No fever EENTM: vision loss (Right side); No hearing loss Respiratory: No cough, No short of breath Cardiovascular: No chest pain, No palpitations Gastrointestinal: No abdominal pain; loss of appetite, other (Blood in colostomy) Genitourinary: No pain; other (had a cystectomy/prostatectomy) Musculoskeletal: joint pain (occasionally), muscle pain (occasionally) Skin: No dryness; other (large bruise on left torso) Psychiatric/Neurological: Denies Anxiety, Denies Depressed, Denies Emotional Problems, Denies Headache; Weakness (R side weakness, especially hand) All Other Systems Reviewed Negative Unless Noted: Yes (Negative excepted noted.) Physical Exam-General Problems Physical Exam General Appearance: no apparent distress, thin HEENT: normal ENT inspection Neck: supple, normal inspection Respiratory: chest non-tender, no respiratory distress, no accessory muscle use Cardiovascular: regular rate, rhythm, no JVD Gastrointestinal: non tender, soft, other (Darker output from colostomy left lower quadrant. The colostomy itself appears to be a loop colostomy with some edema and blood clot present appears viable, urostomy right lower quadrant) Rectal: deferred Back: no CVA tenderness, other (Bruise left flank) Extremities: non-tender, other (Significant weakness) Neurologic/Psychiatric: alert, motor weakness, other (Requires help answering questions) Skin: warm/dry, other (Bruise L flank) Lymphatic: no adenopathy Assessment/Plan Assessment/Plan Assessment/Plan GI bleed upper versus lower GERD with recent history of coffee-ground emesis Gastritis Decreased appetite Metastatic bladder carcinoma Left ACCOUNTS RECEIVABLE EXECUTIVE infarct Bruising Swallowing issues Patient on Pepcid will also add Protonix 40 mg daily. Follow hemoglobin transfuse PRBC as needed. The loop colostomy has some edema but it appears to b e viable. Continue to monitor. No surgical intervention at this time. Supervisory-Addendum Brief Verification & Attestation Participated in pt care: history, MDM, physical Personally performed: exam, history, MDM, supervision of care Care discussed with: Medical Student Procedures: n/a Results interpretation: Verified all documentation Verification and Attestation of Medical Student E/M Service A medical student performed and documented this service in my presence. I revi ewed and verified all information documented by the medical student and made modifications to such information, when appropriate. I personally performed the physical exam and medical decision making. Sarah Lane, Jul 21, 2021,20:53 DENISHA MARQUES Jul 21, 2021 17:[address] DO Jul 21, 2021 20:50
[2021-07-21 20:16] VITALS: BP 130/78
[2021-07-21] MEDS: PANTOPRAZOLE 40 MG (PROTONIX) VIAL IV SCH (21:30)
[2021-07-21] MEDS: ASPIRIN E.C. 81 MG (ECOTRIN) TAB PO SCH (21:37)
[2021-07-21] MEDS: LATANOPROST 0.005% (XALATAN) OPHTH SOLN 2.5 ML OD SCH (21:41)
[2021-07-22 05:59] LABS: HEMATOCRIT 37 % (40-54); HEMOGLOBIN 11.9 g/dL (13.3-17.7); MEAN CORPUSCULAR HEMOGLOBIN 30 pg (25-34); MEAN CORPUSCULAR HGB CONC 32 g/dL (32-36); MEAN CORPUSCULAR VOLUME 93 fL (80-99); MEAN PLATELET VOLUME 10.3 fL (9.0-12.2); PLATELET COUNT 212 10^3/uL (130-400)
[2021-07-22] MEDS: DICYCLOMINE 10 MG (BENTYL) CAP PO SCH ×4 (06:42→20:31)
[2021-07-22] MEDS: MULTIVIT W/MINERALS TAB (THERAGRAN M) PO SCH (06:42)
--- NOTE | 2021-07-22 07:00 | Progress Note - Surgery ---
DENISHA MARQUES 07/22/21 0700: Subjective Date Seen by a Provider: Jul 22, 2021 Time Seen by a Provider: 06:45 Subjective/Events-last exam Pt more talkative this morning. Speech met with him yesterday regarding his swallowing issues, suspect delayed pharyngeal swallow. Reports that he is feeling ok and in no pain. He states he is drinking and eating, despite concerns about his appetite. There is blood in his colostomy bag, a mix of dark and bright red blood. Review of Systems General: No Chills; Fatigue, Malaise HEENT: No Head Aches; Visual Changes (blurry vision bilat) Pulmonary: No Dyspnea, No Cough Cardiovascular: No: Chest Pain, Palpitations Gastrointestinal: Nausea, Melena; No: Abdominal Pain Neurological: No: Weakness Focused Exam Respiratory: Lungs Clear, Normal Breath Sounds, No Accessory Muscle Use Cardiovascular: Regular Rate, Rhythm, No Edema Peripheral Pulses: 3+ Radial Pulses (R), 3+ Radial Pulses (L) Skin: normal color, warm/dry Objective Exam Vital Signs Date Time Temp Pulse Resp B/P (MAP) Pulse Ox O2 Delivery O2 Flow Rate FiO2 07/21/21 21:40 91 Room Air 07/21/21 20:16 36.4 64 18 130/78 (95) 91 Room Air 07/21/21 09:00 Room Air 07/21/21 07:35 36.5 82 20 147/96 (113) 92 Nasal Cannula 1.50 07/21/21 07:25 Nasal Cannula 2.00 I & O 07/22/21 07:00 Intake Total 650 ml Output Total 950 ml Balance -300 ml Capillary Refill : General Appearance: No Apparent Distress, Chronically ill, Thin, Other (Very debilitated) HEENT: PERRL/EOMI, Normal ENT Inspection Neck: Full Range of Motion, Normal Inspection, Non Tender, Supple Respiratory: Chest Non Tender, Lungs Clear, Normal Breath Sounds, No Accessory Muscle Use, No Respiratory Distress Cardiovascular: Regular Rate, Rhythm, No Edema, No Gallop, No JVD, No Murmur, Normal Peripheral Pulses Gastrointestinal: non tender, soft, other (Darker output from colostomy left lower quadrant. The colostomy itself appears to be a loop colostomy with some edema and blood clot present appears viable, urostomy right lower quadrant) Extremity: Normal Inspection, No Pedal Edema Neurologic/Psychiatric: Alert, Oriented x3, Depressed Affect, Motor Weakness (Right-sided) Skin: Normal Color, Warm/Dry Lymphatic: No Adenopathy Results Lab Laboratory Tests 07/21/21 11:12: Glucometer 100 07/22/21 05:45: White Blood Count 13.0H, Red Blood Count 3.95L, Hemoglobin 11.9L, Hematocrit 37L , Mean Corpuscular Volume 93, Mean Corpuscular Hemoglobin 30, Mean Corpuscular Hemoglobin Concent 32, Red Cell Distribution Width 15.6H, Platelet Count 212, Mean Platelet Volume 10.3 Assessment/Plan Assessment/Plan Assessment/Plan GI bleed upper versus lower GERD with recent history of coffee-ground emesis Gastritis Decreased appetite Metastatic bladder carcinoma Left FUR TRAPPER infarct Bruising Swallowing issues Patient on Pepcid, added Protonix 40 mg daily Follow hemoglobin, transfuse PRBC as needed Loop colostomy has some edema but it appears to be viable Continue to monitor; WBC elevation to 13.0 today (10.4 yesterday) No surgical intervention at this time. SARAH SCOTT DO 07/22/21 1636: Subjective Subjective/Events-last exam Patient hgb stable. Not much appetite. Reflux unchanged. Blood tinged output from colostomy that is darker in color. No new complaints. Denies n/v fever sweats chills shortness of breath or chest pain. Assessment/Plan Assessment/Plan Assessment/Plan GI bleed upper versus lower GERD with recent history of coffee-ground emesis Gastritis Decreased appetite Metastatic bladder carcinoma Left FUR TRAPPER infarct Bruising Swallowing issues Patient on Pepcid, added Protonix 40 mg daily Follow hemoglobin, transfuse PRBC as needed Loop colostomy has some edema but it appears to be viable Continue to monitor; WBC elevation to 13.0 today (10.4 yesterday) No surgical intervention at this time. Hgb stable. No appetite, encouraged intake. Supervisory-Addendum Brief Verification & Attestation Participated in pt care: history, MDM, physical Personally performed: exam, history, MDM, supervision of care Care discussed with: Medical Student Procedures: n/a Results interpretation: Verified all documentation Verification and Attestation of Medical Student E/M Service A medical student performed and documented this service in my presence. I reviewed and verified all information documented by the medical student and made modifications to such information, when appropriate. I personally performed the physical exam and medical decision making. Sarah Scott, Jul 22, 2021,16:36 DENISHA MARQUES Jul 22, 2021 07:00 SARAH SCOTT DO Jul 22, 2021 16:36
[2021-07-22 08:00] VITALS: BP 124/78
[2021-07-22] MEDS: polyethylene glycoL POWDER 17 GM (MIRALAX) PACK PO SCH ×2 (10:12→21:00)
[2021-07-22] MEDS: OMEGA 3 (FISH OIL) 1000 MG CAP PO SCH (10:12)
[2021-07-22] MEDS: DOCUSATE SODIUM 100 MG (COLACE) CAP PO SCH ×2 (10:12→20:30)
[2021-07-22] MEDS: ATENOLOL 50 MG (TENORMIN) TAB PO SCH (10:12)
[2021-07-22] MEDS: SENNA W/DOCUSATE (SENOKOT S) TABLET PO SCH ×2 (10:12→20:30)
[2021-07-22] MEDS: PANTOPRAZOLE 40 MG (PROTONIX) VIAL IV SCH ×2 (10:12→20:31)
--- NOTE | 2021-07-22 10:42 | Physical Therapy Daily Note ---
PT Daily Note-Current Subjective Pt agreeable. Pt answers all questions, head remains down eyes closed much of the treatment session. Pt states "I need to sit" and progresses to sit unless cued to remain standing until chair in place behind pt. Mental Status Patient Orientation: Person, Place, Situation Transfers SCALE: Activities may be completed with or without assistive devices. 3-Bcuaqztkrk-iyujfeq completes the activity by him/herself with no assistance from a helper. 5-Set-up or Clean-up Assistance-helper sets up or cleans up; patient completes activity. [place] assists only prior to or following the activity. 4-Supervision or Touching Assistance-helper provides verbal cues and/or touching/steadying and/or contact guard assistance as patient completes activity. Assistance may be provided throughout the activity or intermittently. 3-Partial/Moderate Assistance-helper does LESS THAN HALF the effort. [place] lifts, holds or supports trunk or limbs, but provides less than half the effort. 2-Substantial/Maximal Assistance-helper does MORE THAN HALF the effort. [place] lifts or holds trunk or limbs and provides more than half the effort. 0-Mnyloikoj-mrbqrw does ALL the effort. Patient does none of the effort to complete the activity. Or, the assistance of 2 or more helpers is required for the patient to complete the activity. If activity was not attempted, code reason: 7-Patient Refused. 9-Not Applicable-not attempted and the patient did not perform the activity before the current illness, exacerbation or injury. 10-Not Attempted due to Environmental Limitations-(lack of equipment, weather restraints, etc.). 88-Not Attempted due to Medical Conditions or Safety Concerns. Transfers mod (I) Weight Bearing Full Weight Bearing Full Weight Bearing Gait Training Gait Assistive Device: FWW Pt amb with manual assist to manage walker and continual vc's to maintain straight path. Pt tends to run into obstacle on the R and the L, unable to walk straight path. Pt amb with FWW and CGA x 250ft. Balance Special Test Comments Pt stood at //bars performing ring task to address balance, coordination, tracking of the eyes. Pt required hand on hand assist to reach across midline to each ring. Pt was asked to indicate color of the ring. Pt was indicating wrong color and often said "plane" as a color. Pt was then instructed to count each ring as he moved them. Pt was able to count each ring accurately. Exercises Seated Therapy Exercises: Ankle pumps, Long arc quads, Hip flexion Seated Reps: 20 NuStep Minutes: 6 NuStep Workload: 1 Neuromuscular Pt was able to perform 3 bouts of 2' on Nu-step. Pt fatigued very quickly requiring 2-3min rest breaks between. Treatments Pt back to recliner with call light, ambu alarm activated. Pt family present. Assessment Current Status: Fair Progress Pt able to particpate with frequent rest breaks due to poor endurance. Pt requires manual, tactile and vc's for direction and functional mobility. Pt tends to sit prematurely, unable to problem solve when he walks into obstacles or when he is facing a chair and instructed to sit. Pt was unable to padma his shoes as well due to poor problem solving and poor coordination. Pt able to find targets with his eyes about 50% of the time but unable to track with his eyes. Pt will benefit from continued strengthening, tracking and problem solving tasks. PT Short Term Goals Short Term Goals Time Frame: Jul 27, 2021 Roll Left & Right: 6 Sit to lyin Lying to sitting on side of be: 6 Sit to stand: 4 (SBA) Chair/lzf-cd-wbdfp transfer: 4 (CGA) Walk 10 feet: 4 (CGA) Walk 50 feet with two turns: 4 (CA) Walk 150 feet: 4 (CGA) PT [facility] Goals Residential Goals PT Residential Goals Time Frame: Aug 10, 2021 Roll Left & Right (QC): 6 Sit to Lying (QC): 6 Lying-Sitting on Side/Bed(QC): 6 Sit to Stand (QC): 5 Chair/Kbb-be-Vcxka Xfer(QC): 4 (SBA) Toilet Transfer (QC): 4 (SBA) Car Transfer (QC): 4 (SBA) Does the Patient Walk: Yes Walk 10 feet (QC): 4 (SBA) Walk 50ft with 2 Turns (QC): 4 (SBA) Walk 150 ft (QC): 4 (SBA) Walking 10ft on Uneven Surface: 4 (SBA) 1 Step (curb) (QC): 4 (SBA) 4 Steps (QC): 4 (SBA) 12 Steps (QC): 88 Picking up an Object (QC): 4 (SBA) Wheel 50 feet with 2 turns (QC: 9 Wheel 150 feet: 9 PT Plan Treatment/Plan Treatment Plan: Continue Plan of Care Treatment Plan: Bed Mobility, Education, Functional Activity Stella, Functional Strength, Group Therapy, Gait, Safety, Therapeutic Exercise, Transfers Treatment Duration: Aug 10, 2021 Frequency: At least 5 of 7 days/Wk (IRF) Estimated Hrs Per Day: 1.5 hours per day Patient and/or Family Agrees t: Yes Time/GCodes Time In: 815 Time Out: 930 Total Billed Treatment Time: 75 Total Billed Treatment 1, Ther ex 30', Gait 30', FA 15' MIKE STEELE CPTA Jul 22, 2021 10:42
--- NOTE | 2021-07-22 11:34 | Occupational Ther Daily Note ---
OT Current Status-Daily Note Subjective Pt denies pain. Slow processing vs behavioral. "I just like to make people wait." Appearance Returned to sitting in chair, all needs within reach, family in room, alarm set. Mental Status/Objective Patient Orientation: Person Attachments: Colostomy/Ileostomy, Gonzalez Catheter, IV ADL-Treatment Therapy Code Descriptions/Definitions Functional [place] Measure: 0=Not Assessed/NA 4=Minimal Assistance 1=Total Assistance 5=Supervision or Setup 2=Maximal Assistance 6=Modified [place] 3=Moderate Assistance 7=Complete IndependenceSCALE: Activities may be completed with or without assistive devices. 4-Oxqlqcadda-ddfbsqf completes the activity by him/herself with no assistance from a helper. 5-Set-up or Clean-up Assistance-helper sets up or cleans up; patient completes activity. [place] assists only prior to or following the activity. 4-Supervision or Touching Assistance-helper provides verbal cues and/or touching/steadying and/or contact guard assistance as patient completes activity. Assistance may be provided throughout the activity or intermittently. 3-Partial/Moderate Assistance-helper does LESS THAN HALF the effort. [place] lifts, holds or supports trunk or limbs, but provides less than half the effort. 2-Substantial/Maximal Assistance-helper does MORE THAN HALF the effort. [place] lifts or holds trunk or limbs and provides more than half the effort. 7-Jwetovfbw-kyeamk does ALL the effort. Patient does none of the effort to complete the activity. Or, the assistance of 2 or more helpers is required for the patient to complete the activity. If activity was not attempted, code reason: 7-Patient Refused. 9-Not Applicable-not attempted and the patient did not perform the activity before the current illness, exacerbation or injury. 10-Not Attempted due to Environmental Limitations-(lack of equipment, weather restraints, etc.). 88-Not Attempted due to Medical Conditions or Safety Concerns. Oral Hygiene (QC): 3 Upper Body Dressing (QC): 2 Lower Body Dressing (QC): 2 On/Off Footwear: 2 Toileting Hygiene (QC): 1 (colostomy and urostomy) Toilet Transfer (QC): 1 (colostomy and urostomy) Pt sitting in chair. Clothes doffed and new clothing donned. Cues and extra time to initiate. Unsure if related to slow processing speed or behavioral or combination of both; "I just like to make people wait." Cues for correct orientation of clothing. Pt impulsive with task and often attempts to don shirt overhead before finishing threading of arms. Assist then needed to stick puller shoulder and around back. Max cues for sequencing. Dependent to thread catheter bagging through pant leg. Again, pt is impulsive and requires assist and cues for attention/awareness with catheter tubing. Max A to thread BLE's into pants leg. SBA to stand, tactile cues to initiate clothing management. Pt ambulated to/from bathroom, max cues for walker management. Little effort to follow commands. OT to intervene with HOHA to correctly manage walker. Pt stood at sink for oral care. Max verbal cues and HOHA to locate supplies and sequence steps. Family in room throughout session. Family often attempting to jump in to assist or raise voice when patient does something incorrectly. Family will need further education on stroke management and allowing pt time to perform/problem solve through tasks. Other Treatment Standing activity performed at sink. Goal to improve sequencing, standing tolerance, visual attention/memory, reaching, cognition, safety, and scanning. Initial goal to stand and erase 1-10 written in an unorganized scan pattern on mirror. Activity downgraded to 1-4 and pt just verbalizing what number therapist was pointing at. Pt often looking down and attempting to use eraser on the inside of the sink or the side of the wall. Cues/assist included: to attend to mirror, for correct grasp of eraser, HOHA to bring eraser to mirror and reach in correct direction. Pt unable to follow directional cues. When OT pointed to numbers, he was able to verbalize number correctly. As fatigue increases, pt loses more focus and begins to sink further into flexion. Step by step cues needed to return to recliner safely. Education OT Patient Education: Correct positioning, Disease process, Instructions to caregiver, Modified ADL techniques, Purpose of tx/functional activities, Rehab process, Safety issues, Transfer techniques Teaching Recipient: Patient, Family Teaching Methods: Demonstration, Discussion Response to Teaching: Reinforcement Needed OT Short Term Goals Short Term Goals Time Frame: Aug 04, 2021 Toileting hygiene: 3 Shower/bathe self: 3 Lower body dressin OT Senior Restaurant Manager Goals Senior Restaurant Manager Goals Time Frame: Aug 20, 2021 Eating (QC): 5 Oral Hygiene (QC): 5 Toileting Hygiene (QC): 4 Shower/Bathe Self (QC): 4 Upper Body Dressing (QC): 5 Lower Body Dressing (QC): 4 On/Off Footwear (QC): 4 Additional Goals: 1-Demonstrate ADL Tasks, 2-Verbalize Understanding, 3-Imp roveStrength/Stella 1=Demonstrate adherence to instructed precautions during ADL tasks. 2=Patient will verbalize/demonstrate understanding of assistive devices/modifications for ADL. 3=Patient will improve strength/tolerance for activity to enable patient to perform ADL's. OT Education/Plan Problem List/Assessment Assessment: Decreased Activ Tolerance, Decreased Safety Aware, Decreased UE Strength, Impaired Cognition, Impaired Coordination, Impaired Funct Balance, Impaired I ADL's, Impaired Self-Care Skills, Visual-Perceptual Deficit Discharge Recommendations Plan/Recommendations: Continue POC Treatment Plan/Plan of Care Treatment,Training & Education: Yes Patient would benefit from OT for education, treatment and training to promote independence in ADL's, mobility, safety and/or upper extremity function for ADL's. Plan of Care: ADL Retraining, Functional Mobility, Group Exercise/Act as Ind, UE Funct Exercise/Act Treatment Duration: Aug 20, 2021 Frequency: At least 5 of 7 days/Wk (IRF) Estimated Hrs Per Day: 1.5 hours per day Agreement: Yes Rehab Potential: Guarded Time/GCodes Start Time: 10:15 Stop Time: 11:30 Total Time Billed (hr/min): 75 Billed Treatment Time 1 visit ADL x4 (60 min) FA (15 min) Tracy Robles OT Jul 22, 2021 11:34
[2021-07-22] MEDS: BRIMONIDINE 0.2% (ALPHAGAN) OPHTH SOLN 5 ML BTL OD SCH ×2 (13:03→20:32)
[2021-07-22] MEDS: prednisoLONE 1% OPTH (PRED FORTE) 5 ML BTL OD SCH ×4 (13:04→20:31)
[2021-07-22] MEDS: DORZOLAMIDE/TIMOLOL (COSOPT) 2-0.68% 10 ML BTL OD SCH ×2 (13:05→20:31)
--- NOTE | 2021-07-22 13:25 | Occupational Ther Daily Note ---
OT Current Status-Daily Note Subjective Consistent cues to stay focused as pt often closing eyes; verbalizes fatigue. Appearance Left sitting in recliner, all needs within reach, family in room. Mental Status/Objective Patient Orientation: Person, Confused ADL-Treatment Therapy Code Descriptions/Definitions Functional [place] Measure: 0=Not Assessed/NA 4=Minimal Assistance 1=Total Assistance 5=Supervision or Setup 2=Maximal Assistance 6=Modified [place] 3=Moderate Assistance 7=Complete IndependenceSCALE: Activities may be completed with or without assistive devices. 0-Oqxmlzvfty-avewwvm completes the activity by him/herself with no assistance from a helper. 5-Set-up or Clean-up Assistance-helper sets up or cleans up; patient completes activity. [place] assists only prior to or following the activity. 4-Supervision or Touching Assistance-helper provides verbal cues and/or touching/steadying and/or contact guard assistance as patient completes activity. Assistance may be provided throughout the activity or intermittently. 3-Partial/Moderate Assistance-helper does LESS THAN HALF the effort. [place] lifts, holds or supports trunk or limbs, but provides less than half the effort. 2-Substantial/Maximal Assistance-helper does MORE THAN HALF the effort. [place] lifts or holds trunk or limbs and provides more than half the effort. 9-Ydilfpesf-itcsei does ALL the effort. Patient does none of the effort to complete the activity. Or, the assistance of 2 or more helpers is required for the patient to complete the activity. If activity was not attempted, code reason: 7-Patient Refused. 9-Not Applicable-not attempted and the patient did not perform the activity before the current illness, exacerbation or injury. 10-Not Attempted due to Environmental Limitations-(lack of equipment, weather restraints, etc.). 88-Not Attempted due to Medical Conditions or Safety Concerns. Other Treatment Pt participated in UE exercises with 2# hand held weight. Mod visual and tactile cues for correct technique. Pt has tendency to speed up after ~5-6 reps. Cues for slow controlled movement. All movements performed to full range. 10x1 in all planes. Education OT Patient Education: Correct positioning, Exercise program, Safety issues Teaching Recipient: Patient, Family Teaching Methods: Demonstration, Discussion Response to Teaching: Reinforcement Needed OT Short Term Goals Short Term Goals Time Frame: Aug 04, 2021 Toileting hygiene: 3 Shower/bathe self: 3 Lower body dressin OT Filteration Operator Goals Correction Goals Time Frame: Aug 20, 2021 Eating (QC): 5 Oral Hygiene (QC): 5 Toileting Hygiene (QC): 4 Shower/Bathe Self (QC): 4 Upper Body Dressing (QC): 5 Lower Body Dressing (QC): 4 On/Off Footwear (QC): 4 Additional Goals: 1-Demonstrate ADL Tasks, 2-Verbalize Understanding, 3- ImproveStrength/Stella 1=Demonstrate adherence to instructed precautions during ADL tasks. 2=Patient will verbalize/demonstrate understanding of assistive devices/modifications for ADL. 3=Patient will improve strength/tolerance for activity to enable patient to perform ADL's. OT Education/Plan Problem List/Assessment Assessment: Decreased Activ Tolerance, Decreased UE Strength, Impaired Cognition, Impaired Funct Balance, Impaired I ADL's, Impaired Self-Care Skills Discharge Recommendations Plan/Recommendations: Continue POC Treatment Plan/Plan of Care Treatment,Training & Education: Yes Patient would benefit from OT for education, treatment and training to promote independence in ADL's, mobility, safety and/or upper extremity function for ADL's. Plan of Care: ADL Retraining, Functional Mobility, Group Exercise/Act as Ind, UE Funct Exercise/Act Treatment Duration: Aug 20, 2021 Frequency: At least 5 of 7 days/Wk (IRF) Estimated Hrs Per Day: 1.5 hours per day Agreement: Yes Rehab Potential: Guarded Time/GCodes Start Time: 13:00 Stop Time: 13:20 Total Time Billed (hr/min): 20 Billed Treatment Time 1 visit EX Tracy Robles OT Jul 22, 2021 13:25
--- NOTE | 2021-07-22 13:48 | Physical Therapy Daily Note ---
PT Daily Note-Current Subjective Patient in recliner pre tx, agrees to PT, states he is very tired and would like to go to bed when done, has no complaints of pain. Appearance Patient in bed post tx with nurse call, phone, tray, bed alarm on, in room. Mental Status Patient Orientation: Person, Confused Attachments: Colostomy/Ileostomy, Gonzalez Catheter Transfers SCALE: Activities may be completed with or without assistive devices. 3-Qsigqlyqsi-efhgwxr completes the activity by him/herself with no assistance from a helper. 5-Set-up or Clean-up Assistance-helper sets up or cleans up; patient completes activity. [place] assists only prior to or following the activity. 4-Supervision or Touching Assistance-helper provides verbal cues and/or touching/steadying and/or contact guard assistance as patient completes activity. Assistance may be provided throughout the activity or intermittently. 3-Partial/Moderate Assistance-helper does LESS THAN HALF the effort. [place] lifts, holds or supports trunk or limbs, but provides less than half the effort. 2-Substantial/Maximal Assistance-helper does MORE THAN HALF the effort. [place] lifts or holds trunk or limbs and provides more than half the effort. 4-Vxvzvxsmc-qvsnxp does ALL the effort. Patient does none of the effort to complete the activity. Or, the assistance of 2 or more helpers is required for the patient to complete the activity. If activity was not attempted, code reason: 7-Patient Refused. 9-Not Applicable-not attempted and the patient did not perform the activity before the current illness, exacerbation or injury. 10-Not Attempted due to Environmental Limitations-(lack of equipment, weather restraints, etc.). 88-Not Attempted due to Medical Conditions or Safety Concerns. Sit to Stand (QC): 4 Chair/Tfg-pv-Ivlgm Xfer(QC): 4 Patient needs cues for direction with transfers due to visual changes Weight Bearing Full Weight Bearing Full Weight Bearing Exercises Seated Therapy Exercises: Ankle pumps, Long arc quads, Hip flexion, Hip abd/add Seated Reps: 20 Treatments transfers, bed mobility, LE strengthening Assessment Current Status: Fair Progress patient performed well, he was able to scoot himself up in bed with help positioning PT Short Term Goals Short Term Goals Time Frame: Jul 27, 2021 Roll Left & Right: 6 Sit to lyin Lying to sitting on side of be: 6 Sit to stand: 4 (SBA) Chair/nvw-sd-uhkgz transfer: 4 (CGA) Walk 10 feet: 4 (CGA) Walk 50 feet with two turns: 4 (CA) Walk 150 feet: 4 (CGA) PT Epic Kaleidoscope Analyst Goals Longterm Goals PT Epic Kaleidoscope Analyst Goals Time Frame: Aug 10, 2021 Roll Left & Right (QC): 6 Sit to Lying (QC): 6 Lying-Sitting on Side/Bed(QC): 6 Sit to Stand (QC): 5 Chair/Kyk-dd-Agjjq Xfer(QC): 4 (SBA) Toilet Transfer (QC): 4 (SBA) Car Transfer (QC): 4 (SBA) Does the Patient Walk: Yes Walk 10 feet (QC): 4 (SBA) Walk 50ft with 2 Turns (QC): 4 (SBA) Walk 150 ft (QC): 4 (SBA) Walking 10ft on Uneven Surface: 4 (SBA) 1 Step (curb) (QC): 4 (SBA) 4 Steps (QC): 4 (SBA) 12 Steps (QC): 88 Picking up an Object (QC): 4 (SBA) Wheel 50 feet with 2 turns (QC: 9 Wheel 150 feet: 9 PT Plan Problem List Problem List: Activity Tolerance, Functional Strength, Safety, Balance, Gait, Transfer, Bed Mobility, ROM Treatment/Plan Treatment Plan: Continue Plan of Care Treatment Plan: Bed Mobility, Education, Functional Activity Stella, Functional Strength, Group Therapy, Gait, Safety, Therapeutic Exercise, Transfers Treatment Duration: Aug 10, 2021 Frequency: At least 5 of 7 days/Wk (IRF) Estimated Hrs Per Day: 1.5 hours per day Patient and/or Family Agrees t: Yes Safety Risks/Education Patient Education: Transfer Techniques, Correct Positioning, Safety Issues Teaching Recipient: Patient Teaching Methods: Demonstration, Discussion Response to Teaching: Reinforcement Needed Time/GCodes Time In: 1330 Time Out: 1345 Total Billed Treatment Time: 15 Total Billed Treatment 1 visit EX 15' DEVAUGHN ROJAS PT Jul 22, 2021 13:48
--- NOTE | 2021-07-22 14:33 | PM&R Progress Note ---
Subjective HPI/CC On Admission Date Seen by Provider: Jul 22, 2021 Time Seen by Provider: 14:00 Subjective/Events-last exam 07/22/2021: Patient doing well at bedside called [facility] talk to nurse surgeon bleeding from his colostomy and Dr. Scott counseled her on the plan Checked meds and labs Patient appears to be very end stage No pain is reported 07/21/2021: Pt doing pretty well and son are at the bedside O2 is off now Speech therapy will do a swallow eval and allow him to eat pizza that he is req uesting Ostomy is flowing well Pt is low vision Left flank has a bruise Prognosis is very guarded per [facility] Labs reviewed Dr. Scott will be consulted Review of Systems General: Fatigue, Malaise Objective Exam Vital Signs Vital Signs Date Time Temp Pulse Resp B/P (MAP) Pulse Ox O2 Delivery O2 Flow Rate FiO2 07/22/21 16:29 Room Air 0.00 07/22/21 08:00 36.2 67 18 124/78 (93) 95 Capillary Refill : General Appearance: No Apparent Distress, WD/WN, Chronically ill, Thin, Other HEENT: PERRL/EOMI, Normal ENT Inspection, Pharynx Normal Neck: Full Range of Motion, Normal Inspection, Non Tender, Supple, Carotid Bruit Respiratory: Chest Non Tender, Lungs Clear, Normal Breath Sounds, No Accessory Muscle Use, No Respiratory Distress Cardiovascular: Regular Rate, Rhythm, No Edema, No Gallop, No JVD, No Murmur, Normal Peripheral Pulses Gastrointestinal: Normal Bowel Sounds, No Organomegaly, No Pulsatile Mass, Non Tender, Soft Back: Normal Inspection, No CVA Tenderness, No Vertebral Tenderness Extremity: Normal Capillary Refill, Normal Inspection, Normal Range of Motion, Non Tender, No Calf Tenderness, No Pedal Edema Neurologic/Psychiatric: Alert, Oriented x3, No Motor/Sensory Deficits, 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 FIM Transfers Therapy Code Descriptions/Definitions Functional [place] Measure: 0=Not Assessed/NA 4=Minimal Assistance 1=Total Assistance 5=Supervision or Setup 2=Maximal Assistance 6=Modified [place] 3=Moderate Assistance 7=Complete IndependenceSCALE: Activities may be completed with or without assistive devices. 0-Mpthchatbe-nevodqs completes the activity by him/herself with no assistance from a helper. 5-Set-up or Clean-up Assistance-helper sets up or cleans up; patient completes activity. [place] assists only prior to or following the activity. 4-Supervision or Touching Assistance-helper provides verbal cues and/or touching/steadying and/or contact guard assistance as patient completes activity. Assistance may be provided throughout the activity or intermittently. 3-Partial/Moderate Assistance-helper does LESS THAN HALF the effort. [place] lifts, holds or supports trunk or limbs, but provides less than half the effort. 2-Substantial/Maximal Assistance-helper does MORE THAN HALF the effort. [place] lifts or holds trunk or limbs and provides more than half the effort. 3-Dgjdhcgen-rxfrlo does ALL the effort. Patient does none of the effort to complete the activity. Or, the assistance of 2 or more helpers is required for the patient to complete the activity. If activity was not attempted, code reason: 7-Patient Refused. 9-Not Applicable-not attempted and the patient did not perform the activity before the current illness, exacerbation or injury. 10-Not Attempted due to Environmental Limitations-(lack of equipment, weather restraints, etc.). 88-Not Attempted due to Medical Conditions or Safety Concerns. Roll Left to Right (QC): 6 Sit to Lying (QC): 6 Sit to Stand (QC): 4 Chair/Qae-pq-Nwhdd Xfer(QC): 4 Car Transfer (QC): 3 Gait Training Does the Patient Walk?: Yes Distance: 250' Walk 10 feet (QC): 3 Walk 50 ft with 2 Turns(QC): 3 Walk 150 ft (QC): 3 Walking 10ft/uneven surface-QC: 3 Gait Persons Needed: 1 Gait Assistive Device: FWW Wheelchair Training Does the Pt Use a Wheelchair?: No Wheel 50 ft with 2 turns (QC): 9 Wheel 150 ft (QC): 9 Stair Training #of Steps: 1 1 Step (curb) (QC): 3 4 Steps (QC): 88 12 Steps (QC): 88 Balance Picking up an Object (QC): 4 ADL-Treatment Eating (QC): 5 (setup) Oral Hygiene (QC): 3 Bathing Location: L Arm, R Arm, L Upper Leg, R Upper Leg, L Lower Leg (including foot), R Lower Leg (including foot), Chest, Abdomen, Buttocks, Perineal Area Shower/Bathe Self (QC): 2 (max A to wash entire body besides face) Upper Body Dressing (QC): 2 Lower Body Dressing (QC): 2 On/Off Footwear (QC): 2 Toileting Hygiene (QC): 1 (colostomy and urostomy) Toilet Transfer (QC): 1 (colostomy and urostomy) Assessment/Plan Assessment and Plan Assess & Plan/Chief Complaint Assessment: 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 Acute kidney injury Kidney stones Paroxysmal atrial fibrillation Hypertension GERD Colon obstruction Encephalopathy Homonymous hemianopia s/p hypovolemic shock Recent NSTEMI Skin cancer Past surgical history includes appendectomy, vasectomy, cataract removal, cystos copy, bladder tumor excision, glaucoma surgery, laser eye surgery, cystectomy/prastectomy, kidney stone surgery, cystourethroscopy, nephrostomy, colostomy Plan: General surgery consult Cardiology consult Rehab protocol Supportive care 07/21/2021: Supportive care Advance diet Family at bedside Continue cognitive improvement management 07/22/2021: Supportive care Appreciate Dr. Scott plan (1) Bladder cancer (2) Colostomy in place (3) CVA (cerebral vascular accident) MANPREET COLVIN DO Jul 22, 2021 14:33
--- NOTE | 2021-07-22 14:34 | Individualized Plan of Care ---
Individualized Plan of Care Rehab Nursing IPOC Order Admission Date Jul 20, 2021 at 14:35 Current Orders Orders Admission Order(Inpt,Obs,Sdc) (07/20/21 13:54) Vital Signs: Per Unit Policy ( 08,16,00 (07/20/21 13:54) [place] Perdomo (07/20/21 13:54) Sequential Compression Device (07/20/21 13:54) Steel Heater-Inpt Rehab Con (07/20/21 13:54) Rehab Nursing Orders-Ipoc (07/20/21 13:54) Physical Therapy Rehab Orders (07/20/21 13:54) Occupational Therapy Rehab Ord (07/20/21 13:54) Speech Therapy Rehab Orders (07/20/21 13:54) Cbc With Automated Diff (07/21/21 06:00) Comprehensive Metabolic Panel (07/21/21 06:00) Precautions (Aru) (07/20/21 13:54) Weekly Weight WEEK (07/20/21 13:54) Rehab-Intensity Of Therapy (07/20/21 13:54) Initiate Admission Nursing Pro .admission (07/20/21 13:54) Alprazolam Tablet (Xanax Tablet) (07/20/21 14:00) Calcium Carbonate Chew Tablet (Antacid C (07/20/21 14:00) Diphenhydramine Tablet (Benadryl Tablet) (07/20/21 14:00) Docusate Sodium Capsule (Colace Capsule) (07/20/21 21:00) Docusate Sodium Capsule (Colace Capsule) (07/20/21 14:00) Bisacodyl Suppository (Dulcolax Supposit (07/20/21 14:00) Lactulose Oral Solution (Enulose Oral So (07/20/21 14:00) Na Phos/Na Biphos Enema (Fleet Enema James (07/20/21 14:00) Guaifenesin/Codeine Syrup (Robitussin Ac (07/20/21 14:00) Loperamide Tablet (Imodium Tablet) (07/20/21 14:00) Melatonin Tablet (Melatonin Tablet) (07/20/21 14:00) Polyethylene Glycol Powder Pkt (Miralax (07/20/21 21:00) Ondansetron Oral Dissolve Tab (Zofran (07/20/21 14:00) Senna S Tablet (Senokot S Tablet) (07/20/21 21:00) Acetaminophen Tablet/Caplet (Tylenol T (07/20/21 14:00) Code/Resuscitation (07/20/21 13:54) Sequential Compression Device ONCE (07/20/21 13:54) Initiate Admission Nursing Pro .admission (07/20/21 13:54) Admission Arrival Bed Request (07/20/21 14:35) Dys3 Advanced/Ground Meat (07/20/21 Dinner) Acetaminophen Tablet (Tylenol Tablet) (07/20/21 18:15) Aspirin Enteric Coated Tablet (Ecotrin T (07/20/21 21:00) Atenolol Tablet (Tenormin Tablet) (07/21/21 09:00) Atorvastatin Tablet (Lipitor Tablet) (07/21/21 09:00) Dexamethasone Tablet (Decadron Tablet) (07/20/21 18:15) Dicyclomine Capsule (Bentyl Capsule) (07/20/21 21:00) Dorzolamide/Timolol Ophth Soln (Cosopt O (07/20/21 21:00) Famotidine Tablet (Pepcid Tablet) (07/20/21 18:15) Latanoprost 0.005% Ophth Soln (Xalatan 0 (07/20/21 21:00) Polyethylene Glycol Powder Pkt (Miralax (07/20/21 18:15) Prednisolone 1% Ophthalmic Gisela (Pred For (07/20/21 21:00) Senna S Tablet (Senokot S Tablet) (07/20/21 18:15) Rx-Tramadol Hcl (Rx-Ultram) (07/20/21 18:15) (Nf) Acetaminophen (Tylenol) (07/20/21 18:15) (Nf) Brimonidine Tartrate (Alphagan P) (07/20/21 21:00) (Nf) Cetirizine Hcl (07/20/21 18:15) (Nf) Ketorolac Tromethamine (Acular) (07/20/21 21:00) (Nf) Netarsudil Mesylate (Rhopressa) (07/20/21 21:00) (Nf) [place]-3s/Dha/Epa/Fish Oil (Fish Oil (07/21/21 09:00) (Nf) Ondansetron Hcl (07/20/21 18:15) Therapeutic Multivitamin Tab (Vitamins, (07/21/21 07:00) Tramadol Tablet (Ultram Tablet) (07/20/21 18:30) Ondansetron Oral Dissolve Tab (Zofran (07/20/21 18:30) Loratadine Tablet (Claritin Tablet) (07/20/21 18:30) Brimonidine 0.2% Ophth Soln (Alphagan (07/20/21 21:00) Acetaminophen Tablet/Caplet (Tylenol T (07/20/21 18:30) [place] 3 Capsule (Fish Oil Capsule) (07/21/21 09:00) Heparin Injection (Heparin Injection) (07/20/21 20:00) Oxygen Delivery Set Up (07/20/21 20:00) Oxygen-Administer 07,19 (07/20/21 20:00) Oxygen-Administer 07,19 (07/20/21 20:00) Oxygen Delivery Set Up (07/20/21 20:00) Patient Visit (07/20/21 ) Pt Eval Moderate Complexity (07/20/21 ) Functional Activities, Ea 15 (07/20/21 ) Exercise Therap, Ea 15 Min (07/20/21 ) Patient Visit (07/21/21 ) Speech Sound Lang Comp (07/21/21 ) Treat. Speech/Lang/Voice (07/21/21 ) Patient Visit (07/21/21 ) Gait Training, Ea 15 Min (07/21/21 ) Functional Activities, Ea 15 (07/21/21 ) Exercise Therap, Ea 15 Min (07/21/21 ) Consult General Surgery (07/21/21 11:30) Patient Visit (07/21/21 ) Dysphagia Evaluation Std (07/21/21 ) Dysphagia Therapy (07/21/21 ) General/Regular (07/21/21 Lunch) Ensure Plus Variety (07/21/21 13:19) Pantoprazole Injection (Protonix Injecti (07/21/21 21:00) Cbc No Diff (07/22/21 05:00) Ostomy Care (07/22/21 02:05) Patient Visit (07/22/21 ) Exercise Therap, Ea 15 Min (07/22/21 ) Gait Training, Ea 15 Min (07/22/21 ) Functional Activities, Ea 15 (07/22/21 ) Patient Visit (07/22/21 ) Exercise Therap, Ea 15 Min (07/22/21 ) Cbc No Diff (07/23/21 05:00) Rehab Nursing Orders: Ongoing Assess. of Cognitive Status, Ongoing Assess. of Function Status, Bladder Management, Bladder Scan, Bladder Training, Bowel Management, Bowel Training, Disease Management & Educaiton, DVT Prophylaxis, Fall Prevention, Fluid/Electrolyte/Nutrition Mgmt, Infection Prevention, Medication Management & Education, Management of Risks & Complications, M anagement of Skin Intergrity, Nutrition Management, Pain Management, Patient/Family Support, Safety Management Intensity of Therapy to be met Patient to be seen: Min.3h per day/5 of 7d PT IPOC Problem List: Activity Tolerance, Functional Strength, Safety, Balance, Gait, Transfer, Bed Mobility, ROM Treatment Plan: Continue Plan of Care Bed Mobility, Education, Functional Activity Stella, Functional Strength, Group Therapy, Gait, Safety, Therapeutic Exercise, Transfers Treatment Duration: Aug 10, 2021 Frequency: At least 5 of 7 days/Wk (IRF) Estimated Hrs Per Day: 1.5 hours per day OT IPOC Problems: Decreased Activ Tolerance, Decreased UE Strength, Impaired Cognition, Impaired Funct Balance, Impaired I ADL's, Impaired Self-Care Skills OT Treatment, Training and Edu: Yes Plan of Care: ADL Retraining, Functional Mobility, Group Exercise/Act as Ind, UE Funct Exercise/Act Treatment Duration: Aug 20, 2021 Frequency: At least 5 of 7 days/Wk (IRF) Estimated Hrs Per Day: 1.[address] IPOC Speech Therapy Treatment Plan: Continue Plan of Care Treatment Duration: Aug 04, 2021 Frequency: 4 times per week (Four to five times per week. ) Estimated Hrs Per Day: .5 hour per day Steel Heater/Case Mgmt Steel Heater/Case Managemen: Discharge Planning Dietitian/Community Services Manager Dietitian/Community Services Manager to monitor nutritional status and make changes and/or recommendations as needed and work with speech pathology on dietary upgrades as the occur. Physician IPOC Medical Issues being managed closely and that require the 24 hour availability of a physician: Patient with bladder cancer with penetration of tumor into gastrointestinal tract will require close monitoring especially due to colostomy bleed and will be at high risk for decompensation Medical Issues: Bowel/Bladder Function, DVT Prophylaxis, Falls Precautions, Fluid/Electrolyte/Nutrition Balance, Infection Protection, Pain Management, Wound Care Brief Synthesis of Preadmission Screen, Post-Admission Evaluation, and Therapy Evaluations: PT and OT will focus on regaining function to return home to independent living with the use of assistive devices and ST for cognitive deficit Medical Prognosis: Fair Anticipated Length of Stay: 10 days MANPREET COLVIN DO Jul 22, 2021 14:34
[2021-07-22 20:00] VITALS: BP 136/81
[2021-07-22] MEDS: ASPIRIN E.C. 81 MG (ECOTRIN) TAB PO SCH (20:31)
[2021-07-22] MEDS: LATANOPROST 0.005% (XALATAN) OPHTH SOLN 2.5 ML OD SCH (20:31)
[2021-07-22] MEDS: ACETAMINOPHEN 325 MG TABLET PO PRN (20:31)
[2021-07-23 05:55] LABS: HEMATOCRIT 37 % (40-54); HEMOGLOBIN 12.1 g/dL (13.3-17.7); MEAN CORPUSCULAR HEMOGLOBIN 31 pg (25-34); MEAN CORPUSCULAR HGB CONC 33 g/dL (32-36); MEAN CORPUSCULAR VOLUME 93 fL (80-99); MEAN PLATELET VOLUME 10.4 fL (9.0-12.2); PLATELET COUNT 176 10^3/uL (130-400); WHITE BLOOD COUNT 16.6 10^3/uL (4.3-11.0)
[2021-07-23] MEDS: DICYCLOMINE 10 MG (BENTYL) CAP PO SCH (06:26)
[2021-07-23] MEDS: MULTIVIT W/MINERALS TAB (THERAGRAN M) PO SCH (06:26)
--- NOTE | 2021-07-23 06:38 | PM&R Progress Note ---
Subjective HPI/CC On Admission Date Seen by Provider: Jul 23, 2021 Time Seen by Provider: 10:30 Subjective/Events-last exam 07/23/2021: Patient doing about the same and son at the bedside We will discontinue Bentyl at 's request Patient appears to have a poor prognosis and unsure if they are fully aware of that The goal will be to see what can be done to discharge him to go to appointment on Monday at so they can talk to him about prognosis 07/22/2021: Patient doing well at bedside called talk to nurse surgeon bleeding from his colostomy and Dr. Scott counseled her on the plan Checked meds and labs Patient appears to be very end stage No pain is reported 07/21/2021: Pt doing pretty well and son are at the bedside O2 is off now Speech therapy will do a swallow eval and allow him to eat pizza that he is requesting Ostomy is flowing well Pt is low vision Left flank has a bruise Prognosis is very guarded per Labs reviewed Dr. Scott will be consulted Review of Systems General: Fatigue, Malaise Objective Exam Vital Signs Vital Signs Date Time Temp Pulse Resp B/P (MAP) Pulse Ox O2 Delivery O2 Flow Rate FiO2 07/23/21 09:00 Room Air 07/23/21 07:32 37.0 75 18 145/80 (101) 92 07/22/21 16:29 0.00 Capillary Refill : General Appearance: No Apparent Distress, WD/WN, Chronically ill, Thin, Other HEENT: PERRL/EOMI, Normal ENT Inspection, Pharynx Normal Neck: Full Range of Motion, Normal Inspection, Non Tender, Supple, Carotid Bruit Respiratory: Chest Non Tender, Lungs Clear, Normal Breath Sounds, No Accessory Muscle Use, No Respiratory Distress Cardiovascular: Regular Rate, Rhythm, No Edema, No Gallop, No JVD, No Murmur, Normal Peripheral Pulses Gastrointestinal: Normal Bowel Sounds, No Organomegaly, No Pulsatile Mass, Non Tender, Soft Back: Normal Inspection, No CVA Tenderness, No Vertebral Tenderness Extremity: Normal Capillary Refill, Normal Inspection, Normal Range of Motion, Non Tender, No Calf Tenderness, No Pedal Edema Neurologic/Psychiatric: Alert, Oriented x3, No Motor/Sensory Deficits, dampener II- XII Norm as Tested, Abnormal Gait, Depressed Affect, Motor Weakness Skin: Normal Color, Warm/Dry Lymphatic: No Adenopathy Results/Procedures Lab Laboratory Tests 07/23/21 05:50 Patient resulted labs reviewed. FIM Transfers Therapy Code Descriptions/Definitions Functional [place] Measure: 0=Not Assessed/NA 4=Minimal Assistance 1=Total Assistance 5=Supervision or Setup 2=Maximal Assistance 6=Modified [place] 3=Moderate Assistance 7=Complete IndependenceSCALE: Activities may be completed with or without assistive devices. 9-Mnvkzcfaen-qmgjcfe completes the activity by him/herself with no assistance from a helper. 5-Set-up or Clean-up Assistance-helper sets up or cleans up; patient completes activity. [place] assists only prior to or following the activity. 4-Supervision or Touching Assistance-helper provides verbal cues and/or touching/steadying and/or contact guard assistance as patient completes activity. Assistance may be provided throughout the activity or intermittently. 3-Partial/Moderate Assistance-helper does LESS THAN HALF the effort. [place] lifts, holds or supports trunk or limbs, but provides less than half the effort. 2-Substantial/Maximal Assistance-helper does MORE THAN HALF the effort. [place] lifts or holds trunk or limbs and provides more than half the effort. 6-Efracyszd-wchubv does ALL the effort. Patient does none of the effort to complete the activity. Or, the assistance of 2 or more helpers is required for the patient to complete the activity. If activity was not attempted, code reason: 7-Patient Refused. 9-Not Applicable-not attempted and the patient did not perform the activity before the current illness, exacerbation or injury. 10-Not Attempted due to Environmental Limitations-(lack of equipment, weather restraints, etc.). 88-Not Attempted due to Medical Conditions or Safety Concerns. Roll Left to Right (QC): 6 Sit to Lying (QC): 6 Sit to Stand (QC): 4 Chair/Zgn-jj-Dtjnn Xfer(QC): 4 Car Transfer (QC): 3 Gait Training Does the Patient Walk?: Yes Distance: 250' Walk 10 feet (QC): 3 Walk 50 ft with 2 Turns(QC): 3 Walk 150 ft (QC): 3 Walking 10ft/uneven surface-QC: 3 Gait Persons Needed: 1 Gait Assistive Device: FWW Wheelchair Training Does the Pt Use a Wheelchair?: No Wheel 50 ft with 2 turns (QC): 9 Wheel 150 ft (QC): 9 Stair Training #of Steps: 1 1 Step (curb) (QC): 3 4 Steps (QC): 88 12 Steps (QC): 88 Balance Picking up an Object (QC): 4 ADL-Treatment Eating (QC): 5 (setup) Oral Hygiene (QC): 3 Bathing Location: L Arm, R Arm, L Upper Leg, R Upper Leg, L Lower Leg (including foot), R Lower Leg (including foot), Chest, Abdomen, Buttocks, Perineal Area Shower/Bathe Self (QC): 2 (max A to wash entire body besides face) Upper Body Dressing (QC): 2 Lower Body Dressing (QC): 2 On/Off Footwear (QC): 2 Toileting Hygiene (QC): 1 (colostomy and urostomy) Toilet Transfer (QC): 1 (colostomy and urostomy) Assessment/Plan Assessment and Plan Assess & Plan/Chief Complaint Assessment: 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 Acute kidney injury Kidney stones Paroxysmal atrial fibrillation Hypertension GERD Colon obstruction Encephalopathy Homonymous hemianopia s/p hypovolemic shock Recent NSTEMI Skin cancer Past surgical history includes appendectomy, vasectomy, cataract removal, cystoscopy, bladder tumor excision, glaucoma surgery, laser eye surgery, cystectomy/prastectomy, kidney stone surgery, cystourethroscopy, nephrostomy, colostomy Plan: General surgery consult Cardiology consult Rehab protocol Supportive care 07/21/2021: Supportive care Advance diet Family at bedside Continue cognitive improvement management 07/22/2021: Supportive care Appreciate Dr. Scott plan 07/23/2021: Appreciate Dr. Scott Supportive care (1) Bladder cancer (2) Colostomy in place (3) CVA (cerebral vascular accident) MANPREET COLVIN DO Jul 23, 2021 06:38
[2021-07-23] MEDS: FAMOTIDINE 20 MG (PEPCID) TABLET PO PRN (07:22)
[2021-07-23] MEDS: SENNA W/DOCUSATE (SENOKOT S) TABLET PO SCH ×2 (07:22→23:00)
[2021-07-23] MEDS: ATENOLOL 50 MG (TENORMIN) TAB PO SCH (07:22)
[2021-07-23] MEDS: DOCUSATE SODIUM 100 MG (COLACE) CAP PO SCH ×2 (07:22→23:00)
[2021-07-23] MEDS: PANTOPRAZOLE 40 MG (PROTONIX) VIAL IV SCH ×2 (07:23→23:02)
[2021-07-23] MEDS: OMEGA 3 (FISH OIL) 1000 MG CAP PO SCH (07:23)
[2021-07-23] MEDS: prednisoLONE 1% OPTH (PRED FORTE) 5 ML BTL OD SCH ×4 (07:23→23:07)
[2021-07-23 07:32] VITALS: BP 145/80
[2021-07-23] MEDS: DORZOLAMIDE/TIMOLOL (COSOPT) 2-0.68% 10 ML BTL OD SCH ×2 (07:32→23:07)
[2021-07-23] MEDS: BRIMONIDINE 0.2% (ALPHAGAN) OPHTH SOLN 5 ML BTL OD SCH ×2 (07:41→23:08)
[2021-07-23] MEDS: CALCIUM CARBONATE 500 MG (TUMS) TAB.CHEW PO PRN (07:43)
--- NOTE | 2021-07-23 08:50 | Occupational Ther Daily Note ---
OT Current Status-Daily Note Subjective "You never give up do you?" Appearance Pt left reclined in chair, family in room. Alarm set. Mental Status/Objective Patient Orientation: Person, Confused Attachments: Colostomy/Ileostomy, IV ADL-Treatment Therapy Code Descriptions/Definitions Functional [place] Measure: 0=Not Assessed/NA 4=Minimal Assistance 1=Total Assistance 5=Supervision or Setup 2=Maximal Assistance 6=Modified [place] 3=Moderate Assistance 7=Complete IndependenceSCALE: Activities may be completed with or without assistive devices. 1-Ferkplhffu-aqvltdl completes the activity by him/herself with no assistance from a helper. 5-Set-up or Clean-up Assistance-helper sets up or cleans up; patient completes activity. [place] assists only prior to or following the activity. 4-Supervision or Touching Assistance-helper provides verbal cues and/or touching/steadying and/or contact guard assistance as patient completes activity. Assistance may be provided throughout the activity or intermittently. 3-Partial/Moderate Assistance-helper does LESS THAN HALF the effort. [place] lifts, holds or supports trunk or limbs, but provides less than half the effort. 2-Substantial/Maximal Assistance-helper does MORE THAN HALF the effort. [place] lifts or holds trunk or limbs and provides more than half the effort. 6-Mrhufgmya-jarddy does ALL the effort. Patient does none of the effort to complete the activity. Or, the assistance of 2 or more helpers is required for the patient to complete the activity. If activity was not attempted, code reason: 7-Patient Refused. 9-Not Applicable-not attempted and the patient did not perform the activity before the current illness, exacerbation or injury. 10-Not Attempted due to Environmental Limitations-(lack of equipment, weather restraints, etc.). 88-Not Attempted due to Medical Conditions or Safety Concerns. Oral Hygiene (QC): 2 Shower/Bathe Self (QC): 3 Upper Body Dressing (QC): 2 Lower Body Dressing (QC): 3 On/Off Footwear: 3 Toileting Hygiene (QC): 1 (urostomy/colostomy bags) Pt sitting in chair at OT arrival. He often rests his head in hands or on bedside table. Cues and extra time to initiate all tasks. 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 Pt is able to verbalize correct sequence when cued, but unable to motor plan correctly when given object. Assist needed to guide first arm/leg into clothing. Pt then able to finish steps with extra time and verbal/tactile cues. Pt often questioning why he is doing something or why therapist is having him do it for himself. Max cues and HOHA needed for correct object use including: comb, toothbrush, underwear, socks, pants, and sweatshirt. For example, with sweatshirt, pt often threading arm through sleeve and attempting to put on like a jacket by bringing it around his back. With boxers and socks, pt often attempting to thread over head despite verbalizing correct use when asked. Education OT Patient Education: Correct positioning, Energy conservation, Modified ADL techniques, Progress toward Goal/Update tx plan, Purpose of tx/functional ac tivities, Rehab process, Safety issues, Transfer techniques Teaching Recipient: Patient, Family Teaching Methods: Demonstration, Discussion Response to Teaching: Verbalize Understanding, Unable to Return Demonstration, Reinforcement Needed OT Short Term Goals Short Term Goals Time Frame: Aug 04, 2021 Toileting hygiene: 3 Shower/bathe self: 3 Lower body dressin OT Group Leader [employer] Testing Goals Senior Care Goals Time Frame: Aug 20, 2021 Eating (QC): 5 Oral Hygiene (QC): 5 Toileting Hygiene (QC): 4 Shower/Bathe Self (QC): 4 Upper Body Dressing (QC): 5 Lower Body Dressing (QC): 4 On/Off Footwear (QC): 4 Additional Goals: 1-Demonstrate ADL Tasks, 2-Verbalize Understanding, 3- ImproveStrength/Stella 1=Demonstrate adherence to instructed precautions during ADL tasks. 2=Patient will verbalize/demonstrate understanding of assistive devices/modifications for ADL. 3=Patient will improve strength/tolerance for activity to enable patient to perform ADL's. OT Education/Plan Problem List/Assessment Assessment: Decreased Activ Tolerance, Decreased Safety Aware, Decreased UE Strength, Impaired Cognition, Impaired Funct Balance, Impaired I ADL's, Impaired Self-Care Skills, Visual-Perceptual Deficit Discharge Recommendations Plan/Recommendations: Continue POC Treatment Plan/Plan of Care Treatment,Training & Education: Yes Patient would benefit from OT for education, treatment and training to promote independence in ADL's, mobility, safety and/or upper extremity function for ADL's. Plan of Care: ADL Retraining, Functional Mobility, Group Exercise/Act as Ind, UE Funct Exercise/Act Treatment Duration: Aug 20, 2021 Frequency: At least 5 of 7 days/Wk (IRF) Estimated Hrs Per Day: 1.5 hours per day Agreement: Yes Rehab Potential: Guarded Time/GCodes Start Time: 07:40 Stop Time: 08:45 Total Time Billed (hr/min): 65 Billed Treatment Time 1 visit ADL x4 Tracy Robles OT Jul 23, 2021 08:50
--- NOTE | 2021-07-23 10:31 | Occupational Ther Daily Note ---
OT Current Status-Daily Note Subjective Pt fatigued already, requires motivation to participate. Appearance Left sitting in chair, alarm set, all needs within reach. ADL-Treatment Therapy Code Descriptions/Definitions Functional [place] Measure: 0=Not Assessed/NA 4=Minimal Assistance 1=Total Assistance 5=Supervision or Setup 2=Maximal Assistance 6=Modified [place] 3=Moderate Assistance 7=Complete IndependenceSCALE: Activities may be completed with or without assistive devices. 6-Dghlxedbem-ggklkxc completes the activity by him/herself with no assistance from a helper. 5-Set-up or Clean-up Assistance-helper sets up or cleans up; patient completes activity. [place] assists only prior to or following the activity. 4-Supervision or Touching Assistance-helper provides verbal cues and/or touching/steadying and/or contact guard assistance as patient completes activity. Assistance may be provided throughout the activity or intermittently. 3-Partial/Moderate Assistance-helper does LESS THAN HALF the effort. [place] lifts, holds or supports trunk or limbs, but provides less than half the effort. 2-Substantial/Maximal Assistance-helper does MORE THAN HALF the effort. [place] lifts or holds trunk or limbs and provides more than half the effort. 6-Hqpvvvvfy-cotrvu does ALL the effort. Patient does none of the effort to complete the activity. Or, the assistance of 2 or more helpers is required for the patient to complete the activity. If activity was not attempted, code reason: 7-Patient Refused. 9-Not Applicable-not attempted and the patient did not perform the activity before the current illness, exacerbation or injury. 10-Not Attempted due to Environmental Limitations-(lack of equipment, weather restraints, etc.). 88-Not Attempted due to Medical Conditions or Safety Concerns. Other Treatment Pt completed Assessment of apraxia, consisting of following simple spoken commands (ie: kick a ball, salute, hammer a nail, etc). Score of 32/34 (94%). Pt often not initiating request and requires cues to participate. Attempt at pen/paper cognitive task, yet pt with poor visual acuity. Family reports pt wears glasses but does not have them here in the hospital. OT attempts at performing scanning activity/visual assessment by drawing large colored circles on piece of paper. Pt unable to point to circles, but appears to be related to poor participation as he required encouragement to sit up and look towards activity. Difficult to get accurate visual deficits at this time. Education OT Patient Education: Correct positioning, Progress toward Goal/Update tx plan, Rehab process, Safety issues Teaching Recipient: Patient, Family Teaching Methods: Discussion Response to Teaching: Verbalize Understanding, Unable to Return Demonstration, Reinforcement Needed OT Short Term Goals Short Term Goals Time Frame: Aug 04, 2021 Toileting hygiene: 3 Shower/bathe self: 3 Lower body dressin OT Pile Trimmer Goals Pile Trimmer Goals Time Frame: Aug 20, 2021 Eating (QC): 5 Oral Hygiene (QC): 5 Toileting Hygiene (QC): 4 Shower/Bathe Self (QC): 4 Upper Body Dressing (QC): 5 Lower Body Dressing (QC): 4 On/Off Footwear (QC): 4 Additional Goals: 1-Demonstrate ADL Tasks, 2-Verbalize Understanding, 3- ImproveStrength/Stella 1=Demonstrate adherence to instructed precautions during ADL tasks. 2=Patient will verbalize/demonstrate understanding of assistive devices/modifications for ADL. 3=Patient will improve strength/tolerance for activity to enable patient to perform ADL's. OT Education/Plan Problem List/Assessment Assessment: Decreased Activ Tolerance, Decreased Safety Aware, Decreased UE Strength, Impaired Cognition, Impaired Funct Balance, Impaired I ADL's, Impaired Self-Care Skills Discharge Recommendations Plan/Recommendations: Continue POC Therapy Discharge Recommendati: Post Acute OT Treatment Plan/Plan of Care Treatment,Training & Education: Yes Patient would benefit from OT for education, treatment and training to promote independence in ADL's, mobility, safety and/or upper extremity function for ADL's. Plan of Care: ADL Retraining, Functional Mobility, Group Exercise/Act as Ind, UE Funct Exercise/Act Treatment Duration: Aug 20, 2021 Frequency: At least 5 of 7 days/Wk (IRF) Estimated Hrs Per Day: 1.5 hours per day Agreement: Yes Rehab Potential: Guarded Time/GCodes Start Time: 10:00 Stop Time: 10:20 Total Time Billed (hr/min): 20 Billed Treatment Time 1 visit Tracy Jewell OT Jul 23, 2021 10:31
--- NOTE | 2021-07-23 10:55 | Speech Therapy Daily Note ---
Speech Daily Progress Note Subjective Date Seen by Provider: Jul 23, 2021 Time Seen by Provider: 09:00 The patient was seated upright in his recliner upon entrance to the room. The patient's and son were present, however, left the room during the skilled treatment session. The patient greeted the clinician appropriately and was agreeable to participation. Objective The patient completed the SLUMS on this date. The patient displayed 20% (5/24) accuracy, as he was unable to complete visual portions due to recent visual deficit (secondary to stroke). The patient displayed difficulties in all areas of cognition including orientation, attention, problem solving, and memory. The patient stated the year is "1972" and his is currently in "[place]." The patient was unable to recall any of five items following a five minute delay, repeat three digits in reverse, complete basic addition/subtraction, and response appropriately to questions regarding a paragraph recently read aloud. The patient consumed ice cream for the clinician. The patient did not display s/s of suspected aspiration with the four ounces of ice cream. The patient denied s/s of suspected aspiration with PO intake, however, does report a decreased appetite. Safe swallowing strategies were reviewed on this date. Assessment Assessment Current Status: Fair Progress Treatment Plan Continue Plan of Care Speech Short Term Goals Short Term Goals Short Term Goals 1. The patient will demonstrate increased attention to task, displaying appropriate attention for three minutes with moderate clinician verbal cueing. 2. The patient will display compliance with safe swallowing practices with 90% accuracy, independently. Speech Airport Operations Supervisor Goals Detention Goals 1. The patient will demonstrate improved functional cognition for a safe return to the least restrictive environment. 2. The patient will tolerate the least restrictive diet without s/s of suspected aspiration with 90% accuracy, independently. Speech-Plan Treatment Plan Speech Therapy Treatment Plan: Continue Plan of Care Treatment Duration: Aug 04, 2021 Frequency: 4 times per week (Four to five times per week. ) Estimated Hrs Per Day: .5 hour per day Rehab Potential: Guarded Safety Risks/Education Teaching Recipient: Patient Teaching Methods: Discussion Response to Teaching: Reinforcement Needed Education Topics Provided: Safe Swallowing Strategies, Plan of Care Time Speech Therapy Time In: 09:00 Speech Therapy Time Out: 09:30 Total Billed Time: 30 Billed Treatment Time MADELINE Mack DYST LOY, [facility] Jul 23, 2021 10:55
[2021-07-23] MEDS: polyethylene glycoL POWDER 17 GM (MIRALAX) PACK PO SCH ×2 (11:25→23:00)
--- NOTE | 2021-07-23 11:36 | Physical Therapy Daily Note ---
PT Daily Note-Current Subjective Pt. and family present in room. Pt. agrees to try to do some activity, c/o fatigue during Rx and requests breaks frequently. Family catches this CUSTOMER SOLUTIONS REPRESENTATIVE after Tx and shares that pt. does not appear to sleep as they have been here 8am to 6pm and pt. does not sleep during that time period. Family shares that pt. is very intelligent and up to this point has always continued to stimulate himself by reading etc. They feel this has caused some depression and they plan to bring some audible books. Pt. c/o pain in his abdomen at 10. No other pain c/o Pain Numeric Pain Scale: 3 Location: Medial Location Body Site: Abdomen Pain Description: Ache Appearance pt. with head down resting in left hand, pt. with great difficulty lifting his gaze and tracking or identifying Mental Status Patient Orientation: Person Attachments: Colostomy/Ileostomy pt. did not know the name of this facility Transfers SCALE: Activities may be completed with or without assistive devices. 0-Ypxhmcxutn-jabqdjs completes the activity by him/herself with no assistance from a helper. 5-Set-up or Clean-up Assistance-helper sets up or cleans up; patient completes activity. [place] assists only prior to or following the activity. 4-Supervision or Touching Assistance-helper provides verbal cues and/or touching/steadying and/or contact guard assistance as patient completes activity . Assistance may be provided throughout the activity or intermittently. 3-Partial/Moderate Assistance-helper does LESS THAN HALF the effort. [place] lifts, holds or supports trunk or limbs, but provides less than half the effort. 2-Substantial/Maximal Assistance-helper does MORE THAN HALF the effort. [place] lifts or holds trunk or limbs and provides more than half the effort. 9-Cvixdmatq-ayldvr does ALL the effort. Patient does none of the effort to complete the activity. Or, the assistance of 2 or more helpers is required for the patient to complete the activity. If activity was not attempted, code reason: 7-Patient Refused. 9-Not Applicable-not attempted and the patient did not perform the activity before the current illness, exacerbation or injury. 10-Not Attempted due to Environmental Limitations-(lack of equipment, weather restraints, etc.). 88-Not Attempted due to Medical Conditions or Safety Concerns. Roll Left & Right (QC): 4 Sit to Lying (QC): 4 Lying to Sitting/Side of Bed(Q: 4 Sit to Stand (QC): 4 Chair/Vjv-ld-Xmihl Xfer(QC): 4 needs guided for all gait and approaches etc. Weight Bearing Full Weight Bearing Full Weight Bearing Gait Training Does the Patient Walk?: Yes Walk 10 feet (QC): 4 Walk 50 ft with 2 Turns(QC): 4 Walk 150 ft (QC): 4 Gait Persons Needed: 1 Gait Assistive Device: FWW needs instruction for position in FWW as well as turning the device and orienting to room and door etc. Exercises Seated Therapy Exercises: Ankle pumps, Sit to stand, Long arc quads, Hip flexion, Hip abd/add Seated Reps: 12 NuStep Minutes: 8 NuStep Workload: 1 Treatments pt. needed frequent rest breaks during entire Tx, saba on nustep Assessment Current Status: Fair Progress fatigues quickly, frail, weak, vision issues are significant. PT Short Term Goals Short Term Goals Time Frame: Jul 27, 2021 Roll Left & Right: 6 Sit to lyin Lying to sitting on side of be: 6 Sit to stand: 4 (SBA) Chair/urx-ta-riqno transfer: 4 (CGA) Walk 10 feet: 4 (CGA) Walk 50 feet with two turns: 4 (CA) Walk 150 feet: 4 (CGA) PT Paint Tester Goals Fpc Goals PT Fpc Goals Time Frame: Aug 10, 2021 Roll Left & Right (QC): 6 Sit to Lying (QC): 6 Lying-Sitting on Side/Bed(QC): 6 Sit to Stand (QC): 5 Chair/Eux-pp-Cjzkq Xfer(QC): 4 (SBA) Toilet Transfer (QC): 4 (SBA) Car Transfer (QC): 4 (SBA) Does the Patient Walk: Yes Walk 10 feet (QC): 4 (SBA) Walk 50ft with 2 Turns (QC): 4 (SBA) Walk 150 ft (QC): 4 (SBA) Walking 10ft on Uneven Surface: 4 (SBA) 1 Step (curb) (QC): 4 (SBA) 4 Steps (QC): 4 (SBA) 12 Steps (QC): 88 Picking up an Object (QC): 4 (SBA) Wheel 50 feet with 2 turns (QC: 9 Wheel 150 feet: 9 PT Plan Treatment/Plan Treatment Plan: Continue Plan of Care Treatment Plan: Bed Mobility, Education, Functional Activity Stella, Functional Strength, Group Therapy, Gait, Safety, Therapeutic Exercise, Transfers Treatment Duration: Aug 10, 2021 Frequency: At least 5 of 7 days/Wk (IRF) Estimated Hrs Per Day: 1.5 hours per day Patient and/or Family Agrees t: Yes Safety Risks/Education Patient Education: Gait Training, Transfer Techniques, Correct Positioning, Safety Issues Teaching Recipient: Patient Teaching Methods: Demonstration, Discussion Response to Teaching: Verbalize Understanding, Return Demonstration, Reinforcem ent Needed Time/GCodes Time In: 1030 Time Out: 1130 Total Billed Treatment Time: 60 Total Billed Treatment 1,FA20m,GT15m,EX25m JANI NYE CUSTOMER SOLUTIONS REPRESENTATIVE Jul 23, 2021 11:36
--- NOTE | 2021-07-23 11:44 | Progress Note - Surgery ---
Subjective Date Seen by a Provider: Jul 23, 2021 Time Seen by a Provider: 11:40 Subjective/Events-last exam Patient not eating. No significant abdominal pain. Flatus out colostomy. Some blood tinged serous fluid out as well from loop colostomy. Less reflux he states. Denies n/v fever sweats chills shortness of breath or chest pain. Objective Exam Vital Signs Date Time Temp Pulse Resp B/P (MAP) Pulse Ox O2 Delivery O2 Flow Rate FiO2 07/23/21 07:32 37.0 75 18 145/80 (101) 92 Room Air 07/22/21 21:00 96 Room Air 07/22/21 20:00 37.0 68 18 136/81 (99) 93 Room Air 07/22/21 16:29 Room Air 0.00 I & O 07/23/21 07:00 Intake Total 630 ml Output Total 775 ml Balance -145 ml Capillary Refill : General Appearance: No Apparent Distress, WD/WN, Chronically ill, Thin HEENT: PERRL/EOMI, Normal ENT Inspection Neck: Normal Inspection, Non Tender Respiratory: Chest Non Tender, No Accessory Muscle Use, No Respiratory Distress Cardiovascular: Regular Rate, Rhythm, No JVD, No Murmur Peripheral Pulses: 3+ Radial Pulses (R), 3+ Radial Pulses (L) Gastrointestinal: non tender, soft, other ( loop colostomy with some edema and blood clot present appears viable thin serosang drainage, urostomy right lower quadrant) Extremity: Normal Capillary Refill, Normal Inspection, Normal Range of Motion, Non Tender, No Calf Tenderness, No Pedal Edema Neurologic/Psychiatric: Alert, Oriented x3, No Motor/Sensory Deficits, servicenow administrator II- XII Norm as Tested, Abnormal Gait, Depressed Affect, Motor Weakness Skin: Normal Color, Warm/Dry Lymphatic: No Adenopathy Results Lab Laboratory Tests 07/23/21 05:50: White Blood Count 16.6H, Red Blood Count 3.95L, Hemoglobin 12.1L, Hematocrit 37L , Mean Corpuscular Volume 93, Mean Corpuscular Hemoglobin 31, Mean Corpuscular Hemoglobin Concent 33, Red Cell Distribution Width 15.9H, Platelet Count 176, Mean Platelet Volume 10.4 Assessment/Plan Assessment/Plan Assessment/Plan GI bleed upper versus lower GERD with recent history of coffee-ground emesis Gastritis Decreased appetite 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 Hgb stable. No appetite, encouraged intake. SARAH LANE DO Jul 23, 2021 11:44
--- NOTE | 2021-07-23 14:17 | Physical Therapy Daily Note ---
PT Daily Note-Current Subjective Pt. agrees to Tx. asking to communicate with this PRECIPITATE WASHER after Tx. shares that she feels her only has a few weeks to possibly months to live and she "would take him home right now" "but my son thinks its too much to handle" hopes pt can stay in this unit 2 weeks until her daughter comes home to help care for pt. in his home. willing to hire 24 hr care. states she does not believe her is strong enough for chemo and she feels he is expressing that he is ready to "go" Pain Numeric Pain Scale: 3 Location: Upper Location Body Site: Abdomen Pain Description: Pressure Mental Status Patient Orientation: Person Transfers SCALE: Activities may be completed with or without assistive devices. 8-Ppcqrukzmp-pagorvv completes the activity by him/herself with no assistance from a helper. 5-Set-up or Clean-up Assistance-helper sets up or cleans up; patient completes activity. [place] assists only prior to or following the activity. 4-Supervision or Touching Assistance-helper provides verbal cues and/or touching/steadying and/or contact guard assistance as patient completes activity. Assistance may be provided throughout the activity or intermittently. 3-Partial/Moderate Assistance-helper does LESS THAN HALF the effort. [place] lifts, holds or supports trunk or limbs, but provides less than half the effort. 2-Substantial/Maximal Assistance-helper does MORE THAN HALF the effort. [place] lifts or holds trunk or limbs and provides more than half the effort. 2-Gwflpkhlj-msanmt does ALL the effort. Patient does none of the effort to complete the activity. Or, the assistance of 2 or more helpers is required for the patient to complete the activity. If activity was not attempted, code reason: 7-Patient Refused. 9-Not Applicable-not attempted and the patient did not perform the activity before the current illness, exacerbation or injury. 10-Not Attempted due to Environmental Limitations-(lack of equipment, weather restraints, etc.). 88-Not Attempted due to Medical Conditions or Safety Concerns. pt. pushed himself up in the chair x 3 SBA with instructions during Tx in recliner wit recliner in near full back position Weight Bearing Full Weight Bearing Full Weight Bearing Exercises Supine Ex: Bridging, Ankle pumps, Quad Set, Lower trunk rotation, Heel Slides, Short Arc Quads, Scooting, Straight leg raise, Hip abd/add Supine Reps: 20 Assessment Current Status: Fair Progress PT Short Term Goals Short Term Goals Time Frame: Jul 27, 2021 Roll Left & Right: 6 Sit to lyin Lying to sitting on side of be: 6 Sit to stand: 4 (SBA) Chair/auo-az-qarnz transfer: 4 (CGA) Walk 10 feet: 4 (CGA) Walk 50 feet with two turns: 4 (CA) Walk 150 feet: 4 (CGA) PT Correction Goals Program Director/Music Director Goals PT Correction Goals Time Frame: Aug 10, 2021 Roll Left & Right (QC): 6 Sit to Lying (QC): 6 Lying-Sitting on Side/Bed(QC): 6 Sit to Stand (QC): 5 Chair/Abx-ry-Xvveo Xfer(QC): 4 (SBA) Toilet Transfer (QC): 4 (SBA) Car Transfer (QC): 4 (SBA) Does the Patient Walk: Yes Walk 10 feet (QC): 4 (SBA) Walk 50ft with 2 Turns (QC): 4 (SBA) Walk 150 ft (QC): 4 (SBA) Walking 10ft on Uneven Surface: 4 (SBA) 1 Step (curb) (QC): 4 (SBA) 4 Steps (QC): 4 (SBA) 12 Steps (QC): 88 Picking up an Object (QC): 4 (SBA) Wheel 50 feet with 2 turns (QC: 9 Wheel 150 feet: 9 PT Plan Treatment/Plan Treatment Plan: Continue Plan of Care Treatment Plan: Bed Mobility, Education, Functional Activity Stella, Functional Strength, Group Therapy, Gait, Safety, Therapeutic Exercise, Transfers Treatment Duration: Aug 10, 2021 Frequency: At least 5 of 7 days/Wk (IRF) Estimated Hrs Per Day: 1.5 hours per day Patient and/or Family Agrees t: Yes Safety Risks/Education Patient Education: Correct Positioning Time/GCodes Time In: 1330 Time Out: 1400 Total Billed Treatment Time: 30 Total Billed Treatment 1,EX30m JANI NYE PRECIPITATE WASHER Jul 23, 2021 14:17
[2021-07-23 20:00] VITALS: BP 128/75
[2021-07-23] MEDS: ASPIRIN E.C. 81 MG (ECOTRIN) TAB PO SCH (23:00)
[2021-07-23] MEDS: MELATONIN 3 MG TABLET PO SCH (23:01)
[2021-07-23] MEDS: FAMOTIDINE 20 MG (PEPCID) TABLET PO SCH (23:02)
[2021-07-23] MEDS: LATANOPROST 0.005% (XALATAN) OPHTH SOLN 2.5 ML OD SCH (23:08)
--- NOTE | 2021-07-24 05:25 | PM&R Progress Note ---
Subjective HPI/CC On Admission Date Seen by Provider: Jul 24, 2021 Time Seen by Provider: 11:00 Subjective/Events-last exam 07/24/21: Patient about the same Won't eat much Weakness noted Blood in colostomy minimal output but without much food consumption the amount is very low anyway Had a very nova discussion with and son about the realistic plan for patient and Hospice is definitely the plan since had her parents on that program at end of their lives I will speak to Maurice head of therapy and have him focus on all efforts of OT for them to be able to bring him home and start Hospice at [place] 07/23/2021: Patient doing about the same and son at the bedside We will discontinue Bentyl at 's request Patient appears to have a poor prognosis and unsure if they are fully aware of that The goal will be to see what can be done to discharge him to go to appointment on Monday at so they can talk to him about prognosis 07/22/2021: Patient doing well at bedside called talk to nurse surgeon bleeding from his colostomy and Dr. Scott counseled her on the plan Checked meds and labs Patient appears to be very end stage No pain is reported 07/21/2021: Pt doing pretty well and son are at the bedside O2 is off now Speech therapy will do a swallow eval and allow him to eat pizza that he is requesting Ostomy is flowing well Pt is low vision Left flank has a bruise Prognosis is very guarded per Labs reviewed Dr. Scott will be consulted Review of Systems General: Fatigue, Malaise, Appetite (loss) Objective Exam Vital Signs Vital Signs Date Time Temp Pulse Resp B/P (MAP) Pulse Ox O2 Delivery O2 Flow Rate FiO2 07/24/21 10:42 Room Air 07/24/21 07:52 37.0 80 18 142/90 (107) 92 07/22/21 16:29 0.00 Capillary Refill : General Appearance: No Apparent Distress, WD/WN, Chronically ill, Thin, Other HEENT: PERRL/EOMI, Normal ENT Inspection, Pharynx Normal Neck: Full Range of Motion, Normal Inspection, Non Tender, Supple, Carotid Bruit Respiratory: Chest Non Tender, Lungs Clear, Normal Breath Sounds, No Accessory Muscle Use, No Respiratory Distress Cardiovascular: Regular Rate, Rhythm, No Edema, No Gallop, No JVD, No Murmur, Normal Peripheral Pulses Gastrointestinal: Normal Bowel Sounds, No Organomegaly, No Pulsatile Mass, Non Tender, Soft Back: Normal Inspection, No CVA Tenderness, No Vertebral Tenderness Extremity: Normal Capillary Refill, Normal Inspection, Normal Range of Motion, Non Tender, No Calf Tenderness, No Pedal Edema Neurologic/Psychiatric: Alert, Oriented x3, No Motor/Sensory Deficits, dolly pusher II- XII Norm as Tested, Abnormal Gait, Depressed Affect, Motor Weakness Skin: Normal Color, Warm/Dry Lymphatic: No Adenopathy Results/Procedures Lab Patient resulted labs reviewed. FIM Transfers Therapy Code Descriptions/Definitions Functional [place] Measure: 0=Not Assessed/NA 4=Minimal Assistance 1=Total Assistance 5=Supervision or Setup 2=Maximal Assistance 6=Modified [place] 3=Moderate Assistance 7=Complete IndependenceSCALE: Activities may be completed with or without assistive devices. 4-Emdsqxysju-ssvfbyf completes the activity by him/herself with no assistance from a helper. 5-Set-up or Clean-up Assistance-helper sets up or cleans up; patient completes activity. [place] assists only prior to or following the activity. 4-Supervision or Touching Assistance-helper provides verbal cues and/or touching/steadying and/or contact guard assistance as patient completes activity. Assistance may be provided throughout the activity or intermittently. 3-Partial/Moderate Assistance-helper does LESS THAN HALF the effort. [place] lifts, holds or supports trunk or limbs, but provides less than half the effort. 2-Substantial/Maximal Assistance-helper does MORE THAN HALF the effort. [place] lifts or holds trunk or limbs and provides more than half the effort. 1-Ovrhjofrs-aoizmn does ALL the effort. Patient does none of the effort to complete the activity. Or, the assistance of 2 or more helpers is required for the patient to complete the activity. If activity was not attempted, code reason: 7-Patient Refused. 9-Not Applicable-not attempted and the patient did not perform the activity before the current illness, exacerbation or injury. 10-Not Attempted due to Environmental Limitations-(lack of equipment, weather restraints, etc.). 88-Not Attempted due to Medical Conditions or Safety Concerns. Roll Left to Right (QC): 4 Sit to Lying (QC): 4 Sit to Stand (QC): 4 Chair/Iov-lr-Wkjot Xfer(QC): 4 Car Transfer (QC): 3 Gait Training Does the Patient Walk?: Yes Distance: 250' Walk 10 feet (QC): 4 Walk 50 ft with 2 Turns(QC): 4 Walk 150 ft (QC): 4 Walking 10ft/uneven surface-QC: 3 Gait Persons Needed: 1 Gait Assistive Device: FWW Wheelchair Training Does the Pt Use a Wheelchair?: No Wheel 50 ft with 2 turns (QC): 9 Wheel 150 ft (QC): 9 Stair Training #of Steps: 1 1 Step (curb) (QC): 3 4 Steps (QC): 88 12 Steps (QC): 88 Balance Picking up an Object (QC): 4 ADL-Treatment Eating (QC): 5 (setup) Oral Hygiene (QC): 2 Bathing Location: L Arm, R Arm, L Upper Leg, R Upper Leg, L Lower Leg ( including foot), R Lower Leg (including foot), Chest, Abdomen, Buttocks, Perineal Area Shower/Bathe Self (QC): 3 Upper Body Dressing (QC): 2 Lower Body Dressing (QC): 3 On/Off Footwear (QC): 3 Toileting Hygiene (QC): 1 (urostomy/colostomy bags) Toilet Transfer (QC): 1 (colostomy and urostomy) Assessment/Plan Assessment and Plan Assess & Plan/Chief Complaint Assessment: 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 Acute kidney injury Kidney stones Paroxysmal atrial fibrillation Hypertension GERD Colon obstruction Encephalopathy Homonymous hemianopia s/p hypovolemic shock Recent NSTEMI Skin cancer Past surgical history includes appendectomy, vasectomy, cataract removal, cystoscopy, bladder tumor excision, glaucoma surgery, laser eye surgery, cystectomy/prastectomy, kidney stone surgery, cystourethroscopy, nephrostomy, colostomy Plan: General surgery consult Cardiology consult Rehab protocol Supportive care 07/21/2021: Supportive care Advance diet Family at bedside Continue cognitive improvement management 07/22/2021: Supportive care Appreciate Dr. Scott plan 07/23/2021: Appreciate Dr. Scott Supportive care 07/24/21: [place]ice [place] Focus on ADL's with OT in order to DC home (1) Bladder cancer (2) Colostomy in place (3) CVA (cerebral vascular accident) MANPREET COLVIN DO Jul 24, 2021 05:25
[2021-07-24] MEDS: MULTIVIT W/MINERALS TAB (THERAGRAN M) PO SCH (06:44)
[2021-07-24 07:52] VITALS: BP 142/90
[2021-07-24] MEDS: DOCUSATE SODIUM 100 MG (COLACE) CAP PO SCH ×2 (08:37→22:24)
[2021-07-24] MEDS: OMEGA 3 (FISH OIL) 1000 MG CAP PO SCH (08:37)
[2021-07-24] MEDS: polyethylene glycoL POWDER 17 GM (MIRALAX) PACK PO SCH ×2 (08:37→22:27)
[2021-07-24] MEDS: FAMOTIDINE 20 MG (PEPCID) TABLET PO SCH ×2 (08:37→22:24)
[2021-07-24] MEDS: SENNA W/DOCUSATE (SENOKOT S) TABLET PO SCH ×2 (08:37→22:25)
[2021-07-24] MEDS: PANTOPRAZOLE 40 MG (PROTONIX) VIAL IV SCH ×2 (08:37→22:25)
[2021-07-24] MEDS: ATENOLOL 50 MG (TENORMIN) TAB PO SCH (08:37)
[2021-07-24] MEDS: DORZOLAMIDE/TIMOLOL (COSOPT) 2-0.68% 10 ML BTL OD SCH ×2 (09:04→22:26)
[2021-07-24] MEDS: BRIMONIDINE 0.2% (ALPHAGAN) OPHTH SOLN 5 ML BTL OD SCH ×2 (09:05→22:27)
[2021-07-24] MEDS: prednisoLONE 1% OPTH (PRED FORTE) 5 ML BTL OD SCH ×4 (09:05→22:27)
--- NOTE | 2021-07-24 11:56 | Physical Therapy Daily Note ---
PT Daily Note-Current Subjective Pt supine in bed upon arrival to room, reluctantly agreeable to PT treatment. He reports that his stomach and side is hurting, rates at 5/10. RN notified Appearance Following session, pt up in recliner chair. Call light, tray table, and phone all within reach. All needs met. Pt family present at bedside Mental Status Patient Orientation: Person, Confused Attachments: Colostomy/Ileostomy, Gonzalez Catheter Transfers SCALE: Activities may be completed with or without assistive devices. 1-Ggvvblkadf-pdkvczn completes the activity by him/herself with no assistance from a helper. 5-Set-up or Clean-up Assistance-helper sets up or cleans up; patient completes activity. [place] assists only prior to or following the activity. 4-Supervision or Touching Assistance-helper provides verbal cues and/or touching/steadying and/or contact guard assistance as patient completes activity. Assistance may be provided throughout the activity or intermittently. 3-Partial/Moderate Assistance-helper does LESS THAN HALF the effort. [place] lifts, holds or supports trunk or limbs, but provides less than half the effort. 2-Substantial/Maximal Assistance-helper does MORE THAN HALF the effort. [place] lifts or holds trunk or limbs and provides more than half the effort. 6-Htnoeashl-mlrgqf does ALL the effort. Patient does none of the effort to complete the activity. Or, the assistance of 2 or more helpers is required for the patient to complete the activity. If activity was not attempted, code reason: 7-Patient Refused. 9-Not Applicable-not attempted and the patient did not perform the activity before the current illness, exacerbation or injury. 10-Not Attempted due to Environmental Limitations-(lack of equipment, weather restraints, etc.). 88-Not Attempted due to Medical Conditions or Safety Concerns. Roll Left & Right (QC): 4 Lying to Sitting/Side of Bed(Q: 4 Sit to Stand (QC): 4 Chair/Rzy-fz-Tkbdu Xfer(QC): 4 Weight Bearing Full Weight Bearing Full Weight Bearing Gait Training Walk 10 feet (QC): 4 Exercises Seated Therapy Exercises: Ankle pumps, Long arc quads Seated Reps: 10 Treatments Session limited by pts stomach pain, stating that he needs to rest, as his stomach is hurting. Pt agreeable to transfer to recliner chair, and completed AP and LAQ in seated position before stating that he could no longer complete therapy. Assessment Current Status: Fair Progress Session limited by stomach pains this date, will monitor and progress pt as tolerated PT Short Term Goals Short Term Goals Time Frame: Jul 27, 2021 Roll Left & Right: 6 Sit to lyin Lying to sitting on side of be: 6 Sit to stand: 4 (SBA) Chair/qdk-ga-aznvp transfer: 4 (CGA) Walk 10 feet: 4 (CGA) Walk 50 feet with two turns: 4 (CA) Walk 150 feet: 4 (CGA) PT Custodial Goals Process Expert Goals PT Custodial Goals Time Frame: Aug 10, 2021 Roll Left & Right (QC): 6 Sit to Lying (QC): 6 Lying-Sitting on Side/Bed(QC): 6 Sit to Stand (QC): 5 Chair/Yqz-bx-Reqfh Xfer(QC): 4 (SBA) Toilet Transfer (QC): 4 (SBA) Car Transfer (QC): 4 (SBA) Does the Patient Walk: Yes Walk 10 feet (QC): 4 (SBA) Walk 50ft with 2 Turns (QC): 4 (SBA) Walk 150 ft (QC): 4 (SBA) Walking 10ft on Uneven Surface: 4 (SBA) 1 Step (curb) (QC): 4 (SBA) 4 Steps (QC): 4 (SBA) 12 Steps (QC): 88 Picking up an Object (QC): 4 (SBA) Wheel 50 feet with 2 turns (QC: 9 Wheel 150 feet: 9 PT Plan Problem List Problem List: Activity Tolerance, Functional Strength, Safety, Balance, Gait, Transfer, Bed Mobility, ROM Treatment/Plan Treatment Plan: Continue Plan of Care Treatment Plan: Bed Mobility, Education, Functional Activity Stella, Functional Strength, Group Therapy, Gait, Safety, Therapeutic Exercise, Transfers Treatment Duration: Aug 10, 2021 Frequency: At least 5 of 7 days/Wk (IRF) Estimated Hrs Per Day: 1.5 hours per day Patient and/or Family Agrees t: Yes Time/GCodes Time In: 1135 Time Out: 1150 Total Billed Treatment 1 visit FA (15') ASHUTOSH BASS PT Jul 24, 2021 11:56
[2021-07-24] MEDS: CALCIUM CARBONATE 500 MG (TUMS) TAB.CHEW PO PRN (16:45)
[2021-07-24 20:00] VITALS: BP 128/86
[2021-07-24] MEDS: ASPIRIN E.C. 81 MG (ECOTRIN) TAB PO SCH (22:24)
[2021-07-24] MEDS: MELATONIN 3 MG TABLET PO SCH (22:25)
[2021-07-24] MEDS: LATANOPROST 0.005% (XALATAN) OPHTH SOLN 2.5 ML OD SCH (22:26)
[2021-07-25] MEDS: MULTIVIT W/MINERALS TAB (THERAGRAN M) PO SCH (06:48)
[2021-07-25 07:42] VITALS: BP 140/93
--- NOTE | 2021-07-25 07:45 | PM&R Progress Note ---
Subjective HPI/CC On Admission Date Seen by Provider: Jul 25, 2021 Time Seen by Provider: 17:00 Subjective/Events-last exam 07/25/2021: Patient the same Eating 4 bites per meal Son thinks he is doing great since he is eating that much which patient appears to be getting more cachectic and weak No output in colostomy except for blood We will have Dr. Scott reach out to tomorrow My recommendation is discharge home on hospice 07/24/21: Patient about the same Won't eat much Weakness noted Blood in colostomy minimal output but without much food consumption the amount is very low anyway Had a very nova discussion with and son about the realistic plan for patient and Hospice is definitely the plan since had her parents on that program at end of their lives I will speak to Maurice head of therapy and have him focus on all efforts of OT for them to be able to bring him home and start Hospice at [place] 07/23/2021: Patient doing about the same and son at the bedside We will discontinue Bentyl at 's request Patient appears to have a poor prognosis and unsure if they are fully aware of that The goal will be to see what can be done to discharge him to go to appointment on Monday at so they can talk to him about prognosis 07/22/2021: Patient doing well at bedside called talk to nurse surgeon bleeding from his colostomy and Dr. Scott counseled her on the plan Checked meds and labs Patient appears to be very end stage No pain is reported 07/21/2021: Pt doing pretty well and son are at the bedside O2 is off now Speech therapy will do a swallow eval and allow him to eat pizza that he is requesting Ostomy is flowing well Pt is low vision Left flank has a bruise Prognosis is very guarded per Labs reviewed Dr. Scott will be consulted Review of Systems General: Fatigue, Malaise Gastrointestinal: Abdominal Pain Objective Exam Vital Signs Vital Signs Date Time Temp Pulse Resp B/P (MAP) Pulse Ox O2 Delivery O2 Flow Rate FiO2 07/25/21 21:00 93 Room Air 07/25/21 19:24 36.3 80 20 125/86 (99) 07/22/21 16:29 0.00 Capillary Refill : General Appearance: No Apparent Distress, WD/WN, Chronically ill, Thin, Other HEENT: PERRL/EOMI, Normal ENT Inspection, Pharynx Normal Neck: Full Range of Motion, Normal Inspection, Non Tender, Supple, Carotid Bruit Respiratory: Chest Non Tender, Lungs Clear, Normal Breath Sounds, No Accessory Muscle Use, No Respiratory Distress Cardiovascular: Regular Rate, Rhythm, No Edema, No Gallop, No JVD, No Murmur, Normal Peripheral Pulses Gastrointestinal: Normal Bowel Sounds, No Organomegaly, No Pulsatile Mass, Non Tender, Soft Back: Normal Inspection, No CVA Tenderness, No Vertebral Tenderness Extremity: Normal Capillary Refill, Normal Inspection, Normal Range of Motion, Non Tender, No Calf Tenderness, No Pedal Edema Neurologic/Psychiatric: Alert, Oriented x3, No Motor/Sensory Deficits, senior grants officer II- XII Norm as Tested, Abnormal Gait, Depressed Affect, Motor Weakness Skin: Normal Color, Warm/Dry Lymphatic: No Adenopathy Results/Procedures Lab Patient resulted labs reviewed. FIM Transfers Therapy Code Descriptions/Definitions Functional [place] Measure: 0=Not Assessed/NA 4=Minimal Assistance 1=Total Assistance 5=Supervision or Setup 2=Maximal Assistance 6=Modified [place] 3=Moderate Assistance 7=Complete IndependenceSCALE: Activities may be completed with or without assistive devices. 7-Srhgnzgufy-bhzpemj completes the activity by him/herself with no assistance from a helper. 5-Set-up or Clean-up Assistance-helper sets up or cleans up; patient completes activity. [place] assists only prior to or following the activity. 4-Supervision or Touching Assistance-helper provides verbal cues and/or touching/steadying and/or contact guard assistance as patient completes activity. Assistance may be provided throughout the activity or intermittently. 3-Partial/Moderate Assistance-helper does LESS THAN HALF the effort. [place] lifts, holds or supports trunk or limbs, but provides less than half the effort. 2-Substantial/Maximal Assistance-helper does MORE THAN HALF the effort. [place] lifts or holds trunk or limbs and provides more than half the effort. 1-Ravtjgzle-trelph does ALL the effort. Patient does none of the effort to com plete the activity. Or, the assistance of 2 or more helpers is required for the patient to complete the activity. If activity was not attempted, code reason: 7-Patient Refused. 9-Not Applicable-not attempted and the patient did not perform the activity before the current illness, exacerbation or injury. 10-Not Attempted due to Environmental Limitations-(lack of equipment, weather restraints, etc.). 88-Not Attempted due to Medical Conditions or Safety Concerns. Roll Left to Right (QC): 4 Sit to Lying (QC): 4 Sit to Stand (QC): 4 Chair/Iub-rw-Rrisg Xfer(QC): 4 Car Transfer (QC): 3 Gait Training Does the Patient Walk?: Yes Distance: 250' Walk 10 feet (QC): 4 Walk 50 ft with 2 Turns(QC): 4 Walk 150 ft (QC): 4 Walking 10ft/uneven surface-QC: 3 Gait Persons Needed: 1 Gait Assistive Device: FWW Wheelchair Training Does the Pt Use a Wheelchair?: No Wheel 50 ft with 2 turns (QC): 9 Wheel 150 ft (QC): 9 Stair Training #of Steps: 1 1 Step (curb) (QC): 3 4 Steps (QC): 88 12 Steps (QC): 88 Balance Picking up an Object (QC): 4 ADL-Treatment Eating (QC): 5 (setup) Oral Hygiene (QC): 2 Bathing Location: L Arm, R Arm, L Upper Leg, R Upper Leg, L Lower Leg (including foot), R Lower Leg (including foot), Chest, Abdomen, Buttocks, Perineal Area Shower/Bathe Self (QC): 3 Upper Body Dressing (QC): 2 Lower Body Dressing (QC): 3 On/Off Footwear (QC): 3 Toileting Hygiene (QC): 1 (urostomy/colostomy bags) Toilet Transfer (QC): 1 (colostomy and urostomy) Assessment/Plan Assessment and Plan Assess & Plan/Chief Complaint Assessment: 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 Acute kidney injury Kidney stones Paroxysmal atrial fibrillation Hypertension GERD Colon obstruction Encephalopathy Homonymous hemianopia s/p hypovolemic shock Recent NSTEMI Skin cancer Past surgical history includes appendectomy, vasectomy, cataract removal, cystoscopy, bladder tumor excision, glaucoma surgery, laser eye surgery, cystectomy/prastectomy, kidney stone surgery, cystourethroscopy, nephrostomy, colostomy Plan: General surgery consult Cardiology consult Rehab protocol Supportive care 07/21/2021: Supportive care Advance diet Family at bedside Continue cognitive improvement management 07/22/2021: Supportive care Appreciate Dr. Scott plan 07/23/2021: Appreciate Dr. Scott Supportive care 07/24/21: [place]ice [place] Focus on ADL's with OT in order to [place] home 07/25/2021: Supportive care Dr. Scott will check at [facility] surgeon regarding no output on colostomy (1) Bladder cancer (2) Colostomy in place (3) CVA (cerebral vascular accident) MANPREET COLVIN DO Jul 25, 2021 07:45
[2021-07-25] MEDS: ATENOLOL 50 MG (TENORMIN) TAB PO SCH (08:36)
[2021-07-25] MEDS: OMEGA 3 (FISH OIL) 1000 MG CAP PO SCH (08:36)
[2021-07-25] MEDS: SENNA W/DOCUSATE (SENOKOT S) TABLET PO SCH ×2 (08:36→21:00)
[2021-07-25] MEDS: DOCUSATE SODIUM 100 MG (COLACE) CAP PO SCH ×2 (08:36→20:12)
[2021-07-25] MEDS: FAMOTIDINE 20 MG (PEPCID) TABLET PO SCH ×2 (08:36→20:13)
[2021-07-25] MEDS: polyethylene glycoL POWDER 17 GM (MIRALAX) PACK PO SCH ×2 (08:37→21:00)
[2021-07-25] MEDS: PANTOPRAZOLE 40 MG (PROTONIX) VIAL IV SCH ×2 (08:37→20:13)
[2021-07-25] MEDS: prednisoLONE 1% OPTH (PRED FORTE) 5 ML BTL OD SCH ×4 (08:43→22:46)
[2021-07-25] MEDS: BRIMONIDINE 0.2% (ALPHAGAN) OPHTH SOLN 5 ML BTL OD SCH ×2 (08:44→22:46)
[2021-07-25] MEDS: DORZOLAMIDE/TIMOLOL (COSOPT) 2-0.68% 10 ML BTL OD SCH ×2 (08:44→22:46)
[2021-07-25] MEDS: CALCIUM CARBONATE 500 MG (TUMS) TAB.CHEW PO PRN (12:25)
[2021-07-25 19:24] VITALS: BP 125/86
[2021-07-25] MEDS: ASPIRIN E.C. 81 MG (ECOTRIN) TAB PO SCH (20:12)
[2021-07-25] MEDS: MELATONIN 3 MG TABLET PO SCH (20:13)
[2021-07-25] MEDS: LATANOPROST 0.005% (XALATAN) OPHTH SOLN 2.5 ML OD SCH (22:46)
[2021-07-26 06:31] LABS: BASOPHILS # (AUTO) 0.1 10^3/uL (0.0-0.1); BASOPHILS % (AUTO) 0 % (0-10); EOSINOPHILS # (AUTO) 0.1 10^3/uL (0.0-0.3); EOSINOPHILS % (AUTO) 1 % (0-10); HEMATOCRIT 41 % (40-54); HEMOGLOBIN 13.1 g/dL (13.3-17.7); LYMPHOCYTES # (AUTO) 0.5 10^3/uL (1.0-4.0); LYMPHOCYTES % (AUTO) 2 % (12-44); MEAN CORPUSCULAR HEMOGLOBIN 30 pg (25-34); MEAN CORPUSCULAR HGB CONC 32 g/dL (32-36); MEAN CORPUSCULAR VOLUME 93 fL (80-99); MEAN PLATELET VOLUME 11.4 fL (9.0-12.2); MONOCYTES # (AUTO) 1.2 10^3/uL (0.0-1.0); MONOCYTES % (AUTO) 6 % (0-12); NEUTROPHILS # (AUTO) 17.1 10^3/uL (1.8-7.8); NEUTROPHILS % (AUTO) 90 % (42-75); PLATELET COUNT 83 10^3/uL (130-400)
[2021-07-26 06:42] LABS: ALBUMIN 3.1 GM/DL (3.2-4.5); POTASSIUM 4.3 MMOL/L (3.6-5.0)
[2021-07-26 06:43] LABS: CALCIUM 8.3 MG/DL (8.5-10.1)
[2021-07-26 06:44] LABS: TOTAL PROTEIN 5.8 GM/DL (6.4-8.2)
[2021-07-26 06:48] LABS: CREATININE SERUM 1.25 MG/DL (0.60-1.30)
[2021-07-26 06:51] LABS: LYMPHOCYTES % (MANUAL) 2 %; MONOCYTES % (MANUAL) 2 %; NEUTROPHILS % (MANUAL) 96 %; RBC MORPH NORMAL
--- NOTE | 2021-07-26 06:54 | PM&R Progress Note ---
Subjective HPI/CC On Admission Date Seen by Provider: Jul 26, 2021 Time Seen by Provider: 11:00 Subjective/Events-last exam 07/26/2021: Pt doing about the same CT scan done as Dr. Scott requested Abdominal series [place] [id number] I spoke with head of PT and he will focus on functional improvements Pleural effusions noted so will cover for pneumonia superimposed within the eff usion No evidence of sepsis on work-up 07/25/2021: Patient the same Eating 4 bites per meal Son thinks he is doing great since he is eating that much which patient appears to be getting more cachectic and weak No output in colostomy except for blood We will have Dr. Scott reach out to tomorrow My recommendation is discharge home on hospice 07/24/21: Patient about the same Won't eat much Weakness noted Blood in colostomy minimal output but without much food consumption the amount is very low anyway Had a very nova discussion with and son about the realistic plan for patient and Hospice is definitely the plan since had her parents on that program at end of their lives I will speak to Maurice head of therapy and have him focus on all efforts of OT for them to be able to bring him home and start Hospice at [place] 07/23/2021: Patient doing about the same and son at the bedside We will discontinue Bentyl at 's request Patient appears to have a poor prognosis and unsure if they are fully aware of that The goal will be to see what can be done to discharge him to go to appointment on Monday at so they can talk to him about prognosis 07/22/2021: Patient doing well at bedside called talk to nurse surgeon bleeding from his colostomy and Dr. Scott counseled her on the plan Checked meds and labs Patient appears to be very end stage No pain is reported 07/21/2021: Pt doing pretty well and son are at the bedside O2 is off now Speech therapy will do a swallow eval and allow him to eat pizza that he is requesting Ostomy is flowing well Pt is low vision Left flank has a bruise Prognosis is very guarded per Labs reviewed Dr. Scott will be consulted Review of Systems General: Fatigue, Malaise Focused Exam Lactate Level 07/26/21 16:34: Lactic Acid Level 1.31 Objective Exam Vital Signs Vital Signs Date Time Temp Pulse Resp B/P (MAP) Pulse Ox O2 Delivery O2 Flow Rate FiO2 07/26/21 21:00 93 Room Air 07/26/21 20:00 37.0 74 20 136/78 (97) 07/22/21 16:29 0.00 Capillary Refill : General Appearance: No Apparent Distress, WD/WN, Chronically ill, Thin, Other HEENT: PERRL/EOMI, Normal ENT Inspection, Pharynx Normal Neck: Full Range of Motion, Normal Inspection, Non Tender, Supple, Carotid Bruit Respiratory: Chest Non Tender, Lungs Clear, Normal Breath Sounds, No Accessory Muscle Use, No Respiratory Distress Cardiovascular: Regular Rate, Rhythm, No Edema, No Gallop, No JVD, No Murmur, Normal Peripheral Pulses Gastrointestinal: Normal Bowel Sounds, No Organomegaly, No Pulsatile Mass, Non Tender, Soft Back: Normal Inspection, No CVA Tenderness, No Vertebral Tenderness Extremity: Normal Capillary Refill, Normal Inspection, Normal Range of Motion, Non Tender, No Calf Tenderness, No Pedal Edema Neurologic/Psychiatric: Alert, Oriented x3, No Motor/Sensory Deficits, shipper receiver II- XII Norm as Tested, Abnormal Gait, Depressed Affect, Motor Weakness Skin: Normal Color, Warm/Dry Lymphatic: No Adenopathy Results/Procedures Lab Laboratory Tests 07/26/21 06:24 Patient resulted labs reviewed. FIM Transfers Therapy Code Descriptions/Definitions Functional [place] Measure: 0=Not Assessed/NA 4=Minimal Assistance 1=Total Assistance 5=Supervision or Setup 2=Maximal Assistance 6=Modified [place] 3=Moderate Assistance 7=Complete IndependenceSCALE: Activities may be completed with or without assistive devices. 1-Retqhbvavo-wlclnsi completes the activity by him/herself with no assistance from a helper. 5-Set-up or Clean-up Assistance-helper sets up or cleans up; patient completes activity. [place] assists only prior to or following the activity. 4-Supervision or Touching Assistance-helper provides verbal cues and/or touching/steadying and/or contact guard assistance as patient completes a ctivity. Assistance may be provided throughout the activity or intermittently. 3-Partial/Moderate Assistance-helper does LESS THAN HALF the effort. [place] lifts, holds or supports trunk or limbs, but provides less than half the effort. 2-Substantial/Maximal Assistance-helper does MORE THAN HALF the effort. [place] lifts or holds trunk or limbs and provides more than half the effort. 7-Fxenvzxgb-yimcxk does ALL the effort. Patient does none of the effort to complete the activity. Or, the assistance of 2 or more helpers is required for the patient to complete the activity. If activity was not attempted, code reason: 7-Patient Refused. 9-Not Applicable-not attempted and the patient did not perform the activity before the current illness, exacerbation or injury. 10-Not Attempted due to Environmental Limitations-(lack of equipment, weather restraints, etc.). 88-Not Attempted due to Medical Conditions or Safety Concerns. Roll Left to Right (QC): 4 Sit to Lying (QC): 4 Sit to Stand (QC): 4 Chair/Ewc-iz-Awqjo Xfer(QC): 4 Car Transfer (QC): 3 Gait Training Does the Patient Walk?: Yes Distance: 250' Walk 10 feet (QC): 4 Walk 50 ft with 2 Turns(QC): 4 Walk 150 ft (QC): 4 Walking 10ft/uneven surface-QC: 3 Gait Persons Needed: 1 Gait Assistive Device: FWW Wheelchair Training Does the Pt Use a Wheelchair?: No Wheel 50 ft with 2 turns (QC): 9 Wheel 150 ft (QC): 9 Stair Training #of Steps: 1 1 Step (curb) (QC): 3 4 Steps (QC): 88 12 Steps (QC): 88 Balance Picking up an Object (QC): 4 ADL-Treatment Eating (QC): 5 (setup) Oral Hygiene (QC): 2 Bathing Location: L Arm, R Arm, L Upper Leg, R Upper Leg, L Lower Leg (including foot), R Lower Leg (including foot), Chest, Abdomen, Buttocks, Perin eal Area Shower/Bathe Self (QC): 3 Upper Body Dressing (QC): 2 Lower Body Dressing (QC): 3 On/Off Footwear (QC): 3 Toileting Hygiene (QC): 1 (urostomy/colostomy bags) Toilet Transfer (QC): 1 (colostomy and urostomy) Assessment/Plan Assessment and Plan Assess & Plan/Chief Complaint Assessment: 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 Acute kidney injury Kidney stones Paroxysmal atrial fibrillation Hypertension GERD Colon obstruction Encephalopathy Homonymous hemianopia s/p hypovolemic shock Recent NSTEMI Skin cancer Past surgical history includes appendectomy, vasectomy, cataract removal, cystoscopy, bladder tumor excision, glaucoma surgery, laser eye surgery, cystectomy/prastectomy, kidney stone surgery, cystourethroscopy, nephrostomy, colostomy Bilateral pleural effusions with possible superimposed pneumonia on CT scan covered with cefepime on 07/26/2021 Plan: General surgery consult Cardiology consult Rehab protocol Supportive care 07/21/2021: Supportive care Advance diet Family at bedside Continue cognitive improvement management 07/22/2021: Supportive care Appreciate Dr. Scott plan 07/23/2021: Appreciate Dr. Scott Supportive care 07/24/21: Hospice at [place] Focus on ADL's with OT in order to [place] home 07/25/2021: Supportive care Dr. Scott will check at surgeon regarding no output on colostomy 07/26/2021: CT scan reviewed Dr. Scott spoke with Dr. Cao at I appreciate his help Cefepime added for superimposed pneumonia with effusions (1) Bladder cancer (2) Colostomy in place (3) CVA (cerebral vascular accident) MANPREET COLVIN DO Jul 26, 2021 06:54
--- NOTE | 2021-07-26 07:19 | Progress Note - Surgery ---
DENISHA MARQUES 07/26/21 0719: Subjective Date Seen by a Provider: Jul 26, 2021 Time Seen by a Provider: 07:00 Subjective/Events-last exam Pt reports continued abdominal pain (01/26). Says it feels puffy and gassy, but denies N/V. CT scan of the abd and pelvis with contrast planned for today. There is gas in his colostomy bag, but no blood seen. Pt denies fever, chills and CP at this time. Pt's appetite remains decreased, encourage intake. Review of Systems General: No Chills; Fatigue, Malaise HEENT: No Head Aches; Visual Changes (continued blurry vision) Pulmonary: No Dyspnea, No Cough Cardiovascular: No: Chest Pain, Palpitations Gastrointestinal: Abdominal Pain (feels bloated and gassy); No: Nausea, Vomiting Musculoskeletal: No: neck pain, leg pain Neurological: Weakness (R sided following HEADER BOSS infarct); No: Change in speech Objective Exam Vital Signs Date Time Temp Pulse Resp B/P (MAP) Pulse Ox O2 Delivery O2 Flow Rate FiO2 07/25/21 21:00 93 Room Air 07/25/21 20:24 93 Room Air 07/25/21 19:24 36.3 80 20 125/86 (99) 93 Room Air 07/25/21 09:49 Room Air 07/25/21 07:42 37.0 82 18 140/93 (109) 91 Room Air I & O 07/26/21 07:00 Intake Total 1225 ml Output Total 1075 ml Balance 150 ml Capillary Refill : General Appearance: No Apparent Distress, Chronically ill, Thin HEENT: PERRL/EOMI Neck: Normal Inspection, Supple Respiratory: Lungs Clear, Normal Breath Sounds, No Accessory Muscle Use, No Respiratory Distress Cardiovascular: Regular Rate, Rhythm, No Murmur, Normal Peripheral Pulses Peripheral Pulses: 3+ Radial Pulses (R), 3+ Radial Pulses (L) Gastrointestinal: non tender, soft, other ( loop colostomy with some edema and blood clot present appears viable thin serosang drainage, urostomy right lower quadrant) Extremity: Normal Inspection, No Pedal Edema Neurologic/Psychiatric: Alert, Oriented x3, Depressed Affect Skin: Normal Color, Warm/Dry Lymphatic: No Adenopathy Results Lab Laboratory Tests 07/26/21 06:24: White Blood Count 19.0H, Red Blood Count 4.39, Hemoglobin 13.1L, Hematocrit 41, Mean Corpuscular Volume 93, Mean Corpuscular Hemoglobin 30, Mean Corpuscular Hemoglobin Concent 32, Red Cell Distribution Width 15.9H, Platelet Count 83L, Mean Platelet Volume 11.4, Immature Granulocyte % (Auto) 1, Neutrophils (%) (Auto) 90H, Lymphocytes (%) (Auto) 2L, Monocytes (%) (Auto) 6, Eosinophils (%) (Auto) 1, Basophils (%) (Auto) 0, Neutrophils # (Auto) 17.1H, Lymphocytes # (Auto) 0.5L, Monocytes # (Auto) 1.2H, Eosinophils # (Auto) 0.1, Basophils # (Auto) 0.1, Immature Granulocyte # (Auto) 0.1, Neutrophils % (Manual) 96, Lymphocytes % (Manual) 2, Monocytes % (Manual) 2, Percent Immature Platelet Frac tion 5.5, Blood Morphology Comment NORMAL, Sodium Level 136, Potassium Level 4.3, Chloride Level 107, Carbon Dioxide Level 17L, Anion Gap 12, Blood Urea Nitrogen 38H, Creatinine 1.25, Estimat Glomerular Filtration Rate 61, BUN/Creatinine Ratio 30, Glucose Level 112H, Calcium Level 8.3L, Corrected Ca lcium 9.0, Total Bilirubin 1.0, Aspartate Amino Transf (AST/SGOT) 35H, Alanine Aminotransferase (ALT/SGPT) 15, Alkaline Phosphatase 78, Total Protein 5.8L, Albumin 3.1L Assessment/Plan Assessment/Plan Assessment/Plan GI bleed upper versus lower GERD with recent history of coffee-ground emesis Gastritis Abdominal pain (01/26) Decreased appetite Metastatic bladder carcinoma Left HEADER BOSS infarct Bruising Swallowing issues CT scan of abd/pelvis with contrast today Patient on Pepcid, added Protonix 40 mg daily Follow hemoglobin, transfuse PRBC as needed Loop colostomy has some edema but it appears to be viable No surgical intervention at this time. Hgb stable Encourage food intake SARAH SCOTT DO 07/26/21 0936: Subjective Subjective/Events-last exam Patient laying in bed. Loop colostomy has gas coming through. No more blood from it. Patient has no appetite. Some abdominal discomfort that varies in intensity. Currently better. Denies n/v fever sweats chills or chest pain. WBC increasing. Ct scan abd/pelvis pending. Objective Exam General Appearance: No Apparent Distress, Chronically ill, Thin HEENT: PERRL/EOMI, Normal ENT Inspection Neck: Normal Inspection, Supple Respiratory: Chest Non Tender, No Accessory Muscle Use, No Respiratory Distress Cardiovascular: Regular Rate, Rhythm, No JVD Gastrointestinal: non tender, soft, other ( loop colostomy with minimal edema and blood clot present appears viable no blood, urostomy right lower quadrant) Extremity: Normal Inspection Neurologic/Psychiatric: Alert, Oriented x3 Skin: Normal Color, Warm/Dry Lymphatic: No Adenopathy Assessment/Plan Assessment/Plan Assessment/Plan GI bleed upper versus lower GERD with recent history of coffee-ground emesis Gastritis Abdominal pain Leukocytosis Decreased appetite Metastatic bladder carcinoma Left HEADER BOSS infarct Bruising Swallowing issues CT scan of abd/pelvis with contrast today Patient on Pepcid, Protonix 40 mg daily Follow hemoglobin, transfuse PRBC as needed Loop colostomy has less edema and it appears to be viable No surgical intervention at this time. Hgb stable Encourage food intake Supervisory-Addendum Brief Verification & Attestation Participated in pt care: history, MDM, physical Personally performed: exam, history, MDM, supervision of care Care discussed with: Medical Student Procedures: n/a Results interpretation: Verified all documentation Verification and Attestation of Medical Student E/M Service A medical student performed and documented this service in my presence. I reviewed and verified all information documented by the medical student and made modifications to such information, when appropriate. I personally performed the physical exam and medical decision making. Sarah Scott, Jul 26, 2021,09:37 DENISHA MARQUES Jul 26, 2021 07:19 SARAH SCOTT DO Jul 26, 2021 09:36
[2021-07-26] MEDS: MULTIVIT W/MINERALS TAB (THERAGRAN M) PO SCH (07:21)
[2021-07-26] MEDS ORDERED: NS 100 ML (IVPB) BAG IV ONE (07:45)
[2021-07-26] MEDS ORDERED: IOHEXOL 350 MG/ML 100 ML (OMNIPAQUE 350) VIAL IV ONE (07:45)
[2021-07-26] MEDS ORDERED: HOLD METFORMIN - RECEIVED CONTRAST 20 ML VIAL IV SCH (07:45)
[2021-07-26 07:48] VITALS: BP 132/83
[2021-07-26] MEDS: prednisoLONE 1% OPTH (PRED FORTE) 5 ML BTL OD SCH ×4 (07:53→21:13)
[2021-07-26] MEDS: CATHETER FLUSH 10 ML SYR IV PRN (07:54)
[2021-07-26] MEDS: PANTOPRAZOLE 40 MG (PROTONIX) VIAL IV SCH (07:54)
[2021-07-26] MEDS: polyethylene glycoL POWDER 17 GM (MIRALAX) PACK PO SCH ×2 (07:55→21:11)
[2021-07-26] MEDS: OMEGA 3 (FISH OIL) 1000 MG CAP PO SCH (07:55)
[2021-07-26] MEDS: DOCUSATE SODIUM 100 MG (COLACE) CAP PO SCH ×2 (07:55→21:12)
[2021-07-26] MEDS: ATENOLOL 50 MG (TENORMIN) TAB PO SCH (07:55)
[2021-07-26] MEDS: FAMOTIDINE 20 MG (PEPCID) TABLET PO SCH (07:56)
[2021-07-26] MEDS: SENNA W/DOCUSATE (SENOKOT S) TABLET PO SCH ×2 (07:56→21:11)
[2021-07-26] MEDS: DORZOLAMIDE/TIMOLOL (COSOPT) 2-0.68% 10 ML BTL OD SCH ×2 (08:02→21:14)
[2021-07-26] MEDS: BRIMONIDINE 0.2% (ALPHAGAN) OPHTH SOLN 5 ML BTL OD SCH ×2 (08:09→21:14)
[2021-07-26] MEDS ORDERED: ONDANSETRON 4 MG/2 ML (SDV) Z0FRAN ONE (08:48)
[2021-07-26] MEDS: ONDANSETRON 4 MG/2 ML (SDV) Z0FRAN IVP PRN (08:51)
--- NOTE | 2021-07-26 09:27 | Diagnostic Imaging Report ---
Indication: Small bowel obstruction. Comparison: None Findings: Single view of the abdomen demonstrates midline skin clips. Ostomy is seen in the left midabdomen. There is no overt obstruction or ileus. Impression: No ileus or obstruction identified. Dictated by: Dictated on workstation # [id number]
--- NOTE | 2021-07-26 09:28 | Occupational Ther Daily Note ---
OT Current Status-Daily Note Subjective Difficult to get accurate pain scale. When asked if patient was having any pain, he verbalizes no. RN states pt complained of nausea and abdominal pain just prior to OT arrival. When OT questions further on if he is having nausea he states "oh yeah." Appearance Pt returned to supine in bed, all needs within reach. Mental Status/Objective Patient Orientation: Person, Confused Attachments: Colostomy/Ileostomy, IV ADL-Treatment Therapy Code Descriptions/Definitions Functional [place] Measure: 0=Not Assessed/NA 4=Minimal Assistance 1=Total Assistance 5=Supervision or Setup 2=Maximal Assistance 6=Modified [place] 3=Moderate Assistance 7=Complete IndependenceSCALE: Activities may be completed with or without assistive devices. 3-Hetogvdebb-vcdqkcm completes the activity by him/herself with no assistance from a helper. 5-Set-up or Clean-up Assistance-helper sets up or cleans up; patient completes activity. [place] assists only prior to or following the activity. 4-Supervision or Touching Assistance-helper provides verbal cues and/or touching/steadying and/or contact guard assistance as patient completes activity. Assistance may be provided throughout the activity or intermittently. 3-Partial/Moderate Assistance-helper does LESS THAN HALF the effort. [place] lifts, holds or supports trunk or limbs, but provides less than half the effort. 2-Substantial/Maximal Assistance-helper does MORE THAN HALF the effort. [place] lifts or holds trunk or limbs and provides more than half the effort. 9-Ndigsnylz-tfagdj does ALL the effort. Patient does none of the effort to complete the activity. Or, the assistance of 2 or more helpers is required for the patient to complete the activity. If activity was not attempted, code reason: 7-Patient Refused. 9-Not Applicable-not attempted and the patient did not perform the activity before the current illness, exacerbation or injury. 10-Not Attempted due to Environmental Limitations-(lack of equipment, weather restraints, etc.). 88-Not Attempted due to Medical Conditions or Safety Concerns. Oral Hygiene (QC): 2 Upper Body Dressing (QC): 2 Lower Body Dressing (QC): 2 Toileting Hygiene (QC): 1 (colostomy, urostomy bags) Pt resting in bed at OT arrival. Significant time, cues and assist (mod a) to initiate sitting EOB. While sitting, pt often attempting to lay back down. Assist/cues to maintain sitting position. When cued to brush teeth, pt often gesturing correct movement with hand but does not initiate use of toothbrush. Due to inability to follow verbal cues, OT had pt follow wiggling finger from Left visual field to Right; gentle hand on face to initiate scanning to the right. Pt still unable to locate toothbrush placed on right side despite stating he could see OT's wiggling finger right above it. HOHA to guide hand to toothbrush. Assist needed for correct grasp and to apply toothpaste. HOHA also required to guide hand to mouth. Once positioned properly, pt able to initiate brushing teeth. Cues needed to spit and rinse. Pt may need supervision/assist with feeding tasks. Nursing staff will be notified. During dressing tasks, Pt is able to verbalize correct sequence order when cued, but unable to motor plan accurately. Assist needed to guide arm/leg into sleeve/pant leg. Pt often not scanning in correct direction in order to see what he is doing. For instance, pt will look straight forward when attempting to thread feet into pants and thus often misses leg hole. He fatigues easily and requires several lengthy rest breaks throughout session. Zero motivation to perform ADLs. Education OT Patient Education: Correct positioning, Modified ADL techniques, Progress toward Goal/Update tx plan, Purpose of tx/functional activities, Rehab process, Safety issues, Transfer techniques Teaching Recipient: Patient Teaching Methods: Demonstration, Discussion Response to Teaching: Verbalize Understanding, Unable to Return Demonstration OT Short Term Goals Short Term Goals Time Frame: Aug 04, 2021 Toileting hygiene: 3 Shower/bathe self: 3 Lower body dressin OT Bag Checker Goals Bag Checker Goals Time Frame: Aug 20, 2021 Eating (QC): 5 Oral Hygiene (QC): 5 Toileting Hygiene (QC): 4 Shower/Bathe Self (QC): 4 Upper Body Dressing (QC): 5 Lower Body Dressing (QC): 4 On/Off Footwear (QC): 4 Additional Goals: 1-Demonstrate ADL Tasks, 2-Verbalize Understanding, 3- ImproveStrength/Stella 1=Demonstrate adherence to instructed precautions during ADL tasks. 2=Patient will verbalize/demonstrate understanding of assistive devices/modifications for ADL. 3=Patient will improve strength/tolerance for activity to enable patient to perform ADL's. OT Education/Plan Problem List/Assessment Assessment: Decreased Activ Tolerance, Decreased Safety Aware, Decreased UE Strength, Impaired Bed Mobility, Impaired Cognition, Impaired Funct Balance, Impaired I ADL's, Impaired Self-Care Skills Discharge Recommendations Plan/Recommendations: Continue POC Therapy Discharge Recommendati: Scheduled Assistance, Bath Aide, Post Acute OT Treatment Plan/Plan of Care Treatment,Training & Education: Yes Patient would benefit from OT for education, treatment and training to promote independence in ADL's, mobility, safety and/or upper extremity function for ADL's. Plan of Care: ADL Retraining, Functional Mobility, Group Exercise/Act as Ind, UE Funct Exercise/Act Treatment Duration: Aug 20, 2021 Frequency: At least 5 of 7 days/Wk (IRF) Estimated Hrs Per Day: 1.5 hours per day Agreement: Yes Rehab Potential: Guarded Time/GCodes Start Time: 08:45 Stop Time: 09:40 Total Time Billed (hr/min): 55 Billed Treatment Time 1 visit ADL x4 Tracy Robles OT Jul 26, 2021 09:28
--- NOTE | 2021-07-26 10:40 | Physical Therapy Daily Note ---
PT Daily Note-Current Subjective Patient in bed pre tx, agrees to PT, has no pain at rest. Apparently patient got nausea and dizziness with trying to get out of bed to get to CT. Appearance Patient in bed post tx with nurse call, phone, tray, all needs met. Mental Status Patient Orientation: Person, Place, Situation Attachments: Colostomy/Ileostomy Transfers SCALE: Activities may be completed with or without assistive devices. 9-Lrfssppyzr-hjvokxj completes the activity by him/herself with no assistance from a helper. 5-Set-up or Clean-up Assistance-helper sets up or cleans up; patient completes activity. [place] assists only prior to or following the activity. 4-Supervision or Touching Assistance-helper provides verbal cues and/or [place] brinda/steadying and/or contact guard assistance as patient completes activity. Assistance may be provided throughout the activity or intermittently. 3-Partial/Moderate Assistance-helper does LESS THAN HALF the effort. [place] lifts, holds or supports trunk or limbs, but provides less than half the effort. 2-Substantial/Maximal Assistance-helper does MORE THAN HALF the effort. [place] lifts or holds trunk or limbs and provides more than half the effort. 6-Vozpyftcw-ybgjkk does ALL the effort. Patient does none of the effort to complete the activity. Or, the assistance of 2 or more helpers is required for the patient to complete the activity. If activity was not attempted, code reason: 7-Patient Refused. 9-Not Applicable-not attempted and the patient did not perform the activity before the current illness, exacerbation or injury. 10-Not Attempted due to Environmental Limitations-(lack of equipment, weather restraints, etc.). 88-Not Attempted due to Medical Conditions or Safety Concerns. during exercise progressively raise the head of the bed for accomodation, got to about 65 degrees before patient complained of dizziness, decreased slightly and it improved, after a while he was starting to get nauseated so had to lower the head of the bed more, patient was not able to sit to the side of the bed. Weight Bearing Full Weight Bearing Full Weight Bearing Exercises Supine Ex: Ankle pumps, Quad Set, Glut sets, Heel Slides, Short Arc Quads, Stra ight leg raise, Hip abd/add Supine Reps: 20 (2 sets) Treatments LE strengthening, sitting accomodation Assessment Current Status: Poor Progress Patient declining in general with functional mobility, participates with minimal effort, constant cues to stay on task, frequent rest breaks PT Short Term Goals Short Term Goals Time Frame: Jul 27, 2021 Roll Left & Right: 6 Sit to lyin Lying to sitting on side of be: 6 Sit to stand: 4 (SBA) Chair/pzn-yl-oztag transfer: 4 (CGA) Walk 10 feet: 4 (CGA) Walk 50 feet with two turns: 4 (CA) Walk 150 feet: 4 (CGA) PT Fpc Goals Fpc Goals PT Principal Process Engineer Goals Time Frame: Aug 10, 2021 Roll Left & Right (QC): 6 Sit to Lying (QC): 6 Lying-Sitting on Side/Bed(QC): 6 Sit to Stand (QC): 5 Chair/Mta-gh-Iuxyo Xfer(QC): 4 (SBA) Toilet Transfer (QC): 4 (SBA) Car Transfer (QC): 4 (SBA) Does the Patient Walk: Yes Walk 10 feet (QC): 4 (SBA) Walk 50ft with 2 Turns (QC): 4 (SBA) Walk 150 ft (QC): 4 (SBA) Walking 10ft on Uneven Surface: 4 (SBA) 1 Step (curb) (QC): 4 (SBA) 4 Steps (QC): 4 (SBA) 12 Steps (QC): 88 Picking up an Object (QC): 4 (SBA) Wheel 50 feet with 2 turns (QC: 9 Wheel 150 feet: 9 PT Plan Problem List Problem List: Activity Tolerance, Functional Strength, Safety, Balance, Gait, Transfer, Bed Mobility, ROM Treatment/Plan Treatment Plan: Continue Plan of Care Treatment Plan: Bed Mobility, Education, Functional Activity Stella, Functional Strength, Group Therapy, Gait, Safety, Therapeutic Exercise, Transfers Treatment Duration: Aug 10, 2021 Frequency: At least 5 of 7 days/Wk (IRF) Estimated Hrs Per Day: 1.5 hours per day Patient and/or Family Agrees t: Yes Safety Risks/Education Patient Education: Correct Positioning, Safety Issues Teaching Recipient: Patient Teaching Methods: Demonstration, Discussion Response to Teaching: Reinforcement Needed Time/GCodes Time In: 1000 Time Out: 1030 Total Billed Treatment Time: 30 Total Billed Treatment 1 visit EX 30' DEVAUGHN ROJAS PT Jul 26, 2021 10:39
--- NOTE | 2021-07-26 10:53 | Speech Therapy Daily Note ---
Speech Daily Progress Note Subjective Date Seen by Provider: Jul 26, 2021 Time Seen by Provider: 08:30 The patient was lying in bed, eyes closed upon entrance to his room from the clinician. The patient responded verbally to the clinician's greeting, however, remained with his eyes closed most of the session. Objective The patient displayed the ability to follow one-step directions accurately following extended response time and verbal repetition. Additionally, the patient was able to verbally communicate his wants and needs as he was able to communicate he was feeling nauseas during attempts of transfer. The patient responded appropriately to simple yes and no questions. During the second session, the patient's initially refused therapy for the patient, stating he "didn't feel like it right now." The clinician asked the patient if he would be able to participate in orientation exercises and review of swallowing strategies and the patient agreed to participation. Orientation: The patient stated the month was "November" and the year was "2011." T he patient was unable to state his location ([facility] or [place]). The patient is currently NPO for a procedure, however, has displayed reduced appetite throughout the weekend. The clinician reviewed supplemental options for increased nutrition, as well as, the importance of his safe swallowing strategies. Per patient's , "He's not really eating any ways." Assessment Assessment Current Status: Poor Progress Treatment Plan Continue Plan of Care Speech Short Term Goals Short Term Goals Short Term Goals 1. The patient will demonstrate increased attention to task, displaying appropriate attention for three minutes with moderate clinician verbal cueing. 2. The patient will display compliance with safe swallowing practices with 90% accuracy, independently. Speech Mcfp Goals Tailing Hand Goals 1. The patient will demonstrate improved functional cognition for a safe return to the least restrictive environment. 2. The patient will tolerate the least restrictive diet without s/s of suspected aspiration with 90% accuracy, independently. Speech-Plan Treatment Plan Speech Therapy Treatment Plan: Continue Plan of Care Treatment Duration: Aug 04, 2021 Frequency: 4 times per week (Four to five times per week. ) Estimated Hrs Per Day: .5 hour per day Rehab Potential: Guarded Barriers to Learning: Fatigue, Cognition Safety Risks/Education Teaching Recipient: Patient, Family Teaching Methods: Discussion Response to Teaching: Reinforcement Needed Education Topics Provided: Plan of Care Time Speech Therapy Time In: 08:30 Speech Therapy Time Out: 08:45 Total Billed Time: 30 Billed Treatment Time 1, [facility], [facility] 0860 to [id number] to 1000 NEIL Wylie Jul 26, 2021 10:53
--- NOTE | 2021-07-26 12:09 | Diagnostic Imaging Report ---
PROCEDURE: CT abdomen and pelvis with contrast. TECHNIQUE: Multiple contiguous axial images were obtained through the abdomen and pelvis after administration of intravenous contrast. Auto Exposure Controls were utilized during the CT exam to meet ALARA standards for radiation dose reduction. All CT scans use one or more of the following dose optimizing techniques: Automated exposure control, MA and/or KvP adjustment based on patient size and exam type or iterative reconstruction. INDICATION: Bladder carcinoma. Patient has had recent cystectomy with ileal conduit and urostomy in the right lower quadrant. Patient also has a loop colostomy in the left lower quadrant due to colonic invasion. COMPARISON: No prior studies are available for comparison. FINDINGS: Imaging through the lung bases does show a moderate-sized right pleural effusion with some compressive atelectasis in the right lower lobe. There is a small left pleural effusion with minimal left basilar subsegmental atelectasis. There are numerous cystic lesions within the liver. The gallbladder is unremarkable. No biliary ductal dilatation is seen. The pancreas is unremarkable. There is some mild perihepatic and perisplenic fluid. No adrenal mass is identified. Left kidney contains approximately 3 mm nonobstructing calculus in the lower pole. There also appears to be a nonobstructing calculus in the right kidney. There are multiple renal cysts present. Both renal collecting systems and ureters are slightly dilated. Patient does have postop changes from cystectomy with the urostomy in the right lower quadrant. Aorta is nonaneurysmal. There is a large amount of stool in the right colon. There is an ostomy in the left lower quadrant. There is significant circumferential wall thickening versus mass in the region of the rectum and sigmoid. No well-formed fluid collection or abscess is identified. No definite abdominal or pelvic lymphadenopathy is seen. Bony structures are nonacute. IMPRESSION: 1. Moderate right and small left pleural effusion. There is compressive atelectasis in the right lower lobe. 2. Hepatic and renal cysts. 3. Bilateral nonobstructing renal calculi. 4. Postop changes from cystectomy with urinary diversion. There is also an ostomy in the left lower quadrant. There is marked abnormal thickening involving portions of the rectum and sigmoid colon, which could represent areas of the known tumor involvement from bladder neoplasm. 5. There is a small amount of free fluid in the abdomen and pelvis, but no well-formed fluid collection or abscess is identified. Dictated by: Dictated on workstation # [id number]
[2021-07-26] MEDS ORDERED: PATIENT MAY USE OWN MEDS, ALL MC SCH (13:15)
--- NOTE | 2021-07-26 13:36 | Physical Therapy Daily Note ---
PT Daily Note-Current Subjective Patient in bed pre tx, agrees to PT, has no complaints of pain at rest. Will be co-treating with OT for part of tx due to poor patient mobility, strength, endurance, severe debility, coordinate UE and LE during activity, safety and reduce risk of falls. Appearance Patient in bed post tx with nurse call, phone, tray, bed alarm on. Mental Status Patient Orientation: Person, Confused Transfers SCALE: Activities may be completed with or without assistive devices. 8-Izdfipygnw-mymcbep completes the activity by him/herself with no assistance from a helper. 5-Set-up or Clean-up Assistance-helper sets up or cleans up; patient completes activity. [place] assists only prior to or following the activity. 4-Supervision or Touching Assistance-helper provides verbal cues and/or touching/steadying and/or contact guard assistance as patient completes activity. Assistance may be provided throughout the activity or intermittently. 3-Partial/Moderate Assistance-helper does LESS THAN HALF the effort. [place] lifts, holds or supports trunk or limbs, but provides less than half the effort. 2-Substantial/Maximal Assistance-helper does MORE THAN HALF the effort. [place] lifts or holds trunk or limbs and provides more than half the effort. 3-Topqnmxun-fnvifq does ALL the effort. Patient does none of the effort to complete the activity. Or, the assistance of 2 or more helpers is required for the patient to complete the activity. If activity was not attempted, code reason: 7-Patient Refused. 9-Not Applicable-not attempted and the patient did not perform the activity before the current illness, exacerbation or injury. 10-Not Attempted due to Environmental Limitations-(lack of equipment, weather restraints, etc.). 88-Not Attempted due to Medical Conditions or Safety Concerns. Roll Left & Right (QC): 3 Sit to Lying (QC): 3 Lying to Sitting/Side of Bed(Q: 3 Sit to Stand (QC): 3 Chair/Ctt-dq-Iyrka Xfer(QC): 3 Weight Bearing Full Weight Bearing Full Weight Bearing Wheelchair Training Does the Pt Use a Wheelchair?: Yes Wheel 50 ft with 2 turns (QC): 3 Wheel 150 ft (QC): 3 Type of Wheelchair: Manual 150'x2 Neuromuscular scanning activity picking up different colored handy bags while propelling in WC Treatments PT performed bed mobility and transfers, WC mobility, scanning activity, OT performed scanning activity, UE positioning and safety during activity. Assessment Current Status: Poor Progress Patient provides minimal effort, now doesn't seem to be able to see objects on the left side either PT Short Term Goals Short Term Goals Time Frame: Jul 27, 2021 Roll Left & Right: 6 Sit to lyin Lying to sitting on side of be: 6 Sit to stand: 4 (SBA) Chair/xhc-sk-gronp transfer: 4 (CGA) Walk 10 feet: 4 (CGA) Walk 50 feet with two turns: 4 (CA) Walk 150 feet: 4 (CGA) PT Ent Surgeon Goals Ent Surgeon Goals PT Usp Goals Time Frame: Aug 10, 2021 Roll Left & Right (QC): 6 Sit to Lying (QC): 6 Lying-Sitting on Side/Bed(QC): 6 Sit to Stand (QC): 5 Chair/Hfa-he-Lncjf Xfer(QC): 4 (SBA) Toilet Transfer (QC): 4 (SBA) Car Transfer (QC): 4 (SBA) Does the Patient Walk: Yes Walk 10 feet (QC): 4 (SBA) Walk 50ft with 2 Turns (QC): 4 (SBA) Walk 150 ft (QC): 4 (SBA) Walking 10ft on Uneven Surface: 4 (SBA) 1 Step (curb) (QC): 4 (SBA) 4 Steps (QC): 4 (SBA) 12 Steps (QC): 88 Picking up an Object (QC): 4 (SBA) Wheel 50 feet with 2 turns (QC: 9 Wheel 150 feet: 9 PT Plan Problem List Problem List: Activity Tolerance, Functional Strength, Safety, Balance, Gait, Transfer, Bed Mobility, ROM Treatment/Plan Treatment Plan: Continue Plan of Care Treatment Plan: Bed Mobility, Education, Functional Activity Stella, Functional Strength, Group Therapy, Gait, Safety, Therapeutic Exercise, Transfers Treatment Duration: Aug 10, 2021 Frequency: At least 5 of 7 days/Wk (IRF) Estimated Hrs Per Day: 1.5 hours per day Patient and/or Family Agrees t: Yes Safety Risks/Education Patient Education: Transfer Techniques, Correct Positioning, W/C Management, Safety Issues Teaching Recipient: Patient Teaching Methods: Demonstration, Discussion Response to Teaching: Reinforcement Needed Time/GCodes Time In: 1300 Time Out: 1335 Total Billed Treatment Time: 35 Total Billed Treatment 1 visit FA 35' co-treated from [id number] DEVAUGHN ROJAS PT Jul 26, 2021 13:36
--- NOTE | 2021-07-26 13:40 | Occupational Ther Daily Note ---
OT Current Status-Daily Note Subjective Pt denies pain, requires encouragement to participate throughout entire session. Appearance Pt returned to supine in bed, all needs within reach. Mental Status/Objective Patient Orientation: Person, Confused Attachments: IV ADL-Treatment Therapy Code Descriptions/Definitions Functional Steward Measure: 0=Not Assessed/NA 4=Minimal Assistance 1=Total Assistance 5=Supervision or Setup 2=Maximal Assistance 6=Modified Steward 3=Moderate Assistance 7=Complete IndependenceSCALE: Activities may be completed with or without assistive devices. 1-Cikptsgphf-yedwfru completes the activity by him/herself with no assistance from a helper. 5-Set-up or Clean-up Assistance-helper sets up or cleans up; patient completes activity. [place] assists only prior to or following the activity. 4-Supervision or Touching Assistance-helper provides verbal cues and/or touching/steadying and/or contact guard assistance as patient completes activity. Assistance may be provided throughout the activity or intermittently. 3-Partial/Moderate Assistance-helper does LESS THAN HALF the effort. [place] lifts, holds or supports trunk or limbs, but provides less than half the effort. 2-Substantial/Maximal Assistance-helper does MORE THAN HALF the effort. [place] lifts or holds trunk or limbs and provides more than half the effort. 5-Hnkpsphys-hqwnjv does ALL the effort. Patient does none of the effort to complete the activity. Or, the assistance of 2 or more helpers is required for the patient to complete the activity. If activity was not attempted, code reason: 7-Patient Refused. 9-Not Applicable-not attempted and the patient did not perform the activity before the current illness, exacerbation or injury. 10-Not Attempted due to Environmental Limitations-(lack of equipment, weather restraints, etc.). 88-Not Attempted due to Medical Conditions or Safety Concerns. Other Treatment Co-treat with PT due to decline in function and need of 2 skilled clinicians to progress mobility and adls. Pt requires simplification and step by step cues for all transfers this session. Significant time to initiate and process commands. Once in w/c, pt requires HOHA to locate rim of w/c (for both UE's) in order to propel forward. Pt asked to retrieve 10 colored handy bags placed at eye level and to the right in order to encourage scanning to impaired side. Consistent verbal and tactile cues to turn head. Pt locates 0/10 handy bags with max cues. When going down [place] in opposite direction and handy bags placed in Left visual field, Pt again misses all 10. It is noted that Pt is able to correctly verbalize activity instructions to therapist. When OT places handy bag directly in front of him, pt correctly identifies handy bag color 1/10 (10%). When questioned, pt clarifies that he was just "guessing." Zero interest in participating. Education OT Patient Education: Correct positioning, Disease process, Modified ADL techniques, Progress toward Goal/Update tx plan, Purpose of tx/functional activities, Rehab process, Safety issues, Transfer techniques, W/C management Teaching Recipient: Patient Teaching Methods: Demonstration, Discussion Response to Teaching: Verbalize Understanding, Unable to Return Demonstration, Reinforcement Needed OT Short Term Goals Short Term Goals Time Frame: Aug 04, 2021 Toileting hygiene: 3 Shower/bathe self: 3 Lower body dressin OT Half-Way Goals Law Examiner Goals Time Frame: Aug 20, 2021 Eating (QC): 5 Oral Hygiene (QC): 5 Toileting Hygiene (QC): 4 Shower/Bathe Self (QC): 4 Upper Body Dressing (QC): 5 Lower Body Dressing (QC): 4 On/Off Footwear (QC): 4 Additional Goals: 1-Demonstrate ADL Tasks, 2-Verbalize Understanding, 3- ImproveStrength/Stella 1=Demonstrate adherence to instructed precautions during ADL tasks. 2=Patient will verbalize/demonstrate understanding of assistive devices/modifications for ADL. 3=Patient will improve strength/tolerance for activity to enable patient to perform ADL's. OT Education/Plan Problem List/Assessment Assessment: Decreased Activ Tolerance, Decreased Safety Aware, Decreased UE Strength, Dependent Transfers, Impaired Bed Mobility, Impaired Cognition, Impaired Funct Balance, Impaired I ADL's, Impaired Self-Care Skills, Visual- Perceptual Deficit Discharge Recommendations Plan/Recommendations: Continue POC Therapy Discharge Recommendati: Post Acute OT Treatment Plan/Plan of Care Treatment,Training & Education: Yes Patient would benefit from OT for education, treatment and training to promote independence in ADL's, mobility, safety and/or upper extremity function for ADL's. Plan of Care: ADL Retraining, Functional Mobility, Group Exercise/Act as Ind, UE Funct Exercise/Act Treatment Duration: Aug 20, 2021 Frequency: At least 5 of 7 days/Wk (IRF) Estimated Hrs Per Day: 1.5 hours per day Agreement: Yes Rehab Potential: Guarded Time/GCodes Start Time: 13:00 Stop Time: 13:30 Total Time Billed (hr/min): 30 Billed Treatment Time 1 visit FA Tracy Ghosh OT Jul 26, 2021 13:40
[2021-07-26] MEDS: KETOROLAC 0.5% OD SCH ×2 (17:00→21:13)
--- NOTE | 2021-07-26 17:21 | Podiatry Progress Note ---
Standard Progress Note Progress Notes/Assess & Plan Date Seen by a Provider: Jul 26, 2021 Time Seen by a Provider: 17:20 Progress/Assessment & Plan Consultation dictated. Foot care given. He is welcome to follow up in the office as needed. Final Diagnosis Onychomycosis, Peripheral Neuropathy SKYLAR VIGIL DPM Jul 26, 2021 17:21
[2021-07-26] MEDS ORDERED: MILK OF MAGNESIA 400 MG/5 ML 30 ML UDC PO NR (18:45)
[2021-07-26] MEDS: CEFEPIME INJECTION 1,000 MG in NS (IVPB) 50 ML IV SCH (18:58)
[2021-07-26 20:00] VITALS: BP 136/78
[2021-07-26] MEDS: MELATONIN 3 MG TABLET PO SCH (21:12)
[2021-07-26] MEDS: PANTOPRAZOLE 40 MG (PROTONIX) TAB PO SCH (21:12)
[2021-07-26] MEDS: ASPIRIN E.C. 81 MG (ECOTRIN) TAB PO SCH (21:12)
[2021-07-26] MEDS: LATANOPROST 0.005% (XALATAN) OPHTH SOLN 2.5 ML OD SCH (21:14)
--- NOTE | 2021-07-26 22:52 | CONSULTATION REPORT ---
DATE OF SERVICE: 07/26/2021 REASON FOR CONSULTATION: Foot care. HISTORY OF PRESENT ILLNESS: This is a 71-year-old male who was visited [facility] for rehabilitation. He has severe disability secondary to multiple surgeries, history of bladder cancer diagnosed in 03/2020, status post TUR cystectomy with prostatectomy with ileal conduit in 05/2020. The patient then had some invasion into the rectum, colonic obstruction. He was then sent to for surgery and eventually had a cerebrovascular accident in 07/13/2021. The patient has difficulty reaching for and caring for his feet. He is complaining of extremely long nails at this juncture. PAST MEDICAL HISTORY: Abdominal surgery, AFib, coronary artery disease, hypercholesterolemia, hypertension, history of stroke, benign prostatic hypertrophy, bladder infection, gastroesophageal reflux, arthritis, bladder cancer with history of chemotherapy and surgical intervention. ALLERGIES: THE PATIENT IS ALLERGIC TO CHLORHEXIDINE, ERYTHROMYCIN, SILVER AND TEGADERM. CURRENT MEDICATIONS: Listed on the patient's chart. PHYSICAL EXAMINATION: LOWER EXTREMITY: The patient has 1/4 dorsalis pedis pulse on the right, 2/4 on the left. Patient has 2/4 posterior tibial pulse on the right and 0/4 posterior tibial pulse left. Cap refill time is less than 3 seconds. Digital hair growth is present. Thin skin. NEUROLOGIC: The patient has diminished protective sensation with 10-gram monofilament wire examination bilaterally. There is diminished deep tendon reflexes to the Achilles tendon bilaterally. Vibratory sensation is also diminished to the forefoot bilaterally. DERMATOLOGIC: The patient has thick yellow dystrophic toenail with subungual debris R2, L1, 4, 5. The remainder of the nails are extremely long. MUSCULOSKELETAL FINDINGS: The patient has 4/5 muscle strength to the four major quadrants of the foot. ASSESSMENT: Peripheral neuropathy, onychomycosis, muscle weakness. PLAN: Various treatment options were discussed with the patient today. His toenails were debrided manually mechanically. Betadine applied associated with the R2, L1, 4, 5 digits. We talked about heel pressure precautions with the patient as well as other accommodative padding that can be applied. The patient is welcome to follow up in my office upon discharge. Job ID: [id number] DocumentID: [id number] Dictated Date: 07/26/2021 17:27:52 Furnace Door Tender Date: 07/26/2021 22:52:15 Dictated By: SKYLAR VIGIL DPM
[2021-07-27] MEDS: CEFEPIME INJECTION 1,000 MG in NS (IVPB) 50 ML IV SCH ×3 (03:03→18:47)
[2021-07-27 05:43] LABS: BASOPHILS # (AUTO) 0.1 10^3/uL (0.0-0.1); BASOPHILS % (AUTO) 0 % (0-10); EOSINOPHILS # (AUTO) 0.1 10^3/uL (0.0-0.3); EOSINOPHILS % (AUTO) 0 % (0-10); MEAN CORPUSCULAR VOLUME 94 fL (80-99); MEAN PLATELET VOLUME 11.8 fL (9.0-12.2); MONOCYTES % (AUTO) 6 % (0-12)
[2021-07-27 05:45] LABS: HEMATOCRIT 42 % (40-54); HEMOGLOBIN 13.4 g/dL (13.3-17.7); LYMPHOCYTES # (AUTO) 0.5 10^3/uL (1.0-4.0); LYMPHOCYTES % (AUTO) 2 % (12-44); MEAN CORPUSCULAR HEMOGLOBIN 30 pg (25-34); MEAN CORPUSCULAR HGB CONC 32 g/dL (32-36); MONOCYTES # (AUTO) 1.2 10^3/uL (0.0-1.0); NEUTROPHILS # (AUTO) 17.8 10^3/uL (1.8-7.8); NEUTROPHILS % (AUTO) 90 % (42-75); PLATELET COUNT 84 10^3/uL (130-400); WHITE BLOOD COUNT 19.8 10^3/uL (4.3-11.0)
[2021-07-27 05:54] LABS: ALBUMIN 3.2 GM/DL (3.2-4.5); POTASSIUM 4.4 MMOL/L (3.6-5.0)
[2021-07-27 05:55] LABS: CALCIUM 8.2 MG/DL (8.5-10.1)
[2021-07-27 05:57] LABS: TOTAL PROTEIN 6.1 GM/DL (6.4-8.2)
--- NOTE | 2021-07-27 05:59 | PM&R Progress Note ---
Subjective HPI/CC On Admission Date Seen by Provider: Jul 27, 2021 Time Seen by Provider: 11:00 Subjective/Events-last exam 07/27/2021: Pt will go home on hospice No longer participating No stool in the colostomy Appreciate Dr. Scott consult 07/26/2021: Pt doing about the same CT scan done as Dr. Scott requested Abdominal series [place] for [place] [id number] I spoke with head of PT and he will focus on functional improvements Pleural effusions noted so will cover for pneumonia superimposed within the effusion No evidence of sepsis on work-up 07/25/2021: Patient the same Eating 4 bites per meal Son thinks he is doing great since he is eating that much which patient appears to be getting more cachectic and weak No output in colostomy except for blood We will have Dr. Scott reach out to tomorrow My recommendation is discharge home on hospice 07/24/21: Patient about the same Won't eat much Weakness noted Blood in colostomy minimal output but without much food consumption the amount is very low anyway Had a very nova discussion with and son about the realistic plan for patient and Hospice is definitely the plan since had her parents on that program at end of their lives I will speak to Maurice head of therapy and have him focus on all efforts of OT for them to be able to bring him home and start Hospice at [place] 07/23/2021: Patient doing about the same and son at the bedside We will discontinue Bentyl at 's request Patient appears to have a poor prognosis and unsure if they are fully aware of that The goal will be to see what can be done to discharge him to go to appointment on Monday at so they can talk to him about prognosis 07/22/2021: Patient doing well at bedside called talk to nurse surgeon bleeding from his colostomy and Dr. Scott counseled her on the plan Checked meds and labs Patient appears to be very end stage No pain is reported 07/21/2021: Pt doing pretty well and son are at the bedside O2 is off now Speech therapy will do a swallow eval and allow him to eat pizza that he is requesting Ostomy is flowing well Pt is low vision Left flank has a bruise Prognosis is very guarded per Labs reviewed Dr. Scott will be consulted Review of Systems General: Fatigue, Malaise Gastrointestinal: Abdominal Pain Focused Exam Lactate Level 07/26/21 16:34: Lactic Acid Level 1.31 Objective Exam Vital Signs Vital Signs Date Time Temp Pulse Resp B/P (MAP) Pulse Ox O2 Delivery O2 Flow Rate FiO2 07/27/21 21:00 93 Room Air 07/27/21 20:00 36.2 92 20 127/88 (101) 07/22/21 16:29 0.00 Capillary Refill : General Appearance: No Apparent Distress, WD/WN, Chronically ill, Thin, Other HEENT: PERRL/EOMI, Normal ENT Inspection, Pharynx Normal Neck: Full Range of Motion, Normal Inspection, Non Tender, Supple, Carotid Bruit Respiratory: Chest Non Tender, Lungs Clear, Normal Breath Sounds, No Accessory Muscle Use, No Respiratory Distress Cardiovascular: Regular Rate, Rhythm, No Edema, No Gallop, No JVD, No Murmur, Normal Peripheral Pulses Gastrointestinal: Normal Bowel Sounds, No Organomegaly, No Pulsatile Mass, Non Tender, Soft Back: Normal Inspection, No CVA Tenderness, No Vertebral Tenderness Extremity: Normal Capillary Refill, Normal Inspection, Normal Range of Motion, Non Tender, No Calf Tenderness, No Pedal Edema Neurologic/Psychiatric: Alert, Oriented x3, No Motor/Sensory Deficits, document control coordinator II- XII Norm as Tested, Abnormal Gait, Depressed Affect, Motor Weakness Skin: Normal Color, Warm/Dry Lymphatic: No Adenopathy Results/Procedures Lab Laboratory Tests 07/27/21 05:25 Patient resulted labs reviewed. FIM Transfers Therapy Code Descriptions/Definitions Functional [place] Measure: 0=Not Assessed/NA 4=Minimal Assistance 1=Total Assistance 5=Supervision or Setup 2=Maximal Assistance 6=Modified [place] 3=Moderate Assistance 7=Complete IndependenceSCALE: Activities may be completed with or without assistive devices. 1-Fpgnaoawmx-tucbqph completes the activity by him/herself with no assistance from a helper. 5-Set-up or Clean-up Assistance-helper sets up or cleans up; patient completes activity. Only assists only prior to or following the activity. 4-Supervision or Touching Assistance-helper provides verbal cues and/or touching/steadying and/or contact guard assistance as patient completes activity. Assistance may be provided throughout the activity or intermittently. 3-Partial/Moderate Assistance-helper does LESS THAN HALF the effort. Only lifts, holds or supports trunk or limbs, but provides less than half the effort. 2-Substantial/Maximal Assistance-helper does MORE THAN HALF the effort. Only lifts or holds trunk or limbs and provides more than half the effort. 0-Ixlbexpxw-fjuhqb does ALL the effort. Patient does none of the effort to complete the activity. Or, the assistance of 2 or more helpers is required for the patient to complete the activity. If activity was not attempted, code reason: 7-Patient Refused. 9-Not Applicable-not attempted and the patient did not perform the activity before the current illness, exacerbation or injury. 10-Not Attempted due to Environmental Limitations-(lack of equipment, weather restraints, etc.). 88-Not Attempted due to Medical Conditions or Safety Concerns. Roll Left to Right (QC): 3 Sit to Lying (QC): 3 Sit to Stand (QC): 3 Chair/Tig-va-Bagrw Xfer(QC): 3 Car Transfer (QC): 3 Gait Training Does the Patient Walk?: Yes Distance: 250' Walk 10 feet (QC): 4 Walk 50 ft with 2 Turns(QC): 4 Walk 150 ft (QC): 4 Walking 10ft/uneven surface-QC: 3 Gait Persons Needed: 1 Gait Assistive Device: FWW Wheelchair Training Does the Pt Use a Wheelchair?: Yes Wheel 50 ft with 2 turns (QC): 3 Wheel 150 ft (QC): 3 Type of Wheelchair: Manual Stair Training #of Steps: 1 1 Step (curb) (QC): 3 4 Steps (QC): 88 12 Steps (QC): 88 Balance Picking up an Object (QC): 4 ADL-Treatment Eating (QC): 5 (setup) Oral Hygiene (QC): 2 Bathing Location: L Arm, R Arm, L Upper Leg, R Upper Leg, L Lower Leg (including foot), R Lower Leg (including foot), Chest, Abdomen, Buttocks, Perineal Area Shower/Bathe Self (QC): 3 Upper Body Dressing (QC): 2 Lower Body Dressing (QC): 2 On/Off Footwear (QC): 3 Toileting Hygiene (QC): 1 (colostomy, urostomy bags) Toilet Transfer (QC): 1 (colostomy and urostomy) Assessment/Plan Assessment and Plan Assess & Plan/Chief Complaint Assessment: 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 Acute kidney injury Kidney stones Paroxysmal atrial fibrillation Hypertension GERD Colon obstruction Encephalopathy Homonymous hemianopia s/p hypovolemic shock Recent NSTEMI Skin cancer Past surgical history includes appendectomy, vasectomy, cataract removal, cystoscopy, bladder tumor excision, glaucoma surgery, laser eye surgery, cystectomy/prastectomy, kidney stone surgery, cystourethroscopy, nephrostomy, colostomy Bilateral pleural effusions with possible superimposed pneumonia on CT scan covered with cefepime on 07/26/2021 Plan: General surgery consult Cardiology consult Rehab protocol Supportive care 07/21/2021: Supportive care Advance diet Family at bedside Continue cognitive improvement management 07/22/2021: Supportive care Appreciate Dr. Scott plan 07/23/2021: Appreciate Dr. Scott Supportive care 07/24/21: Hospice at [place] Focus on ADL's with OT in order to DC home 07/25/2021: Supportive care Dr. Scott will check at surgeon regarding no output on colostomy 07/26/2021: CT scan reviewed Dr. Scott spoke with Dr. Cao at I appreciate his help Cefepime added for superimposed pneumonia with effusions 07/27/2021: Hospice to be set up Antibiotic for presumed pneumonia (1) Bladder cancer (2) Colostomy in place (3) CVA (cerebral vascular accident) MANPREET COLVIN DO Jul 27, 2021 05:59
[2021-07-27 06:00] LABS: CREATININE SERUM 1.58 MG/DL (0.60-1.30)
[2021-07-27] MEDS: MULTIVIT W/MINERALS TAB (THERAGRAN M) PO SCH (06:17)
--- NOTE | 2021-07-27 06:39 | Progress Note - Surgery ---
DENISHA MARQUES 07/27/21 0639: Subjective Date Seen by a Provider: Jul 27, 2021 Time Seen by a Provider: 06:15 Subjective/Events-last exam Pt reports nausea and abdominal pain from yesterday has improved. Loop colostomy has a bit of gas and mucus in the bag, but no blood. Colostomy color is consistent with yesterday, pink with some clotting. No stool output. Pt denies fever, chills, CP, N/V. WBC's continue to increase (19.8 today). Review of Systems General: No Chills; Fatigue HEENT: No Head Aches; Visual Changes (blurry vision since stroke) Pulmonary: No Dyspnea, No Cough Cardiovascular: No: Chest Pain, Palpitations Gastrointestinal: No: Nausea, Vomiting, Abdominal Pain Genitourinary: No Dysuria, No Frequency Musculoskeletal: No: neck pain, leg pain Neurological: Weakness; No: Change in speech Focused Exam Lactate Level 07/26/21 16:34: Lactic Acid Level 1.31 Objective Exam Vital Signs Date Time Temp Pulse Resp B/P (MAP) Pulse Ox O2 Delivery O2 Flow Rate FiO2 07/26/21 21:00 93 Room Air 07/26/21 20:00 37.0 74 20 136/78 (97) 93 Room Air 07/26/21 09:00 Room Air 07/26/21 07:48 36.8 77 16 132/83 (99) 93 Room Air I & O 07/27/21 07:00 Intake Total 390 ml Output Total 1025 ml Balance -635 ml Capillary Refill : General Appearance: No Apparent Distress, Chronically ill, Thin HEENT: PERRL/EOMI Neck: Normal Inspection, Supple Respiratory: Normal Breath Sounds, No Accessory Muscle Use, No Respiratory Distress Cardiovascular: Regular Rate, Rhythm, No Murmur, Normal Peripheral Pulses Peripheral Pulses: 3+ Dorsalis Pedis (R), 3+ Left Dors-Pedis (L), 3+ Radial Pulses (R), 3+ Radial Pulses (L) Gastrointestinal: other ( loop colostomy with minimal edema and blood clot present appears viable, no blood, urostomy right lower quadrant) Extremity: Normal Inspection, No Pedal Edema Neurologic/Psychiatric: Alert, Depressed Affect Skin: Warm/Dry, Other (bruise on L torso (from prior to admission)) Lymphatic: No Adenopathy Results Lab Laboratory Tests 07/26/21 16:34: Lactic Acid Level 1.31, Procalcitonin 0.24H 07/27/21 05:25: White Blood Count 19.8H, Red Blood Count 4.46, Hemoglobin 13.4, Hematocrit 42, Mean Corpuscular Volume 94, Mean Corpuscular Hemoglobin 30, Mean Corpuscular Hemoglobin Concent 32, Red Cell Distribution Width 15.9H, Platelet Count 84L, Mean Platelet Volume 11.8, Immature Granulocyte % (Auto) 1, Neutrophils (%) (Auto) 90H, Lymphocytes (%) (Auto) 2L, Monocytes (%) (Auto) 6, Eosinophils (%) (Auto) 0, Basophils (%) (Auto) 0, Neutrophils # (Auto) 17.8H, Lymphocytes # (Auto) 0.5L, Monocytes # (Auto) 1.2H, Eosinophils # (Auto) 0.1, Basophils # (Auto) 0.1, Immature Granulocyte # (Auto) 0.2H, Percent Immature Platelet Fraction 6.1, Sodium Level 137, Potassium Level 4.4, Chloride Level 106, Carbon Dioxide Level 18L, Anion Gap 13, Blood Urea Nitrogen 43H, Creatinine 1.58H, Estimat Glomerular Filtration Rate 46, BUN/Creatinine Ratio 27, Glucose Level 119H, Calcium Level 8.2L, Corrected Calcium 8.8, Total Bilirubin 1.0, Aspartate Amino Transf (AST/SGOT) 34, Alanine Aminotransferase (ALT/SGPT) 15, Alkaline Phosphatase 81, Total Protein 6.1L, Albumin 3.2 Assessment/Plan Assessment/Plan Assessment/Plan GI bleed upper versus lower GERD with recent history of coffee-ground emesis Gastritis Leukocytosis Decreased appetite Metastatic bladder carcinoma 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 Diffiucult to tell where. Not having much oral intake. Having flatus from colostomy,and some slight mucus. Family at bedside. Objective Exam General Appearance: Chronically ill, Cachetic, Thin HEENT: PERRL/EOMI, Normal ENT Inspection Neck: Normal Inspection Respiratory: Chest Non Tender, No Accessory Muscle Use, No Respiratory Distress Cardiovascular: Regular Rate, Rhythm, No JVD Gastrointestinal: soft, other ( loop colostomy with minimal edema and blood clot present appears viable gas and slihgt mucus in bag, no blood, urostomy right lower quadrant) Neurologic/Psychiatric: Alert, Depressed Affect Skin: Warm/Dry, Other (bruise on L torso (from prior to admission)) Lymphatic: No Adenopathy Assessment/Plan Assessment/Plan Assessment/Plan GI bleed upper versus lower GERD with recent history of coffee-ground emesis Gastritis Leukocytosis Decreased appetite Metastatic bladder carcinoma 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 Grove from yesterday and no further surgical options from his standpoint. Feels more palliative care. I had long discussion with patient and son about this and they are in agreement with discussing with palliative care to get information. Continue palliative care discussion with family Would continue with bowel regimen. Will sign off, call if needed. Supervisory-Addendum Brief Verification & Attestation Participated in pt care: history, MDM, physical Personally performed: exam, history, MDM, supervision of care Care discussed with: Medical Student Procedures: n/a Results interpretation: Verified all documentation Verification and Attestation of Medical Student E/M Service A medical student performed and documented this service in my presence. I reviewed and verified all information documented by the medical student and made modifications to such information, when appropriate. I personally performed the physical exam and medical decision making. Sarah Scott, Jul 27, 2021,21:19 DENISHA MARQUES Jul 27, 2021 06:39 SARAH SCOTT DO Jul 27, 2021 21:20
[2021-07-27 07:25] VITALS: BP 115/80
[2021-07-27] MEDS: SENNA W/DOCUSATE (SENOKOT S) TABLET PO SCH ×2 (07:32→21:28)
[2021-07-27] MEDS: ATENOLOL 50 MG (TENORMIN) TAB PO SCH (07:32)
[2021-07-27] MEDS: DOCUSATE SODIUM 100 MG (COLACE) CAP PO SCH ×2 (07:32→21:28)
[2021-07-27] MEDS: OMEGA 3 (FISH OIL) 1000 MG CAP PO SCH (07:32)
[2021-07-27] MEDS: PANTOPRAZOLE 40 MG (PROTONIX) TAB PO SCH ×2 (07:32→20:26)
[2021-07-27] MEDS: FAMOTIDINE 20 MG (PEPCID) TABLET PO SCH (07:32)
[2021-07-27] MEDS: polyethylene glycoL POWDER 17 GM (MIRALAX) PACK PO SCH ×2 (07:33→20:35)
[2021-07-27] MEDS: BRIMONIDINE 0.2% (ALPHAGAN) OPHTH SOLN 5 ML BTL OD SCH ×2 (07:39→20:34)
[2021-07-27] MEDS: prednisoLONE 1% OPTH (PRED FORTE) 5 ML BTL OD SCH ×4 (07:50→20:33)
[2021-07-27] MEDS: KETOROLAC 0.5% OD SCH ×4 (08:01→20:34)
--- NOTE | 2021-07-27 08:34 | Physical Therapy Daily Note ---
PT Daily Note-Current Subjective Patient in shower pre tx, already working with OT, has no complaints of pain. Will be co-treating with OT due to poor patient mobility, strength, endurance, severe debility, coordinate UE and LE with activity, safety and reduce risk of falls. Appearance Patient in bed post tx with nurse call, phone, tray, all needs met. Mental Status Patient Orientation: Person, Mumbles Attachments: Colostomy/Ileostomy Transfers SCALE: Activities may be completed with or without assistive devices. 8-Tmgahothut-exfgjma completes the activity by him/herself with no assistance from a helper. 5-Set-up or Clean-up Assistance-helper sets up or cleans up; patient completes activity. [place] assists only prior to or following the activity. 4-Supervision or Touching Assistance-helper provides verbal cues and/or touching/steadying and/or contact guard assistance as patient completes activity. Assistance may be provided throughout the activity or intermittently. 3-Partial/Moderate Assistance-helper does LESS THAN HALF the effort. [place] lifts, holds or supports trunk or limbs, but provides less than half the effort. 2-Substantial/Maximal Assistance-helper does MORE THAN HALF the effort. [place] lifts or holds trunk or limbs and provides more than half the effort. 8-Znhqoimxa-dfhzso does ALL the effort. Patient does none of the effort to complete the activity. Or, the assistance of 2 or more helpers is required for the patient to complete the activity. If activity was not attempted, code reason: 7-Patient Refused. 9-Not Applicable-not attempted and the patient did not perform the activity before the current illness, exacerbation or injury. 10-Not Attempted due to Environmental Limitations-(lack of equipment, weather restraints, etc.). 88-Not Attempted due to Medical Conditions or Safety Concerns. Roll Left & Right (QC): 3 Sit to Lying (QC): 3 (mod assist) Sit to Stand (QC): 3 Chair/Few-df-Rangm Xfer(QC): 3 Patient dresses partly in the shower, transfers to WC, taken back into his room, stands a couple of times to get underwear and pants up completely, gets socks on, transfers to bed and lays down. Weight Bearing Full Weight Bearing Full Weight Bearing Treatments PT performed transfers, standing for dressing, bed mobility, OT finished shower, dressing, UE positioning and safety during activity. Assessment Current Status: Regressing Patient gives not even minimal effort. He doesn't open his eyes during tx unless asked and then he only will open them for a few seconds. He will not even try to look and see what he is doing. Patient will only do an activity for a few seconds before sitting again. He says he is tired but therapy is at the lower possible level. Patient seems to have given up. PT Short Term Goals Short Term Goals Time Frame: Jul 27, 2021 Roll Left & Right: 6 Sit to lyin Lying to sitting on side of be: 6 Sit to stand: 4 (SBA) Chair/don-ar-qufph transfer: 4 (CGA) Walk 10 feet: 4 (CGA) Walk 50 feet with two turns: 4 (CA) Walk 150 feet: 4 (CGA) PT Long-Term Goals Roller Skate Assembler Goals PT Long-Term Goals Time Frame: Aug 10, 2021 Roll Left & Right (QC): 6 Sit to Lying (QC): 6 Lying-Sitting on Side/Bed(QC): 6 Sit to Stand (QC): 5 Chair/Mtu-tj-Obqwm Xfer(QC): 4 (SBA) Toilet Transfer (QC): 4 (SBA) Car Transfer (QC): 4 (SBA) Does the Patient Walk: Yes Walk 10 feet (QC): 4 (SBA) Walk 50ft with 2 Turns (QC): 4 (SBA) Walk 150 ft (QC): 4 (SBA) Walking 10ft on Uneven Surface: 4 (SBA) 1 Step (curb) (QC): 4 (SBA) 4 Steps (QC): 4 (SBA) 12 Steps (QC): 88 Picking up an Object (QC): 4 (SBA) Wheel 50 feet with 2 turns (QC: 9 Wheel 150 feet: 9 PT Plan Problem List Problem List: Activity Tolerance, Functional Strength, Safety, Balance, Gait, Transfer, Bed Mobility, ROM Treatment/Plan Treatment Plan: Continue Plan of Care Treatment Plan: Bed Mobility, Education, Functional Activity Stella, Functional Strength, Group Therapy, Gait, Safety, Therapeutic Exercise, Transfers Treatment Duration: Aug 10, 2021 Frequency: At least 5 of 7 days/Wk (IRF) Estimated Hrs Per Day: 1.5 hours per day Patient and/or Family Agrees t: Yes Safety Risks/Education Patient Education: Transfer Techniques, Correct Positioning, Safety Issues Teaching Recipient: Patient Teaching Methods: Demonstration, Discussion Response to Teaching: Reinforcement Needed Time/GCodes Time In: 799 Time Out: 829 Total Billed Treatment Time: 30 Total Billed Treatment 1 visit FA 30' DEVAUGHN ROJAS PT Jul 27, 2021 08:34
--- NOTE | 2021-07-27 08:40 | Occupational Ther Daily Note ---
OT Current Status-Daily Note Subjective Pt denies pain, agreeable to shower. Co-treat with PT for part of session (0800- 0830) due to need of 2 skilled clinicians to progress mobility and adls. Appearance Pt returned to supine in bed, all needs within reach, RN notified. Mental Status/Objective Patient Orientation: Person, Confused Attachments: Colostomy/Ileostomy, IV ADL-Treatment Therapy Code Descriptions/Definitions Functional [place] Measure: 0=Not Assessed/NA 4=Minimal Assistance 1=Total Assistance 5=Supervision or Setup 2=Maximal Assistance 6=Modified [place] 3=Moderate Assistance 7=Complete IndependenceSCALE: Activities may be completed with or without assistive devices. 2-Ktpyaymsha-lrjbnun completes the activity by him/herself with no assistance from a helper. 5-Set-up or Clean-up Assistance-helper sets up or cleans up; patient completes activity. [place] assists only prior to or following the activity. 4-Supervision or Touching Assistance-helper provides verbal cues and/or touching/steadying and/or contact guard assistance as patient completes activity. Assistance may be provided throughout the activity or intermittently. 3-Partial/Moderate Assistance-helper does LESS THAN HALF the effort. [place] lifts, holds or supports trunk or limbs, but provides less than half the effort. 2-Substantial/Maximal Assistance-helper does MORE THAN HALF the effort. [place] lifts or holds trunk or limbs and provides more than half the effort. 8-[place]-mvetpm does ALL the effort. Patient does none of the effort to complete the activity. Or, the assistance of 2 or more helpers is required for the patient to complete the activity. If activity was not attempted, code reason: 7-Patient Refused. 9-Not Applicable-not attempted and the patient did not perform the activity before the current illness, exacerbation or injury. 10-Not Attempted due to Environmental Limitations-(lack of equipment, weather restraints, etc.). 88-Not Attempted due to Medical Conditions or Safety Concerns. Shower/Bathe Self (QC): 2 Upper Body Dressing (QC): 1 Lower Body Dressing (QC): 2 On/Off Footwear: 1 Toileting Hygiene (QC): 1 At OT arrival, pt supine in bed. Denies pain and agreeable to shower. Max cues, mod A and significant amount of time to initiate bed mobility. Once sitting upright, pt often attempting to lay back down. Assist and cues to remain upright. OT sitting to patients right to keep him from laying back down. He requires simplification of cues and a verbal 1,2,3 step count in order to complete all standing transfers this date. On count 3, pt able to stand with min A. While ambulating to bathroom, pt attempts x3 to sit. Cues and mod a to maintain standing position. While pivoting into shower, pt pushes walker too far forward which causes it to tip over, anterior LOB with max a to recover and maintain upright position. RN present during ambulation for safety. While in shower, pt requires HOHA to hold washcloth and initiate washing upper thighs. With verbal cues, he was able to wash under bilateral arms. All other body parts dependent. Pt often closes eyes during session and requires max cues to open and attend to task. Pt verbalizing feelings of wanting to when asked what the next sequence order is. Zero effort this date during dressing tasks. OT had to guide each limb into clothing and verbalize correct sequence order. During dressing tasks, the only task pt assists with is clothing management. Min a for balance and rest break needed in between pulling up boxers and pants. Significant decline from previous dates. Little motivation to participate in adls. Education OT Patient Education: Correct positioning, Disease process, Energy conservation, Modified ADL techniques, Progress toward Goal/Update tx plan, Purpose of tx/functional activities, Rehab process, Safety issues, Transfer te harman, W/C management Teaching Recipient: Patient Teaching Methods: Demonstration, Discussion Response to Teaching: Unable to Return Demonstration, Unable to Comprehend, Reinforcement Needed OT Short Term Goals Short Term Goals Time Frame: Aug 04, 2021 Toileting hygiene: 3 Shower/bathe self: 3 Lower body dressin OT Electronic Engraver Goals Electronic Engraver Goals Time Frame: Aug 20, 2021 Eating (QC): 5 Oral Hygiene (QC): 5 Toileting Hygiene (QC): 4 Shower/Bathe Self (QC): 4 Upper Body Dressing (QC): 5 Lower Body Dressing (QC): 4 On/Off Footwear (QC): 4 Additional Goals: 1-Demonstrate ADL Tasks, 2-Verbalize Understanding, 3-Impr oveStrength/Stella 1=Demonstrate adherence to instructed precautions during ADL tasks. 2=Patient will verbalize/demonstrate understanding of assistive devices/modifications for ADL. 3=Patient will improve strength/tolerance for activity to enable patient to perform ADL's. OT Education/Plan Problem List/Assessment Assessment: Decreased Activ Tolerance, Decreased Safety Aware, Decreased UE Strength, Impaired Bed Mobility, Impaired Cognition, Impaired Funct Balance, Impaired I ADL's, Impaired Self-Care Skills, Visual-Perceptual Deficit Discharge Recommendations Plan/Recommendations: Continue POC Target Placement hospice vs palliative care Treatment Plan/Plan of Care Treatment,Training & Education: Yes Patient would benefit from OT for education, treatment and training to promote independence in ADL's, mobility, safety and/or upper extremity function for ADL's. Plan of Care: ADL Retraining, Functional Mobility, Group Exercise/Act as Ind, UE Funct Exercise/Act Treatment Duration: Aug 20, 2021 Frequency: At least 5 of 7 days/Wk (IRF) Estimated Hrs Per Day: 1.5 hours per day Agreement: Yes Rehab Potential: Guarded Time/GCodes Start Time: 07:30 Stop Time: 08:30 Total Time Billed (hr/min): 60 Billed Treatment Time 1 visit ADL x4 Tracy Robles OT Jul 27, 2021 08:40
[2021-07-27] MEDS: DORZOLAMIDE/TIMOLOL (COSOPT) 2-0.68% 10 ML BTL OD SCH ×2 (08:42→20:34)
--- NOTE | 2021-07-27 10:38 | Speech Therapy Daily Note ---
Speech Daily Progress Note Subjective Date Seen by Provider: Jul 27, 2021 Time Seen by Provider: 10:00 The patient was seated upright in bed, eyes closed upon entrance by the clinician. The patient does return to clinician's verbal greeting appropriately and agrees to participation in the cognitive linguistic treatment session. The patient's remains at bedside throughout the treatment. Objective - Orientation: The patient was not oriented to location, city, state, month, or year. Verbal descriptions and cues of the patient's environment were provided to aid in recall of his location. Regardless of maximum verbal cueing, the patient was unable to state his location. - Delayed Recall: Following orientation information, the patient was asked delayed recall of the information provided (immediate and an approximate five minute delay). The patient was unable to recall the orientation information immediately or following a five minute recall regardless of maximum clinician verbal cueing. - The patient consumed two straw drinks of thin liquid and one straw drink of Ensure clear. Overt s/s of suspected aspiration were demonstrated with any PO intake consumed. The patient politely refused additional PO intake regardless of encouragement. The patient does grimace following the swallow. The patient de nied odynophagia but does report, "indigestion." The patient's RN was notified and she agreed to check the patient's chart for available medication. The patient requires maximum verbal encouragement and consistent verbal prompting for participation and appropriate alertness levels throughout the treatment session. Assessment Assessment Current Status: Regressing Treatment Plan Continue Plan of Care Speech Short Term Goals Short Term Goals Short Term Goals 1. The patient will demonstrate increased attention to task, displaying appro priate attention for three minutes with moderate clinician verbal cueing. 2. The patient will display compliance with safe swallowing practices with 90% accuracy, independently. Speech Heating And Ventilating Tender Goals Skilled Nursing Goals 1. The patient will demonstrate improved functional cognition for a safe return to the least restrictive environment. 2. The patient will tolerate the least restrictive diet without s/s of suspected aspiration with 90% accuracy, independently. Speech-Plan Treatment Plan Speech Therapy Treatment Plan: Continue Plan of Care Treatment Duration: Aug 04, 2021 Frequency: 4 times per week (Four to five times per week. ) Estimated Hrs Per Day: .5 hour per day Rehab Potential: Poor Safety Risks/Education Teaching Recipient: Patient, Family Teaching Methods: Discussion Response to Teaching: Reinforcement Needed Education Topics Provided: Plan of Care Time Speech Therapy Time In: 10:00 Speech Therapy Time Out: 10:30 Total Billed Time: 30 Billed Treatment Time 1, MADELINE, NEIL [place] Jul 27, 2021 10:37
[2021-07-27] MEDS: CATHETER FLUSH 10 ML SYR IV PRN (10:55)
--- NOTE | 2021-07-27 11:00 | Occupational Ther Daily Note ---
OT Current Status-Daily Note Subjective Pt is very tired, requires increased time and motivation to participate in very little activity. Co-treat with PT due to need of 2 skilled clinicians to progress mobility and adls. Appearance Returned to supine, all needs within reach, in room. ADL-Treatment Therapy Code Descriptions/Definitions Functional [place] Measure: 0=Not Assessed/NA 4=Minimal Assistance 1=Total Assistance 5=Supervision or Setup 2=Maximal Assistance 6=Modified [place] 3=Moderate Assistance 7=Complete IndependenceSCALE: Activities may be completed with or without assistive devices. 8-Lytnflcnla-scgstys completes the activity by him/herself with no assistance from a helper. 5-Set-up or Clean-up Assistance-helper sets up or cleans up; patient completes activity. [place] assists only prior to or following the activity. 4-Supervision or Touching Assistance-helper provides verbal cues and/or touching/steadying and/or contact guard assistance as patient completes activity. Assistance may be provided throughout the activity or intermittently. 3-Partial/Moderate Assistance-helper does LESS THAN HALF the effort. [place] lifts, holds or supports trunk or limbs, but provides less than half the effort. 2-Substantial/Maximal Assistance-helper does MORE THAN HALF the effort. [place] lifts or holds trunk or limbs and provides more than half the effort. 4-Blkddsiym-lhbzms does ALL the effort. Patient does none of the effort to complete the activity. Or, the assistance of 2 or more helpers is required for the patient to complete the activity. If activity was not attempted, code reason: 7-Patient Refused. 9-Not Applicable-not attempted and the patient did not perform the activity before the current illness, exacerbation or injury. 10-Not Attempted due to Environmental Limitations-(lack of equipment, weather restraints, etc.). 88-Not Attempted due to Medical Conditions or Safety Concerns. Other Treatment Pt continues to require significant time and cues for initiation of all transfers. Verbal counting to 3 seems to help. Pt participated in standing activity in parallel bars with goal to improve standing tolerance and balance needed for adls and functional transfers. Initially, pt would stood and then impulsively sit back down. OT placed red tape on floor with visual end goal (~2- 3 feet). Pt needed max cues to open eyes and look to see Bright red tape. Pt ambulated ~3 feet x2 with min-mod a. When he reaches red tape, he will immedia tely sit down. No effort to surpass goal. Education OT Patient Education: Correct positioning, Progress toward Goal/Update tx plan, Purpose of tx/functional activities, Safety issues, Transfer techniques, W/C management Teaching Recipient: Patient, Family Teaching Methods: Discussion Response to Teaching: Verbalize Understanding, Reinforcement Needed OT Short Term Goals Short Term Goals Time Frame: Aug 04, 2021 Toileting hygiene: 3 Shower/bathe self: 3 Lower body dressin OT Prison Goals Prison Goals Time Frame: Aug 20, 2021 Eating (QC): 5 Oral Hygiene (QC): 5 Toileting Hygiene (QC): 4 Shower/Bathe Self (QC): 4 Upper Body Dressing (QC): 5 Lower Body Dressing (QC): 4 On/Off Footwear (QC): 4 Additional Goals: 1-Demonstrate ADL Tasks, 2-Verbalize Understanding, 3- ImproveStrength/Stella 1=Demonstrate adherence to instructed precautions during ADL tasks. 2=Patient will verbalize/demonstrate understanding of assistive devices/modifications for ADL. 3=Patient will improve strength/tolerance for activity to enable patient to perform ADL's. OT Education/Plan Problem List/Assessment Assessment: Decreased Activ Tolerance, Decreased Safety Aware, Decreased UE Strength, Impaired Bed Mobility, Impaired Cognition, Impaired Funct Balance, Impaired I ADL's, Impaired Self-Care Skills, Visual-Perceptual Deficit Discharge Recommendations Plan/Recommendations: Continue POC Treatment Plan/Plan of Care Treatment,Training & Education: Yes Patient would benefit from OT for education, treatment and training to promote independence in ADL's, mobility, safety and/or upper extremity function for ADL's. Plan of Care: ADL Retraining, Functional Mobility, Group Exercise/Act as Ind, UE Funct Exercise/Act Treatment Duration: Aug 20, 2021 Frequency: At least 5 of 7 days/Wk (IRF) Estimated Hrs Per Day: 1.5 hours per day Agreement: Yes Rehab Potential: Poor Time/GCodes Start Time: 10:30 Stop Time: 11:00 Total Time Billed (hr/min): 30 Billed Treatment Time 1 visit FA Tracy Ghosh OT Jul 27, 2021 11:00
--- NOTE | 2021-07-27 11:00 | Physical Therapy Daily Note ---
PT Daily Note-Current Subjective Patient in bed pre tx, agrees to PT, has no complaints of pain. Will be co- treating with OT due to poor patient mobility, strength, endurance, severe debility, coordinate UE and LE during activity, safety and reduce risk of falls. Appearance Patient in bed post tx with nurse call, phone, tray, all needs met. Mental Status Patient Orientation: Person Transfers SCALE: Activities may be completed with or without assistive devices. 5-Gzjpuvigxm-pxhgnwj completes the activity by him/herself with no assistance from a helper. 5-Set-up or Clean-up Assistance-helper sets up or cleans up; patient completes activity. [place] assists only prior to or following the activity. 4-Supervision or Touching Assistance-helper provides verbal cues and/or touching/steadying and/or contact guard assistance as patient completes activity. Assistance may be provided throughout the activity or intermittently. 3-Partial/Moderate Assistance-helper does LESS THAN HALF the effort. [place] lifts, holds or supports trunk or limbs, but provides less than half the effort. 2-Substantial/Maximal Assistance-helper does MORE THAN HALF the effort. [place] lifts or holds trunk or limbs and provides more than half the effort. 1-Nxucmcxhu-aorbly does ALL the effort. Patient does none of the effort to complete the activity. Or, the assistance of 2 or more helpers is required for the patient to complete the activity. If activity was not attempted, code reason: 7-Patient Refused. 9-Not Applicable-not attempted and the patient did not perform the activity before the current illness, exacerbation or injury. 10-Not Attempted due to Environmental Limitations-(lack of equipment, weather restraints, etc.). 88-Not Attempted due to Medical Conditions or Safety Concerns. Roll Left & Right (QC): 3 Sit to Lying (QC): 3 Lying to Sitting/Side of Bed(Q: 3 Sit to Stand (QC): 3 Chair/Hbr-bo-Awldq Xfer(QC): 3 Weight Bearing Full Weight Bearing Full Weight Bearing Gait Training Distance: 1', 3'x2 Gait Assistive Device: Parallel Bars min assist Treatments PT performed bed mobility and transfers, ambulation, OT performed UE positioning and safety during activity, safety cues. Assessment Current Status: Regressing Patient was similar to this morning. Patient would not open eyes unless asked to and then for just a few seconds. He has poor motivation, minimal participation. PT Short Term Goals Short Term Goals Time Frame: Jul 27, 2021 Roll Left & Right: 6 Sit to lyin Lying to sitting on side of be: 6 Sit to stand: 4 (SBA) Chair/kef-kx-brxhz transfer: 4 (CGA) Walk 10 feet: 4 (CGA) Walk 50 feet with two turns: 4 (CA) Walk 150 feet: 4 (CGA) PT Senior Care Goals Tester Sound Goals PT Senior Care Goals Time Frame: Aug 10, 2021 Roll Left & Right (QC): 6 Sit to Lying (QC): 6 Lying-Sitting on Side/Bed(QC): 6 Sit to Stand (QC): 5 Chair/Bof-ku-Lsfyt Xfer(QC): 4 (SBA) Toilet Transfer (QC): 4 (SBA) Car Transfer (QC): 4 (SBA) Does the Patient Walk: Yes Walk 10 feet (QC): 4 (SBA) Walk 50ft with 2 Turns (QC): 4 (SBA) Walk 150 ft (QC): 4 (SBA) Walking 10ft on Uneven Surface: 4 (SBA) 1 Step (curb) (QC): 4 (SBA) 4 Steps (QC): 4 (SBA) 12 Steps (QC): 88 Picking up an Object (QC): 4 (SBA) Wheel 50 feet with 2 turns (QC: 9 Wheel 150 feet: 9 PT Plan Problem List Problem List: Activity Tolerance, Functional Strength, Safety, Balance, Gait, Transfer, Bed Mobility, ROM Treatment/Plan Treatment Plan: Continue Plan of Care Treatment Plan: Bed Mobility, Education, Functional Activity Stella, Functional Strength, Group Therapy, Gait, Safety, Therapeutic Exercise, Transfers Treatment Duration: Aug 10, 2021 Frequency: At least 5 of 7 days/Wk (IRF) Estimated Hrs Per Day: 1.5 hours per day Patient and/or Family Agrees t: Yes Safety Risks/Education Patient Education: Gait Training, Transfer Techniques, Correct Positioning, Safety Issues Teaching Recipient: Patient Teaching Methods: Demonstration, Discussion Response to Teaching: Reinforcement Needed Time/GCodes Time In: 1030 Time Out: 1100 Total Billed Treatment Time: 30 Total Billed Treatment 1 visit FA 30' co-treated for 30' DEVAUGHN ROJAS PT Jul 27, 2021 11:00
[2021-07-27] MEDS: CALCIUM CARBONATE 500 MG (TUMS) TAB.CHEW PO PRN (11:34)
[2021-07-27] MEDS: ONDANSETRON 4 MG/2 ML (SDV) Z0FRAN IVP PRN ×2 (11:34→18:39)
[2021-07-27] MEDS ORDERED: morphine (ROXINOL) 10 MG/0.5 ML oral conc 0.5 ML PO PRN (12:45)
[2021-07-27] MEDS ORDERED: morphine INJ 10 MG/ML 1ML (SYR OR VIAL) IVP PRN (12:45)
[2021-07-27] MEDS ORDERED: morphine INJ 10 MG/ML 1ML (SYR OR VIAL) ONE (12:51)
[2021-07-27] MEDS: morphine INJ 4 MG/ML 1 ML (VIAL/SYRINGE) IV PRN (18:56)
[2021-07-27 20:00] VITALS: BP 127/88
[2021-07-27] MEDS: ASPIRIN E.C. 81 MG (ECOTRIN) TAB PO SCH (20:26)
[2021-07-27] MEDS: LATANOPROST 0.005% (XALATAN) OPHTH SOLN 2.5 ML OD SCH (20:33)
[2021-07-27] MEDS: MELATONIN 3 MG TABLET PO SCH (21:28)
[2021-07-28] MEDS: morphine INJ 4 MG/ML 1 ML (VIAL/SYRINGE) IV PRN ×4 (00:32→18:15)
[2021-07-28] MEDS: CEFEPIME INJECTION 1,000 MG in NS (IVPB) 50 ML IV SCH ×3 (03:13→19:16)
[2021-07-28] MEDS: MULTIVIT W/MINERALS TAB (THERAGRAN M) PO SCH (06:28)
--- NOTE | 2021-07-28 06:49 | PM&R Progress Note ---
Subjective HPI/CC On Admission Date Seen by Provider: Jul 28, 2021 Time Seen by Provider: 10:00 Subjective/Events-last exam 07/28/21: Patient declined Comfort care recommended DNR possibly obtained after multiple conversations Moving to floor for comfort care 07/27/2021: Pt will go home on hospice No longer participating No stool in the colostomy Appreciate Dr. Scott consult 07/26/2021: Pt doing about the same CT scan done as Dr. Scott requested Abdominal series [place] [id number] I spoke with head of PT and he will focus on functional improvements Pleural effusions noted so will cover for pneumonia superimposed within the effusion No evidence of sepsis on work-up 07/25/2021: Patient the same Eating 4 bites per meal Son thinks he is doing great since he is eating that much which patient appears to be getting more cachectic and weak No output in colostomy except for blood We will have Dr. Scott reach out to tomorrow My recommendation is discharge home on hospice 07/24/21: Patient about the same Won't eat much Weakness noted Blood in colostomy minimal output but without much food consumption the amount is very low anyway Had a very nova discussion with and son about the realistic plan for patient and Hospice is definitely the plan since had her parents on that program at end of their lives I will speak to Maurice head of therapy and have him focus on all efforts of OT for them to be able to bring him home and start Hospice at [facility] 07/23/2021: Patient doing about the same and son at the bedside We will discontinue Bentyl at 's request Patient appears to have a poor prognosis and unsure if they are fully aware of that The goal will be to see what can be done to discharge him to go to appointment on Monday at so they can talk to him about prognosis 07/22/2021: Patient doing well at bedside called talk to nurse surgeon bleeding from his colostomy and Dr. Scott counseled her on the plan Checked meds and labs Patient appears to be very end stage No pain is reported 07/21/2021: Pt doing pretty well and son are at the bedside O2 is off now Speech therapy will do a swallow eval and allow him to eat pizza that he is requesting Ostomy is flowing well Pt is low vision Left flank has a bruise Prognosis is very guarded per [facility] Labs reviewed Dr. Scott will be consulted Focused Exam Lactate Level 07/26/21 16:34: Lactic Acid Level 1.31 Objective Exam Vital Signs Vital Signs Date Time Temp Pulse Resp B/P (MAP) Pulse Ox O2 Delivery O2 Flow Rate FiO2 07/28/21 18:44 Nasal Cannula 2.00 07/28/21 15:14 36.7 98 14 115/75 (88) 93 Capillary Refill : General Appearance: No Apparent Distress, WD/WN, Chronically ill, Thin, Other HEENT: PERRL/EOMI, Normal ENT Inspection, Pharynx Normal Neck: Full Range of Motion, Normal Inspection, Non Tender, Supple, Carotid Bruit Respiratory: Chest Non Tender, Lungs Clear, Normal Breath Sounds, No Accessory Muscle Use, No Respiratory Distress Cardiovascular: Regular Rate, Rhythm, No Edema, No Gallop, No JVD, No Murmur, Normal Peripheral Pulses Gastrointestinal: Normal Bowel Sounds, No Organomegaly, No Pulsatile Mass, Non Tender, Soft Back: Normal Inspection, No CVA Tenderness, No Vertebral Tenderness Extremity: Normal Capillary Refill, Normal Inspection, Normal Range of Motion, Non Tender, No Calf Tenderness, No Pedal Edema Neurologic/Psychiatric: No Motor/Sensory Deficits, outside maintenance worker II-XII Norm as Tested, Abnormal Gait, Depressed Affect, Disoriented, Motor Weakness Skin: Normal Color, Warm/Dry Lymphatic: No Adenopathy Results/Procedures Lab Patient resulted labs reviewed. FIM Transfers Therapy Code Descriptions/Definitions Functional [place] Measure: 0=Not Assessed/NA 4=Minimal Assistance 1=Total Assistance 5=Supervision or Setup 2=Maximal Assistance 6=Modified [place] 3=Moderate Assistance 7=Complete IndependenceSCALE: Activities may be completed with or without assistive devices. 3-Gjtsjhmnjg-mpctolg completes the activity by him/herself with no assistance from a helper. 5-Set-up or Clean-up Assistance-helper sets up or cleans up; patient completes activity. [place] assists only prior to or following the activity. 4-Supervision or Touching Assistance-helper provides verbal cues and/or touching/steadying and/or contact guard assistance as patient completes activity. Assistance may be provided throughout the activity or intermittently. 3-Partial/Moderate Assistance-helper does LESS THAN HALF the effort. [place] lifts, holds or supports trunk or limbs, but provides less than half the effort. 2-Substantial/Maximal Assistance-helper does MORE THAN HALF the effort. [place] lifts or holds trunk or limbs and provides more than half the effort. 5-Odzljxgpo-mjffgu does ALL the effort. Patient does none of the effort to complete the activity. Or, the assistance of 2 or more helpers is required for the patient to complete the activity. If activity was not attempted, code reason: 7-Patient Refused. 9-Not Applicable-not attempted and the patient did not perform the activity before the current illness, exacerbation or injury. 10-Not Attempted due to Environmental Limitations-(lack of equipment, weather restraints, etc.). 88-Not Attempted due to Medical Conditions or Safety Concerns. Roll Left to Right (QC): 3 Sit to Lying (QC): 3 Sit to Stand (QC): 3 Chair/Qqm-dw-Bhums Xfer(QC): 3 Car Transfer (QC): 3 Gait Training Does the Patient Walk?: Yes Distance: 1', 3'x2 Walk 10 feet (QC): 4 Walk 50 ft with 2 Turns(QC): 4 Walk 150 ft (QC): 4 Walking 10ft/uneven surface-QC: 3 Gait Persons Needed: 1 Gait Assistive Device: Parallel Bars Wheelchair Training Does the Pt Use a Wheelchair?: Yes Wheel 50 ft with 2 turns (QC): 3 Wheel 150 ft (QC): 3 Type of Wheelchair: Manual Stair Training #of Steps: 1 1 Step (curb) (QC): 3 4 Steps (QC): 88 12 Steps (QC): 88 Balance Picking up an Object (QC): 4 ADL-Treatment Eating (QC): 5 (setup) Oral Hygiene (QC): 2 Bathing Location: L Arm, R Arm, L Upper Leg, R Upper Leg, L Lower Leg (including foot), R Lower Leg (including foot), Chest, Abdomen, Buttocks, Perineal Area Shower/Bathe Self (QC): 2 Upper Body Dressing (QC): 1 Lower Body Dressing (QC): 2 On/Off Footwear (QC): 1 Toileting Hygiene (QC): 1 Toilet Transfer (QC): 1 (colostomy and urostomy) Assessment/Plan Assessment and Plan Assess & Plan/Chief Complaint Assessment: 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 Acute kidney injury Kidney stones Paroxysmal atrial fibrillation Hypertension GERD Colon obstruction Encephalopathy Homonymous hemianopia s/p hypovolemic shock Recent NSTEMI Skin cancer Past surgical history includes appendectomy, vasectomy, cataract removal, cystoscopy, bladder tumor excision, glaucoma surgery, laser eye surgery, cystectomy/prastectomy, kidney stone surgery, cystourethroscopy, nephrostomy, colostomy Bilateral pleural effusions with possible superimposed pneumonia on CT scan covered with cefepime on 07/26/2021 Plan: General surgery consult Cardiology consult Rehab protocol Supportive care 07/21/2021: Supportive care Advance diet Family at bedside Continue cognitive improvement management 07/22/2021: Supportive care Appreciate Dr. Scott plan 07/23/2021: Appreciate Dr. Scott Supportive care 07/24/21: Hospice at [place] Focus on ADL's with OT in order to DC home 07/25/2021: Supportive care Dr. Scott will check at surgeon regarding no output on colostomy 07/26/2021: CT scan reviewed Dr. Scott spoke with Dr. Cao at I appreciate his help Cefepime added for superimposed pneumonia with effusions 07/27/2021: Hospice to be set up Antibiotic for presumed pneumonia 07/28/2021: Moved to floor for comfort care (1) Bladder cancer (2) Colostomy in place (3) CVA (cerebral vascular accident) MANPREET COLVIN DO Jul 28, 2021 06:49
[2021-07-28 07:06] VITALS: BP 111/75
--- NOTE | 2021-07-28 08:21 | Occupational Ther Daily Note ---
OT Current Status-Daily Note Subjective Pt only responds with short 1-2 word answers. Appearance Pt left supine in bed, all needs within reach, RN notified. ADL-Treatment Therapy Code Descriptions/Definitions Functional [place] Measure: 0=Not Assessed/NA 4=Minimal Assistance 1=Total Assistance 5=Supervision or Setup 2=Maximal Assistance 6=Modified [place] 3=Moderate Assistance 7=Complete IndependenceSCALE: Activities may be completed with or without assistive devices. 1-Diakraidnk-yfwvsrq completes the activity by him/herself with no assistance from a helper. 5-Set-up or Clean-up Assistance-helper sets up or cleans up; patient completes activity. [place] assists only prior to or following the activity. 4-Supervision or Touching Assistance-helper provides verbal cues and/or touching/steadying and/or contact guard assistance as patient completes activity. Assistance may be provided throughout the activity or intermittently. 3-Partial/Moderate Assistance-helper does LESS THAN HALF the effort. [place] lifts, holds or supports trunk or limbs, but provides less than half the effort. 2-Substantial/Maximal Assistance-helper does MORE THAN HALF the effort. [place] lifts or holds trunk or limbs and provides more than half the effort. 1-Blirsgnnc-pcwrfj does ALL the effort. Patient does none of the effort to complete the activity. Or, the assistance of 2 or more helpers is required for the patient to complete the activity. If activity was not attempted, code reason: 7-Patient Refused. 9-Not Applicable-not attempted and the patient did not perform the activity before the current illness, exacerbation or injury. 10-Not Attempted due to Environmental Limitations-(lack of equipment, weather restraints, etc.). 88-Not Attempted due to Medical Conditions or Safety Concerns. Eating (QC): 1 Toileting Hygiene (QC): 1 Pt resting in bed at OT arrival. Pt looks very sick and continues to decline functionally each session. Agreeable to try and eat. HOB raised. Pt keeps eyes closed throughout entire session and does not open with cues. No effort to reach or manipulate utensils/cup in any way. Pt constantly shakes head from right to left throughout session. Cues to keep head still when eating. Pt only able to take ~5 small bites of oatmeal and 3 sips of ensure with significant amount of time. Consistent cues for sequencing each step including: opening mouth, swallowing, and sipping through straw. HOHA to wash mouth with washcloth. Dep endent to wash rest of face. Pt unable to tolerate full scheduled time. RN notified on change in status. Education OT Patient Education: Correct positioning, Purpose of tx/functional activities, Safety issues Teaching Recipient: Patient Teaching Methods: Discussion Response to Teaching: Unable to Return Demonstration, Unable to Comprehend OT Short Term Goals Short Term Goals Time Frame: Aug 04, 2021 Toileting hygiene: 3 Shower/bathe self: 3 Lower body dressin OT Longterm Goals Longterm Goals Time Frame: Aug 20, 2021 Eating (QC): 5 Oral Hygiene (QC): 5 Toileting Hygiene (QC): 4 Shower/Bathe Self (QC): 4 Upper Body Dressing (QC): 5 Lower Body Dressing (QC): 4 On/Off Footwear (QC): 4 Additional Goals: 1-Demonstrate ADL Tasks, 2-Verbalize Understanding, 3- ImproveStrength/Stella 1=Demonstrate adherence to instructed precautions during ADL tasks. 2=Patient will verbalize/demonstrate understanding of assistive devices/modifications for ADL. 3=Patient will improve strength/tolerance for activity to enable patient to perform ADL's. OT Education/Plan Problem List/Assessment Assessment: Decreased Activ Tolerance, Decreased Safety Aware, Decreased UE Strength, Impaired Bed Mobility, Impaired Cognition, Impaired Coordination, Impaired Funct Balance, Impaired I ADL's, Impaired Self-Care Skills, Visual- Perceptual Deficit Discharge Recommendations Plan/Recommendations: Continue POC Target Placement Home with hospice Treatment Plan/Plan of Care Treatment,Training & Education: Yes Patient would benefit from OT for education, treatment and training to promote independence in ADL's, mobility, safety and/or upper extremity function for ADL's. Plan of Care: ADL Retraining, Functional Mobility, Group Exercise/Act as Ind, UE Funct Exercise/Act Treatment Duration: Aug 20, 2021 Frequency: At least 5 of 7 days/Wk (IRF) Estimated Hrs Per Day: 1.5 hours per day Agreement: Yes Rehab Potential: Poor Time/GCodes Start Time: 07:35 Stop Time: 08:00 Total Time Billed (hr/min): 25 Billed Treatment Time 1 visit ADL x2 Tracy Robles OT Jul 28, 2021 08:21
[2021-07-28 08:31] VITALS: BP 107/70
[2021-07-28] MEDS: FAMOTIDINE 20 MG (PEPCID) TABLET PO SCH (08:31)
[2021-07-28] MEDS: DOCUSATE SODIUM 100 MG (COLACE) CAP PO SCH (08:40)
[2021-07-28] MEDS: OMEGA 3 (FISH OIL) 1000 MG CAP PO SCH (08:40)
[2021-07-28] MEDS: SENNA W/DOCUSATE (SENOKOT S) TABLET PO SCH (08:41)
[2021-07-28] MEDS: DORZOLAMIDE/TIMOLOL (COSOPT) 2-0.68% 10 ML BTL OD SCH (08:42)
[2021-07-28] MEDS: BRIMONIDINE 0.2% (ALPHAGAN) OPHTH SOLN 5 ML BTL OD SCH (08:43)
[2021-07-28] MEDS: prednisoLONE 1% OPTH (PRED FORTE) 5 ML BTL OD SCH ×3 (08:43→17:27)
[2021-07-28] MEDS: KETOROLAC 0.5% OD SCH ×3 (08:44→17:27)
[2021-07-28] MEDS: polyethylene glycoL POWDER 17 GM (MIRALAX) PACK PO SCH (08:45)
[2021-07-28] MEDS: ATENOLOL 50 MG (TENORMIN) TAB PO SCH (09:06)
[2021-07-28] MEDS: PANTOPRAZOLE 40 MG (PROTONIX) TAB PO SCH (09:06)
--- NOTE | 2021-07-28 10:04 | Physical Therapy Progress Note ---
Therapy Progress Note PREPRESS TECHNICIAN attempted to see pt for tx. Nursing had just repositioned to comfort. Pt's remained laying Supine, eyes closed and did not talk when PREPRESS TECHNICIAN asked questions. Pt has not been eating or drinking for staff. PREPRESS TECHNICIAN will check on pt again a little later this morning. 1, no tx rendered JALEEL CRANDALL PREPRESS TECHNICIAN Jul 28, 2021 10:04
--- NOTE | 2021-07-28 11:17 | Speech Therapy Daily Note ---
Speech Daily Progress Note Subjective Date Seen by Provider: Jul 28, 2021 Time Seen by Provider: 09:00 The patient was lying in bed, eyes closed upon entrance. The patient moves head away from the clinician following a verbal greeting from the clinician, however, verbalizations from the patient were not appreciated. The patient remains with eyes closed throughout the session regardless of continuous verbal encouragement from the clinician. Objective - Orientation: Orientation exercises were attempted by the clinician with maximum verbal prompting and encouragement. The patient did not respond to any orientation questions and continues to nod head away from the clinician's direction. Orientation information was provided to the patient by the clinician. - Dysphagia: The patient intermittently pursed lips and appeared thirsty. The clinician offered multiple beverages and oral care. The patient continued to refuse PO intake of any kind. Due to refusal, the clinician was unable to re- assess oropharyngeal swallowing safety. At this time, the patient's and son are meeting with hospice services. Social work is continually working towards an appropriate discharge plan. Assessment Assessment Current Status: Regressing Treatment Plan Continue Plan of Care Speech Short Term Goals Short Term Goals Short Term Goals 1. The patient will demonstrate increased attention to task, displaying appropriate attention for three minutes with moderate clinician verbal cueing. 2. The patient will display compliance with safe swallowing practices with 90% accuracy, independently. Speech Fci Goals Bricklayer Supervisor Goals 1. The patient will demonstrate improved functional cognition for a safe return to the least restrictive environment. 2. The patient will tolerate the least restrictive diet without s/s of suspected aspiration with 90% accuracy, independently. Speech-Plan Treatment Plan Speech Therapy Treatment Plan: Continue Plan of Care Treatment Duration: Aug 04, 2021 Frequency: 4 times per week (Four to five times per week. ) Estimated Hrs Per Day: .5 hour per day Rehab Potential: Poor Safety Risks/Education Teaching Recipient: Patient Teaching Methods: Discussion Response to Teaching: Unable to Comprehend Education Topics Provided: Plan of Care, Goal of Rehabilitation Time Speech Therapy Time In: 09:00 Speech Therapy Time Out: 09:12 Total Billed Time: 12 Billed Treatment Time 1[address] Jul 28, 2021 11:17
[2021-07-28] MEDS ORDERED: NS IV 1000 ML 1,000 ML ONE (11:39)
[2021-07-28] MEDS ORDERED: NS IV 1000 ML 1,000 ML IV SCH (11:45)
[2021-07-28] MEDS: ONDANSETRON 4 MG/2 ML (SDV) Z0FRAN IVP PRN ×2 (11:54→18:15)
[2021-07-28] MEDS ORDERED: AMOX250S70 PO (11:56)
[2021-07-28] MEDS ORDERED: MORP100S7 PO (11:56)
[2021-07-28] MEDS ORDERED: LORA2ORA PO (11:56)
[2021-07-28] MEDS ORDERED: ONDA4TAB11 PO (11:56)
--- NOTE | 2021-07-28 11:58 | Discharge Summary ---
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 Acute kidney injury Kidney stones Paroxysmal atrial fibrillation Hypertension GERD Colon obstruction Encephalopathy Homonymous hemianopia s/p hypovolemic shock Recent NSTEMI Skin cancer Past surgical history includes appendectomy, vasectomy, cataract removal, cystoscopy, bladder tumor excision, glaucoma surgery, laser eye surgery, cystectomy/prastectomy, kidney stone surgery, cystourethroscopy, nephrostomy, colostomy Bilateral pleural effusions with possible superimposed pneumonia on CT scan covered with cefepime on 07/26/2021 Plan: General surgery consult Cardiology consult Rehab protocol Supportive care 07/21/2021: Supportive care Advance diet Family at bedside Continue cognitive improvement management 07/22/2021: Supportive care Appreciate Dr. Scott plan 07/23/2021: Appreciate Dr. Scott Supportive care 07/24/21: Hospice at DC Focus on ADL's with OT in order to DC home 07/25/2021: Supportive care Dr. Scott will check at surgeon regarding no output on colostomy 07/26/2021: CT scan reviewed Dr. Scott spoke with Dr. Cao at I appreciate his help Cefepime added for superimposed pneumonia with effusions 07/27/2021: Hospice to be set up Antibiotic for presumed pneumonia (1) Bladder cancer (2) Colostomy in place (3) CVA (cerebral vascular accident) Discharge Summary Discharge Physical Examination Allergies: Coded Allergies: chlorhexidine (Verified Allergy, Unknown, 07/20/21) erythromycin base (Verified Allergy, Unknown, 07/20/21) silver (Verified Allergy, Unknown, 07/20/21) Uncoded Allergies: tegaderm (Allergy, Unknown, 07/20/21) Vitals & I&Os Vital Signs Date Time Temp Pulse Resp B/P (MAP) Pulse Ox O2 Delivery O2 Flow Rate FiO2 07/28/21 18:44 Nasal Cannula 2.00 07/28/21 15:14 36.7 98 14 115/75 (88) 93 Hospital Course Was the Problem List Reviewed?: Yes Pt had a lengthy hospital course for 9 days after he was admitted following a stroke and bladder cancer with metastasis with colostomy. Requiring Dr. Scott consultation with [facility] surgeon which revealed no other treatments available. He declined rapidly. He did acquire pneumonia which was managed with IV antibiotics. He was placed on hospice at discharge. All medications were sent into [facility]. Delay in discharge required up to fourth floor on comfort care and he 2 hours later. Labs (last 24 hrs) Laboratory Tests 07/21/21 05:11: White Blood Count 10.4, Red Blood Count 4.05L, Hemoglobin 12.0L, Hematocrit 37L, Mean Corpuscular Volume 91, Mean Corpuscular Hemoglobin 30, Mean Corpuscular Hemoglobin Concent 33, Red Cell Distribution Width 15.3H, Platelet Count 242, Mean Platelet Volume 10.7, Immature Granulocyte % (Auto) 1, Neutrophils (%) (Auto) 85H, Lymphocytes (%) (Auto) 4L, Monocytes (%) (Auto) 8, Eosinophils (%) (Auto) 2, Basophils (%) (Auto) 0, Neutrophils # (Auto) 8.8H, Lymphocytes # (Auto) 0.4L, Monocytes # (Auto) 0.9, Eosinophils # (Auto) 0.2, Basophils # (Aut o) 0.0, Immature Granulocyte # (Auto) 0.1, Sodium Level 137, Potassium Level 4.1, Chloride Level 106, Carbon Dioxide Level 19L, Anion Gap 12, Blood Urea Nitrogen 32H, Creatinine 0.94, Estimat Glomerular Filtration Rate 86, BUN/Creatinine Ratio 34, Glucose Level 97, Calcium Level 8.4L, Corrected Calcium 9.0, Total Bilirubin 0.9, Aspartate Amino Transf (AST/SGOT) 46H, Alanine Aminotransferase (ALT/SGPT) 26, Alkaline Phosphatase 76, Total Protein 5.8L, Albumin 3.2 07/21/21 11:12: Glucometer 100 07/22/21 05:45: White Blood Count 13.0H, Red Blood Count 3.95L, Hemoglobin 11.9L, Hematocrit 37L , Mean Corpuscular Volume 93, Mean Corpuscular Hemoglobin 30, Mean Corpuscular Hemoglobin Concent 32, Red Cell Distribution Width 15.6H, Platelet Count 212, Mean Platelet Volume 10.3 07/23/21 05:50: White Blood Count 16.6H, Red Blood Count 3.95L, Hemoglobin 12.1L, Hematocrit 37L , Mean Corpuscular Volume 93, Mean Corpuscular Hemoglobin 31, Mean Corpuscular Hemoglobin Concent 33, Red Cell Distribution Width 15.9H, Platelet Count 176, Mean Platelet Volume 10.4 07/26/21 06:24: White Blood Count 19.0H, Red Blood Count 4.39, Hemoglobin 13.1L, Hematocrit 41, Mean Corpuscular Volume 93, Mean Corpuscular Hemoglobin 30, Mean Corpuscular Hemoglobin Concent 32, Red Cell Distribution Width 15.9H, Platelet Count 83L, Mean Platelet Volume 11.4, Immature Granulocyte % (Auto) 1, Neutrophils (%) (Auto) 90H, Lymphocytes (%) (Auto) 2L, Monocytes (%) (Auto) 6, Eosinophils (%) (Auto) 1, Basophils (%) (Auto) 0, Neutrophils # (Auto) 17.1H, Lymphocytes # (Auto) 0.5L, Monocytes # (Auto) 1.2H, Eosinophils # (Auto) 0.1, Basophils # (Auto) 0.1, Immature Granulocyte # (Auto) 0.1, Neutrophils % (Manual) 96, Lymphocytes % (Manual) 2, Monocytes % (Manual) 2, Percent Immature Platelet Fraction 5.5, Blood Morphology Comment NORMAL, Sodium Level 136, Potassium Level 4.3, Chloride Level 107, Carbon Dioxide Level 17L, Anion Gap 12, Blood Urea Nitrogen 38H, Creatinine 1.25, Estimat Glomerular Filtration Rate 61, BUN/Crea tinine Ratio 30, Glucose Level 112H, Calcium Level 8.3L, Corrected Calcium 9.0, Total Bilirubin 1.0, Aspartate Amino Transf (AST/SGOT) 35H, Alanine Aminotransferase (ALT/SGPT) 15, Alkaline Phosphatase 78, Total Protein 5.8L, Albumin 3.1L 07/26/21 16:34: Lactic Acid Level 1.31, Procalcitonin 0.24H 07/27/21 05:25: White Blood Count 19.8H, Red Blood Count 4.46, Hemoglobin 13.4, Hematocrit 42, Mean Corpuscular Volume 94, Mean Corpuscular Hemoglobin 30, Mean Corpuscular Hemoglobin Concent 32, Red Cell Distribution Width 15.9H, Platelet Count 84L, Mean Platelet Volume 11.8, Immature Granulocyte % (Auto) 1, Neutrophils (%) (Auto) 90H, Lymphocytes (%) (Auto) 2L, Monocytes (%) (Auto) 6, Eosinophils (%) (Auto) 0, Basophils (%) (Auto) 0, Neutrophils # (Auto) 17.8H, Lymphocytes # (Auto) 0.5L, Monocytes # (Auto) 1.2H, Eosinophils # (Auto) 0.1, Basophils # (Auto) 0.1, Immature Granulocyte # (Auto) 0.2H, Percent Immature Platelet Fraction 6.1, Sodium Level 137, Potassium Level 4.4, Chloride Level 106, Carbon Dioxide Level 18L, Anion Gap 13, Blood Urea Nitrogen 43H, Creatinine 1.58H, Estimat Glomerular Filtration Rate 46, BUN/Creatinine Ratio 27, Glucose Level 119H, Calcium Level 8.2L, Corrected Calcium 8.8, Total Bilirubin 1.0, Aspartate Amino Transf (AST/SGOT) 34, Alanine Aminotransferase (ALT/SGPT) 15, Alkaline Phosphatase 81, Total Protein 6.1L, Albumin 3.2 Microbiology 07/26/21 Blood Culture - Preliminary, Resulted Staphylococcus epidermidis See Comments Pending Labs Microbiology Date/Time Source Procedure Growth Status 07/26/21 16:42 Peripheral Lt Hand Blood Culture - Preliminary Staphylococcus epidermidis See Comments Resulted 07/26/21 16:34 Peripheral Lt Ac Blood Culture - Preliminary Staphylococcus epidermidis Resulted Laboratory Tests 07/21/21 05:11: White Blood Count 10.4, Red Blood Count 4.05, Hemoglobin 12.0, Hematocrit 37, Mean Corpuscular Volume 91, Mean Corpuscular Hemoglobin 30, Mean Corpuscular Hemoglobin Concent 33, Red Cell Distribution Width 15.3, Platelet Count 242, Mean Platelet Volume 10.7, Immature Granulocyte % (Auto) 1, Neutrophils (%) (Auto) 85, Lymphocytes (%) (Auto) 4, Monocytes (%) (Auto) 8, Eosinophils (%) ( Auto) 2, Basophils (%) (Auto) 0, Neutrophils # (Auto) 8.8, Lymphocytes # (Auto) 0.4, Monocytes # (Auto) 0.9, Eosinophils # (Auto) 0.2, Basophils # (Auto) 0.0, Immature Granulocyte # (Auto) 0.1, Sodium Level 137, Potassium Level 4.1, Chloride Level 106, Carbon Dioxide Level 19, Anion Gap 12, Blood Urea Nitrogen 32, Creatinine 0.94, Estimat Glomerular Filtration Rate 86, BUN/Creatinine Ratio 34, Glucose Level 97, Calcium Level 8.4, Corrected Calcium 9.0, Total Bilirubin 0.9, Aspartate Amino Transf (AST/SGOT) 46, Alanine Aminotransferase (ALT/SGPT) 26, Alkaline Phosphatase 76, Total Protein 5.8, Albumin 3.2 07/21/21 11:12: Glucometer 100 07/22/21 05:45: White Blood Count 13.0, Red Blood Count 3.95, Hemoglobin 11.9, Hematocrit 37, Mean Corpuscular Volume 93, Mean Corpuscular Hemoglobin 30, Mean Corpuscular Hemoglobin Concent 32, Red Cell Distribution Width 15.6, Platelet Count 212, Mean Platelet Volume 10.3 07/23/21 05:50: White Blood Count 16.6, Red Blood Count 3.95, Hemoglobin 12.1, Hematocrit 37, Mean Corpuscular Volume 93, Mean Corpuscular Hemoglobin 31, Mean Corpuscular Hemoglobin Concent 33, Red Cell Distribution Width 15.9, Platelet Count 176, Mean Platelet Volume 10.4 07/26/21 06:24: White Blood Count 19.0, Red Blood Count 4.39, Hemoglobin 13.1, Hematocrit 41, Mean Corpuscular Volume 93, Mean Corpuscular Hemoglobin 30, Mean Corpuscular Hemoglobin Concent 32, Red Cell Distribution Width 15.9, Platelet Count 83, Mean Platelet Volume 11.4, Immature Granulocyte % (Auto) 1, Neutrophils (%) (Auto) 90, Lymphocytes (%) (Auto) 2, Monocytes (%) (Auto) 6, Eosinophils (%) (Auto) 1, Basophils (%) (Auto) 0, Neutrophils # (Auto) 17.1, Lymphocytes # (Auto) 0.5, Monocytes # (Auto) 1.2, Eosinophils # (Auto) 0.1, Basophils # (Auto) 0.1, Immature Granulocyte # (Auto) 0.1, Neutrophils % (Manual) 96, Lymphocytes % (Manual) 2, Monocytes % (Manual) 2, Percent Immature Platelet Fraction 5.5, Blood Morphology Comment NORMAL, Sodium Level 136, Potassium Level 4.3, Chloride Level 107, Carbon Dioxide Level 17, Anion Gap 12, Blood Urea Nitrogen 38, Creatinine 1.25, Estimat Glomerular Filtration Rate 61, BUN/Creatinine Ratio 30, Glucose Level 112, Calcium Level 8.3, Corrected Calcium 9.0, Total Bilirubin 1.0, Aspartate Amino Transf (AST/SGOT) 35, Alanine Aminotransferase (ALT/SGPT) 15, Alkaline Phosphatase 78, Total Protein 5.8, Albumin 3.1 07/26/21 16:34: Lactic Acid Level 1.31, Procalcitonin 0.24 07/27/21 05:25: White Blood Count 19.8, Red Blood Count 4.46, Hemoglobin 13.4, Hematocrit 42, Mean Corpuscular Volume 94, Mean Corpuscular Hemoglobin 30, Mean Corpuscular Hemoglobin Concent 32, Red Cell Distribution Width 15.9, Platelet Count 84, Mean Platelet Volume 11.8, Immature Granulocyte % (Auto) 1, Neutrophils (%) (Auto) 90, Lymphocytes (%) (Auto) 2, Monocytes (%) (Auto) 6, Eosinophils (%) (Auto) 0, Basophils (%) (Auto) 0, Neutrophils # (Auto) 17.8, Lymphocytes # (Auto) 0.5, Monocytes # (Auto) 1.2, Eosinophils # (Auto) 0.1, Basophils # (Auto) 0.1, Immature Granulocyte # (Auto) 0.2, Percent Immature Platelet Fraction 6.1, Sodium Level 137, Potassium Level 4.4, Chloride Level 106, Carbon Dioxide Level 18, Anion Gap 13, Blood Urea Nitrogen 43, Creatinine 1.58, Estimat Glomerular Filtration Rate 46, BUN/Creatinine Ratio 27, Glucose Level 119, Calcium Level 8.2, Corrected Calcium 8.8, Total Bilirubin 1.0, Aspartate Amino Transf (AST/SGOT) 34, Alanine Aminotransferase (ALT/SGPT) 15, Alkaline Phosphatase 81, Total Protein 6.1, Albumin 3.2 Discharge Home Medications: Active Scripts Active Lorazepam Intensol (Lorazepam) 2 Mg/1 Ml Oral.conc 1 Mg PO Q2H PRN Augmentin 250-62.5 mg/5 ml (Amoxicillin/Potassium Clav) 250 Mg/5 Ml Susp.recon 10 Ml PO BID Ondansetron Odt (Ondansetron) 4 Mg Tab.rapdis 8 Mg PO Q8H PRN Morphine Conc. 20mg/ml (Morphine Sulfate) 100 Mg/5 Ml Solution 0 Mg PO Q4HR PRN Reported Rhopressa (Netarsudil Mesylate) 2.5 Ml Drops 1 Drop OU HS Prednisolone Acetate 5 Ml Drops.susp 1 Drop OD QID Acular (Ketorolac Tromethamine) 5 Ml Drops 1 Drop OD QID Cosopt Eye Drops (Dorzolamide HCl/Timolol Maleat) 10 Ml Drops 1 Drop OD BID Dicyclomine HCl 10 Mg Capsule 10 Mg PO ACHS Preservision Areds 2 Softgel (Vit C/E/Zn/Coppr/Lutein/Zeaxan) 1 Each Capsule 2 Each PO DAILY Senna-S Tablet (Sennosides/Docusate Sodium) 1 Each Tablet 1 Each PO DAILY PRN Miralax (Polyethylene Glycol 3350) 17 Gm Powd.pack 17 Gm PO DAILY PRN Ondansetron HCl 8 Mg Tablet 8 Mg PO Q8H PRN Xalatan (Latanoprost) 2.5 Ml Drops 1 Drop OD HS Fish Oil Belfast-3 Softgel (Belfast-3S/Dha/Epa/Fish Oil) 1 Each Capsule.dr 1 Each PO DAILY Pepcid (Famotidine) 20 Mg Tablet 20 Mg PO BID PRN Dexamethasone 4 Mg Tablet 8 Mg PO DAILY PRN Cetirizine HCl 10 Mg Tablet 5 Mg PO DAILY PRN Alphagan P (Brimonidine Tartrate) 5 Ml Drops 1 Drop OD BID Atenolol 50 Mg Tablet 50 Mg PO DAILY Aspirin EC (Aspirin) 81 Mg Tablet.dr 81 Mg PO HS Tylenol Extra Strength (Acetaminophen) 500 Mg Tablet 500 Mg PO Q6H PRN Tramadol HCl 50 Mg Tablet 50 Mg PO Q8H PRN Atorvastatin Calcium 40 Mg Tablet 40 Mg PO DAILY Tylenol (Acetaminophen) 325 Mg Capsule 975 Mg PO Q8H PRN Instructions to patient/family Please see electronic discharge instructions given to patient. Diagnosis/Problems Diagnosis/Problems (1) Bladder cancer (2) Colostomy in place (3) CVA (cerebral vascular accident) MANPREET COLVIN DO Jul 28, 2021 11:58
--- NOTE | 2021-07-28 12:08 | Occ Therapy Progress Note ---
Therapy Progress Note Attempt to see pt for second treatment. Pt unable to follow cues/commands and does not open eyes. He often moans as if in pain but does not verbalize feelings. Family in room and reports that pt will be discharging home on hospice later today. requests pt rest. 1 visit No charge Tracy Robles OT Jul 28, 2021 12:08
--- NOTE | 2021-07-28 13:09 | Therapy Team Discharge Summary ---
Therapy Discharge Summary Discharge Recommendations Date of Discharge Occupational Therapy Decreased Activ Tolerance, Decreased Safety Aware, Decreased UE Strength, Impaired Bed Mobility, Impaired Cognition, Impaired Coordination, Impaired Funct Balance, Impaired I ADL's, Impaired Self-Care Skills, Visual-Perceptual Deficit Speech-Language Pathology The patient will be discharged from skilled speech pathology services at this time. Unfortunately, the patient regressed throughout his stay and will be discharging on this date with home hospice. Speech pathology cognitive and dysphagia goals were not met upon discharge. PT Intermediate Goals Intermediate Goals PT Intermediate Goals Time Frame: Aug 10, 2021 Roll Left to Right (QC): 6 Sit to Lying (QC): 6 Lying-Sitting on Side/Bed(QC): 6 Sit to Stand (QC): 5 Chair/Pqf-ru-Ejoaa Xfer(QC): 4 (SBA) Car Transfer (QC): 4 (SBA) Does the Patient Walk: Yes Walk 10 feet (QC): 4 (SBA) Walk 10ft-Uneven Surface(QC): 4 (SBA) Walk 50ft with 2 Turns (QC): 4 (SBA) Walk 150 ft (QC): 4 (SBA) Wheel 50 feet with 2 turns (QC: 9 1 Step (curb) (QC): 4 (SBA) 4 Steps (QC): 4 (SBA) 12 Steps (QC): 88 Picking up an Object (QC): 4 (SBA) OT Intermediate Goals Retail Link Analyst Goals Time Frame: Aug 20, 2021 Eating (QC): 5 Oral Hygiene (QC): 5 Shower/Bathe Self (QC): 4 Upper Body Dressing (QC): 5 Lower Body Dressing (QC): 4 On/Off Footwear (QC): 4 Toileting Hygiene (QC): 4 Toilet/Commode Transfer (QC): 4 (SBA) Additional Goals: 1-Demonstrate ADL Tasks, 2-Verbalize Understanding, 3- ImproveStrength/Stella 1=Demonstrate adherence to instructed precautions during ADL tasks. 2=Patient will verbalize/demonstrate understanding of assistive devices/modifications for ADL. 3=Patient will improve strength/tolerance for activity to enable patient to perform ADL's. Speech Retail Link Analyst Goals Intermediate Goals 1. The patient will demonstrate improved functional cognition for a safe return to the least restrictive environment. NOT MET 2. The patient will tolerate the least restrictive diet without s/s of suspected aspiration with 90% accuracy, independently. NOT MET NEIL REINA Jul 28, 2021 13:08
[2021-07-28 15:14] VITALS: BP 115/75
--- NOTE | 2021-07-29 11:10 | Therapy Team Discharge Summary ---
Therapy Discharge Summary Discharge Recommendations Date of Discharge Jul 28, 2021 at 19:40 Physical Therapy Patient came to rehab following a CVA. Upon evaluation patient performed rolling and supine <-> sit with independence, sit <-> stand CGA, transfers min assist, car transfer min assist, ambulated 100' with a rolling walker with min assist, went up and down 1 step using a rolling walker with min assist, and picked up an object from the floor using a stapler machine with CGA. Patient has been performing bed mobility and transfer training, balance and endurance training, functional strengthening, gait training, and education. Patient has not met any of his detention goals. Patient has been declining in function and participation. Patient was transferred to the medical floor due to medical complications. Patient will be discharged from PT at this time. Roll Left to Right (QC): 3 Sit to Lying (QC): 3 Lying to Sitting/Side of Bed(Q: 3 Sit to Stand (QC): 3 Chair/Hro-zm-Frewd Xfer(QC): 3 Toilet Transfer (QC): 88 Car Transfer (QC): 3 Does the Patient Walk: Yes Mode of Locomotion: Walk Anticipated Mode of Locomotion: Walk Walk 10 feet (QC): 4 Walk 50 ft with 2 Turns(QC): 4 Walk 150 ft (QC): 4 Walking 10ft on uneven surface: 3 Distance: 100'x2 Gait Assistive Device: Parallel Bars Does the Pt Use a Wheelchair: Yes Wheel 50 ft with 2 turns (QC): 3 Wheel 150 ft (QC): 3 Type of Wheelchair: Manual #of Steps: 1 1 Step (curb) (QC): 3 4 Steps (QC): 88 12 Steps (QC): 88 Walking Assistive Device: Walker Balance Sitting Static: Normal Balance Sitting Dynamic: Normal Balance-Standing Static: Fair Picking up an Object (QC): 4 Occupational Therapy Decreased Activ Tolerance, Decreased Safety Aware, Decreased UE Strength, Impaired Bed Mobility, Impaired Cognition, Impaired Coordination, Impaired Funct Balance, Impaired I ADL's, Impaired Self-Care Skills, Visual-Perceptual Deficit Eating (QC): 1 Oral Hygiene (QC): 2 Shower/Bathe Self (QC): 2 Upper Body Dressing (QC): 1 Lower Body Dressing (QC): 2 On/Off Footwear (QC): 1 Toileting Hygiene (QC): 1 PT Fci Goals Fci Goals PT Fci Goals Time Frame: Aug 10, 2021 Roll Left to Right (QC): 6 Sit to Lying (QC): 6 Lying-Sitting on Side/Bed(QC): 6 Sit to Stand (QC): 5 Chair/Miu-bf-Gpwsx Xfer(QC): 4 (SBA) Car Transfer (QC): 4 (SBA) Does the Patient Walk: Yes Walk 10 feet (QC): 4 (SBA) Walk 10ft-Uneven Surface(QC): 4 (SBA) Walk 50ft with 2 Turns (QC): 4 (SBA) Walk 150 ft (QC): 4 (SBA) Wheel 50 feet with 2 turns (QC: 9 1 Step (curb) (QC): 4 (SBA) 4 Steps (QC): 4 (SBA) 12 Steps (QC): 88 Picking up an Object (QC): 4 (SBA) OT Fci Goals Fci Goals Time Frame: Aug 20, 2021 Eating (QC): 5 Oral Hygiene (QC): 5 Shower/Bathe Self (QC): 4 Upper Body Dressing (QC): 5 Lower Body Dressing (QC): 4 On/Off Footwear (QC): 4 Toileting Hygiene (QC): 4 Toilet/Commode Transfer (QC): 4 (SBA) Additional Goals: 1-Demonstrate ADL Tasks, 2-Verbalize Understanding, 3- ImproveStrength/Stella 1=Demonstrate adherence to instructed precautions during ADL tasks. 2=Patient will verbalize/demonstrate understanding of assistive d evices/modifications for ADL. 3=Patient will improve strength/tolerance for activity to enable patient to perform ADL's. Speech Theology Professor Goals Fci Goals 1. The patient will demonstrate improved functional cognition for a safe return to the least restrictive environment. NOT MET 2. The patient will tolerate the least restrictive diet without s/s of suspected aspiration with 90% accuracy, independently. NOT MET DEVAUGHN ROJAS PT Jul 29, 2021 11:10
--- NOTE | 2021-07-29 11:13 | Therapy Team Discharge Summary ---
Therapy Discharge Summary Discharge Recommendations Date of Discharge Jul 28, 2021 at 19:40 Physical Therapy Roll Left to Right (QC): 3 Sit to Lying (QC): 3 Lying to Sitting/Side of Bed(Q: 3 Sit to Stand (QC): 3 Chair/Yap-yl-Cljmy Xfer(QC): 3 Toilet Transfer (QC): 88 Car Transfer (QC): 3 Does the Patient Walk: Yes Mode of Locomotion: Walk Anticipated Mode of Locomotion: Walk Walk 10 feet (QC): 4 Walk 50 ft with 2 Turns(QC): 4 Walk 150 ft (QC): 4 Walking 10ft on uneven surface: 3 Distance: 100'x2 Gait Assistive Device: Parallel Bars Does the Pt Use a Wheelchair: Yes Wheel 50 ft with 2 turns (QC): 3 Wheel 150 ft (QC): 3 Type of Wheelchair: Manual #of Steps: 1 1 Step (curb) (QC): 3 4 Steps (QC): 88 12 Steps (QC): 88 Walking Assistive Device: Walker Balance Sitting Static: Normal Balance Sitting Dynamic: Normal Balance-Standing Static: Fair Picking up an Object (QC): 4 Occupational Therapy Pt arrived to ARU following an ex lab and CVA. At time of eval, pt was dependent for toileting and footwear, max a for bathing and LB dressing, mod a for upper body dressing, and set up for oral care. While on rehab, pt declined rapidly in function. He became terminally ill and transferred to the medical floor on comfort care. Thus, he did not meet any of his prison goals. Pt will be discharged from OT. Decreased Activ Tolerance, Decreased Safety Aware, Decreased UE Strength, Impaired Bed Mobility, Impaired Cognition, Impaired Coordination, Impaired Funct Balance, Impaired I ADL's, Impaired Self-Care Skills, Visual-Perceptual Deficit Eating (QC): 1 Oral Hygiene (QC): 2 Shower/Bathe Self (QC): 2 Upper Body Dressing (QC): 1 Lower Body Dressing (QC): 2 On/Off Footwear (QC): 1 Toileting Hygiene (QC): 1 PT Alf Goals Medical Authorization Specialist Goals PT Alf Goals Time Frame: Aug 10, 2021 Roll Left to Right (QC): 6 Sit to Lying (QC): 6 Lying-Sitting on Side/Bed(QC): 6 Sit to Stand (QC): 5 Chair/Ibx-eo-Mgcpa Xfer(QC): 4 (SBA) Car Transfer (QC): 4 (SBA) Does the Patient Walk: Yes Walk 10 feet (QC): 4 (SBA) Walk 10ft-Uneven Surface(QC): 4 (SBA) Walk 50ft with 2 Turns (QC): 4 (SBA) Walk 150 ft (QC): 4 (SBA) Wheel 50 feet with 2 turns (QC: 9 1 Step (curb) (QC): 4 (SBA) 4 Steps (QC): 4 (SBA) 12 Steps (QC): 88 Picking up an Object (QC): 4 (SBA) OT Medical Authorization Specialist Goals Medical Authorization Specialist Goals Time Frame: Aug 20, 2021 Eating (QC): 5 (not met) Oral Hygiene (QC): 5 (not met) Shower/Bathe Self (QC): 4 (not met) Upper Body Dressing (QC): 5 (not met) Lower Body Dressing (QC): 4 (not met) On/Off Footwear (QC): 4 (not met) Toileting Hygiene (QC): 4 (not met) Toilet/Commode Transfer (QC): 4 (not met) Additional Goals: 1-Demonstrate ADL Tasks, 2-Verbalize Understanding, 3- ImproveStrength/Stella 1=Demonstrate adherence to instructed precautions during ADL tasks. 2=Patient will verbalize/demonstrate understanding of assistive devices/modifications for ADL. 3=Patient will improve strength/tolerance for activity to enable patient to perform ADL's. Speech Medical Authorization Specialist Goals Alf Goals 1. The patient will demonstrate improved functional cognition for a safe return to the least restrictive environment. NOT MET 2. The patient will tolerate the least restrictive diet without s/s of suspected aspiration with 90% accuracy, independently. NOT MET Tracy Robles OT Jul 29, 2021 11:13
== END 2021-07-28 19:40 | disposition short-term general hospital (02) | DRG 56 ==
PROVIDERS: ADMIT Internal Medicine; ATTEND Internal Medicine
DX: I69.351 Hemiplegia and hemiparesis following cerebral infarction affecting right dominant side (principal); G72.81 Critical illness myopathy; I21.A1 Myocardial infarction type 2; J18.9 Pneumonia, unspecified organism; C78.6 Secondary malignant neoplasm of retroperitoneum and peritoneum; N17.9 Acute kidney failure, unspecified; K56.609 Unspecified intestinal obstruction, unspecified as to partial versus complete obstruction; Z51.5 Encounter for palliative care; Z66 Do not resuscitate; I69.398 Other sequelae of cerebral infarction; H53.461 Homonymous bilateral field defects, right side; I48.0 Paroxysmal atrial fibrillation; I10 Essential (primary) hypertension; K21.9 Gastro-esophageal reflux disease without esophagitis; N20.0 Calculus of kidney; K29.70 Gastritis, unspecified, without bleeding; R58 Hemorrhage, not elsewhere classified; B35.1 Tinea unguium; G62.9 Polyneuropathy, unspecified; I25.10 Atherosclerotic heart disease of native coronary artery without angina pectoris; E78.00 Pure hypercholesterolemia, unspecified; N40.0 Benign prostatic hyperplasia without lower urinary tract symptoms; Z93.3 Colostomy status; Z85.51 Personal history of malignant neoplasm of bladder; Z79.52 Long term (current) use of systemic steroids; Z79.82 Long term (current) use of aspirin; Z88.1 Allergy status to other antibiotic agents; Z88.8 Allergy status to other drugs, medicaments and biological substances
CPT/HCPCS: 36415; 74018; 74177; 80053; 82947; 83605; 84145; 85007; 85025; 85027; 87040; 87077; 87186; 94760

== ENCOUNTER 2021-07-28 19:47 | Inpatient (IN) | payer MEDICARE ==
[~2021-07-28 19:47] MED LIST: ACET-2267 PO; ACET325C7 PO; AMOX250S70 PO; ASPI-1238 PO; ATEN50TA PO; ATOR40TA70 PO; BRIM5DRO12 OD; CETI10TA17 PO; DEXA4TAB PO; DICY10CA12 PO; DORZ10DR22 OD; FAMO-119 PO; KETO5DRO OD; LATA2.5D19 OD; LORA2ORA PO; MORP100S7 PO; NETA2.5D OU; OMEG-154 PO; ONDA-106 PO; ONDA4TAB11 PO; POLY17PO6 PO; PRED5DRO17 OD; SENN-109 PO; TRAM50TA3 PO; VIT1CAPS44 PO
--- OUTSIDE RECORDS SUMMARY | 2021-07-28 19:50 | XMS REPORT | Encounter Summary ---
Author Author [facility] Organization [facility] Address Unknown Phone Unavailable Care Team Providers Care Modeling Agent Name Role Phone Angelo Gordon MD PCP Bartolo Cornejo MD Unavailable Encounter Details Care Team Description Date Type Department Arrived 07/26/2021 Hospital Imaging: [facility], Encounter [facility] [address] [facility] [address] [place] [address] Social History Date Tobacco Use Types Packs/Day Years Used Never Smoker Smokeless Tobacco: Never Used Comments Alcohol Use Standard Drinks/Week Not Currently 0 (1 standard drink = 0.6 o z pure alcohol) Sex Assigned at Date Recorded Male 05/18/2020 12:22 PM SALES REPRESENTATIVE Date Recorded COVID-19 Exposure Response 07/12/2021 11:38 AM SALES REPRESENTATIVE In the last month, have you been [...] track (07/12/2021 Yes April Marie, 6:07 PM SALES REPRESENTATIVE) RN Note: "To heal and recover, and get stronger, be as healthy as I can" documented as of this encounter Procedures Comments Procedure Name Priority Date/Time Associated Diag nosis CT ABD/PEL EXTERNAL Routine 07/26/2021 Diagnosis unknown IMAGING 12:05 AM SALES REPRESENTATIVE documented in this encounter Results * CT ABD/PEL EXTERNAL IMAGING (07/26/2021 12:05 AM SALES REPRESENTATIVE) Modality Anatomical Region Laterality Computed Radiography Specimen Narrative Scheduling, Silent - 07/27/2021 11:06 AM SALES REPRESENTATIVE This order has been auto finalized and does not contain a result. documented in this encounter Visit Diagnoses Diagnosis Diagnosis unknown Other unknown and unspecified cause of morbidity or mortality documented in this encounter Additional Health Concerns Noted Time Assessment 07/20/2021 8:48 AM SALES REPRESENTATIVE A fall risk assessment has been complet ed for the patient documented as of this encounter Care Teams Start Date End Date Modeling Agent Relationship Specialty 05/17/20 Angelo Gordon MD PCP - General Internal [address] [facility] Medicine [facility] [address] [place] [id number] 05/17/20 Bartolo Cornejo MD Internal [address] [facility] [address] [place] [id number] documented as of this encounter
--- OUTSIDE RECORDS SUMMARY | 2021-07-28 19:50 | XMS REPORT | Encounter Summary ---
Author Author [facility] Organization [facility] Address Unknown Phone Unavailable Care Team Providers Care Site Project Manager Name Role Phone Angelo Gordon MD PCP Bartolo Cornejo MD Unavailable Reason for Visit * Reason Onset Date Comments General Question 07/21/2021 Encounter Details Care Team Description Date Type Department NashMaurice DO [address] [place], [place] General Question 07/21/2021 Telephone On[facility]: [facility] [address] [facility]. [place], [place] [phone] Social History Date Tobacco Use Types Packs/Day Years Used Never Smoker Smokeless Tobacco: Never Used Comments Alcohol Use Standard Drinks/Week Not Currently 0 (1 standard drink = 0.6 o z pure alcohol) Sex Assigned at Date Recorded Male 05/18/2020 12:22 PM RESULTS ENGINEER Date Recorded COVID-19 Exposure Response 07/12/2021 11:38 AM RESULTS ENGINEER In the last month, have you [...] encounter Miscellaneous Notes * Telephone Encounter - Mariya Ayala RN - 07/21/2021 12:58 PM RESULTS ENGINEER Pt left me a VM today. She asked when do Chemo's adrianna come out postop. I called her back and left a VM with my direct phone number. I told her adrianna s olimpia in for 3 weeks, so if his incision looks healed on 07/30 at his postop appt w magdalena Cao they will be taken out then. I told her if he is not able to travel back to at that time to let me know an d we can adjust his appt. LTS ENGINEER documented in this encounter Plan of [...] track (07/12/2021 Yes April Marie, 6:07 PM RESULTS ENGINEER) RN Note: "To heal and recover, and get stronger, be as healthy as I can" documented as of this encounter Visit Diagnoses Not on filedocumented in this encounter Additional Health Concerns Noted Time Assessment 07/20/2021 8:48 AM RESULTS ENGINEER A fall risk assessment has been complet ed for the patient documented as of this encounter Care Teams Start Date End Date Site Project Manager Relationship Specialty 05/17/20 Angelo Gordon MD PCP - General Internal [address] [facility] Medicine [facility] [address] [id number] 05/17/20 Bartolo Cornejo MD Internal [address] [facility] [address] [place] [id number] documented as of this encounter
--- OUTSIDE RECORDS SUMMARY | 2021-07-28 19:50 | XMS REPORT | Encounter Summary ---
Author Author [facility] Organization [facility] Address Unknown Phone Unavailable Care Team Providers Care Streaming Media Specialist Name Role Phone Angelo Gordon MD PCP Bartolo Cornejo MD Unavailable Encounter Details Care Team Description Date Type Department Arrived 07/26/2021 Hospital Imaging: Main [facility], Encounter [facility] [address] [facility] [address] [place] [address] Social History Date Tobacco Use Types Packs/Day Years Used Never Smoker Smokeless Tobacco: Never Used Comments Alcohol Use Standard Drinks/Week Not Currently 0 (1 standard drink = 0.6 o z pure alcohol) Sex Assigned at Date Recorded Male 05/18/2020 12:22 PM SANITATION SUPERVISOR Date Recorded COVID-19 Exposure Response 07/12/2021 11:38 AM SANITATION SUPERVISOR In the last month, have you been [...] track (07/12/2021 Yes April Marie, 6:07 PM SANITATION SUPERVISOR) RN Note: "To heal and recover, and get stronger, be as healthy as I can" documented as of this encounter Procedures Comments Procedure Name Priority Date/Time Associated Diag nosis GENERAL RAD ABDOMEN Routine 07/26/2021 Diagnosis unknown EXTERNAL IMAGING 12:00 AM SANITATION SUPERVISOR documented in this encounter Results * GENERAL RAD ABDOMEN EXTERNAL IMAGING (07/26/2021 12:00 AM SANITATION SUPERVISOR) Modality Anatomical Region Laterality Computed Radiography Specimen Narrative Scheduling, Silent - 07/27/2021 11:05 AM SANITATION SUPERVISOR This order has been auto finalized and does not contain a result. documented in this encounter Visit Diagnoses Diagnosis Diagnosis unknown Other unknown and unspecified cause of morbidity or mortality documented in this encounter Additional Health Concerns Noted Time Assessment 07/20/2021 8:48 AM SANITATION SUPERVISOR A fall risk assessment has been complet ed for the patient documented as of this encounter Care Teams Start Date End Date Streaming Media Specialist Relationship Specialty 05/17/20 Angelo Gordon MD PCP - General Internal [address] [facility] [address] [id number] 05/17/20 Bartolo Cornejo MD Internal [address] [facility] [address] [place] [id number] documented as of this encounter
--- OUTSIDE RECORDS SUMMARY | 2021-07-28 19:50 | XMS REPORT | Encounter Summary ---
Author Author [facility] Organization [facility] Address Unknown Phone Unavailable Care Team Providers Care Quarrying Manager Name Role Phone Angelo Gordon MD PCP Bartolo Cornejo MD Unavailable Reason for Visit * Reason Onset Date Comments General Question 07/22/2021 Encounter Details Care Team Description Date Type Department NashMaurice JoaquinDO [address] [place], [place] General Question 07/22/2021 Telephone Oncology: [facility] [address] [facility]. [place], [place] [phone] Social History Date Tobacco Use Types Packs/Day Years Used Never Smoker Smokeless Tobacco: Never Used Comments Alcohol Use Standard Drinks/Week Not Currently 0 (1 standard drink = 0.6 o z pure alcohol) Sex Assigned at Date Recorded Male 05/18/2020 12:22 PM [employer] Date Recorded COVID-19 Exposure Response 07/12/2021 11:38 AM V[employer]INARY [employer]ICAL OFFICER In the last month, have you been [...] Telephone Encounter - Mariya Ayala RN - 07/22/2021 1:14 PM [employer]IN[employer]ICAL [employer] Pt called today concerned that Chemo has had no ostomy output since he got there on 07/20. He has had some blood out of his colostomy but that's it. She said the surgeon was in last night to see him. She's not sure what they ordered, but they stopped his heparin. She put his nurse on the phone (pt is at [facility] in [place], [place]). I spoke to Poonam. She gave me his colostomy output tota ls for the past 2 days approx 800ml out. I talked to pt again and said if the staff there has a concern they can tricia l me directly or can page Dr. Cao if it's urgent or after hours. His s aid all of his output is just "dark blood." I told her without seeing it I am un sure of what it is, but since he is under their care, they should call us with benjamin pedraza. If she is concerned with this she needs to address it with his nurse an d the physician there managing his care. I am happy to talk to her or them anytime, but per his nurse he seems to be havi ng output and Hg this morning was 11.9. [employer]IN[employer] MEDICAL OFFICER documented in this encounter Plan of Treatment [...] from illness [facility] (07/12/2021 Yes Frank April, 6:07 PM V[employer]ERINARY MEDICAL OFFICER) RN Note: "To heal and recover, and get stronger, be as healthy as I can" documented as of this encounter Visit Diagnoses Not on filedocumented in this encounter Additional Health Concerns Noted Time Assessment 07/20/2021 8:48 AM V[employer]IN[employer] MEDICAL OFFICER A fall risk assessment has been complet ed for the patient documented as of this encounter Care Teams Start Date End Date Quarrying Manager Relationship Specialty 05/17/20 Angelo Gordon MD PCP - General Internal [address] [facility] [address] [place] [id number] 05/17/20 Bartolo Cornejo MD Internal [phone] [facility] [address] [place] [id number] documented as of this encounter
--- OUTSIDE RECORDS SUMMARY | 2021-07-28 19:50 | XMS REPORT | Clinical Summary ---
Author Author [facility] Organization [facility] Address Unknown Phone Unavailable Care Team Providers Care Shuttle Filler Name Role Phone Angelo Gordon MD PCP Bartolo Cornejo MD Unavailable Source Comments Some departments are not documenting in the electronic medical record. If you d o not see the information that you expected, contact Release of Information in [facility] [employer] Information Management department at [phone] for further assistan ce in locating additional records.[facility] Allergies Comments Active Allergy Reactions Severity Noted [...] tablet mouth daily as needed. Active Vit A,C,M-Wchz-Ljekbt Take 2 0 (PRESERVISION AREDS) capsules by [id number] mouth daily. fisc-ox-axep cap Active fish oil /omega-3 fatty Take [...] Problems Problem Noted Date Acute ischemic left VIDEO CONTROL ENGINEER stroke 07/16/2021 Coagulopathy 07/16/2021 Hypovolemic shock 07/16/2021 NSTEMI, initial episode of care 07/16/2021 Hypovolemia 07/15/2021 Encephalopathy 07/15/2021 Overview: Formatting of this note might be differ ent from the original. From stroke Moderate malnutrition 07/15/2021 Acute ischemic stroke 07/14/2021 Overview: Formatting of this note might be differ ent from the original. L VIDEO CONTROL ENGINEER occlusion Watershed distribution infarcts within bilateral cerebrum [...] S LIDES: Final Diagnosis: A. Outside case "[id number]" (date radha ected 04/21/2020). 1. Transurethral resection, [...] Encounters Care Team Description Date Type Specialty Cody Louie MD Chemotherapy 07/27/2021 Telephone Oncology Maurice Cao, DO Scheduling 07/27/2021 Telephone Oncology Arrived 07/26/2021 Hospital Radiology Encounter Arrived 07/26/2021 Hospital Radiology Encounter Maurice Cao, General Question 07/22/2021 Telephone Oncology Maurice Cao DO General Question 07/21/2021 Telephone Oncology 07/12/2021 Hospital Radiology Encounter 07/12/2021 Hospital Radiology Encounter Maurice Cao DO EXPLORATORY LAPAROTOMY, DIVERTING LOOP C OLOSTOMY 07/12/2021 Surgery Dallas Gaxiola MD Pozek, John-Paul J, MD 07/12/2021 Anesthesia Event Maurice Cao DO Colon obstruction (HCC) 07/12/2021 [facility] Hematology and Onco logy - Encounter 07/20/2021 07/12/2021 Travel Cody Louie MD 07/09/2021 Hospital Oncology Encounter Laina Cheney, SELF CONTAINED BEHAVIOR UNIT TEACHER-SEISMOGRAPH HELPER Malignant neoplasm of overlapping sites of bladder [...] Cody Louie MD 06/25/2021 Orders Only Oncology 06/24/2021 Hospital Radiology Encounter 06/24/2021 Hospital Radiology Encounter Keith Trinidad MD [...] 04/29/2021 Travel Kvng Rm MD Kruse, Courtney, RN Danny Carter, RT(R)(CV),LRT Shawn Hall MD Nephrolithiasis 04/28/2021 Hospital - Encounter 04/30/2021 04/28/2021 Travel from Last 3 Months Immunizations Name Administration [...] BPLND performed by Radha Trinidad MD at [facility] OR KIDNEY STONE SURGERY 11/12/2020 Back/Right PERCUTANE OUS NEPHROSTOLITHOTOMY/ PYELOSTOLITHOTOMY - 2 CM OR LESS performed by Dominguez Bowman MD at [facility] OR Medical devices from this surgery are i n the Implants section. CYSTOURETHROSCOPY 02/15/2021 Ureter/Right URETEROSCOPY WITH URETERAL STENT EXCHANGE performed by Tristan Bowman MD at [facility] OR Medical devices from this surgery are i n the Implants section. KIDNEY STONE SURGERY 04/29/2021 Left PERCUTANE OUS NEPHROSTOLITHOTOMY/ PYELOSTOLITHOTOMY - GREATER THAN 2 CM performed by Kvng Rm MD at [facility] OR NEPHROSTOMY 04/29/[address] ACEMENT NEPHROSTOMY CATHETER WITH NEPHROSTOGRAM/ URETEROGRAM/ IMAGE-CHINMAY NCE performed by Kvng Rm MD at [facility] OR CYSTOURETHROSCOPY 04/29/2021 Left CYSTOURETHRO SCOPY WITH URETEROSCOPY AND/ OR PYELOSCOPY - WITH REMOVAL/ MANIPULATION CALCULUS performed by Kvng Rm MD at [facility] OR COLOSTOMY 07/12/2021 Abdomen/N/A EXPLORATORY LAP AROTOMY, [...] at Date Recorded Male 05/18/2020 12:22 PM [employer] HR DEVELOPER Date Recorded COVID-19 Exposure Response 07/12/2021 11:38 AM [employer] HR DEVELOPER In the last month, have you been in contact with No / Unsure someone who was confirmed or suspected to have Coronavirus / COVID-19? Last Filed Vital Signs Reading Time Taken Comments Vital Sign 128/79 07/20/2021 11:44 AM [employer] HR DEVELOPER Blood Pressure 80 07/20/2021 11:44 AM [employer] HR DEVELOPER Pulse 36.5 C (97.7 F) 07/20/2021 11:44 AM [employer] HR DEVELOPER Temperature 16 07/09/2021 10:06 AM [employer] HR DEVELOPER Respiratory Rate 93% 07/20/2021 11:44 AM [employer] HR DEVELOPER Oxygen Saturation - - Inhaled Oxygen Concentration 64.8 kg (142 lb 13.7 oz) 07/15/2021 9:04 AM [employer] HR DEVELOPER Weight 172.7 cm (5' 8") 07/15/2021 9:04 AM [employer] HR DEVELOPER Height 21.72 07/15/2021 9:04 AM [employer] HR DEVELOPER Body Mass Index Plan of Treatment Health [...] track (07/12/2021 Yes April Marie, 6:07 PM [employer] HR DEVELOPER) RN Note: "To heal and recover, and get stronger, be as healthy as I can" Implants Device Identifier Shelf Expiration Date Model / Serial / L ot Implanted Type Area Manufactur er 10/30/2023 [id number] / [id number] / [id number] Stent Ureteral 6fr 28cm Soft Tria - Right: Kidney B [place] [id number] SCIENTIFIC Implanted: Qty: 1 on 02/15/2021 at [facility] Device Identifier Shelf Expiration Date Model / Serial / L ot Explanted Type Area Manufactur er 04/03/2023 [id number] / [id number] / [id number] Stent Ureteral 6fr 30cm Pigtail Right: Kidney BOSTO N Curve Taper Tip Bladder - S Na SCIENTIFIC Implanted: Qty: 1 on 11/12/2020 by UROLOGY Tristan Bowman MD at [facility] Explanted: Qty: 1 on 02/15/2021 at [facility] Procedures Comments Procedure Name Priority Date/Time Associated Diag nosis CT ABD/PEL EXTERNAL Routine 07/26/2021 Diagnosis unknown IMAGING 12:05 AM [employer] HR DEVELOPER GENERAL RAD ABDOMEN Routine 07/26/2021 Diagnosis unknown EXTERNAL IMAGING 12:00 AM [employer] HR DEVELOPER HC CBC,AUTOMATED Routine 07/20/2021 8:17 AM [employer] HR DEVELOPER HC PHOSPHOROUS, SERUM Routine 07/19/2021 2:42 AM [employer] HR DEVELOPER HC MAGNESIUM Routine 07/19/2021 2:42 AM [employer] HR DEVELOPER HC BASIC METABOLIC PANEL Routine 07/19/2021 2:42 AM [employer] HR DEVELOPER HC PHOSPHOROUS, SERUM Routine 07/17/2021 3:35 AM [employer] HR DEVELOPER HC MAGNESIUM Routine 07/17/2021 3:35 AM [employer] HR DEVELOPER HC BASIC METABOLIC PANEL Routine 07/17/2021 3:35 AM [employer] HR DEVELOPER HC PHOSPHOROUS, SERUM Routine 07/16/2021 4:40 AM [employer] HR DEVELOPER HC MAGNESIUM Routine 07/16/2021 4:40 AM [employer] HR DEVELOPER HC BASIC METABOLIC PANEL Routine 07/16/2021 4:40 AM [employer] HR DEVELOPER HC CBC,AUTOMATED Routine 07/16/2021 4:40 AM [employer] HR DEVELOPER PV CAROTID ARTERY DUPLEX Routine 07/15/2021 SCAN 9:04 AM [employer] HR DEVELOPER HC PHOSPHOROUS, SERUM Routine 07/15/2021 2:55 AM [employer] HR DEVELOPER HC MAGNESIUM Routine 07/15/2021 2:55 AM [employer] HR DEVELOPER HC BASIC METABOLIC PANEL Routine 07/15/2021 2:55 AM [employer] HR DEVELOPER HC CBC,AUTOMATED Routine 07/15/2021 2:55 AM [employer]OFT HR DEVELOPER POC GLUCOSE 07/14/2021 11:04 AM [employer] HR DEVELOPER HC HEMOGLOBIN A1C STAT 07/14/2021 6:45 AM [employer] HR DEVELOPER HC STAT 07/14/2021 LIPID-5:CHOL/TRG/HDL/LDL+ 6:45 AM [employer] HR DEVELOPER VLDL HC TROPONIN-I Routine 07/14/2021 5:56 AM [employer] HR DEVELOPER HC PHOSPHOROUS, SERUM Routine 07/14/2021 3:11 AM [employer] HR DEVELOPER HC MAGNESIUM Routine 07/14/2021 3:11 AM [employer] HR DEVELOPER HC BASIC METABOLIC PANEL Routine 07/14/2021 3:11 AM [employer] HR DEVELOPER HC CBC,AUTOMATED Routine 07/14/2021 3:11 AM [employer]LES[employer]FT HR DEVELOPER TRANSFUSE RBC'S STAT 07/14/2021 12:45 AM [employer] HR DEVELOPER TROPONIN-I Routine 07/14/2021 12:20 AM [employer] HR DEVELOPER MRA HEAD WO CONTRAST STAT 07/13/2021 10:54 PM [employer] HR DEVELOPER MRI HEAD WO CONTRAST STAT 07/13/2021 10:35 PM [employer] HR DEVELOPER HC BLOOD STAT 07/13/2021 GASES;(CALCULATED 02) 9:21 PM [employer]LES[employer]FT HR DEVELOPER HC LACTIC ACID(LACTATE) STAT 07/13/2021 9:21 PM [employer]OPLESOFT HR DEVELOPER HC CALCIUM IONIZED STAT 07/13/2021 9:21 PM PEOPLES[employer]FT HR DEVELOPER HC PHOSPHOROUS, SERUM STAT 07/13/2021 9:21 PM PEOPLESOFT HR DEVELOPER HC MAGNESIUM STAT 07/13/2021 9:21 PM [employer] HR DEVELOPER BASIC METABOLIC PANEL STAT 07/13/2021 9:21 PM PEOPLES[employer]FT HR DEVELOPER HC CBC,AUTOMATED STAT 07/13/2021 9:21 PM [employer] HR DEVELOPER TROPONIN-I 07/13/2021 6:01 PM [employer] HR DEVELOPER HC TROPONIN-I Routine 07/13/2021 12:17 PM [employer] HR DEVELOPER CT HEAD WO CONTRAST STAT 07/13/2021 11:54 AM [employer]OFT HR DEVELOPER 2D + DOPPLER ECHO W/ GILDA 07/13/2021 CONTRAST 8:00 AM [employer] HR DEVELOPER CHEST SINGLE VIEW GILDA 07/13/2021 7:13 AM [employer]LESOFT HR DEVELOPER TROPONIN-I Routine 07/13/2021 5:52 AM [employer]LESOFT HR DEVELOPER CHEST SINGLE VIEW STAT 07/13/2021 3:33 AM [employer] HR DEVELOPER HC AMMONIA Routine 07/13/2021 3:00 AM [employer] HR DEVELOPER CBC Routine 07/13/2021 2:42 AM [employer] HR DEVELOPER HC BLOOD STAT 07/13/2021 GASES;(CALCULATED 02) 2:32 AM [employer] HR DEVELOPER TRANSFUSE PLASMA (FFP) STAT 07/13/2021 2:18 AM [employer]FT HR DEVELOPER HC TEG W KAOLIN R Routine 07/13/2021 ACTIVATED CLOTTING TIME 1:15 AM [employer]LESOFT HR DEVELOPER HC TROPONIN-I Add on 07/13/2021 1:15 AM PEOPLESOFT HR DEVELOPER HC LACTIC ACID(LACTATE) GILDA 07/13/2021 1:15 AM [employer]LESOFT HR DEVELOPER HC CALCIUM IONIZED Routine 07/13/2021 1:15 AM [employer]FT HR DEVELOPER HC PHOSPHOROUS, SERUM Routine 07/13/2021 1:15 AM [employer]FT HR DEVELOPER HC MAGNESIUM Routine 07/13/2021 1:15 AM PEOPLESOFT HR DEVELOPER HC CBC,AUTOMATED Routine 07/13/2021 1:15 AM PEOPLESOFT HR DEVELOPER HC BASIC METABOLIC PANEL Routine 07/13/2021 1:15 AM [employer]FT HR DEVELOPER TRANSFUSE PLASMA (FFP) STAT 07/13/2021 12:23 AM [employer] HR DEVELOPER PREPARE PLASMA (FFP) STAT 07/13/2021 12:11 AM [employer]FT HR DEVELOPER TRANSFUSE CRYOPRECIPITATE STAT 07/12/2021 11:18 PM [employer] HR DEVELOPER TRANSFUSE APHERESIS STAT 07/12/2021 PLATELETS 11:17 PM [employer] HR DEVELOPER TRANSFUSE RBC'S STAT 07/12/2021 11:04 PM [employer] HR DEVELOPER CBC STAT 07/12/2021 10:50 PM [employer] HR DEVELOPER PREPARE APHERESIS Routine 07/12/2021 PLATELETS 10:20 PM [employer] HR DEVELOPER PREPARE CRYOPRECIPITATE STAT 07/12/2021 9:55 PM [employer] HR DEVELOPER TRANSFUSE RBC'S STAT 07/12/2021 9:40 PM [employer] HR DEVELOPER HC TEG W KAOLIN R STAT 07/12/2021 ACTIVATED CLOTTING TIME 9:15 PM [employer] HR DEVELOPER HC CALCIUM IONIZED STAT 07/12/2021 9:15 PM [employer] HR DEVELOPER HC PHOSPHOROUS, SERUM STAT 07/12/2021 9:15 PM [employer] HR DEVELOPER HC MAGNESIUM STAT 07/12/2021 9:15 PM [employer] HR DEVELOPER HC COMPREHENSIVE STAT 07/12/2021 METABOLIC PANEL 9:15 PM [employer] HR DEVELOPER HC CBC,AUTOMATED STAT 07/12/2021 9:15 PM [employer] HR DEVELOPER POC GLUCOSE 07/12/2021 8:51 PM [employer] HR DEVELOPER HC SODIUM, POC 07/12/2021 8:50 PM [employer] HR DEVELOPER HC POTASSIUM, POC 07/12/2021 8:50 PM [employer] HR DEVELOPER HC HEMATOCRIT POC 07/12/2021 8:50 PM [employer] HR DEVELOPER HC BLOOD GAS, POC 07/12/2021 8:50 PM [employer] HR DEVELOPER COLOSTOMY/ SKIN LEVEL 07/12/2021 Malignant neopl asm of CECOSTOMY 12:29 PM [employer] HR DEVELOPER urinary bladder, unspecified site (HCC) HC ABO GROUP STAT 07/12/2021 11:45 AM [employer]OFT HR DEVELOPER TELEMETRY STRIPS-SCAN 07/12/2021 12:00 AM [employer] HR DEVELOPER TELEMETRY STRIPS-SCAN 07/12/2021 12:00 AM [employer] HR DEVELOPER TELEMETRY STRIPS-SCAN 07/12/2021 12:00 AM PE[employer]FT HR DEVELOPER ECG-SCAN 07/12/2021 12:00 AM [employer] HR DEVELOPER ECG-SCAN 07/12/2021 12:00 AM [employer] HR DEVELOPER HC COMPREHENSIVE Routine 07/09/2021 Malignant barney plasm of METABOLIC PANEL 9:19 AM [employer] HR DEVELOPER overlapping sites o f bladder (HCC) HC CBC W/ AUTOMATED DIFF Routine 07/09/2021 Malig nant neoplasm of 9:19 AM [employer] HR DEVELOPER overlapping sites of bladder (HCC) CT CHEST EXTERNAL IMAGING Routine 06/24/2021 12:05 AM [employer]OP[employer]OFT HR DEVELOPER CT ABD/PEL EXTERNAL Routine 06/24/2021 IMAGING 12:00 AM [employer]OFT HR DEVELOPER HC MAGNESIUM Routine 04/30/2021 5:31 AM [employer]OFT HR DEVELOPER HC PHOSPHOROUS, SERUM Routine 04/30/2021 5:31 AM [employer]OFT HR DEVELOPER HC BASIC METABOLIC PANEL Routine 04/30/2021 5:31 AM [employer]OFT HR DEVELOPER HC CBC,AUTOMATED Routine 04/30/2021 5:31 AM [employer]OFT HR DEVELOPER CT ABD/PELV WO CONTRAST Routine 04/30/2021 3:52 AM [employer]OFT HR DEVELOPER FLUORO MOBILE IN OR Routine 04/29/2021 9:33 AM [employer]OFT HR DEVELOPER HC STONE ANALYSIS Routine 04/29/2021 Kidney stone (INFRARED) 9:15 AM [employer] HR DEVELOPER CYSTOURETHROSCOPY WITH 04/29/2021 Kidney stone URETEROSCOPY AND/ OR 7:28 AM [employer]OFT HR DEVELOPER PYELOSCOPY - WITH REMOVAL/ MANIPULATION CALCULUS PERCUTANEOUS PLACEMENT 04/29/2021 Kidney stone NEPHROSTOMY CATHETER WITH 7:28 AM [employer]FT HR DEVELOPER NEPHROSTOGRAM/ URETEROGRAM/ IMAGE-GUIDANCE PERCUTANEOUS 04/29/2021 Kidney stone NEPHROSTOLITHOTOMY/ 7:28 AM [employer] HR DEVELOPER PYELOSTOLITHOTOMY - GREATER THAN 2 CM HC MAGNESIUM Routine 04/29/2021 3:55 AM [employer]OFT HR DEVELOPER HC PHOSPHOROUS, SERUM Routine 04/29/2021 3:55 AM [employer]OFT HR DEVELOPER HC BASIC METABOLIC PANEL Routine 04/29/2021 3:55 AM [employer]OFT HR DEVELOPER HC CBC,AUTOMATED Routine 04/29/2021 3:55 AM [employer]LESOFT HR DEVELOPER CULTURE-URINE STAT 04/28/2021 W/SENSITIVITY 5:40 PM [employer] HR DEVELOPER TYPE & CROSSMATCH Routine 04/28/2021 3:58 PM [employer]FT HR DEVELOPER HC COMPREHENSIVE STAT 04/28/2021 METABOLIC PANEL 3:58 PM [employer]FT HR DEVELOPER HC CBC W/ AUTOMATED DIFF STAT 04/28/2021 3:58 PM [employer]OFT HR DEVELOPER IR NEPHROSTOMY TUBE Routine 04/28/2021 Kidney sto ne PLACEMENT 12:46 PM [employer]FT HR DEVELOPER TELEMETRY STRIPS-SCAN 04/28/2021 12:00 AM [employer] HR DEVELOPER TELEMETRY STRIPS-SCAN 04/28/2021 12:00 AM [employer]FT HR DEVELOPER from Last 3 Months Results * CT ABD/PEL EXTERNAL IMAGING (07/26/2021 12:05 AM [employer]FT HR DEVELOPER) Only the most recent of 2 results within the time period is included. Modality Anatomical Region Laterality Computed Radiography Specimen Narrative Scheduling, Silent - 07/27/2021 11:06 AM [employer] HR DEVELOPER This order has been auto finalized and does not contain a result. * GENERAL RAD ABDOMEN EXTERNAL IMAGING (07/26/2021 12:00 AM [employer]OFT HR DEVELOPER) Modality Anatomical Region Laterality Computed Radiography Specimen Narrative Scheduling, Silent - 07/27/2021 11:05 AM [employer] HR DEVELOPER This order has been auto finalized and does not contain a result. * (ABNORMAL) CBC (07/20/2021 8:17 AM [employer]FT HR DEVELOPER) Only the most recent of 11 results [...] P dg Number [facility] [address] [place] [address] * PHOSPHORUS (07/19/2021 2:42 AM [employer]FT HR DEVELOPER) Only the most recent of 10 results within the time period is included. Phosphorus 3.4 2.0 - 4.5 MG/DL [facility] Specimen Blood (substance) Performing Organization Address [facility] P dg Number [facility] [address] [place] [address] * MAGNESIUM (07/19/2021 2:42 AM [employer]FT HR DEVELOPER) Only the most recent of 10 results within the time period is included. Magnesium 1.9 1.6 - 2.6 mg/dL [facility] Specimen Blood (substance) Performing Organization Address [facility] P dg Number [facility] [address] [phone] * (ABNORMAL) BASIC METABOLIC PANEL (07/19/2021 2:42 AM [employer]FT HR DEVELOPER) Only the most recent of 9 results within the time period is included. Sodium 137 137 - 147 MMOL/L [facility] [...] equation Specimen Blood (substance) Performing Organization Address [facility] P dg Number [facility] [address] [place] [address] * PV CAROTID ARTERY DUPLEX SCAN (07/15/2021 9:04 AM [employer]FT HR DEVELOPER) LEFT CCA DIST 0.83 m/s OTHER OUTSIDE [...] ECHO PV Leisa Frias, Student OTHER OUTSIDE SECOND HELPER LAB Cardiology Sherri Epi[employer] OTHER OUTSIDE Ultrasound LAB Machine RIGHT ICA/CCA 0.95 m/s OTHER OUTSIDE SYS LAB LEFT ICA/CCA 0.92 m/s OTHER OUTSIDE SYS LAB Modality Anatomical Region Laterality Ultrasound Specimen Narrative OTHER OUTSIDE LAB - 07/15/2021 10:14 AM [employer]FT HR DEVELOPER 1. Minimal atheromatous changes visualized in bilateral common and internal carotid arteries without hemodynamically significant (>50%) stenosis. 2. There is normal antegrade flow in tahmina ateral vertebral arteries 3. No evidence of proximal subclavian st enosis bilaterally No prior studies available for comparison. Performing Organization Address City/State/ZIP Code P dg Number OTHER OUTSIDE LAB * (ABNORMAL) POC GLUCOSE (07/14/2021 11:04 AM PEOP[employer]OFT HR DEVELOPER) Only the most recent of 2 results within the time period is included. Glucose, POC 118 (H) 70 - 100 MG/DL [facility] Specimen Performing Organization Address City/State/ZIP Code P dg Number MAIN LAB [address] [place] [address] * HEMOGLOBIN A1C (07/14/2021 6:45 AM [employer]OPLESOFT HR DEVELOPER) Hemoglobin A1C 5.6 4.0 - 6.0 % MAIN LAB Comment: The ADA recommends that most patients with type 1 and type 2 diabetes maintain an A1c level <7%. Specimen Blood (substance) Performing Organization Address [facility] P dg Number MAIN LAB [address] [place] [address] * (ABNORMAL) LIPID PROFILE (07/14/2021 6:45 AM PEOPLESOFT HR DEVELOPER) Cholesterol 87 <200 MG/DL [facility] Triglycerides 101 <150 MG/DL MAIN LAB HDL 31 (L) >40 MG/DL [facility] LDL 34 <100 mg/dL MAIN LAB VLDL 20 MG/DL [facility] Non HDL 56 MG/DL MAIN LAB Cholesterol Comment: Calculated non-HDL Cholesterol (non-HDL-C) indirectly measures LDL-C, Lp(a), IDL-C, and VLDL-C. It is a surrogate marker for Apoprotein B. Goal should be less than 130 mg/dL. Specimen Blood (substance) Performing Organization Address [facility] P dg Number [facility] [address] [place] [address] * (ABNORMAL) TROPONIN-I (07/14/2021 5:56 AM [employer]FT HR DEVELOPER) Only the most recent of 6 results within the time period is included. Pathologist [facility] Troponin-I 0.60 (H) 0.0 - 0.05 NG/ML [facility] Specimen Blood (substance) Performing Organization Address [facility] P dg Number MAIN LAB [address] [place] [address] * TRANSFUSE RBC'S (07/14/2021 2:52 AM [employer]FT HR DEVELOPER) Only the most recent of 3 results within the time period is included. Specimen Blood (substance) * MRA HEAD WO CONTRAST (07/13/2021 10:54 PM [employer]FT HR DEVELOPER) Modality Anatomical Region Laterality Magnetic Resonance Head Specimen Addenda Addendum by Maurice Parks MD on 07/14/2021 4:55 AM [employer]FT HR DEVELOPER Finalized by Maurice Parks M.D. on 07/14/2021 [...] Impressions RAD RESULTS - 07/14/2021 12:32 AM [employer]FT HR DEVELOPER MR brain: 1. Redemonstration of recent multifoca l cerebral and cerebellar infarcts with a dominant large left VIDEO CONTROL ENGINEER territory infarct. This appears represent a combination [...] MRA head: 1. Occlusion of the left VIDEO CONTROL ENGINEER at the leve l of the mid to distal P2 segment (corresponding to the large left VIDEO CONTROL ENGINEER territory infarct). 2. Otherwise patent major intracranial a rteries without focal stenosis. By my electronic signature, I attest that I have personally reviewed the images for this examination and formulated the interpretations and opinions expressed in this report Narrative [facility] RAD RESULTS - 07/14/2021 12:32 AM [employer]FT HR DEVELOPER EXAM: MRI AND MRA BRAIN HISTORY: left VIDEO CONTROL ENGINEER infarct, TECHNIQUE: Multiplanar and multisequence MR imaging of the head was performed. This was done without contrast. 3D upvk-vx-klqxvy images of the [place] was performed without contrast. MRA [...] effect. The major vascular flow-voids of the [place] and dural venous sinuses are unremarkable. Redemonstration of recent large left VIDEO CONTROL ENGINEER territory infarct. There are additional multifocal smaller [...] occlusion/loss of flow void within the left VIDEO CONTROL ENGINEER at the level of the mid to distal P2 segment. Portions of the left P3 and P4 segments also show absent flow voids. The anterior, middle, and right posterior cerebral arteries are patent without focal narrowing. No aneurysm or arteriovenous malformation is identified. Procedure Note Maurice Parks MD - 07/14/2021 EXAM: MRI AND MRA BRAIN HISTORY: left VIDEO CONTROL ENGINEER infarct, TECHNIQUE: Multiplanar and multisequence MR imaging of the head was performed. This was done without contrast. 3D mimt-lq-nfhmnm images of the [place] was performed without contrast. MRA [...] effect. The major vascular flow-voids of the [place] and dural venous sinuses are unremarkable. Redemonstration of recent large left VIDEO CONTROL ENGINEER territory infarct. There are additional multifocal smaller [...] occlusion/loss of flow void within the left VIDEO CONTROL ENGINEER at the level of the mid to distal P2 segment. Portions of the left P3 and P4 segments also show absent flow voids. The anterior, middle, and right posterior cerebral arteries are patent without focal narrowing. No aneurysm or arteriovenous malformation is identified. IMPRESSION MR brain: 1. Redemonstration of recent multifocal cerebral and cerebellar infarcts with a dominant large left VIDEO CONTROL ENGINEER territory infarct. This appears represent a combination [...] MRA head: 1. Occlusion of the left VIDEO CONTROL ENGINEER at the leve l of the mid to distal P2 segment (corresponding to the large left VIDEO CONTROL ENGINEER territory infarct). 2. Otherwise patent major intracranial a rteries without focal stenosis. By my electronic signature, I attest that I have personally reviewed the images for this examination and formulated the interpretations and opinions expressed in this report Performing Organization Address City/State/ZIP Code P dg Number [facility] RESULTS * MRI HEAD WO CONTRAST (07/13/2021 10:35 PM [employer]FT HR DEVELOPER) Modality Anatomical Region Laterality Magnetic Resonance Head Specimen Addenda Addendum by Maurice Parks MD on 07/14/2021 4:55 AM [employer]FT HR DEVELOPER Finalized by Maurice Parks M.D. on 07/14/2021 [...] [facility] RAD RESULTS - 07/14/2021 12:32 AM [employer]FT HR DEVELOPER MR brain: 1. Redemonstration of recent multifoca l cerebral and cerebellar infarcts with a dominant large left VIDEO CONTROL ENGINEER territory infarct. This appears represent a combination [...] MRA head: 1. Occlusion of the left VIDEO CONTROL ENGINEER at the leve l of the mid to distal P2 segment (corresponding to the large left VIDEO CONTROL ENGINEER territory infarct). 2. Otherwise patent major intracranial a rteries without focal stenosis. By my electronic signature, I attest that I have personally reviewed the images for this examination and formulated the interpretations and opinions expressed in this report Narrative [facility] RAD RESULTS - 07/14/2021 12:32 AM [employer]OP[employer]OFT HR DEVELOPER EXAM: MRI AND MRA BRAIN HISTORY: left VIDEO CONTROL ENGINEER infarct, TECHNIQUE: Multiplanar and multisequence MR imaging of the head was performed. This was done without contrast. 3D tgfu-to-aprlmp images of the [place] was performed without contrast. MRA [...] effect. The major vascular flow-voids of the [place] and dural venous sinuses are unremarkable. Redemonstration of recent large left VIDEO CONTROL ENGINEER territory infarct. There are additional multifocal smaller [...] occlusion/loss of flow void within the left VIDEO CONTROL ENGINEER at the level of the mid to distal P2 segment. Portions of the left P3 and P4 segments also show absent flow voids. The anterior, middle, and right posterior cerebral arteries are patent without focal narrowing. No aneurysm or arteriovenous malformation is identified. Procedure Note Maurice Parks MD - 07/14/2021 EXAM: MRI AND MRA BRAIN HISTORY: left VIDEO CONTROL ENGINEER infarct, TECHNIQUE: Multiplanar and multisequence MR imaging of the head was performed. This was done without contrast. 3D hbys-us-lzvdmm images of the [place] was performed without contrast. MRA [...] effect. The major vascular flow-voids of the [place] and dural venous sinuses are unremarkable. Redemonstration of recent large left VIDEO CONTROL ENGINEER territory infarct. There are additional multifocal smaller [...] occlusion/loss of flow void within the left VIDEO CONTROL ENGINEER at the level of the mid to distal P2 segment. Portions of the left P3 and P4 segments also show absent flow voids. The anterior, middle, and right posterior cerebral arteries are patent without focal narrowing. No aneurysm or arteriovenous malformation is identified. IMPRESSION MR brain: 1. Redemonstration of recent multifocal cerebral and cerebellar infarcts with a dominant large left VIDEO CONTROL ENGINEER territory infarct. This appears represent a combination [...] MRA head: 1. Occlusion of the left VIDEO CONTROL ENGINEER at the leve l of the mid to distal P2 segment (corresponding to the large left VIDEO CONTROL ENGINEER territory infarct). 2. Otherwise patent major intracranial a rteries without focal stenosis. By my electronic signature, I attest that I have personally reviewed the images for this examination and formulated the interpretations and opinions expressed in this report Performing Organization Address City/[facility]/ZIP Code P dg Number K[facility] RAD RESULTS * LACTIC ACID(LACTATE) (07/13/2021 9:21 PM PEOPLESOFT HR DEVELOPER) Only the most recent of 2 results within the time period is included. Lactic Acid 0.9 0.5 - 2.0 MMOL/L [facility] Specimen Blood (substance) Performing Organization Address [facility] P dg Number [facility] MAIN LAB [address] [place] [address] * BLOOD GASES, ARTERIAL (07/13/2021 9:21 PM PEOPLESOFT HR DEVELOPER) Only the most recent of 2 results within the time period is included. pH-Arterial 7.43 7.35 - 7.45 [facility] pCO2-Arterial 40 35 - 45 MMHG [facility] pO2-Arterial 89 80 - 100 MMHG [facility] Base 2.1 MMOL/L [facility] Excess-Arterial O2 Sat-Arterial 97.3 95 - 99 % [facility] Bicarbonate-ART 26.3 21 - 28 MMOL/L [facility] -Daniel Specimen Blood, arterial - Blood (substance) Performing Organization Address [facility] P dg Number [facility] [address] [place] [address] * IONIZED CALCIUM (07/13/2021 9:21 PM PEOPLESOFT HR DEVELOPER) Only the most recent of 3 results within the time period is included. Ionized Calcium 1.17 1.0 - 1.3 MMOL/L [facility] Specimen Blood (substance) Performing Organization Address [facility] P dg Number [facility] [address] [place] [address] * CT HEAD WO CONTRAST (07/13/2021 11:54 AM PEOPLESOFT HR DEVELOPER) Modality Anatomical Region Laterality Computed Tomography Head Specimen Impressions [facility] RESULTS - 07/13/2021 12:16 PM PEOPLESOFT HR DEVELOPER 1. Multifocal acute to subacute appear ing bilateral cerebral and cerebellar infarcts (presumably embolic in etiology) with a dominant moderate to large left VIDEO CONTROL ENGINEER territory infarct. 2. No evidence of hemorrhagic conversi on, midline shift, or herniation. Findings were discussed with Dr. Garcia by myself via telephone at 12:13 PM on 07/13/2021. Finalized by Dwaine Vo DO on 07/13/2021 12:16 PM. Dictated by Dwaine Vo DO on 07/13/2021 12:04 PM. Narrative [facility] RESULTS - 07/13/2021 12:16 PM PEOPLESOFT HR DEVELOPER EXAM: CT HEAD HISTORY: Rule out stroke, visual difficulties. TECHNIQUE: Multiple contiguous axial images were obtained of the brain without intravenous contrast. COMPARISON: None. FINDINGS: Moderate to large focal area of parenchymal hypodensity, pardo-white matter dedifferentiation, and sulcal compression in the left posterior mesial temporal- occipital VIDEO CONTROL ENGINEER territory with additional smaller foci of parenchymal hypodensity throughout the bilateral cerebral hemispheres (notably the right caudate, left frontal and parietal cortices, and posterior right occipital lobe), compatible with acute to subacute infarcts. There are also several small age-indeterminate bilateral cerebellar infarcts, the majority of which appear recent. Localize cerebral mass effect associated with the dominant left VIDEO CONTROL ENGINEER territory infarct. No evidence of acute intracranial [...] in the left posterior mesial temporal- occipital VIDEO CONTROL ENGINEER territory with additional smaller foci of parenchymal hypodensity throughout the bilateral cerebral hemispheres (notably the right caudate, left frontal and parietal cortices, and posterior right occipital lobe), compatible with acute to subacute infarcts. There are also several small age-indeterminate bilateral cerebellar infarcts, the majority of which appear recent. Localize cerebral mass effect associated with the dominant left VIDEO CONTROL ENGINEER territory infarct. No evidence of acute intracranial [...] with a dominant moderate to large left VIDEO CONTROL ENGINEER territory infarct. 2. No evidence of hemorrhagic [...] DOPPLER ECHO W/ CONTRAST (07/13/2021 8:00 AM PEOPLESOFT HR DEVELOPER) IVS 0.85 0.6 - 1.0 cm OTHER [...] 34 OTHER OUTSIDE Index LAB Cardiology Siemens [id number] OTHER OUTSIDE Ultrasound LAB Machine Left Ventricle [...] OTHER OUTSIDE LAB - 07/13/2021 8:28 AM PEOPLESOFT HR DEVELOPER Left Ventricle: The left ventricular size is [...] * CHEST SINGLE VIEW (07/13/2021 7:13 AM PEOPLESOFT HR DEVELOPER) Only the most recent of 2 results within the time period is included. Modality Anatomical Region Laterality Computed Radiography Chest Specimen Impressions [facility] RESULTS - 07/13/2021 9:23 AM PEOPLESOFT HR DEVELOPER 1. Persistent tiny lucency within the ri ght lung apex that is suggestive of a tiny pneumothorax. Follow-up inspiration and expiration chest x-ray 2. Unchanged small right pleural effusio n and right lung base consolidation. Finalized by Bernard Sheikh M.D. on 07/13/2021 9:23 AM. Dictated by Bernard Sheikh M.D. on 07/13/2021 9:18 AM. Narrative [facility] RESULTS - 07/13/2021 9:23 AM PEOPLESOFT HR DEVELOPER CHEST SINGLE VIEW Clinical Indication: R/o PTX. [...] on 07/13/2021 9:18 AM. Performing Organization Address City/[facility] Code P dg Number [facility] RESULTS * TRANSFUSE PLASMA (FFP) (07/13/2021 3:12 AM PEOPLESOFT HR DEVELOPER) Only the most recent of 2 results within the time period is included. * AMMONIA (07/13/2021 3:00 AM PEOPLESOFT HR DEVELOPER) Ammonia 34 9 - 35 MCMOL/L [facility] Specimen Blood (substance) Performing Organization Address [facility] P dg Number [facility] [address] [place] [address] * TEG WITH KAOLIN (07/13/2021 1:15 AM PEOPLESOFT HR DEVELOPER) Only the most recent of 2 results within the time period is included. MA Kaolin 60.6 >49.9 MM REFERENCE LAB R Kaolin 3.1 <9.1 MIN REFERENCE LAB RK Kaolin 4.5 <12.1 MIN REFERENCE LAB K Kaolin 1.4 <3.1 MIN REFERENCE LAB Angle Kaolin 70.2 >54.9 DEG REFERENCE LAB Lysis30 0.0 <8.1 % REFERENCE LAB Specimen Blood (substance) Performing Organization Address [facility] P dg Number REFERENCE LAB REFERENCE LAB See results for address. * TRANSFUSE CRYOPRECIPITATE (07/13/2021 12:34 AM PEOPLESOFT HR DEVELOPER) * PREPARE PLASMA (FFP) (07/13/2021 12:11 AM PEOPLESOFT HR DEVELOPER) Units Ordered 2 [facility] Unit Number [id number] [facility] Blood Component THAWED PLASMA [facility] Type Unit Division 00 [facility] Status OF Unit TRANSFUSED [facility] ISSUE DATE TIME [facility] PRODUCT CODE [id number] [facility] BLOOD TYPE B POS [facility] CODING STATUS 7300 K[facility] LAB BLOOD [facility] EXPIRATION DATE Transfusion OK TO TRANSFUSE [facility] Status Unit Number [id number] [facility] Blood Component APHERESIS PLASMA THAWED [facility] Type Unit Division 00 [facility] Status OF Unit TRANSFUSED [facility]IN LAB ISSUE DATE TIME [facility] PRODUCT CODE [id number] [facility] BLOOD TYPE B POS [facility] CODING STATUS 7300 [facility] BLOOD [facility] EXPIRATION DATE Transfusion OK TO TRANSFUSE [facility] Status Specimen Other (Specify) Performing Organization Address City/[facility]/ZIP [facility] P dg Number [facility] [address] [place] [address] * TRANSFUSE APHERESIS PLATELETS (07/13/2021 12:07 AM PEOPLESOFT HR DEVELOPER) * PREPARE APHERESIS PLATELETS (07/12/2021 10:20 PM PEOPLESOFT HR DEVELOPER) Units Ordered 1 [facility] Unit Number [id number] [facility] Blood Component APHERESIS PLT,LEUKO REDUCED, [facility]IN [facility] Type BACTERIAL MONITOR 7D, IRRADIATED,2ND CONT Unit Division 00 [facility] Status OF Unit TRANSFUSED [facility] ISSUE DATE TIME [facility] PRODUCT CODE [id number] [facility] BLOOD TYPE A NEG [facility] CODING STATUS 0600 [facility] BLOOD [id number] [facility] EXPIRATION DATE Transfusion OK TO TRANSFUSE [facility] Status Specimen Other (Specify) Performing Organization Address City/[facility]/ZIP [facility] P dg Number [facility] [address] [place] [address] * PREPARE CRYOPRECIPITATE (07/12/2021 9:55 PM PEOPLESOFT HR DEVELOPER) Units Ordered 1 [facility] Unit Number [id number] [facility] Blood Component CRY 5 POOLED [facility] Type Unit Division 00 [facility] Status OF Unit TRANSFUSED [facility] LAB ISSUE DATE TIME [facility] PRODUCT CODE [id number] [facility] BLOOD TYPE O POS [facility] CODING STATUS 5100 [facility] BLOOD [id number] [facility] EXPIRATION DATE Transfusion OK TO TRANSFUSE [facility] Status Specimen Other (Specify) Performing Organization Address City/State/ZIP Code P dg Number [facility] [address] [place] [address] * (ABNORMAL) COMPREHENSIVE METABOLIC PANEL (07/12/2021 9:15 PM PEOPLESOFT HR DEVELOPER) Only the most recent of 3 results [...] equation Specimen Blood (substance) Performing Organization Address City/[facility]/ZIP Code P dg Number [facility] [address] [place] [address] * (ABNORMAL) POC BLOOD GAS ARTERIAL (07/12/2021 8:50 PM PEOPLESOFT HR DEVELOPER) PH-ART-POC 7.39 7.35 - 7.45 [facility] [id number] 32 (L) 35 - 45 MMHG [facility] PO2-ART-POC 103 (H) 80 - 100 MMHG [facility] Base 6.0 MMOL/L [facility] Def-ART-POC O2 Sat-ART-POC 98.0 95 - 99 % [facility] Bicarbonate-ART 19.1 (L) 21 - 28 MMOL/L [facility] -POC Specimen Performing Organization Address City/[facility]/ZIP Code P dg Number [facility] [address] [place] [address] * (ABNORMAL) POC SODIUM (07/12/2021 8:50 PM PEOPLESOFT HR DEVELOPER) Sodium-POC 136 (L) 137 - 147 MMOL/L [facility] Specimen Performing Organization Address City/[facility]/ZIP Code P dg Number MAIN LAB [address] [place] [address] * POC POTASSIUM (07/12/2021 8:50 PM PEOPLESOFT HR DEVELOPER) Potassium-POC 5.0 3.5 - 5.1 MMOL/L MAIN LAB Specimen Performing Organization Address [facility] Code P dg Number [facility] [address] [place] [address] * (ABNORMAL) POC HEMATOCRIT (07/12/2021 8:50 PM PEOPLESOFT HR DEVELOPER) Hemoglobin POC 7.8 (L) 13.5 - 16.5 GM/DL MAIN LAB Hematocrit POC 23.0 (L) 40 - 50 % [facility] Specimen Performing Organization Address City/[facility] Code P dg Number [facility] [address] [place] [address] * TYPE & CROSSMATCH (07/12/2021 11:45 AM PEOPLESOFT HR DEVELOPER) Only the most recent of 2 results within the time period is included. Units Ordered 3 MAIN LAB Crossmatch 07/15/2021,2359 [facility] Expires Record Check FOUND MAIN LAB ABO/RH(D) O NEG MAIN LAB Antibody Screen NEG MAIN LAB Electronic YES MAIN LAB Crossmatch Unit Number [id number] MAIN LAB Blood Component RBC,ADSOL,LEUKO REDUCED,2ND KU MAIN L AB Type CONT. Unit Division 00 [facility] MAIN LAB Status OF Unit TRANSFUSED [facility]IN LAB ISSUE DATE TIME MAIN LAB PRODUCT CODE [id number] MAIN LAB BLOOD TYPE O NEG [facility] CODING STATUS 9500 [facility]IN LAB BLOOD [id number] [facility] EXPIRATION DATE Transfusion OK TO TRANSFUSE [facility] Status Crossmatch COMPATIBLE,ELECTRONIC [facility] Result Unit Number [id number] [facility]IN [facility] Blood Component RBC,ADSOL,LEUKO REDUCED,2ND KU MAIN L AB Type CONT. Unit Division 00 [facility]IN LAB Status OF Unit TRANSFUSED [facility]U MAIN LAB ISSUE DATE TIME [facility] MAIN LAB PRODUCT CODE [id number] [facility] MAIN LAB BLOOD TYPE O NEG [facility]IN LAB CODING STATUS 9500 [facility]IN LAB BLOOD [id number] [facility]IN LAB EXPIRATION DATE Transfusion OK TO TRANSFUSE [facility]IN [facility] Status Crossmatch COMPATIBLE,ELECTRONIC [facility] Result Unit Number [id number] [facility] Blood Component RBC,ADSOL,LEUKO REDUCED,2ND KU MAIN L AB Type CONT. Unit Division 00 [facility]IN LAB Status OF Unit TRANSFUSED [facility] MAIN LAB ISSUE DATE TIME [facility] MAIN LAB PRODUCT CODE [id number] [facility] MAIN LAB BLOOD TYPE O NEG [facility]IN LAB CODING STATUS 9500 [facility] MAIN LAB BLOOD [id number] K[facility] LAB EXPIRATION DATE Transfusion OK TO TRANSFUSE [facility]IN [facility] Status Crossmatch COMPATIBLE,ELECTRONIC [facility] Result Specimen Performing Organization Address City/State/ZIP Code P dg Number [facility] [address] [place] [address] * TELEMETRY STRIPS-SCAN (07/12/2021 12:00 AM PEOPLESOFT HR DEVELOPER) Narrative 07/12/2021 12:00 AM PEOPLESOFT HR DEVELOPER Ordered by an unspecified provider. * TELEMETRY STRIPS-SCAN (07/12/2021 12:00 AM PEOPLESOFT HR DEVELOPER) Narrative 07/12/2021 12:00 AM PEOPLESOFT HR DEVELOPER Ordered by an unspecified provider. * TELEMETRY STRIPS-SCAN (07/12/2021 12:00 AM PEOPLESOFT HR DEVELOPER) Narrative 07/12/2021 12:00 AM PEOPLESOFT HR DEVELOPER Ordered by an unspecified provider. * ECG-SCAN (07/12/2021 12:00 AM PEOPLESOFT HR DEVELOPER) Narrative 07/12/2021 12:00 AM PEOPLESOFT HR DEVELOPER Ordered by an unspecified provider. * ECG-SCAN (07/12/2021 12:00 AM PEOPLESOFT HR DEVELOPER) Narrative 07/12/2021 12:00 AM PEOPLESOFT HR DEVELOPER Ordered by an unspecified provider. * (ABNORMAL) CBC AND DIFF (07/09/2021 9:19 AM PEOPLESOFT HR DEVELOPER) Only the most recent of 2 results [...] Code P dg Number [facility] [address] [place] [address] * CT CHEST EXTERNAL IMAGING (06/24/2021 12:05 AM PEOPLESOFT HR DEVELOPER) Modality Anatomical Region Laterality Computed Radiography Specimen Narrative Scheduling, Silent - 07/20/2021 12:35 PM PEOPLESOFT HR DEVELOPER This order has been auto finalized and does not contain a result. * CT ABD/PELV WO CONTRAST (04/30/2021 3:52 AM PEOPLESOFT HR DEVELOPER) Modality Anatomical Region Laterality Computed Tomography Abdomen, Pelvis Specimen Impressions [facility] RESULTS - 04/30/2021 10:35 AM PEOPLESOFT HR DEVELOPER 1. Development of moderate to severe pro [...] [facility] RAD RESULTS - 04/30/2021 10:35 AM PEOPLESOFT HR DEVELOPER CT ABDOMEN AND PELVIS Clinical Indication: Assess [...] FLUORO MOBILE IN OR (04/29/2021 9:33 AM PEOPLESOFT HR DEVELOPER) Modality Anatomical Region Laterality Radio Fluoroscopy Specimen Narrative [facility] RAD - 04/29/2021 9:34 AM PEOPLESOFT HR DEVELOPER This order has been auto finalized and does not contain a result. Performing Organization Address City/State/ZIP Code P dg Number [facility] * STONE ANALYSIS (04/29/2021 9:15 AM PEOPLESOFT HR DEVELOPER) Stone Source Passed Stone REFERENCE LAB [facility], [address] [facility], [place] [address] Interpretation 90% Calcium oxalate REFERENCE LAB monohydrate 10% Calcium phosphate (apatite) [facility], [facility] [facility], [place] [address] Specimen Tissue specimen (specimen) - Kidney, Left Performing Organization Address City/State/ZIP Code P dg Number REFERENCE LAB REFERENCE LAB See results for address. * CULTURE-URINE W/SENSITIVITY (04/28/2021 5:40 PM PEOPLESOFT HR DEVELOPER) Battery Name URINE CULTURE [facility] Report Status FINAL 04/29/2021 [facility] Specimen URINE NEPHROSTOMY [facility] Description Special No special requests [facility] Requests Culture <10,000 CFU/ml [facility]IN LAB mixed contaminants Specimen Urine Performing Organization Address City/State/ZIP Code P dg Number [facility] MAIN [facility] [address] [place] [address] * IR NEPHROSTOMY TUBE PLACEMENT (04/28/2021 12:46 PM PEOPLESOFT HR DEVELOPER) Modality Anatomical Region Laterality X-Ray Angiography Specimen Impressions [facility] RESULTS - 04/28/2021 3:12 PM PEOPLESOFT HR DEVELOPER Successful placement of left percutaneous nephrostomy tube [...] [facility] RAD RESULTS - 04/28/2021 3:12 PM PEOPLESOFT HR DEVELOPER 1. PERCUTANEOUS NEPHROSTOMY TUBE PLACEMENT UNDER ULTRASOUND AND FLUOROSCOPIC GUIDANCE 2. ANTEGRADE NEPHROSTOGRAM INDICATION: Needing percutaneous access to left renal collecting system for lithotripsy GRAPHIC DESIGN PROFESSOR: Martin Llanes M.D. and Shawn Hall M.D. MEDICATIONS: Fentanyl and Versed CATHETER: 8 Welsh Percuteneous Nephrostomy Tube TECHNIQUE/FINDINGS: The risks, benefits, [...] and the needle exchanged for a 6 Welsh transitional dilator which was advanced into the mid ureter. The inner portion of the dilator and wire were removed and an Amplatz wire was advanced through the catheter into the mid ureter. The catheter was removed over the wire. An 8 Welsh nephrostomy tube was advanced over the wire and positioned using fluoroscopy. The Blunt loop was formed and locked in the [...] to left renal collecting system for lithotripsy GRAPHIC DESIGN PROFESSOR: Martin Llanes M.D. and Shawn Hall M.D. MEDICATIONS: Fentanyl and Versed CATHETER: 8 Welsh Percuteneous Nephrostomy Tube TECHNIQUE/FINDINGS: The risks, benefits, [...] and the needle exchanged for a 6 Welsh transitional dilator which was advanced into the mid ureter. The inner portion of the dilator and wire were removed and an Amplatz wire was advanced through the catheter into the mid ureter. The catheter was removed over the wire. An 8 Welsh nephrostomy tube was advanced over the wire and positioned using fluoroscopy. The Blunt loop was formed and locked in the renal pelvis. Contrast was injected to confirm location. The catheter was sutured with 2-0 Ethilon to the flank and attached to gravity drainage. The procedure was well tolerated, and the patient discharged to the recovery area in satisfactory condition.. IMPRESSION Successful placement of left percutaneous nephrostomy tube with access to the mid pole. IShawn M.D, the attending radiologist, was present for [...] RESULTS * TELEMETRY STRIPS-SCAN (04/28/2021 12:00 AM PEOPLESOFT HR DEVELOPER) Narrative 04/28/2021 12:00 AM PEOPLESOFT HR DEVELOPER Ordered by an unspecified provider. * TELEMETRY STRIPS-SCAN (04/28/2021 12:00 AM PEOPLESOFT HR DEVELOPER) Narrative 04/28/2021 12:00 AM PEOPLESOFT HR DEVELOPER Ordered by an unspecified provider. 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
--- OUTSIDE RECORDS SUMMARY | 2021-07-28 19:50 | XMS REPORT | Encounter Summary ---
[facility] Address Unknown Phone Unavailable Care Team Providers Care Golf Ball Marker Name Role Phone Angelo Gordon MD PCP Bartolo Cornejo MD Unavailable Reason for Visit * Reason Onset Date Comments Scheduling 07/27/2021 Encounter Details Care Team Description Date Type Department Maurice Cao DO [address] [place] [address] Scheduling 07/27/2021 Telephone On[facility] [address] [facility] [address] Social History Date Tobacco Use Types Packs/Day Years Used Never Smoker Smokeless Tobacco: Never Used Comments Alcohol Use Standard Drinks/Week Not Currently 0 (1 standard drink = 0.6 o z pure alcohol) Sex Assigned at Date Recorded Male 05/18/2020 12:22 PM IT QUALITY ANALYST Date Recorded COVID-19 Exposure Response 07/12/2021 11:38 AM IT QUALITY ANALYST In the last month, have you [...] Telephone Encounter - Mariya Ayala RN - 07/27/2021 8:40 AM IT QUALITY ANALYST Pt called today asking to r/s his 07/[address] Cao. I hav e moved him to 08/06 with Laina Cheney NP. She was ok with this. She is going to call Dr. Louie's office today and try and move that appt to the same day. [facility] and let his nurse know this change. Dr. Scott called last night and spoke to Dr. Cao, as pt has not been havin g a lot of ostomy output. She said they did CT scans (either 07/25 or 07/26). I have requested this to the cloud, as well as the report be faxed up. His said she isn't sure yet if Dr. Ruth will recommend more chemo for him , or to go to hospice. QUALITY ANALYST documented in this encounter Plan of [...] track (07/12/2021 Yes April Marie, 6:07 PM IT QUALITY ANALYST) RN Note: "To heal and recover, and get stronger, be as healthy as I can" documented as of this encounter Visit Diagnoses Not on filedocumented in this encounter Additional Health Concerns Noted Time Assessment 07/20/2021 8:48 AM IT QUALITY ANALYST A fall risk assessment has been complet ed for the patient documented as of this encounter Care Teams Start Date End Date Golf Ball Marker Relationship Specialty 05/17/20 Angelo Gordon MD PCP - General Internal [address] [facility] [address] [place] [id number] 05/17/20 Bartolo Cornejo MD Internal [address] [facility] [address] [place] [address] documented as of this encounter
--- OUTSIDE RECORDS SUMMARY | 2021-07-28 19:51 | XMS REPORT | Encounter Summary ---
Author Author [facility] Organization [facility] Address Unknown Phone Unavailable Care Team Providers [employer] Assistant Principal Name Role Phone Angelo Gordon MD PCP Bartolo Cornejo MD Unavailable Reason for Visit * Auth/Cert Diagnoses / Procedures Referred By Contact Referred To Conta ct Specialty Diagnoses Malignant neoplasm of urinary bladder, unspecified site (HCC) Malignant neoplasm of urinary bladder, unspecified site (HCC) [C67.9] Procedures OK COLOSTOMY/SKIN LEVEL CECOSTOMY COLOSTOMY/ SKIN LEVEL CECOSTOMY Referral ID Status Reason Start Date Expiration Visits Vi sits Date Requested Authorized [id number] 1 1 Encounter Details Care Team Description Date Type Department Kehinde Cao DO [address] [place] [address] EXPLORATORY LAPAROTOMY, DIVERTING LOOP C OLOSTOMY 07/12/2021 Surgery Operating Room: [address] [place] [address] Surgery Details Trauma Case? Date/Time [...] Contaminated Panel Surgeon Surgeon Role Service 1 Kehinde Cao DO Primary Surgery Oncology 1 Scott Garcia MD Resident - Assisting Surgery Oncology Social History Date Tobacco Use Types Packs/Day Years Used Never Smoker Smokeless Tobacco: Never Used Comments Alcohol Use Standard Drinks/Week Not Currently 0 (1 standard drink = 0.6 o z pure alcohol) Sex Assigned at Date Recorded Male 05/18/2020 12:22 PM ART CONSULTANT Date Recorded COVID-19 Exposure Response 07/12/2021 11:38 AM ART CONSULTANT In the last month, have you been in contact with No / Unsure someone who was confirmed or suspected to have Coronavirus / COVID-19? documented as of this encounter Last Filed Vital Signs Reading Time Taken Comments Vital Sign 145/91 07/12/2021 3:00 PM ART CONSULTANT Blood Pressure 57 07/12/2021 3:00 PM ART CONSULTANT Pulse 36.8 C (98.2 F) 07/12/2021 2:23 PM ART CONSULTANT Temperature - - Respiratory Rate 99% 07/12/2021 3:00 PM ART CONSULTANT Oxygen Saturation - - Inhaled Oxygen Concentration 64.8 kg (142 lb 12.8 oz) 07/12/2021 11:46 AM ART CONSULTANT Weight 172.7 cm (5' 8") 07/12/2021 11:46 AM ART CONSULTANT Height 21.72 07/15/2021 9:04 AM ART CONSULTANT Body Mass Index documented in this [...] * Chemo Ely - 07/20/2021 12:22 PM ART CONSULTANT Case Management Progress Note NAME:Chemo Jenkins DO B:1950 AGE: 71 y.o. ADMISSION DATE: 07/12/2021 DAYS ADMITTED: LOS: 8 days Todays Date: 07/20/2021 Plan Patient will DC to [facility] Interventions Support Info or Referral SW submitted referral for outpatient palliative care follow up at [facility] Discharge Planning Medication Needs Financial Legal Other [...] Services Address Phone Fax Patient [facility] [address] [facility] [address] [phone] Chemo Ely LMSW Voalte Pager: [phone] Office: [phone] CONSULTANT * Scott Garcia MD - 07/20/2021 12:22 PM ART CONSULTANT Physician Discharge Summary Name: Chemo Jenkins Date Of : 1950 Age: 71 years Admit date: 07/12/2021 Discharge date: 07/20/2021 12:22 PM Attending Physician: Dr. Kehinde Cao DO Service: Surgery-Onco logy - [id number] Physician Summary completed by: Scott Garcia MD Reason for hospitalization: Malignant neoplasm of urinary bladder, unspecified s ite (HCC); Colon obstr* Significant PMH: Medical History: Diagnosis Date Acid reflux did tx with zantac, now elevates pillows Arrhythmia PAF Arthritis Cancer (HCC) skin Hypertension Kidney stones Urothelial carcinoma (HCC) Allergies: Tegaderm, Erythromycin, and Readyprep chg [chlorhexidine gluconate] Admission Physical Exam notable for: Abdomen slightly distended, nontender, right lower quadrant ileal conduit pink a nd viable. Admission Lab/Radiology studies notable for: Results for orders placed or performed during the hospital encounter of 07/12/21 (from the past 24 hour(s)) CBC Result Value Ref Range White Blood Cells 11.0 4.5 - 11.0 K/UL RBC 3.82 (L) 4.4 - 5.5 M/UL Hemoglobin 11.3 (L) 13.5 - 16.5 GM/DL Hematocrit 34.8 (L) 40 - 50 % MCV 91.1 80 - 100 FL MCH 29.5 26 - 34 PG MCHC 32.4 32.0 - 36.0 G/DL RDW 15.0 11 - 15 % Platelet Count 297 150 - 400 K/UL MPV 8.0 7 - 11 FL Brief Hospital Course: The patient was admitted and the following issues were a ddressed during this hospitalization: (with pertinent details). 71-year-old male with metastatic bladder cancer status post cystectomy with ilea l conduit. He was seen in clinic and found to have obstructive symptoms likely due to pelvic metastasis. He was admitted and underwent exploratory laparotomy with diverting sigmoid loop colostomy. Intraoperatively there was noted to be d ense peritoneal disease with mesenteric tethering. Unfortunately his postoperat louis course was complicated by a large left-sided ELECTRIC INSTALLER stroke affecting his right sided motor function with associated visual deficits. He was not a candidate fo r thrombolytics or therapeutic anticoagulation and so he was placed on antiplate let and DVT prophylaxis. Additionally he was placed on high intensity statin. His neuro function waxed and waned during his stay. Palliative care was involve d to discuss prognosis of his malignancy with recent stroke. He was progressed through an inpatient stay and was discharged to a rehabilitation center. On dis charge he was tolerating a diet, having ostomy output. His physical capabilitie s were slowly declining which is expected with his prognosis however he was able to work daily with physical and occupational therapies. Condition at Discharge: Stable Discharge Diagnoses: Hospital Problems Active Problems * (Principal) Colon obstruction (HCC) ITA (acute kidney injury) (HCC) Acute ischemic stroke (HCC) Acute right hemiparesis (HCC) Homonymous hemianopia, right Hypovolemia Encephalopathy Moderate malnutrition (HCC) Acute ischemic left ELECTRIC INSTALLER stroke (HCC) Coagulopathy (HCC) Hypovolemic shock (HCC) NSTEMI, initial episode of care ([facility]) Principal Problem: Colon obstruction (HCC) Active Problems: ITA (acute kidney injury) (HCC) Acute ischemic stroke (HCC) Acute right hemiparesis (HCC) Homonymous hemianopia, right Hypovolemia Encephalopathy Moderate malnutrition (HCC) Acute ischemic left ELECTRIC INSTALLER stroke (HCC) Coagulopathy (HCC) Hypovolemic shock (HCC) NSTEMI, initial episode of care ([facility]) Surgical Procedures: Procedure(s) (LRB): EXPLORATORY LAPAROTOMY, DIVERTING LOOP COLOSTOMY (N/A) Significant Diagnostic Studies and Procedures: noted in brief hospital course Consults: CONSULT DIETITIAN CONSULT WOUND/OSTOMY TEAM NURSE CONSULT CARDIOLOGY PHYSICIAN CONSULT REHABILITATION MEDICINE PHYSICIAN CONSULT ADULT PALLIATIVE CARE PROVIDER Patient Disposition: Home Patient instructions/medications: Regular Diet You have no dietary restrictions. Please continue with a healthy balanced diet . Try to drink at least 64 ounces of water per day. Finish all 5 days of your nutrition shakes. Activity as Tolerated It is important to keep walking at least 3 times per day after you leave the spital. Moving around can help prevent blood clots, lung infection (pneumonia) and other problems. Gradually increasing the number of times you are up moving around will help you return to your normal activity level more quickly. You melody uld try to spend most of the day up walking or sitting in a chair unless you are sleeping. Driving Restrictions No driving while taking opioids (narcotics) pain medication. Lifting Restrictions Do not lift more than 10 pounds for 6 week(s). Sexual Activity Restrictions Please refrain from sexual activity until after follow-up appointment. Your nixon rgeon will tell you when it is safe for you to have sex at your appointment. Wound Care Keep wound clean and dry. Do not submerge under water. Ok to shower. Can cover wound with dry gauze if needed, otherwise keep open. If you have dermabond (lamine ar glue) on your incision sites, do not pick at it or try to remove. It will fa ll off by itself over the next 7 days. If you have adrianna, these will be remove d at your clinic appt. Report These Signs and Symptoms Call your doctor if you have any of the following symptoms: *Temperature over 101 F *Increased redness, tenderness, or swelling at the incision site *Excessive drainage from the incision *Drainage that smells bad *If the edges of your incision come apart *Severe abdominal pain with or without bloating *Frequent nausea and/or vomiting Questions About Your Stay If you have an emergency after discharge, call 9-1-1. For questions after discharge during business hours (8:00-4:00pm) call and ask for your surgeons nurse. For urgent questions after discharge after business hours, call [phone] and ask to have the provider certified low vision therapist for surgical oncology paged. Discharging attending physician: KEHINDE CAO [[id number]] APPOINTMENT REQUEST: Cancer Center- Hematology and/or Oncology ([place]) Please f/u with symptom management, plans to follow up with inpatient rehab pos t-discharge, then ongoing treatments. Can be seen in about a month. Thank you! Diagnosis: metastatic urothelial carcinoma Reason for outpatient clayton't request: Palliative care / symptom management Was patient seen in hospital by requested consult service? Yes Provider requesting to see: Rosio Time frame requested for the outpatient clayton't (provide range): Non-urgent, 1 mon is OK Pager # of the requesting provider if any questions? Protochips cell Current Discharge Medication List START taking these medications Details atorvastatin (LIPITOR) 40 mg tablet Take one tablet by mouth daily. Qty: 90 tablet, Refills: 3 PRESCRIPTION TYPE: No Print traMADoL (ULTRAM) 50 mg tablet Take one tablet by mouth every 8 hours as needed for Pain. Qty: 20 tablet, Refills: 0 PRESCRIPTION TYPE: No Print CONTINUE these medications which have been CHANGED or REFILLED Details acetaminophen (TYLENOL) 325 mg tablet Take three tablets by mouth every 8 hours as needed for Pain. Qty: 40 tablet, Refills: 0 PRESCRIPTION TYPE: No Print CONTINUE these medications which have NOT CHANGED Details aspirin EC 81 mg tablet Take 81 mg by mouth at bedtime daily. Take with food. PRESCRIPTION TYPE: Historical Med atenoloL (TENORMIN) 50 mg tablet Take 50 mg by mouth every morning. PRESCRIPTION TYPE: Historical Med brimonidine (ALPHAGAN) 0.2 % ophthalmic solution INSTILL 1 DROP INTO RIGHT EYE T WICE DAILY PRESCRIPTION TYPE: Historical Med cetirizine (ZYRTEC) 10 mg tablet Take 5 mg by mouth daily as needed. PRESCRIPTION TYPE: Historical Med dexAMETHasone (DECADRON) 4 mg tablet Take two tablets by mouth daily. On Days 2- 4 of each cycle. Qty: 30 tablet, Refills: 0 PRESCRIPTION TYPE: Normal Associated Diagnoses: Malignant neoplasm of overlapping sites of bladder (HCC) dicyclomine (BENTYL) 10 mg capsule PRESCRIPTION TYPE: Historical Med dorzolamide-timoloL (COSOPT) 2-0.5 % ophthalmic solution INSTILL 1 DROP INTO RIG HT EYE TWICE DAILY PRESCRIPTION TYPE: Historical Med famotidine (PEPCID) 20 mg tablet Take 20 mg by mouth twice daily as needed. PRESCRIPTION TYPE: Historical Med fish oil /omega-3 fatty acids (SEA-OMEGA) 340/1000 mg capsule Take 1 capsule by mouth daily. PRESCRIPTION TYPE: Historical Med ketorolac (ACULAR) 0.5 % ophthalmic solution PRESCRIPTION TYPE: Historical Med latanoprost (XALATAN) 0.005 % ophthalmic solution INSTILL 1 DROP INTO RIGHT EYE AT BEDTIME PRESCRIPTION TYPE: Historical Med Miscellaneous Medical Supply [facility] Urostomy supplies and accessories Dispense one month of supplies Dx Bladder Cancer C67.9 Qty: 20 each, Refills: 99 PRESCRIPTION TYPE: Print ondansetron HCL (ZOFRAN) 8 mg tablet Take one tablet by mouth every 8 hours as n eeded (nausea and vomiting). Qty: 30 tablet, Refills: 0 PRESCRIPTION TYPE: Normal Associated Diagnoses: Malignant neoplasm of overlapping sites of bladder (HCC) polyethylene glycol 3350 (MIRALAX) 17 g packet Take one packet by mouth daily as needed. Qty: 12 each, Refills: 1 PRESCRIPTION TYPE: Normal prednisoLONE (PRELONE) 15 mg/5 mL oral syrup PRESCRIPTION TYPE: Historical Med RHOPRESSA 0.02 % drop INSTILL 1 INTO RIGHT EYE AT BEDTIME PRESCRIPTION TYPE: Historical Med senna/docusate (SENOKOT-S) 8.6/50 mg tablet Take one tablet by mouth daily as ne eded. Qty: 90 tablet, Refills: 0 PRESCRIPTION TYPE: Normal Vit A,C,F-Zdfi-Eagxdp (PRESERVISION AREDS) 14,320-226-200 xnxl-ae-nmhj cap Take 2 capsules by mouth daily. PRESCRIPTION TYPE: Historical Med Future Appointments Date Time Provider Department Center 07/30/2021 8:45 AM Kehinde Cao DO [address] Exam 07/30/2021 10:00 AM Cody Louie MD [address] Exam 04/13/2022 10:45 AM Kvng Rm MD [facility] Pending items needing follow up: n/a Signed: Scott Garcia MD 07/20/2021 cc: Primary Care Physician: Angelo Gordon Verified Referring physicians: Additional provider(s): CONSULTANT * Isamar Mart LMSW - 07/20/2021 10:44 AM ART CONSULTANT Case Management Progress Note NAME:Chemo Jenkins DO B:1950 AGE: 71 y.o. ADMISSION DATE: 07/12/2021 DAYS ADMITTED: LOS: 8 days Todays Date: 07/20/2021 Plan D/C [facility] via [facility]isted [facility] at 12pm . Interventions Support Info or Referral Discharge Planning [facility] updated by team that the pt is medically stable to d/c today. Pt has been accepted by [facility]. They have bed availabilit y today, however the pt would have to leave here by 12pm to be at their facility by 3pm. [facility] received call from Dennis at [facility] - no bed availability this week, possibly next week. [facility] contacted the pt's , Dorie. Discussed that [facility] could mike e the pt today. Dorie is in agreement with the pt discharging to [facility] if transport can be arranged. [facility] tasked MANNEQUIN WIG MAKER to check on transportation to [facility]. Transportation secured 12pm with [facility] for $665. Family does not have the [facility] to cover transport. Management has agreed to pay for transportation for the patient. Team placed d/c orders. [facility] reached out to pt's and discussed d/c plan for 12pm via transpo rt. [facility] updated bedside nurse with d/c plan - nurse report [phone]. [facility] delivered transfer packet. [facility] faxed d/c orders to [facility] and notified them of transport being set [...] Selected Continued Care - Admitted Since 07/12/2021 Destination Coordination complete. Service Provider Selected Services Address Phone Fax Patient Preferred [facility] [address] [facility] [address] [phone] Isamar Mart LMSW Voalte - [phone] CONSULTANT * Miguelina Li - 07/20/2021 10:43 AM ART CONSULTANT Patient Transportation Quote Request Received request from Isamar Mart [facility] to check WC transport quotes - 1 liter of 02 to [facility] [place], [place]: [facility]: [phone]: $665 Available 12PM TODAY. SCHEDULED. [facility] [phone]: $670 [employer] 913- $ waiitng on quote Unavailable today [facility] [phone]: $416.98 Unavailable today [employer] [facility] [phone]: $ No availability. Miguelina Li Supervisor [employer] For further assistance please contact [facility] *[phone] CONSULTANT * April Calderón, ERNST - 07/19/2021 9:27 AM ART CONSULTANT 0915: Per chart review, VSS with intermittent elevated B/P. O2 @ 1L/NC; IV zofra n will need to be switched to PO at discharge. Per Isamar CORONADO), team working on in creasing patient PO tolerance. Patient needs to work with OT; otherwise medical ly stable. 0927: Notified Isamar CORONADO) re: chart review. Admissions liaison to follow up per u pdates and bed availability. ELEN Wahl, RN Inpatient Rehab Admission Nurse (office: [phone] or voalte: [phone]) ELEN Levine, RN CONSULTANT * Siria Renteria - 07/16/2021 1:07 PM ART CONSULTANT Case Management Progress Note NAME:Chemo Jenkins DO B:1950 AGE: 71 y.o. ADMISSION DATE: 07/12/2021 DAYS ADMITTED: LOS: 4 days Todays Date: 07/16/2021 Plan [facility] updated [facility] P: [phone] on plans for pt to go IPR [...] for the patient. Stacey Renteria RN Nurse Saddle Stitch Operator Available on Voalte [phone] Office hours 8-4 M-F CONSULTANT * April Calderón, ERNST - 07/16/2021 10:55 AM ART CONSULTANT 1033: Notified by Isamar CORONADO) that the [...] Wahl, RN Inpatient Rehab Admission Nurse (office: [phone] or voalte: [phone]) ELEN Levine, RN CONSULTANT * Isamar Mart LMSW - 07/16/2021 10:33 AM ART CONSULTANT Case Management Progress Note NAME:Chemo Jenkins DO B:1950 AGE: 71 y.o. ADMISSION DATE: 07/12/2021 DAYS ADMITTED: LOS: 4 days Todays Date: 07/16/2021 Plan D/C planning ongoing - IPR Pending: [facility] - likely no bed until late next week [facility] Interventions Support Info or Referral Discharge Planning [facility] updated by team. Potential d/c dates of 07-19-21. SWCM called [facility] - will likely not have a bed until late next week, if pt qualifies SW called the pt's spouse, Dorie. She reported that she would like to cons ider [facility] if they can accept him as she would have to drive to other facilitie s anyway and would like to stay in the area. [facility] notified [facility] of the referral. Medication Needs Financial Legal [...] the patient. Isamar Mart LMSW Voalte - [phone] CONSULTANT * Isamar Mart LMSW - 07/15/2021 11:23 AM ART CONSULTANT Case Management Progress Note NAME:Chemo Jenkins DO B:1950 AGE: 71 y.o. ADMISSION DATE: 07/12/2021 DAYS ADMITTED: LOS: 3 days Todays Date: 07/15/2021 Plan D/C plan ongoing - Interventions Support Info or Referral Discharge Planning [facility]IT[facility] updated by team. Pt to be here a few more days. Will likely need rehab . BRITANY met with pt and his at bedside. Discussed that rehab consult would be completed. Provided pt and his a list of IPR facilities to review. Pt and family w ould be interested in [facility] in [place], [place] as it is close to their home. FAITHCM reviewed EMR - Rehab Med recommends IPR. FAITH sent referral to [facility] per family request. Medication Needs [...] the patient. Isamar Mart LMSW Voalte - [phone] CONSULTANT * Isamar Mart LMSW - 07/13/2021 3:27 PM ART CONSULTANT Case Management Progress Note NAME:Chemo Jenkins DO [...] pt and family to have to review. BRITANY will con't to follow for d/c planning [...] the patient. Isamar Mart LMSW Voalte - [phone] CONSULTANT * Siria Renteria - 07/13/2021 12:32 PM ART CONSULTANT Case Management Admission Assessment NAME:Chemo Jenkins :1950 AGE: 71 y.o. ADMISSION DATE: 07/12/2021 DAYS ADMITTED: LOS: 1 day Todays Date: 07/13/2021 Source of Information: patient/ Plan Plan: Case Management Assessment NCM disussing dc planning and dispo for pt with new ostomy post dc Pt had [facility]/[place], [place]. P:[phone] Fax: [phone] F: [phone] -ACCEPTED Pt saw PCP on file in Jun 08 Pt owns no DME Pt denies having been to any sub acute facilities post hospital dc in past to transport home when medically stable Dc dispo ongoing Patient Address/Phone [address] [place] [address] (home) Emergency Contact Extended Emergency Contact [...] Current/Previous Services PCP Angelo Gordon, , [id number] [place] - [address] [place] [id number] [facility] [id number] [place] [address] Durable Medical Equipment Durable Medical Equipment at [...] [facility] Hospice: No Outpatient Therapy [facility] SNF: No NH: No Inpatient Rehab IPR: No [facility] LTACH: No Acute Hospital Stay Stacey Renteria RN Nurse Saddle Stitch Operator Available on Voalte [phone] Office hours 8-4 M-F CONSULTANT documented in this encounter Medications at Time [...] 06/08/2020 Miscellaneous Medical Urostomy 20 each Supply [facility] supplies and accessories Dispense one month of [...] 8 hours as needed for Pain. Vit A,C,I-Whcb-Xykxqt Take 2 0 (PRESERVISION AREDS) capsules by 14,320-226-200 mouth daily. myia-so-dudy cap documented as of this encounter Ordered [...] Means Destination Disposition Wheelchair Rehab Facility (Not [facility]) documented in this encounter Progress Notes * Stevenson Lincoln MD - 07/20/2021 12:22 PM ART CONSULTANT Daily Progress Note Today's Date: 07/20/2021 Name: Chemo Jenkins Admission Date: 07/12/2021 (LOS: 8 days) Assessment: 71M with metastatic bladder cancer s/p cystectomy and ileal conduit with peritoneal mets and distal obstruction s/p open loop sigmoid colostomy (06/20 4) Principal Problem: Colon obstruction (HCC) Active Problems: ITA (acute kidney injury) (HCC) Acute ischemic stroke (HCC) Acute right hemiparesis (HCC) Homonymous hemianopia, right Hypovolemia Encephalopathy Moderate malnutrition (HCC) Acute ischemic left ELECTRIC INSTALLER stroke (HCC) Coagulopathy (HCC) Hypovolemic shock (HCC) NSTEMI, initial episode of care ([facility]) Plan: S/p open loop colostomy- ERAS, regular diet + boost shakes; ostomy team GERD - Famotidine, TUMS prn Hypotension, acute blood loss anemia- resolved Elevated cardiac enzymes, resolved- cardiology consult, no acute ischemia on EKG , echo with no ischemia, EF 70%, troponin plateau Pain- multimodal pain control Possible small apical [...] Palliative care consulted for goals of care. Rehab consulted - patient pope placem ent Lines/Drains- urostomy/colostomy PPX- SCDs, ambulating when hemodynamically safe with PT/OT, chemoppx DC planning for today as he feels well, is eager to go to inpatient rehab. Stevenson Lincoln MD 7496 Subjective: ZOILA. Pain controlled. Denies back or flank pain. No urinary symptoms. Has maximus pope ving limited intake. Objective: BP: (119-140)/(72-79) Temp: [36.3 C (97.3 F)-36.9 C (98.4 F)] Pulse: [66-80] Respirations: [13 PER MINUTE-22 PER MINUTE] SpO2: [93 %-100 %] Lab Results Component Value Date/Time NA 137 07/19/2021 02:42 AM K 4.7 07/19/2021 02:42 AM CL 101 07/19/2021 02:42 AM CO2 23 07/19/2021 02:42 AM BUN 26 (H) 07/19/2021 02:42 AM CR 0.96 07/19/2021 02:42 AM MG 1.9 07/19/2021 02:42 AM PO4 3.4 07/19/2021 02:42 AM Lab Results Component Value Date/Time HGB 11.3 (L) 07/20/2021 08:17 AM HCT 34.8 (L) 07/20/2021 08:17 AM WBC 11.0 07/20/2021 08:17 AM PLTCT 297 07/20/2021 08:17 AM INR 1.1 03/31/2021 03:24 PM Lab Results Component Value Date/Time GLUPOC 118 (H) 07/14/2021 11:04 AM GLUPOC 116 (H) 07/12/2021 08:51 PM Physical Exam Constitutional: Appearance: He is normal weight. HENT: Head: Normocephalic. Mouth/Throat: Mouth: Mucous membranes are moist. Eyes: General: No scleral icterus. Cardiovascular: Rate and Rhythm: Normal rate. Pulses: Normal pulses. Heart sounds: Normal heart sounds. Pulmonary: Effort: Pulmonary effort is normal. Abdominal: Comments: Midline incision CDI, RLQ urostomy in place with clear urine, LLQ c olostomy in place with stool and gas; soft, nondistended, nontender Musculoskeletal: General: No tenderness. Cervical back: Neck supple. Comments: brusing that has been stable on left flank. Non-tender Skin: General: Skin is warm and dry. Neurological: Mental Status: He is alert. Mental status is at baseline. Psychiatric: Mood and Affect: [...] Subcutaneous Fat: No Muscle Wasting: Yes Moderate Muslim, Clavicle, Deltoid (did not assess lower bod y) Edema: No Malnutrition Interventions: high-kcal high-protein shakes CONSULTANT * Dena Cotton RN - 07/20/2021 12:22 PM ART CONSULTANT Patient discharged via medical transport to [facility] in rehab. PIV removed. Packet se nt with family. No questions at this time. CONSULTANT * Judy Fitzgerald OT - 07/20/2021 10:56 AM ART CONSULTANT OCCUPATIONAL THERAPY PROGRESS NOTE Name: Chemo Jenkins [...] ce rebellar infarcts with a dominant left ELECTRIC INSTALLER infarct. Precautions: Falls (colstomy/urostomy) Pain / Complaints: Patient agrees to participate in therapy;Unable to rate Objective Psychosocial Status: Willing and Cooperative to Participate Persons Present: Spouse;Son Home Living Type of Home: House Home Layout: One Level;Stairs to Enter w/o Rails (2-3 LETY) Bathroom Shower / Tub: Walk-in Shower Bathroom Toilet: Standard Home Equipment: Walker Prior Function Level Of Coke: Independent with ADLs and functional transfers;Independen t [...] Recommendations Recommendation: Inpatient setting Therapist: SUKUMAR Sweeney/Miguel [id number] Date: 07/20/2021 CONSULTANT * Dena Cotton RN - 07/20/2021 10:33 AM ART CONSULTANT 0850: During med pass and initial assessment, patient's and daughter kennedy amos patient was having some difficulty swallowing his food. Patient took pills o ev. 0930: Paged surg-onc team. Verbal to keep patient NPO and to place a speech ther apy consult for patient. Orders placed. Patient and family updated. 1118: Case management with Surg-onc texted and said patient will be DC to [facility] in [place] around 12 pm today. Patient and family updated. CONSULTANT * Dena Cotton RN - 07/20/2021 7:45 AM ART CONSULTANT Breakfast ordered for patient at this time. CONSULTANT * Yas Avelar MD - 07/19/2021 9:34 PM ART CONSULTANT PALLIATIVE CARE INPATIENT NOTE Name: Chemo Jenkins [...] pgr *[phone] Also on Voalte and [employer]MSConnect CONSULTANT * Ana Rosenberg, RN - 07/19/2021 8:03 PM ART CONSULTANT Report to Lisa DUKES . Transferring patient to [place] 1130. CONSULTANT * Latoya Pastrana, PT - 07/19/2021 3:14 PM ART CONSULTANT PHYSICAL THERAPY PROGRESS NOTE Name: Chemo Jenkins [...] Equipment: Owns what is needed Therapist: Latoya Pastrana, PT, DPT, [facility] Date: 07/19/2021 CONSULTANT * Yaritza La, OT - 07/19/2021 10:30 AM ART CONSULTANT OCCUPATIONAL THERAPY PROGRESS NOTE Name: Chemo Jenkins [...] ce rebellar infarcts with a dominant left ELECTRIC INSTALLER infarct. Precautions: Falls (colstomy/urostomy) Pain / Complaints: Patient agrees to participate in therapy;Unable to rate Objective Psychosocial Status: Willing and Cooperative to Participate Persons Present: RehabTechnician;Daughter;Spouse Home Living Type of Home: House Home Layout: One Level;Stairs to Enter w/o Rails (2-3 LETY) Bathroom Shower / Tub: Walk-in Shower Bathroom Toilet: Standard Home Equipment: Walker Prior Function Level Of Coke: Independent with ADLs and functional transfers;Independen t [...] Recommendations Recommendation: Inpatient setting Therapist: SUKUMAR Randall/Miguel [id number] Date: 07/19/2021 CONSULTANT * Liliana Choe MD - 07/19/2021 6:26 AM ART CONSULTANT Daily Progress Note Today's Date: 07/19/2021 Name: Chemo Jenkins Admission Date: 07/12/2021 (LOS: 7 days) Assessment: 71M with metastatic bladder cancer s/p cystectomy and ileal conduit with peritoneal mets and distal obstruction s/p open loop sigmoid colostomy (06/20 4) Principal Problem: Colon obstruction (HCC) Active Problems: ITA (acute kidney injury) (HCC) Acute ischemic stroke (HCC) Acute right hemiparesis (HCC) Homonymous hemianopia, right Hypovolemia Encephalopathy Moderate malnutrition (HCC) Acute ischemic left ELECTRIC INSTALLER stroke (HCC) Coagulopathy (HCC) Hypovolemic shock (HCC) NSTEMI, initial episode of care ([facility]) Plan: S/p open loop colostomy- [...] limited regardless of the ALIYA results. Cardiol ogsurekha agrees and will hold off on ALIYA for now. Palliative care consulted for goals of care. Rehab consulted - FU recs Lines/Drains- urostomy/colostomy PPX- SCDs, ambulating when hemodynamically safe with PT/OT, chemoppx Cont inpatient management. DC pending increased PO intake and rehab planning Liliana Choe MD [id number] Subjective: ZOILA. Denies pain. Reports minimal PO intake, of liquids only. Reports he was not interested in food. No nausea/vomiting. Has continued ostomy output Objective: BP: (118-157)/(77-97) Temp: [36.5 C (97.7 F)-36.9 C (98.4 F)] Pulse: [75-100] Respirations: [13 PER MINUTE-21 PER MINUTE] SpO2: [90 %-97 %] Lab Results Component Value Date/Time NA 137 07/19/2021 02:42 AM K 4.7 07/19/2021 02:42 AM CL 101 07/19/2021 02:42 AM CO2 23 07/19/2021 02:42 AM BUN 26 (H) 07/19/2021 02:42 AM CR 0.96 07/19/2021 02:42 AM MG 1.9 07/19/2021 02:42 AM PO4 3.4 07/19/2021 02:42 AM Lab Results Component Value Date/Time HGB 10.1 (L) 07/16/2021 04:40 AM HCT 29.9 (L) 07/16/2021 04:40 AM WBC 9.1 07/16/2021 04:40 AM PLTCT 109 (L) 07/16/2021 04:40 AM INR 1.1 03/31/2021 03:24 PM Lab Results Component Value Date/Time GLUPOC 118 (H) 07/14/2021 11:04 AM GLUPOC 116 (H) 07/12/2021 08:51 PM Physical Exam Constitutional: Appearance: He is normal weight. He is not ill-appearing. HENT: Head: Normocephalic. Mouth/Throat: Mouth: Mucous [...] Subcutaneous Fat: No Muscle Wasting: Yes Moderate Muslim, Clavicle, Deltoid (did not assess lower bod y) Edema: No Malnutrition Interventions: high-kcal high-protein shakes CONSULTANT * Liliana Choe MD - 07/18/2021 10:03 AM ART CONSULTANT Daily Progress Note Today's Date: 07/18/2021 Name: [...] Encephalopathy Moderate malnutrition (HCC) Acute ischemic left ELECTRIC INSTALLER stroke (HCC) Coagulopathy (HCC) Hypovolemic shock (HCC) NSTEMI, initial episode of care ([facility]) Plan: S/p open loop colostomy- [...] need rehab on discharge Liliana Choe MD [id number] Subjective: ZOILA. Denies pain. No n/v. Tolerating [...] Subcutaneous Fat: No Muscle Wasting: Yes Moderate Muslim, Clavicle, Deltoid (did not assess lower bod y) Edema: No Malnutrition Interventions: high-kcal high-protein shakes CONSULTANT Associated attestation - Angelo Danielle MD - 07/19/2021 10:44 AM ART CONSULTANT ATTESTATION I personally performed the campo portions of the E/M visit, discussed case with re sident and concur with resident documentation of history, physical exam, assessm ent, and treatment plan unless otherwise noted. Staff name: Angelo Danielle MD Date: 07/19/2021 * Benton Chopra, PT - 07/18/2021 9:40 AM ART CONSULTANT PHYSICAL THERAPY PROGRESS NOTE Name: Chemo Jenkins [...] Equipment: Owns what is needed Therapist: Benton Chopra, PT, DPT Date: 07/18/2021 CONSULTANT * Nai Cheney RN - 07/17/2021 2:40 PM ART CONSULTANT Patient has had increased nausea and bilious emesis after administration of PRN antiemetic. Patient has had sips of water and boost so far this shift. Primary t eam text paged. CONSULTANT * Mar William MD - 07/17/2021 1:48 PM ART CONSULTANT Daily Progress Note Today's Date: 07/17/2021 Name: [...] Encephalopathy Moderate malnutrition (HCC) Acute ischemic left ELECTRIC INSTALLER stroke (HCC) Coagulopathy (HCC) Hypovolemic shock (HCC) NSTEMI, initial episode of care ([facility]) Plan: S/p open loop colostomy- [...] need rehab on discharge Mar William MD 0835 Subjective: ZOILA. Denies pain. No n/v. Tolerating [...] Subcutaneous Fat: No Muscle Wasting: Yes Moderate Muslim, Clavicle, Deltoid (did not assess lower bod y) Edema: No Malnutrition Interventions: high-kcal high-protein shakes CONSULTANT Associated attestation - Angelo Danielle MD - 07/19/2021 10:46 AM ART CONSULTANT ATTESTATION I personally performed the campo portions of the E/M visit, discussed case with re sident and concur with resident documentation of history, physical exam, assessm ent, and treatment plan unless otherwise noted. Staff name: Angelo Danielle MD Date: 07/19/2021 * Vivi Stoddard MD - 07/16/2021 4:34 PM ART CONSULTANT Staff Cardiology Progress Note Admission Date: 07/12/2021 Today's Date: 07/16/2021 LOS: 4 days Assessment & Plan Chemo Jenkins is a 71 y.o. patient with the following problems: Principal Problem: Colon obstruction (HCC) Active Problems: ITA (acute kidney injury) (HCC) Acute ischemic stroke (HCC) Acute right hemiparesis (HCC) Homonymous hemianopia, right Hypovolemia Encephalopathy Moderate malnutrition (HCC) Acute ischemic left ELECTRIC INSTALLER stroke (HCC) Coagulopathy (HCC) Hypovolemic shock (HCC) [...] and cerebellar infarcts with a large left ELECTRIC INSTALLER territory inf arct.MRI 07/13 showed multifocal cerebral and cerebellar infarcts with a domina nt large left ELECTRIC INSTALLER territory infarct. NSTEMI, type II suspected in [...] and cerebellar infarcts and a large left ELECTRIC INSTALLER territory infarct which most likely represent combination [...] discuss possible hospice therapy with his metastatic carolann hyman. I encouraged palliative care consult. We will [...] rhythym, no atrial fibrillation Vivi Stoddard MD CONSULTANT * Yaritza La, OT - 07/16/2021 3:21 PM ART CONSULTANT OCCUPATIONAL THERAPY NOTE Name: Chemo Jenkins : 1950 Age: 71 y.o. Admission Date: 07/12/2021 LOS: 4 days Attempted to see patient at scheduled time with animal rehabilitator. Patient and family c sunitatly meeting with Palliative team. OT will continue to follow. Therapist: SUKUMAR Randall/Miguel [id number] Date: 07/16/2021 CONSULTANT * Benton Chopra, PT - 07/16/2021 1:43 PM ART CONSULTANT PHYSICAL THERAPY PROGRESS NOTE Name: Chemo Jenkins [...] to be re-oriented despite multiple attempts, tulio Roe prefere nce and R side inattention Bed [...] benefit from continued therapy to maxmize function. [facility] 6 Clicks Basic Mobility Inpatient Turning from [...] 10 Standardized (T-scale) Score: 28.13 Basic Mobility [facility] 0-100%: 71.92 CMS G Code Modifier for Basic Mobility: CL [facility] Basic Mobility Functional Stage: -11.95-33 Limited Movement [...] Therapist: Benton Chopra PT, DPT Date: 07/16/2021 CONSULTANT * Elvie Ratliff MD - 07/16/2021 11:52 AM ART CONSULTANT Neurology Progress Note Chemo Jenkins Admission Date: 07/12/2021 LOS: 4 days Assessment/Plan: Principal Problem: Colon obstruction (HCC) Active Problems: ITA (acute kidney injury) (HCC) Acute ischemic stroke (HCC) Acute right hemiparesis (HCC) Homonymous hemianopia, right Hypovolemia Encephalopathy Moderate malnutrition (HCC) Acute ischemic left ELECTRIC INSTALLER stroke (HCC) Encephalopathy Pt seen and examined. Family members at bedside. Chart reviewed. relevant neuro images( MRI/MRA 07/13) and labs are reviewed. 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 Exam this am: Pt is awake, alert. Does not know his age. Poor short term memory. Unable to rec all I just had conversation with him. Family reported that pt was paranoid from time to time. assessment and plan; ELECTRIC INSTALLER and other territory stroke: d/w pt family, ALIYA will not change overall manag ement pic. Will not pursue aggressive work up. Metastatic urothelial carcinoma: on palliative tumor management. Confusion and poor short term memory: multiple factorial. Channel Marketing Coordinator stroke involving h is left temporal lobe contribute his poor short term memory and confusion signif icantly. In consideration of his over all clinical pic, recommended palliative team consu lt for goal of care discussion. Cont asa for now. Stroke respond team will sign off. Please call us with questions. Elvie Ratliff MD Vascular neurologist On [employer]. CONSULTANT * Bakari Stone PHARMD - 07/16/2021 10:25 AM ART CONSULTANT Pharmacy Note: Patients Own Med The following medications have been identified by pharmacy and placed in the [facility] medication room for storage: Netarsudil ( Rhopressa) 0.02% soln. rx [id number] Lot # [id number] exp 08/2023. The patient may use their own supply of these medications during this admission. All doses should be administered and documented per hospital policy. CONSULTANT * Scott Garcia MD - 07/16/2021 6:32 AM ART CONSULTANT Daily Progress Note Today's Date: 07/16/2021 Name: Chemo Jenkins Admission Date: 07/12/2021 (LOS: 4 days) Assessment: 71M with metastatic bladder cancer s/p cystectomy and ileal conduit with peritoneal mets and distal obstruction s/p open loop sigmoid colostomy (/ 4) Principal Problem: Colon obstruction (HCC) Active Problems: ITA (acute kidney injury) (HCC) Acute ischemic stroke (HCC) Acute right hemiparesis (HCC) Homonymous hemianopia, right Hypovolemia Encephalopathy Moderate malnutrition (HCC) Acute ischemic left ELECTRIC INSTALLER stroke (HCC) Coagulopathy (HCC) Hypovolemic shock (HCC) NSTEMI, initial episode of care ([facility]) Plan: S/p open loop colostomy- [...] di scuss this with neurology staff and TOBACCO HANGER. Lines/Drains- urostomy/colostomy PPX- SCDs, ambulating when hemodynamically [...] Subcutaneous Fat: No Muscle Wasting: Yes Moderate Muslim, Clavicle, Deltoid (did not assess lower bod y) Edema: No Malnutrition Interventions: high-kcal high-protein shakes CONSULTANT * Laura Damon RN - 07/15/2021 3:57 PM ART CONSULTANT 1535: Surg-onc team notified of bleeding around site of colostomy. Per team, tod t is expected. No new orders at this time. Colostomy bag changed. CONSULTANT * Elvie Ratliff MD - 07/15/2021 3:14 PM ART CONSULTANT Images from the original note were not [...] cerebellar infa rcts with a large left ELECTRIC INSTALLER territory infarct. At that time the stroke team was a ctivated on 07/13 the NIHSS was 7 for disorientation, R side drift, R homonymous hemianopia and L side extinction deficit. Elevated Creatinine prevented us from getting CTA head and neck. 07/13 MRI head: Revealed multifocal cerebral and cerebellar infarcts with a large left ELECTRIC INSTALLER territory infarct. This may represent a combination [...] Neurology clinic will be requested Otf Vines APRN-DOUBLER OPERATOR Vascular Neurology Subjective: No overnight events. Patient's [...] language) 2=neither correct 2 1c. 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 (other 1 step [...] assess due to amputation, fusion, etc L/R 0/ 6. Motor Leg-raise leg to 30 degrees [...] cerebellar infarcts with a dominant large left ELECTRIC INSTALLER territory infarct. This appears represent a combination [...] MRA head: 1. Occlusion of the left ELECTRIC INSTALLER at the level of the mid to distal P2 segment (corre sponding to the large left ELECTRIC INSTALLER territory infarct). 2. Otherwise patent major intracranial arteries without focal stenosis. Otf Vines APRN-ANN Vascular Neurology [id number] or Voalte CONSULTANT * Vivi Stoddard MD - 07/15/2021 2:52 PM ART CONSULTANT CARDIOLOGY CONSULT PROGRESS NOTE Patient Name: Chemo [...] and cerebellar infarcts and a large left ELECTRIC INSTALLER te rritory infarct which most likely represent [...] urothelial carcinoma Loc Trevino, Fellow, Cardiology Pager: [phone] I personally took the history, examined the patient and formulated the treatment plan. I discussed the above with the fellow. CONSULTANT * Yaritza La, OT - 07/15/2021 2:50 PM ART CONSULTANT OCCUPATIONAL THERAPY PROGRESS NOTE Name: Chemo Jenkins [...] ce rebellar infarcts with a dominant left ELECTRIC INSTALLER infarct. Precautions: Falls (colstomy/urostomy) Pain / Complaints: Patient agrees to participate in therapy;Unable to rate Pain Location: Abdomen Objective Psychosocial Status: Willing and Cooperative to Participate Persons Present: RehabTechnician;Spouse;Daughter Home Living Type of Home: House Home Layout: One Level;Stairs to Enter w/o Rails (2-3 LETY) Bathroom Shower / Tub: Walk-in Shower Bathroom Toilet: Standard Home Equipment: Walker Prior Function Level Of Coke: Independent with ADLs and functional transfers;Independen t [...] setting;Recommend rehab medicine consult Therapist: SUKUMAR Randall/Miguel [id number] Date: 07/15/2021 CONSULTANT * Kely Hernandez, RD - 07/15/2021 1:23 PM ART CONSULTANT CLINICAL NUTRITION Clinical Nutrition Follow-Up Assessment Name: Chemo Jenkins : 1950 Age: 71 y.o. Admission Date: 07/12/2021 LOS: 3 days Recommendation: ADAT to goal regular diet. Please encourage high-kcal high-protein unit shakes: High Protein Shake Ideas ? Vanilla 1 vanilla [place] Instant Breakfast + 2 vanilla ice creams + 1 vanil la Boost ? Very Chocolate 1 chocolate [place] Instant Breakfast + 2 chocolate ice cream s + 1 chocolate Boost ? Chocolate Raspberry 3 pkg Beneprotein + 1 raspberry sherbet + 1 chocolate Dipesh t ? Chocolate Peanut Butter 2 pkg Beneprotein + 1 chocolate milk + 2 chocolate ic e creams + 2 pkg peanut butter ? [place] Shake 3 pkg Beneprotein + 1 vanilla ice cream + 1 peach Boost Breeze ? [place] Socrates 3 pkg Beneprotein + 2 orange sherbet + 1 vanilla Boost ? Chocolate Banana 3 pkg Beneprotein+ 1 chocolate milk + 2 chocolate ice creams + 1/2 banana ? Vanilla Peanut Butter Banana 3 pkg Beneprotein + 2 vanilla ice creams + 1 pkg peanut butter + 1/2 banana + 1 vanilla Boost ? Edwards 1 strawberry [place] Instant Breakfast + 2 vanilla ice creams + 1 strawberry Boost ? Chocolate Peanut Butter Banana 3 pkg Beneprotein + 2 chocolate ice creams + 1 pkg peanut butter + 1/2 banana + 1 chocolate Boost ? Lemon Cream 2 pkg Beneprotein + 2 Citizen Of [place] ice lemon (partially melted) + 1 van illa ice cream + 1 whole milk ? Gonzalez Slush 1 pkg Prosource + 1 pkg Beneprotein + 2 Citizen [place] ice gonzalez (parti ally melted) Comments: Mr. Jenkins is a 71yoM with PMH notable for metastatic urothelial carcinoma s/p r adical cystectomy/prostatectomy with ileal conduit (06/04/20) now with distal ob struction s/p loop colostomy (07/12). Followed up with pt and family members [facility]. Advanced to clear liquids 07/13 [...] Current Oral Intake: Inadequate Estimated Calorie Needs: 4399-0643 (30-35 kcal/kg) Estimated Protein Needs: 97 (1.5 g/kg) Malnutrition Assessment: Malnutrition present on admission ICD-10 code E44: Chronic illness/Moderate non-severe malnutrition Mild loss of muscle mass, Energy intake: < 75% of estimated energy requirement for 1 month or more Malnutrition Interventions: high-kcal high-protein shakes Nutrition Focused Physical Assessment: Loss of Subcutaneous Fat: No Muscle Wasting: Yes; Severity: Moderate; Location: Muslim, Clavicle, Deltoid (di d not assess lower [...] , RDN, LD, CNSC Available via Voalte [id number] CONSULTANT * Scott Garcia MD - 07/15/2021 1:16 PM ART CONSULTANT Daily Progress Note Today's Date: 07/15/2021 Name: Chemo Jenkins Admission Date: 07/12/2021 (LOS: 3 days) Assessment: 71M with metastatic bladder cancer s/p cystectomy and ileal conduit with peritoneal mets and distal obstruction s/p open loop sigmoid colostomy (/ 4) Principal Problem: Colon obstruction (HCC) Active [...] 1354 Upper Left Quadrant 80 Edema: No CONSULTANT * Latoya Pastrana, PT - 07/15/2021 12:00 PM ART CONSULTANT PHYSICAL THERAPY PROGRESS NOTE Name: Chemo Jenkins [...] Latoya Pastrana PT, DPT, MHAM Date: 07/15/2021 CONSULTANT * Marisol Sky RN - 07/15/2021 10:00 AM ART CONSULTANT Wound Ostomy Note NAME:Chemo Jenkins :1950 AGE: [...] this time. Pt has been enrolled in [employer]. Ostomy Care: Suggested Pouching Supplies: Urostomy - 2 piece 95669, 02954 Colostomy - 1 piece [place] colostomy pouch 91506 or 8901 1. Change pouch with any sign of leaking 2. Clean skin with water only - no soap or wipes 3. If skin is broken down surrounding stoma, sprinkle stoma powder and wipe away the excess. 4. Alexander no sting skin prep on powdered skin and let dry completely 5. Cut new pouch leaving 1/8"-1/4" of skin showing between the stoma and pouch 6. Warm new pouch in palm of hands 7. Ensure skin is dry and apply new pouch 8. Lay warm hand over pouch once it's applied Marisol Sky RN, BSN, CWON Wound Ostomy Nursing Consult Service Available via Voalte Text or SNOBSWAP -F [phone] Office number [phone] Contact Team "Livestock Nutritionist" after 4:00pm M-F/weekends/holidays CONSULTANT * Myra Heredia RN - 07/14/2021 7:00 PM ART CONSULTANT I have reviewed the notes, assessments, and/or procedures performed by Murali pacheco, and concur with her/his documentation unless otherwise noted. CONSULTANT * Scott Garcia MD - 07/14/2021 4:18 PM ART CONSULTANT Daily Progress Note Today's Date: 07/14/2021 Name: [...] 1354 Upper Left Quadrant 80 Edema: No CONSULTANT Associated attestation - Kehinde Cao DO - 07/15/2021 10:32 AM ART CONSULTANT ATTESTATION I personally performed the campo portions of the E/M visit, discussed case with re sident and concur with resident documentation of history, physical exam, assessm ent, and treatment plan unless otherwise noted. Staff name: Kehinde Cao DO Date: 07/15/2021 Ct shows embolic stroke Will ask stroke team to eval Cannot anticoagulate with recent surgery and bleeding * Vivi Stoddard MD - 07/14/2021 3:29 PM ART CONSULTANT CARDIOLOGY CONSULT PROGRESS NOTE Patient Name: Chemo [...] and cerebellar infarcts and a large left ELECTRIC INSTALLER te rritory infarct which most likely represent [...] urothelial carcinoma Loc Trevino, Fellow, Cardiology Pager: [phone] I personally took the history, examined the patient and formulated the treatment plan. I discussed the above with the fellow. Rec outpatient reg thall. Carotid duplex in hospital and a 30 day event monitor at discharge. Will sign off, ple ase call with questions. CONSULTANT * Yaritza La OT - 07/14/2021 3:00 PM ART CONSULTANT OCCUPATIONAL THERAPY PROGRESS NOTE Name: Chemo Jenkins [...] ce rebellar infarcts with a dominant left ELECTRIC INSTALLER infarct. Precautions: Falls (colstomy/urostomy) Pain / Complaints: Patient agrees to participate in therapy;Unable to rate Pain Location: Abdomen Objective Psychosocial Status: Willing and Cooperative to Participate Persons Present: RehabTechnician;Spouse;Son Home Living Type of Home: House Home Layout: One Level;Stairs to Enter w/o Rails (2-3 LETY) Bathroom Shower / Tub: Walk-in Shower Bathroom Toilet: Standard Home Equipment: Walker Prior Function Level Of Coke: Independent with ADLs and functional transfers;Independen t [...] by following his . Activity Tolerance Endurance: / Tolerates 25-30 Minutes Exercise w/Multiple Rests Cognition [...] Strength / Tone Overall Strength / Tone: 5 Assessment Assessment: Decreased ADL Status;Decreased Cognition;Decreased Safe/Judg [...] Inpatient setting;Recommend rehab medicine consult Therapist: Yaritza La OTR/L [id number] Date: 07/14/2021 CONSULTANT * Baylee Sherman M.Div, BCC - 07/14/2021 12:10 PM ART CONSULTANT Flocculator Operator Note: Admit Date: 07/12/2021 I received an update on patient from his RN. Flocculator Operator met with patient and his family (spouse Dorie & son Ector) per request for a back roll lathe operator visit. I introduced spiritual care and offered supportive presence. Pt was not sure what had happened and notes he couldn't remember the surgery. Spouse and I offered words of support to pt. I confirmed that pt is [employer]. Pt asked me to pray for him. Family and I gath ered around pt and we prayed. Pt was tearful after the prayer. We continued to offer support noting that pt will be well cared for while at [facility]. Garment Alteration Examiner will remain available as neede. The spiritual care team is available as needed, 09/01, through the [facility] oard ([phone]). For a response within 24 hours, please submit an order in O2 fo r a back roll lathe operator consult. Date/Time: User: 07/14/2021 12:10 PM Baylee Sherman M.Div, BCC PCU 3 PCU CONSULTANT * Otf Vines APRN-NP - 07/14/2021 8:54 AM ART CONSULTANT Images from the original note were not [...] cerebellar infa rcts with a large left ELECTRIC INSTALLER territory infarct. At that time the stroke team was a ctivated on 07/13 the NIHSS was 7 for disorientation, R side drift, R homonymous hemianopia and L side extinction deficit. Elevated Creatinine prevented us from getting CTA head and neck. 07/13 MRI head: Revealed multifocal cerebral and cerebellar infarcts with a large left ELECTRIC INSTALLER territory infarct. This may represent a combination [...] who agrees with the plan. Otf Vines APRN-DOUBLER OPERATOR Vascular Neurology Subjective: No overnight events. Patient's [...] language) 2=neither correct 2 1c. 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 (other 1 step [...] cerebellar infarcts with a dominant large left ELECTRIC INSTALLER territory infarct. This appears represent a combinatio [...] MRA head: 1. Occlusion of the left ELECTRIC INSTALLER at the level of the mid to distal P2 segment (corre sponding to the large left ELECTRIC INSTALLER territory infarct). 2. Otherwise patent major intracranial arteries without focal stenosis. Otf Vines APRN-DOUBLER OPERATOR Vascular Neurology [id number] or Voalte CONSULTANT Associated attestation - Angela Lewis MD - 07/14/2021 12:08 PM ART CONSULTANT ATTESTATION I personally interviewed and examined the patient. I have reviewed the history, physical, impression and plan outlined by the Nurse Practitioner. Exam unchanged from yesterday, although he is more alert and interactive. He has right homonomous hemianopia, drift RUE and RLE. -MRI/MRA reviewed: MRI shows multifocal cerebral and cerebellar infarcts with a dominant left ELECTRIC INSTALLER infarct. Pattern looks both embolic and watershed. Gradient susceptibility in right caudate, left parietal, occipital lobes consistent with petechial hemorrhage. MRA iwht occluded left ELECTRIC INSTALLER at P2 segment. -Echo: technically difficult study, [...] Latoya Pastrana, PT - 07/14/2021 8:20 AM ART CONSULTANT PHYSICAL THERAPY NOTE Name: Chemo Jenkins : [...] Latoya Pastrana PT, DPT, MHAM Date: 07/14/2021 CONSULTANT * Dwaine Lanier, RT - 07/13/2021 10:21 PM ART CONSULTANT RT Adult Assessment Note NAME:Chemo Jeknins :1950 AGE: 71 y.o. ADMISSION DATE: 07/12/2021 [...] clear and diminished Respiratory Effort: non labored CONSULTANT * Lilian Haque RN - 07/13/2021 9:52 PM ART CONSULTANT 2100: Dr. Shepherd notified of hypotension. BP sustained 80/30. 500cc bolus of LR given. Labs drawn. 2144: BP marked improvement. Pt to MRI with resource nurse x2. 2300: Pt returned to floor with RNx2, no acute events while in MRI, VSS. 0030: Dr. Shepherd notified of persistent hypotension. 1u PRBC ordered. 5: 1u PRBC completed without any adverse events. BP improved CONSULTANT * Jenifer Flores RN - 07/13/2021 9:44 PM ART CONSULTANT Patient taken to MRI via bed on monitor with 2 Rn's. Patient monitored by Kiya leavitt RN during scan. CONSULTANT * Keanu Shepherd DO - 07/13/2021 9:26 PM ART CONSULTANT Brief Surgical Oncology Note Discussed elevated troponin with cardiology. Will continue to trend. No hep gtt at this time especially in the setting of an acute CVA. Will continue with ASA 8 1 mg. Atorvastatin added per cardiology recommendations Keanu Shepherd DO [id number] CONSULTANT * Lavern Lucas RN - 07/13/2021 12:59 PM ART CONSULTANT 0800: initial assessment, no acute changes from [...] 1830: notified of increasing size of colostomy CONSULTANT * Latoya Pastrana PT - 07/13/2021 12:12 PM ART CONSULTANT PHYSICAL THERAPY ASSESSMENT Name: Chemo Jenkins : [...] Strength Overall Strength: Generalized Weakness (R side clay artist weaker than the L) Posture/Neurological Posture/Neuro Comments: [...] to home Therapist Latoya Pastrana PT, DPT, MHAM Date 07/13/2021 CONSULTANT * Yaritza La, OT - 07/13/2021 10:33 AM ART CONSULTANT OCCUPATIONAL THERAPY ASSESSMENT NOTE Name: Chemo Jenkins [...] Home Equipment: Walker Prior Function Level Of Coke: Independent with ADLs and functional transfers;Independen t [...] Recommendations Recommendation: Inpatient setting Therapist: SUKUMAR Randall/Miguel [id number] Date: 07/13/2021 CONSULTANT * Indu Garcia MD - 07/13/2021 8:33 AM ART CONSULTANT Anesthesia Follow-Up Evaluation: Post-Procedure Day One Name: Chemo Jenkins : 1950 Age: 71 y.o. Sex: male Procedure Date: 07/12/2021 Procedure: Procedure(s) with comments: EXPLORATORY LAPAROTOMY, DIVERTING LOOP COLOSTOMY - 1 hr, REQUEST 1300 START Physical Assessment Height: 172.7 cm (68") Weight: 64.8 kg (142 lb 13.7 oz) Vital Signs (Last Filed in 24 hours) BP: 101/40 (07/13 0700) Temp: 36.4 C (97.6 F) (07/13 0400) Pulse: 67 (07/13 0700) Respirations: 12 PER MINUTE (07/13 699) SpO2: [...] acceptable and room air Cardiovascular Status:acceptable Regional/Neuroaxial: CONSULTANT * Scott Garcia MD - 07/13/2021 7:07 AM ART CONSULTANT Daily Progress Note Today's Date: 07/13/2021 Name: [...] with urostomy bag, abdomen soft, nontender, nondistended, ND VF Elevated cardiac enzymes- cardiology consult, no [...] Colostomy 07/12/21 1354 Upper Left Quadrant 80 CONSULTANT Associated attestation - Kehinde Cao DO - 07/15/2021 10:32 AM ART CONSULTANT ATTESTATION I personally performed the campo portions of the E/M visit, discussed case with re sident and concur with resident documentation of history, physical exam, assessm ent, and treatment plan unless otherwise noted. Staff name: Kehinde Cao DO Date: 07/15/2021 Bleeding overnight Given units * Lilian Haque RN - 07/13/2021 1:27 AM ART CONSULTANT 2241: pt arrived on unit. LR infusing. [...] lethargic overnight. Disoriented x3-4. Sleeping between cares CONSULTANT * Mae Mishra RN - 07/12/2021 10:32 PM ART CONSULTANT Rapid Response called to transfer pt to SICU per Dr Shepherd .BP's remain to range 80-88/49-56. HR mid 70's-lower 80's. Pt just completed 1 unit of PRBC's. CONSULTANT * Mae Mishra RN - 07/12/2021 8:35 PM ART CONSULTANT Pt's BP at 2023 89/54, HR 80, RR 14, O2 sat [address] Bradford paged and upd ate on vitals. Pt lethargic, difficult to arouse. Stated that she would be up to see pt. At this time, BP 81/50. Rapid response was called. Dr Bradford at [facility]. * Leny Bradford MD - 07/12/2021 8:30 PM ART CONSULTANT Brief Surgery Note: Patient seen and examined [...] Leny Bradford MD General Surgery Resident, PGY1 CONSULTANT * Tamika Ramires RN - 07/12/2021 6:40 PM ART CONSULTANT Pt colostomy bag is found to be [...] at t his time, rates pain 0/10. CONSULTANT * Mike Avila RN - 07/12/2021 12:05 PM ART CONSULTANT Wound Ostomy Note NAME:Chemo Jenkins :1950 AGE: 71 y.o. ADMISSION DATE: 07/12/2021 DAYS ADMITTED: LOS: 0 days Reason for Consult/Visit: ostomy marking Assessment/Plan: Active Problems: * No active hospital problems. * Planned Procedure: Colostomy Surgeon: Nash Abdomen remains smooth in supine and seated positions. Sites x 1 marking with " * " in LUQ quadrant. Urostomy at RUQ Stoma red moist protrudes. Jhoana two piece flat #[id number] on no w. Our service will plan to follow up with patient post operatively and implement o stomy education if warranted. Brief discussion with patient about stoma and futu re inpatient stoma/pouch care. All questions from patient answered at this time. Will continue to follow. Mike Avila RN, BSN Wound/ Ostomy Nursing Consult Service Office: [phone] Pager: [phone] Wound/ Ostomy Team pager (after hours/ weekends): [phone] CONSULTANT documented in this encounter H&P Notes * Scott Garcia MD - 07/12/2021 12:12 PM ART CONSULTANT History and Physical Update Note Allergies: Tegaderm, Erythromycin, and Readyprep chg [chlorhexidine gluconate] Lab/Radiology/Other Diagnostic Tests: No pertinent labs Point of Care Testing: (Last 24 hours): Nutrition: No Dietitian Consult Wound: No Wound Consult Only change to plan is operative exposure. Will proceed with exploratory laparot khoa, colostomy creation, possible bowel resection Scott Garcia MD Pager [phone] CONSULTANT * Shravan Laina Greenberg, TOBACCO HANGER-DOUBLER OPERATOR - 07/09/2021 9:30 AM ART CONSULTANT Images from the original note were not [...] history is an appendectomy. They live in [facility]. They have a daughter coming into [...] propria (detrusor muscle) (based on prior biopsy [id number]) Regional Lymph Nodes (pN) pN0: No lymph [...] 06/04/2020 Performed by Keith Trinidad MD at [facility] OR PERCUTANEOUS NEPHROSTOLITHOTOMY/ PYELOSTOLITHOTOMY - 2 CM OR LESS Right 11/12 Performed by Tristan Bowman MD at [facility] OR URETEROSCOPY WITH URETERAL STENT EXCHANGE Right 02/15/2021 Performed by Tristan Bowman MD at [facility] OR PERCUTANEOUS NEPHROSTOLITHOTOMY/ PYELOSTOLITHOTOMY - GREATER THAN 2 CM Left 04/29/2021 Performed by Kvng Rm MD at [facility] OR PERCUTANEOUS PLACEMENT NEPHROSTOMY CATHETER WITH NEPHROSTOGRAM/ URETEROGRAM/ IMAGE-GUIDANCE Left 04/29/2021 Performed by Kvng Rm MD at [facility] OR CYSTOURETHROSCOPY WITH URETEROSCOPY AND/ OR PYELOSCOPY - WITH REMOVAL/ MANIP ULATION CALCULUS Left 04/29/2021 Performed by Kvng Rm MD at [facility] OR No family history on file. [...] mg of acetaminophen in 24 hours. (Patient takchelle ng differently: Take 500-1,000 mg by mouth [...] 1 DROP INTO RIGHT EYE AT BEDTIME [facility] Urostomy supplies and accessories Dispense one month [...] by mouth daily a s needed. Vit A,C,K-Zdil-Somkvp (PRESERVISION AREDS) 14,320-226-200 aoto-fg-fbsl cap Take 2 capsules by mouth daily. [...] with the present plan. Patient has the [facility] numbers for the [facility] and was instructed on how to contact us with an y questions or concerns. This patient was seen and dicussed with my collaborating provider Dr. Kehinde Díaz aft DO. Laina Cheney MSN, TOBACCO HANGER, AGCNS-BC, AGPCNP-BC Advanced Practice Provider Colon and Rectal Surgery Surgical Oncology [place] for Dr. Cao, Dr. Morel and Dr. Danielle Pager: [phone] Available via Voalte and [employer]ellaService[employer] CONSULTANT documented in this encounter Procedure Notes * Simba Gonzalez MD - 07/12/2021 11:14 PM ART CONSULTANT Brief Procedure Note Date: 07/12/20 Procedure: radial arterial line insertion Primary Surgeon: Dr. Cao Boat Outfitter: Simba Gonzalez MD Indications: Need for hemodynamic [...] of Emergency Medicine Voalte preferred | Callback [phone] CONSULTANT * Scott Garcia MD - 07/12/2021 2:10 PM ART CONSULTANT Brief Operative Note Name: Chemo Jenkins is a 71 y.o. 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] Procedure(s): EXPLORATORY LAPAROTOMY, DIVERTING LOOP COLOSTOMY Surgeon(s) and Role: * Kehinde Cao DO - Primary * Scott Garcia MD - Resident - Assisting Findings: Peritoneal metastasis, mesenteric tethering Estimated Blood Loss: 20ml Specimen(s) Removed/Disposition: * No specimens in log * Complications: None Implants: ostomy bridge Drains: colostomy, urostomy Disposition: PACU - stable Scott Garcia MD Pager [phone] CONSULTANT documented in this encounter Consult Notes * Anju Mcgowan MD - 07/16/2021 3:26 PM ART CONSULTANT Associated Order(s): CONSULT ADULT PALLIATIVE CARE PROVIDER [...] and cerebellar infarcts with a large left ELECTRIC INSTALLER t erritory infarct. MRI 07/13 showed multifocal cerebral and cerebellar infarcts wi th a dominant large left ELECTRIC INSTALLER territory infarct. He sees Dr Louie as [...] would be highly likely to in the [place] dst of the trauma of a code- [...] nixon ffered multiple strokes including a sizable ELECTRIC INSTALLER stroke. Chemo denies any curren t symptoms [...] 06/04/2020 Performed by Keith Trinidad MD at [facility] OR PERCUTANEOUS NEPHROSTOLITHOTOMY/ PYELOSTOLITHOTOMY - 2 CM OR LESS Right 11/12 Performed by Tristan Bowman MD at [facility] OR URETEROSCOPY WITH URETERAL STENT EXCHANGE Right 02/15/2021 Performed by Tristan Bowman MD at [facility] OR PERCUTANEOUS NEPHROSTOLITHOTOMY/ PYELOSTOLITHOTOMY - GREATER THAN 2 CM Left 04/29/2021 Performed by Kvng Rm MD at [facility] OR PERCUTANEOUS PLACEMENT NEPHROSTOMY CATHETER WITH NEPHROSTOGRAM/ URETEROGRAM/ IMAGE-GUIDANCE Left 04/29/2021 Performed by Kvng Rm MD at [facility] OR CYSTOURETHROSCOPY WITH URETEROSCOPY AND/ OR PYELOSCOPY - WITH REMOVAL/ MANIP ULATION CALCULUS Left 04/29/2021 Performed by Kvng Rm MD at [facility] OR EXPLORATORY LAPAROTOMY, DIVERTING LOOP COLOSTOMY N/A 07/12/2021 Performed by Kehinde Cao DO at [facility] OR Social History Tobacco Use Smoking status: Never Smoker Smokeless tobacco: Never Used Vaping Use Vaping Use: Never used Substance Use Topics Alcohol use: Not Currently Drug use: Not Currently Social History Social History Narrative Not on file 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 No pertinent family [...] cerebellar infarcts with a dominant large left ELECTRIC INSTALLER territory infarct. This appears represent a combination [...] MRA head: 1. Occlusion of the left ELECTRIC INSTALLER at the level of the mid to distal P2 segment (corresponding to the large left ELECTRIC INSTALLER territory infarct). 2. Otherwise patent major intracranial [...] care and treatment options 70 minutes >50% counseling services manager and coordination of care Staff name: Anju Mcgowan MD Date: 07/16/2021 C * Danyel Sosa MD - 07/15/2021 9:45 AM ART CONSULTANT Associated Order(s): CONSULT REHABILITATION MEDICINE PHYSICIAN Physical Medicine & Rehabilitation Consult Service Date of Service: 07/15/2021 Chemo Jenkins is a 71 y.o.. : 1950 Financial Class: Payor: MEDICARE / Plan: MEDICARE PART A AND B / Product Type: edicare / Date of Admission: 07/12/2021 Referring Physician: Kehinde Cao DO Reason for Consult: evaluate for Post-Acute Rehab/Placement Precautions: Fall Assessment & Plan: Principal Problem: Colon obstruction (HCC) Active Problems: ITA (acute kidney injury) (HCC) Acute ischemic stroke (HCC) Acute right hemiparesis (HCC) Homonymous hemianopia, right Hypovolemia Encephalopathy Multifocal embolic strokes Left ELECTRIC INSTALLER stroke Gait abnormality Impaired mobility/ADLs Impaired transfers Cognitive Deficits Chemo Jenkins is a 71 y.o. year old male admitted to [facility] on 07/12/2021 with the following issues: Multifocal embolic and left ELECTRIC INSTALLER strokes with right hemiparesis, cognitive defici ts [...] setting of multi focal embolic and left ELECTRIC INSTALLER stroke with associated aphasia, cognitive deficits, d [...] the rectum with colonic obstruction presenting to [facility] on 07/12 for scheduled exploratory laparotomy with [...] ebellar and cerebral infarcts with large left ELECTRIC INSTALLER territory infarct likely embol ic in nature [...] 06/04/2020 Performed by Keith Trinidad MD at [facility] OR PERCUTANEOUS NEPHROSTOLITHOTOMY/ PYELOSTOLITHOTOMY - 2 CM OR LESS Right 11/12 Performed by Tristan Bowman MD at [facility] OR URETEROSCOPY WITH URETERAL STENT EXCHANGE Right 02/15/2021 Performed by Tristan Bowman MD at [facility] OR PERCUTANEOUS NEPHROSTOLITHOTOMY/ PYELOSTOLITHOTOMY - GREATER THAN 2 CM Left 04/29/2021 Performed by Kvng Rm MD at [facility] OR PERCUTANEOUS PLACEMENT NEPHROSTOMY CATHETER WITH NEPHROSTOGRAM/ URETEROGRAM/ IMAGE-GUIDANCE Left 04/29/2021 Performed by Kvng Rm MD at [facility] OR CYSTOURETHROSCOPY WITH URETEROSCOPY AND/ OR PYELOSCOPY - WITH REMOVAL/ MANIP ULATION CALCULUS Left 04/29/2021 Performed by Kvng Rm MD at [facility] OR EXPLORATORY LAPAROTOMY, DIVERTING LOOP COLOSTOMY N/A 07/12/2021 Performed by Kehinde Cao DO at [facility] OR Social History Socioeconomic History Marital [...] out with his L hand on command. 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 Admission Date: 07/12/2021 LOS: 1 day Recommendation: ADAT to goal regular diet. Please encourage high-kcal high-protein unit shakes: High Protein Shake Ideas ? Vanilla 1 vanilla [place] Instant Breakfast + 2 vanilla ice creams + 1 vanil la Boost ? Very Chocolate 1 chocolate [place] Instant Breakfast + 2 chocolate ice cream s + 1 chocolate Boost ? Chocolate Raspberry 3 pkg Beneprotein + 1 raspberry sherbet + 1 chocolate Dipesh t ? Chocolate Peanut Butter 2 pkg Beneprotein + 1 chocolate milk + 2 chocolate ic e creams + 2 pkg peanut butter ? [place] Shake 3 pkg Beneprotein + 1 vanilla ice cream + 1 peach Boost Breeze ? [place] Socrates 3 pkg Beneprotein + 2 orange sherbet + 1 vanilla Boost ? Chocolate Banana 3 pkg Beneprotein+ 1 chocolate milk + 2 chocolate ice creams + 1/2 banana ? Vanilla Peanut Butter Banana 3 pkg Beneprotein + 2 vanilla ice creams + 1 pkg peanut butter + 1/2 banana + 1 vanilla Boost ? Edwards 1 strawberry [place] Instant Breakfast + 2 vanilla ice creams + 1 strawberry Boost ? Chocolate Peanut Butter Banana 3 pkg Beneprotein + 2 chocolate ice creams + 1 pkg peanut butter + 1/2 banana + 1 chocolate Boost ? Lemon Cream 2 pkg Beneprotein + 2 Citizen [place] ice lemon (partially melted) + 1 van illa ice cream + 1 whole milk ? Gonzalez Slush 1 pkg Prosource + 1 pkg Beneprotein + 2 Citizen [place] ice gonzalez (parti ally melted) Comments: Mr. [...] Current Oral Intake: NPO Estimated Calorie Needs: 4319-0226 (30-35 kcal/kg) Estimated Protein Needs: 97 (1.5 [...] Time Frame: Within 72 hours Kely Hernandez, , RDN, LD, CNSC Available via Voalte [id number] CONSULTANT * Marisol Sky RN - 07/13/2021 10:00 AM ART CONSULTANT Associated Order(s): CONSULT WOUND/OSTOMY TEAM NURSE Images [...] Suggested Pouching Supplies: Urostomy - 2 piece 86144, 27833 Colostomy - 1 piece Jhoana colostomy pouch 64672 or 8976 1. Change pouch with any sign of leaking 2. Clean skin with water only - no soap or wipes 3. If skin is broken down surrounding stoma, sprinkle stoma powder and wipe aw ay the excess. 4. Alexander no sting skin prep on powdered skin [...] With My Assessment? 07/13/21 1200 Stoma Assessment Salmon, round, protruding 07/13/21 1000 Peristomal Skin Assessment [...] Wound Ostomy Nursing Consult Service Available via Voalte Text or SNOBSWAP M-F [phone] Office number [phone] Contact Team "Livestock Nutritionist" after 4:00pm M-F/weekends/holidays CONSULTANT * Vivi Stoddard MD - 07/13/2021 5:00 AM ART CONSULTANT Associated Order(s): CONSULT CARDIOLOGY PHYSICIAN CARDIOLOGY CONSULT [...] persists or worsens. Assessment & Recs Chemo Jenkins is a 71 y.o. patient [...] After 5PM please call Cardiology fel low certified low vision therapist. Monday - Monday 8AM-5PM please call Cardiology consult pager. Valentina Venegas Fellow, Cardiovascular Medicine Pager: [phone] I personally took the history, examined the [...] to his and son. [facility] [...] RIGHT EYE AT BEDTIME [employer] [facility] Urostomy supplies and accessories Dispense one month [...] by mouth daily a s needed. Vit A,C,U-Udbj-Qgdnof (PRESERVISION AREDS) 14,320-226-200 awkk-cs-wsvg cap Take 2 capsules by mouth daily. [...] 06/04/2020 Performed by Keith Trinidad MD at [facility] OR PERCUTANEOUS NEPHROSTOLITHOTOMY/ PYELOSTOLITHOTOMY - 2 CM OR LESS Right 11/12 Performed by Tristan Bowman MD at [facility] OR URETEROSCOPY WITH URETERAL STENT EXCHANGE Right 02/15/2021 Performed by Tristan Bowman MD at [facility] OR PERCUTANEOUS NEPHROSTOLITHOTOMY/ PYELOSTOLITHOTOMY - GREATER THAN 2 CM Left 04/29/2021 Performed by Kvng Rm MD at [facility] OR PERCUTANEOUS PLACEMENT NEPHROSTOMY CATHETER WITH NEPHROSTOGRAM/ URETEROGRAM/ IMAGE-GUIDANCE Left 04/29/2021 Performed by Kvng Rm MD at [facility] OR CYSTOURETHROSCOPY WITH URETEROSCOPY AND/ OR PYELOSCOPY - WITH REMOVAL/ MANIP ULATION CALCULUS Left 04/29/2021 Performed by Kvng Rm MD at [facility] OR Social History Social History Socioeconomic [...] Screen NEG Electronic Crossmatch YES Unit Number [id number] Blood Component Type RBC,ADSOL,LEUKO REDUCED,2ND CONT. Unit Division 00 Status OF Unit TRANSFUSED ISSUE DATE TIME PRODUCT CODE B4614B45 BLOOD TYPE O NEG CODING STATUS 9500 BLOOD EXPIRATION DATE Transfusion Status OK TO TRANSFUSE Crossmatch Result COMPATIBLE,ELECTRONIC Unit Number [id number] Blood Component Type RBC,ADSOL,LEUKO REDUCED,2ND CONT. Unit Division 00 Status OF Unit TRANSFUSED ISSUE DATE TIME PRODUCT CODE Q8231H88 BLOOD TYPE O NEG CODING STATUS 9500 BLOOD EXPIRATION DATE Transfusion Status OK TO TRANSFUSE Crossmatch Result COMPATIBLE,ELECTRONIC POC BLOOD GAS ARTERIAL Collection Time: 07/12/21 8:50 PM Result Value Ref Range PH-ART-POC 7.39 7.35 - 7.45 GDT9-WRI-RJT 32 (L) 35 - 45 MMHG PO2-ART-POC 103 (H) 80 - 100 MMHG Base Def-ART-POC 6.0 MMOL/L O2 Sat-ART-POC 98.0 95 - 99 % Rhtbzalpzyw-RFM-UFP 19.1 (L) 21 - 28 MMOL/L POC [...] Ref Range Units Ordered 1 Unit Number [id number] Blood Component Type CRY 5 POOLED Unit Division 00 Status OF Unit TRANSFUSED ISSUE DATE TIME PRODUCT CODE W9040M50 BLOOD TYPE O POS CODING STATUS 5100 BLOOD EXPIRATION DATE Transfusion Status OK TO TRANSFUSE PREPARE APHERESIS PLATELETS Collection Time: 07/12/21 10:20 PM Result Value Ref Range Units Ordered 1 Unit Number [id number] Blood Component Type APHERESIS PLT,LEUKO REDUCED, BACTERIAL MONITOR 7D, IRRADIATED,2ND CONT Unit Division 00 Status OF Unit TRANSFUSED ISSUE DATE TIME PRODUCT CODE Y0699V98 BLOOD TYPE A NEG CODING STATUS 0600 [...] Ref Range Units Ordered 2 Unit Number [id number] Blood Component Type THAWED PLASMA Unit Division 00 Status OF Unit ISSUED ISSUE DATE TIME PRODUCT CODE R3164G65 BLOOD TYPE B POS CODING STATUS 7300 BLOOD EXPIRATION DATE Transfusion Status OK TO TRANSFUSE Unit Number [id number] Blood Component Type APHERESIS PLASMA THAWED Unit Division 00 Status OF Unit ISSUED ISSUE DATE TIME PRODUCT CODE P0762W35 BLOOD TYPE B POS CODING STATUS 7300 [...] Sat-Arterial 94.9 (L) 95 - 99 % Vrfxdjfqrzr-SFS-Jdi 23.9 21 - 28 MMOL/L CBC Collection [...] 9 - 35 MCMOL/L Glucose: (!) 126 (07/13/21114) POC Glucose (Download): (!) 116 (07/12/212050) CONSULTANT documented in this encounter OR Notes * Operative Report (Direct Entry) - Kehinde Cao DO - 07/12/2021 12:53 PM ART CONSULTANT OPERATIVE REPORT Name: Chemo Jenkins is a 71 y.o. male : 1950 DATE OF OPERATION: 07/12/2021 Surgeon(s) and Role: * Kehinde Cao, DO - Primary * Scott Garcia MD [...] ught up through the defect using a Mcdonald drain. The midline fascia was then c [...] PACU - stable Scott Garcia MD Pager [phone] ATTESTATION I performed this procedure with a resident. and I was present for the entire pro cedure. Staff name: Kehinde Cao DO Date: 07/14/2021 CONSULTANT documented in this encounter Miscellaneous Notes * Care Plan - Joseph Hawkins RN - 07/17/2021 6:42 PM ART CONSULTANT Problem: Skin Integrity Goal: Skin integrity intact [...] 07/17/2021 1840) Cognitive status restored to baseline: [place] patient to reality Promote rest Complete delirium assessment scale Assess patient history Reduce delirium risk Problem: Nutrition Deficit Goal: Adequate nutritional intake Flowsheets (Taken 07/17/2021 1840) Adequate nutritional intake: Promote oral fluid intake Assess dietary preferences CONSULTANT * Response Teams - Farzana Ambriz RN - 07/14/2021 10:23 AM ART CONSULTANT Patient stroke activated for increased right sided weakness, deviation and extin ction. On arrival with neuro team, patient improved from yesterday. Stroke activ ation cancelled per Otf Vines APRN. CONSULTANT * Acute Stroke Response - Liliana Low RN - 07/13/2021 1:13 PM ART CONSULTANT RN Stroke Activation Summary Date of Service: 07/13/2021 Chemo Jenkins is a 71 y.o. male. : 1950 MR N#: [id number] Allergies: Tegaderm, Erythromycin, and Readyprep chg [chlorhexidine gluconate] ASRT Arrival: 1232 Location of Response : 7772 Page Received: 1220 Clinical Presentation: Ataxia, Right [...] obtained by primary team where a left ELECTRIC INSTALLER infarct was found. Patient had surgery yesterday [...] 06/04/2020 Performed by Keith Trinidad MD at [facility] OR PERCUTANEOUS NEPHROSTOLITHOTOMY/ PYELOSTOLITHOTOMY - 2 CM OR LESS Right 11/12 Performed by Tristan Bowman MD at [facility] OR URETEROSCOPY WITH URETERAL STENT EXCHANGE Right 02/15/2021 Performed by Tristan Bowman MD at [facility] OR PERCUTANEOUS NEPHROSTOLITHOTOMY/ PYELOSTOLITHOTOMY - GREATER THAN 2 CM Left 04/29/2021 Performed by Kvng Rm MD at [facility] OR PERCUTANEOUS PLACEMENT NEPHROSTOMY CATHETER WITH NEPHROSTOGRAM/ URETEROGRAM/ IMAGE-GUIDANCE Left 04/29/2021 Performed by Kvng Rm MD at [facility] OR CYSTOURETHROSCOPY WITH URETEROSCOPY AND/ OR PYELOSCOPY - WITH REMOVAL/ MANIP ULATION CALCULUS Left 04/29/2021 Performed by Kvng Rm MD at [facility] OR Social History Socioeconomic History Marital [...] Narrative Not on file Liliana Low RN CONSULTANT * Acute Stroke Response - Otf Vines APRN-ANN - 07/13/2021 1:07 PM ART CONSULTANT NAME:Chemo Jenkins :1950 AGE: 71 y.o. ADMISSION [...] a dominant moderate to larg e left ELECTRIC INSTALLER territory infarct. At that time the stroke team was activated. NIHSS on arrival was 7 for disorientation, R side drift, R homonymous hemianopia and L side extinction deficit. Elevated Creatinine prevented us from getting CTA head and neck. Impression: Likely Subacute ischemic stroke, likely embolic due to multiple vasc ular territory involvement Suspected localization of Stroke Sx: Left ELECTRIC INSTALLER territory Suspected etiology: Cardio Embolism Pre-event mRS: [...] ASA daily - CBC, BMP routine - PT/OT/CHIEF ENGINEER'S HELPER consult eval and treat - Rehab consult for assessment of post stroke care The patient was seen and discussed with Dr. Joshua Vines APRN-DOUBLER OPERATOR Vascular Neurology History of Present [facility] History of Present Illness: Mr. Jenkins is [...] ASRT Arrival: 1232 Location of Response : [id number] Page Received: 4258 CT/CTP/CTA: BP: 108/65 (07/13 1200) Temp: 36.6 [...] language) 2=neither correct 2 1c. 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 (other 1 step [...] 06/04/2020 Performed by Keith Trinidad MD at [facility] OR PERCUTANEOUS NEPHROSTOLITHOTOMY/ PYELOSTOLITHOTOMY - 2 CM OR LESS Right 11/12 Performed by Tristan Bowman MD at [facility] OR URETEROSCOPY WITH URETERAL STENT EXCHANGE Right 02/15/2021 Performed by Tristan Bowman MD at [facility] OR PERCUTANEOUS NEPHROSTOLITHOTOMY/ PYELOSTOLITHOTOMY - GREATER THAN 2 CM Left 04/29/2021 Performed by Kvng Rm MD at [facility] OR PERCUTANEOUS PLACEMENT NEPHROSTOMY CATHETER WITH NEPHROSTOGRAM/ URETEROGRAM/ IMAGE-GUIDANCE Left 04/29/2021 Performed by Kvng Rm MD at [facility] OR CYSTOURETHROSCOPY WITH URETEROSCOPY AND/ OR PYELOSCOPY - WITH REMOVAL/ MANIP ULATION CALCULUS Left 04/29/2021 Performed by Kvng Rm MD at [facility] OR History reviewed. No pertinent family [...] (Download): (!) 116 (07/12/212050) Pertinent radiology reviewed. CONSULTANT Associated attestation - Angela Lewis MD - 07/14/2021 10:35 AM ART CONSULTANT ATTESTATION I personally interviewed and examined the patient. I have reviewed the history, physical, impression and plan outlined by the Nurse Practitioner. The patient was stroke activated for visual alteration. 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 On examination there is lethargy, right homonomous hemianopia, drift RUE and RLE . My impression is embolic strokes. Remote hx of a fib but none on tele My plan is MRI head, mra head, carotid dopplers, continue aspirin. Staff name: Angela Lewis MD Date: 07/14/2021 * Response Teams - Dacia Yusuf RN - 07/12/2021 8:52 PM ART CONSULTANT Rapid Response Team Progress Note Date: 07/12/2021 Time: 9:22 PM Patient: Chemo Jenkins Attending: Kehinde Cao DO Service: Surgery-Oncology - 7496 Admission Date: 07/12/2021 LOS: 0 days A Code/Rapid Response Timeline Event Report has been created for this patient on 07/12 at 4 for AMS. ABG & labs obtained, Narcan administered. LR bolus ordered and administered. Surgery team at bedside for evaluation.VSS stabilized. WAITANGI TRIBUNAL MEMBER dismissed. WAITANGI TRIBUNAL MEMBER to follow up per protocol. Dacia Yusuf RN CONSULTANT * Care Plan - Alec Franklin RT - 07/12/2021 6:05 PM ART CONSULTANT RT Adult Assessment Note NAME:Chemo Jenkins :1950 [...] Sounds: Clear (Implies normal) Respiratory Effort: Non-Labored CONSULTANT documented in this encounter Plan of Treatment Date/Time Name Type Priority Associated Diag noses 07/12/2021 2:03 PM ART CONSULTANT POC ANES US GUIDED NERVE Imaging Routine BLOCK 07/12/2021 2:05 PM ART CONSULTANT POC ANES US GUIDED NERVE Imaging Routine [...] track (07/12/2021 Yes April Marie, 6:07 PM ART CONSULTANT) RN Note: "To heal and recover, and get stronger, be as healthy as I can" documented as of this encounter Procedures Comments Procedure Name Priority Date/Time Associated Diag nosis HC CBC,AUTOMATED Routine 07/20/2021 8:17 AM ART CONSULTANT HC PHOSPHOROUS, SERUM Routine 07/19/2021 2:42 AM ART CONSULTANT HC MAGNESIUM Routine 07/19/2021 2:42 AM ART CONSULTANT HC BASIC METABOLIC PANEL Routine 07/19/2021 2:42 AM ART CONSULTANT HC PHOSPHOROUS, SERUM Routine 07/17/2021 3:35 AM ART CONSULTANT HC MAGNESIUM Routine 07/17/2021 3:35 AM ART CONSULTANT HC BASIC METABOLIC PANEL Routine 07/17/2021 3:35 AM ART CONSULTANT HC CBC,AUTOMATED Routine 07/16/2021 4:40 AM ART CONSULTANT HC PHOSPHOROUS, SERUM Routine 07/16/2021 4:40 AM ART CONSULTANT HC MAGNESIUM Routine 07/16/2021 4:40 AM ART CONSULTANT HC BASIC METABOLIC PANEL Routine 07/16/2021 4:40 AM ART CONSULTANT PV CAROTID ARTERY DUPLEX Routine 07/15/2021 SCAN 9:04 AM ART CONSULTANT HC CBC,AUTOMATED Routine 07/15/2021 2:55 AM ART CONSULTANT HC PHOSPHOROUS, SERUM Routine 07/15/2021 2:55 AM ART CONSULTANT HC MAGNESIUM Routine 07/15/2021 2:55 AM ART CONSULTANT HC BASIC METABOLIC PANEL Routine 07/15/2021 2:55 AM ART CONSULTANT POC GLUCOSE 07/14/2021 11:04 AM ART CONSULTANT HC HEMOGLOBIN A1C STAT 07/14/2021 6:45 AM ART CONSULTANT HC STAT 07/14/2021 LIPID-5:CHOL/TRG/HDL/LDL+ 6:45 AM ART CONSULTANT VLDL HC TROPONIN-I Routine 07/14/2021 5:56 AM ART CONSULTANT HC CBC,AUTOMATED Routine 07/14/2021 3:11 AM ART CONSULTANT HC PHOSPHOROUS, SERUM Routine 07/14/2021 3:11 AM ART CONSULTANT HC MAGNESIUM Routine 07/14/2021 3:11 AM ART CONSULTANT HC BASIC METABOLIC PANEL Routine 07/14/2021 3:11 AM ART CONSULTANT TRANSFUSE RBC'S STAT 07/14/2021 12:45 AM ART CONSULTANT TROPONIN-I Routine 07/14/2021 12:20 AM ART CONSULTANT MRA HEAD WO CONTRAST STAT 07/13/2021 10:54 PM ART CONSULTANT MRI HEAD WO CONTRAST STAT 07/13/2021 10:35 PM ART CONSULTANT HC CBC,AUTOMATED STAT 07/13/2021 9:21 PM ART CONSULTANT HC PHOSPHOROUS, SERUM STAT 07/13/2021 9:21 PM ART CONSULTANT HC MAGNESIUM STAT 07/13/2021 9:21 PM ART CONSULTANT HC LACTIC ACID(LACTATE) STAT 07/13/2021 9:21 PM ART CONSULTANT HC BLOOD STAT 07/13/2021 GASES;(CALCULATED 02) 9:21 PM ART CONSULTANT HC CALCIUM IONIZED STAT 07/13/2021 9:21 PM ART CONSULTANT BASIC METABOLIC PANEL STAT 07/13/2021 9:21 PM ART CONSULTANT TROPONIN-I 07/13/2021 6:01 PM ART CONSULTANT HC TROPONIN-I Routine 07/13/2021 12:[address] HEAD WO CONTRAST STAT 07/13/2021 11:54 AM ART CONSULTANT 2D + DOPPLER ECHO W/ GILDA 07/13/2021 CONTRAST 8:00 AM ART CONSULTANT CHEST SINGLE VIEW GILDA 07/13/2021 7:13 AM ART CONSULTANT TROPONIN-I Routine 07/13/2021 5:52 AM ART CONSULTANT CHEST SINGLE VIEW STAT 07/13/2021 3:33 AM ART CONSULTANT HC AMMONIA Routine 07/13/2021 3:00 AM ART CONSULTANT CBC Routine 07/13/2021 2:42 AM ART CONSULTANT HC BLOOD STAT 07/13/2021 GASES;(CALCULATED 02) 2:32 AM ART CONSULTANT TRANSFUSE PLASMA (FFP) STAT 07/13/2021 2:18 AM ART CONSULTANT HC TEG W KAOLIN R Routine 07/13/2021 ACTIVATED CLOTTING TIME 1:15 AM ART CONSULTANT HC TROPONIN-I Add on 07/13/2021 1:15 AM ART CONSULTANT HC CBC,AUTOMATED Routine 07/13/2021 1:15 AM ART CONSULTANT HC PHOSPHOROUS, SERUM Routine 07/13/2021 1:15 AM ART CONSULTANT HC MAGNESIUM Routine 07/13/2021 1:15 AM ART CONSULTANT HC LACTIC ACID(LACTATE) GILDA 07/13/2021 1:15 AM ART CONSULTANT HC CALCIUM IONIZED Routine 07/13/2021 1:15 AM ART CONSULTANT HC BASIC METABOLIC PANEL Routine 07/13/2021 1:15 AM ART CONSULTANT TRANSFUSE PLASMA (FFP) STAT 07/13/2021 12:23 AM ART CONSULTANT PREPARE PLASMA (FFP) STAT 07/13/2021 12:11 AM ART CONSULTANT TRANSFUSE CRYOPRECIPITATE STAT 07/12/2021 11:18 PM ART CONSULTANT TRANSFUSE APHERESIS STAT 07/12/2021 PLATELETS 11:17 PM ART CONSULTANT TRANSFUSE RBC'S STAT 07/12/2021 11:04 PM ART CONSULTANT CBC STAT 07/12/2021 10:50 PM ART CONSULTANT PREPARE APHERESIS Routine 07/12/2021 PLATELETS 10:20 PM ART CONSULTANT PREPARE CRYOPRECIPITATE STAT 07/12/2021 9:55 PM ART CONSULTANT TRANSFUSE RBC'S STAT 07/12/2021 9:40 PM ART CONSULTANT HC TEG W KAOLIN R STAT 07/12/2021 ACTIVATED CLOTTING TIME 9:15 PM ART CONSULTANT HC CBC,AUTOMATED STAT 07/12/2021 9:15 PM ART CONSULTANT HC PHOSPHOROUS, SERUM STAT 07/12/2021 9:15 PM ART CONSULTANT HC MAGNESIUM STAT 07/12/2021 9:15 PM ART CONSULTANT HC CALCIUM IONIZED STAT 07/12/2021 9:15 PM ART CONSULTANT HC COMPREHENSIVE STAT 07/12/2021 METABOLIC PANEL 9:15 PM ART CONSULTANT POC GLUCOSE 07/12/2021 8:51 PM ART CONSULTANT HC BLOOD GAS, POC 07/12/2021 8:50 PM ART CONSULTANT HC SODIUM, POC 07/12/2021 8:50 PM ART CONSULTANT HC POTASSIUM, POC 07/12/2021 8:50 PM ART CONSULTANT HC HEMATOCRIT POC 07/12/2021 8:50 PM ART CONSULTANT COLOSTOMY/ SKIN LEVEL 07/12/2021 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, unspecified site (HCC) HC ABO GROUP STAT 07/12/2021 11:45 AM ART CONSULTANT TELEMETRY STRIPS-SCAN 07/12/2021 12:00 AM ART CONSULTANT TELEMETRY STRIPS-SCAN 07/12/2021 12:00 AM ART CONSULTANT TELEMETRY STRIPS-SCAN 07/12/2021 12:00 AM ART CONSULTANT ECG-SCAN 07/12/2021 12:00 AM ART CONSULTANT ECG-SCAN 07/12/2021 12:00 AM ART CONSULTANT documented in this encounter Results * (ABNORMAL) CBC (07/20/2021 8:17 AM ART CONSULTANT) White Blood 11.0 4.5 - 11.0 K/UL [...] LAB Specimen Blood (substance) Performing Organization Address City/[facility]/ZIP Code P dg Number [facility] [address] [phone] * PHOSPHORUS (07/19/2021 2:42 AM ART CONSULTANT) Phosphorus 3.4 2.0 - 4.5 MG/DL [facility] Specimen Blood (substance) Performing Organization Address City/[facility]/ZIP Code P dg Number [facility] [address] [place] [address] * MAGNESIUM (07/19/2021 2:42 AM ART CONSULTANT) Magnesium 1.9 1.6 - 2.6 mg/dL MAIN LAB Specimen Blood (substance) Performing Organization Address [facility]/ZIP [facility] P dg Number [facility] [address] [place] [address] * (ABNORMAL) BASIC METABOLIC PANEL (07/19/2021 2:42 AM ART CONSULTANT) Sodium 137 137 - 147 MMOL/L [facility] [...] equation Specimen Blood (substance) Performing Organization Address City/[facility]/ZIP Code P dg Number [facility] [address] [place] [address] * PHOSPHORUS (07/17/2021 3:35 AM ART CONSULTANT) Phosphorus 2.0 2.0 - 4.5 MG/DL [facility] Specimen Blood (substance) Performing Organization Address City/[facility]/ZIP Code P dg Number [facility] [address] [place] [address] * MAGNESIUM (07/17/2021 3:35 AM ART CONSULTANT) Magnesium 1.7 1.6 - 2.6 mg/dL [facility] Specimen Blood (substance) Performing Organization Address [facility] Code P dg Number [facility] [address] [place] [address] * (ABNORMAL) BASIC METABOLIC PANEL (07/17/2021 3:35 AM ART CONSULTANT) Sodium 133 (L) 137 - 147 MMOL/L [...] equation Specimen Blood (substance) Performing Organization Address [facility] Code P dg Number [facility] [address] [place] [address] * (ABNORMAL) PHOSPHORUS (07/16/2021 4:40 AM ART CONSULTANT) Phosphorus 1.7 (L) 2.0 - 4.5 MG/DL [facility] Specimen Blood (substance) Performing Organization Address [facility] P dg Number [facility] [address] [place] [address] * MAGNESIUM (07/16/2021 4:40 AM ART CONSULTANT) Magnesium 1.9 1.6 - 2.6 mg/dL [facility] Specimen Blood (substance) Performing Organization Address [facility] P dg Number [facility] [address] [place] [address] * (ABNORMAL) BASIC METABOLIC PANEL (07/16/2021 4:40 AM ART CONSULTANT) Sodium 136 (L) 137 - 147 MMOL/L [...] equation Specimen Blood (substance) Performing Organization Address [facility] P dg Number [facility] [address] [place] [address] * (ABNORMAL) CBC (07/16/2021 4:40 AM ART CONSULTANT) White Blood 9.1 4.5 - 11.0 K/UL [...] LAB MCHC 33.8 32.0 - 36.0 G/DL MAIN LAB RDW 15.5 (H) 11 - 15 % [facility] Platelet Count 109 (L) 150 - 400 K/UL MAIN LAB MPV 9.3 7 - 11 FL MAIN LAB Specimen Blood (substance) Performing Organization Address City/State/ZIP Code P dg Number MAIN LAB [address] [place] [address] * PV CAROTID ARTERY DUPLEX SCAN (07/15/2021 9:04 AM ART CONSULTANT) LEFT CCA DIST 0.83 m/s OTHER OUTSIDE [...] ECHO PV Leisa Frias, Student OTHER OUTSIDE SOLID WASTE DISPOSAL MANAGER LAB Cardiology Sherri Epiq OTHER OUTSIDE Ultrasound LAB Machine RIGHT ICA/CCA 0.95 m/s OTHER OUTSIDE SYS LAB LEFT ICA/CCA 0.92 m/s OTHER OUTSIDE SYS LAB Modality Anatomical Region Laterality Ultrasound Specimen Narrative OTHER OUTSIDE LAB - 07/15/2021 10:14 AM ART CONSULTANT 1. Minimal atheromatous changes visualized in bilateral common and internal carotid arteries without hemodynamically significant (>50%) stenosis. 2. There is normal antegrade flow in tahmina ateral vertebral arteries 3. No evidence of proximal subclavian st enosis bilaterally No prior studies available for comparison. Performing Organization Address City/State/ZIP Code P dg Number OTHER OUTSIDE LAB * PHOSPHORUS (07/15/2021 2:55 AM ART CONSULTANT) Phosphorus 2.0 2.0 - 4.5 MG/DL [facility] Specimen Blood (substance) Performing Organization Address City/[facility]/ZIP Code P dg Number [facility] [address] [phone] * MAGNESIUM (07/15/2021 2:55 AM ART CONSULTANT) Magnesium 2.3 1.6 - 2.6 mg/dL [facility] Specimen Blood (substance) Performing Organization Address City/[facility] P dg Number [facility] [address] [phone] * (ABNORMAL) BASIC METABOLIC PANEL (07/15/2021 2:55 AM ART CONSULTANT) Sodium 140 137 - 147 MMOL/L [facility] [...] equation Specimen Blood (substance) Performing Organization Address City/[facility]/ZIP Code P dg Number [facility] [address] [phone] * (ABNORMAL) CBC (07/15/2021 2:55 AM ART CONSULTANT) White Blood 9.5 4.5 - 11.0 K/UL [...] Count 100 (L) 150 - 400 K/UL [facility] MPV 9.3 7 - 11 FL [facility] Specimen Blood (substance) Performing Organization Address City/[facility]/ZIP Code P dg Number [facility] [address] [place] [address] * (ABNORMAL) POC GLUCOSE (07/14/2021 11:04 AM ART CONSULTANT) Glucose, POC 118 (H) 70 - 100 MG/DL [facility] Specimen Performing Organization Address City/[facility]/ZIP Code P dg Number [facility] [address] [place] [address] * HEMOGLOBIN A1C (07/14/2021 6:45 AM ART CONSULTANT) Hemoglobin A1C 5.6 4.0 - 6.0 % [facility] Comment: The ADA recommends that most patients with type 1 and type 2 diabetes maintain an A1c level <7%. Specimen Blood (substance) Performing Organization Address City/[facility]/ZIP Code P dg Number [facility] [address] [phone] * (ABNORMAL) LIPID PROFILE (07/14/2021 6:45 AM ART CONSULTANT) Cholesterol 87 <200 MG/DL [facility] [...] mg/dL. Specimen Blood (substance) Performing Organization Address [facility] P dg Number [facility] [address] [phone] * (ABNORMAL) TROPONIN-I (07/14/2021 5:56 AM ART CONSULTANT) Troponin-I 0.60 (H) 0.0 - 0.05 NG/ML [facility] Specimen Blood (substance) Performing Organization Address [facility] P dg Number [facility] [address] [phone] * PHOSPHORUS (07/14/2021 3:11 AM ART CONSULTANT) Phosphorus 3.0 2.0 - 4.5 MG/DL [facility] Specimen Blood (substance) Performing Organization Address [facility] P dg Number [facility] [address] [phone] * MAGNESIUM (07/14/2021 3:11 AM ART CONSULTANT) Magnesium 2.5 1.6 - 2.6 mg/dL [facility] Specimen Blood (substance) Performing Organization Address [facility] P dg Number [facility] [address] [phone] * (ABNORMAL) BASIC METABOLIC PANEL (07/14/2021 3:11 AM ART CONSULTANT) Sodium 139 137 - 147 MMOL/L [facility] [...] equation Specimen Blood (substance) Performing Organization Address [facility] Code P dg Number MAIN LAB [address] [place] [address] * (ABNORMAL) CBC (07/14/2021 3:11 AM ART CONSULTANT) White Blood 10.6 4.5 - 11.0 K/UL [...] LAB Specimen Blood (substance) Performing Organization Address [facility] P dg Number [facility] [address] [place] [address] * TRANSFUSE RBC'S (07/14/2021 2:52 AM ART CONSULTANT) Specimen Blood (substance) * TRANSFUSE RBC'S (07/14/2021 2:52 AM ART CONSULTANT) Specimen Blood (substance) * (ABNORMAL) TROPONIN-I (07/14/2021 12:20 AM ART CONSULTANT) Troponin-I 0.73 (H) 0.0 - 0.05 NG/ML MAIN LAB Specimen Blood (substance) Performing Organization Address [facility] P dg Number MAIN LAB [address] [place] [address] * MRA HEAD WO CONTRAST (07/13/2021 10:54 PM ART CONSULTANT) Modality Anatomical Region Laterality Magnetic Resonance Head Specimen Addenda Addendum by Kehinde Parks MD on 07/14/2021 4:55 AM ART CONSULTANT Finalized by Kehinde Parks M.D. on 07/14/2021 12:32 AM. Dictated by Kehinde Hicks M.D. on 07/14/2021 12:08 AM.Addendum: Dr. Hicks discussed these findings with the patient's nurse Priti by telephone at 12:36 AM 07/14/2021 Approved by Kehinde Hicks M.D. on 07/14/2021 12:36 AM By my electronic signature, I attest that I have personally reviewed the images for this examination and formulated the interpretations and opinions expressed in this report Finalized by Kehinde Parks M.D. on 07/14/2021 4:52 AM. Dictated by Kehinde Hicks M.D. on 07/14/2021 12:35 AM. Impressions [facility] RAD RESULTS - 07/14/2021 12:32 AM ART CONSULTANT MR brain: 1. Redemonstration of recent multifoca l cerebral and cerebellar infarcts with a dominant large left ELECTRIC INSTALLER territory infarct. This appears represent a combination [...] MRA head: 1. Occlusion of the left ELECTRIC INSTALLER at the leve l of the mid to distal P2 segment (corresponding to the large left ELECTRIC INSTALLER territory infarct). 2. Otherwise patent major intracranial a rteries without focal stenosis. By my electronic signature, I attest that I have personally reviewed the images for this examination and formulated the interpretations and opinions expressed in this report Narrative [facility] RAD RESULTS - 07/14/2021 12:32 AM ART CONSULTANT EXAM: MRI AND MRA BRAIN HISTORY: left ELECTRIC INSTALLER infarct, TECHNIQUE: Multiplanar and multisequence MR imaging of the head was performed. This was done without contrast. 3D [id number] images of the jackson of [place] was performed without contrast. MRA maximum intensity projection images were obtained of the brain with image postprocessing. COMPARISON: CT head 07/13/2021 FINDINGS: Dr. Kehinde Parks M.D. has personally reviewed these images and formulated the interpretations and opinions expressed in this report. MR brain: Mild generalized cerebral volume loss and prominence of the ventricles and subarachnoid spaces. There is no midline shift or mass effect. The major vascular flow-voids of the jackson of [place] and dural venous sinuses are unremarkable. Redemonstration of recent large left ELECTRIC INSTALLER territory infarct. There are additional multifocal smaller [...] occlusion/loss of flow void within the left ELECTRIC INSTALLER at the level of the mid to distal P2 segment. Portions of the left P3 and P4 segments also show absent flow voids. The anterior, middle, and right posterior cerebral arteries are patent without focal narrowing. No aneurysm or arteriovenous malformation is identified. Procedure Note Kehinde Parks MD - 07/14/2021 EXAM: MRI AND MRA BRAIN HISTORY: left ELECTRIC INSTALLER infarct, TECHNIQUE: Multiplanar and multisequence MR imaging of the head was performed. This was done without contrast. 3D [id number] images of the jackson of [place] was performed without contrast. MRA maximum intensity projection images were obtained of the brain with image postprocessing. COMPARISON: CT head 07/13/2021 FINDINGS: Dr. Kehinde Parks M.D. has personally reviewed these images and formulated the interpretations and opinions expressed in this report. MR brain: Mild generalized cerebral volume loss and prominence of the ventricles and subarachnoid spaces. There is no midline shift or mass effect. The major vascular flow-voids of the jackson of [place] and dural venous sinuses are unremarkable. Redemonstration of recent large left ELECTRIC INSTALLER territory infarct. There are additional multifocal smaller [...] occlusion/loss of flow void within the left ELECTRIC INSTALLER at the level of the mid to distal P2 segment. Portions of the left P3 and P4 segments also show absent flow voids. The anterior, middle, and right posterior cerebral arteries are patent without focal narrowing. No aneurysm or arteriovenous malformation is identified. IMPRESSION MR brain: 1. Redemonstration of recent multifocal cerebral and cerebellar infarcts with a dominant large left ELECTRIC INSTALLER territory infarct. This appears represent a combination [...] MRA head: 1. Occlusion of the left ELECTRIC INSTALLER at the leve l of the mid to distal P2 segment (corresponding to the large left ELECTRIC INSTALLER territory infarct). 2. Otherwise patent major intracranial a rteries without focal stenosis. By my electronic signature, I attest that I have personally reviewed the images for this examination and formulated the interpretations and opinions expressed in this report Performing Organization Address City/State/ZIP Code P dg Number [facility] RESULTS * MRI HEAD WO CONTRAST (07/13/2021 10:35 PM ART CONSULTANT) Modality Anatomical Region Laterality Magnetic Resonance Head Specimen Addenda Addendum by Kehinde Parks MD on 07/14/2021 4:55 AM ART CONSULTANT Finalized by Kehinde Parks M.D. on 07/14/2021 12:32 AM. Dictated by Kehinde Hicks M.D. on 07/14/2021 12:08 AM.Addendum: Dr. Hicks discussed these findings with the patient's nurse Priti by telephone at 12:36 AM 07/14/2021 Approved by Kehinde Hicks M.D. on 07/14/2021 12:36 AM By my electronic signature, I attest that I have personally reviewed the images for this examination and formulated the interpretations and opinions expressed in this report Finalized by Kehinde Parks M.D. on 07/14/2021 4:52 AM. Dictated by Kehinde Hicks M.D. on 07/14/2021 12:35 AM. Impressions [facility] RAD RESULTS - 07/14/2021 12:32 AM ART CONSULTANT MR brain: 1. Redemonstration of recent multifoca l cerebral and cerebellar infarcts with a dominant large left ELECTRIC INSTALLER territory infarct. This appears represent a combination [...] MRA head: 1. Occlusion of the left ELECTRIC INSTALLER at the leve l of the mid to distal P2 segment (corresponding to the large left ELECTRIC INSTALLER territory infarct). 2. Otherwise patent major intracranial a rteries without focal stenosis. By my electronic signature, I attest that I have personally reviewed the images for this examination and formulated the interpretations and opinions expressed in this report Narrative [facility] RAD RESULTS - 07/14/2021 12:32 AM ART CONSULTANT EXAM: MRI AND MRA BRAIN HISTORY: left ELECTRIC INSTALLER infarct, TECHNIQUE: Multiplanar and multisequence MR imaging of the head was performed. This was done without contrast. 3D zpyf-ju-ervktn images of the jackson of [place] was performed without contrast. MRA maximum intensity projection images were obtained of the brain with image postprocessing. COMPARISON: CT head 07/13/2021 FINDINGS: Dr. Kehinde Parks M.D. has personally reviewed these images and formulated the interpretations and opinions expressed in this report. MR brain: Mild generalized cerebral volume loss and prominence of the ventricles and subarachnoid spaces. There is no midline shift or mass effect. The major vascular flow-voids of the jackson of [place] and dural venous sinuses are unremarkable. Redemonstration of recent large left ELECTRIC INSTALLER territory infarct. There are additional multifocal smaller [...] occlusion/loss of flow void within the left ELECTRIC INSTALLER at the level of the mid to distal P2 segment. Portions of the left P3 and P4 segments also show absent flow voids. The anterior, middle, and right posterior cerebral arteries are patent without focal narrowing. No aneurysm or arteriovenous malformation is identified. Procedure Note Kehinde Parks MD - 07/14/2021 EXAM: MRI AND MRA BRAIN HISTORY: left ELECTRIC INSTALLER infarct, TECHNIQUE: Multiplanar and multisequence MR imaging of the head was performed. This was done without contrast. 3D afet-mf-ibhguo images of the jackson of [place] was performed without contrast. MRA maximum intensity projection images were obtained of the brain with image postprocessing. COMPARISON: CT head 07/13/2021 FINDINGS: Dr. Kehinde Parks M.D. has personally reviewed these images and formulated the interpretations and opinions expressed in this report. MR brain: Mild generalized cerebral volume loss and prominence of the ventricles and subarachnoid spaces. There is no midline shift or mass effect. The major vascular flow-voids of the jackson of [place] and dural venous sinuses are unremarkable. Redemonstration of recent large left ELECTRIC INSTALLER territory infarct. There are additional multifocal smaller [...] occlusion/loss of flow void within the left ELECTRIC INSTALLER at the level of the mid to distal P2 segment. Portions of the left P3 and P4 segments also show absent flow voids. The anterior, middle, and right posterior cerebral arteries are patent without focal narrowing. No aneurysm or arteriovenous malformation is identified. IMPRESSION MR brain: 1. Redemonstration of recent multifocal cerebral and cerebellar infarcts with a dominant large left ELECTRIC INSTALLER territory infarct. This appears represent a combination [...] MRA head: 1. Occlusion of the left ELECTRIC INSTALLER at the leve l of the mid to distal P2 segment (corresponding to the large left ELECTRIC INSTALLER territory infarct). 2. Otherwise patent major intracranial a rteries without focal stenosis. By my electronic signature, I attest that I have personally reviewed the images for this examination and formulated the interpretations and opinions expressed in this report Performing Organization Address [facility]/ZIP Code P dg Number [facility] RAD RESULTS * BLOOD GASES, ARTERIAL (07/13/2021 9:21 PM ART CONSULTANT) pH-Arterial 7.43 7.35 - 7.45 MAIN LAB pCO2-Arterial 40 35 - 45 MMHG KU MAIN LAB pO2-Arterial 89 80 - 100 MMHG KU MAIN LAB Base 2.1 MMOL/L MAIN LAB Excess-Arterial O2 Sat-Arterial 97.3 95 - 99 % MAIN LAB Bicarbonate-ART 26.3 21 - 28 MMOL/L MAIN LAB -Daniel Specimen Blood, arterial - Blood (substance) Performing Organization Address [facility] P dg Number MAIN LAB [address] [place] [address] * LACTIC ACID(LACTATE) (07/13/2021 9:21 PM ART CONSULTANT) Lactic Acid 0.9 0.5 - 2.0 MMOL/L MAIN LAB Specimen Blood (substance) Performing Organization Address [facility] P dg Number MAIN LAB [address] [place] [address] * IONIZED CALCIUM (07/13/2021 9:21 PM ART CONSULTANT) Ionized Calcium 1.17 1.0 - 1.3 MMOL/L MAIN LAB Specimen Blood (substance) Performing Organization Address [facility] P dg Number MAIN LAB [address] [place] [address] * PHOSPHORUS (07/13/2021 9:21 PM ART CONSULTANT) Phosphorus 3.1 2.0 - 4.5 MG/DL MAIN LAB Specimen Blood (substance) Performing Organization Address [facility] P dg Number MAIN LAB [address] [place] [address] * MAGNESIUM (07/13/2021 9:21 PM ART CONSULTANT) Magnesium 2.5 1.6 - 2.6 mg/dL MAIN LAB Specimen Blood (substance) Performing Organization Address [facility] P dg Number MAIN LAB [address] [place] [address] * (ABNORMAL) BASIC METABOLIC PANEL (07/13/2021 9:21 PM ART CONSULTANT) Pathologist [facility] Sodium 139 137 - 147 MMOL/L KU [...] equation Specimen Blood (substance) Performing Organization Address City/[facility]/ZIP Code P dg Number KU MAIN LAB [address] [place] [address] * (ABNORMAL) CBC (07/13/2021 9:21 PM ART CONSULTANT) Pathologist [facility] White Blood 10.4 4.5 - 11.0 K/UL [...] LAB MPV 9.0 7 - 11 FL MAIN LAB Specimen Blood (substance) Performing Organization Address City/[facility]/ZIP Code P dg Number KU MAIN LAB [address] [place] [address] * (ABNORMAL) TROPONIN-I (07/13/2021 6:01 PM ART CONSULTANT) Pathologist [facility] Troponin-I 0.84 (H) 0.0 - 0.05 NG/ML MAIN LAB Specimen Performing Organization Address City/[facility]/ZIP Code P dg Number KU MAIN LAB [address] [place] [address] * (ABNORMAL) TROPONIN-I (07/13/2021 12:17 PM ART CONSULTANT) Troponin-I 0.67 (H) 0.0 - 0.05 NG/ML MAIN LAB Specimen Blood (substance) Performing Organization Address City/State/ZIP Code P dg Number [facility] MAIN LAB [address] [place] [address] * CT HEAD WO CONTRAST (07/13/2021 11:54 AM ART CONSULTANT) Modality Anatomical Region Laterality Computed Tomography Head Specimen Impressions [facility] RAD RESULTS - 07/13/2021 12:16 PM ART CONSULTANT 1. 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 2. No evidence of hemorrhagic conversi on, midline shift, or herniation. Findings were discussed with Dr. Garcia by myself via telephone at 12:13 PM on 07/13/2021. Finalized by Dwaine Vo DO on 07/13/2021 12:16 PM. Dictated by Dwaine Vo DO on 07/13/2021 12:04 PM. Narrative [facility] RESULTS - 07/13/2021 12:16 PM ART CONSULTANT EXAM: CT HEAD HISTORY: Rule out stroke, visual difficulties. TECHNIQUE: Multiple contiguous axial images were obtained of the brain without intravenous contrast. COMPARISON: None. FINDINGS: Moderate to large focal area of parenchymal hypodensity, pardo-white matter dedifferentiation, and sulcal compression in the left posterior mesial temporal- occipital ELECTRIC INSTALLER territory with additional smaller foci of parenchymal hypodensity throughout the bilateral cerebral hemispheres (notably the right caudate, left frontal and parietal cortices, and posterior right occipital lobe), compatible with acute to subacute infarcts. There are also several small age-indeterminate bilateral cerebellar infarcts, the majority of which appear recent. Localize cerebral mass effect associated with the dominant left ELECTRIC INSTALLER territory infarct. No evidence of acute intracranial [...] in the left posterior mesial temporal- occipital ELECTRIC INSTALLER territory with additional smaller foci of parenchymal hypodensity throughout the bilateral cerebral hemispheres (notably the right caudate, left frontal and parietal cortices, and posterior right occipital lobe), compatible with acute to subacute infarcts. There are also several small age-indeterminate bilateral cerebellar infarcts, the majority of which appear recent. Localize cerebral mass effect associated with the dominant left ELECTRIC INSTALLER territory infarct. No evidence of acute intracranial [...] with a dominant moderate to large left ELECTRIC INSTALLER territory infarct. 2. No evidence of hemorrhagic conversio n, midline shift, or herniation. Findings were discussed with Dr. Garcia by myself via telephone at 12:13 PM on 07/13/2021. Finalized by Dwaine Vo DO on 07/13/2021 12:16 PM. Dictated by Dwaine Vo DO on 07/13/2021 12:04 PM. Performing Organization Address City/State/ZIP Code P gd Number [facility] RAD RESULTS * 2D + DOPPLER ECHO W/ CONTRAST (07/13/2021 8:00 AM ART CONSULTANT) IVS 0.85 0.6 - 1.0 cm OTHER [...] 34 OTHER OUTSIDE Index LAB Cardiology Siemens [id number] OTHER OUTSIDE Ultrasound LAB Machine Left Ventricle [...] OTHER OUTSIDE LAB - 07/13/2021 8:28 AM ART CONSULTANT Left Ventricle: The left ventricular size is [...] * CHEST SINGLE VIEW (07/13/2021 7:13 AM ART CONSULTANT) Modality Anatomical Region Laterality Computed Radiography Chest Specimen Impressions [facility] RAD RESULTS - 07/13/2021 9:23 AM ART CONSULTANT 1. Persistent tiny lucency within the ri ght lung apex that is suggestive of a tiny pneumothorax. Follow-up inspiration and expiration chest x-ray 2. Unchanged small right pleural effusio n and right lung base consolidation. Finalized by Bernard Sheikh M.D. on 07/13/2021 9:23 AM. Dictated by Bernard Sheikh M.D. on 07/13/2021 9:18 AM. Narrative [facility] RESULTS - 07/13/2021 9:23 AM ART CONSULTANT CHEST SINGLE VIEW Clinical Indication: R/o PTX. [...] RESULTS * (ABNORMAL) TROPONIN-I (07/13/2021 5:52 AM ART CONSULTANT) Troponin-I 0.49 (H) 0.0 - 0.05 NG/ML [facility] MAIN LAB Specimen Blood (substance) Performing Organization Address City/State/ZIP Code P dg Number [facility] MAIN LAB [address] [place] [address] * CHEST SINGLE VIEW (07/13/2021 3:33 AM ART CONSULTANT) Modality Anatomical Region Laterality Computed Radiography Chest Specimen Addenda Addendum by Kehinde Parks MD on 07/13/2021 5:18 AM ART CONSULTANT Finalized by Kehinde Parks M.D. on 07/13/2021 4:25 AM. Dictated by Kehinde Hicks M.D. on 07/13/2021 4:07 AM.Addendum: Dr. Hicks discussed these findings with the patient's nurse Priti by telephone at 4:27 AM 07/13/2021 Approved by Kehinde Hicks M.D. on 07/13/2021 4:28 AM By my electronic signature, I attest that I have personally reviewed the images for this examination and formulated the interpretations and opinions expressed in this report Finalized by Kehinde Parks M.D. on 07/13/2021 5:15 AM. Dictated by Kehinde Hicks M.D. on 07/13/2021 4:26 AM. Impressions [facility] RAD RESULTS - 07/13/2021 4:25 AM ART CONSULTANT 1. Mildly low right lung volume with [...] [facility] RAD RESULTS - 07/13/2021 4:25 AM ART CONSULTANT CHEST SINGLE VIEW INDICATION: Altered mental status. [...] normal with unremarkable mediastinal contours. Procedure Note Kehinde Parks MD - 07/13/2021 CHEST SINGLE VIEW [...] * TRANSFUSE PLASMA (FFP) (07/13/2021 3:12 AM ART CONSULTANT) * TRANSFUSE PLASMA (FFP) (07/13/2021 3:12 AM ART CONSULTANT) * AMMONIA (07/13/2021 3:00 AM ART CONSULTANT) Pathologist [facility] Ammonia 34 9 - 35 MCMOL/L [facility] MAIN LAB Specimen Blood (substance) Performing Organization Address City/State/ZIP Code P dg Number [facility] MAIN LAB [address] [place] [address] * (ABNORMAL) CBC (07/13/2021 2:42 AM ART CONSULTANT) White Blood 16.1 (H) 4.5 - 11.0 [...] LAB Specimen Blood (substance) Performing Organization Address [facility] Code P dg Number MAIN LAB [address] [place] [address] * (ABNORMAL) BLOOD GASES, ARTERIAL (07/13/2021 2:32 AM ART CONSULTANT) pH-Arterial 7.40 7.35 - 7.45 MAIN LAB pCO2-Arterial 38 35 - 45 MMHG MAIN LAB pO2-Arterial 72 (L) 80 - 100 MMHG KU MAIN LAB Base 0.6 MMOL/L MAIN LAB Deficit-Arteria l O2 Sat-Arterial 94.9 (L) 95 - 99 % MAIN LAB Bicarbonate-ART 23.9 21 - 28 MMOL/L MAIN LAB -Daniel Specimen Blood, arterial - Blood (substance) Performing Organization Address [facility] P dg Number MAIN LAB [address] [place] [address] * (ABNORMAL) TROPONIN-I (07/13/2021 1:15 AM ART CONSULTANT) Troponin-I 0.37 (H) 0.0 - 0.05 NG/ML MAIN LAB Specimen Performing Organization Address [facility] Code P dg Number MAIN LAB [address] [place] [address] * LACTIC ACID(LACTATE) (07/13/2021 1:15 AM ART CONSULTANT) Lactic Acid 1.3 0.5 - 2.0 MMOL/L MAIN LAB Specimen Blood (substance) Performing Organization Address [facility] P dg Number KU MAIN LAB [address] [place] [phone] * (ABNORMAL) PHOSPHORUS (07/13/2021 1:15 AM ART CONSULTANT) Phosphorus 5.7 (H) 2.0 - 4.5 MG/DL MAIN LAB Specimen Blood (substance) Performing Organization Address [facility] P dg Number KU MAIN LAB [address] [place] [phone] * MAGNESIUM (07/13/2021 1:15 AM ART CONSULTANT) Magnesium 2.5 1.6 - 2.6 mg/dL MAIN LAB Specimen Blood (substance) Performing Organization Address [facility] P dg Number KU MAIN LAB [address] [place] [address] * (ABNORMAL) CBC (07/13/2021 1:15 AM ART CONSULTANT) [facility] White Blood 18.3 (H) 4.5 - 11.0 [...] LAB Specimen Blood (substance) Performing Organization Address [facility] P dg Number KU MAIN LAB [address] [place] [address] * (ABNORMAL) BASIC METABOLIC PANEL (07/13/2021 1:15 AM ART CONSULTANT) [facility] Sodium 141 137 - 147 MMOL/L KU [...] equation Specimen Blood (substance) Performing Organization Address [facility]/ZIP Code P dg Number KU MAIN LAB [address] [place] [address] * TEG WITH KAOLIN (07/13/2021 1:15 AM ART CONSULTANT) Pathologist [facility] MA Kaolin 60.6 >49.9 MM REFERENCE LAB R Kaolin 3.1 <9.1 MIN REFERENCE LAB RK Kaolin 4.5 <12.1 MIN REFERENCE LAB K Kaolin 1.4 <3.1 MIN REFERENCE LAB Angle Kaolin 70.2 >54.9 DEG REFERENCE LAB Lysis30 0.0 <8.1 % REFERENCE LAB Specimen Blood (substance) Performing Organization Address City/[facility]/ZIP Code P dg Number REFERENCE LAB REFERENCE LAB See results for address. * IONIZED CALCIUM (07/13/2021 1:15 AM ART CONSULTANT) Ionized Calcium 1.09 1.0 - 1.3 MMOL/L KU MAIN LAB Specimen Blood (substance) Performing Organization Address [facility] P dg Number KU MAIN LAB [address] [place] [address] * TRANSFUSE PLASMA (FFP) (07/13/2021 12:51 AM ART CONSULTANT) * TRANSFUSE PLASMA (FFP) (07/13/2021 12:51 AM ART CONSULTANT) * TRANSFUSE CRYOPRECIPITATE (07/13/2021 12:34 AM ART CONSULTANT) * TRANSFUSE CRYOPRECIPITATE (07/13/2021 12:34 AM ART CONSULTANT) * PREPARE PLASMA (FFP) (07/13/2021 12:11 AM ART CONSULTANT) Pathologist [facility] Units Ordered 2 KU MAIN LAB Unit Number [id number] MAIN LAB Blood Component THAWED PLASMA KU MAIN LAB Type Unit Division 00 KU MAIN LAB Status OF Unit TRANSFUSED KU MAIN LAB ISSUE DATE TIME KU MAIN LAB PRODUCT CODE [id number] KU MAIN LAB BLOOD TYPE B POS MAIN LAB CODING STATUS 7300 KU MAIN LAB BLOOD KU MAIN LAB EXPIRATION DATE Transfusion OK TO TRANSFUSE KU MAIN LAB Status Unit Number [id number] KU MAIN LAB Blood Component APHERESIS PLASMA THAWED KU MAIN LAB Type Unit Division 00 KU MAIN LAB Status OF Unit TRANSFUSED KU MAIN LAB ISSUE DATE TIME KU MAIN LAB PRODUCT CODE [id number] MAIN LAB BLOOD TYPE B POS KU MAIN LAB CODING STATUS 7300 KU MAIN LAB BLOOD [id number] KU MAIN LAB EXPIRATION DATE Transfusion OK TO TRANSFUSE KU MAIN LAB Status Specimen Other (Specify) Performing Organization Address [facility] P dg Number KU MAIN LAB [address] [place] [address] * TRANSFUSE APHERESIS PLATELETS (07/13/2021 12:07 AM ART CONSULTANT) * TRANSFUSE APHERESIS PLATELETS (07/13/2021 12:07 AM ART CONSULTANT) * TRANSFUSE RBC'S (07/12/2021 11:29 PM ART CONSULTANT) Specimen Blood (substance) * TRANSFUSE RBC'S (07/12/2021 11:29 PM ART CONSULTANT) Specimen Blood (substance) * TRANSFUSE RBC'S (07/12/2021 11:28 PM ART CONSULTANT) Specimen Blood (substance) * TRANSFUSE RBC'S (07/12/2021 11:28 PM ART CONSULTANT) Specimen Blood (substance) * (ABNORMAL) CBC (07/12/2021 10:50 PM ART CONSULTANT) Pathologist [facility] White Blood 22.2 (H) 4.5 - 11.0 [...] Code P dg Number MAIN LAB [address] [place] [address] * PREPARE APHERESIS PLATELETS (07/12/2021 10:20 PM ART CONSULTANT) Pathologist [facility] Units Ordered 1 MAIN LAB Unit Number [id number] MAIN LAB Blood Component APHERESIS PLT,LEUKO REDUCED, KU MAIN LAB Type BACTERIAL MONITOR 7D, IRRADIATED,2ND CONT Unit Division 00 KU MAIN LAB Status OF Unit TRANSFUSED KU MAIN LAB ISSUE DATE TIME KU MAIN LAB PRODUCT CODE [id number] KU MAIN LAB BLOOD TYPE A NEG KU MAIN LAB CODING STATUS 0600 KU MAIN LAB BLOOD [id number] KU MAIN LAB EXPIRATION DATE Transfusion OK TO TRANSFUSE KU MAIN LAB Status Specimen Other (Specify) Performing Organization Address City/State/ZIP Code P dg Number K[facility] MAIN LAB [address] [place] [address] * PREPARE CRYOPRECIPITATE (07/12/2021 9:55 PM ART CONSULTANT) Units Ordered 1 KU MAIN LAB Unit Number [id number] KU MAIN LAB Blood Component CRY 5 POOLED KU MAIN LAB Type Unit Division 00 KU MAIN LAB Status OF Unit TRANSFUSED KU MAIN LAB ISSUE DATE TIME KU MAIN LAB PRODUCT CODE [id number] KU MAIN LAB BLOOD TYPE O POS KU MAIN LAB CODING STATUS 5100 KU MAIN LAB BLOOD [id number] KU MAIN LAB EXPIRATION DATE Transfusion OK TO TRANSFUSE KU MAIN LAB Status Specimen Other (Specify) Performing Organization Address [facility]/ZIP Code P dg Number MAIN LAB [address] [place] [address] * (ABNORMAL) TEG WITH KAOLIN (07/12/2021 9:15 PM ART CONSULTANT) MA Kaolin 44.2 (L) >49.9 MM REFERENCE LAB R Kaolin 3.2 <9.1 MIN REFERENCE LAB RK Kaolin 7.4 <12.1 MIN REFERENCE LAB K Kaolin 4.2 (H) <3.1 MIN REFERENCE LAB Angle Kaolin 48.0 (L) >54.9 DEG REFERENCE LAB Lysis30 0.0 <8.1 % REFERENCE LAB Specimen Blood (substance) Performing Organization Address [facility] P dg Number REFERENCE LAB REFERENCE LAB See results for address. * IONIZED CALCIUM (07/12/2021 9:15 PM ART CONSULTANT) Ionized Calcium 1.02 1.0 - 1.3 MMOL/L KU MAIN LAB Specimen Blood (substance) Performing Organization Address City/[facility]/ZIP Code P dg Number KU MAIN LAB [address] [place] [address] * (ABNORMAL) PHOSPHORUS (07/12/2021 9:15 PM ART CONSULTANT) Phosphorus 5.6 (H) 2.0 - 4.5 MG/DL MAIN LAB Specimen Blood (substance) Performing Organization Address [facility]/ZIP Code P dg Number KU MAIN LAB [address] [place] [address] * MAGNESIUM (07/12/2021 9:15 PM ART CONSULTANT) Magnesium 2.5 1.6 - 2.6 mg/dL KU MAIN LAB Specimen Blood (substance) Performing Organization Address [facility] P dg Number KU MAIN LAB [address] [place] [phone] * (ABNORMAL) COMPREHENSIVE METABOLIC PANEL (07/12/2021 9:15 PM ART CONSULTANT) Sodium 141 137 - 147 MMOL/L KU [...] equation Specimen Blood (substance) Performing Organization Address City/[facility] P dg Number KU MAIN LAB [address] [place] [address] * (ABNORMAL) CBC (07/12/2021 9:15 PM ART CONSULTANT) White Blood 21.4 (H) 4.5 - 11.0 K/UL KU MAIN LAB Cells RBC 3.01 (L) 4.4 - 5.5 M/UL KU MAIN LAB Hemoglobin 9.0 (L) 13.5 - 16.5 GM/DL KU MAIN LAB Hematocrit 27.5 (L) 40 - 50 % KU MAIN LAB MCV 91.4 80 - 100 FL KU MAIN LAB MCH 29.8 26 - 34 PG MAIN LAB MCHC 32.6 32.0 - 36.0 G/DL MAIN LAB RDW 14.2 11 - 15 % MAIN LAB Platelet Count 135 (L) 150 - 400 K/UL MAIN LAB MPV 9.2 7 - 11 FL MAIN LAB Specimen Blood (substance) Performing Organization Address [facility]/ZIP Code P dg Number MAIN LAB [address] [place] [address] * (ABNORMAL) POC GLUCOSE (07/12/2021 8:51 PM ART CONSULTANT) Glucose, POC 116 (H) 70 - 100 MG/DL MAIN LAB Specimen Performing Organization Address [facility]/ZIP Code P dg Number MAIN LAB [address] [place] [address] * (ABNORMAL) POC SODIUM (07/12/2021 8:50 PM ART CONSULTANT) Sodium-POC 136 (L) 137 - 147 MMOL/L MAIN LAB Specimen Performing Organization Address [facility] Code P dg Number MAIN LAB [address] [place] [address] * POC POTASSIUM (07/12/2021 8:50 PM ART CONSULTANT) Potassium-POC 5.0 3.5 - 5.1 MMOL/L MAIN LAB Specimen Performing Organization Address [facility] Code P dg Number MAIN LAB [address] [place] [address] * (ABNORMAL) POC HEMATOCRIT (07/12/2021 8:50 PM ART CONSULTANT) Hemoglobin POC 7.8 (L) 13.5 - 16.5 GM/DL MAIN LAB Hematocrit POC 23.0 (L) 40 - 50 % MAIN LAB Specimen Performing Organization Address [facility] Code P dg Number MAIN LAB [address] [place] [address] * (ABNORMAL) POC BLOOD GAS ARTERIAL (07/12/2021 8:50 PM ART CONSULTANT) PH-ART-POC 7.39 7.35 - 7.45 KU MAIN LAB SHR4-VUW-YKP 32 (L) 35 - 45 MMHG KU MAIN LAB PO2-ART-POC 103 (H) 80 - 100 MMHG KU MAIN LAB Base 6.0 MMOL/L KU MAIN LAB Def-ART-POC O2 Sat-ART-POC 98.0 95 - 99 % KU MAIN LAB Bicarbonate-ART 19.1 (L) 21 - 28 MMOL/L KU MAIN LAB -POC Specimen Performing Organization Address City/State/ZIP Code P dg Number KU MAIN LAB [address] [place] [address] * TYPE & CROSSMATCH (07/12/2021 11:45 AM ART CONSULTANT) Units Ordered 3 KU MAIN LAB Crossmatch 07/15/2021,2359 KU MAIN LAB Expires Record Check FOUND KU MAIN LAB ABO/RH(D) O NEG KU MAIN LAB Antibody Screen NEG KU MAIN LAB Electronic YES KU MAIN LAB Crossmatch Unit Number [id number] KU MAIN LAB Blood Component RBC,ADSOL,LEUKO REDUCED,2ND KU MAIN L AB Type CONT. Unit Division 00 KU MAIN LAB Status OF Unit TRANSFUSED KU MAIN LAB ISSUE DATE TIME KU MAIN LAB PRODUCT CODE [id number] KU MAIN LAB BLOOD TYPE O NEG KU MAIN LAB CODING STATUS 9500 KU MAIN LAB BLOOD [id number] KU MAIN LAB EXPIRATION DATE Transfusion OK TO TRANSFUSE KU MAIN LAB Status Crossmatch COMPATIBLE,ELECTRONIC KU MAIN LAB Result Unit Number [id number] KU MAIN LAB Blood Component RBC,ADSOL,LEUKO REDUCED,2ND KU MAIN L AB Type CONT. Unit Division 00 KU MAIN LAB Status OF Unit TRANSFUSED KU MAIN LAB ISSUE DATE TIME KU MAIN LAB PRODUCT CODE [id number] KU MAIN LAB BLOOD TYPE O NEG KU MAIN LAB CODING STATUS 9500 KU MAIN LAB BLOOD [id number] KU MAIN LAB EXPIRATION DATE Transfusion OK TO TRANSFUSE KU MAIN LAB Status Crossmatch COMPATIBLE,ELECTRONIC KU MAIN LAB Result Unit Number [id number] KU MAIN LAB Blood Component RBC,ADSOL,LEUKO REDUCED,2ND KU MAIN L AB Type CONT. Unit Division 00 KU MAIN LAB Status OF Unit TRANSFUSED KU MAIN LAB ISSUE DATE TIME KU MAIN LAB PRODUCT CODE [id number] KU MAIN LAB BLOOD TYPE O NEG KU MAIN LAB CODING STATUS 9500 KU MAIN LAB BLOOD [id number] KU MAIN LAB EXPIRATION DATE Transfusion OK TO TRANSFUSE KU MAIN LAB Status Crossmatch COMPATIBLE,ELECTRONIC KU MAIN LAB Result Specimen Performing Organization Address City/State/ZIP Code P dg Number KU MAIN LAB [address] [place] [address] * TELEMETRY STRIPS-SCAN (07/12/2021 12:00 AM ART CONSULTANT) Narrative 07/12/2021 12:00 AM ART CONSULTANT Ordered by an unspecified provider. * TELEMETRY STRIPS-SCAN (07/12/2021 12:00 AM ART CONSULTANT) Narrative 07/12/2021 12:00 AM ART CONSULTANT Ordered by an unspecified provider. * TELEMETRY STRIPS-SCAN (07/12/2021 12:00 AM ART CONSULTANT) Narrative 07/12/2021 12:00 AM ART CONSULTANT Ordered by an unspecified provider. * ECG-SCAN (07/12/2021 12:00 AM ART CONSULTANT) Narrative 07/12/2021 12:00 AM ART CONSULTANT Ordered by an unspecified provider. * ECG-SCAN (07/12/2021 12:00 AM ART CONSULTANT) Narrative 07/12/2021 12:00 AM ART CONSULTANT Ordered by an unspecified provider. 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 Malignant neoplasm of urinary bladder, unspecified site (HCC) * Advanced Care Planning/Resuscitation Status - Keanu Shepherd DO - 07/12/2021 10:40 PM ART CONSULTANT Advance Care Planning/Resuscitation Status Conversation Individuals present [...] patient/surrogate wishes: None Keanu Shepherd DO [id number] CONSULTANT documented in this encounter Admitting Diagnoses Diagnosis Colon obstruction (HCC) Unspecified intestinal obstruction documented in this encounter Administered Medications Action Date Dose Rate Site Medication Order MAR Action 07/20/2021 8:53 AM ART CONSULTANT 81 mg aspirin EC tablet 81 mg Given 81 mg, Oral, DAILY, First dose on Mon07/13/21 at 1845, Until Discontinued 81 mg Given 07/19/2021 8:07 AM ART CONSULTANT 81 mg Given 07/18/2021 8:25 AM ART CONSULTANT 81 mg Given 07/17/2021 9:12 AM ART CONSULTANT 81 mg Given 07/16/2021 8:00 AM ART CONSULTANT 81 mg Given 07/15/2021 8:19 AM ART CONSULTANT 81 mg Given 07/14/2021 8:49 AM ART CONSULTANT 81 mg Given 07/13/2021 6:12 PM ART CONSULTANT 07/20/2021 8:50 AM ART CONSULTANT 25 mg atenoloL (TENORMIN) tablet 25 mg Given 25 mg, Oral, EVERY MORNING, First dose on Mon07/13/21 at 0800, Until Discontinued, Hold for heart rate < 60 bpm or SBP <100 25 mg Given 07/19/2021 8:07 AM ART CONSULTANT 25 mg Given 07/18/2021 8:25 AM ART CONSULTANT 07/20/2021 8:50 AM ART CONSULTANT 40 mg atorvastatin (LIPITOR) tablet 40 mg Given 40 mg, Oral, DAILY, First dose on Mon07/13/21 at 2130, Until Discontinued 40 mg Given 07/19/2021 8:07 AM ART CONSULTANT 40 mg Given 07/18/2021 8:25 AM ART CONSULTANT 40 mg Given 07/17/2021 9:12 AM ART CONSULTANT 40 mg Given 07/16/2021 8:00 AM ART CONSULTANT 40 mg Given 07/15/2021 8:19 AM ART CONSULTANT 40 mg Given 07/14/2021 8:49 AM ART CONSULTANT 40 mg Given 07/13/2021 9:37 PM ART CONSULTANT 07/20/2021 8:52 AM ART CONSULTANT 1 drop brimonidine (ALPHAGAN) 0.2 % ophthalmic Given solution 1 drop 1 drop, Both Eyes, TWICE DAILY, First dose on Mon07/15/21 at 1100, Until Discontinued 1 drop Given 07/19/2021 9:28 PM ART CONSULTANT 1 drop Given 07/19/2021 8:08 AM ART CONSULTANT 1 drop Given 07/18/2021 8:43 PM ART CONSULTANT 1 drop Given 07/18/2021 8:31 AM ART CONSULTANT 1 drop Given 07/17/2021 9:18 PM ART CONSULTANT 1 drop Given 07/17/2021 9:13 AM ART CONSULTANT 1 drop Given 07/16/2021 8:22 PM ART CONSULTANT 1 drop Given 07/16/2021 8:00 AM ART CONSULTANT 1 drop Given 07/15/2021 9:10 PM ART CONSULTANT 1 drop Given 07/15/2021 11:10 AM ART CONSULTANT 07/20/2021 11:33 AM ART CONSULTANT 500 mg calcium carbonate (TUMS) chew tablet 500 Given mg 500 mg, Oral, EVERY 4 HOURS PRN, Starting on 07/17/21 at 2055, Until Tu07/20/21 at 1235, Indigestion/Heartburn, Each 500 mg tab delivers 200 mg elemental calcium 500 mg Given 07/19/2021 3:37 PM ART CONSULTANT 500 mg Given 07/18/2021 2:34 PM ART CONSULTANT 500 mg Given 07/18/2021 10:37 AM ART CONSULTANT 500 mg Given 07/18/2021 3:12 AM ART CONSULTANT 500 mg Given 07/17/2021 9:16 PM ART CONSULTANT 07/20/2021 8:53 AM ART CONSULTANT 1 drop dorzolamide (TRUSOPT) 2 % ophthalmic Given solution 1 drop 1 drop, Right Eye, TWICE DAILY, First dose on Kim 07/15/21 at 1115, Until Discontinued, Give with timolol to equa l Cosopt. 1 drop Given 07/19/2021 9:29 PM ART CONSULTANT 1 drop Given 07/19/2021 8:08 AM ART CONSULTANT 1 drop Given 07/18/2021 8:45 PM ART CONSULTANT 1 drop Given 07/18/2021 8:31 AM ART CONSULTANT 1 drop Given 07/17/2021 9:18 PM ART CONSULTANT 1 drop Given 07/17/2021 9:13 AM ART CONSULTANT 1 drop Given 07/16/2021 8:22 PM ART CONSULTANT 1 drop Given 07/16/2021 8:00 AM ART CONSULTANT 1 drop Given 07/15/2021 9:10 PM ART CONSULTANT 1 drop Given 07/15/2021 11:16 AM ART CONSULTANT 07/20/2021 8:49 AM ART CONSULTANT 20 mg famotidine (PEPCID) tablet 20 mg Given 20 mg, Oral, DAILY, First dose on 07/12/21 at 1645, Until Discontinued 20 mg Given 07/19/2021 8:07 AM ART CONSULTANT 20 mg Given 07/18/2021 8:25 AM ART CONSULTANT 20 mg Given 07/17/2021 9:12 AM ART CONSULTANT 20 mg Given 07/16/2021 8:00 AM ART CONSULTANT 20 mg Given 07/15/2021 8:19 AM ART CONSULTANT 20 mg Given 07/14/2021 8:50 AM ART CONSULTANT 20 mg Given 07/13/2021 8:32 AM ART CONSULTANT 07/20/2021 6:07 AM ART CONSULTANT 5,000 Units Abdomina l Tissue heparin (porcine) PF syringe 5,000 Units Given 5,000 Units, Subcutaneous, EVERY 8 HOURS, First dose on Mon07/13/21 at 1745, Until Discontinued, NOTE: This is a HIGH ALERT Medication. 5,000 Units Abdomen:LLQ Given 07/19/2021 9:32 PM ART CONSULTANT 5,000 Units Arm, Right Given 07/19/2021 2:08 PM ART CONSULTANT 5,000 Units Abdominal Tissue Given 07/19/2021 6:30 AM ART CONSULTANT 5,000 Units Arm, Right Given 07/18/2021 8:48 PM ART CONSULTANT 5,000 Units Arm, Right Given 07/18/2021 2:34 PM ART CONSULTANT 5,000 Units Arm, Right Given 07/18/2021 6:53 AM ART CONSULTANT 5,000 Units Arm, Right Given 07/17/2021 9:16 PM ART CONSULTANT 5,000 Units Abdominal Tissue Given 07/17/2021 1:14 PM ART CONSULTANT 5,000 Units Abdomen:RLQ Given 07/17/2021 6:34 AM ART CONSULTANT 5,000 Units Arm, Left Given 07/16/2021 9:28 PM ART CONSULTANT 5,000 Units Abdominal Tissue Given 07/16/2021 1:59 PM ART CONSULTANT 5,000 Units Abdomen:RLQ Given 07/16/2021 6:22 AM ART CONSULTANT 5,000 Units Abdomen:RLQ Given 07/15/2021 9:10 PM ART CONSULTANT 5,000 Units Abdominal Tissue Given 07/15/2021 1:49 PM ART CONSULTANT 5,000 Units Abdominal Tissue Given 07/15/2021 6:38 AM ART CONSULTANT 5,000 Units Abdominal Tissue Given 07/14/2021 9:00 PM ART CONSULTANT 5,000 Units Abdomen:RLQ Given 07/14/2021 2:07 PM ART CONSULTANT 5,000 Units Arm, Left Given 07/14/2021 5:47 AM ART CONSULTANT 5,000 Units Abdominal Tissue Given 07/13/2021 9:26 PM ART CONSULTANT 5,000 Units Abdominal Tissue Given 07/13/2021 6:12 PM ART CONSULTANT 07/20/2021 8:53 AM ART CONSULTANT 1 drop ketorolac (ACULAR) 0.5 % ophthalmic Given solution 1 drop 1 drop, Right Eye, FOUR TIMES DAILY, First dose on Mon07/15/21 at 1300, Unti l Discontinued 1 drop Given 07/19/2021 9:00 PM ART CONSULTANT 1 drop Given 07/19/2021 4:52 PM ART CONSULTANT 1 drop Given 07/19/2021 12:38 PM ART CONSULTANT 1 drop Given 07/19/2021 8:40 AM ART CONSULTANT 1 drop Given 07/18/2021 8:42 PM ART CONSULTANT 1 drop Given 07/18/2021 5:00 PM ART CONSULTANT 1 drop Given 07/18/2021 2:34 PM ART CONSULTANT 1 drop Given 07/18/2021 8:41 AM ART CONSULTANT 1 drop Given 07/17/2021 9:17 PM ART CONSULTANT 1 drop Given 07/17/2021 6:00 PM ART CONSULTANT 1 drop Given 07/17/2021 1:13 PM ART CONSULTANT 1 drop Given 07/17/2021 9:15 AM ART CONSULTANT 1 drop Given 07/16/2021 8:23 PM ART CONSULTANT 1 drop Given 07/16/2021 4:48 PM ART CONSULTANT 1 drop Given 07/16/2021 12:25 PM ART CONSULTANT 1 drop Given 07/16/2021 8:00 AM ART CONSULTANT 1 drop Given 07/15/2021 9:10 PM ART CONSULTANT 1 drop Given 07/15/2021 4:02 PM ART CONSULTANT 1 drop Given 07/15/2021 1:49 PM ART CONSULTANT 07/19/2021 9:30 PM ART CONSULTANT 1 drop latanoprost (XALATAN) 0.005 % ophthalmic Given solution 1 drop 1 drop, Right Eye, AT BEDTIME DAILY, First dose on Mon07/15/21 at 2100, Unti l Discontinued, AFTER BREAKING TAMPER EVIDENT SEAL [CLEAR LID], THROW AWAY TH E CLEAR LID LEAVING THE COLORED LID. DO NOT PUT THE CLEAR LID BACK OVER THE COLORED LID. 1 drop Given 07/18/2021 8:44 PM ART CONSULTANT 1 drop Given 07/17/2021 9:20 PM ART CONSULTANT 1 drop Given 07/16/2021 8:23 PM ART CONSULTANT 1 drop Given 07/15/2021 9:10 PM ART CONSULTANT 07/20/2021 8:56 AM ART CONSULTANT 200 mg megestroL (MEGACE) oral suspension 200 Given mg 200 mg, Oral, DAILY, First dose on 07/19/21 at 0915, Until Discontinued, NOTE: This is a HIGH ALERT Medication. 200 mg Given 07/19/2021 10:08 AM ART CONSULTANT 07/19/2021 9:28 PM ART CONSULTANT 1 drop netarsudiL (RHOPRESSA) 0.02 % soln Given ++patient own supply++ 1 drop, Right Eye, AT BEDTIME DAILY, First dose on Mon07/16/21 at 2100, Unti l Discontinued, ++patient own supply++ 1 drop Given 07/18/2021 8:45 PM ART CONSULTANT 1 drop Given 07/17/2021 9:17 PM ART CONSULTANT 1 drop Given 07/16/2021 8:22 PM ART CONSULTANT 07/19/2021 9:32 PM ART CONSULTANT 8 mg ondansetron (ZOFRAN) injection 8 mg Given 8 mg, Intravenous, EVERY 6 HOURS PRN, Starting on Mon07/14/21 at 1111, Until Mon07/20/21 at 1235, Nausea/Vomiting Injectable 8 mg Given 07/19/2021 8:17 AM ART CONSULTANT 8 mg Given 07/18/2021 7:29 PM ART CONSULTANT 8 mg Given 07/17/2021 10:58 AM ART CONSULTANT 07/20/2021 8:52 AM ART CONSULTANT 1 drop timoloL maleate (TIMOPTIC) 0.5 % Given ophthalmic drops 1 drop 1 drop, Right Eye, TWICE DAILY, First dose on Kim 07/15/21 at 1115, Until Discontinued, Give with dorzolamide to equal Cosopt 1 drop Given 07/19/2021 9:30 PM ART CONSULTANT 1 drop Given 07/19/2021 8:08 AM ART CONSULTANT 1 drop Given 07/18/2021 8:44 PM ART CONSULTANT 1 drop Given 07/18/2021 8:31 AM ART CONSULTANT 1 drop Given 07/17/2021 9:18 PM ART CONSULTANT 1 drop Given 07/17/2021 9:13 AM ART CONSULTANT 1 drop Given 07/16/2021 8:23 PM ART CONSULTANT 1 drop Given 07/16/2021 8:00 AM ART CONSULTANT 1 drop Given 07/15/2021 9:10 PM ART CONSULTANT 1 drop Given 07/15/2021 11:21 AM ART CONSULTANT documented in this encounter Discontinued Medications Start Date End Date Medication Sig Discontinue Reason 06/22/2021 07/13/2021 colestipoL (COLESTID) 1 Removed from gram tablet [employer]IN [employer]TER Med List 07/13/2021 hydrocortisone acetate Insert or Removed from (ANUSOL-HC) 25 mg rectal Apply 25 mg CABIN OUTFITTER Med List suppository to rectal area as directed every 12 hours. 04/30/2021 07/13/2021 ondansetron (ZOFRAN ODT) Dissolve one Removed from 4 mg rapid dissolve tablet by CABIN OUTFITTER Med List tablet mouth every 6 hours as needed for Nausea or Vomiting. Place on tongue to dissolve. 04/30/2021 07/13/2021 oxyCODONE (ROXICODONE) 5 Take one Removed from mg tablet tablet by CABIN OUTFITTER Med List mouth every 6 hours as [...] Recently Administered Medications Times are shown in ART CONSULTANT. 07/19/2021 07/20/2021 Medication Order 07/18/2021 0807 (Given - Provider: Zack Eugene RN ) 0853 (Given - Provider: Dena Cotton, RN ) aspirin EC tablet 81 mg 0825 (Given - 81 mg, Oral, DAILY, First dose on Mon Provider: Avelina knight 07/13/21 at 1845, Until Discontinued ERNST Aguirre) 0807 (Given - Provider: Zack Eugene RN ) 0850 (Given - Provider: Dena Cotton, RN ) atenoloL (TENORMIN) tablet 25 mg 0711 (Unheld by 25 mg, Oral, EVERY MORNING, First dose Provider - Pr ovider: on Mon07/13/21 at 0800, Until Mar Dekonenko, Discontinued, Hold for heart rate < 60 [...] Eugene RN )2127 (Given - Provider: Ana Rosenberg, RN) 0852 (Given - Provider: Dena Cotton, RN ) brimonidine (ALPHAGAN) 0.2 % ophthalmic 0831 (Given - solution 1 drop Provider: Humberto 1 drop, Both Eyes, TWICE DAILY, First ERNST Aguirre)2042 (Given dose on Mon07/15/21 at 1100, Until - Provider: Randa e Discontinued Early, RN) 08 (Given - Provider: Zack Eugene RN )2128 (Given - Provider: Ana Rosenberg RN) 0853 (Given - Provider: Dena Cotton, ERNST ) dorzolamide (TRUSOPT) 2 % ophthalmic 0831 (Given - solution 1 drop(Linked Group 1) Provider: Humberto 1 drop, Right Eye, TWICE DAILY, First ERNST Aguirre)2044 (Given dose on Mon07/15/21 at 1115, Until - Provider: Randa rodgers Discontinued, Give with timolol to equal Early, RN) Cosopt. 0807 (Given - Provider: Zack Eugene RN ) 0849 (Given - Provider: Dena Cotton, ERNST ) famotidine (PEPCID) tablet 20 mg 0825 (Given - 20 mg, Oral, DAILY, First dose on Mon Provider: Avelina knight 07/12/21 at 1645, Until Discontinued ERNST Aguirre) 0630 (Given - Provider: Matt Cox , ERNST)1408 (Given - Provider: Victoria Gutierrez, ERNST)2131 (Given - Provider: Ana Rosenberg, ERNST) 06 (Given - Provider: Saadia Mirza, ERNST) heparin (porcine) PF syringe 5,000 Units 0653 (Given - 5,000 Units, Subcutaneous, EVERY 8 Provider: Simon St HOURS, First dose on Mon07/13/21 at ERNST [place])1434 (G iven 1745, Until Discontinued, NOTE: This is - Provider: Humberto a HIGH ALERT Medication. ERNST Aguirre)2047 (Given - Provider: Sierra Morales RN)214 (Planned [...] ERNST ) latanoprost (XALATAN) 0.005 % ophthalmic 2043 (Given - solution 1 drop Provider: Sierra [...] 0808 (Given - Provider: Zack Eugene, RN )213 (Given - Provider: Ana Rosenberg, RN) 0852 (Given - Provider: Dena Cotton RN ) timoloL maleate (TIMOPTIC) 0.5 % 0831 (Given - ophthalmic drops 1 drop(Linked Group 1) Provider: Br wiliam 1 drop, Right Eye, TWICE DAILY, First Carla RN)2043 (Given dose on Mon07/15/21 at 1115, Until - Provider: Randa e Discontinued, Give with dorzolamide to Andrew, ERNST) equal Cosopt 07/19/2021 07/20/2021 Medication Order 07/18/2021 1537 (Given - Provider: Aly Link RN) 1133 (Given - Provider: Dena Cotton RN ) calcium carbonate (TUMS) chew tablet 500 0312 (Given - mg Provider: Simon St 500 mg, Oral, EVERY 4 HOURS PRN, ERNST [place])1037 (Giv en Starting on Mon07/17/21 at 2055, Until - Provider: Sarmad matthews Mon07/20/21 at 1235, ERNST Aguirre)1434 (Given Indigestion/Heartburn, Each 500 mg tab - Provider: Sarmad matthews delivers 200 mg elemental calcium Carla, RN) 1235 (Unheld by Provider - Provider: Jose, Orders Discontinue) cetirizine (ZyrTEC) tablet 5 mg 5 mg, Oral, DAILY PRN, Starting on Mon07/12/21 at 1638, Until Mon07/20/21 at 1235, Allergy symptoms 0817 (Given - Provider: Zack Eugene, ERNST )2131 (Given - Provider: Ana Rosenberg, ERNST) ondansetron (ZOFRAN) injection 8 mg 1929 (Given [...] Date [facility] REQUEST[facility]) First Ordered Date Intake & Output Count [...] Concerns Noted Time Assessment 07/20/2021 8:48 AM ART CONSULTANT A fall risk assessment has been complet ed for the patient documented as of this encounter Care Teams Start Date End Date High School Assistant Principal Relationship Specialty 05/17/20 Angelo Gordon MD PCP - General Internal [address] [facility] [address] [place] [id number] 05/17/20 Bartolo Cornejo MD Internal [address] [facility] [address] [place] [phone] documented as of this encounter
--- OUTSIDE RECORDS SUMMARY | 2021-07-28 19:51 | XMS REPORT | Encounter Summary ---
Author Author [facility] Organization [facility] Address Unknown Phone Unavailable Care Team Providers Care Rail Grinder Name Role Phone Angelo Gordon MD PCP Bartolo Cornejo MD Unavailable Encounter Details Care Team Description Date Type Department 07/12/2021 Hospital Imaging: Main Camp[facility], Encounter [facility] [address] [facility] [place] [address] Social History Date Tobacco Use Types Packs/Day Years Used Never Smoker Smokeless Tobacco: Never Used Comments Alcohol Use Standard Drinks/Week Not Currently 0 (1 standard drink = 0.6 o z pure alcohol) Sex Assigned at Date Recorded Male 05/18/2020 12:22 PM PURCHASE ORDER CHECKER Date Recorded COVID-19 Exposure Response 07/12/2021 11:38 AM PURCHASE ORDER CHECKER In the last month, have you been [...] 06/08/2020 Miscellaneous Medical Urostomy 20 each Supply [facility] supplies and accessories Dispense [...] 8 hours as needed for Pain. Vit A,C,G-Kwbd-Xxfgpb Take 2 0 (PRESERVISION AREDS) capsules by 14,[id number] mouth daily. [id number] cap 07/20/2021 07/20/2021 acetaminophen (TYLENOL) Take three [...] Priority Associated Diag noses 07/12/2021 2:03 PM PURCHASE ORDER CHECKER POC ANES US GUIDED NERVE Imaging Routine [...] track (07/12/2021 Yes April Marie, 6:07 PM PURCHASE ORDER CHECKER) RN Note: "To heal and recover, and get stronger, be as healthy as I can" documented as of this encounter Visit Diagnoses Not on filedocumented in this encounter Additional Health Concerns Noted Time Assessment 07/12/2021 10:42 PM PURCHASE ORDER CHECKER A fall risk assessment has been complet ed for the patient documented as of this encounter Care Teams Start Date End Date Rail Grinder Relationship Specialty 05/17/20 Angelo Gordon MD PCP - General Internal [address] [facility] [address] [place] [id number] 05/17/20 Bartolo Cornejo MD Internal [address] [facility] [address] [place] [id number] documented as of this encounter
--- OUTSIDE RECORDS SUMMARY | 2021-07-28 19:51 | XMS REPORT | Encounter Summary ---
Author Author [facility] Organization [facility] Address Unknown Phone Unavailable Care Team Providers Care Director Of Food And Beverage Services Name Role Phone Angelo Gordon MD PCP Bartolo Cornejo MD Unavailable Reason for Visit * Reason Comments Heme/Onc Care * Auth/Cert Diagnoses / Procedures Referred By Contact Referred To Conta ct Specialty Diagnoses Malignant neoplasm of urinary bladder, unspecified site (HCC) Malignant neoplasm of urinary bladder, unspecified site (HCC) [C67.9] Procedures [place] COLOSTOMY/SKIN LEVEL CECOSTOMY COLOSTOMY/ SKIN LEVEL CECOSTOMY Referral ID Status Reason Start Date Expiration Visits Vi sits Date Requested Authorized [id number] 1 1 Encounter Details Care Team Description Date Type Department Cody Louie MD [address] [place] [address] 07/09/2021 Hospital Laboratory: [facility] [address] [place] [address]. [address], [address] [place] [address] Social History Date Tobacco Use Types Packs/Day Years Used Never Smoker Smokeless Tobacco: Never Used Comments Alcohol Use Standard Drinks/Week Not Currently 0 (1 standard drink = 0.6 o z pure alcohol) Sex Assigned at Date Recorded Male 05/18/2020 12:22 PM TRAVELING CLERK Date Recorded COVID-19 Exposure Response 07/09/2021 9:00 AM TRAVELING CLERK In the last month, have you [...] 06/08/2020 Miscellaneous Medical Urostomy 20 each Supply [facility] supplies and accessories Dispense one month of [...] 8 hours as needed for Pain. Vit A,C,D-Dahs-Hcgzig Take 2 0 (PRESERVISION AREDS) capsules by 14,[phone] mouth daily. [id number] cap 07/20/2021 07/20/2021 acetaminophen (TYLENOL) Take three [...] 07/09/2021 Malig nant neoplasm of 9:19 AM TRAVELING CLERK overlapping sites of bladder (HCC) HC COMPREHENSIVE Routine 07/09/2021 Malignant barney plasm of METABOLIC PANEL 9:19 AM TRAVELING CLERK overlapping sites o f bladder (HCC) documented in this encounter Results * (ABNORMAL) COMPREHENSIVE METABOLIC PANEL (07/09/2021 9:19 AM TRAVELING CLERK) Sodium 137 137 - 147 MMOL/L [facility] [...] eGFR >60Comment: eGFR calculated >60 mL/min [facility] using the CKD-EPIcr_R equation Specimen Blood (substance) Performing Organization Address [facility] P dg Number [facility] [address] [place] [address] * (ABNORMAL) CBC AND DIFF (07/09/2021 9:19 AM TRAVELING CLERK) White Blood 9.6 4.5 - 11.0 K/UL [...] Count Specimen Blood (substance) Performing Organization Address City/[facility]/ZIP Code P dg Number [facility] [address] [place] [address] documented in this encounter Visit Diagnoses Diagnosis Malignant neoplasm of overlapping sites of bladder (HCC) - Primary Malignant neoplasm of other specified s ites of bladder documented in this encounter Additional Health Concerns Noted Time Assessment 07/09/2021 9:37 AM TRAVELING CLERK A fall risk assessment has been complet ed for the patient documented as of this encounter Care Teams Start Date End Date Director Of Food And Beverage Services Relationship Specialty 05/17/20 Angelo Gordon MD PCP - General [facility] [address] [facility] [address] [place] [id number] 05/17/20 Bartolo Cornejo MD Internal [address] [facility] [address] [place] [id number] documented as of this encounter
--- OUTSIDE RECORDS SUMMARY | 2021-07-28 19:51 | XMS REPORT | Encounter Summary ---
Author Author [facility] Organization [facility] Address Unknown Phone Unavailable Care Team Providers Care Program Director Scouting Name Role Phone Angelo Gordon MD PCP Bartolo Cornejo MD Unavailable Reason for Visit * Auth/Cert Diagnoses / Procedures Referred By Contact Referred To Conta ct Specialty Diagnoses Malignant neoplasm of urinary bladder, unspecified site (HCC) Malignant neoplasm of urinary bladder, unspecified site (HCC) [C67.9] Procedures AL COLOSTOMY/SKIN LEVEL CECOSTOMY COLOSTOMY/ SKIN LEVEL CECOSTOMY Referral ID Status Reason Start Date Expiration Visits Vi sits Date Requested Authorized [id number] 1 1 Encounter Details Care Team Description Date Type Department Dallas Gaxiola MD [address] [address] Venkata Lindsey MD [address] [address] 07/12/2021 Anesthesia Operating Room: Cam bridge Event [place] [facility] [address] [place] [address] Anesthesia Record Responsible Anesthesiologist Anesthesia [...] Right Quadrant 1 08/05/19 0550 by Sarah aCmpos RN NEPHROSTOM 04/28/21; 1245; Flank, Left Lower 04/19 1245 by Arabella Y TUBE Lateral; 8 FR ERNST [place] Colostomy 07/12/21; 1354; Upper Left Quadrant 1354 by Radha Patino, ERNST 07/20/21 1223 by Jose Hedis Registered Nurse Rn Wounds Medial; Abdomen; 07/20/21; 1223 1303 by [...] at Date Recorded Male 05/18/2020 12:22 PM STENCIL SPRAYER Date Recorded COVID-19 Exposure Response 07/12/2021 11:38 AM STENCIL SPRAYER In the last month, have you been [...] Dallas Gaxiola MD - 07/12/2021 4:36 PM STENCIL SPRAYER Post-Anesthesia Evaluation Name: Chemo Jenkins : 1950 Age: 71 y.o . Sex: male Procedure Information Anesthesia Start Date/Time: 07/12/21 1231 Procedure: EXPLORATORY LAPAROTOMY, DIVERTING LOOP COLOSTOMY (N/A Abdomen) - 1 h r, REQUEST 1300 START Location: [place] [id number] / [facility] OR/Periop Surgeons: Maurice Cao DO Post-Anesthesia [...] Perioperative Event: No Emergency Case Activation: No CIL SPRAYER * Anesthesia Preprocedure Evaluation - Emi Srivastava CRNA - 07/12/2021 11:31 AM STENCIL SPRAYER Anesthesia Pre-Procedure Evaluation Name: Chemo Jenkins : 1950 Age: 71 y.o . Sex: male Procedure Info: Procedure Information Date/Time: 07/12/21 1300 Procedure: COLOSTOMY/ SKIN LEVEL CECOSTOMY (N/A ) - 1 hr, REQUEST 1300 START Location: [facility] OR08 / [facility] OR/Periop Surgeons: Maurice [...] 06/04/2020 Performed by Keith Trinidad MD at [facility] OR PERCUTANEOUS NEPHROSTOLITHOTOMY/ PYELOSTOLITHOTOMY - 2 CM OR LESS Right 11/12 Performed by Tristan Bowman MD at [facility] OR URETEROSCOPY WITH URETERAL STENT EXCHANGE Right 02/15/2021 Performed by Tristan Bowman MD at [facility] OR PERCUTANEOUS NEPHROSTOLITHOTOMY/ PYELOSTOLITHOTOMY - GREATER THAN 2 CM Left 04/29/2021 Performed by Kvng Rm MD at [facility] OR PERCUTANEOUS PLACEMENT NEPHROSTOMY CATHETER WITH NEPHROSTOGRAM/ URETEROGRAM/ IMAGE-GUIDANCE Left 04/29/2021 Performed by Kvng Rm MD at [facility] OR CYSTOURETHROSCOPY WITH URETEROSCOPY AND/ OR PYELOSCOPY - WITH REMOVAL/ MANIP ULATION CALCULUS Left 04/29/2021 Performed by Kvng Rm MD at [facility] OR Allergies Allergen Reactions Tegaderm [...] DROP INTO RIGHT EYE AT BEDTIME [facility] [place] Urostomy supplies and accessories [...] by mouth daily as ne eded. Vit A,C,K-Ctgx-Wfhoul (PRESERVISION AREDS) 14,320-226-200 kagn-gz-iacr cap Take 2 capsules by mouth daily. [...] a.m . Hypertension, well controlled No past ID, No hx of coronary artery disease No PTCA (November with PVC) Palpitations Dysrhythmias (PAF; treated with meds; no termite treater helper anticoagulant; none since 2013) No angina No [...] with patient Plan discussed with: anesthesiologist and BI DEVELOPER. CIL SPRAYER documented in this encounter Plan of Treatment [...] track (07/12/2021 Yes April Marie, 6:07 PM STENCIL SPRAYER) RN Note: "To heal and recover, and get stronger, be as healthy as I can" documented as of this encounter Visit Diagnoses Not on filedocumented in this encounter Administered Medications Action Date Dose Rate Site Medication Order MAR Action 07/12/2021 12:40 PM STENCIL SPRAYER 2 drops artificial tears single dose ophthalmic Given solution Both Eyes, INTRA-PROCEDURE MED, Startin g on Mon07/12/21 at 1240, Until Mon07/12/21 at 1424, Anesthesia Intra-op 07/12/2021 12:31 PM STENCIL SPRAYER 2 g ceFAZolin (ANCEF) injection Given Intravenous, INTRA-PROCEDURE MED, Starting on Mon07/12/21 at 1231, Until Mon07/12/21 at 1424, Anesthesia Intra-o p 07/12/2021 12:56 PM STENCIL SPRAYER 4 mg dexamethasone (DECADRON) injection Given Intravenous, INTRA-PROCEDURE MED, Starting on Mon07/12/21 at 1256, Until Mon07/12/21 at 1424, Anesthesia Intra-o p 07/12/2021 12:06 PM STENCIL SPRAYER 20 mg famotidine (PEPCID) injection Given Intravenous, INTRA-PROCEDURE MED, Starting on Mon07/12/21 at 1206, Until Mon07/12/21 at 1424, Anesthesia Intra-o p 07/12/2021 1:46 PM STENCIL SPRAYER 50 mcg fentaNYL citrate PF (SUBLIMAZE) Given injection Intravenous, INTRA-PROCEDURE MED, Starting on Mon07/12/21 at 1238, Until Mon07/12/21 at 1424, Anesthesia Intra-o p 50 mcg Given 07/12/2021 1:19 PM STENCIL SPRAYER 100 mcg Given 07/12/2021 12:56 PM STENCIL SPRAYER 100 mcg Given 07/12/2021 12:38 PM STENCIL SPRAYER 07/12/2021 12:38 PM STENCIL SPRAYER 80 mg lidocaine (PF) injection Given Intravenous, INTRA-PROCEDURE MED, Starting on Mon07/12/21 at 1238, Until Mon07/12/21 at 1424, Anesthesia Intra-o p 07/12/2021 12:56 PM STENCIL SPRAYER 4 mg ondansetron (ZOFRAN) injection Given Intravenous, INTRA-PROCEDURE MED, Starting on Mon07/12/21 at 1256, Until Mon07/12/21 at 1424, Anesthesia Intra-o p 07/12/2021 1:58 PM STENCIL SPRAYER 100 mcg phenylephrine (KATLYN-SYNEPHRINE) injection Given syringe Intravenous, INTRA-PROCEDURE MED, Starting on Mon07/12/21 at 1340, Until Mon07/12/21 at 1424, Anesthesia Intra-o p 100 mcg Given 07/12/2021 1:40 PM STENCIL SPRAYER 07/12/2021 12:57 PM STENCIL SPRAYER 20 mg propofol (DIPRIVAN) injection Given Intravenous, INTRA-PROCEDURE MED, Starting on Mon07/12/21 at 1238, Until Mon07/12/21 at 1424, Anesthesia Intra-o p 100 mg Given 07/12/2021 12:38 PM STENCIL SPRAYER 07/12/2021 1:33 PM STENCIL SPRAYER 10 mg rocuronium injection Given Intravenous, INTRA-PROCEDURE MED, Starting on Mon07/12/21 at 1238, Until Mon07/12/21 at 1424, Anesthesia Intra-o p 5 mg Given 07/12/2021 1:05 PM STENCIL SPRAYER 5 mg Given 07/12/2021 12:56 PM STENCIL SPRAYER 30 mg Given 07/12/2021 12:38 PM STENCIL SPRAYER 07/12/2021 1:05 PM STENCIL SPRAYER sodium chloride 0.9 % infusion Given - New 250 mL, 250 mL, Intravenous, at 10 Bag mL/hr, CONTINUOUS, Starting on Mon07/12/21 at 1130, Until Mon07/12/21 at 2318, Hang bag in Preop 250 mL 10 mL/hr Given - New Bag 07/12/2021 12:02 PM STENCIL SPRAYER 07/12/2021 2:00 PM STENCIL SPRAYER 140 mg sugammadex (BRIDION) injection Given Intravenous, INTRA-PROCEDURE MED, Starting on Mon07/12/21 at 1400, Until Mon07/12/21 at 1424, Anesthesia Intra-o p documented in this encounter Additional Health Concerns Noted Time Assessment 07/12/2021 10:42 PM STENCIL SPRAYER A fall risk assessment has been complet ed for the patient documented as of this encounter Care Teams Start Date End Date Program Director Scouting Relationship Specialty 05/17/20 Angelo Gordon MD PCP - General Internal [address] [facility] [address] [place] [id number] 05/17/20 Bartolo Cornejo MD Internal [address] [facility] [address] [place] [address] documented as of this encounter
--- OUTSIDE RECORDS SUMMARY | 2021-07-28 19:51 | XMS REPORT | Encounter Summary ---
Author Author [facility] Organization [facility] Address Unknown Phone Unavailable Care Team Providers Care Supervisor Propellant Charge Loading Name Role Phone Angelo Gordon MD PCP Bartolo Cornejo MD Unavailable Encounter Details Care Team Description Date Type Department 07/12/2021 Hospital Imaging: Main Campu s, Encounter [facility] [address] [facility]. [address] [place] [address] Social History Date Tobacco Use Types Packs/Day Years Used Never Smoker Smokeless Tobacco: Never Used Comments Alcohol Use Standard Drinks/Week Not Currently 0 (1 standard drink = 0.6 o z pure alcohol) Sex Assigned at Date Recorded Male 05/18/2020 12:22 PM DRAW STRING KNOTTER Date Recorded COVID-19 Exposure Response 07/12/2021 11:38 AM DRAW STRING KNOTTER In the last month, have you been [...] 06/08/2020 Miscellaneous Medical Urostomy 20 each Supply [facility] supplies and accessories Dispense one month of [...] 8 hours as needed for Pain. Vit A,C,N-Qrya-Igiuod Take 2 0 (PRESERVISION AREDS) capsules by 14,320-226-200 mouth daily. ztwi-ek-koqb cap 07/20/2021 07/20/2021 acetaminophen (TYLENOL) Take three [...] Priority Associated Diag noses 07/12/2021 2:05 PM DRAW STRING KNOTTER POC ANES US GUIDED NERVE Imaging Routine [...] track (07/12/2021 Yes April Marie, 6:07 PM DRAW STRING KNOTTER) RN Note: "To heal and recover, and get stronger, be as healthy as I can" documented as of this encounter Visit Diagnoses Not on filedocumented in this encounter Additional Health Concerns Noted Time Assessment 07/12/2021 10:42 PM DRAW STRING KNOTTER A fall risk assessment has been complet ed for the patient documented as of this encounter Care Teams Start Date End Date Supervisor Propellant Charge Loading Relationship Specialty 05/17/20 Angelo Gordon MD PCP - General Internal [address] [facility] [address] [place] [id number] 05/17/20 Bartolo Cornejo MD Internal [address] [facility] [address] [place] [phone] documented as of this encounter
--- OUTSIDE RECORDS SUMMARY | 2021-07-28 19:51 | XMS REPORT | Encounter Summary ---
Author Author [facility] Organization [facility] Address Unknown Phone Unavailable Care Team Providers Care Undercollar Baster Name Role Phone Angelo Gordon MD PCP Bartolo Cornejo MD Unavailable Reason for Visit * Reason Comments Treatment IVF * Auth/Cert Diagnoses / Procedures Referred By Contact Referred To Conta ct Specialty Diagnoses Malignant neoplasm of urinary bladder, unspecified site (HCC) Malignant neoplasm of urinary bladder, unspecified site (HCC) [C67.9] Procedures [place] COLOSTOMY/SKIN LEVEL CECOSTOMY COLOSTOMY/ SKIN LEVEL CECOSTOMY Referral ID Status Reason Start Date Expiration Visits Vi sits Date Requested Authorized [id number] 1 1 Encounter Details Care Team Description Date Type Department Cody Louie MD [address] [place] [address] 07/09/2021 Hospital Oncology: Cancer [facility] [address] [facility]. [address], [address] [place] [address] Social History Date Tobacco Use Types Packs/Day Years Used Never Smoker Smokeless Tobacco: Never Used Comments Alcohol Use Standard Drinks/Week Not Currently 0 (1 standard drink = 0.6 o z pure alcohol) Sex Assigned at Date Recorded Male 05/18/2020 12:22 PM DYE TANK TENDER Date Recorded COVID-19 Exposure Response 07/12/2021 11:38 AM DYE TANK TENDER In the last month, have you been [...] 06/08/2020 Miscellaneous Medical Urostomy 20 each Supply [facility] supplies and accessories Dispense one month of [...] 8 hours as needed for Pain. Vit A,C,X-Esdk-Hxsxba Take 2 0 (PRESERVISION AREDS) capsules by 14,320-226-200 mouth daily. [id number]-na-rfmb cap 07/20/2021 07/20/2021 acetaminophen (TYLENOL) Take three [...] this encounter Progress Notes * Sharonda Lincoln, RN - 07/09/2021 2:47 PM DYE TANK TENDER Pt had follow up appointment with Dr. Tripathi prior to treatment. Pt has no yulissa rns at this time. PIV flushed and positive blood return noted. Pt received IVF a s ordered without incident. PIV removed and pt discharged from treatment ambulat ory. 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) - Primary Malignant neoplasm of lateral wall of u rinary bladder * Addendum Note - Johanna Almanzar - 07/09/2021 12:15 PM DYE TANK TENDER Encounter addended by: Johanna Almanzar on: 07/13/2021 11:36 AM Actions taken: Charge Capture section accepted TANK TENDER documented in this encounter Administered Medications Action Date Dose Rate Site Medication Order MAR Action 07/09/2021 12:42 PM DYE TANK TENDER 1,000 mL 500 mL/hr sodium chloride 0.9 % infusion Given - New 1,000 mL, 1,000 mL, Intravenous, at 500 Bag mL/hr, ONCE, 1 dose, On Mon07/09/21 at 1245 documented in this encounter Orders First Ordered Date Medications Ordered That Might Not Have Count Last Ordered Date Been Administered sodium chloride 0.9 % infusion 1 07/09 First Ordered Date Nursing Count Last Or[facility] 0 07/09/2021 PROTOCOLS documented in this encounter Additional Health Concerns Noted Time Assessment 07/09/2021 9:37 AM DYE TANK TENDER A fall risk assessment has been complet ed for the patient documented as of this encounter Care Teams Start Date End Date Undercollar Baster Relationship Specialty 05/17/20 Angelo Gordon MD PCP - General Internal [address] [facility] [address] [place] [id number] 05/17/20 Bartolo Cornejo MD Internal [address] [facility] Medicine [address] [place] [id number] documented as of this encounter
--- OUTSIDE RECORDS SUMMARY | 2021-07-28 19:51 | XMS REPORT | Encounter Summary ---
Author Author [facility] Organization [facility] Address Unknown Phone Unavailable Care Team Providers Care Landscape Architecture Teacher Name Role Phone Angelo Gordon MD PCP Bartolo Cornejo MD Unavailable Encounter Details Care Team Description Date Type Department Maurice Cao DO [address] [place], [place] Malignant neoplasm of urinary bladder, u nspecified site (HCC) (Primary Dx); COVID-19 vaccine series completed 07/09/2021 Prep for Case Oncology: [facility] [address] [place] [address]. [place], [place] [phone] Social History Date Tobacco Use Types Packs/Day Years Used Never Smoker Smokeless Tobacco: Never Used Comments Alcohol Use Standard Drinks/Week Not Currently 0 (1 standard drink = 0.6 o z pure alcohol) Sex Assigned at Date Recorded Male 05/18/2020 12:22 PM SACK CLEANER Date Recorded COVID-19 Exposure Response 07/12/2021 11:38 AM SACK CLEANER In the last month, have you [...] track (07/12/2021 Yes April Marie, 6:07 PM SACK CLEANER) RN Note: "To heal and recover, and [...] Concerns Noted Time Assessment 07/09/2021 9:37 AM SACK CLEANER A fall risk assessment has been complet ed for the patient documented as of this encounter Care Teams Start Date End Date Landscape Architecture Teacher Relationship Specialty 05/17/20 Angelo Gordon MD PCP - General Internal [address] [facility] [address] [place] [id number] 05/17/20 Bartolo Cornejo MD Internal [address] [facility] [address] [place] [address] documented as of this encounter
--- OUTSIDE RECORDS SUMMARY | 2021-07-28 19:51 | XMS REPORT | Encounter Summary ---
Author Author [facility] Organization [facility] Address Unknown Phone Unavailable Care Team Providers Care Healthcare Analyst Name Role Phone Angelo Gordon MD PCP Bartolo Cornejo MD Unavailable Reason for Visit * Reason Comments Kidney Stone Encounter Details Care Team Description Date Type Department Kvng Rm MD [address] Ortho/Med Pavilion [address] [place] [address] Nephrolithiasis 06/30/2021 Office Visit Urology: [facility] [address], [place] [address] Social History Date Tobacco Use Types Packs/Day Years Used Never Smoker Smokeless Tobacco: Never Used Comments Alcohol Use Standard Drinks/Week Not Currently 0 (1 standard drink = 0.6 o z pure alcohol) Sex Assigned at Date Recorded Male 05/18/2020 12:22 PM SIGN LANGUAGE INSTRUCTOR Date Recorded COVID-19 Exposure Response 07/12/2021 11:38 AM SIGN LANGUAGE INSTRUCTOR In the last month, have you been [...] 63.5 kg (140 lb) 06/30/2021 3:23 PM SIGN LANGUAGE INSTRUCTOR Weight 172.7 cm (5' 8") 06/30/2021 3:23 PM SIGN LANGUAGE INSTRUCTOR Height 21.29 06/30/2021 3:23 PM SIGN LANGUAGE INSTRUCTOR Body Mass Index documented in this encounter [...] Kvng Rm MD - 06/30/2021 4:00 PM SIGN LANGUAGE INSTRUCTOR Date of Service: 06/30/2021 Subjective: Chemo Jenkins [...] 06/04/2020 Performed by Keith Trinidad MD at [facility] OR PERCUTANEOUS NEPHROSTOLITHOTOMY/ PYELOSTOLITHOTOMY - 2 CM OR LESS Right 11/12 Performed by Tristan Bowman MD at [facility] OR URETEROSCOPY WITH URETERAL STENT EXCHANGE Right 02/15/2021 Performed by Tristan Bowman MD at [facility] OR PERCUTANEOUS NEPHROSTOLITHOTOMY/ PYELOSTOLITHOTOMY - GREATER THAN 2 CM Left 04/29/2021 Performed by Kvng Rm MD at [facility] OR PERCUTANEOUS PLACEMENT NEPHROSTOMY CATHETER WITH NEPHROSTOGRAM/ URETEROGRAM/ IMAGE-GUIDANCE Left 04/29/2021 Performed by Kvng Rm MD at [facility] OR CYSTOURETHROSCOPY WITH URETEROSCOPY AND/ OR PYELOSCOPY - WITH REMOVAL/ MANIP ULATION CALCULUS Left 04/29/2021 Performed by Kvng Rm MD at [facility] OR Immunization History Administered Date(s) Administered COVID-19 [...] RIGHT EYE AT BEDTIME Miscellaneous Medical Supply [facility] [place] Urostomy supplies and accessories Dispense one month [...] a s needed. 90 tablet 0 Vit A,C,E-Dgqr-Lhkhap (PRESERVISION AREDS) 14,320-226-200 zllh-rm-bxjh cap Take 2 capsules by mouth daily. [...] RIGHT EYE AT BEDTIME Miscellaneous Medical [employer] [facility] [place] [place] Urostomy supplies and accessories Dispense one month [...] by mouth daily a s needed. Vit A,C,F-Xehv-Bpizba (PRESERVISION AREDS) 14,320-226-200 iqqv-tl-krct cap Take 2 capsules by mouth daily. [...] Staff name: Kvng Rm MD Date: 07/04/2021 LANGUAGE INSTRUCTOR documented in this encounter Plan of Treatment [...] track (07/12/2021 Yes April Marie, 6:07 PM SIGN LANGUAGE INSTRUCTOR) RN Note: "To heal and recover, and get stronger, be as healthy as I can" documented as of this encounter Visit Diagnoses Diagnosis Nephrolithiasis Calculus of kidney * Assessment & Plan Note - Miguel Vargas MD - 06/30/2021 4:01 PM SIGN LANGUAGE INSTRUCTOR Associated Problem(s): Nephrolithiasis 71 yo male with [...] - follow-up in clinic in 9 months LANGUAGE INSTRUCTOR documented in this encounter Historical Medications * This list may reflect changes made after this encounter. Start Date End Date Medication Sig Dispensed Refills 07/13/2021 hydrocortisone acetate Insert or 0 (ANUSOL-HC) 25 mg rectal Apply 25 mg suppository to rectal area as directed every 12 hours. added in this encounter Additional Health Concerns Noted Time Assessment 06/25/2021 8:18 AM SIGN LANGUAGE INSTRUCTOR A fall risk assessment has been complet ed for the patient documented as of this encounter Care Teams Start Date End Date Healthcare Analyst Relationship Specialty 05/17/20 Angelo Gordon MD PCP - General Internal [address] [facility] Medicine [facility] [address] [place] [id number] 05/17/20 Bartolo Cornejo MD Internal [address] [facility] [address] [place] [address] documented as of this encounter
--- OUTSIDE RECORDS SUMMARY | 2021-07-28 19:51 | XMS REPORT | Encounter Summary ---
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 [place], [place] Oncology Referral ID Status Reason Start Date Expiration Visits Vi sits Date Requested Authorized [id number] New Request 07/20/2021 07/20/2022 1 1 IMEDIA ARTIST Reason for Visit * Auth/Cert Diagnoses / Procedures Referred By Contact [facility] Special[facility] Diagnoses Malignant neoplasm of urinary bladder, unspecified site (HCC) Malignant neoplasm of urinary bladder, unspecified site (HCC) [C67.9] Procedures [place] COLOSTOMY/SKIN LEVEL CECOSTOMY COLOSTOMY/ SKIN LEVEL CECOSTOMY Referral ID Status Reason Start Date Expiration Visits Vi sits Date Requested Authorized [id number] 1 1 Encounter Details Care Team Description Date Type Department Kehinde Cao DO [address] [employer] [place], [place] Colon obstruction (HCC) 07/12/2021 Hospital Oncology: [facility] - Encounter A 07/20/2021 [address] [facility] [address] [place] [address] Social History Date Tobacco Use Types Packs/Day Years Used Never Smoker Smokeless Tobacco: Never Used Comments Alcohol Use Standard Drinks/Week Not Currently 0 (1 standard drink = 0.6 o z pure alcohol) Sex Assigned at Date Recorded Male 05/18/2020 12:22 PM MULTIMEDIA ARTIST Date Recorded COVID-19 Exposure Response 07/12/2021 11:38 AM MULTIMEDIA ARTIST In the last month, have you been in contact with No / Unsure someone who was confirmed or suspected to have Coronavirus / COVID-19? documented as of this encounter Last Filed Vital Signs Reading Time Taken Comments Vital Sign 128/79 07/20/2021 11:44 AM MULTIMEDIA ARTIST Blood Pressure 80 07/20/2021 11:44 AM MULTIMEDIA ARTIST Pulse 36.5 C (97.7 F) 07/20/2021 11:44 AM MULTIMEDIA ARTIST Temperature - - Respiratory Rate 93% 07/20/2021 11:44 AM MULTIMEDIA ARTIST Oxygen Saturation - - Inhaled Oxygen Concentration 64.8 kg (142 lb 13.7 oz) 07/15/2021 9:04 AM MULTIMEDIA ARTIST Weight 172.7 cm (5' 8") 07/15/2021 9:04 AM MULTIMEDIA ARTIST Height 21.72 07/15/2021 9:04 AM MULTIMEDIA ARTIST Body Mass Index documented in this encounter [...] * Chemo Ely - 07/20/2021 12:22 PM MULTIMEDIA ARTIST Case Management Progress Note NAME:Chemo Jenkins DO B:1950 AGE: 71 y.o. ADMISSION DATE: 07/12/2021 DAYS ADMITTED: LOS: 8 days Todays Date: 07/20/2021 Plan Patient will DC to [facility] Interventions Support Info or Referral SW submitted referral for outpatient palliative care follow up at [facility] Discharge Planning Medication Needs Financial Legal Other [...] - Dis charge disposition: Rehab Facility (Not [facility]) Destination Coordination complete. Service Provider Selected Services Address Phone Fax Patient Preferred [facility] Inpatient Rehabilitation [address] [place] [address] [phone] Chemo Ely LMSW Voalte Pager: [phone] Office: [phone] IMEDIA ARTIST * Scott Garcia MD - 07/20/2021 12:22 PM MULTIMEDIA ARTIST Physician Discharge Summary Name: Chemo Jenkins Date Of : 1950 Age: 71 years Admit date: 07/12/2021 Discharge date: 07/20/2021 12:22 PM Attending Physician: Dr. Kehinde Cao DO Service: Surgery-Onco logy - [id number] Physician Summary completed by: Scott Garcia MD [...] course was complicated by a large left-sided WEIGHT LOSS COUNSELOR stroke affecting his right sided motor function [...] Encephalopathy Moderate malnutrition (HCC) Acute ischemic left WEIGHT LOSS COUNSELOR stroke (HCC) Coagulopathy (HCC) Hypovolemic shock (HCC) NSTEMI, initial episode of care ([facility]) Principal Problem: Colon obstruction (HCC) Active Problems: ITA (acute kidney injury) (HCC) Acute ischemic stroke (HCC) Acute right hemiparesis (HCC) Homonymous hemianopia, right Hypovolemia Encephalopathy Moderate malnutrition (HCC) Acute ischemic left WEIGHT LOSS COUNSELOR stroke (HCC) Coagulopathy (HCC) Hypovolemic shock (HCC) NSTEMI, initial episode of care ([facility]) Surgical Procedures: Procedure(s) (LRB): EXPLORATORY LAPAROTOMY, DIVERTING [...] times per day after you leave the ho spital. Moving around can help prevent blood [...] you have an emergency after discharge, call . For questions after discharge during business hours (8:00-4:00pm) call and ask for your surgeons nurse. For urgent questions after discharge after business hours, call [phone] and ask to have the provider school transportation director for surgical oncology paged. Discharging attending physician: KEHINDE CAO [[id number]] APPOINTMENT REQUEST: [facility]- Hematology and/or Oncology ([place]) Please f/u with symptom management, plans to [...] outpatient clayton't (provide range): Non-urgent, 1 mon th is OK Pager # of the requesting provider if any questions? Code71 cell Current Discharge Medication List START taking [...] PRESCRIPTION TYPE: Historical Med Miscellaneous Medical Supply [facility] Urostomy supplies and [...] tablet, Refills: 0 PRESCRIPTION TYPE: Normal Vit A,C,N-Avsz-Javkep (PRESERVISION AREDS) 14,320-226-200 dsdp-ew-gfoz cap Take 2 capsules by mouth daily. PRESCRIPTION TYPE: Historical Med Future Appointments Date Time Provider Department Center 07/30/2021 8:45 AM Kehinde Cao DO [address] Exam 07/30/2021 10:00 AM Cody Louie MD [address] Exam 04/13/2022 10:45 AM Kvng mR MD [facility] Pending items needing follow up: n/a Signed: Scott Garcia MD 07/20/2021 cc: Primary Care Physician: Angelo Gordon Referring physicians: Additional provider(s): IMEDIA ARTIST * Isamar Mart [facility] [place] 07/20/2021 10:44 AM MULTIMEDIA ARTIST Case Management Progress Note NAME:Chemo Jenkins B:1950 AGE: 71 y.o. ADMISSION DATE: 07/12/2021 DAYS ADMITTED: LOS: 8 days Todays Date: 07/20/2021 Plan D/C [facility] via [facility] at 12pm . Interventions Support Info or Referral Discharge Planning [facility] updated by team that the pt is medically stable to d/c today. Pt has been accepted by [facility]. They have bed availabilit y today, however the pt would have to leave here by 12pm to be at their facility by 3pm. [facility] received call from Dennis at [facility] - no bed availability this week, possibly next week. SW contacted the pt's , Dorie. Discussed that [facility] could mike e the pt today. Dorie is in agreement with the pt discharging to [facility] if transport can be arranged. [facility] tasked [facility] to check on transportation to [facility]. Transportation secured 12pm with [facility] for $665. Family does not have the [facility] to cover transport. Management has agreed to pay for transportation for the patient. Team placed d/c orders. [facility] reached out to pt's and discussed d/c plan for 12pm via transpo rt. [facility] updated bedside nurse with d/c plan - nurse report [phone]. [facility] delivered transfer packet. [facility] faxed d/c orders to [facility] and notified them of transport being [...] Services Address Phone Fax Patient Preferred [facility] [address] [place] [address] [phone] Isamar Mart LMSW Voalte - [phone] IMEDIA ARTIST * Miguelina Li - 07/20/2021 10:43 AM MULTIMEDIA ARTIST Patient Transportation Quote Request Received request from BRITANY Juarez to check WC transport quotes - 1 liter of 02 to [facility] - [address] [place] [address], [place]: [facility]: [phone]: $665 Available 12PM TODAY. SCHEDULED. [facility] [phone]: $670 [employer] 913- $ waiitng on quote Unavailable today [employer] [facility] [phone]: $416.98 Unavailable today [facility] [phone]: $ No availability. Miguelina Li Echo Technician For further assistance please contact [facility] *[phone] IMEDIA ARTIST * April Calderón RN - 07/19/2021 9:27 AM MULTIMEDIA ARTIST 0915: Per chart review, VSS with intermittent [...] Wahl, RN Inpatient Rehab Admission Nurse (office: [phone] or voalte: [phone]) ELEN Levine, RN IMEDIA ARTIST * Siria Renteria - 07/16/2021 1:07 PM MULTIMEDIA ARTIST Case Management Progress Note NAME:Chemo Jenkins DO B:1950 AGE: 71 y.o. ADMISSION DATE: 07/12/2021 DAYS ADMITTED: LOS: 4 days Todays Date: 07/16/2021 Plan [facility] updated [facility] P: [phone] on plans for pt to go IPR [...] for the patient. Stacey Renteria RN Nurse Director [employer] Available on Voalte [phone] Office hours 8-4 M-F IMEDIA ARTIST * April Calderón, RN - 07/16/2021 10:55 AM MULTIMEDIA ARTIST 1033: Notified by Isamar (FAITH) that the patient is anticipated to be [...] Wahl, RN Inpatient Rehab Admission Nurse (office: [phone] or voalte: [phone]) ELEN Levine, RN IMEDIA ARTIST * Isamar Mart LMSW - 07/16/2021 10:33 AM MULTIMEDIA ARTIST Case Management Progress Note NAME:Chemo Jenkins DO B:1950 AGE: 71 y.o. ADMISSION DATE: 07/12/2021 DAYS ADMITTED: LOS: 4 days Todays Date: 07/16/2021 Plan D/C planning ongoing - IPR Pending: [facility] - likely no bed until late next week [facility] Interventions Support Info or Referral Discharge Planning [facility] updated by team. Potential d/c dates of 07-19-21. SW called [facility] - will likely not have a bed until late next week, if pt qualifies FAITH called the pt's spouse, Dorie. She reported that she would like to cons ider [facility] if they can accept him as she would have to drive to other facilitie s anyway and would like to stay in the area. [facility] notified [facility] of the referral. Medication Needs [...] the patient. Isamar Mart LMSW Voalte - [phone] IMEDIA ARTIST * Isamar Mart LMSW - 07/15/2021 11:23 AM MULTIMEDIA ARTIST Case Management Progress Note NAME:Chemo Jenkins DO [...] and family w ould be interested in [facility] in [place], [place] as it is close to their home. SWAMINAH reviewed EMR - Rehab Med recommends IPR. FAITH sent referral to [place], [place] - [facility] per family request. Medication Needs [...] the patient. Isamar Mart LMSW Voalte - [phone] IMEDIA ARTIST * Isamar Mart LMSW - 07/13/2021 3:27 PM MULTIMEDIA ARTIST Case Management Progress Note NAME:Chemo Jenkins DO B:1950 AGE: 71 y.o. ADMISSION DATE: 07/12/2021 DAYS ADMITTED: LOS: 1 day Todays Date: 07/13/2021 Plan D/C planning ongoing Interventions Support Info or Referral Discharge Planning BRITANY attended team huddle. HEIKE 07-17-21 BRITANY reviewed EMR - PT/OT recs for inpatient at this time. [facility] met with pt and his spouse Dorie. Discussed inpatient recs and provided list of Medicare SNF facilities for the pt and family to have to review. [facility] will con't to follow for d/c planning [...] the patient. Isamar Mart LMSW Voalte - [phone] IMEDIA ARTIST * Siria Renteria - 07/13/2021 12:32 PM MULTIMEDIA ARTIST Case Management Admission Assessment NAME:Chemo Jenkins :1950 AGE: 71 y.o. ADMISSION DATE: 07/12/2021 DAYS ADMITTED: LOS: 1 day Todays Date: 07/13/2021 Source of Information: patient/ Plan Plan: Case Management Assessment NCM disussing dc planning and dispo for pt with new ostomy post dc Pt had [facility] [place], [place]. P:[phone] Fax: [phone] F: [phone] -ACCEPTED Pt saw PCP on file in Jun 08 Pt owns no DME Pt denies having been to any sub acute facilities post hospital dc in past to transport home when medically stable Dc dispo ongoing Patient Address/Phone [address] [address] (home) Emergency Contact Extended Emergency [...] Current/Previous Services PCP Angelo Gordon, , Pharmacy [id number] - [place] - [address] [place] [address] [facility] [address] [place] [address] Durable Medical Equipment Durable Medical Equipment at [...] [facility]: No Outpatient Therapy [facility] Facility/Alf SNF: No NH: No Inpatient Rehab IPR: No [facility] LTACH: No Acute Hospital Stay Stacey Renteria RN Nurse Director [employer] Available on Voalte [phone] Office hours 8-4 M-F IMEDIA ARTIST documented in this encounter Medications at Time [...] 06/08/2020 Miscellaneous Medical Urostomy 20 each Supply [facility] supplies and accessories Dispense [...] 8 hours as needed for Pain. Vit A,C,S-Yzvy-Kctfbw Take 2 0 (PRESERVISION AREDS) capsules by 14,320-226-200 mouth daily. kgmg-qg-ikll cap documented as of this encounter Ordered [...] Means Destination Disposition Wheelchair Rehab Facility (Not [facility]) documented in this encounter Progress Notes * Stevenson Lincoln MD - 07/20/2021 12:22 PM MULTIMEDIA ARTIST Daily Progress Note Today's Date: 07/20/2021 Name: Chemo Jenkins Admission Date: 07/12/2021 (LOS: 8 days) Assessment: 71M with metastatic bladder cancer s/p cystectomy and ileal conduit with peritoneal mets and distal obstruction s/p open loop sigmoid colostomy (/2 4) Principal Problem: Colon obstruction (HCC) Active Problems: ITA (acute kidney injury) (HCC) Acute ischemic stroke (HCC) Acute right hemiparesis (HCC) Homonymous hemianopia, right Hypovolemia Encephalopathy Moderate malnutrition (HCC) Acute ischemic left WEIGHT LOSS COUNSELOR stroke (HCC) Coagulopathy (HCC) Hypovolemic shock (HCC) NSTEMI, initial episode of care ([facility]) Plan: S/p open loop colostomy- ERAS, [...] go to inpatient rehab. Stevenson Lincoln MD 9179 Subjective: ZOILA. Pain controlled. Denies back or [...] Subcutaneous Fat: No Muscle Wasting: Yes Moderate Latter-Day, Clavicle, Deltoid (did not assess lower bod y) Edema: No Malnutrition Interventions: high-kcal high-protein shakes IMEDIA ARTIST * Dena Cotton RN - 07/20/2021 12:22 PM MULTIMEDIA ARTIST Patient discharged via medical transport to [facility] in rehab. PIV removed. Packet se nt with family. No questions at this time. IMEDIA ARTIST * Judy Fitzgerald, OT - 07/20/2021 10:56 AM MULTIMEDIA ARTIST OCCUPATIONAL THERAPY PROGRESS NOTE Name: Chemo Jenkins [...] ce rebellar infarcts with a dominant left WEIGHT LOSS COUNSELOR infarct. Precautions: Falls (colstomy/urostomy) Pain / Complaints: Patient agrees to participate in therapy;Unable to rate Objective Psychosocial Status: Willing and Cooperative to Participate Persons Present: Spouse;Son Home Living Type of Home: House Home Layout: One Level;Stairs to Enter w/o Rails (2-3 LETY) Bathroom Shower / Tub: Walk-in Shower Bathroom Toilet: Standard Home Equipment: Walker Prior Function Level Of [place]: Independent with ADLs and functional transfers;Independen t [...] presents with motor planning and sequencing deficits gloriau ghout. UE AROM Coordination: Moderate Delay Grasp: [...] Recommendations Recommendation: Inpatient setting Therapist: SUKUMAR Sweeney/Bhupinder [id number] Date: 07/20/2021 IMEDIA ARTIST * Dena Cotton, ERNST - 07/20/2021 10:33 AM MULTIMEDIA ARTIST 0850: During med pass and initial assessment, patient's and daughter kennedy amos patient was having some difficulty swallowing his food. Patient took pills o ev. 0930: Paged surg-onc team. Verbal to keep patient NPO and to place a speech ther apy consult for patient. Orders placed. Patient and family updated. 1118: Case management with Surg-onc texted and said patient will be DC to [facility] in [place] around 12 pm today. Patient and family updated. IMEDIA ARTIST * Dena Cotton RN - 07/20/2021 7:45 AM MULTIMEDIA ARTIST Breakfast ordered for patient at this time. IMEDIA ARTIST * Yas Avealr MD - 07/19/2021 9:34 PM MULTIMEDIA ARTIST PALLIATIVE CARE INPATIENT NOTE Name: Chemo Jenkins [...] mentation, however family feels that his is makin g notable improvement. ROS: Denies pain or shortness [...] Results: NA Yas Avelar MD Palliative Care *[phone] Team pgr *[phone] Also on Voalte and AMSConnect IMEDIA ARTIST * Ana Rosenberg RN - 07/19/2021 8:03 PM MULTIMEDIA ARTIST Report to Lisa DUKES . Transferring patient to [place] 1130. IMEDIA ARTIST * Latoya Pastrana PT - 07/19/2021 3:14 PM MULTIMEDIA ARTIST PHYSICAL THERAPY PROGRESS NOTE Name: Chemo Jenkins [...] 11 Standardized (T-scale) Score: 30.25 Basic Mobility [facility] 0-100%: 66.76 CMS G Code Modifier for [...] is needed Therapist: Latoya Pastrana, PT, DPT, MHAM Date: 07/19/2021 IMEDIA ARTIST * Yaritza La, OT - 07/19/2021 10:30 AM MULTIMEDIA ARTIST OCCUPATIONAL THERAPY PROGRESS NOTE Name: Chemo Jenkins [...] ce rebellar infarcts with a dominant left WEIGHT LOSS COUNSELOR infarct. Precautions: Falls (colstomy/urostomy) Pain / Complaints: Patient agrees to participate in therapy;Unable to rate Objective Psychosocial Status: Willing and Cooperative to Participate Persons Present: RehabTechnician;Daughter;Spouse Home Living Type of Home: House Home Layout: One Level;Stairs to Enter w/o Rails (2-3 LETY) Bathroom Shower / Tub: Walk-in Shower Bathroom Toilet: Standard Home Equipment: Walker Prior Function Level Of [place]: Independent with ADLs and functional transfers;Independen t [...] Recommendations Recommendation: Inpatient setting Therapist: Yaritza La OTR/Bhupinder [id number] Date: 07/19/2021 IMEDIA ARTIST * Liliana Choe MD - 07/19/2021 6:26 AM MULTIMEDIA ARTIST Daily Progress Note Today's Date: 07/19/2021 Name: [...] Encephalopathy Moderate malnutrition (HCC) Acute ischemic left WEIGHT LOSS COUNSELOR stroke (HCC) Coagulopathy (HCC) Hypovolemic shock (HCC) NSTEMI, initial episode of care ([facility]) Plan: S/p open loop colostomy- ERAS, [...] limited regardless of the ALIYA results. Cardiol barrysurekha agrees and will hold off on ALIYA for now. Palliative care consulted for goals of care. Rehab consulted - FU recs Lines/Drains- urostomy/colostomy PPX- SCDs, ambulating when hemodynamically safe with PT/OT, chemoppx Cont inpatient management. DC pending increased PO intake and rehab planning Liliana Choe MD 5750 Subjective: ZOILA. Denies pain. Reports minimal PO [...] Subcutaneous Fat: No Muscle Wasting: Yes Moderate Latter-Day, Clavicle, Deltoid (did not assess lower bod y) Edema: No Malnutrition Interventions: high-kcal high-protein shakes IMEDIA ARTIST * Liliana Choe MD - 07/18/2021 10:03 AM MULTIMEDIA ARTIST Daily Progress Note Today's Date: 07/18/2021 Name: [...] Encephalopathy Moderate malnutrition (HCC) Acute ischemic left WEIGHT LOSS COUNSELOR stroke (HCC) Coagulopathy (HCC) Hypovolemic shock (HCC) NSTEMI, initial episode of care ([facility]) Plan: S/p open loop colostomy- ERAS, [...] need rehab on discharge Liliana Choe MD 8696 Subjective: ZOILA. Denies pain. No n/v. Tolerating [...] Subcutaneous Fat: No Muscle Wasting: Yes Moderate Latter-Day, Clavicle, Deltoid (did not assess lower bod y) Edema: No Malnutrition Interventions: high-kcal high-protein shakes IMEDIA ARTIST Associated attestation - Angelo Danielle MD - 07/19/2021 10:44 AM MULTIMEDIA ARTIST ATTESTATION I personally performed the campo portions of the E/M visit, discussed case with re sident and concur with resident documentation of history, physical exam, assessm ent, and treatment plan unless otherwise noted. Staff name: Angelo Danielle MD Date: 07/19/2021 * Benton Chopra, PT - 07/18/2021 9:40 AM MULTIMEDIA ARTIST PHYSICAL THERAPY PROGRESS NOTE Name: Chemo Jenkins [...] Therapist: Benton Chopra PT, DPT Date: 07/18/2021 IMEDIA ARTIST * Nai Cheney RN - 07/17/2021 2:40 PM MULTIMEDIA ARTIST Patient has had increased nausea and bilious emesis after administration of PRN antiemetic. Patient has had sips of water and boost so far this shift. Primary t eam text paged. IMEDIA ARTIST * Mar William MD - 07/17/2021 1:48 PM MULTIMEDIA ARTIST Daily Progress Note Today's Date: 07/17/2021 Name: [...] Encephalopathy Moderate malnutrition (HCC) Acute ischemic left WEIGHT LOSS COUNSELOR stroke (HCC) Coagulopathy (HCC) Hypovolemic shock (HCC) NSTEMI, initial episode of care ([facility]) Plan: S/p open loop colostomy- ERAS, [...] need rehab on discharge Mar William MD 9084 Subjective: ZOILA. Denies pain. No n/v. Tolerating [...] Subcutaneous Fat: No Muscle Wasting: Yes Moderate Latter-Day, Clavicle, Deltoid (did not assess lower bod y) Edema: No Malnutrition Interventions: high-kcal high-protein shakes IMEDIA ARTIST Associated attestation - Angelo Danielle MD - 07/19/2021 10:46 AM MULTIMEDIA ARTIST ATTESTATION I personally performed the campo portions of the E/M visit, discussed case with re sident and concur with resident documentation of history, physical exam, assessm ent, and treatment plan unless otherwise noted. Staff name: Angelo Danielle MD Date: 07/19/2021 * Vivi Stoddard MD - 07/16/2021 4:34 PM MULTIMEDIA ARTIST Staff Cardiology Progress Note Admission Date: 07/12/2021 Today's Date: 07/16/2021 LOS: 4 days Assessment & Plan Chemo Jenkins is a 71 y.o. patient with the following problems: Principal Problem: Colon obstruction (HCC) Active Problems: ITA (acute kidney injury) (HCC) Acute ischemic stroke (HCC) Acute right hemiparesis (HCC) Homonymous hemianopia, right Hypovolemia Encephalopathy Moderate malnutrition (HCC) Acute ischemic left WEIGHT LOSS COUNSELOR stroke (HCC) Coagulopathy (HCC) Hypovolemic shock (HCC) [...] and cerebellar infarcts with a large left WEIGHT LOSS COUNSELOR territory inf arct.MRI 07/13 showed multifocal cerebral and cerebellar infarcts with a domina nt large left WEIGHT LOSS COUNSELOR territory infarct. NSTEMI, type II suspected in [...] and cerebellar infarcts and a large left WEIGHT LOSS COUNSELOR territory infarct which most likely represent combination [...] of atrial fibrillation on tele. I cancelled ALIAY as I do not think i t is high yield and family is having palliative care discussions. His and daughter both discussed their concerns that he would not like to go to a nursing facility. They would like to bring him home but their home is not equipped for him yet. They wanted to discuss possible hospice therapy with his metastatic d [place]. I encouraged palliative care consult. We will [...] rhythym, no atrial fibrillation Vivi Stoddard MD IMEDIA ARTIST * AbhinavYaritza cutler OT - 07/16/2021 3:21 PM MULTIMEDIA ARTIST OCCUPATIONAL THERAPY NOTE Name: Chemo Jenkins : 1950 Age: 71 y.o. Admission Date: 07/12/2021 LOS: 4 days Attempted to see patient at scheduled time with clinical rehabilitation specialist. Patient and family c urrently meeting with Palliative team. OT will continue to follow. Therapist: SUKUMAR Randall/Bhupinder [id number] Date: 07/16/2021 IMEDIA ARTIST * Benton Chopra, PT - 07/16/2021 1:43 PM MULTIMEDIA ARTIST PHYSICAL THERAPY PROGRESS NOTE Name: Chemo Jenkins [...] needed Therapist: Benton Chopra, PT, DPT Date: 07/16/2021 IMEDIA ARTIST * Elvie Ratliff MD - 07/16/2021 11:52 AM MULTIMEDIA ARTIST Neurology Progress Note Chemo Jenkins Admission Date: 07/12/2021 LOS: 4 days Assessment/Plan: Principal Problem: Colon obstruction (HCC) Active Problems: ITA (acute kidney injury) (HCC) Acute ischemic stroke (HCC) Acute right hemiparesis (HCC) Homonymous hemianopia, right Hypovolemia Encephalopathy Moderate malnutrition (HCC) Acute ischemic left WEIGHT LOSS COUNSELOR stroke (HCC) Encephalopathy Pt seen and examined. Family members at bedside. Chart reviewed. relevant neuro images( MRI/MRA 07/13) and labs are reviewed. 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 Exam this am: Pt is awake, alert. Does not know his age. Poor short term memory. Unable to rec all I just had conversation with him. Family reported that pt was paranoid from time to time. assessment and plan; WEIGHT LOSS COUNSELOR and other territory stroke: d/w pt family, ALIYA will not change overall manag ement pic. Will not pursue aggressive work up. Metastatic urothelial carcinoma: on palliative tumor management. Confusion and poor short term memory: multiple factorial. Gis Analyst stroke involving h is left temporal lobe contribute his poor short term memory and confusion signif icantly. In consideration of his over all clinical pic, recommended palliative team consu lt for goal of care discussion. Cont asa for now. Stroke respond team will sign off. Please call us with questions. Elvie Ratliff MD Vascular neurologist On [place]. IMEDIA ARTIST * Bakari Stone, PHARMD - 07/16/2021 10:25 AM MULTIMEDIA ARTIST Pharmacy Note: Patients Own Med The following medications have been identified by pharmacy and placed in the [facility] medication room for storage: Netarsudil ( Rhopressa) 0.02% soln. rx [id number] Lot # [id number] exp 08/2023. The patient may use their own supply of these medications during this admission. All doses should be administered and documented per hospital policy. IMEDIA ARTIST * Scott Garcia MD - 07/16/2021 6:32 AM MULTIMEDIA ARTIST Daily Progress Note Today's Date: 07/16/2021 Name: [...] Encephalopathy Moderate malnutrition (HCC) Acute ischemic left WEIGHT LOSS COUNSELOR stroke (HCC) Coagulopathy (HCC) Hypovolemic shock (HCC) NSTEMI, initial episode of care ([facility]) Plan: S/p open loop colostomy- ERAS, [...] di scuss this with neurology staff and DIRECTOR HEDIS. Lines/Drains- urostomy/colostomy PPX- SCDs, ambulating when hemodynamically [...] Subcutaneous Fat: No Muscle Wasting: Yes Moderate Latter-Day, Clavicle, Deltoid (did not assess lower bod y) Edema: No Malnutrition Interventions: high-kcal high-protein shakes IMEDIA ARTIST * Laura Damon RN - 07/15/2021 3:57 PM MULTIMEDIA ARTIST 1535: Surg-onc team notified of bleeding around site of colostomy. Per team, tod t is expected. No new orders at this time. Colostomy bag changed. IMEDIA ARTIST * Elvie Ratliff MD - 07/15/2021 3:14 PM MULTIMEDIA ARTIST Images from the original note were not [...] cerebellar infa rcts with a large left WEIGHT LOSS COUNSELOR territory infarct. At that time the stroke team was a ctivated on 07/13 the NIHSS was 7 for disorientation, R side drift, R homonymous hemianopia and L side extinction deficit. Elevated Creatinine prevented us from getting CTA head and neck. 07/13 MRI head: Revealed multifocal cerebral and cerebellar infarcts with a large left WEIGHT LOSS COUNSELOR territory infarct. This may represent a combination [...] language) 2=neither correct 2 1c. 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, teacher drama and release non-paretic hand (other 1 step [...] cerebellar infarcts with a dominant large left WEIGHT LOSS COUNSELOR territory infarct. This appears represent a combination [...] MRA head: 1. Occlusion of the left WEIGHT LOSS COUNSELOR at the level of the mid to distal P2 segment (corre sponding to the large left WEIGHT LOSS COUNSELOR territory infarct). 2. Otherwise patent major intracranial arteries without focal stenosis. Otf Vines APRN-ANN Vascular Neurology [id number] or Voalte IMEDIA ARTIST * Vivi Stoddard MD - 07/15/2021 2:52 PM MULTIMEDIA ARTIST CARDIOLOGY CONSULT PROGRESS NOTE Patient Name: Chemo [...] and cerebellar infarcts and a large left WEIGHT LOSS COUNSELOR te rritory infarct which most likely represent [...] urothelial carcinoma Loc Trevino, Fellow, Cardiology Pager: [phone] I personally took the history, examined the patient and formulated the treatment plan. I discussed the above with the fellow. IMEDIA ARTIST * Yaritza La, OT - 07/15/2021 2:50 PM MULTIMEDIA ARTIST OCCUPATIONAL THERAPY PROGRESS NOTE Name: Chemo Jenkins [...] ce rebellar infarcts with a dominant left WEIGHT LOSS COUNSELOR infarct. Precautions: Falls (colstomy/urostomy) Pain / Complaints: Patient agrees to participate in therapy;Unable to rate Pain Location: Abdomen Objective Psychosocial Status: Willing and Cooperative to Participate Persons Present: RehabTechnician;Spouse;Daughter Home Living Type of Home: House Home Layout: One Level;Stairs to Enter w/o Rails (2-3 LETY) Bathroom Shower / Tub: Walk-in Shower Bathroom Toilet: Standard Home Equipment: Walker Prior Function Level Of [place]: Independent with ADLs and functional transfers;Independen t [...] setting;Recommend rehab medicine consult Therapist: SUKUMAR Randall/Bhupinder [id number] Date: 07/15/2021 IMEDIA ARTIST * Kely Hernandez, RD - 07/15/2021 1:23 PM MULTIMEDIA ARTIST CLINICAL NUTRITION Clinical Nutrition Follow-Up Assessment Name: Chemo Jenkins : 1950 Age: 71 y.o. Admission Date: 07/12/2021 LOS: 3 days Recommendation: ADAT to goal regular diet. Please encourage high-kcal high-protein unit shakes: High Protein Shake Ideas ? Vanilla 1 vanilla Bunola Instant Breakfast + 2 vanilla ice creams + 1 vanil la Boost ? Very Chocolate 1 chocolate Bunola Instant Breakfast + 2 chocolate ice cream s + 1 chocolate Boost ? Chocolate Raspberry 3 pkg Beneprotein + 1 raspberry sherbet + 1 chocolate Dipesh t ? Chocolate Peanut Butter 2 pkg Beneprotein + 1 chocolate milk + 2 chocolate ic e creams + 2 pkg peanut butter ? Dixie Shake 3 pkg Beneprotein + 1 vanilla ice cream + 1 peach Boost Breeze ? [place] 3 pkg Beneprotein + 2 orange sherbet + 1 vanilla Boost ? Chocolate Banana 3 pkg Beneprotein+ 1 chocolate milk + 2 chocolate ice creams + 1/2 banana ? Vanilla Peanut Butter Banana 3 pkg Beneprotein + 2 vanilla ice creams + 1 pkg peanut butter + 1/2 banana + 1 vanilla Boost ? Wishram 1 strawberry Bunola Instant Breakfast + 2 vanilla ice creams + 1 strawberry Boost ? Chocolate Peanut Butter Banana 3 pkg Beneprotein + 2 chocolate ice creams + 1 pkg peanut butter + 1/2 banana + 1 chocolate Boost ? Lemon Cream 2 pkg Beneprotein + 2 Micronesian ice lemon (partially melted) + 1 van illa ice cream + 1 whole milk ? Gonzalez Slush 1 pkg Prosource + 1 pkg Beneprotein + 2 Micronesian ice gonzalez (parti ally melted) Comments: Mr. Jenkins is a 71yoM with PMH notable for metastatic urothelial carcinoma s/p r adical cystectomy/prostatectomy with ileal conduit (06/04/20) now with distal ob struction s/p loop colostomy (07/12). Followed up with pt and family members at [facility] today. Advanced to clear liquids 07/13 [...] Current Oral Intake: Inadequate Estimated Calorie Needs: 3728-1565 (30-35 kcal/kg) Estimated Protein Needs: 97 (1.5 g/kg) Malnutrition Assessment: Malnutrition present on admission ICD-10 code E44: Chronic illness/Moderate non-severe malnutrition Mild loss of muscle mass, Energy intake: < 75% of estimated energy requirement for 1 month or more Malnutrition Interventions: high-kcal high-protein shakes Nutrition Focused Physical Assessment: Loss of Subcutaneous Fat: No Muscle Wasting: Yes; Severity: Moderate; Location: Latter-Day, Clavicle, Deltoid (di d not assess lower [...] , RDN, LD, CNSC Available via Voalte [id number] IMEDIA ARTIST * Scott Garcia MD - 07/15/2021 1:16 PM MULTIMEDIA ARTIST Daily Progress Note Today's Date: 07/15/2021 Name: [...] 1354 Upper Left Quadrant 80 Edema: No IMEDIA ARTIST * Latoya Pastrana, PT - 07/15/2021 12:00 PM MULTIMEDIA ARTIST PHYSICAL THERAPY PROGRESS NOTE Name: Chemo Jenkins [...] to be re-oriented despite multiple attempts, tulio L prefere nce and R side inattention [...] Latoya Pastrana PT, DPT, AM Date: 07/15/2021 IMEDIA ARTIST * Marisol Sky RN - 07/15/2021 10:00 AM MULTIMEDIA ARTIST Wound Ostomy Note NAME:Chemo Jenkins :1950 AGE: [...] this time. Pt has been enrolled in [facility]. Ostomy Care: Suggested Pouching Supplies: Urostomy - 2 piece 51782, 32568 Colostomy - 1 piece Jhoana colostomy pouch 10343 or 8908 1. Change pouch with any sign of leaking 2. Clean skin with water only - no soap or wipes 3. If skin is broken down surrounding stoma, sprinkle stoma powder and wipe away the excess. 4. Eudora no sting skin prep on powdered skin and let dry completely 5. Cut new pouch leaving 1/8"-1/4" of skin showing between the stoma and pouch 6. Warm new pouch in palm of hands 7. Ensure skin is dry and apply new pouch 8. Lay warm hand over pouch once it's applied Marisol Sky RN, BSN, CWON Wound Ostomy Nursing Consult Service Available via Thrill or OMGPOP [facility] [id number] Office number [phone] Contact Team "Edi Programmer Analyst" after 4:00pm M-F/weekends/holidays IMEDIA ARTIST * Myra Heredia RN - 07/14/2021 7:00 PM MULTIMEDIA ARTIST I have reviewed the notes, assessments, and/or procedures performed by Murali pacheco, and concur with her/his documentation unless otherwise noted. IMEDIA ARTIST * Scott Garcia MD - 07/14/2021 4:18 PM MULTIMEDIA ARTIST Daily Progress Note Today's Date: 07/14/2021 Name: [...] for close hemodynamic monitoring Scott Garcia MD [id number] Subjective: Yesterday with acute stroke given weakness [...] 1354 Upper Left Quadrant 80 Edema: No IMEDIA ARTIST Associated attestation - Kehinde Cao DO - 07/15/2021 10:32 AM MULTIMEDIA ARTIST ATTESTATION I personally performed the campo portions [...] Vivi Stoddard MD - 07/14/2021 3:29 PM MULTIMEDIA ARTIST CARDIOLOGY CONSULT PROGRESS NOTE Patient Name: Chemo [...] and cerebellar infarcts and a large left WEIGHT LOSS COUNSELOR te rritory infarct which most likely represent [...] urothelial carcinoma Loc Trevino, Fellow, Cardiology Pager: [phone] I personally took the history, examined the patient and formulated the treatment plan. I discussed the above with the fellow. Rec outpatient reg thall. Carotid duplex in hospital and a 30 day event monitor at discharge. Will sign off, ple ase call with questions. IMEDIA ARTIST * Yaritza La, OT - 07/14/2021 3:00 PM MULTIMEDIA ARTIST OCCUPATIONAL THERAPY PROGRESS NOTE Name: Chemo Jenkins [...] ce rebellar infarcts with a dominant left WEIGHT LOSS COUNSELOR infarct. Precautions: Falls (colstomy/urostomy) Pain / Complaints: Patient agrees to participate in therapy;Unable to rate Pain Location: Abdomen Objective Psychosocial Status: Willing and Cooperative to Participate Persons Present: RehabTechnician;Spouse;Son Home Living Type of Home: House Home Layout: One Level;Stairs to Enter w/o Rails (2-3 LETY) Bathroom Shower / Tub: Walk-in Shower Bathroom Toilet: Standard Home Equipment: Walker Prior Function Level Of [place]: Independent with ADLs and functional transfers;Independen t [...] setting;Recommend rehab medicine consult Therapist: Yaritza La OTFlorentin/Bhupinder [id number] Date: 07/14/2021 IMEDIA ARTIST * Baylee Sherman M.Div, [facility] - 07/14/2021 12:10 PM MULTIMEDIA ARTIST Data Analytics Architect Note: Admit Date: 07/12/2021 I received an update on patient from his RN. Data Analytics Architect met with patient and his family (spouse Dorie & son Ector) per request for a director mobile visit. I introduced spiritual care and offered supportive presence. Pt was not sure what had happened and notes he couldn't remember the surgery. Spouse and I offered words of support to pt. I confirmed that pt is Pentecostalism. Pt asked me to pray for him. Family and I gath ered around pt and we prayed. Pt was tearful after the prayer. We continued to offer support noting that pt will be well cared for while at [facility]. Galvanizer Zinc will remain available as neede. The spiritual care team is available as needed, 09/01, through the [place] [facility] ([phone]). For a response within 24 hours, please submit an order in O2 fo r a director mobile consult. Date/Time: User: 07/14/2021 12:10 PM Baylee Sherman M.Div, [facility] PCU 3 PCU IMEDIA ARTIST * Otf Vines, DIRECTOR HEDIS-NEWSPAPER DISTRIBUTOR SUPERVISOR - 07/14/2021 8:54 AM MULTIMEDIA ARTIST Images from the original note were not included. Vascular Neurology Progress Note Admission Date: 07/12/2021 LOS: 2 days Principal Problem: Colon obstruction (HCC) Active Problems: Acute ischemic stroke (HCC) Acute right hemiparesis (HCC) Homonymous hemianopia, right Assessment: Chemo Gregorio Jenkins is a 71 y.o. male with [...] cerebellar infa rcts with a large left WEIGHT LOSS COUNSELOR territory infarct. At that time the stroke team was a ctivated on 07/13 the NIHSS was 7 for disorientation, R side drift, R homonymous hemianopia and L side extinction deficit. Elevated Creatinine prevented us from getting CTA head and neck. 07/13 MRI head: Revealed multifocal cerebral and cerebellar infarcts with a large left WEIGHT LOSS COUNSELOR territory infarct. This may represent a combination [...] language) 2=neither correct 2 1c. 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, teacher drama and release non-paretic hand (other 1 step [...] cerebellar infarcts with a dominant large left WEIGHT LOSS COUNSELOR territory infarct. This appears represent a combinatio [...] MRA head: 1. Occlusion of the left WEIGHT LOSS COUNSELOR at the level of the mid to distal P2 segment (corre sponding to the large left WEIGHT LOSS COUNSELOR territory infarct). 2. Otherwise patent major intracranial arteries without focal stenosis. Otf Vines APRN-NEWSPAPER DISTRIBUTOR SUPERVISOR Vascular Neurology p2282 or Voalte IMEDIA ARTIST Associated attestation - Angela Lewis MD - 07/14/2021 12:08 PM MULTIMEDIA ARTIST ATTESTATION I personally interviewed and examined the patient. I have reviewed the history, physical, impression and plan outlined by the Nurse Practitioner. Exam unchanged from yesterday, although he is more alert and interactive. He has right homonomous hemianopia, drift RUE and RLE. -MRI/MRA reviewed: MRI shows multifocal cerebral and cerebellar infarcts with a dominant left WEIGHT LOSS COUNSELOR infarct. Pattern looks both embolic and watershed. Gradient susceptibility in right caudate, left parietal, occipital lobes consistent with petechial hemorrhage. MRA iwht occluded left WEIGHT LOSS COUNSELOR at P2 segment. -Echo: technically difficult study, [...] Latoya Pastrana, PT - 07/14/2021 8:20 AM MULTIMEDIA ARTIST PHYSICAL THERAPY NOTE Name: Chemo Jenkins : [...] Latoya Pastrana PT, DPT, MHAM Date: 07/14/2021 IMEDIA ARTIST * Dwaine Lanier, RT - 07/13/2021 10:21 PM MULTIMEDIA ARTIST RT Adult Assessment Note NAME:Chemo Jenkins :1950 [...] clear and diminished Respiratory Effort: non labored IMEDIA ARTIST * Lilian Haque RN - 07/13/2021 9:52 PM MULTIMEDIA ARTIST 2100: Dr. Shepherd notified of hypotension. BP sustained 80/30. 500cc bolus of LR given. Labs drawn. 2144: BP marked improvement. Pt to MRI with resource nurse x2. 2300: Pt returned to floor with RNx2, no acute events while in MRI, VSS. 0030: Dr. Shepherd notified of persistent hypotension. 1u PRBC ordered. 0215: 1u PRBC completed without any adverse events. BP improved IMEDIA ARTIST * Jenifer Flores RN - 07/13/2021 9:44 PM MULTIMEDIA ARTIST Patient taken to MRI via bed on monitor with 2 Rn's. Patient monitored by Kiya leavitt RN during scan. IMEDIA ARTIST * Keanu Shepherd DO - 07/13/2021 9:26 PM MULTIMEDIA ARTIST Brief Surgical Oncology Note Discussed elevated troponin with cardiology. Will continue to trend. No hep gtt at this time especially in the setting of an acute CVA. Will continue with ASA 8 1 mg. Atorvastatin added per cardiology recommendations Keanu Shepherd DO [id number] IMEDIA ARTIST * Lavern Lucas RN - 07/13/2021 12:59 PM MULTIMEDIA ARTIST 0800: initial assessment, no acute changes from [...] 1830: notified of increasing size of colostomy IMEDIA ARTIST * Latoya Pastrana, PT - 07/13/2021 12:12 PM MULTIMEDIA ARTIST PHYSICAL THERAPY ASSESSMENT Name: Chemo Jenkins : [...] Strength Overall Strength: Generalized Weakness (R side teacher drama weaker than the L) Posture/Neurological Posture/Neuro Comments: [...] Latoya Pastrana PT, DPT, AM Date 07/13/2021 IMEDIA ARTIST * Yaritza La, OT - 07/13/2021 10:33 AM MULTIMEDIA ARTIST OCCUPATIONAL THERAPY ASSESSMENT NOTE Name: Chemo Jenkins [...] Home Equipment: Walker Prior Function Level Of [place]: Independent with ADLs and functional transfers;Independen t [...] Recommendations Recommendation: Inpatient setting Therapist: SUKUMAR Randall/Bhupinder [id number] Date: 07/13/2021 IMEDIA ARTIST * Indu Garcia MD - 07/13/2021 8:33 AM MULTIMEDIA ARTIST Anesthesia Follow-Up Evaluation: Post-Procedure Day One Name: [...] acceptable and room air Cardiovascular Status:acceptable Regional/Neuroaxial: IMEDIA ARTIST * Scott Garcia MD - 07/13/2021 7:07 AM MULTIMEDIA ARTIST Daily Progress Note Today's Date: 07/13/2021 Name: [...] for close hemodynamic monitoring Scott Garcia MD [id number] Subjective: Hypotensive and lethargic overnight, workup consistent [...] Colostomy 07/12/21 1354 Upper Left Quadrant 80 IMEDIA ARTIST Associated attestation - Kehinde Cao DO - 07/15/2021 10:32 AM MULTIMEDIA ARTIST ATTESTATION I personally performed the campo portions of the E/M visit, discussed case with re sident and concur with resident documentation of history, physical exam, assessm ent, and treatment plan unless otherwise noted. Staff name: Kehinde Cao, Date: 07/15/2021 Bleeding overnight Given units * Lilian Haque, ERNST - 07/13/2021 1:27 AM MULTIMEDIA ARTIST 224: pt arrived on unit. LR infusing. Orders [...] lethargic overnight. Disoriented x3-4. Sleeping between cares IMEDIA ARTIST * Mae Mishra, ERNST - 07/12/2021 10:32 PM MULTIMEDIA ARTIST Rapid Response called to transfer pt to SICU per Dr Shepherd .BP's remain to range 80-88/49-56. HR mid 70's-lower 80's. Pt just completed 1 unit of PRBC's. IMEDIA ARTIST * Mae Mishra, ERNST - 07/12/2021 8:35 PM MULTIMEDIA ARTIST Pt's BP at 2023 89/54, HR 80, RR 14, O2 sat [address] Bradford paged and upd ate on vitals. Pt lethargic, difficult to arouse. Stated that she would be up to see pt. At this time, BP 81/50. Rapid response was called. Dr Bradford at [facility]. IMEDIA ARTIST * Leny Bradford MD - 07/12/2021 8:30 PM MULTIMEDIA ARTIST Brief Surgery Note: Patient seen and examined [...] Leny Bradford MD General Surgery Resident, PGY1 IMEDIA ARTIST * Tamika Ramires RN - 07/12/2021 6:40 PM MULTIMEDIA ARTIST Pt colostomy bag is found to be [...] at t his time, rates pain 0/10. IMEDIA ARTIST * Mike Avila RN - 07/12/2021 12:05 PM MULTIMEDIA ARTIST Wound Ostomy Note NAME:Chemo Jenkins :1950 AGE: 71 y.o. ADMISSION DATE: 07/12/2021 DAYS ADMITTED: LOS: 0 days Reason for Consult/Visit: ostomy marking Assessment/Plan: Active Problems: * No active hospital problems. * Planned Procedure: Colostomy Surgeon: Nash Abdomen remains smooth in supine and seated positions. Sites x 1 marking with " * " in LUQ quadrant. Urostomy at RUQ Stoma red moist protrudes. [place] two piece flat #[id number] on no w. Our service will plan to follow up with patient post operatively and implement o stomy education if warranted. Brief discussion with patient about stoma and futu re inpatient stoma/pouch care. All questions from patient answered at this time. Will continue to follow. Mike Avila RN, BSN Wound/ Ostomy Nursing Consult Service Office: [phone] Pager: [phone] Wound/ Ostomy Team pager (after hours/ weekends): [phone] IMEDIA ARTIST documented in this encounter H&P Notes * Scott Garcia MD - 07/12/2021 12:12 PM MULTIMEDIA ARTIST History and Physical Update Note Allergies: Tegaderm, Erythromycin, and Readyprep chg [chlorhexidine gluconate] Lab/Radiology/Other Diagnostic Tests: No pertinent labs Point of Care Testing: (Last 24 hours): Nutrition: No Dietitian Consult Wound: No Wound Consult Only change to plan is operative exposure. Will proceed with exploratory laparot khoa, colostomy creation, possible bowel resection Scott Garcia MD Pager [phone] IMEDIA ARTIST * Laina Cheney APRN-NEWSPAPER DISTRIBUTOR SUPERVISOR - 07/09/2021 9:30 AM MULTIMEDIA ARTIST Images from the original note were not [...] history is an appendectomy. They live in [facility]. They have a daughter coming into [...] propria (detrusor muscle) (based on prior biopsy [id number]) Regional Lymph Nodes (pN) pN0: No lymph [...] 06/04/2020 Performed by Keith Trinidad MD at [facility] OR PERCUTANEOUS NEPHROSTOLITHOTOMY/ PYELOSTOLITHOTOMY - 2 CM OR LESS Right 11/12 Performed by Tristan Bowman MD at [facility] OR URETEROSCOPY WITH URETERAL STENT EXCHANGE Right 02/15/2021 Performed by Tristan Bowman MD at [facility] OR PERCUTANEOUS NEPHROSTOLITHOTOMY/ PYELOSTOLITHOTOMY - GREATER THAN 2 CM Left 04/29/2021 Performed by Kvng Rm MD at [facility] OR PERCUTANEOUS PLACEMENT NEPHROSTOMY CATHETER WITH NEPHROSTOGRAM/ URETEROGRAM/ IMAGE-GUIDANCE Left 04/29/2021 Performed by Kvng Rm MD at [facility] OR CYSTOURETHROSCOPY WITH URETEROSCOPY AND/ OR PYELOSCOPY - WITH REMOVAL/ MANIP ULATION CALCULUS Left 04/29/2021 Performed by Kvng Rm MD at [facility] OR No family history on file. [...] [facility] [place] Urostomy supplies and [...] by mouth daily a s needed. Vit A,C,M-Xgqo-Yxphul (PRESERVISION AREDS) 14,320-226-200 vgvt-ol-mdpa cap Take 2 capsules by mouth daily. [...] Kehinde Díaz aft DO. Laina Cheney MSN, DIRECTOR HEDIS, AGCNS-BC, AGPCNP-BC Advanced Practice Provider Colon and Rectal Surgery Surgical Oncology [place] for Dr. Cao, Dr. Morel and Dr. Danielle Pager: [phone] Available via Voalte and ONEHOPEatr Electronically signed by Laina Cheney, DIRECTOR HEDIS-NEWSPAPER DISTRIBUTOR SUPERVISOR at 07/09/2021 11:59 AM MULTIMEDIA ARTIST documented in this encounter Procedure Notes * Simba Gonzalez MD - 07/12/2021 11:14 PM MULTIMEDIA ARTIST Brief Procedure Note Date: 07/12/20 Procedure: radial arterial line insertion Primary Surgeon: Dr. Cao Fast Food Cook: Simba Gonzalez MD Indications: Need for hemodynamic [...] of Emergency Medicine Voalte preferred | Callback [phone] IMEDIA ARTIST * Scott Garcia MD - 07/12/2021 2:10 PM MULTIMEDIA ARTIST Brief Operative Note Name: Chemo Jenkins is [...] PACU - stable Scott Garcia MD Pager [phone] IMEDIA ARTIST documented in this encounter Consult Notes * Anju Mcgowan MD - 07/16/2021 3:26 PM MULTIMEDIA ARTIST Associated Order(s): CONSULT ADULT PALLIATIVE CARE PROVIDER [...] completed and found multifocal acute to subac [place] appearing bilateral cerebral and cerebellar infarcts with a large left WEIGHT LOSS COUNSELOR t erritory infarct. MRI 07/13 showed multifocal cerebral and cerebellar infarcts wi th a dominant large left WEIGHT LOSS COUNSELOR territory infarct. He sees Dr Louie as [...] would be highly likely to in the ga dst of the trauma of a code- [...] nixon ffered multiple strokes including a sizable WEIGHT LOSS COUNSELOR stroke. Chemo denies any curren t symptoms [...] 06/04/2020 Performed by Keith Trinidad MD at [facility] OR PERCUTANEOUS NEPHROSTOLITHOTOMY/ PYELOSTOLITHOTOMY - 2 CM OR LESS Right 11/12 Performed by Tristan Bowman MD at [facility] OR URETEROSCOPY WITH URETERAL STENT EXCHANGE Right 02/15/2021 Performed by Tristan Bowman MD at [facility] OR PERCUTANEOUS NEPHROSTOLITHOTOMY/ PYELOSTOLITHOTOMY - GREATER THAN 2 CM Left 04/29/2021 Performed by Kvng Rm MD at [facility] OR PERCUTANEOUS PLACEMENT NEPHROSTOMY CATHETER WITH NEPHROSTOGRAM/ URETEROGRAM/ IMAGE-GUIDANCE Left 04/29/2021 Performed by Kvng Rm MD at [facility] OR CYSTOURETHROSCOPY WITH URETEROSCOPY AND/ OR PYELOSCOPY - WITH REMOVAL/ MANIP ULATION CALCULUS Left 04/29/2021 Performed by Kvng Rm MD at [facility] OR EXPLORATORY LAPAROTOMY, DIVERTING LOOP COLOSTOMY N/A 07/12/2021 Performed by Kehinde Cao DO at [facility] OR Social History Tobacco Use Smoking status: Never Smoker Smokeless tobacco: Never Used Vaping Use Vaping Use: Never used Substance Use Topics Alcohol use: Not Currently Drug use: Not Currently Social History Social History Narrative Not on file 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 No pertinent [...] cerebellar infarcts with a dominant large left WEIGHT LOSS COUNSELOR territory infarct. This appears represent a combination [...] MRA head: 1. Occlusion of the left WEIGHT LOSS COUNSELOR at the level of the mid to distal P2 segment (corresponding to the large left WEIGHT LOSS COUNSELOR territory infarct). 2. Otherwise patent major intracranial arteries without focal stenosis. By my electronic signature, I attest that I have personally reviewed the images for this examination and formulated the interpretations and opinions expressed in this report Vivi Pisano M Fellow Available on Voalte ATTESTATION I personally [...] care and treatment options 70 minutes >50% funeral counselor and coordination of care Staff name: Anju Mcgowan MD Date: 07/16/2021 C Danyel Guerin MD - 07/15/2021 9:45 AM MULTIMEDIA ARTIST Associated Order(s): CONSULT REHABILITATION MEDICINE PHYSICIAN Physical [...] right Hypovolemia Encephalopathy Multifocal embolic strokes Left WEIGHT LOSS COUNSELOR stroke Gait abnormality Impaired mobility/ADLs Impaired transfers Cognitive Deficits Chemo Jenkins is a 71 y.o. year old male admitted to [facility] on 07/12/2021 with the following issues: Multifocal embolic and left WEIGHT LOSS COUNSELOR strokes with right hemiparesis, cognitive defici ts [...] setting of multi focal embolic and left WEIGHT LOSS COUNSELOR stroke with associated aphasia, cognitive deficits, d [...] the rectum with colonic obstruction presenting to [facility] on 07/12 for scheduled exploratory laparotomy with [...] ebellar and cerebral infarcts with large left WEIGHT LOSS COUNSELOR territory infarct likely embol ic in nature [...] 06/04/2020 Performed by Keith Trinidad MD at [facility] OR PERCUTANEOUS NEPHROSTOLITHOTOMY/ PYELOSTOLITHOTOMY - 2 CM OR LESS Right 11/12 Performed by Tristan Bowman MD at [facility] OR URETEROSCOPY WITH URETERAL STENT EXCHANGE Right 02/15/2021 Performed by Tristan Bowman MD at [facility] OR PERCUTANEOUS NEPHROSTOLITHOTOMY/ PYELOSTOLITHOTOMY - GREATER THAN 2 CM Left 04/29/2021 Performed by Kvng Rm MD at [facility] OR PERCUTANEOUS PLACEMENT NEPHROSTOMY CATHETER WITH NEPHROSTOGRAM/ URETEROGRAM/ IMAGE-GUIDANCE Left 04/29/2021 Performed by Kvng Rm MD at [facility] OR CYSTOURETHROSCOPY WITH URETEROSCOPY AND/ OR PYELOSCOPY - WITH REMOVAL/ MANIP ULATION CALCULUS Left 04/29/2021 Performed by Kvng Rm MD at [facility] OR EXPLORATORY LAPAROTOMY, DIVERTING LOOP COLOSTOMY N/A 07/12/2021 Performed by Kehinde Cao DO at [facility] OR Social History Socioeconomic History Marital status: [...] out with his L hand on command. 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 Gen: [...] 0.8 07/12/2021 Radiology: Reviewed Danyel Sosa MD IMEDIA ARTIST * Kely Hernandez, RD - 07/13/2021 1:33 PM MULTIMEDIA ARTIST Associated Order(s): CONSULT DIETITIAN CLINICAL NUTRITION Clinical Nutrition Initial Assessment Name: Chemo Jenkins : 1950 Age: 71 y.o. Admission Date: 07/12/2021 LOS: 1 day Recommendation: ADAT to goal regular diet. Please encourage high-kcal high-protein unit shakes: High Protein Shake Ideas ? Vanilla 1 vanilla Bunola Instant Breakfast + 2 vanilla ice creams + 1 vanil la Boost ? Very Chocolate 1 chocolate Bunola Instant Breakfast + 2 chocolate ice cream s + 1 chocolate Boost ? Chocolate Raspberry 3 pkg Beneprotein + 1 raspberry sherbet + 1 chocolate Dipesh t ? Chocolate Peanut Butter 2 pkg Beneprotein + 1 chocolate milk + 2 chocolate ic e creams + 2 pkg peanut butter ? Dixie Shake 3 pkg Beneprotein + 1 vanilla ice cream + 1 peach Boost Breeze ? Jones Socrates 3 pkg Beneprotein + 2 orange sherbet + 1 vanilla Boost ? Chocolate Banana 3 pkg Beneprotein+ 1 chocolate milk + 2 chocolate ice creams + 1/2 banana ? Vanilla Peanut Butter Banana 3 pkg Beneprotein + 2 vanilla ice creams + 1 pkg peanut butter + 1/2 banana + 1 vanilla Boost ? Wishram 1 strawberry Bunola Instant Breakfast + 2 vanilla ice creams + 1 strawberry Boost ? Chocolate Peanut Butter Banana 3 pkg Beneprotein + 2 chocolate ice creams + 1 pkg peanut butter + 1/2 banana + 1 chocolate Boost ? Lemon Cream 2 pkg Beneprotein + 2 Micronesian ice lemon (partially melted) + 1 van illa ice cream + 1 whole milk ? Gonzalez Slush 1 pkg Prosource + 1 pkg Beneprotein + 2 Micronesian ice gonzalez (parti ally melted) Comments: Mr. [...] Current Oral Intake: NPO Estimated Calorie Needs: 9466-2467 (30-35 kcal/kg) Estimated Protein Needs: 97 (1.5 [...] MS, RDN, LD, CNSC Available via Voalte [id number] IMEDIA ARTIST * Marisol Sky RN - 07/13/2021 10:00 AM MULTIMEDIA ARTIST Associated Order(s): CONSULT WOUND/OSTOMY TEAM NURSE Images [...] Suggested Pouching Supplies: Urostomy - 2 piece 35917, 50636 Colostomy - 1 piece Jhoana colostomy pouch 99307 or 8901 1. Change pouch with any sign of leaking 2. Clean skin with water only - no soap or wipes 3. If skin is broken down surrounding stoma, sprinkle stoma powder and wipe aw ay the excess. 4. Eudora no sting skin prep on powdered skin and let dry completely 5. Cut new pouch leaving 8"-1" of skin showing between the stoma and pouch 6. Warm new pouch in palm of hands 7. Ensure skin is dry and apply new pouch 8. Lay warm hand over pouch once it's applied Ileal Conduit 06/04/20 0550 Lower Right Quadrant (Active) 06/04/20 0550 Lower Right Quadrant Agree With My Assessment? 07/13/21 1200 Stoma Assessment [place], round, protruding 07/13/21 1000 Peristomal Skin Assessment [...] Consult Service Available via Voalte Text or [facility] M-F [phone] Office number [phone] Contact Team "Edi Programmer Analyst" after 4:00pm M-F/weekends/holidays IMEDIA ARTIST * Vivi Stoddard MD - 07/13/2021 5:00 AM MULTIMEDIA ARTIST Associated Order(s): CONSULT CARDIOLOGY PHYSICIAN CARDIOLOGY CONSULT [...] After 5PM please call Cardiology deb hicks school transportation director. Monday - Monday 8AM-5PM please call Cardiology consult pager. Valentina Venegas Fellow, Cardiovascular Medicine Pager: [phone] I personally took the history, examined the [...] RIGHT EYE AT BEDTIME [employer] [facility] [place] Urostomy supplies and [...] by mouth daily a s needed. Vit A,C,Z-Rdzb-Zhrzqm (PRESERVISION AREDS) 14,320-226-200 cwiu-se-grkg cap Take 2 capsules by mouth daily. [...] 06/04/2020 Performed by Keith Trinidad MD at [facility] OR PERCUTANEOUS NEPHROSTOLITHOTOMY/ PYELOSTOLITHOTOMY - 2 CM OR LESS Right 11/12 Performed by Tristan Bowman MD at [facility] OR URETEROSCOPY WITH URETERAL STENT EXCHANGE Right 02/15/2021 Performed by Tristan Bowman MD at [facility] OR PERCUTANEOUS NEPHROSTOLITHOTOMY/ PYELOSTOLITHOTOMY - GREATER THAN 2 CM Left 04/29/2021 Performed by Kvng Rm MD at [facility] OR PERCUTANEOUS PLACEMENT NEPHROSTOMY CATHETER WITH NEPHROSTOGRAM/ URETEROGRAM/ IMAGE-GUIDANCE Left 04/29/2021 Performed by Kvng Rm MD at [facility] OR CYSTOURETHROSCOPY WITH URETEROSCOPY AND/ OR PYELOSCOPY - WITH REMOVAL/ MANIP ULATION CALCULUS Left 04/29/2021 Performed by Kvng Rm MD at [facility] OR Social History Social History Socioeconomic History [...] 0416) Height: 172.7 cm (5' 8") (07/12 114) BP: (70-155)/(43-91) ABP: (84-118)/(38-49) Temp: [36.3 C [...] Screen NEG Electronic Crossmatch YES Unit Number [id number] Blood Component Type RBC,ADSOL,LEUKO REDUCED,2ND CONT. Unit Division 00 Status OF Unit TRANSFUSED ISSUE DATE TIME PRODUCT CODE H2713Z63 BLOOD TYPE O NEG CODING STATUS 9500 BLOOD EXPIRATION DATE Transfusion Status OK TO TRANSFUSE Crossmatch Result COMPATIBLE,ELECTRONIC Unit Number [id number] Blood Component Type RBC,ADSOL,LEUKO REDUCED,2ND CONT. Unit Division 00 Status OF Unit TRANSFUSED ISSUE DATE TIME PRODUCT CODE M8409T14 BLOOD TYPE O NEG CODING STATUS 9500 BLOOD EXPIRATION DATE Transfusion Status OK TO TRANSFUSE Crossmatch Result COMPATIBLE,ELECTRONIC POC BLOOD GAS ARTERIAL Collection Time: 07/12/21 8:50 PM Result Value Ref Range PH-ART-POC 7.39 7.35 - 7.45 HVI9-OKI-QYM 32 (L) 35 - 45 MMHG PO2-ART-POC 103 (H) 80 - 100 MMHG Base Def-ART-POC 6.0 MMOL/L O2 Sat-ART-POC 98.0 95 - 99 % Hsfeotirpfz-SGE-RLB 19.1 (L) 21 - 28 MMOL/L POC [...] Ref Range Units Ordered 1 Unit Number [id number] Blood Component Type CRY 5 POOLED Unit Division 00 Status OF Unit TRANSFUSED ISSUE DATE TIME PRODUCT CODE V5834Q54 BLOOD TYPE O POS CODING STATUS 5100 BLOOD EXPIRATION DATE Transfusion Status OK TO TRANSFUSE PREPARE APHERESIS PLATELETS Collection Time: 07/12/21 10:20 PM Result Value Ref Range Units Ordered 1 Unit Number [id number] Blood Component Type APHERESIS PLT,LEUKO REDUCED, BACTERIAL MONITOR 7D, IRRADIATED,2ND CONT Unit Division 00 Status OF Unit TRANSFUSED ISSUE DATE TIME PRODUCT CODE E2568R26 BLOOD TYPE A NEG CODING STATUS 0600 [...] Ref Range Units Ordered 2 Unit Number [id number] Blood Component Type THAWED PLASMA Unit Division 00 Status OF Unit ISSUED ISSUE DATE TIME PRODUCT CODE A4807K57 BLOOD TYPE B POS CODING STATUS 7299 BLOOD EXPIRATION DATE Transfusion Status OK TO TRANSFUSE Unit Number [id number] Blood Component Type APHERESIS PLASMA THAWED Unit Division 00 Status OF Unit ISSUED ISSUE DATE TIME PRODUCT CODE Z5440M80 BLOOD TYPE B POS CODING STATUS 7299 [...] Sat-Arterial 94.9 (L) 95 - 99 % Gccjseianjj-RCQ-Mtb 23.9 21 - 28 MMOL/L CBC Collection [...] (07/13/21114) POC Glucose (Download): (!) 116 (07/12/212050) IMEDIA ARTIST documented in this encounter OR Notes * Operative Report (Direct Entry) - Kehinde Cao DO - 07/12/2021 12:53 PM MULTIMEDIA ARTIST OPERATIVE REPORT Name: Chemo Jenkins is a 71 y.o. male : 1950 DATE OF OPERATION: 07/12/2021 Surgeon(s) and Role: * Kehinde Cao DO [...] PACU - stable Scott Garcia MD Pager [phone] ATTESTATION I performed this procedure with a resident. and I was present for the entire pro cedure. Staff name: Kehinde Cao DO Date: 07/14/2021 IMEDIA ARTIST documented in this encounter Miscellaneous Notes * Care Plan - Joseph Hawkins RN - 07/17/2021 6:42 PM MULTIMEDIA ARTIST Problem: Skin Integrity Goal: Skin integrity intact [...] 07/17/2021 1840) Cognitive status restored to baseline: Lily patient to reality Promote rest Complete delirium assessment scale Assess patient history Reduce delirium risk Problem: Nutrition Deficit Goal: Adequate nutritional intake Flowsheets (Taken 07/17/2021 1840) Adequate nutritional intake: Promote oral fluid intake Assess dietary preferences IMEDIA ARTIST * Response Teams - Farzana Ambriz RN - 07/14/2021 10:23 AM MULTIMEDIA ARTIST Patient stroke activated for increased right sided weakness, deviation and extin ction. On arrival with neuro team, patient improved from yesterday. Stroke activ ation cancelled per Otf Vines APRN. IMEDIA ARTIST * Acute Stroke Response - Liliana Low RN - 07/13/2021 1:13 PM MULTIMEDIA ARTIST RN Stroke Activation Summary Date of Service: 07/13/2021 Chemo Jenkins is a 71 y.o. male. : 1950 MR N#: [id number] Allergies: Tegaderm, Erythromycin, and Readyprep chg [chlorhexidine gluconate] ASRT Arrival: 1232 Location of Response : 3060 Page Received: 1220 Clinical Presentation: Ataxia, Right [...] obtained by primary team where a left WEIGHT LOSS COUNSELOR infarct was found. Patient had surgery yesterday [...] 06/04/2020 Performed by Keith Trinidad MD at [facility] OR PERCUTANEOUS NEPHROSTOLITHOTOMY/ PYELOSTOLITHOTOMY - 2 CM OR LESS Right 11/12 Performed by Tristan Bowman MD at [facility] OR URETEROSCOPY WITH URETERAL STENT EXCHANGE Right 02/15/2021 Performed by Tristan Bowman MD at [facility] OR PERCUTANEOUS NEPHROSTOLITHOTOMY/ PYELOSTOLITHOTOMY - GREATER THAN 2 CM Left 04/29/2021 Performed by Kvng Rm MD at [facility] OR PERCUTANEOUS PLACEMENT NEPHROSTOMY CATHETER WITH NEPHROSTOGRAM/ URETEROGRAM/ IMAGE-GUIDANCE Left 04/29/2021 Performed by Kvng Rm MD at [facility] OR CYSTOURETHROSCOPY WITH URETEROSCOPY AND/ OR PYELOSCOPY - WITH REMOVAL/ MANIP ULATION CALCULUS Left 04/29/2021 Performed by Kvng Rm MD at [facility] OR Social History Socioeconomic History Marital status: [...] Narrative Not on file Liliana Low RN IMEDIA ARTIST * Acute Stroke Response - Otf Vines APRN-NP - 07/13/2021 1:07 PM MULTIMEDIA ARTIST NAME:Chemo Jenkins :1950 AGE: 71 y.o. ADMISSION [...] a dominant moderate to larg e left WEIGHT LOSS COUNSELOR territory infarct. At that time the stroke team was activated. NIHSS on arrival was 7 for disorientation, R side drift, R homonymous hemianopia and L side extinction deficit. Elevated Creatinine prevented us from getting CTA head and neck. Impression: Likely Subacute ischemic stroke, likely embolic due to multiple vasc ular territory involvement Suspected localization of Stroke Sx: Left WEIGHT LOSS COUNSELOR territory Suspected etiology: Cardio Embolism Pre-event mRS: [...] ASA daily - CBC, BMP routine - PT/OT/FINANCIAL SALES ADVISOR consult eval and treat - Rehab consult for assessment of post stroke care The patient was seen and discussed with Dr. Joshua Vines APRN-NEWSPAPER DISTRIBUTOR SUPERVISOR Vascular Neurology History of Present Ilness History [...] ASRT Arrival: 1232 Location of Response : 0742 Page Received: 1220 CT/CTP/CTA: BP: 108/65 (07/13 1200) Temp: 36.6 [...] language) 2=neither correct 2 1c. 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, teacher drama and release non-paretic hand (other 1 step [...] 06/04/2020 Performed by Keith Trinidad MD at [facility] OR PERCUTANEOUS NEPHROSTOLITHOTOMY/ PYELOSTOLITHOTOMY - 2 CM OR LESS Right 11/12 Performed by Tristan Bowman MD at [facility] OR URETEROSCOPY WITH URETERAL STENT EXCHANGE Right 02/15/2021 Performed by Tristan Bowman MD at [facility] OR PERCUTANEOUS NEPHROSTOLITHOTOMY/ PYELOSTOLITHOTOMY - GREATER THAN 2 CM Left 04/29/2021 Performed by Kvng Rm MD at [facility] OR PERCUTANEOUS PLACEMENT NEPHROSTOMY CATHETER WITH NEPHROSTOGRAM/ URETEROGRAM/ IMAGE-GUIDANCE Left 04/29/2021 Performed by Kvng Rm MD at [facility] OR CYSTOURETHROSCOPY WITH URETEROSCOPY AND/ OR PYELOSCOPY - WITH REMOVAL/ MANIP ULATION CALCULUS Left 04/29/2021 Performed by Kvng Rm MD at [facility] OR History reviewed. No pertinent family history. [...] (Download): (!) 116 (07/12/212050) Pertinent radiology reviewed. IMEDIA ARTIST Associated attestation - Angela Lewis MD - 07/14/2021 10:35 AM MULTIMEDIA ARTIST ATTESTATION I personally interviewed and examined the patient. I have reviewed the history, physical, impression and plan outlined by the Nurse Practitioner. The patient was stroke activated for visual alteration. CT head shows completed left wood heel back liner stroke, smaller cerebellar strokes. On examination there is lethargy, right homonomous hemianopia, drift RUE and RLE . My impression is embolic strokes. Remote hx of a fib but none on tele My plan is MRI head, mra head, carotid dopplers, continue aspirin. Staff name: Angela Lewis MD Date: 07/14/2021 * Response Teams - Dacia Yusuf RN - 07/12/2021 8:52 PM MULTIMEDIA ARTIST Rapid Response Team Progress Note Date: 07/12/2021 Time: 9:22 PM Patient: Chemo Jenkins Attending: Kehinde Cao DO Service: Surgery-Oncology - [id number] Admission Date: 07/12/2021 LOS: 0 days A Code/Rapid Response Timeline Event Report has been created for this patient on 07/12 at 2033 for AMS. ABG & labs obtained, Narcan administered. LR bolus ordered and administered. Surgery team at bedside for evaluation.VSS stabilized. BUTTON BUTTONHOLE MARKER dismissed. BUTTON BUTTONHOLE MARKER to follow up per protocol. Dacia Yusuf RN IMEDIA ARTIST * Care Plan - Alec Franklin RT - 07/12/2021 6:05 PM MULTIMEDIA ARTIST RT Adult Assessment Note NAME:Chemo Jenkins :1950 [...] Sounds: Clear (Implies normal) Respiratory Effort: Non-Labored IMEDIA ARTIST documented in this encounter Plan of Treatment Date/Time Name Type Priority Associated Diag noses 07/12/2021 2:03 PM MULTIMEDIA ARTIST POC ANES US GUIDED NERVE Imaging Routine BLOCK 07/12/2021 2:05 PM MULTIMEDIA ARTIST POC ANES US GUIDED NERVE Imaging Routine [...] track (07/12/2021 Yes April Marie, 6:07 PM MULTIMEDIA ARTIST) RN Note: "To heal and recover, and get stronger, be as healthy as I can" documented as of this encounter Procedures Comments Procedure Name Priority Date/Time Associated Diag nosis HC CBC,AUTOMATED Routine 07/20/2021 8:17 AM MULTIMEDIA ARTIST HC PHOSPHOROUS, SERUM Routine 07/19/2021 2:42 AM MULTIMEDIA ARTIST HC MAGNESIUM Routine 07/19/2021 2:42 AM MULTIMEDIA ARTIST HC BASIC METABOLIC PANEL Routine 07/19/2021 2:42 AM MULTIMEDIA ARTIST HC PHOSPHOROUS, SERUM Routine 07/17/2021 3:35 AM MULTIMEDIA ARTIST HC MAGNESIUM Routine 07/17/2021 3:35 AM MULTIMEDIA ARTIST HC BASIC METABOLIC PANEL Routine 07/17/2021 3:35 AM MULTIMEDIA ARTIST HC CBC,AUTOMATED Routine 07/16/2021 4:40 AM MULTIMEDIA ARTIST HC PHOSPHOROUS, SERUM Routine 07/16/2021 4:40 AM MULTIMEDIA ARTIST HC MAGNESIUM Routine 07/16/2021 4:40 AM MULTIMEDIA ARTIST HC BASIC METABOLIC PANEL Routine 07/16/2021 4:40 AM MULTIMEDIA ARTIST PV CAROTID ARTERY DUPLEX Routine 07/15/2021 SCAN 9:04 AM MULTIMEDIA ARTIST HC CBC,AUTOMATED Routine 07/15/2021 2:55 AM MULTIMEDIA ARTIST HC PHOSPHOROUS, SERUM Routine 07/15/2021 2:55 AM MULTIMEDIA ARTIST HC MAGNESIUM Routine 07/15/2021 2:55 AM MULTIMEDIA ARTIST HC BASIC METABOLIC PANEL Routine 07/15/2021 2:55 AM MULTIMEDIA ARTIST POC GLUCOSE 07/14/2021 11:04 AM MULTIMEDIA ARTIST HC HEMOGLOBIN A1C STAT 07/14/2021 6:45 AM MULTIMEDIA ARTIST HC STAT 07/14/2021 LIPID-5:CHOL/TRG/HDL/LDL+ 6:45 AM MULTIMEDIA ARTIST VLDL HC TROPONIN-I Routine 07/14/2021 5:56 AM MULTIMEDIA ARTIST HC CBC,AUTOMATED Routine 07/14/2021 3:11 AM MULTIMEDIA ARTIST HC PHOSPHOROUS, SERUM Routine 07/14/2021 3:11 AM MULTIMEDIA ARTIST HC MAGNESIUM Routine 07/14/2021 3:11 AM MULTIMEDIA ARTIST HC BASIC METABOLIC PANEL Routine 07/14/2021 3:11 AM MULTIMEDIA ARTIST TRANSFUSE RBC'S STAT 07/14/2021 12:45 AM MULTIMEDIA ARTIST TROPONIN-I Routine 07/14/2021 12:20 AM MULTIMEDIA ARTIST MRA HEAD WO CONTRAST STAT 07/13/2021 10:54 PM MULTIMEDIA ARTIST MRI HEAD WO CONTRAST STAT 07/13/2021 10:35 PM MULTIMEDIA ARTIST HC CBC,AUTOMATED STAT 07/13/2021 9:21 PM MULTIMEDIA ARTIST HC PHOSPHOROUS, SERUM STAT 07/13/2021 9:21 PM MULTIMEDIA ARTIST HC MAGNESIUM STAT 07/13/2021 9:21 PM MULTIMEDIA ARTIST HC LACTIC ACID(LACTATE) STAT 07/13/2021 9:21 PM MULTIMEDIA ARTIST HC BLOOD STAT 07/13/2021 GASES;(CALCULATED 02) 9:21 PM MULTIMEDIA ARTIST HC CALCIUM IONIZED STAT 07/13/2021 9:21 PM MULTIMEDIA ARTIST BASIC METABOLIC PANEL STAT 07/13/2021 9:21 PM MULTIMEDIA ARTIST TROPONIN-I 07/13/2021 6:01 PM MULTIMEDIA ARTIST HC TROPONIN-I Routine 07/13/2021 12:[address] HEAD WO CONTRAST STAT 07/13/2021 11:54 AM MULTIMEDIA ARTIST 2D + DOPPLER ECHO W/ GILDA 07/13/2021 CONTRAST 8:00 AM MULTIMEDIA ARTIST CHEST SINGLE VIEW GILDA 07/13/2021 7:13 AM MULTIMEDIA ARTIST TROPONIN-I Routine 07/13/2021 5:52 AM MULTIMEDIA ARTIST CHEST SINGLE VIEW STAT 07/13/2021 3:33 AM MULTIMEDIA ARTIST HC AMMONIA Routine 07/13/2021 3:00 AM MULTIMEDIA ARTIST CBC Routine 07/13/2021 2:42 AM MULTIMEDIA ARTIST HC BLOOD STAT 07/13/2021 GASES;(CALCULATED 02) 2:32 AM MULTIMEDIA ARTIST TRANSFUSE PLASMA (FFP) STAT 07/13/2021 2:18 AM MULTIMEDIA ARTIST HC TEG W KAOLIN R Routine 07/13/2021 ACTIVATED CLOTTING TIME 1:15 AM MULTIMEDIA ARTIST HC TROPONIN-I Add on 07/13/2021 1:15 AM MULTIMEDIA ARTIST HC CBC,AUTOMATED Routine 07/13/2021 1:15 AM MULTIMEDIA ARTIST HC PHOSPHOROUS, SERUM Routine 07/13/2021 1:15 AM MULTIMEDIA ARTIST HC MAGNESIUM Routine 07/13/2021 1:15 AM MULTIMEDIA ARTIST HC LACTIC ACID(LACTATE) GILDA 07/13/2021 1:15 AM MULTIMEDIA ARTIST HC CALCIUM IONIZED Routine 07/13/2021 1:15 AM MULTIMEDIA ARTIST HC BASIC METABOLIC PANEL Routine 07/13/2021 1:15 AM MULTIMEDIA ARTIST TRANSFUSE PLASMA (FFP) STAT 07/13/2021 12:23 AM MULTIMEDIA ARTIST PREPARE PLASMA (FFP) STAT 07/13/2021 12:11 AM MULTIMEDIA ARTIST TRANSFUSE CRYOPRECIPITATE STAT 07/12/2021 11:18 PM MULTIMEDIA ARTIST TRANSFUSE APHERESIS STAT 07/12/2021 PLATELETS 11:17 PM MULTIMEDIA ARTIST TRANSFUSE RBC'S STAT 07/12/2021 11:04 PM MULTIMEDIA ARTIST CBC STAT 07/12/2021 10:50 PM MULTIMEDIA ARTIST PREPARE APHERESIS Routine 07/12/2021 PLATELETS 10:20 PM MULTIMEDIA ARTIST PREPARE CRYOPRECIPITATE STAT 07/12/2021 9:55 PM MULTIMEDIA ARTIST TRANSFUSE RBC'S STAT 07/12/2021 9:40 PM MULTIMEDIA ARTIST HC TEG W KAOLIN R STAT 07/12/2021 ACTIVATED CLOTTING TIME 9:15 PM MULTIMEDIA ARTIST HC CBC,AUTOMATED STAT 07/12/2021 9:15 PM MULTIMEDIA ARTIST HC PHOSPHOROUS, SERUM STAT 07/12/2021 9:15 PM MULTIMEDIA ARTIST HC MAGNESIUM STAT 07/12/2021 9:15 PM MULTIMEDIA ARTIST HC CALCIUM IONIZED STAT 07/12/2021 9:15 PM MULTIMEDIA ARTIST HC COMPREHENSIVE STAT 07/12/2021 METABOLIC PANEL 9:15 PM MULTIMEDIA ARTIST POC GLUCOSE 07/12/2021 8:51 PM MULTIMEDIA ARTIST HC BLOOD GAS, POC 07/12/2021 8:50 PM MULTIMEDIA ARTIST HC SODIUM, POC 07/12/2021 8:50 PM MULTIMEDIA ARTIST HC POTASSIUM, POC 07/12/2021 8:50 PM MULTIMEDIA ARTIST HC HEMATOCRIT POC 07/12/2021 8:50 PM MULTIMEDIA ARTIST COLOSTOMY/ SKIN LEVEL 07/12/2021 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, unspecified site (HCC) HC ABO GROUP STAT 07/12/2021 11:45 AM MULTIMEDIA ARTIST TELEMETRY STRIPS-SCAN 07/12/2021 12:00 AM MULTIMEDIA ARTIST TELEMETRY STRIPS-SCAN 07/12/2021 12:00 AM MULTIMEDIA ARTIST TELEMETRY STRIPS-SCAN 07/12/2021 12:00 AM MULTIMEDIA ARTIST ECG-SCAN 07/12/2021 12:00 AM MULTIMEDIA ARTIST ECG-SCAN 07/12/2021 12:00 AM MULTIMEDIA ARTIST documented in this encounter Results * (ABNORMAL) CBC (07/20/2021 8:17 AM MULTIMEDIA ARTIST) White Blood 11.0 4.5 - 11.0 K/UL [...] LAB Specimen Blood (substance) Performing Organization Address [facility]/ZIP Code P dg Number [facility] [address] [place] [address] * PHOSPHORUS (07/19/2021 2:42 AM MULTIMEDIA ARTIST) Phosphorus 3.4 2.0 - 4.5 MG/DL [facility] Specimen Blood (substance) Performing Organization Address [facility] P gd Number [facility] [address] [place] [address] * MAGNESIUM (07/19/2021 2:42 AM MULTIMEDIA ARTIST) Magnesium 1.9 1.6 - 2.6 mg/dL [facility] Specimen Blood (substance) Performing Organization Address [facility] Code P dg Number [facility] [address] [place] [phone] * (ABNORMAL) BASIC METABOLIC PANEL (07/19/2021 2:42 AM MULTIMEDIA ARTIST) Sodium 137 137 - 147 MMOL/L [facility] [...] equation Specimen Blood (substance) Performing Organization Address [facility] Code P dg Number [facility] [address] [place] [address] * PHOSPHORUS (07/17/2021 3:35 AM MULTIMEDIA ARTIST) Phosphorus 2.0 2.0 - 4.5 MG/DL [facility] Specimen Blood (substance) Performing Organization Address [facility] P dg Number [facility] [address] [place] [address] * MAGNESIUM (07/17/2021 3:35 AM MULTIMEDIA ARTIST) Magnesium 1.7 1.6 - 2.6 mg/dL [facility] Specimen Blood (substance) Performing Organization Address [facility]/ZIP Code P dg Number [facility] [address] [place] [address] * (ABNORMAL) BASIC METABOLIC PANEL (07/17/2021 3:35 AM MULTIMEDIA ARTIST) Sodium 133 (L) 137 - 147 MMOL/L [...] equation Specimen Blood (substance) Performing Organization Address [facility] [facility] Code P dg Number [facility] [address] [place] [address] * (ABNORMAL) PHOSPHORUS (07/16/2021 4:40 AM MULTIMEDIA ARTIST) Phosphorus 1.7 (L) 2.0 - 4.5 MG/DL [facility] Specimen Blood (substance) Performing Organization Address [facility] P dg Number [facility] [address] [place] [address] * MAGNESIUM (07/16/2021 4:40 AM MULTIMEDIA ARTIST) Magnesium 1.9 1.6 - 2.6 mg/dL [facility] Specimen Blood (substance) Performing Organization Address [facility] P dg Number [facility] [address] [place] [address] * (ABNORMAL) BASIC METABOLIC PANEL (07/16/2021 4:40 AM MULTIMEDIA ARTIST) Sodium 136 (L) 137 - 147 MMOL/L [...] equation Specimen Blood (substance) Performing Organization Address [facility] P dg Number [facility] [address] [place] [phone] * (ABNORMAL) CBC (07/16/2021 4:40 AM MULTIMEDIA ARTIST) White Blood 9.1 4.5 - 11.0 K/UL [...] Code P dg Number MAIN LAB [address] [place] [address] * PV CAROTID ARTERY DUPLEX SCAN (07/15/2021 9:04 AM MULTIMEDIA ARTIST) LEFT CCA DIST 0.83 m/s OTHER OUTSIDE [...] ECHO PV Leisa Frias, Student OTHER OUTSIDE [facility] Cardiology Sherri Epiq OTHER OUTSIDE Ultrasound LAB Machine RIGHT ICA/CCA 0.95 m/s OTHER OUTSIDE SYS LAB LEFT ICA/CCA 0.92 m/s OTHER OUTSIDE SYS LAB Modality Anatomical Region Laterality Ultrasound Specimen Narrative OTHER OUTSIDE LAB - 07/15/2021 10:14 AM MULTIMEDIA ARTIST 1. Minimal atheromatous changes visualized in bilateral common and internal carotid arteries without hemodynamically significant (>50%) stenosis. 2. There is normal antegrade flow in tahmina ateral vertebral arteries 3. No evidence of proximal subclavian st enosis bilaterally No prior studies available for comparison. Performing Organization Address City/State/ZIP Code P dg Number OTHER OUTSIDE LAB * PHOSPHORUS (07/15/2021 2:55 AM MULTIMEDIA ARTIST) Phosphorus 2.0 2.0 - 4.5 MG/DL [facility] Specimen Blood (substance) Performing Organization Address [facility] P dg Number [facility] [address] [place] [address] * MAGNESIUM (07/15/2021 2:55 AM MULTIMEDIA ARTIST) Magnesium 2.3 1.6 - 2.6 mg/dL [facility] Specimen Blood (substance) Performing Organization Address [facility] P dg Number [facility] [address] [place] [address] * (ABNORMAL) BASIC METABOLIC PANEL (07/15/2021 2:55 AM MULTIMEDIA ARTIST) Sodium 140 137 - 147 MMOL/L [facility] [...] equation Specimen Blood (substance) Performing Organization Address [facility] Code P dg Number [facility] [address] [place] [phone] * (ABNORMAL) CBC (07/15/2021 2:55 AM MULTIMEDIA ARTIST) White Blood 9.5 4.5 - 11.0 K/UL [...] LAB Specimen Blood (substance) Performing Organization Address [facility] P dg Number [facility] [address] [place] [address] * (ABNORMAL) POC GLUCOSE (07/14/2021 11:04 AM MULTIMEDIA ARTIST) Glucose, POC 118 (H) 70 - 100 MG/DL MAIN LAB Specimen Performing Organization Address [facility] P dg Number [facility] [address] [place] [address] * HEMOGLOBIN A1C (07/14/2021 6:45 AM MULTIMEDIA ARTIST) Hemoglobin A1C 5.6 4.0 - 6.0 % [facility] Comment: The ADA recommends that most patients with type 1 and type 2 diabetes maintain an A1c level <7%. Specimen Blood (substance) Performing Organization Address City/State/ZIP Code P dg Number [facility] [address] [place] [address] * (ABNORMAL) LIPID PROFILE (07/14/2021 6:45 AM MULTIMEDIA ARTIST) Cholesterol 87 <200 MG/DL [facility] [...] mg/dL. Specimen Blood (substance) Performing Organization Address [facility] P dg Number MAIN LAB [address] [place] [address] * (ABNORMAL) TROPONIN-I (07/14/2021 5:56 AM MULTIMEDIA ARTIST) Troponin-I 0.60 (H) 0.0 - 0.05 NG/ML [facility] Specimen Blood (substance) Performing Organization Address [facility]/ZIP Code P dg Number MAIN LAB [address] [place] [address] * PHOSPHORUS (07/14/2021 3:11 AM MULTIMEDIA ARTIST) Phosphorus 3.0 2.0 - 4.5 MG/DL [facility] Specimen Blood (substance) Performing Organization Address [facility] P dg Number [facility] [address] [place] [address] * MAGNESIUM (07/14/2021 3:11 AM MULTIMEDIA ARTIST) Magnesium 2.5 1.6 - 2.6 mg/dL [facility] Specimen Blood (substance) Performing Organization Address [facility]/[place] [facility] [place] dg Number [facility] [address] [place] [address] * (ABNORMAL) BASIC METABOLIC PANEL (07/14/2021 3:11 AM MULTIMEDIA ARTIST) Sodium 139 137 - 147 MMOL/L K[facility] [...] equation Specimen Blood (substance) Performing Organization Address [facility] P dg Number [facility] [address] [place] [address] * (ABNORMAL) CBC (07/14/2021 3:11 AM MULTIMEDIA ARTIST) White Blood 10.6 4.5 - 11.0 K/UL [...] LAB Specimen Blood (substance) Performing Organization Address [facility] P dg Number [facility] [address] [place] [address] * TRANSFUSE RBC'S (07/14/2021 2:52 AM MULTIMEDIA ARTIST) Specimen Blood (substance) * TRANSFUSE RBC'S (07/14/2021 2:52 AM MULTIMEDIA ARTIST) Specimen Blood (substance) * (ABNORMAL) TROPONIN-I (07/14/2021 12:20 AM MULTIMEDIA ARTIST) Troponin-I 0.73 (H) 0.0 - 0.05 NG/ML [facility] Specimen Blood (substance) Performing Organization Address [facility] Code P dg Number [facility] [address] [place] [address] * MRA HEAD WO CONTRAST (07/13/2021 10:54 PM MULTIMEDIA ARTIST) Modality Anatomical Region Laterality Magnetic Resonance Head Specimen Addenda Addendum by Kehinde Parks MD on 07/14/2021 4:55 AM MULTIMEDIA ARTIST Finalized by Kehinde Parks M.D. on 07/14/2021 [...] [facility] RESULTS - 07/14/2021 12:32 AM MULTIMEDIA ARTIST MR brain: 1. Redemonstration of recent multifoca l cerebral and cerebellar infarcts with a dominant large left WEIGHT LOSS COUNSELOR territory infarct. This appears represent a combination [...] MRA head: 1. Occlusion of the left WEIGHT LOSS COUNSELOR at the leve l of the mid to distal P2 segment (corresponding to the large left WEIGHT LOSS COUNSELOR territory infarct). 2. Otherwise patent major intracranial a rteries without focal stenosis. By my electronic signature, I attest that I have personally reviewed the images for this examination and formulated the interpretations and opinions expressed in this report Narrative [facility] RESULTS - 07/14/2021 12:32 AM MULTIMEDIA ARTIST EXAM: MRI AND MRA BRAIN HISTORY: left WEIGHT LOSS COUNSELOR infarct, TECHNIQUE: Multiplanar and multisequence MR imaging of the head was performed. This was done without contrast. 3D zujj-ox-obcois images of [place] was performed without contrast. MRA [...] effect. The major vascular flow-voids of the [place] and dural venous sinuses are unremarkable. Redemonstration of recent large left WEIGHT LOSS COUNSELOR territory infarct. There are additional multifocal smaller [...] occlusion/loss of flow void within the left WEIGHT LOSS COUNSELOR at the level of the mid to distal P2 segment. Portions of the left P3 and P4 segments also show absent flow voids. The anterior, middle, and right posterior cerebral arteries are patent without focal narrowing. No aneurysm or arteriovenous malformation is identified. Procedure Note Kehinde Parks MD - 07/14/2021 EXAM: MRI AND MRA BRAIN HISTORY: left WEIGHT LOSS COUNSELOR infarct, TECHNIQUE: Multiplanar and multisequence MR imaging of the head was performed. This was done without contrast. 3D ixxe-jy-ivcfml images of [place] was performed without contrast. MRA [...] effect. The major vascular flow-voids of [place] and dural venous sinuses are unremarkable. Redemonstration of recent large left WEIGHT LOSS COUNSELOR territory infarct. There are additional multifocal smaller [...] occlusion/loss of flow void within the left WEIGHT LOSS COUNSELOR at the level of the mid to distal P2 segment. Portions of the left P3 and P4 segments also show absent flow voids. The anterior, middle, and right posterior cerebral arteries are patent without focal narrowing. No aneurysm or arteriovenous malformation is identified. IMPRESSION MR brain: 1. Redemonstration of recent multifocal cerebral and cerebellar infarcts with a dominant large left WEIGHT LOSS COUNSELOR territory infarct. This appears represent a combination [...] MRA head: 1. Occlusion of the left WEIGHT LOSS COUNSELOR at the leve l of the mid to distal P2 segment (corresponding to the large left WEIGHT LOSS COUNSELOR territory infarct). 2. Otherwise patent major intracranial a rteries without focal stenosis. By my electronic signature, I attest that I have personally reviewed the images for this examination and formulated the interpretations and opinions expressed in this report Performing Organization Address City/State/ZIP Code P dg Number [facility] RESULTS * MRI HEAD WO CONTRAST (07/13/2021 10:35 PM MULTIMEDIA ARTIST) Modality Anatomical Region Laterality Magnetic Resonance Head Specimen Addenda Addendum by Kehinde Parks MD on 07/14/2021 4:55 AM MULTIMEDIA ARTIST Finalized by Kehinde Parks M.D. on 07/14/2021 [...] [facility] RESULTS - 07/14/2021 12:32 AM MULTIMEDIA ARTIST MR brain: 1. Redemonstration of recent multifoca l cerebral and cerebellar infarcts with a dominant large left WEIGHT LOSS COUNSELOR territory infarct. This appears represent a combination [...] MRA head: 1. Occlusion of the left WEIGHT LOSS COUNSELOR at the leve l of the mid to distal P2 segment (corresponding to the large left WEIGHT LOSS COUNSELOR territory infarct). 2. Otherwise patent major intracranial a rteries without focal stenosis. By my electronic signature, I attest that I have personally reviewed the images for this examination and formulated the interpretations and opinions expressed in this report Narrative [facility] RESULTS - 07/14/2021 12:32 AM MULTIMEDIA ARTIST EXAM: MRI AND MRA BRAIN HISTORY: left WEIGHT LOSS COUNSELOR infarct, TECHNIQUE: Multiplanar and multisequence MR imaging of the head was performed. This was done without contrast. 3D pznl-ti-hykgoo images of [place] was performed without contrast. MRA [...] effect. The major vascular flow-voids of the [place] and dural venous sinuses are unremarkable. Redemonstration of recent large left WEIGHT LOSS COUNSELOR territory infarct. There are additional multifocal smaller [...] occlusion/loss of flow void within the left WEIGHT LOSS COUNSELOR at the level of the mid to distal P2 segment. Portions of the left P3 and P4 segments also show absent flow voids. The anterior, middle, and right posterior cerebral arteries are patent without focal narrowing. No aneurysm or arteriovenous malformation is identified. Procedure Note Kehinde Parks MD - 07/14/2021 EXAM: MRI AND MRA BRAIN HISTORY: left WEIGHT LOSS COUNSELOR infarct, TECHNIQUE: Multiplanar and multisequence MR imaging of the head was performed. This was done without contrast. 3D ihte-ei-ftitxs images of [place] was performed without contrast. MRA [...] effect. The major vascular flow-voids of [place] and dural venous sinuses are unremarkable. Redemonstration of recent large left WEIGHT LOSS COUNSELOR territory infarct. There are additional multifocal smaller [...] occlusion/loss of flow void within the left WEIGHT LOSS COUNSELOR at the level of the mid to distal P2 segment. Portions of the left P3 and P4 segments also show absent flow voids. The anterior, middle, and right posterior cerebral arteries are patent without focal narrowing. No aneurysm or arteriovenous malformation is identified. IMPRESSION MR brain: 1. Redemonstration of recent multifocal cerebral and cerebellar infarcts with a dominant large left WEIGHT LOSS COUNSELOR territory infarct. This appears represent a combination [...] MRA head: 1. Occlusion of the left WEIGHT LOSS COUNSELOR at the leve l of the mid to distal P2 segment (corresponding to the large left WEIGHT LOSS COUNSELOR territory infarct). 2. Otherwise patent major intracranial a rteries without focal stenosis. By my electronic signature, I attest that I have personally reviewed the images for this examination and formulated the interpretations and opinions expressed in this report Performing Organization Address [facility] P dg Number [facility] RES[facility] * BLOOD GASES, ARTERIAL (07/13/2021 9:21 PM MULTIMEDIA ARTIST) pH-Arterial 7.43 7.35 - 7.45 [facility] pCO2-Arterial 40 35 - 45 MMHG [facility] pO2-Arterial 89 80 - 100 MMHG [facility] Base 2.1 MMOL/L [facility] Excess-Arterial O2 Sat-Arterial 97.3 95 - 99 % [facility] Bicarbonate-ART 26.3 21 - 28 MMOL/L [facility] -Daniel Specimen Blood, arterial - Blood (substance) Performing Organization Address [facility] P dg Number [facility] [address] [place] [address] * LACTIC ACID(LACTATE) (07/13/2021 9:21 PM MULTIMEDIA ARTIST) Lactic Acid 0.9 0.5 - 2.0 MMOL/L [facility] Specimen Blood (substance) Performing Organization Address [facility] P dg Number [facility] [address] [place] [address] * IONIZED CALCIUM (07/13/2021 9:21 PM MULTIMEDIA ARTIST) Ionized Calcium 1.17 1.0 - 1.3 MMOL/L [facility] Specimen Blood (substance) Performing Organization Address [facility] P dg Number [facility] [address] [place] [address] * PHOSPHORUS (07/13/2021 9:21 PM MULTIMEDIA ARTIST) Phosphorus 3.1 2.0 - 4.5 MG/DL [facility] Specimen Blood (substance) Performing Organization Address [facility] P dg Number [facility] [address] [place] [address] * MAGNESIUM (07/13/2021 9:21 PM MULTIMEDIA ARTIST) Magnesium 2.5 1.6 - 2.6 mg/dL [facility] Specimen Blood (substance) Performing Organization Address City/[facility] P dg Number [facility] [address] [place] [address] * (ABNORMAL) BASIC METABOLIC PANEL (07/13/2021 9:21 PM MULTIMEDIA ARTIST) Sodium 139 137 - 147 MMOL/L [facility] [...] equation Specimen Blood (substance) Performing Organization Address [facility] P dg Number [facility] [address] [place] [address] * (ABNORMAL) CBC (07/13/2021 9:21 PM MULTIMEDIA ARTIST) White Blood 10.4 4.5 - 11.0 K/UL [...] LAB Specimen Blood (substance) Performing Organization Address [facility] Code P dg Number [facility] [address] [place] [address] * (ABNORMAL) TROPONIN-I (07/13/2021 6:01 PM MULTIMEDIA ARTIST) Troponin-I 0.84 (H) 0.0 - 0.05 NG/ML [facility] Specimen Performing Organization Address City/State/ZIP Code P dg Number [facility] [address] [place] [address] * (ABNORMAL) TROPONIN-I (07/13/2021 12:17 PM MULTIMEDIA ARTIST) Troponin-I 0.67 (H) 0.0 - 0.05 NG/ML [facility] Specimen Blood (substance) Performing Organization Address City/State/ZIP Code P dg Number [facility] [address] [place] [address] * CT HEAD WO CONTRAST (07/13/2021 11:54 AM MULTIMEDIA ARTIST) Modality Anatomical Region Laterality Computed Tomography Head Specimen Impressions [facility] RESULTS - 07/13/2021 12:16 PM MULTIMEDIA ARTIST 1. Multifocal acute to subacute appear ing bilateral cerebral and cerebellar infarcts (presumably embolic in etiology) with a dominant moderate to large left WEIGHT LOSS COUNSELOR territory infarct. 2. No evidence of hemorrhagic conversi on, midline shift, or herniation. Findings were discussed with Dr. Garcia by myself via telephone at 12:13 PM on 07/13/2021. Finalized by Dwaine Vo DO on 07/13/2021 12:16 PM. Dictated by Dwaine Vo DO on 07/13/2021 12:04 PM. Narrative [facility] RESULTS - 07/13/2021 12:16 PM MULTIMEDIA ARTIST EXAM: CT HEAD HISTORY: Rule out stroke, visual difficulties. TECHNIQUE: Multiple contiguous axial images were obtained of the brain without intravenous contrast. COMPARISON: None. FINDINGS: Moderate to large focal area of parenchymal hypodensity, pardo-white matter dedifferentiation, and sulcal compression in the left posterior mesial temporal- occipital WEIGHT LOSS COUNSELOR territory with additional smaller foci of parenchymal hypodensity throughout the bilateral cerebral hemispheres (notably the right caudate, left frontal and parietal cortices, and posterior right occipital lobe), compatible with acute to subacute infarcts. There are also several small age-indeterminate bilateral cerebellar infarcts, the majority of which appear recent. Localize cerebral mass effect associated with the dominant left WEIGHT LOSS COUNSELOR territory infarct. No evidence of acute intracranial [...] in the left posterior mesial temporal- occipital WEIGHT LOSS COUNSELOR territory with additional smaller foci of parenchymal hypodensity throughout the bilateral cerebral hemispheres (notably the right caudate, left frontal and parietal cortices, and posterior right occipital lobe), compatible with acute to subacute infarcts. There are also several small age-indeterminate bilateral cerebellar infarcts, the majority of which appear recent. Localize cerebral mass effect associated with the dominant left WEIGHT LOSS COUNSELOR territory infarct. No evidence of acute intracranial [...] with a dominant moderate to large left WEIGHT LOSS COUNSELOR territory infarct. 2. No evidence of hemorrhagic [...] DOPPLER ECHO W/ CONTRAST (07/13/2021 8:00 AM MULTIMEDIA ARTIST) IVS 0.85 0.6 - 1.0 cm OTHER [...] 34 OTHER OUTSIDE Index LAB Cardiology Siemens [id number] OTHER OUTSIDE Ultrasound LAB Machine Left Ventricle [...] OTHER OUTSIDE LAB - 07/13/2021 8:28 AM MULTIMEDIA ARTIST Left Ventricle: The left ventricular size is [...] * CHEST SINGLE VIEW (07/13/2021 7:13 AM MULTIMEDIA ARTIST) Modality Anatomical Region Laterality Computed Radiography Chest Specimen Impressions [facility] RESULTS - 07/13/2021 9:23 AM MULTIMEDIA ARTIST 1. Persistent tiny lucency within the ri ght lung apex that is suggestive of a tiny pneumothorax. Follow-up inspiration and expiration chest x-ray 2. Unchanged small right pleural effusio n and right lung base consolidation. Finalized by Bernard Sheikh M.D. on 07/13/2021 9:23 AM. Dictated by Bernard Sheikh M.D. on 07/13/2021 9:18 AM. Narrative [facility] RESULTS - 07/13/2021 9:23 AM MULTIMEDIA ARTIST CHEST SINGLE VIEW Clinical Indication: R/o PTX. [...] RESULTS * (ABNORMAL) TROPONIN-I (07/13/2021 5:52 AM MULTIMEDIA ARTIST) Troponin-I 0.49 (H) 0.0 - 0.05 NG/ML [facility] Specimen Blood (substance) Performing Organization Address City/State/ZIP Code P dg Number MAIN LAB [address] [place] [address] * CHEST SINGLE VIEW (07/13/2021 3:33 AM MULTIMEDIA ARTIST) Modality Anatomical Region Laterality Computed Radiography Chest Specimen Addenda Addendum by Kehinde Parks MD on 07/13/2021 5:18 AM MULTIMEDIA ARTIST Finalized by Kehinde Parks M.D. on 07/13/2021 [...] [facility] RESULTS - 07/13/2021 4:25 AM MULTIMEDIA ARTIST 1. Mildly low right lung volume with [...] [facility] RESULTS - 07/13/2021 4:25 AM MULTIMEDIA ARTIST CHEST SINGLE VIEW INDICATION: Altered mental status. [...] * TRANSFUSE PLASMA (FFP) (07/13/2021 3:12 AM MULTIMEDIA ARTIST) * TRANSFUSE PLASMA (FFP) (07/13/2021 3:12 AM MULTIMEDIA ARTIST) * AMMONIA (07/13/2021 3:00 AM MULTIMEDIA ARTIST) Ammonia 34 9 - 35 MCMOL/L [facility] Specimen Blood (substance) Performing Organization Address City/State/ZIP Code P dg Number [facility] [address] [place] [address] * (ABNORMAL) CBC (07/13/2021 2:42 AM MULTIMEDIA ARTIST) White Blood 16.1 (H) 4.5 - 11.0 [...] LAB Specimen Blood (substance) Performing Organization Address [facility] P dg Number [facility] [address] [place] [phone] * (ABNORMAL) BLOOD GASES, ARTERIAL (07/13/2021 2:32 AM MULTIMEDIA ARTIST) pH-Arterial 7.40 7.35 - 7.45 MAIN LAB pCO2-Arterial 38 35 - 45 MMHG MAIN LAB pO2-Arterial 72 (L) 80 - 100 MMHG [facility] Base 0.6 MMOL/L MAIN LAB Deficit-Arteria l O2 Sat-Arterial 94.9 (L) 95 - 99 % [facility] Bicarbonate-ART 23.9 21 - 28 MMOL/L MAIN LAB -Daniel Specimen Blood, arterial - Blood (substance) Performing Organization Address [facility] P dg Number [facility] [address] [place] [address] * (ABNORMAL) TROPONIN-I (07/13/2021 1:15 AM MULTIMEDIA ARTIST) Troponin-I 0.37 (H) 0.0 - 0.05 NG/ML MAIN LAB Specimen Performing Organization Address [facility] P dg Number [facility] [address] [place] [address] * LACTIC ACID(LACTATE) (07/13/2021 1:15 AM MULTIMEDIA ARTIST) Lactic Acid 1.3 0.5 - 2.0 MMOL/L MAIN LAB Specimen Blood (substance) Performing Organization Address [facility] P dg Number [facility] [address] [place] [phone] * (ABNORMAL) PHOSPHORUS (07/13/2021 1:15 AM MULTIMEDIA ARTIST) Phosphorus 5.7 (H) 2.0 - 4.5 MG/DL [facility] Specimen Blood (substance) Performing Organization Address [facility]/ZIP Code P dg Number [facility] [address] [place] [address] * MAGNESIUM (07/13/2021 1:15 AM MULTIMEDIA ARTIST) Magnesium 2.5 1.6 - 2.6 mg/dL [facility] Specimen Blood (substance) Performing Organization Address [facility] P dg Number [facility] [address] [place] [phone] * (ABNORMAL) CBC (07/13/2021 1:15 AM MULTIMEDIA ARTIST) White Blood 18.3 (H) 4.5 - 11.0 [...] LAB Specimen Blood (substance) Performing Organization Address [facility] P dg Number [facility] [address] [place] [address] * (ABNORMAL) BASIC METABOLIC PANEL (07/13/2021 1:15 AM MULTIMEDIA ARTIST) Sodium 141 137 - 147 MMOL/L K[facility] [...] equation Specimen Blood (substance) Performing Organization Address [facility]/ZIP Code P dg Number [facility] [address] [place] [address] * TEG WITH KAOLIN (07/13/2021 1:15 AM MULTIMEDIA ARTIST) MA Kaolin 60.6 >49.9 MM REFERENCE LAB R Kaolin 3.1 <9.1 MIN REFERENCE LAB RK Kaolin 4.5 <12.1 MIN REFERENCE LAB K Kaolin 1.4 <3.1 MIN REFERENCE LAB Angle Kaolin 70.2 >54.9 DEG REFERENCE LAB Lysis30 0.0 <8.1 % REFERENCE LAB Specimen Blood (substance) Performing Organization Address [facility] P dg Number REFERENCE LAB REFERENCE LAB See results for address. * IONIZED CALCIUM (07/13/2021 1:15 AM MULTIMEDIA ARTIST) Ionized Calcium 1.09 1.0 - 1.3 MMOL/L [facility] Specimen Blood (substance) Performing Organization Address [facility] P dg Number [facility] [address] [place] [address] * TRANSFUSE PLASMA (FFP) (07/13/2021 12:51 AM MULTIMEDIA ARTIST) * TRANSFUSE PLASMA (FFP) (07/13/2021 12:51 AM MULTIMEDIA ARTIST) * TRANSFUSE CRYOPRECIPITATE (07/13/2021 12:34 AM MULTIMEDIA ARTIST) * TRANSFUSE CRYOPRECIPITATE (07/13/2021 12:34 AM MULTIMEDIA ARTIST) * PREPARE PLASMA (FFP) (07/13/2021 12:11 AM MULTIMEDIA ARTIST) Pathologist [facility] Units Ordered 2 [facility] Unit Number [id number] [facility] Blood Component THAWED PLASMA [facility] Type Unit Division 00 [facility] MAIN [facility] Status OF Unit TRANSFUSED [facility] ISSUE DATE TIME [facility] PRODUCT CODE K1380E86 [facility] BLOOD TYPE B POS [facility] CODING STATUS 7300 [facility]U [facility] BLOOD [id number] [facility] EXPIRATION DATE Transfusion OK TO TRANSFUSE [facility] Status Unit Number [id number] [facility] Blood Component APHERESIS PLASMA THAWED [facility] Type Unit Division 00 [facility] Status OF Unit TRANSFUSED KU MAIN LAB ISSUE DATE TIME [facility]U MAIN [facility] PRODUCT CODE F0590K17 [facility] MAIN [facility] BLOOD TYPE B POS [facility]U MAIN [facility] CODING STATUS 7300 KU MAIN [facility] BLOOD [id number] [facility] EXPIRATION DATE Transfusion OK TO TRANSFUSE [facility] Status Specimen Other (Specify) Performing Organization Address City/[facility]/ZIP Code P dg Number KU MAIN LAB [address] [place] [address] * TRANSFUSE APHERESIS PLATELETS (07/13/2021 12:07 AM MULTIMEDIA ARTIST) * TRANSFUSE APHERESIS PLATELETS (07/13/2021 12:07 AM MULTIMEDIA ARTIST) * TRANSFUSE RBC'S (07/12/2021 11:29 PM MULTIMEDIA ARTIST) Specimen Blood (substance) * TRANSFUSE RBC'S (07/12/2021 11:29 PM MULTIMEDIA ARTIST) Specimen Blood (substance) * TRANSFUSE RBC'S (07/12/2021 11:28 PM MULTIMEDIA ARTIST) Specimen Blood (substance) * TRANSFUSE RBC'S (07/12/2021 11:28 PM MULTIMEDIA ARTIST) Specimen Blood (substance) * (ABNORMAL) CBC (07/12/2021 10:50 PM MULTIMEDIA ARTIST) White Blood 22.2 (H) 4.5 - 11.0 [...] LAB Specimen Blood (substance) Performing Organization Address City/[facility]/ZIP Code P dg Number KU MAIN [facility] [address] [place] [address] * PREPARE APHERESIS PLATELETS (07/12/2021 10:20 PM MULTIMEDIA ARTIST) Units Ordered 1 MAIN LAB Unit Number [id number] MAIN LAB Blood Component APHERESIS PLT,LEUKO REDUCED, [facility]U MAIN LAB Type BACTERIAL MONITOR 7D, IRRADIATED,2ND CONT Unit Division 00 MAIN LAB Status OF Unit TRANSFUSED MAIN LAB ISSUE DATE TIME KU MAIN [facility] PRODUCT CODE [id number] [facility]IN [facility] BLOOD TYPE A NEG [facility]U MAIN [facility] CODING STATUS 0600 [facility] MAIN [facility] BLOOD [id number] MAIN LAB EXPIRATION DATE Transfusion OK TO TRANSFUSE MAIN LAB Status Specimen Other (Specify) Performing Organization Address [facility] P dg Number MAIN LAB [address] [place] [address] * PREPARE CRYOPRECIPITATE (07/12/2021 9:55 PM MULTIMEDIA ARTIST) Units Ordered 1 MAIN LAB Unit Number [id number] [facility] MAIN LAB Blood Component CRY 5 POOLED [facility]U MAIN [facility] Type Unit Division 00 MAIN LAB Status OF Unit TRANSFUSED MAIN LAB ISSUE DATE TIME MAIN LAB PRODUCT CODE [id number] MAIN LAB BLOOD TYPE O POS MAIN LAB CODING STATUS 5100 MAIN LAB BLOOD [id number] MAIN LAB EXPIRATION DATE Transfusion OK TO TRANSFUSE MAIN LAB Status Specimen Other (Specify) Performing Organization Address [facility] P dg Number MAIN LAB [address] [place] [address] * (ABNORMAL) TEG WITH KAOLIN (07/12/2021 9:15 PM MULTIMEDIA ARTIST) MA Kaolin 44.2 (L) >49.9 MM REFERENCE LAB R Kaolin 3.2 <9.1 MIN REFERENCE LAB RK Kaolin 7.4 <12.1 MIN REFERENCE LAB K Kaolin 4.2 (H) <3.1 MIN REFERENCE LAB Angle Kaolin 48.0 (L) >54.9 DEG REFERENCE LAB Lysis30 0.0 <8.1 % REFERENCE LAB Specimen Blood (substance) Performing Organization Address [facility] P dg Number REFERENCE LAB REFERENCE LAB See results for address. * IONIZED CALCIUM (07/12/2021 9:15 PM MULTIMEDIA ARTIST) Ionized Calcium 1.02 1.0 - 1.3 MMOL/L MAIN LAB Specimen Blood (substance) Performing Organization Address [facility]/[place] [facility] [place] MAIN LAB [address] [place] [phone] * (ABNORMAL) PHOSPHORUS (07/12/2021 9:15 PM MULTIMEDIA ARTIST) Phosphorus 5.6 (H) 2.0 - 4.5 MG/DL KU MAIN LAB Specimen Blood (substance) Performing Organization Address [facility] Code P dg Number KU MAIN LAB [address] [place] [address] * MAGNESIUM (07/12/2021 9:15 PM MULTIMEDIA ARTIST) Magnesium 2.5 1.6 - 2.6 mg/dL KU MAIN LAB Specimen Blood (substance) Performing Organization Address [facility] P dg Number KU MAIN LAB [address] [place] [address] * (ABNORMAL) COMPREHENSIVE METABOLIC PANEL (07/12/2021 9:15 PM MULTIMEDIA ARTIST) Pathologist [facility] Sodium 141 137 - 147 MMOL/L KU [...] equation Specimen Blood (substance) Performing Organization Address [facility]/ZIP Code P dg Number KU MAIN LAB [address] [place] [address] * (ABNORMAL) CBC (07/12/2021 9:15 PM MULTIMEDIA ARTIST) White Blood 21.4 (H) 4.5 - 11.0 K/UL MAIN LAB Cells RBC 3.01 (L) 4.4 - 5.5 M/UL MAIN LAB Hemoglobin 9.0 (L) 13.5 - 16.5 GM/DL MAIN LAB Hematocrit 27.5 (L) 40 - 50 % [facility]3] LAB MCV 91.4 80 - 100 FL [facility]3] LAB MCH 29.8 26 - 34 PG MAIN LAB MCHC 32.6 32.0 - 36.0 G/DL [facility]3] LAB RDW 14.2 11 - 15 % [facility]3] LAB Platelet Count 135 (L) 150 - 400 K/UL [facility]3] LAB MPV 9.2 7 - 11 FL [facility]3] LAB Specimen Blood (substance) Performing Organization Address City/[facility]/ZIP Code P dg Number MAIN LAB [address] [place] [address] * (ABNORMAL) POC GLUCOSE (07/12/2021 8:51 PM MULTIMEDIA ARTIST) [facility] Glucose, POC 116 (H) 70 - 100 MG/DL MAIN LAB Specimen Performing Organization Address City/[facility] Code P dg Number MAIN LAB [address] [place] [address] * (ABNORMAL) POC SODIUM (07/12/2021 8:50 PM MULTIMEDIA ARTIST) [facility] Sodium-POC 136 (L) 137 - 147 MMOL/L MAIN LAB Specimen Performing Organization Address [facility] P dg Number MAIN LAB [address] [place] [address] * POC POTASSIUM (07/12/2021 8:50 PM MULTIMEDIA ARTIST) [facility] Potassium-POC 5.0 3.5 - 5.1 MMOL/L MAIN LAB Specimen Performing Organization Address City/[facility] P dg Number MAIN LAB [address] [place] [address] * (ABNORMAL) POC HEMATOCRIT (07/12/2021 8:50 PM MULTIMEDIA ARTIST) [facility] Hemoglobin POC 7.8 (L) 13.5 - 16.5 GM/DL MAIN LAB Hematocrit POC 23.0 (L) 40 - 50 % MAIN LAB Specimen Performing Organization Address [facility]/ZIP Code P dg Number MAIN LAB [address] [place] [id number] * (ABNORMAL) POC BLOOD GAS ARTERIAL (07/12/2021 8:50 PM MULTIMEDIA ARTIST) PH-ART-POC 7.39 7.35 - 7.45 KU MAIN LAB TMF7-XDP-GDZ 32 (L) 35 - 45 MMHG KU MAIN LAB PO2-ART-POC 103 (H) 80 - 100 MMHG KU MAIN LAB Base 6.0 MMOL/L KU MAIN LAB Def-ART-POC O2 Sat-ART-POC 98.0 95 - 99 % KU MAIN LAB Bicarbonate-ART 19.1 (L) 21 - 28 MMOL/L KU MAIN LAB -POC Specimen Performing Organization Address City/State/ZIP Code P dg Number MAIN LAB [address] [place] [address] * TYPE & CROSSMATCH (07/12/2021 11:45 AM MULTIMEDIA ARTIST) Units Ordered 3 KU MAIN LAB Crossmatch 07/15/2021,2359 KU MAIN LAB Expires Record Check FOUND [facility]U MAIN LAB ABO/RH(D) O NEG KU MAIN LAB Antibody Screen NEG KU MAIN LAB Electronic YES KU MAIN LAB Crossmatch Unit Number [id number] MAIN LAB Blood Component RBC,ADSOL,LEUKO REDUCED,2ND KU MAIN L AB Type CONT. Unit Division 00 KU MAIN LAB Status OF Unit TRANSFUSED KU MAIN LAB ISSUE DATE TIME KU MAIN LAB PRODUCT CODE [id number] KU MAIN LAB BLOOD TYPE O NEG KU MAIN LAB CODING STATUS 9500 KU MAIN LAB BLOOD [id number] KU MAIN LAB EXPIRATION DATE Transfusion OK TO TRANSFUSE KU MAIN LAB Status Crossmatch COMPATIBLE,ELECTRONIC KU MAIN LAB Result Unit Number [id number] MAIN LAB Blood Component RBC,ADSOL,LEUKO REDUCED,2ND KU MAIN L AB Type CONT. Unit Division 00 KU MAIN LAB Status OF Unit TRANSFUSED KU MAIN LAB ISSUE DATE TIME [id number] KU MAIN LAB PRODUCT CODE [id number] KU MAIN LAB BLOOD TYPE O NEG KU MAIN LAB CODING STATUS 9500 KU MAIN LAB BLOOD [id number] KU MAIN LAB EXPIRATION DATE Transfusion OK TO TRANSFUSE KU MAIN LAB Status Crossmatch COMPATIBLE,ELECTRONIC KU MAIN LAB Result Unit Number [id number] MAIN LAB Blood Component RBC,ADSOL,LEUKO REDUCED,2ND KU MAIN L AB Type CONT. Unit Division 00 KU MAIN LAB Status OF Unit TRANSFUSED KU MAIN LAB ISSUE DATE TIME KU MAIN LAB PRODUCT CODE [id number] KU MAIN LAB BLOOD TYPE O NEG KU MAIN LAB CODING STATUS 9500 KU MAIN LAB BLOOD [id number] KU MAIN LAB EXPIRATION DATE Transfusion OK TO TRANSFUSE KU MAIN LAB Status Crossmatch COMPATIBLE,ELECTRONIC [facility]U MAIN LAB Result Specimen Performing Organization Address City/State/ZIP Code P dg Number MAIN LAB [address] [place] [address] * TELEMETRY STRIPS-SCAN (07/12/2021 12:00 AM MULTIMEDIA ARTIST) Narrative 07/12/2021 12:00 AM MULTIMEDIA ARTIST Ordered by an unspecified provider. * TELEMETRY STRIPS-SCAN (07/12/2021 12:00 AM MULTIMEDIA ARTIST) Narrative 07/12/2021 12:00 AM MULTIMEDIA ARTIST Ordered by an unspecified provider. * TELEMETRY STRIPS-SCAN (07/12/2021 12:00 AM MULTIMEDIA ARTIST) Narrative 07/12/2021 12:00 AM MULTIMEDIA ARTIST Ordered by an unspecified provider. * ECG-SCAN (07/12/2021 12:00 AM MULTIMEDIA ARTIST) Narrative 07/12/2021 12:00 AM MULTIMEDIA ARTIST Ordered by an unspecified provider. * ECG-SCAN (07/12/2021 12:00 AM MULTIMEDIA ARTIST) Narrative 07/12/2021 12:00 AM MULTIMEDIA ARTIST Ordered by an unspecified provider. 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 stroke (HCC) Unspecified cerebral artery occlusion w ith cerebral infarction Coagulopathy (HCC) Other and unspecified coagulation defec ts Hypovolemic shock (HCC) Other shock without mention of trauma NSTEMI, initial episode of care (HCC) Acute myocardial infarction, subendocar dial infarction, initial episode of care * Advanced Care Planning/Resuscitation Status - Keanu Shepherd DO - 07/12/2021 10:40 PM MULTIMEDIA ARTIST Advance Care Planning/Resuscitation Status Conversation Individuals present [...] patient/surrogate wishes: None Keanu Shepherd DO [id number] IMEDIA ARTIST documented in this encounter Admitting Diagnoses Diagnosis Colon obstruction (HCC) Unspecified intestinal obstruction documented in this encounter Administered Medications Action Date Dose Rate Site Medication Order MAR Action 07/12/2021 12:00 PM MULTIMEDIA ARTIST 1,000 mg acetaminophen (TYLENOL EXTRA STRENGTH) Given tablet 1,000 mg 1,000 mg, Oral, ONCE, 1 dose, On Mon07/12/21 at 1130, TOTAL ACETAMINOPHEN DOSE NOT TO EXCEED 4GM DAILY, Pre-Op 07/15/2021 1:49 PM MULTIMEDIA ARTIST 1,000 mg acetaminophen (TYLENOL EXTRA STRENGTH) Given tablet 1,000 mg 1,000 mg, Oral, EVERY 8 HOURS, 9 doses , First dose on Mon07/12/21 at 2000, Last dose on Mon07/15/21 at 1400, Total acetaminophen dose not to exceed 4 gm/day 1,000 mg Given 07/15/2021 6:38 AM MULTIMEDIA ARTIST 1,000 mg Given 07/14/2021 9:00 PM MULTIMEDIA ARTIST 1,000 mg Given 07/14/2021 2:06 PM MULTIMEDIA ARTIST 1,000 mg Given 07/14/2021 5:47 AM MULTIMEDIA ARTIST 1,000 mg Given 07/13/2021 9:23 PM MULTIMEDIA ARTIST 1,000 mg Given 07/13/2021 1:59 PM MULTIMEDIA ARTIST 07/13/2021 1:45 AM MULTIMEDIA ARTIST 25 g 120 mL/hr albumin 25% injection 25 g Given - New 100 mL, 25 g, Intravenous, at 120 mL/hr, Bag ONCE, 1 dose, On Mon07/13/21 at 0230 07/20/2021 8:53 AM MULTIMEDIA ARTIST 81 mg aspirin EC tablet 81 mg Given 81 mg, Oral, DAILY, First dose on Mon07/13/21 at 1845, Until Discontinued 81 mg Given 07/19/2021 8:07 AM MULTIMEDIA ARTIST 81 mg Given 07/18/2021 8:25 AM MULTIMEDIA ARTIST 81 mg Given 07/17/2021 9:12 AM MULTIMEDIA ARTIST 81 mg Given 07/16/2021 8:00 AM MULTIMEDIA ARTIST 81 mg Given 07/15/2021 8:19 AM MULTIMEDIA ARTIST 81 mg Given 07/14/2021 8:49 AM MULTIMEDIA ARTIST 81 mg Given 07/13/2021 6:12 PM MULTIMEDIA ARTIST 07/20/2021 8:50 AM MULTIMEDIA ARTIST 25 mg atenoloL (TENORMIN) tablet 25 mg Given 25 mg, Oral, EVERY MORNING, First dose on Mon07/13/21 at 0800, Until Discontinued, Hold for heart rate < 60 bpm or SBP <100 25 mg Given 07/19/2021 8:07 AM MULTIMEDIA ARTIST 25 mg Given 07/18/2021 8:25 AM MULTIMEDIA ARTIST 07/20/2021 8:50 AM MULTIMEDIA ARTIST 40 mg atorvastatin (LIPITOR) tablet 40 mg Given 40 mg, Oral, DAILY, First dose on Mon07/13/21 at 2130, Until Discontinued 40 mg Given 07/19/2021 8:07 AM MULTIMEDIA ARTIST 40 mg Given 07/18/2021 8:25 AM MULTIMEDIA ARTIST 40 mg Given 07/17/2021 9:12 AM MULTIMEDIA ARTIST 40 mg Given 07/16/2021 8:00 AM MULTIMEDIA ARTIST 40 mg Given 07/15/2021 8:19 AM MULTIMEDIA ARTIST 40 mg Given 07/14/2021 8:49 AM MULTIMEDIA ARTIST 40 mg Given 07/13/2021 9:37 PM MULTIMEDIA ARTIST 07/20/2021 8:52 AM MULTIMEDIA ARTIST 1 drop brimonidine (ALPHAGAN) 0.2 % ophthalmic Given solution 1 drop 1 drop, Both Eyes, TWICE DAILY, First dose on Mon07/15/21 at 1100, Until Discontinued 1 drop Given 07/19/2021 9:28 PM MULTIMEDIA ARTIST 1 drop Given 07/19/2021 8:08 AM MULTIMEDIA ARTIST 1 drop Given 07/18/2021 8:43 PM MULTIMEDIA ARTIST 1 drop Given 07/18/2021 8:31 AM MULTIMEDIA ARTIST 1 drop Given 07/17/2021 9:18 PM MULTIMEDIA ARTIST 1 drop Given 07/17/2021 9:13 AM MULTIMEDIA ARTIST 1 drop Given 07/16/2021 8:22 PM MULTIMEDIA ARTIST 1 drop Given 07/16/2021 8:00 AM MULTIMEDIA ARTIST 1 drop Given 07/15/2021 9:10 PM MULTIMEDIA ARTIST 1 drop Given 07/15/2021 11:10 AM MULTIMEDIA ARTIST 07/20/2021 11:33 AM MULTIMEDIA ARTIST 500 mg calcium carbonate (TUMS) chew tablet 500 Given mg 500 mg, Oral, EVERY 4 HOURS PRN, Starting on 07/17/21 at 2055, Until Mon07/20/21 at 1235, Indigestion/Heartburn, Each 500 mg tab delivers 200 mg elemental calcium 500 mg Given 07/19/2021 3:37 PM MULTIMEDIA ARTIST 500 mg Given 07/18/2021 2:34 PM MULTIMEDIA ARTIST 500 mg Given 07/18/2021 10:37 AM MULTIMEDIA ARTIST 500 mg Given 07/18/2021 3:12 AM MULTIMEDIA ARTIST 500 mg Given 07/17/2021 9:16 PM MULTIMEDIA ARTIST 07/13/2021 12:09 PM MULTIMEDIA ARTIST 2 g ceFAZolin (ANCEF) IVP 2 g Given 2 g, Intravenous, EVERY 8 HOURS, 3 doses, First dose on Mon07/12/21 at 2030, Last dose on Mon07/13/21 at 1230, IV PUSH -- RECONSTITUTE each 1 g vial b y adding 10 mLs of STERILE WATER (SW), fo r patients < 120 kg 2 g Given 07/13/2021 3:30 AM MULTIMEDIA ARTIST 2 g Given 07/12/2021 9:55 PM MULTIMEDIA ARTIST 07/12/2021 12:00 PM MULTIMEDIA ARTIST 200 mg celecoxib (CeleBREX) capsule 200 mg Given 200 mg, Oral, ONCE, 1 dose, On Mon07/12/21 at 1130, Pre-Op 07/16/2021 10:31 PM MULTIMEDIA ARTIST 50 mL/hr dextrose 5 % & 0.45% NaCl with KCl 20 Given - New mEq/L infusion Bag 1,000 mL, Intravenous, at 50 mL/hr, CONTINUOUS, Starting on Mon07/13/21 at 1415, Until 07/17/21 at 0938, May discontinue when PO intake is adequate. 50 mL/hr Given - New Bag 07/16/2021 2:43 AM MULTIMEDIA ARTIST 50 mL/hr Given - New Bag 07/15/2021 6:36 AM MULTIMEDIA ARTIST 50 mL/hr Given - New Bag 07/14/2021 2:09 PM MULTIMEDIA ARTIST 50 mL/hr Infusion Restarted 07/14/2021 11:09 AM MULTIMEDIA ARTIST 50 mL/hr Given - New Bag 07/13/2021 1:59 PM MULTIMEDIA ARTIST 07/20/2021 8:53 AM MULTIMEDIA ARTIST 1 drop dorzolamide (TRUSOPT) 2 % ophthalmic Given solution 1 drop 1 drop, Right Eye, TWICE DAILY, First dose on Mon07/15/21 at 1115, Until Discontinued, Give with timolol to equa l Cosopt. 1 drop Given 07/19/2021 9:29 PM MULTIMEDIA ARTIST 1 drop Given 07/19/2021 8:08 AM MULTIMEDIA ARTIST 1 drop Given 07/18/2021 8:45 PM MULTIMEDIA ARTIST 1 drop Given 07/18/2021 8:31 AM MULTIMEDIA ARTIST 1 drop Given 07/17/2021 9:18 PM MULTIMEDIA ARTIST 1 drop Given 07/17/2021 9:13 AM MULTIMEDIA ARTIST 1 drop Given 07/16/2021 8:22 PM MULTIMEDIA ARTIST 1 drop Given 07/16/2021 8:00 AM MULTIMEDIA ARTIST 1 drop Given 07/15/2021 9:10 PM MULTIMEDIA ARTIST 1 drop Given 07/15/2021 11:16 AM MULTIMEDIA ARTIST 07/20/2021 8:49 AM MULTIMEDIA ARTIST 20 mg famotidine (PEPCID) tablet 20 mg Given 20 mg, Oral, DAILY, First dose on Mon07/12/21 at 1645, Until Discontinued 20 mg Given 07/19/2021 8:07 AM MULTIMEDIA ARTIST 20 mg Given 07/18/2021 8:25 AM MULTIMEDIA ARTIST 20 mg Given 07/17/2021 9:12 AM MULTIMEDIA ARTIST 20 mg Given 07/16/2021 8:00 AM MULTIMEDIA ARTIST 20 mg Given 07/15/2021 8:19 AM MULTIMEDIA ARTIST 20 mg Given 07/14/2021 8:50 AM MULTIMEDIA ARTIST 20 mg Given 07/13/2021 8:32 AM MULTIMEDIA ARTIST 07/15/2021 8:19 AM MULTIMEDIA ARTIST 300 mg gabapentin (NEURONTIN) capsule 300 mg Given 300 mg, Oral, THREE TIMES DAILY, 9 doses, First dose on Mon07/12/21 at 1645, Last dose on Mon07/15/21 at 0900 300 mg Given 07/14/2021 9:00 PM MULTIMEDIA ARTIST 300 mg Given 07/14/2021 2:06 PM MULTIMEDIA ARTIST 300 mg Given 07/14/2021 8:49 AM MULTIMEDIA ARTIST 300 mg Given 07/13/2021 8:28 PM MULTIMEDIA ARTIST 300 mg Given 07/13/2021 2:00 PM MULTIMEDIA ARTIST 300 mg Given 07/13/2021 8:32 AM MULTIMEDIA ARTIST 07/12/2021 12:01 PM MULTIMEDIA ARTIST 600 mg gabapentin (NEURONTIN) capsule 600 mg Given 600 mg, Oral, ONCE, 1 dose, On Mon07/12/21 at 1130, Pre-Op 07/20/2021 6:07 AM MULTIMEDIA ARTIST 5,000 Units Abdomina l Tissue heparin (porcine) PF syringe 5,000 Units Given 5,000 Units, Subcutaneous, EVERY 8 HOURS, First dose on Mon07/13/21 at 1745, Until Discontinued, NOTE: This is a HIGH ALERT Medication. 5,000 Units Abdomen:LLQ Given 07/19/2021 9:32 PM MULTIMEDIA ARTIST 5,000 Units Arm, Right Given 07/19/2021 2:08 PM MULTIMEDIA ARTIST 5,000 Units Abdominal Tissue Given 07/19/2021 6:30 AM MULTIMEDIA ARTIST 5,000 Units Arm, Right Given 07/18/2021 8:48 PM MULTIMEDIA ARTIST 5,000 Units Arm, Right Given 07/18/2021 2:34 PM MULTIMEDIA ARTIST 5,000 Units Arm, Right Given 07/18/2021 6:53 AM MULTIMEDIA ARTIST 5,000 Units Arm, Right Given 07/17/2021 9:16 PM MULTIMEDIA ARTIST 5,000 Units Abdominal Tissue Given 07/17/2021 1:14 PM MULTIMEDIA ARTIST 5,000 Units Abdomen:RLQ Given 07/17/2021 6:34 AM MULTIMEDIA ARTIST 5,000 Units Arm, Left Given 07/16/2021 9:28 PM MULTIMEDIA ARTIST 5,000 Units Abdominal Tissue Given 07/16/2021 1:59 PM MULTIMEDIA ARTIST 5,000 Units Abdomen:RLQ Given 07/16/2021 6:22 AM MULTIMEDIA ARTIST 5,000 Units Abdomen:RLQ Given 07/15/2021 9:10 PM MULTIMEDIA ARTIST 5,000 Units Abdominal Tissue Given 07/15/2021 1:49 PM MULTIMEDIA ARTIST 5,000 Units Abdominal Tissue Given 07/15/2021 6:38 AM MULTIMEDIA ARTIST 5,000 Units Abdominal Tissue Given 07/14/2021 9:00 PM MULTIMEDIA ARTIST 5,000 Units Abdomen:RLQ Given 07/14/2021 2:07 PM MULTIMEDIA ARTIST 5,000 Units Arm, Left Given 07/14/2021 5:47 AM MULTIMEDIA ARTIST 5,000 Units Abdominal Tissue Given 07/13/2021 9:26 PM MULTIMEDIA ARTIST 5,000 Units Abdominal Tissue Given 07/13/2021 6:12 PM MULTIMEDIA ARTIST 07/12/2021 3:09 PM MULTIMEDIA ARTIST 0.5 mg HYDROmorphone injection (DILAUDID) 0.5 Given mg 0.5 mg, Intravenous, EVERY 10 MIN PRN, Starting on 07/12/21 at 1404, Until Mon07/12/21 at 1637, Pain Injectable, For Pain Score 4-6, For Pain Score 4-6 Maximum total dose of 2 mg Hold for RR < 10, PACU (only) 07/20/2021 8:53 AM MULTIMEDIA ARTIST 1 drop ketorolac (ACULAR) 0.5 % ophthalmic Given solution 1 drop 1 drop, Right Eye, FOUR TIMES DAILY, First dose on Kim 07/15/21 at 1300, Unti l Discontinued 1 drop Given 07/19/2021 9:00 PM MULTIMEDIA ARTIST 1 drop Given 07/19/2021 4:52 PM MULTIMEDIA ARTIST 1 drop Given 07/19/2021 12:38 PM MULTIMEDIA ARTIST 1 drop Given 07/19/2021 8:40 AM MULTIMEDIA ARTIST 1 drop Given 07/18/2021 8:42 PM MULTIMEDIA ARTIST 1 drop Given 07/18/2021 5:00 PM MULTIMEDIA ARTIST 1 drop Given 07/18/2021 2:34 PM MULTIMEDIA ARTIST 1 drop Given 07/18/2021 8:41 AM MULTIMEDIA ARTIST 1 drop Given 07/17/2021 9:17 PM MULTIMEDIA ARTIST 1 drop Given 07/17/2021 6:00 PM MULTIMEDIA ARTIST 1 drop Given 07/17/2021 1:13 PM MULTIMEDIA ARTIST 1 drop Given 07/17/2021 9:15 AM MULTIMEDIA ARTIST 1 drop Given 07/16/2021 8:23 PM MULTIMEDIA ARTIST 1 drop Given 07/16/2021 4:48 PM MULTIMEDIA ARTIST 1 drop Given 07/16/2021 12:25 PM MULTIMEDIA ARTIST 1 drop Given 07/16/2021 8:00 AM MULTIMEDIA ARTIST 1 drop Given 07/15/2021 9:10 PM MULTIMEDIA ARTIST 1 drop Given 07/15/2021 4:02 PM MULTIMEDIA ARTIST 1 drop Given 07/15/2021 1:49 PM MULTIMEDIA ARTIST 07/12/2021 10:06 PM MULTIMEDIA ARTIST 100 mL/hr lactated ringers infusion Dose/Rate 1,000 mL, Intravenous, at 100 mL/hr, Change CONTINUOUS, Starting on Mon07/12/21 at 1430, Until Mon07/13/21 at 0258 500 mL/hr Given - New Bag 07/12/2021 8:50 PM MULTIMEDIA ARTIST 100 mL/hr Given - New Bag 07/12/2021 2:37 PM MULTIMEDIA ARTIST 07/12/2021 8:40 PM MULTIMEDIA ARTIST 500 mL 3000 mL/hr lactated ringers infusion Given - New 1,000 mL, 500 mL, Intravenous, at 3,000 Bag mL/hr, BOLUS, 1 dose, On Mon07/12/21 at 2100 07/13/2021 8:36 AM MULTIMEDIA ARTIST 1,000 mL 100 mL/hr lactated ringers infusion Given - New 1,000 mL, 1,000 mL, Intravenous, at 100 Bag mL/hr, CONTINUOUS, Starting on Mon07/13/21 at 0545, Until Mon07/14/21 at 1112 1,000 mL 100 mL/hr Given - New Bag 07/13/2021 5:51 AM MULTIMEDIA ARTIST 07/13/2021 9:20 PM MULTIMEDIA ARTIST 500 mL 999 mL/hr lactated ringers infusion Given - New 500 mL, 500 mL, Intravenous, at 999 Bag mL/hr, BOLUS, 1 dose, On Mon07/13/21 at 2115 07/19/2021 9:30 PM MULTIMEDIA ARTIST 1 drop latanoprost (XALATAN) 0.005 % ophthalmic Given solution 1 drop 1 drop, Right Eye, AT BEDTIME DAILY, First dose on Mon07/15/21 at 2100, Unti l Discontinued, AFTER BREAKING TAMPER EVIDENT SEAL [CLEAR LID], THROW AWAY TH E CLEAR LID LEAVING THE COLORED LID. DO NOT PUT THE CLEAR LID BACK OVER THE COLORED LID. 1 drop Given 07/18/2021 8:44 PM MULTIMEDIA ARTIST 1 drop Given 07/17/2021 9:20 PM MULTIMEDIA ARTIST 1 drop Given 07/16/2021 8:23 PM MULTIMEDIA ARTIST 1 drop Given 07/15/2021 9:10 PM MULTIMEDIA ARTIST 07/20/2021 8:56 AM MULTIMEDIA ARTIST 200 mg megestroL (MEGACE) oral suspension 200 Given mg 200 mg, Oral, DAILY, First dose on Mon07/19/21 at 0915, Until Discontinued, NOTE: This is a HIGH ALERT Medication. 200 mg Given 07/19/2021 10:08 AM MULTIMEDIA ARTIST 07/12/2021 12:01 PM MULTIMEDIA ARTIST 500 mg metroNIDAZOLE (FLAGYL) 500 mg IVPB 100 Given - New mL Bag 500 mg, Intravenous, 100 mL, Administer over 30 Minutes, ONCE, 1 dose, On Mon07/12/21 at 1130, Administer upon arriva l to Pre/Post., Pre-Op 07/13/2021 3:28 AM MULTIMEDIA ARTIST 500 mg metroNIDAZOLE (FLAGYL) 500 mg IVPB 100 Given - New mL Bag 500 mg, 100 mL, Intravenous, Administer over 60 Minutes, EVERY 8 HOURS, 2 doses, First dose on Mon07/12/21 at 2000, Last dose on Mon07/13/21 at 0400 500 mg Given - New Bag 07/12/2021 10:00 PM MULTIMEDIA ARTIST 07/18/2021 6:58 AM MULTIMEDIA ARTIST 25 mg naloxegoL (MOVANTIK) tablet 25 mg Given 25 mg, Oral, DAILY, First dose on Mon07/13/21 at 0700, Until Discontinued, Give once daily until return of bowel flatus. 25 mg Given 07/16/2021 6:22 AM M[employer] 25 mg Given 07/15/2021 6:38 AM M[employer]IST 25 mg Given 07/14/2021 6:21 AM [employer]IST 25 mg Given 07/13/2021 8:32 AM M[employer]IST 07/12/2021 8:49 PM [employer] 0.4 mg nalOXone (NARCAN) injection 0.4 mg Given 0.4 mg, Intravenous, ONCE, 1 dose, On Mon07/12/21 at 2145, Dilute one ampule of naloxone 0.4 mg (1mL) with 9 mL NS for injection (for a total of 10 mL of dilution). PROTECT FROM LIGHT 07/19/2021 9:28 PM [employer] 1 drop netarsudiL (RHOPRESSA) 0.02 % soln Given ++patient own supply++ 1 drop, Right Eye, AT BEDTIME DAILY, First dose on Mon07/16/21 at 2100, Unti l Discontinued, ++patient own supply++ 1 drop Given 07/18/2021 8:45 PM [employer] 1 drop Given 07/17/2021 9:17 PM [employer] 1 drop Given 07/16/2021 8:22 PM [employer] 07/19/2021 9:32 PM [employer] 8 mg ondansetron (ZOFRAN) injection 8 mg Given 8 mg, Intravenous, EVERY 6 HOURS PRN, Starting on Mon07/14/21 at 1111, Until Mon07/20/21 at 1235, Nausea/Vomiting Injectable 8 mg Given 07/19/2021 8:17 AM [employer] 8 mg Given 07/18/2021 7:29 PM [employer] 8 mg Given 07/17/2021 10:58 AM [employer]IST 07/13/2021 8:00 AM M[employer] ARTIST 2 Diluted mL perflutren lipid microspheres (DEFINITY) Given injection 1-20 Diluted mL 1-20 Diluted mL, Intravenous, ONCE PRN, 1 dose, Starting on Mon07/13/21 at 0640 , Until Mon07/13/21 at 0800, For Procedure, A staff anesthesiologist may only administer Definity through a saline lock. If IV is in use or a port, PICC, or central line is being used a nurse must administer. NOTE: This is a HIGH ALERT Medication., MAC Procedure Area Only - Medications 07/12/2021 1:05 PM MULTIMEDIA ARTIST sodium chloride 0.9 % infusion Given - New 250 mL, 250 mL, Intravenous, at 10 Bag mL/hr, CONTINUOUS, Starting on Mon07/12/21 at 1130, Until Mon07/12/21 at 2318, Hang bag in Preop 250 mL 10 mL/hr Given - New Bag 07/12/2021 12:02 PM MULTIMEDIA ARTIST SODIUM CHLORIDE 0.9 % IV SOLP (Cabinet Override) NOW, 1 dose, On Mon07/12/21 at 1130, Created by cabinet override, Created by cabinet override 07/16/2021 7:59 AM MULTIMEDIA ARTIST 15 mmol 63 mL/hr sodium phosphate 15 mmol in dextrose 5% Given - New (D5W) 250 mL IVPB Bag 15 mmol, Intravenous, 250 mL, Administe r over 4 Hours, ONCE, 1 dose, On Mon07/16/21 at 0730 07/20/2021 8:52 AM MULTIMEDIA ARTIST 1 drop timoloL maleate (TIMOPTIC) 0.5 % Given ophthalmic drops 1 drop 1 drop, Right Eye, TWICE DAILY, First dose on Kim 07/15/21 at 1115, Until Discontinued, Give with dorzolamide to equal Cosopt 1 drop Given 07/19/2021 9:30 PM MULTIMEDIA ARTIST 1 drop Given 07/19/2021 8:08 AM MULTIMEDIA ARTIST 1 drop Given 07/18/2021 8:44 PM MULTIMEDIA ARTIST 1 drop Given 07/18/2021 8:31 AM MULTIMEDIA ARTIST 1 drop Given 07/17/2021 9:18 PM MULTIMEDIA ARTIST 1 drop Given 07/17/2021 9:13 AM MULTIMEDIA ARTIST 1 drop Given 07/16/2021 8:23 PM MULTIMEDIA ARTIST 1 drop Given 07/16/2021 8:00 AM MULTIMEDIA ARTIST 1 drop Given 07/15/2021 9:10 PM MULTIMEDIA ARTIST 1 drop Given 07/15/2021 11:21 AM MULTIMEDIA ARTIST 07/13/2021 3:28 AM MULTIMEDIA ARTIST 20 mL WATER FOR INJECTION, STERILE IJ SOLN Given (Cabinet Override) NOW, 1 dose, On Mon07/13/21 at 0330, Created by cabinet override, Created by cabinet override documented in this encounter Discontinued Medications Start Date End Date Medication Sig Discontinue Reason 06/22/2021 07/13/2021 colestipoL (COLESTID) 1 Removed from gram tablet CUT OUT STITCHER Med List 07/13/2021 hydrocortisone acetate Insert or Removed from (ANUSOL-HC) 25 mg rectal Apply 25 mg CUT OUT STITCHER Med List suppository to rectal area as directed every 12 hours. 04/30/2021 07/13/2021 ondansetron (ZOFRAN ODT) Dissolve one Removed from 4 mg rapid dissolve tablet by CUT OUT STITCHER Med List tablet mouth every 6 hours as needed for Nausea or Vomiting. Place on tongue to dissolve. 04/30/2021 07/13/2021 oxyCODONE (ROXICODONE) 5 Take one Removed from mg tablet tablet by CUT OUT STITCHER Med List mouth every 6 hours as [...] Recently Administered Medications Times are shown in MULTIMEDIA ARTIST. 07/19/2021 07/20/2021 Medication Order 07/18/2021 0807 (Given [...] 0630 (Given - Provider: Matt Cox , RN)1408 (Given - Provider: Victoria Gutierrez, RN)2132 (Given [...] Eugene RN)2100 (Given - Provider: Ana Rosenberg, RN) 0853 (Given - Provider: Dena Cotton, ERNST ) ketorolac (ACULAR) 0.5 % ophthalmic 0841 (Given - solution 1 drop Provider: Humberto 1 drop, Right Eye, FOUR TIMES DAILY, ERNST Aguirre)1434 ( Given First dose on Mon07/15/21 at 1300, Until - Provider: Humberto Aguirre RN)1700 (Given - Provider: Humberto Aguirre RN)2042 (Given - Provider: Sierra Morales RN) 2130 (Given - Provider: Ana Rosenberg, RN ) latanoprost (XALATAN) 0.005 % ophthalmic 2044 [...] 25 mg, Oral, DAILY, First dose on Earlene Durham RN) 07/13/21 at 0700, Until Discontinued, Give once [...] Eugene RN )2129 (Given - Provider: Ana Rosenberg RN) 0852 (Given - Provider: Dena Cotton, ERNST [...] 07/17/21 at 2055, Until - Provider: Sarmad Henao 2/1/22 at 1235, ERNST Aguirre)1434 (Given Indigestion/Heartburn, Each 500 mg tab - Provider: Sarmad matthews delivers 200 mg elemental calcium ERNST Aguirre) 1235 (Unheld by Provider - Provider: Jose, Orders Discontinue) cetirizine (ZyrTEC) tablet 5 mg 5 mg, Oral, DAILY PRN, Starting on Mon07/12/21 at 1638, Until Mon07/20/21 at 1235, Allergy symptoms 0817 (Given - Provider: Zack Eugene RN )213 (Given - Provider: Ana Rosenberg, ERNST) ondansetron [...] Concerns Noted Time Assessment 07/20/2021 8:48 AM MULTIMEDIA ARTIST A fall risk assessment has been complet ed for the patient documented as of this encounter Care Teams Start Date End Date Medication Reconciliation Technician Relationship Specialty 05/17/20 Angelo Gordon MD PCP - General Internal [address] [facility] [address] [place] [id number] 05/17/20 Bartolo Cornejo MD Internal [address] [facility] [address] [place] [id number] documented as of this encounter
--- OUTSIDE RECORDS SUMMARY | 2021-07-28 19:52 | XMS REPORT | Encounter Summary ---
Author Author [facility] Organization [facility] Address Unknown Phone Unavailable Care Team Providers Care Weather Anchor Name Role Phone Angelo Gordon MD PCP Bartolo Cornejo MD Unavailable Encounter Details Care Team Description Date Type Department 06/24/2021 Hospital Imaging: Main Campu s, Encounter Main Hospital [address] [facility] [address] [place] [address] Social History Date Tobacco Use Types Packs/Day Years Used Never Smoker Smokeless Tobacco: Never Used Comments Alcohol Use Standard Drinks/Week Not Currently 0 (1 standard drink = 0.6 o z pure alcohol) Sex Assigned at Date Recorded Male 05/18/2020 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 Take with food. 02/20/2020 atenoloL (TENORMIN) 50 mg Take 50 mg by 0 tablet mouth every morning. 04/03/2020 brimonidine (ALPHAGAN) INSTILL 1 0 0.2 % ophthalmic solution DROP INTO RIGHT EYE TWICE DAILY cetirizine (ZYRTEC) 10 mg Take 5 mg by 0 tablet mouth daily as needed. 06/22/2021 dicyclomine (BENTYL) 10 0 mg capsule [...] 06/08/2020 Miscellaneous Medical Urostomy 20 each Supply [facility] supplies and accessories Dispense one month of supplies Dx Bladder Cancer C67.9 04/30/2021 polyethylene glycol 3350 Take one 12 each 1 (MIRALAX) 17 g packet packet by mouth daily as needed. 04/28/2020 RHOPRESSA 0.02 % drop INSTILL 1 0 INTO RIGHT EYE AT BEDTIME 04/30/2021 senna/docusate Take one 90 tablet 0 (SENOKOT-S) 8.6/50 mg tablet by tablet mouth daily as needed. Vit A,C,X-Yhhm-Nygunn Take 2 0 (PRESERVISION AREDS) capsules by [id number],320-226-200 mouth daily. bcne-vj-cmiu cap 11/13/2020 07/20/2021 acetaminophen (TYLENOL) Take one 20 tablet 0 500 mg tablet tablet by mouth every 6 hours as needed for Pain. Max of 4,000 mg of acetaminophen in 24 hours. 06/22/2021 07/13/2021 colestipoL (COLESTID) 1 0 gram tablet 04/30/2021 07/13/2021 ondansetron (ZOFRAN ODT) Dissolve one 30 tablet 1 4 mg rapid dissolve tablet by tablet mouth every 6 hours as needed for Nausea or Vomiting. Place on tongue to dissolve. 04/30/2021 07/13/2021 oxyCODONE (ROXICODONE) 5 Take one 15 tablet 0 mg tablet tablet by mouth every 6 hours as needed for Pain documented as of this encounter Discharge Disposition [...] ABD/PEL EXTERNAL Routine 06/24/2021 IMAGING 12:00 AM OIL WELL DRILLER documented in this encounter Results * CT ABD/PEL EXTERNAL IMAGING (06/24/2021 12:00 AM OIL WELL DRILLER) Modality Anatomical Region Laterality Computed Radiography Specimen Narrative Scheduling, Silent - 07/20/2021 12:35 PM OIL WELL DRILLER This order has been auto finalized and does not contain a result. documented in this encounter Visit Diagnoses Not on filedocumented in this encounter Additional Health Concerns Noted Time Assessment 04/30/2021 9:50 AM OIL WELL DRILLER A fall risk assessment has been complet ed for the patient documented as of this encounter Care Teams Start Date End Date Weather Anchor Relationship Specialty 05/17/20 Angelo Gordon MD PCP - General Internal [address] [facility] Medicine [facility] [address] [place] [id number] 05/17/20 Bartolo Cornejo MD Internal [address] [facility] [address] [place] [address] documented as of this encounter
--- OUTSIDE RECORDS SUMMARY | 2021-07-28 19:52 | XMS REPORT | Encounter Summary ---
Author Author [facility] Organization [facility] Address Unknown Phone Unavailable Care Team Providers Care Intervention Specialist Name Role Phone Angelo Gordon MD PCP Bartolo Cornejo MD Unavailable Encounter Details Care Team Description Date Type Department 06/24/2021 Hospital Imaging: Main Campu s, Encounter Main Hospital [address] [facility] [address] [place] [address] Social History Date Tobacco Use Types Packs/Day Years Used Never Smoker Smokeless Tobacco: Never Used Comments Alcohol Use Standard Drinks/Week Not Currently 0 (1 standard drink = 0.6 o z pure alcohol) Sex Assigned at Date Recorded Male 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 Vit A,C,Y-Devs-Phtxtx Take 2 0 (PRESERVISION AREDS) capsules by 14,[id number] mouth daily. kgdd-es-knbj cap 11/13/2020 07/20/2021 acetaminophen (TYLENOL) Take one [...] CHEST EXTERNAL IMAGING Routine 06/24/2021 12:05 AM SPECIAL NEEDS TEACHER documented in this encounter Results * CT CHEST EXTERNAL IMAGING (06/24/2021 12:05 AM SPECIAL NEEDS TEACHER) Modality Anatomical Region Laterality Computed Radiography Specimen Narrative Scheduling, Silent - 07/20/2021 12:35 PM SPECIAL NEEDS TEACHER This order has been auto finalized and does not contain a result. documented in this encounter Visit Diagnoses Not on filedocumented in this encounter Additional Health Concerns Noted Time Assessment 04/30/2021 9:50 AM SPECIAL NEEDS TEACHER A fall risk assessment has been complet ed for the patient documented as of this encounter Care Teams Start Date End Date Intervention Specialist Relationship Specialty 05/17/20 Angelo Gordon MD PCP - General Internal [address] [facility] Medicine [facility] [address] [id number] 05/17/20 Bartolo Cornejo MD Internal [address] [facility] Medicine [address] [place] [id number] documented as of this encounter
[2021-07-28] MEDS ORDERED: ARTIFICAL TEARS 0.4 ML UNIT DOSE (REFRESH PLUS) OU PRN (21:00)
[2021-07-28] MEDS ORDERED: morphine INJ 4 MG/ML 1 ML (VIAL/SYRINGE) IV PRN (21:00)
[2021-07-28] MEDS ORDERED: RT-ALBUTEROL/IPRATROPIUM 3 ML (DUONEB) VIAL INH PRN (21:00)
[2021-07-28] MEDS ORDERED: BISACODYL 10 MG SUPP (DULCOLAX) PR PRN (21:00)
[2021-07-28] MEDS ORDERED: LORazepam INJ 2 MG/ML (ATIVAN) VIAL IVP PRN (21:00)
[2021-07-28] MEDS ORDERED: ACETAMINOPHEN 650 MG SUPP (TYLENOL) PR PRN (21:00)
[2021-07-28] MEDS ORDERED: GLYCOPYRROLATE 0.2 MG/ML (ROBINUL) 2 ML VIAL IV PRN (21:00)
[2021-07-28] MEDS ORDERED: PROMETHAZINE INJ 25 MG/ML (PHENERGAN) AMP IVP PRN (21:00)
[2021-07-28] MEDS ORDERED: ONDANSETRON 4 MG/2 ML (SDV) Z0FRAN IVP PRN (21:00)
[2021-07-28] MEDS ORDERED: SALIVA STIMULANT MOUTH SPRAY (BIOTENE) 1.5 OZ MM PRN (21:00)
--- NOTE | 2021-07-29 05:03 | Short Stay Summary-Hospitalist ---
History of Present Illness Source: old records Exam Limitations: clinical condition Date Seen 07/28/21 Time Seen by a Provider: 18:00 Attending Physician Catrachita Snyder DO PCP Angelo Gordon MD Referring Physician Date of Admission Jul 28, 2021 at 19:47 Home Medications & Allergies Home Medications Reviewed patient Home Medication Reconciliation performed by pharmacy medication reconciliations zoning technician and/or nursing. Patients Allergies have been reviewed. Allergies Allergies Coded Allergies chlorhexidine (Verified Allergy, Unknown, 07/20/21) erythromycin base (Verified Allergy, Unknown, 07/20/21) silver (Verified Allergy, Unknown, 07/20/21) Uncoded Allergies tegaderm ( Allergy, Unknown, 07/20/21) Past Sleyrgq-Pkptcw-Kjbtaf Hx Immunizations Up To Date Date of Influenza Vaccine: Mar 19, 2021 Current Status Primary Language: Serbian Past Medical History Surgeries: Bladder Surgery, Bowel Surgery Atrial Fibrillation, Coronary Artery Disease, High Cholesterol, Hypertension Stroke Benign Prostatic Hyperpl, Bladder Infection Gastroesophageal Reflux Arthritis Bladder Did You Recieve Any Treatments: Yes What Type of Treatment Did You: Chemotherapy, Surgical Intervention Family Medical History No Pertinent Family Hx Physical Exam Physical Exam Vital Signs Capillary Refill : Height, Weight, BMI Height: '" Weight: lbs. oz. kg; 21.92 BMI Method: Results Results/Procedures Labs Patient resulted labs reviewed. CATRACHITA SNYDER DO Jul 29, 2021 05:03
--- NOTE | 2021-07-29 05:53 | History & Physical ---
History of Present Illness HPI/Chief Complaint Comfort care protocol admission This is a 71-year-old white male who was admitted from inpatient rehab after rapid decline in function and was placed on comfort care protocol and 2 hours after admission. Source: family Date Seen 07/29/21 Time Seen by a Provider: 19:00 Attending Physician Catrachita Snyder DO PCP Angelo Gordon MD Referring Physician Date of Admission Jul 28, 2021 at 19:47 Home Medications & Allergies Home Medications Reviewed patient Home Medication Reconciliation performed by pharmacy medication reconciliations driver service technician and/or nursing. Patients Allergies have been reviewed. Allergies Allergies Coded Allergies chlorhexidine (Verified Allergy, Unknown, 07/20/21) erythromycin base (Verified Allergy, Unknown, 07/20/21) silver (Verified Allergy, Unknown, 07/20/21) Uncoded Allergies tegaderm ( Allergy, Unknown, 07/20/21) Past Ketmwqu-Csnrbt-Xntfps Hx Past Med/Social Hx: Reviewed Nursing Past Med/Soc Hx, Reviewed and Corrections made Patient Social History Marrital Status: Immunizations Up To Date Date of Influenza Vaccine: Mar 19, 2021 Past Medical History Surgeries: Bladder Surgery, Bowel Surgery Cardiac: Atrial Fibrillation, Coronary Artery Disease, High Cholesterol, Hypertension Neurological: Stroke Genitourinary: Benign Prostatic Hyperpl, Bladder Infection Gastrointestinal: Gastroesophageal Reflux Musculoskeletal: Arthritis Cancer: Bladder Did You Recieve Any Treatments: Yes What Type of Treatment Did You: Chemotherapy, Surgical Intervention Family History No Pertinent Family Hx Review of Systems Constitutional: see HPI Physical Exam Physical Exam Vital Signs Capillary Refill : Height, Weight, BMI Height: '" Weight: lbs. oz. kg; 21.92 BMI Method: General Appearance: Chronically ill, Moderate Distress, Thin Results Results/Procedures Labs Patient resulted labs reviewed. Assessment/Plan Admission Diagnosis End-of-life status Admission Status: Observation CATRACHITA SNYDER DO Jul 29, 2021 05:53
== END 2021-07-29 01:30 | disposition expired | DRG 951 ==
LOC: 4TH 19:47
PROVIDERS: ADMIT Internal Medicine; ATTEND Internal Medicine
DX: Z51.5 Encounter for palliative care (principal); Z66 Do not resuscitate; I48.91 Unspecified atrial fibrillation; I25.10 Atherosclerotic heart disease of native coronary artery without angina pectoris; E78.00 Pure hypercholesterolemia, unspecified; I10 Essential (primary) hypertension; N40.0 Benign prostatic hyperplasia without lower urinary tract symptoms; K21.9 Gastro-esophageal reflux disease without esophagitis; M19.90 Unspecified osteoarthritis, unspecified site; Z85.51 Personal history of malignant neoplasm of bladder; Z92.21 Personal history of antineoplastic chemotherapy